=== PATIENT | female | born 1960 | race Caucasian/White ===

== ENCOUNTER → 2019-07-05 11:14 | Outpatient (CLI) | payer MEDICARE, SELFPAY ==
[2019-07-05 10:49] VITALS: BMI 47.8
[2019-07-05 12:37] LABS: Absolute Lymphocyte Count 1.11 X10^3/uL (0.83-4.51); Absolute Neutrophil Count 5.1 X10^3/uL (2.0-7.7); Basophil# 0.06 X10^3/uL; Basophil% 0.8 % (0-1); Eosinophil# 0.09 X10^3/uL; Eosinophils% 1.3 % (0-5); Hematocrit 28.2 % (37-47); Hemoglobin 6.5 g/dL (12.0-15.0); Lymphocyte # 1.11 X10^3/ul (4.0); Lymphocyte % 15.6 % (19-41); Mean Corpuscular Hgb 14.5 pg (27.0-32.0); Mean Corpuscular Volume 63.1 fL (81-99); Monocyte# 0.72 X10^3/uL; Monocyte% 10.1 % (0-10); NRBC Flagged by Analyzer 0.6 % (0-5); Neutrophil # 5.12 X10^3/uL (2.7-7.7); Neutrophil % 71.8 % (47-70); POSITIVE MORPHOLOGY YES; Platelet Count 402 K/mm3 (150-450); RBC Distribution Width CV 22.7 % (11.6-14.6); RBC Distribution Width SD 49.1 fl (35.1-43.9); Red Blood Count 4.47 M/mm3 (4.2-5.4); White Blood Count 7.1 K/mm3 (4.4-11.0)
[2019-07-05 12:40] LABS: Differential Indicated SCAN CRITERIA MET
[2019-07-05 12:50] LABS: International Normalized Ratio 1.2; Prothrombin Time (Protime)PT. 15.1 SECONDS (11.7-14.9)
[2019-07-05 13:06] LABS: Anisocytosis 2+; Hypochromasia 2+; Ovalocyte 1+
[2019-07-05 13:23] LABS: ALB/GLOB Ratio 0.9 RATIO (0.9-2.4); AST(SGOT) 13 U/L (15-37); Alanine Aminotransfer ALT/SGPT 16 U/L (13-56); Albumin, Serum 3.9 g/dL (3.2-5.0); Alkaline Phosphatase 58 U/L (45-117); Anion Gap 9 (5-15); BUN 13 mg/dL (7-18); BUN/Creat Ratio 12.9 RATIO (10-20); Calcium,Total 9.3 mg/dL (8.5-10.1); Chloride 107 mmol/L (98-107); Cholesterol 112 mg/dL (200); Creatinine, Serum 1.01 mg/dL (0.55-1.02); EST Glomerular Filtration Rate 59 mL/min (>60); Est Glom Filt Rate - Afr Amer 72 mL/min (>60); Globulin 4.2 g/dL (2.2-4.2); Glucose 109 mg/dL (74-106); High Density Lipoprotein 46 mg/dL; Potassium 3.8 mmol/L (3.5-5.1); Protein, Total 8.1 g/dL (6.4-8.2); Sodium Level 139 mmol/L (136-145); T4 Free Direct 1.29 ng/dL (0.76-1.46); Thyroid Stim Hormone (TSH) 1.93 uIU/mL (0.358-3.74); Triglycerides 83 mg/dL; Very Low Density Lipoprotein 17 mg/dL (5-40)
[2019-07-05 13:25] LABS: Hemoglobin A1c < 3.5 % (4.2-6.3)
== END ==
PROVIDERS: PCP Internal Medicine; Referring Provider Internal Medicine; Visit Provider Internal Medicine
DX: I10 Essential (primary) hypertension (principal); I26.99 Other pulmonary embolism without acute cor pulmonale; F32.9 Major depressive disorder, single episode, unspecified; R73.03 Prediabetes
CPT/HCPCS: 36415; 80053; 80061; 83036; 84439; 84443; 85025; 85610

== ENCOUNTER → 2019-08-13 | Outpatient (CLI) | payer MEDICARE, SELFPAY ==
[2019-07-05 10:49] VITALS: BMI 47.8
--- NOTE | 2019-08-13 11:02 | RAD_ITS ---
STUDY: X-RAY - LEFT KNEE REASON FOR EXAM: Knee pain. TECHNIQUE: 2 view(s) of the knee. COMPARISON: None. FINDINGS: Normal visualized distal femur. Normal visualized proximal tibia and fibula. Normal proximal tibiofibular articulation. There are marginal osteophytes and [id number] joint space narrowing of the medial femorotibial compartment. Normal lateral femorotibial compartment. There marginal osteophytes and moderate joint space narrowing of the patellofemoral articulation. There are intra-articular bodies. RAD/Knee 1 or 2 Views IMPRESSION: Arthrosis of the medial femorotibial and patellofemoral compartments. Intra-articular bodies. Electronically Signed: Adrian Barnes MD at 11:40 EDT Tel , Service support ,
--- NOTE | 2019-08-13 11:09 | RAD_ITS ---
STUDY: X-RAY - RIGHT KNEE REASON FOR EXAM: Knee pain. TECHNIQUE: 2 view(s) of the knee. COMPARISON: None. FINDINGS: Normal visualized distal femur. Normal visualized proximal tibia and fibula. Normal proximal tibiofibular articulation. There are marginal osteophytes with moderately severe joint space narrowing of the medial femorotibial compartment. Normal lateral femorotibial compartment. There are marginal osteophytes with moderate joint space narrowing of the patellofemoral articulation. There are intra-articular bodies. RAD/Knee 1 or 2 Views IMPRESSION: Arthrosis of the medial femorotibial and patellofemoral compartments. Intra-articular bodies. Electronically Signed: Adrian Barnes MD at 11:41 EDT Tel , Service support ,
--- NOTE | 2019-08-13 11:16 | RAD_ITS ---
STUDY: X-RAY - LUMBAR SPINE REASON FOR EXAM: Female, 58 years old. BACK PAIN TECHNIQUE: 2 view(s) of the lumbar spine were obtained. COMPARISON: None FINDINGS: There is minor degree of scoliosis with preserved lateral alignment. There are moderate diffuse degenerative changes. Mineralization is decreased. BMI severely elevated. There is no intestinal obstruction. There is cholecystectomy. RAD/Lumbar Spine 2 or 3 Views IMPRESSION: 1. Moderate accelerated degenerative change. 2. Severely elevated BMI. 3. Osteopenia. Electronically Signed: Cuate Sharma, at 16:33 EDT Tel , Service support ,
== END | disposition home or self-care (01) ==
LOC: RAD 10:56
PROVIDERS: PCP Internal Medicine; Referring Provider Anesthesiology Pain Medicine; Visit Provider Anesthesiology Pain Medicine
DX: M25.561 Pain in right knee (principal); M25.562 Pain in left knee; M54.5 Low back pain
CPT/HCPCS: 72100; 73560

== ENCOUNTER 2019-11-29 08:47 | Outpatient (RCR) | payer MEDICARE, SELFPAY ==
[2019-07-05 10:49] VITALS: BMI 47.8
--- NOTE | 2019-11-29 11:52 | HP.PTEVAL_ITS ---
Patient's Visit Information NICOLE DUMONT is a 59 year old F referred to Physical Therapy by Dr. Virgilio Martinez MD with a diagnosis of back and knee pain. Date of Evaluation: 11/29/19 Physical Therapist: PREM Saenz - Visit Plan Plan: Pt might need help in the water. Pt may need a walke in the pool for stability and rest breaks. Pt to be seen in the AT setting 2 X/ week for 8 weeks for AT for general mobility, B knee AROM, Stretching, strengthening (knee and hip), core stability, trunk AROM, postural exercises, gait training, standing endurance, stairs, with HEP (already issued heel slides, QS, Bridges, clam shells, LAQ and standing up straight at the counter to reverse so much sitting). - Subjective Pt reports that the Dr sent her here to see if PT will help her cause she is bone on bone B knees but the R one is the worse one and Back pain that she has had for years. She reports that is is too painful to walk almost at all. When she does walk she uses a rollator that she leans on. She maybe takes about 300 steps a day. She has seen a surgeon but she has to have weight loss surgery first before a TKR can happen. She walks 3 steps to get into the house with help of her daughter. SHe lives with her daughter and does not leave the house very much. No issues with rolling over in bed. She has trouble getting out of a chair because of her knees and that they are really bad. Never tried any other PT. She reports that she has a growth behine her R knee and it hurts all the time. She has been sitting in her chair for about 10 years. 3 months ago she had an injection in her R knee but it did not help. - Pain R knee pain Pain Intensity (Out of 10): 10 Pain Intensity Range: 10 Comment: with standing L knee pain Pain Intensity (Out of 10): 6 Pain Intensity Range: 6 Back pain Pain Intensity (Out of 10): 3 - Objective AROM: -35 degrees and 82 degree R knee flexion. AROM: -20 degrees and 85 degrees L knee flexion. MMT: Hip flex R 3-/5 and L 3-/5, hip abd 4-/5 B, bridge less than 1/4 normal ROM, knee ext R 3-/5 and L 3-/5, knee flexion R 3+/5 and L knee flex 3+/5. Gait: Pt walks with short stride, flexed trunk, - Anticipated Interventions Thank you for the opportunity to evaluate your patient. For Medicare and Medicare HMO plans, please review the plan of care and approve it. It will need to be FAXED BACK to us at [phone] for Medicare purposes. For Medicare only, by signing this I certify the plan of care. Please let me know if there are questions or concerns regarding this plan of care. Physician Signature: __Date:
--- NOTE | 2019-11-29 14:11 | HP.PTEVAL_ITS ---
Patient's Visit Information NICOLE DUMONT is a 59 year old F referred to Physical Therapy by Dr. Virgilio Martinez MD with a diagnosis of back and knee pain. Date of Evaluation: 11/29/19 Physical Therapist: PREM Saenz - Visit Plan Frequency: 2x /Week Duration: 2 Months Plan: Pt might need help in the water. Pt may need a walke in the pool for stability and rest breaks. Pt to be seen in the AT setting 2 X/ week for 8 weeks for AT for general mobility, B knee AROM, Stretching, strengthening (knee and hip), core stability, trunk AROM, postural exercises, gait training, standing endurance, stairs, with HEP (already issued heel slides, QS, Bridges, clam shells, LAQ and standing up straight at the counter to reverse so much sitting). - Subjective Pt reports that the Dr sent her here to see if PT will help her cause she is bone on bone B knees but the R one is the worse one and Back pain that she has had for years. She reports that is is too painful to walk almost at all. When she does walk she uses a rollator that she leans on. She maybe takes about 300 steps a day. She has seen a surgeon but she has to have weight loss surgery first before a TKR can happen. She walks 3 steps to get into the house with help of her daughter. SHe lives with her daughter and does not leave the house very much. No issues with rolling over in bed. She has trouble getting out of a chair because of her knees and that they are really bad. Never tried any other PT. She reports that she has a growth behine her R knee and it hurts all the time. She has been sitting in her chair for about 10 years. 3 months ago she had an injection in her R knee but it did not help. - Pain R knee pain Pain Intensity (Out of 10): 10 Pain Intensity Range: 10 Comment: with standing L knee pain Pain Intensity (Out of 10): 6 Pain Intensity Range: 6 Back pain Pain Intensity (Out of 10): 3 - Objective AROM: -35 degrees and 82 degree R knee flexion. AROM: -20 degrees and 85 degrees L knee flexion. MMT: Hip flex R 3-/5 and L 3-/5, hip abd 4-/5 B, bridge less than 1/4 normal ROM, knee ext R 3-/5 and L 3-/5, knee flexion R 3+/5 and L knee flex 3+/5. Gait: Pt walks with short stride, flexed trunk, and bent over a straight cane and does not put her L heel down with standing due to increase pain. SHe only walked about 20 feet and liked to hold onto the wall and her cane. Discussed bringing her rollator as she would be more safe with it. Seated posture: rounded shoulders, PPT, flexed trunk. Standing posture: rounded shoulders, flexed trunk, R knee bent and heel not touching the ground - Goals Goal 1:: I HEP Goal Time Frame: 6-8 Weeks Goal 2:: Be able to walk from the waiting room back to the treatment room or pool with her rollator with SBA Goal Time Frame: 6-8 Weeks Goal 3:: Decrease R knee pain to 6/10 and L knee pain 3/10 with walking with least restricitive device Goal Time Frame: 6-8 Weeks Goal 4:: Increase R knee AROM -20 degrees extension to 90 degrees flexion and L knee AROM -10 degrees extension to 90 degrees flexion Goal Time Frame: 6-8 Weeks Goal 5:: Increase LE strength by 1/2 muscle grade ( at time of the eval: MMT: Hip flex R 3-/5 and L 3-/5, hip abd 4-/5 B, bridge less than 1/4 normal ROM, knee ext R 3-/5 and L 3-/5, knee flexion R 3+/5 and L knee flex 3+/50. Goal Time Frame: 6-8 Weeks - Rehabilitation Potential Rehabilitation Potential: Good - Anticipated Interventions Patient/Client Instruction: Educate patient on: Condition, Plan of Care Therapeutic Exercise to Include: Strength training, Postural training, Gait and locomotor training, In an aquatic setting, Active ROM, Dynamic Lumbar Stabilization, Scapular Strength/Stabilization For the Purpose of:: To decrease pain, To increase ROM, To improve nutrient delivery to tissue, To improve muscle performance and motor function, To improve ability to perform ADL's, To increase tolerance to activity/condition/position, To improve performance and independence with ADL's, To improve ability of physical actions for home/community/work/leisure, To improve gait and locomotor functions, To decrease soft tissue restriction, To increase flexibility/ROM, To improve endurance, To improve balance, To improve safety with gait Functional Training to Include: Gait training For the Purpose of:: To improve safety with gait Thank you for the opportunity to evaluate your patient. For Medicare and Medicare HMO plans, please review the plan of care and approve it. It will need to be FAXED BACK to us at [phone] for Medicare purposes. For Medicare only, by signing this I certify the plan of care. Please let me know if there are questions or concerns regarding this plan of care. Physician Signature: Date:
--- NOTE | 2020-02-21 14:57 | HP.PT.NRP ---
NICOLE DUMONT was seen in my office for initial evaluation on 11/29/19. The following Plan of Care was established for this patient: Initial Frequency: 2x /Week Initial Duration: 2 Months Patient/Client Instruction: Educate patient on: Condition, Plan of Care Therapeutic Exercise to Include: Strength training, Postural training, Gait and locomotor training, In an aquatic setting, Active ROM, Dynamic Lumbar Stabilization, Scapular Strength/Stabilization For the Purpose of:: To decrease pain, To increase ROM, To improve nutrient delivery to tissue, To improve muscle performance and motor function, To improve ability to perform ADL's, To increase tolerance to activity/condition/position, To improve performance and independence with ADL's, To improve ability of physical actions for home/community/work/leisure, To improve gait and locomotor functions, To decrease soft tissue restriction, To increase flexibility/ROM, To improve endurance, To improve balance, To improve safety with gait Functional Training to Include: Gait training For the Purpose of:: To improve safety with gait This patient was last seen in our office 11/29/19. Pertinent comments regarding their Physical therapy will appear below: Pt cancelled all of her pool appointments and did not reschedule her appointments. DC PT At this point I will be discontinuing this patient from physical therapy. I would be happy to see this patient again in the future if found appropriate by the physician. Thank you! Bessy Gordon, MPT
== END 2019-11-29 19:00 | disposition home or self-care (01) ==
LOC: PT 08:47
PROVIDERS: PCP Internal Medicine; Referring Provider Anesthesiology Pain Medicine; Visit Provider Anesthesiology Pain Medicine
DX: M54.9 Dorsalgia, unspecified (principal); M25.569 Pain in unspecified knee
CPT/HCPCS: 97162

== ENCOUNTER 2020-07-18 08:52 | Inpatient (IN) | payer MEDICARE, SELFPAY ==
[2019-07-05 10:49] VITALS: BMI 47.8
[2020-07-18] VITALS (24 sets, daily range): BP systolic 93–134; BP diastolic 55–105; PULSE 81–146; RESP 13–32; TEMP 36.4–37.2; O2SAT 90–99; BMI 64.6; BMI 60.1; BMI 60.2
--- NOTE | 2020-07-18 09:19 | RAD_ITS ---
STUDY: X-RAY CHEST REASON FOR EXAM: Female, 59 years old. Cough TECHNIQUE: Frontal view of the chest COMPARISON: None. FINDINGS: There are mild congestive changes noted. The lungs are otherwise clear. There are no pleural effusions. There is no pneumothorax. The heart is enlarged. The visualized osseous structures are within normal limits. RAD/Chest 1 View (Portable) IMPRESSION: Cardiomegaly with mild pulmonary vascular congestion. Electronically Signed: Ralph Musa MD at 10:17 EST Tel , Service support ,
--- NOTE | 2020-07-18 09:19 | CT_ITS ---
STUDY: CT ABDOMEN AND PELVIS WITHOUT CONTRAST REASON FOR EXAM: Female, 59 years old. Abdominal pain RADIATION DOSAGE (If Supplied By Facility): CTDIvol = ( 37.88 ) mGy, DLP = ( 1798.06 ) mGycm TECHNIQUE: Transaxial images were obtained from the dome of the diaphragm to the symphysis pubis without oral contrast, and without intravenous contrast. Sagittal and coronal images were reconstructed. Individualized dose optimization techniques were used for this CT. COMPARISON: None. FINDINGS: Evaluation of the abdominal viscera is limited in the absence of intravenous contrast. There is atelectasis at the lung bases. There is a trace right pleural effusion. The visualized portions of the heart and pericardium are within normal limits. The patient is status post cholecystectomy. The liver is low in density, consistent with fatty infiltration. The spleen is normal in size. The pancreas demonstrates an unremarkable unenhanced appearance. The adrenal glands are within normal limits. There are no renal or ureteral stones. There is no hydronephrosis. There is a moderate hiatal hernia. There is no bowel obstruction or inflammation. The appendix is visualized and appears normal. There is a small fat-containing umbilical hernia. There is anasarca in the lower anterior abdominal wall. The aorta is normal in caliber. There is a small amount of free fluid. There is no free air, fluid collection or lymphadenopathy. There are no destructive osseous lesions. There are degenerative changes noted in the spine. CT/Abdomen/Pelvis without Cont IMPRESSION: No bowel obstruction or inflammation. Normal appendix. No urinary calculi. No hydronephrosis. Moderate hiatal hernia. Small fat-containing umbilical hernia. Small amount of ascites. Anasarca. Trace right pleural effusion with overlying atelectasis. Electronically Signed: Ralph Musa MD at 10:33 EST Tel , Service support ,
[2020-07-18] MEDS: 0.9% Normal Saline 1,000 ML 150 ML IV (09:43)
[2020-07-18 10:14] LABS: Absolute Lymphocyte Count 1.13 X10^3/uL (0.83-4.51); Absolute Neutrophil Count 18.9 X10^3/uL (2.0-7.7); Basophil# 0.06 X10^3/uL; Basophil% 0.3 % (0-1); Eosinophils% 0.5 % (0-5); Hematocrit 32.5 % (37-47); Hemoglobin 8.7 g/dL (12.0-15.0); Lymphocyte # 1.13 X10^3/ul (4.0); Lymphocyte % 5.1 % (19-41); Mean Corp Hgb Conc 26.8 g/dL (32-36); Mean Corpuscular Hgb 17.8 pg (27.0-32.0); Mean Corpuscular Volume 66.6 fL (81-99); Monocyte# 1.58 X10^3/uL; Monocyte% 7.2 % (0-10); NRBC Flagged by Analyzer 0.2 % (0-5); Neutrophil # 18.93 X10^3/uL (2.7-7.7); Neutrophil % 85.6 % (47-70); POSITIVE DIFFERENTIAL YES; POSITIVE MORPHOLOGY YES; Platelet Count 302 K/mm3 (150-450); RBC Distribution Width CV 23.7 % (11.6-14.6); RBC Distribution Width SD 53.9 fl (35.1-43.9); Red Blood Count 4.88 M/mm3 (4.2-5.4); White Blood Count 22.1 K/mm3 (4.4-11.0)
[2020-07-18 10:30] LABS: ALB/GLOB Ratio 0.8 RATIO (0.9-2.4); AST(SGOT) 19 U/L (15-37); Alanine Aminotransfer ALT/SGPT 22 U/L (13-56); Albumin, Serum 3.3 g/dL (3.2-5.0); Alkaline Phosphatase 53 U/L (45-117); Anion Gap 9 (5-15); BUN 23 mg/dL (7-18); BUN/Creat Ratio 18.1 RATIO (10-20); Calcium,Total 8.4 mg/dL (8.5-10.1); Chloride 102 mmol/L (98-107); Creatinine, Serum 1.27 mg/dL (0.55-1.02); EST Glomerular Filtration Rate 45 mL/min (>60); Est Glom Filt Rate - Afr Amer 55 mL/min (>60); Estimated Creatinine Clearance 33.41 ml/min; Globulin 3.9 g/dL (2.2-4.2); Glucose 134 mg/dL (74-106); Lipase 45 U/L (73-393); Potassium 3.6 mmol/L (3.5-5.1); Protein, Total 7.2 g/dL (6.4-8.2); Sodium Level 137 mmol/L (136-145)
[2020-07-18 10:34] LABS: Differential Indicated SCAN CRITERIA MET
--- NOTE | 2020-07-18 11:02 | ED.VISSUMM ---
- ER Visit Summary Date of Service: 07/18/20 Chief Complaint: [Abdominal pain] History of Present Illness: The patient is a 59 F [presents to the emergency department with complaint of abdominal pain intermittently for the last week. Patient states that she has had no nausea or vomiting. Patient has had some loose stool for the last couple of days approximately 2/day. Patient denies any blood in her stool or black tarry stool. Patient also states that she is had a fever for the last couple of days. She denies any dysuria, urgency, or frequency. Patient denies any chest pain or shortness of breath. Patient has history of hypertension and she is had prior cholecystectomy. She denies any COVID-19 exposures.] Physical Examination: [HEENT-PERRLA, EOMI. Cranial nerves II through XII grossly intact. TMs clear. Mucous membranes moist. No adenopathy. Cardiovascular-irregularly irregular with no murmurs auscultated. Patient is tachycardic with a heart rate in the 140s. Lungs-clear to auscultation, chest wall stable without crepitus or subcu emphysema Abdomen-normoactive bowel sounds, soft, nontender, no rebound or rigidity, no peritoneal signs. Extremities-intact ?4, normal range of motion, normal pulses, atraumatic] Test Results: [EKG obtained arrival showed atrial fibrillation with a ventricular rate of 138 bpm with an incomplete right bundle branch block and nonspecific ST changes. CBC with differential showed a white count 22,000, hemoglobin 8.7, hematocrit 32, placed 302. Chemistries unremarkable. BUN was 23 and creatinine 1.27. Troponin was 0.016. Covid test was negative. Urinalysis ordered and pending. Chest x-ray 1 view obtained read by myself as no acute disease process and the radiologist thought she had some mild cardiomegaly and mild pulmonary vascular congestion. CT scan of the abdomen pelvis without contrast showed trace pleural effusion on the right otherwise nothing acute.] Emergency Department Course and Treatment: [The line established on arrival. Patient had blood cultures ordered. Patient was started empirically on Zosyn 4.5 g IV.] Patient received Cardizem 20 mg IV bolus. Treatment Plan: [Admit] Disposition: [Admit] Impression: [A. fib RVR-new onset Fever with leukocytosis-etiology uncertain] This note was generated with Dragon dictation software. It may contain incorrect words, spelling, and punctuation that were not noted in review of the chart prior to signing ED Disposition - Plan for ED Patient: Referrals: Emily Husain MD [Primary Care Provider] -
[2020-07-18 11:06] LABS: Differential Comment SCANNED
[2020-07-18 11:07] LABS: Anisocytosis 2+; Hypochromasia 1+; Macrocytosis 1+; Microcytosis 1+
[2020-07-18] MEDS: dilTIAZem 25 MG/5 ML Vial 20 MG IV BOLUS (11:11)
--- NOTE | 2020-07-18 11:19 | ECHOCS_ITS ---
Reason For Study: Afib/Flutter Procedure This was a 2D Doppler, Color Flow transthoracic echocardiogram. The study was technically difficult. Contrast injection was performed. Exam performed portable in ED. Left Ventricle Normal LV size. Technically limited study due to a fib with RVR. Unable to comment on LVEF. Please repeat echo when hearrt rate is bettter controlled. unable to comment on wall motion. Right Ventricle Mildly dilated right ventricle. Normal systolic function. Atria Normal left atrium. Normal right atrium. No doppler evidence for ASD. Mitral Valve There is mild to moderate mitral annular calcification. There is no mitral valve stenosis. Mild (1+) mitral valve insufficiency. Tricuspid Valve There is no tricuspid stenosis. Mild tricuspid valve insufficiency. Pulmonary artery systolic pressure is 55 mmHg. Aortic Valve Trisinus/trileaflet aortic valve. There is no aortic stenosis. No aortic valve insufficiency. Pulmonic Valve There is no pulmonic valvular stenosis. Trivial pulmonic valve insufficiency. Great Vessels Normal aortic root. Pericardium/Pleural No pericardial effusion. Medication Diluted definity 3ml given slow IV push to enhance endocardial definition. MMode/2D Measurements & Calculations LVIDd: 4.6 cm IVSd: 1.1 cm Ao root diam: 2.9 cm LVIDs: 3.8 cm LVPWd: 1.2 cm LA dimension: 4.1 cm FS: 17.6 % LAV(MOD-bp): 68.6 ml LA A4 area: 22.0 cm2 RA A4 area: 21.7 cm2 LAV(MOD-bp) Indexed: 29.7 ml/m2 LAV(MOD-sp2): 64.6 ml LAV(MOD-sp4): 68.8 ml Doppler Measurements & Calculations MV E max richmond: 118.6 cm/sec Ao V2 max: 120.0 cm/sec LV V1 max: 98.1 cm/sec Ao max P.8 mmHg LV V1 max P.9 mmHg MR max richmond: 411.5 cm/sec PA V2 max: 74.2 cm/sec TR max [place]: 332.9 cm/sec MR max P.7 mmHg TR max P.3 mmHg Interpretation Summary Technically limited study due to a fib with RVR. Unable to comment on LVEF. Please repeat echo when heart rate is bettter controlled. Mild (1+) mitral valve insufficiency. Mildly dilated right ventricle. Pulmonary artery systolic pressure is 55 mmHg. The study was technically limited. Contrast injection was performed. Ordering Physician: Balbir Lyon Referring Physician: Emily Husain Performed By: Valeriano Godoy RCS
--- NOTE | 2020-07-18 11:33 | HP.PCM_ITS ---
Problem List (1) Febrile illness, acute Status: Acute (2) Atrial fibrillation with RVR Status: Acute (3) Pulmonary embolism Status: Resolved Comment: 2008 (4) GERD (gastroesophageal reflux disease) Status: Chronic (5) Hives Status: Resolved (6) High blood pressure Status: Chronic (7) Gallstones Status: Resolved (8) Carpal tunnel syndrome Status: Chronic (9) Encounter for blood transfusion Status: Resolved (10) Blood clot in vein Status: Resolved Comment: Rt leg 2014 (11) Back problem Status: Chronic (12) Arthritis Status: Chronic (13) Allergies Status: Chronic History of Present Illness Date of Admission: 07/18/20 Chief Complaint: Generalized weakness and fever The patient is a 59 year old F has medical history is gone for previous PE on Coumadin who presented to the emergency department with generalized weakness. Patient symptoms started a week prior to her admission with abdominal pain. Danielle callahan has also noticed some loose stools for the past 2 days prior to admission. She also did experience aches as well as subjective fevers. Patient presented to the emergency department as a result of worsening symptoms. Patient denied any exposure in a patient with COVID-19. She lives with her daughter. Urgency department patient was found to be tachycardic EKG obtained demonstrated A. fib with RVR. His rapid antigen test came back negative however given her presentation an order was given for undergo PCR testing. Past Medical History Past Medical History (Chronic Problems): Chronic Problems (This Medical Record has been edited. Action required.) GERD (gastroesophageal reflux disease) (Chronic) High blood pressure (Chronic) Carpal tunnel syndrome (Chronic) Back problem (Chronic) Arthritis (Chronic) Allergies (Chronic) Medical History: Medical History (This Medical Record has been edited. Action required.) Pulmonary embolism (Resolved) I26.99 2007 GERD (gastroesophageal reflux disease) (Chronic) K21.9 Hives (Resolved) L50.9 High blood pressure (Chronic) I10 Gallstones (Resolved) K80.20 Carpal tunnel syndrome (Chronic) G56.00 Encounter for blood transfusion (Resolved) Z51.89 Blood clot in vein (Resolved) I82.90 Rt leg 2014 Back problem (Chronic) M53.9 Arthritis (Chronic) M19.90 Allergies (Chronic) T78.40XA Allergies enoxaparin [From Lovenox] Allergy (Severe, Verified 07/18/20 08:53) Rash & Itching green tea Allergy (Intermediate, Verified 07/18/20 08:53) Itching peaches Allergy (Severe, Uncoded 07/18/20 08:53) Unknown Home Medications: Ambulatory Orders Medication Instructions Recorded Circulation Vein Support PO 07/05/19 Fish Oil PO 07/05/19 Iron Pill PO 07/05/19 acetaminophen 325 mg tablet 325 mg PO BID PRN tab 07/05/19 calcium carb-magnesium carb PO 07/05/19 cholecalciferol (vitamin D3) 125 125 mcg PO DAILY 07/05/19 mcg (5,000 unit) capsule mecobalamin (vitamin B12) PO 07/05/19 sertraline 50 mg tablet 50 mg PO DAILY #60 tab 07/05/19 warfarin 5 mg tablet 5 mg PO DAILY #90 tab 07/06/19 lisinopril 20 mg tablet 20 mg PO DAILY #90 tab 07/09/19 pantoprazole 40 mg tablet,delayed 40 mg PO DAILY #90 tab 04/08/20 release Surgical History: Surgical History (This Medical Record has been edited. Action required.) History of cholecystectomy Z90.49 History of oral surgery Z98.890 Smoking Status: Former smoker - *Family History Maternal Family History: Family History (This Medical Record has been edited. Action required.) Mother Diabetes High cholesterol Father Diabetes Heart disease Hypertension Sister Diabetes High cholesterol Brother Diabetes Paternal Family History: Family History (This Medical Record has been edited. Action required.) Mother Diabetes High cholesterol Father Diabetes Heart disease Hypertension Sister Diabetes High cholesterol Brother Diabetes Review of Systems Constitutional: Reports: Anorexia, Chills, Fever, Malaise, Weakness HEENT: Denies: Head Aches, Sinus Congestion, Sinus Drainage Cardiovascular: Denies: Chest Pain, Orthopnea, Palpitations, Paroxysmal Noc. Dyspnea Gastrointestinal: Reports: Abdominal Pain, Nausea, Vomiting Genitourinary: Denies: Dysuria, Frequency, Hematuria, Urgency Musculoskeletal: Reports: Joint Pain Skin: Denies: Rash Neurological: Denies: Focal weakness, Numbness, Tingling Psychiatric: Denies: Homicidal Ideations, Suicidal Ideations VTE Information - Inpt Only VTE Present on Admission: No VTE Mechan Device Prophylaxis: None VTE Pharm Prophylaxis ordered?: Yes Patient Problems: Active and Suspected Problems (This Medical Record has been edited. Action required.) Febrile illness, acute (Acute) Atrial fibrillation with RVR (Acute) Objective: GENERAL: Appears ill-looking HEENT: Atraumatic; EYES; Anicteric, Normal Conjunctiva NECK; supple, normal thyroid, RESPIRATORY: Diminished to auscultation CARDIOVASCULAR: Regular S1 S2, GI: soft, normoactive bowel sounds, : No Renal angle tenderness; EXTREMITIES: No edema, no clubbing, MUSCULOSKELETAL: no muscle waisting NEURO: Awake; no lateralizing signs. SKIN: No Rash PSYCH; Flat affect - Physical Exam Vitals/I&O's: Vital Signs Temp Pulse Resp BP Pulse Ox 98.1 F 135 H 29 H 134/99 H 94 07/18/20 08:54 07/18/20 11:09 07/18/20 11:09 07/18/20 11:09 07/18/20 11:09 Oxygen Delivery Method Room Air Weight: 150.1 kg Body Mass Index (BMI) 64.6 Microbiology Past 72 Hours 07/18/20 09:30 Mucosa - Nose SARS-CoV-2 Antigen (Rapid) - Final Laboratory Results 07/18/20 09:30: WBC 22.1 H, RBC 4.88, Hgb 8.7 L, Hct 32.5 L, MCV 66.6 L, MCH 17.8 L, MCHC 26.8 L, RDW Std Deviation 53.9 H, RDW Coeff of Claudia 23.7 H, Plt Count 302, Immature Gran % (Auto) 1.300 H, Neut % (Auto) 85.6 H, Lymph % (Auto) 5.1 L, [place] % (Auto) 7.2, Eos % (Auto) 0.5, Baso % (Auto) 0.3, Absolute Neuts (auto) 18.9 H, Absolute Lymphs (auto) 1.13, Nucleated RBC % 0.2, Differential Comment SCANNED, Diff Path Review May foll, Hypochromasia 1+, Anisocytosis 2+, Microcytosis 1+, Macrocytosis 1+ 07/18/20 09:30: Sodium 137, Potassium 3.6, Chloride 102, Carbon Dioxide 26.0, Anion Gap 9, BUN 23 H, Creatinine 1.27 H, Estim Creat Clear Calc 33.41, Est GFR (MDRD) Af Amer 55 L, Est GFR (MDRD) Non-Af 45 L, BUN/Creatinine Ratio 18.1, Glucose 134 H, Calcium 8.4 L, Total Bilirubin 2.80 H, AST 19, ALT 22, Alkaline Phosphatase 53, Troponin I 0.016, Total Protein 7.2, Albumin 3.3, Globulin 3.9, Albumin/Globulin Ratio 0.8 L, Lipase 45 L 07/18/20 09:45: PT Pending, INR Pending 07/18/20 11:30: Lactic Acid Pending Current Medications Acetaminophen (Acetaminophen 325 Mg Tablet) 650 mg PO Q6H PRN PRN PRN Reason: Pain Score 1-10/Temp > 100.7 F Al Hydroxide/Mg Hydroxide (Mag Hydrox/Al Hydrox/Simeth 30 Ml Udc) 30 ml PO Q6H PRN PRN PRN Reason: Gastric Burning Albuterol Sulfate (Albuterol 2.5 Mg/3 Ml Vial.Neb.) 2.5 mg INHALATION Q2H PRN PRN PRN Reason: SOB/Wheezing Sodium Chloride () 1,000 mls @ 150 mls/hr IV .Q6H40M [facility] Last Admin: 07/18/20 09:43 Dose: 150 mls/hr Documented by: Diltiazem HCl 125 mg/ Dextrose 125 mls @ 5 mls/hr IV .Q25H [facility]; Protocol Sodium Chloride () 1,000 mls @ 125 mls/hr IV .Q8H [facility] Stop: 07/19/20 03:19 Lisinopril (Lisinopril 20 Mg Tablet) 20 mg PO DAILY [facility] Magnesium Hydroxide (Magnesium Hydroxide 30 Ml Udc) 30 ml PO DAILY PRN PRN PRN Reason: Constipation Melatonin (Melatonin 3 Mg Tablet) 3 mg PO QHS PRN PRN PRN Reason: INSOMNIA Nitroglycerin (Nitroglycerin (Inpatient Use) 0.4 Mg Tab.Subl) 0.4 mg SUBLINGUAL Q5M PRN PRN Reason: CARDIAC/CHEST PAIN Ondansetron HCl (Ondansetron 4 Mg/2 Ml Vial) 4 mg IV Q8H PRN PRN PRN Reason: NAUSEA/VOMITING Oxycodone HCl (Oxycodone 5 Mg Tablet) 5 mg PO Q4H PRN PRN PRN Reason: Pain Score 4-5 Oxycodone HCl (Oxycodone 5 Mg Tablet) 10 mg PO Q4H PRN PRN PRN Reason: Pain Score 6-10 Pantoprazole Sodium (Pantoprazole Sodium 40 Mg Tablet) 40 mg PO DAILY [facility] Promethazine HCl (Promethazine 25 Mg/Ml Syringe) 25 mg IM Q6H PRN PRN PRN Reason: Breakthrough Nausea/Vomiting Sertraline HCl (Sertraline 50 Mg Tablet) 50 mg PO DAILY [facility] Warfarin Sodium (Warfarin 5 Mg Tablet) 5 mg PO DAILY [facility] Assessment/Plan All Active Problems (This Medical Record has been edited. Action required.) Febrile illness, acute (Acute) Atrial fibrillation with RVR (Acute) Pulmonary embolism (Resolved) Hives (Resolved) Gallstones (Resolved) Encounter for blood transfusion (Resolved) Blood clot in vein (Resolved) Patient is a 59-year-old lady presented with abdominal pain, generalized weakness as well as subjective fever found to be in A. fib with RVR with leukocytosis and elevated lactic acid level with no obvious source of infection 1. Acute febrile illness ?Has no obvious source of infection, patient initially work-up including rapid COVID-19 antigen test came back negative however suspicion remains high hence requesting for PCR (Came back negative) 2. Paroxysmal A. fib with RVR ?Patient started on Cardizem titrated to keep heart rate less than 100. Patient already on Coumadin with a therapeutic INR 3. History of pulmonary embolism ?Is on Coumadin with a therapeutic INR 4. Lactic acidosis ?No obvious etiology. Checks x-ray obtained demonstrated normal nares vascular congestion and atelectasis. Ordered urinalysis in addition to PCR for COVID-19 5. Generalized osteoarthritis -pain meds as needed 6. Morbid obesity with BMI of 64.4 ?Weight loss advised 7. DVT prophylaxis ?Patient already on Coumadin Inpatient E&M: 34977 Init Hosp L3
[2020-07-18 11:38] LABS: International Normalized Ratio 2.5; Prothrombin Time (Protime)PT. 26.2 SECONDS (11.7-14.9)
[2020-07-18 12:21] LABS: Lactic Acid 2.1 mmol/L (0.4-1.9)
[2020-07-18] MEDS: oxyCODONE 5 MG Tablet 10 MG PO (13:41)
[2020-07-18 14:11] LABS: Fibrinogen 511 mg/dl (203-444)
[2020-07-18 14:19] LABS: CPK Total, Creatine Kinase 95 U/L (26-192); LDH 214 U/L (84-246)
[2020-07-18 14:23] LABS: D-Dimer Quantitative (DVT/PE) 1.32 FEU/ug/m (0.27-0.49)
[2020-07-18 14:35] LABS: Procalcitonin 1.21 ng/mL (0.00-0.09)
[2020-07-18 15:31] LABS: Reflex Lactate? Y
[2020-07-18] MEDS: 0.9% Normal Saline 1,000 ML 125 ML IV ×2 (15:39→23:03)
[2020-07-18 17:02] LABS: Lactic Acid 1.8 mmol/L (0.4-1.9)
--- NOTE | 2020-07-18 20:20 | PCS.PANDOC ---
PANDEMIC DOCUMENTATION INITIATED: Date: 07/18/2020 Time: 1900
[2020-07-18 23:11] LABS: Mucous, Urine 0 SEEN /hpf (<or=2+)
[2020-07-18 23:16] LABS: Color, Urine Amber (Yellow); Glucose, Dipstick Normal (Normal); Ketone-Dipstick 5 mg/dl (Negative); Leukocyte Esterase-Dipstick 500 /ul (Negative); Nitrite-Dipstick Positive (Negative); Occult Blood-Urine 250 /ul (Negative); Protein-Dipstick 100 mg/dl (Negative); Specific Gravity, Urine 1.025 (1.002-1.030); Urine Clarity Turbid (Clear); Urine Urobilinogen 8 mg/dl (Normal)
[2020-07-18 23:21] LABS: Urine Bilirubin Dipstick 3 mg/dL (Negative)
[2020-07-18 23:39] LABS: Amorphous Sediment 1+; Bacteria 4+ /hpf (None Seen); Red Blood Cells-Urine 10-25 SEEN /hpf (0-5); Squamous Epithelial Cells - UA 5-10 SEEN /hpf (5-10); Transitional Epithelial - Ur 0-5 SEEN /hpf (0-5); White Blood Cells >100 SEEN /hpf (0-5)
[2020-07-19] VITALS (29 sets, daily range): BP systolic 85–121; BP diastolic 53–85; PULSE 81–106; RESP 16–30; TEMP 36.4–37.1; O2SAT 90–99
[2020-07-19] MEDS: Ceftriaxone 1 GM/50 ML BAG IV ×2 (01:13→21:30)
[2020-07-19] MEDS: Acetaminophen 325 MG Tablet 650 MG PO ×2 (01:16→19:46)
[2020-07-19 06:13] LABS: Absolute Lymphocyte Count 1.64 X10^3/uL (0.83-4.51); Absolute Neutrophil Count 11.8 X10^3/uL (2.0-7.7); Basophil# 0.04 X10^3/uL; Basophil% 0.3 % (0-1); Eosinophil# 0.07 X10^3/uL; Eosinophils% 0.5 % (0-5); Hematocrit 31.7 % (37-47); Hemoglobin 8.1 g/dL (12.0-15.0); Lymphocyte # 1.64 X10^3/ul (4.0); Mean Corp Hgb Conc 25.6 g/dL (32-36); Mean Corpuscular Hgb 17.5 pg (27.0-32.0); Mean Corpuscular Volume 68.6 fL (81-99); Mean Platelet Vol. 10.6 fl (6.2-12.0); Monocyte# 1.38 X10^3/uL; Monocyte% 9.2 % (0-10); NRBC Flagged by Analyzer 0.3 % (0-5); Neutrophil # 11.77 X10^3/uL (2.7-7.7); Neutrophil % 78.6 % (47-70); POSITIVE MORPHOLOGY YES; Platelet Count 266 K/mm3 (150-450); RBC Distribution Width CV 23.9 % (11.6-14.6); RBC Distribution Width SD 56.7 fl (35.1-43.9); Red Blood Count 4.62 M/mm3 (4.2-5.4)
[2020-07-19 06:17] LABS: Differential Indicated SCAN CRITERIA MET
[2020-07-19 06:19] LABS: International Normalized Ratio 2.5; Prothrombin Time (Protime)PT. 26.9 SECONDS (11.7-14.9)
[2020-07-19 06:42] LABS: ALB/GLOB Ratio 0.8 RATIO (0.9-2.4); AST(SGOT) 16 U/L (15-37); Alanine Aminotransfer ALT/SGPT 22 U/L (13-56); Albumin, Serum 3.1 g/dL (3.2-5.0); Alkaline Phosphatase 58 U/L (45-117); Anion Gap 6 (5-15); BUN 28 mg/dL (7-18); BUN/Creat Ratio 24.6 RATIO (10-20); Calcium,Total 8.3 mg/dL (8.5-10.1); Chloride 103 mmol/L (98-107); Creatinine, Serum 1.14 mg/dL (0.55-1.02); EST Glomerular Filtration Rate 51 mL/min (>60); Est Glom Filt Rate - Afr Amer 62 mL/min (>60); Estimated Creatinine Clearance 40.99 ml/min; Glucose 107 mg/dL (74-106); Protein, Total 7.1 g/dL (6.4-8.2); Sodium Level 135 mmol/L (136-145)
[2020-07-19 06:47] LABS: Differential Comment SCANNED
[2020-07-19 06:48] LABS: Hypochromasia 2+
[2020-07-19 06:49] LABS: Anisocytosis 2+; Macrocytosis RARE; Microcytosis 2+; Ovalocyte RARE; Target Cells RARE
[2020-07-19 06:50] LABS: Schistocytes RARE
--- NOTE | 2020-07-19 07:30 | PCM.PN.HOSP ---
Patient Problems: Active and Suspected Problems (This Medical Record has been edited. Action required.) Febrile illness, acute (Acute) Atrial fibrillation with RVR (Acute) Reason for Visit: Sepsis New onset A. fib with RVR Subjective: Patient is a 59-year-old lady presented with abdominal pain, generalized weakness as well as subjective fever found to be in A. fib with RVR with leukocytosis and elevated lactic acid level with no obvious source of infection. Admitted to a monitored bed subsequent evaluation did reveal presence of acute cystitis antibiotics subsequently initiated Patient had runs of sustained VT. Objective: GENERAL: Appears ill-looking HEENT: Atraumatic; EYES; Anicteric, Normal Conjunctiva NECK; supple, normal thyroid, RESPIRATORY: Diminished to auscultation CARDIOVASCULAR: S1-S2 tachycardic GI: soft, normoactive bowel sounds, : No Renal angle tenderness; EXTREMITIES: No edema, no clubbing, MUSCULOSKELETAL: no muscle waisting NEURO: Awake; no lateralizing signs. SKIN: No Rash PSYCH; Flat affect Vitals/I&O's: Vital Signs Temp Pulse Resp BP Pulse Ox 97.5 F L 88 24 H 105/77 94 07/19/20 06:00 07/19/20 07:00 07/19/20 07:00 07/19/20 07:00 07/19/20 07:00 Oxygen Flow Rate (L/min) 2 Oxygen Delivery Method Room Air Weight: 149.2 kg Body Mass Index (BMI) 60.1 Intake and Output for Last 24 Hours 07/17/20 07/18/20 07/19/20 23:59 23:59 23:59 Intake Total 2715.33 / 2730.33 420 / 420 Balance 2715.33 / 2730.33 420 / 420 Microbiology Past 72 Hours 07/18/20 09:30 Mucosa - Nose SARS-CoV-2 Antigen (Rapid) - Final Laboratory Results 07/18/20 09:20: Fibrinogen 511 H, D-Dimer Quant (PE/DVT) 1.32 H* 07/18/20 09:30: WBC 22.1 H, RBC 4.88, Hgb 8.7 L, Hct 32.5 L, MCV 66.6 L, MCH 17.8 L, MCHC 26.8 L, RDW Std Deviation 53.9 H, RDW Coeff of Claudia 23.7 H, Plt Count 302, Immature Gran % (Auto) 1.300 H, Neut % (Auto) 85.6 H, Lymph % (Auto) 5.1 L, [place] % (Auto) 7.2, Eos % (Auto) 0.5, Baso % (Auto) 0.3, Absolute Neuts (auto) 18.9 H, Absolute Lymphs (auto) 1.13, Nucleated RBC % 0.2, Differential Comment SCANNED, Diff Path Review May foll, Hypochromasia 1+, Anisocytosis 2+, Microcytosis 1+, Macrocytosis 1+ 07/18/20 09:30: Sodium 137, Potassium 3.6, Chloride 102, Carbon Dioxide 26.0, Anion Gap 9, BUN 23 H, Creatinine 1.27 H, Estim Creat Clear Calc 33.41, Est GFR (MDRD) Af Amer 55 L, Est GFR (MDRD) Non-Af 45 L, BUN/Creatinine Ratio 18.1, Glucose 134 H, Calcium 8.4 L, Total Bilirubin 2.80 H, AST 19, ALT 22, Alkaline Phosphatase 53, Troponin I 0.016, Total Protein 7.2, Albumin 3.3, Globulin 3.9, Albumin/Globulin Ratio 0.8 L, Lipase 45 L 07/18/20 09:30: TSH 2.80 07/18/20 09:45: PT 26.2 H, INR 2.5 07/18/20 09:45: Procalcitonin 1.21 H 07/18/20 11:30: Lactic Acid 2.1 H* 07/18/20 11:46: COVID-19 (OLINDA) Negative 07/18/20 13:36: Lactate Dehydrogenase 214, Total Creatine Kinase 95, Troponin I 0.019, C-React Prot Ext Range 168.00 H 07/18/20 16:23: Troponin I < 0.015 07/18/20 16:23: Lactic Acid 1.8 07/18/20 22:56: Urine Color Gwen, Urine Clarity Turbid, Urine pH 5.0, Ur Specific [place] 1.025, Urine Protein 100 H, Urine Glucose (UA) Normal, Urine Ketones 5 H, Urine Occult Blood 250 H, Urine Nitrite Positive H, Urine Bilirubin 3 H, Urine Urobilinogen 8 H, Ur Leukocyte Esterase 500 H, Urine RBC 10-25 SEEN, Urine WBC >100 SEEN, Ur Squamous Epith Cells 5-10 SEEN, Ur Transition Epith Cell 0-5 SEEN, Amorphous Sediment 1+, Urine Bacteria 4+, Urine Mucus 0 SEEN 07/19/20 05:40: WBC 15.0 H, RBC 4.62, Hgb 8.1 L, Hct 31.7 L, MCV 68.6 L, MCH 17.5 L, MCHC 25.6 L, RDW Std Deviation 56.7 H, RDW Coeff of Claudia 23.9 H, Plt Count 266, MPV 10.6, Immature Gran % (Auto) 0.400, Neut % (Auto) 78.6 H, Lymph % (Auto) 11.0 L, [place] % (Auto) 9.2, Eos % (Auto) 0.5, Baso % (Auto) 0.3, Absolute Neuts (auto) 11.8 H, Absolute Lymphs (auto) 1.64, Nucleated RBC % 0.3, Differential Comment SCANNED, Hypochromasia 2+, Anisocytosis 2+, Microcytosis 2+, Macrocytosis RARE, Target Cells RARE, Ovalocytes RARE, Schistocytes RARE 07/19/20 05:40: PT 26.9 H, INR 2.5 07/19/20 05:40: Sodium 135 L, Potassium 4.0, Chloride 103, Carbon Dioxide 26.0, Anion Gap 6, BUN 28 H, Creatinine 1.14 H, Estim Creat Clear Calc 40.99, Est GFR (MDRD) Af Amer 62, Est GFR (MDRD) Non-Af 51 L, BUN/Creatinine Ratio 24.6 H, Glucose 107 H, Calcium 8.3 L, Total Bilirubin 1.90 H, AST 16, ALT 22, Alkaline Phosphatase 58, Total Protein 7.1, Albumin 3.1 L, Globulin 4.0, Albumin/Globulin Ratio 0.8 L Current Medications Acetaminophen (Acetaminophen 325 Mg Tablet) 650 mg PO Q6H PRN PRN PRN Reason: Pain Score 1-10/Temp > 100.7 F Last Admin: 07/19/20 01:16 Dose: 650 mg Documented by: Al Hydroxide/Mg Hydroxide (Mag Hydrox/Al Hydrox/Simeth 30 Ml Udc) 30 ml PO Q6H PRN PRN PRN Reason: Gastric Burning Albuterol Sulfate (Albuterol 2.5 Mg/3 Ml Vial.Neb.) 2.5 mg INHALATION Q2H PRN PRN PRN Reason: SOB/Wheezing Diltiazem HCl 125 mg/ Dextrose 125 mls @ 5 mls/hr IV .Q25H [facility]; Protocol Last Admin: 07/19/20 07:01 Dose: 15 mg/hr, 15 mls/hr Documented by: Sodium Chloride () 250 mls @ 15 mls/hr IV .[id number] PRN PRN Reason: Saline Flush Sodium Chloride () 250 mls @ 15 mls/hr IV .[id number] PRN PRN Reason: Additional IVPB Infusion Ceftriaxone Sodium (Rocephin) 1 gm in 50 mls @ 100 mls/hr IV QHS [facility] Last Infusion: 07/19/20 01:43 Dose: Infused Documented by: Influenza Virus Vaccine Quadrival (Influenza Vaccine (6mos+)/Pf 0.5 Ml Syringe) 0.5 ml IM .ONCE ONE Stop: 07/19/20 10:01 Lisinopril (Lisinopril 20 Mg Tablet) 20 mg PO DAILY [facility] Magnesium Hydroxide (Magnesium Hydroxide 30 Ml Udc) 30 ml PO DAILY PRN PRN PRN Reason: Constipation Melatonin (Melatonin 3 Mg Tablet) 3 mg PO QHS PRN PRN PRN Reason: INSOMNIA Nitroglycerin (Nitroglycerin (Inpatient Use) 0.4 Mg Tab.Subl) 0.4 mg SUBLINGUAL Q5M PRN PRN Reason: CARDIAC/CHEST PAIN Ondansetron HCl (Ondansetron 4 Mg/2 Ml Vial) 4 mg IV Q8H PRN PRN PRN Reason: NAUSEA/VOMITING Oxycodone HCl (Oxycodone 5 Mg Tablet) 5 mg PO Q4H PRN PRN PRN Reason: Pain Score 4-5 Oxycodone HCl (Oxycodone 5 Mg Tablet) 10 mg PO Q4H PRN PRN PRN Reason: Pain Score 6-10 Pantoprazole Sodium (Pantoprazole Sodium 40 Mg Tablet) 40 mg PO DAILY [facility] Promethazine HCl (Promethazine 25 Mg/Ml Syringe) 25 mg IM Q6H PRN PRN PRN Reason: Breakthrough Nausea/Vomiting Sertraline HCl (Sertraline 50 Mg Tablet) 50 mg PO DAILY [facility] Sodium Chloride (0.9% Saline Lock 10 Ml Syringe) 10 - 40 ml IV UD PRN PRN Reason: SALINE FLUSH Warfarin Sodium (Warfarin 5 Mg Tablet) 5 mg PO DAILY@1700 [facility] Last Admin: 07/18/20 17:43 Dose: 5 mg Documented by: STROKE Vital Signs/Narrative: Vital Signs Temp Pulse Resp BP Pulse Ox 07/19/20 07:00 88 24 H 105/77 94 07/19/20 06:57 87 07/19/20 06:00 97.5 F L 86 23 H 100/68 96 07/19/20 05:00 92 22 H 102/63 95 07/19/20 04:00 98.8 F 81 23 H 108/80 93 Medical Necessity - Tobacco Use Smoking Status: Former smoker Assessment/Plan All Active Problems (This Medical Record has been edited. Action required.) Febrile illness, acute (Acute) Atrial fibrillation with RVR (Acute) Pulmonary embolism (Resolved) Hives (Resolved) Gallstones (Resolved) Encounter for blood transfusion (Resolved) Blood clot in vein (Resolved) Patient is a 59-year-old lady presented with abdominal pain, generalized weakness as well as subjective fever found to be in A. fib with RVR with leukocytosis and elevated lactic acid level with no obvious source of infection. Admitted to a monitored bed subsequent evaluation did reveal presence of acute cystitis antibiotics subsequently initiated 1. Sepsis (present on admission) ?Secondary to acute cystitis. Urinalysis obtained later during patient hospitalization came back positive for UTI subsequently started on Rocephin. Culture signs plan is to adjust antibiotic therapy based on culture results 2. Paroxysmal A. fib with RVR ?Patient started on Cardizem titrated to keep heart rate less than 100. Patient already on Coumadin with a therapeutic INR -The echo ordered was technically difficult due to patient being in A. fib with RVR. 3. History of pulmonary embolism ?Is on Coumadin with a therapeutic INR 4. Generalized osteoarthritis -pain meds as needed 5. Morbid obesity with BMI of 64.4 ?Weight loss advised 6. DVT prophylaxis ?Patient already on Coumadin 7. Runs of sustained VT ?Patient be monitored continuously on telemetry. Cardiac enzymes so far negative to date. Echo obtained on admission was reported to be technically difficult. Patient was however found to have pulmonary arterial systolic pressure of 55 mmHg 8. Suspected obstructive sleep apnea ?Patient did admit to having been diagnosed once with sleep apnea however has no CPAP. Instructed patient to follow-up with PCP to set up a repeat sleep study and for subsequent treatment to be initiated Inpatient E&M: [id number] Subs Hosp L3
[2020-07-19 08:20] LABS: Magnesium 1.9 mg/dL (1.6-2.6)
[2020-07-19] MEDS: Lisinopril 20 MG Tablet PO (08:48)
[2020-07-19] MEDS: Pantoprazole Sodium 40 MG Tablet PO (08:48)
[2020-07-19] MEDS: dilTIAZem CD 120 MG Capsule PO ×2 (08:48→21:30)
--- NOTE | 2020-07-19 17:44 | CON.PCM_ITS ---
Reason for Consult Date of Consultation: 07/19/20 Reason for Consultation: Ventricular tachycardia History of Present Illness: The patient is a 59 year old F has medical history is gone for previous PE on Coumadin who presented to the emergency department with generalized weakness. Patient symptoms started a week prior to her admission with abdominal pain. Patient has also noticed some loose stools for the past 2 days prior to admission. She also did experience aches as well as subjective fevers. Patient presented to the emergency department as a result of worsening symptoms. Patient was found to be in A. fib with RVR and Cardizem was started. Her heart rate improved and she has been transitioned to p.o. Cardizem. Initial echocardiogram was not ideal for evaluation of EF due to rapid ventricular response. There was some suspicion of depressed EF. Patient had long run of nonsustained ventricular tachycardia. She denies any symptoms from that. She denies any chest pain. Her potassium and magnesium were unremarkable. Covid was ruled out as well. Review of systems: All systems reviewed. All else is negative except that in HPI. [] Past Medical History Allergies/Adverse Reactions: Allergies enoxaparin [From Lovenox] Allergy (Severe, Verified 07/18/20 08:53) Rash & Itching green tea Allergy (Intermediate, Verified 07/18/20 08:53) Itching peaches Allergy (Severe, Uncoded 07/18/20 08:53) Unknown Home Medications: Ambulatory Orders Medication Instructions Recorded Circulation Vein Support PO 07/05/19 Fish Oil PO 07/05/19 Iron Pill PO 07/05/19 acetaminophen 325 mg tablet 650 mg PO BID PRN tab 07/05/19 calcium carb-magnesium carb PO 07/05/19 cholecalciferol (vitamin D3) 125 2,000 mcg PO DAILY 07/05/19 mcg (5,000 unit) capsule mecobalamin (vitamin B12) 1,000 mcg PO DAILY 07/05/19 warfarin 5 mg tablet 5 mg PO DAILY #90 tab 07/06/19 lisinopril 20 mg tablet 20 mg PO DAILY #90 tab 07/09/19 pantoprazole 40 mg tablet,delayed 40 mg PO DAILY #90 tab 04/08/20 release Past Medical History (Chronic Problems): Chronic Problems (This Medical Record has been edited. Action required.) GERD (gastroesophageal reflux disease) (Chronic) High blood pressure (Chronic) Carpal tunnel syndrome (Chronic) Back problem (Chronic) Arthritis (Chronic) Allergies (Chronic) - *Family History Maternal Family History: Family History (This Medical Record has been edited. Action required.) Mother Diabetes High cholesterol Father Diabetes Heart disease Hypertension Sister Diabetes High cholesterol Brother Diabetes Paternal Family History: Family History (This Medical Record has been edited. Action required.) Mother Diabetes High cholesterol Father Diabetes Heart disease Hypertension Sister Diabetes High cholesterol Brother Diabetes Smoking Status: Former smoker Objective: Vital Signs Temp Pulse Resp BP Pulse Ox 97.8 F 91 22 H 107/68 96 07/19/20 15:39 07/19/20 15:39 07/19/20 15:39 07/19/20 15:39 07/19/20 15:39 Oxygen Flow Rate (L/min) 2 Oxygen Delivery Method Room Air Weight: 328 lb 14.875 oz Body Mass Index (BMI) 60.1 Intake and Output for Last 24 Hours 07/17/20 07/18/20 07/19/20 23:59 23:59 23:59 Intake Total 2715.33 / 2730.33 1557.18 / 1557.18 Balance 2715.33 / 2730.33 1557.18 / 1557.18 General: Awake, Alert, Oriented x 3 HEENT: Atraumatic Oral: Moist Mucosa Lungs: Clear to auscultation Cardiovascular: Irregular Rhythm Abdomen: Obese Extremities: Bilateral Edema +2 Psych/Mental Status: Appropriate 07/18/20 22:56: Urine Color Gwen, Urine Clarity Turbid, Urine pH 5.0, Ur Specific [place] 1.025, Urine Protein 100 H, Urine Glucose (UA) Normal, Urine Ketones 5 H, Urine Occult Blood 250 H, Urine Nitrite Positive H, Urine Bilirubin 3 H, Urine Urobilinogen 8 H, Ur Leukocyte Esterase 500 H, Urine RBC 10-25 SEEN, Urine WBC >100 SEEN 07/19/20 05:40: WBC 15.0 H, RBC 4.62, Hgb 8.1 L, Hct 31.7 L, MCV 68.6 L, MCH 17.5 L, MCHC 25.6 L, Plt Count 266, MPV 10.6, Immature Gran % (Auto) 0.400, Neut % (Auto) 78.6 H, Lymph % (Auto) 11.0 L, [place] % (Auto) 9.2, Eos % (Auto) 0.5, Ba so % (Auto) 0.3, Absolute Neuts (auto) 11.8 H, Nucleated RBC % 0.3 07/19/20 05:40: PT 26.9 H, INR 2.5 07/19/20 05:40: Sodium 135 L, Potassium 4.0, Chloride 103, Carbon Dioxide 26.0, Anion Gap 6, BUN 28 H, Creatinine 1.14 H, Est GFR (MDRD) Af Amer 62, Est GFR (MD RD) Non-Af 51 L, BUN/Creatinine Ratio 24.6 H, Glucose 107 H, Calcium 8.3 L, Total Bilirubin 1.90 H 07/19/20 05:40: Magnesium 1.9 Rhythm: EKG: ECHO: Stress Test: Cardiac Cath: PCI: CT Surgery: Holter monitor: EPS: PPM: CXR: Chest CT Scan: Assessment/Plan 1. Ventricular tachycardia: Her electrolytes were unremarkable. We will repeat a 2D echo now that her heart rate is better controlled to see if she has depressed EF. We will add metoprolol and if patient's heart rate is depressed then we will wean off Cardizem and increase the metoprolol for heart rate control with the A. fib. Patient will probably need coronary angiography to rule out ischemic heart disease as a cause for her ventricular tachycardia especially if her EF is decreased as well. We will hold her Coumadin and check her INR tomorrow. When the INR is less than 2 please start the patient on heparin drip. Patient also has anemia that may need work-up as well. 2. Atrial fibrillation: As mentioned above we will repeat a 2D echo, add metoprolol and if the EF is low attempt to control the heart rate with metoprolol instead of diltiazem. Patient is already on Coumadin.
[2020-07-19] MEDS: Metoprolol Tartrate 25 MG Tablet PO (21:30)
[2020-07-20] VITALS (20 sets, daily range): BP systolic 103–132; BP diastolic 62–82; PULSE 83–106; RESP 16–18; TEMP 36.4–36.9; O2SAT 92–97
[2020-07-20 06:09] LABS: Absolute Neutrophil Count 5.5 X10^3/uL (2.0-7.7); Basophil# 0.04 X10^3/uL; Basophil% 0.5 % (0-1); Eosinophil# 0.18 X10^3/uL; Eosinophils% 2.2 % (0-5); Hematocrit 34.1 % (37-47); Hemoglobin 8.2 g/dL (12.0-15.0); Lymphocyte % 19.3 % (19-41); Mean Corpuscular Hgb 17.6 pg (27.0-32.0); Mean Platelet Vol. 10.7 fl (6.2-12.0); Monocyte# 0.99 X10^3/uL; Monocyte% 11.9 % (0-10); NRBC Flagged by Analyzer 0.7 % (0-5); Neutrophil # 5.45 X10^3/uL (2.7-7.7); Neutrophil % 65.7 % (47-70); POSITIVE MORPHOLOGY YES; Platelet Count 290 K/mm3 (150-450); RBC Distribution Width SD 61.4 fl (35.1-43.9); Red Blood Count 4.67 M/mm3 (4.2-5.4); White Blood Count 8.3 K/mm3 (4.4-11.0)
[2020-07-20 06:22] LABS: International Normalized Ratio 1.8; Prothrombin Time (Protime)PT. 20.6 SECONDS (11.7-14.9)
[2020-07-20 06:24] LABS: Differential Indicated SCAN CRITERIA MET
[2020-07-20 06:41] LABS: ALB/GLOB Ratio 0.6 RATIO (0.9-2.4); AST(SGOT) 28 U/L (15-37); Alanine Aminotransfer ALT/SGPT 28 U/L (13-56); Albumin, Serum 2.7 g/dL (3.2-5.0); Alkaline Phosphatase 51 U/L (45-117); Anion Gap 6 (5-15); BUN 32 mg/dL (7-18); BUN/Creat Ratio 31.7 RATIO (10-20); Calcium,Total 8.5 mg/dL (8.5-10.1); Chloride 104 mmol/L (98-107); Creatinine, Serum 1.01 mg/dL (0.55-1.02); EST Glomerular Filtration Rate 59 mL/min (>60); Est Glom Filt Rate - Afr Amer 72 mL/min (>60); Estimated Creatinine Clearance 46.26 ml/min; Globulin 4.2 g/dL (2.2-4.2); Glucose 111 mg/dL (74-106); Potassium 3.8 mmol/L (3.5-5.1); Protein, Total 6.9 g/dL (6.4-8.2); Sodium Level 134 mmol/L (136-145)
[2020-07-20 06:47] LABS: Magnesium 2.1 mg/dL (1.6-2.6)
--- NOTE | 2020-07-20 08:03 | PN_ITS ---
Patient Problems: Active and Suspected Problems (This Medical Record has been edited. Action required.) Febrile illness, acute (Acute) Atrial fibrillation with RVR (Acute) Subjective: Chief complaint: Follow-up after admission for acute cystitis, sepsis, A. fib with RVR and ventricular tachycardia. Patient seen and examined. No acute events overnight. Today, he is feeling little bit better, still having shortness of breath upon ambulation but improved. She has no more fever. Denied chest pain. Denied dizziness or lightheadedness. She has been in sinus rhythm, heart rate has been in the 80s to 100, afebrile, pulse ox is 96% on 2 L. - Physical Exam Vitals/I&O's: Vital Signs Temp Pulse Resp BP Pulse Ox 98.5 F 83 16 116/62 96 07/20/20 03:00 07/20/20 03:10 07/20/20 03:00 07/20/20 03:00 07/20/20 03:00 Oxygen Flow Rate (L/min) 2 Oxygen Delivery Method Nasal Cannula Weight: 328 lb 14.875 oz Body Mass Index (BMI) 60.1 Intake and Output for Last 24 Hours 07/18/20 07/19/20 07/20/20 23:59 23:59 23:59 Intake Total 2715.33 / 2730.33 / Balance 2715.33 / 2730.33 General: Alert, Oriented x3, Cooperative, No apparent distress HEENT: Atraumatic, PERRLA, EOMI, Normocephalic Oral: Moist Mucosa, No Gingival or Mucosal Lesions/ Ulcerations Neck: Supple, No JVD, Negative Carotid Bruits, Trachea Midline, Thyroid Normal Size and Texture Lungs: Clear to auscultation, No rhonchi, No wheeze, No rales, - - Diminished breath sounds bilateral, otherwise clear. Cardiovascular: Regular rate, Regular Rhythm, Normal S1, Normal S2, PMI Normal Abdomen: Bowel Sounds Present, Soft, Non Tender, Non-Distended, No Hepato-splenomegaly, Obese Extremities: No clubbing, No cyanosis, Edema - Trace edema. Skin: No rashes, No breakdown Lymphatic: No Cervical, Supraclavicular, or Inguinal Adenopathy Neurological: Cranial nerves II-XII grossly intact, Neuro grossly intact Psych/Mental Status: Normal Affect, Appropriate, Alert and oriented to time, place, person, mood and affect Microbiology Past 72 Hours 07/18/20 09:30 Mucosa - Nose SARS-CoV-2 Antigen (Rapid) - Final Laboratory Results 07/19/20 05:40: Magnesium 1.9 07/20/20 05:46: WBC 8.3, RBC 4.67, Hgb 8.2 L, Hct 34.1 L, MCV 73.0 L D, MCH 17.6 L, MCHC 24.0 L D, RDW Std Deviation 61.4 H, RDW Coeff of Claudia 24.0 H, Plt Count 290, MPV 10.7, Immature Gran % (Auto) 0.400, Neut % (Auto) 65.7, Lymph % (Auto) 19.3, [place] % (Auto) 11.9 H, Eos % (Auto) 2.2, Baso % (Auto) 0.5, Absolute Neuts (auto) 5.5, Absolute Lymphs (auto) 1.60, Nucleated RBC % 0.7 07/20/20 05:46: PT 20.6 H, INR 1.8 07/20/20 05:46: Sodium 134 L, Potassium 3.8, Chloride 104, Carbon Dioxide 24.0, Anion Gap 6, BUN 32 H, Creatinine 1.01, Estim Creat Clear Calc 46.26, Est GFR (MDRD) Af Amer 72, Est GFR (MDRD) Non-Af 59 L, BUN/Creatinine Ratio 31.7 H, Glucose 111 H, Calcium 8.5, Total Bilirubin 1.20 H, AST 28, ALT 28, Alkaline Phosphatase 51, Total Protein 6.9, Albumin 2.7 L, Globulin 4.2, Albumin/Globulin Ratio 0.6 L 07/20/20 05:46: Magnesium 2.1 Clinical Impression(s) from Imaging Studies Abdomen/Pelvis CT 07/18/20 09:19 IMPRESSION: No bowel obstruction or inflammation. Normal appendix. No urinary calculi. No hydronephrosis. Moderate hiatal hernia. Small fat-containing umbilical hernia. Small amount of ascites. Anasarca. Trace right pleural effusion with overlying atelectasis. Electronically Signed: Ralph Musa MD at 10:33 EST Tel , Service support , Chest X-Ray 07/18/20 09:19 IMPRESSION: Cardiomegaly with mild pulmonary vascular congestion. Electronically Signed: Ralph Musa MD at 10:17 EST Tel , Service support , Current Medications Acetaminophen (Acetaminophen 325 Mg Tablet) 650 mg PO Q6H PRN PRN PRN Reason: Pain Score 1-10/Temp > 100.7 F Last Admin: 07/19/20 19:46 Dose: 650 mg Documented by: Al Hydroxide/Mg Hydroxide (Mag Hydrox/Al Hydrox/Simeth 30 Ml Udc) 30 ml PO Q6H PRN PRN PRN Reason: Gastric Burning Albuterol Sulfate (Albuterol 2.5 Mg/3 Ml Vial.Neb.) 2.5 mg INHALATION Q2H PRN PRN PRN Reason: SOB/Wheezing Diltiazem HCl (Diltiazem Cd 120 Mg Capsule) 120 mg PO Q12 [facility] Last Admin: 07/19/20 21:30 Dose: 120 mg Documented by: Sodium Chloride () 250 mls @ 15 mls/hr IV .[id number] PRN PRN Reason: Saline Flush Sodium Chloride () 250 mls @ 15 mls/hr IV .[id number] PRN PRN Reason: Additional IVPB Infusion Ceftriaxone Sodium (Rocephin) 1 gm in 50 mls @ 100 mls/hr IV QHS [facility] Last Infusion: 07/19/20 22:00 Dose: Infused Documented by: Lisinopril (Lisinopril 20 Mg Tablet) 20 mg PO DAILY [facility] Last Admin: 07/19/20 08:48 Dose: 20 mg Documented by: Magnesium Hydroxide (Magnesium Hydroxide 30 Ml Udc) 30 ml PO DAILY PRN PRN PRN Reason: Constipation Melatonin (Melatonin 3 Mg Tablet) 3 mg PO QHS PRN PRN PRN Reason: INSOMNIA Metoprolol Tartrate (Metoprolol Tartrate 25 Mg Tablet) 25 mg PO BID [facility] Last Admin: 07/19/20 21:30 Dose: 25 mg Documented by: Nitroglycerin (Nitroglycerin (Inpatient Use) 0.4 Mg Tab.Subl) 0.4 mg SUBLINGUAL Q5M PRN PRN Reason: CARDIAC/CHEST PAIN Ondansetron HCl (Ondansetron 4 Mg/2 Ml Vial) 4 mg IV Q8H PRN PRN PRN Reason: NAUSEA/VOMITING Oxycodone HCl (Oxycodone 5 Mg Tablet) 5 mg PO Q4H PRN PRN PRN Reason: Pain Score 4-5 Oxycodone HCl (Oxycodone 5 Mg Tablet) 10 mg PO Q4H PRN PRN PRN Reason: Pain Score 6-10 Pantoprazole Sodium (Pantoprazole Sodium 40 Mg Tablet) 40 mg PO DAILY [facility] Last Admin: 07/19/20 08:48 Dose: 40 mg Documented by: Promethazine HCl (Promethazine 25 Mg/Ml Syringe) 25 mg IM Q6H PRN PRN PRN Reason: Breakthrough Nausea/Vomiting Sodium Chloride (0.9% Saline Lock 10 Ml Syringe) 10 - 40 ml IV UD PRN PRN Reason: SALINE FLUSH Warfarin Sodium (Warfarin 5 Mg Tablet) 5 mg PO DAILY@1700 [facility] Last Admin: 07/19/20 17:52 Dose: Not Given Documented by: Medical Necessity - Tobacco Use Smoking Status: Former smoker Assessment/Plan All Active Problems (This Medical Record has been edited. Action required.) Febrile illness, acute (Acute) Atrial fibrillation with RVR (Acute) This is a 59 years old female patient presented to the emergency room because of abdominal pain, weakness and fever, found to have sepsis secondary to acute cystitis, A. fib with RVR and she developed ventricular tachycardia. #1 acute cystitis:/Sepsis: She is on IV Rocephin. Blood cultures pending. Urine culture was not done. COVID-19 antigen came back negative. Vital signs are stable, afebrile. Plan to continue same treatment. #2 new onset paroxysmal A. fib with RVR: Currently, she is in sinus rhythm, rate is controlled. She is on p.o. Cardizem and metoprolol for rate control. She is on Coumadin for anticoagulation, INR is 1.8. 2D echocardiogram revealed dilated right ventricle, unable to assess ejection fraction. Cardiology consulted, plan for cardiac catheterization today. #3 nonsustained wide-complex tachycardia/VT: EKG reviewed. Serum electrolytes are unremarkable. She has been on metoprolol and Cardizem. Cardiology consulted and plan for cardiac catheterization today. #4 anemia: Likely to be chronic. Patient denied any active bleeding. It is microcytic anemia, iron deficiency anemia. Iron studies reviewed. Stool for occult blood ordered. Probably patient will need follow-up with GI as outpatient. #5 history of PE: On Coumadin, INR is 1.8. Currently, Coumadin on hold. #6 GERD: Continue PPI. #7 DVT prophylaxis: INR is 1.8. This note was generated with [employer] dictation software. It may contain incorrect words, spelling, and punctuation that were not noted in checking the note before signing. Inpatient E&M: 67793 Subs Hosp L2
[2020-07-20 08:33] LABS: Ferritin 26 ng/mL (8-252); Iron 40 ug/dL (50-170); Iron Binding Capacity,Total 511 ug/dL (250-450); PERCENT IRON SATURATION 7.8 % (15.0-55.0)
--- NOTE | 2020-07-20 08:33 | CASEMGMT ---
[facility], the following are in-network tertiary facilities: [facility], [facility], [facility], [facility], [facility], [facility], [facility], and . Scott SELF CM
--- NOTE | 2020-07-20 08:43 | PCM.PN.CARD ---
Subjectve: The patient is awake and alert. She denies ongoing chest discomfort at this time. She denies any sensation of palpitations or tachycardia dysrhythmias. She states her main concern that brought her to the hospital was her nausea, emesis, and diarrhea. Objective: Vital Signs Temp Pulse Resp BP Pulse Ox 98.5 F 85 16 116/62 96 07/20/20 03:00 07/20/20 06:59 07/20/20 03:00 07/20/20 03:00 07/20/20 03:00 Oxygen Flow Rate (L/min) 2 Oxygen Delivery Method Nasal Cannula Weight: 328 lb 14.875 oz Body Mass Index (BMI) 60.1 Intake and Output for Last 24 Hours 07/18/20 07/19/20 07/20/20 23:59 23:59 23:59 Intake Total 2715.33 / 2730.33 Balance 2715.33 / 2730.33 General: Awake, Alert, Oriented x 3, Cooperative, No Acute Distress, Obese HEENT: Atraumatic, Normocephalic, PERRL, EOMI, Sclera Non Icteric Neck: Supple, Good ROM, No JVD Lungs: Clear to auscultation Cardiovascular: Irregular Rhythm, Normal S1, Normal S2 Abdomen: Bowel Sounds Present, Soft Extremities: No edema Neurological: No Focal Motor or Sensory Deficit Psych/Mental Status: Appropriate 07/20/20 05:46: WBC 8.3, RBC 4.67, Hgb 8.2 L, Hct 34.1 L, MCV 73.0 L D, MCH 17.6 L, MCHC 24.0 L D, Plt Count 290, MPV 10.7, Immature Gran % (Auto) 0.400, Neut % (Auto) 65.7, Lymph % (Auto) 19.3, [place] % (Auto) 11.9 H, Eos % (Auto) 2.2, Baso % (Auto) 0.5, Absolute Neuts (auto) 5.5, Nucleated RBC % 0.7 07/20/20 05:46: PT 20.6 H, INR 1.8 07/20/20 05:46: Sodium 134 L, Potassium 3.8, Chloride 104, Carbon Dioxide 24.0, Anion Gap 6, BUN 32 H, Creatinine 1.01, Est GFR (MDRD) Af Amer 72, Est GFR (MDRD) Non-Af 59 L, BUN/Creatinine Ratio 31.7 H, Glucose 111 H, Calcium 8.5, Total Bilirubin 1.20 H 07/20/20 05:46: Magnesium 2.1 07/20/20 05:46: Iron 40 L, TIBC 511 H, Iron Saturation 7.8 L, Ferritin 26 Rhythm: Atrial fibrillation; nonsustained wide-complex tachycardia concerning for nonsustained VT (approximately 7 beats) EKG: Atrial fibrillation ECHO: Interpretation Summary Technically limited study due to a fib with RVR. Unable to comment on LVEF. Please repeat echo when heart rate is bettter controlled. Mild (1+) mitral valve insufficiency. Mildly dilated right ventricle. Pulmonary artery systolic pressure is 55 mmHg. The study was technically limited. Contrast injection was performed. Medical Necessity - Tobacco Use Smoking Status: Former smoker Assessment/Plan 1. Atrial fibrillation The patient presented with atrial fibrillation. The etiology may be multifactorial secondary to a combination of her age, hypertension, pulmonary disease, ongoing infectious related etiologies, etc. She is continuing to be monitored. She is continuing medical therapy for rate control. She has been evaluated by Dr. Martinez of cardiology and cardiovascular consultation. He is recommended continued medical therapy and further evaluation of her left ventricular wall motion systolic function with a follow-up transthoracic echocardiogram (please see previous report) and further evaluation based upon her cardiac dysrhythmia including her wide-complex tachycardia with diagnostic cardiac catheterization. 2. Nonsustained wide-complex tachycardia/nonsustained VT The patient has any history of cardiac dysrhythmia in the past that she is aware of. She has had endings of her underlying atrial dysrhythmia and nonsustained wide-complex tachycardia thought compatible with nonsustained VT. She has been undergoing noninvasive evaluation. She has been on medical therapy with beta-blockers. She has been recommended, as noted above, for further evaluation with diagnostic cardiac catheterization. 3. Pulmonary hypertension The patient has a history of pulmonary hypertension. This may be secondary to concerns of her underlying pulmonary condition with her history of pulmonary emboli, etc. At the present time she will need continued medical therapy and support. 4. Thromboembolic disease/PE The patient has a history of pulmonary embolism. She has been on anticoagulant therapy. This was placed on hold in anticipation of the need for diagnostic cardiac catheterization. Her INR has declined. Following further cardiac evaluation she will need to return to her anticoagulant therapy as deemed appropriate. 5. GERD The patient states she has GERD as well as potentially a peptic ulcer. She has been on medical therapy. 6. Anemia The patient states she has a history of chronic anemia. She states it has been attributed to her underlying gastrointestinal disease process. Her H&H was reported. It did not have any significant change/decline. This will need to be followed during her evaluation and care. 7. Nausea/emesis/diarrhea The patient presented with a variety of symptoms with respect of abdominal discomfort, nausea, emesis, diarrhea. She underwent evaluation for viral illnesses included COVID-19 x2 which was reported as negative. She will need continued valuation care per internal medicine. 8. Abnormal UA The patient does have an abnormal UA. It appears she has been placed on antibiotic therapy. Comment: The above was discussed reviewed with the patient including the diagnostic cardiac catheterization procedure. The risk and benefits were discussed. The patient was agreeable to this approach. The patient's case has been previously discussed with Dr. Martinez. This note was generated using a voice recognition system and there may be incorrect words, spelling or punctuation that were not noted when reviewing the office note prior to saving. Procedure Criteria Procedure Type: Elective COVID Risk Discussion: The surgeon/proceduralist and patient have discussed in detail the risk of exposure to and/or potential harm posed by the COVID-19 virus with having a surgery/procedure at this time versus the risk of delaying the surgery/procedure. It is not possible to know either the risk of delaying the surgery or procedure or chance of getting an infection with perfect accuracy, but a joint decision was made between the patient and the surgeon/proceduralist to proceed at this time with the scheduled surgery/procedure as indicated on the consent form.
[2020-07-20] MEDS: TICAGRELOR 90 MG TABLET 180 MG PO (09:09)
[2020-07-20] MEDS: Aspirin 325 MG Tablet PO (09:09)
[2020-07-20] MEDS: dilTIAZem CD 120 MG Capsule PO ×2 (09:10→21:36)
[2020-07-20] MEDS: 0.9% Normal Saline 1,000 ML 15 ML IV (09:10)
[2020-07-20] MEDS: Metoprolol Tartrate 25 MG Tablet PO (09:10)
[2020-07-20] MEDS: 0.9% Saline Lock 10 ML Syringe IV ×2 (09:12→21:37)
[2020-07-20] MEDS: Lisinopril 20 MG Tablet PO (09:14)
--- NOTE | 2020-07-20 10:39 | CASEMGMT ---
RN CM Assessment Note Introduced role of CM to patient in room. Demographics, PCP verified. Patient states she is generally independent with ADL's and most care needs @ home. Her daughter assists with laundry and does most cooking. Patient does not have any concerns re: returning home. Presentation: fever, generalized weakness, loose stools. Diagnosis: acute cystitis, sepsis and is on IV Rocephin. New onset paroxysmal A.Fib with RVR. PCP: Dr. Husain Specialists: Dr. Szymanski. Denies specialists prior. Insurance: Diana FRIAS Preferred Pharmacy: [facility] Prescription Benefit: yes LNOK: DaughterAlesia Living Arrangements: Lives in one story home with her daughter. Daughter assists with laundry, cooking. Pt states she is independent with ADL's. Transportation: drives DME: walker, cane, shower chair HHC: none SNF: [facility] a few years ago Patient DC Goals: home DC Plan: anticipate home CM available for discharge planning coordination. Contact CM for any concerns/needs that may arise. Keira TIM RN ACM
--- NOTE | 2020-07-20 11:06 | NURSING ---
Report called to Tiarra SELF matlab developer
--- NOTE | 2020-07-20 12:54 | CL.D_ITS ---
Patient Name: NICOLE DUMONT Study Date: 07/20/2020 Performing: Joe Szymanski MD Ht: 62 inches 157.48 cm : 1960 Wt: 328.4 lbs 148.78 kg Age: 59 Gender: female BSA: 2.36 PROCEDURE(S) PERFORMED [id number]-PFW/COR/LV CLINICAL PROFILE AND INDICATIONS Indications: Cardiac Arrythmia Heart Failure: None Stress/Imaging Stress/Image Study Performed: No Angina Classification Anginal Classification w/in 2 Weeks: Anginal Equivalent Dyspnea CAD Presentations: Other: atrial fibrillation / ventricular tachycardia CONCLUSIONS Elevated Left Ventricular End Diastolic Pressure Normal LV size, wall motion,and systolic function LVEF: by LV gram 55 % Normal coronary arteries RECOMMENDATIONS Risk factor modification Medical therapy DESCRIPTION OF PROCEDURE The patient arrived to the procedure lab. The risks and benefits of the procedure as well as a full d escription of our services here and current unavailability of surgical backup were fully explained to the patient and/or their significant other prior to the catheterization. The Timeout was completed, verifying the correct patient and procedure. The patient's procedural site was prepped and draped in the usual fashion. Local anesthetic was given subcutaneously to right radial region with Lidocaine 2% . Using a modified Seldinger technique, arterial access was obtained via the right radial artery, a 6 Fr sheath was inserted. Left Coronary Artery selective angiography was performed in multiple views u sing a 5 Fr. 4.0 [place] catheter. Right Coronary Artery selective angiography was then performed in mu ltiple views using a 5 Fr. 4.0 [place] catheter. Left Coronary Artery selective angiography was perform ed in multiple views using a 5 Fr. JR 4 catheter. Left Ventriculography was performed in ALFREDO projection using a 5 Fr. [place] catheter. LV to AO pullback pressures were then recorded.The art erial sheath was pulled and a TR Band was applied for hemostasis-16 cc air CORONARY ANGIOGRAPHY DOMINANCE: Right Dominant LEFT HEART ASSESSMENT Left Ventricular Ejection Fraction: by LV Gram 55 % Normal LV wall motion Elevated Left Ventricular End Diastolic Pressure LVEDP: 24 mmHg LEFT MAIN: Angiographically normal LEFT ANTERIOR DESCENDING ARTERY: Angiographically normal CIRCUMFLEX ARTERY: Angiographically normal RAMUS: Angiographically normal RIGHT CORONARY ARTERY: Angiographically normal AORTIC ROOT: Angiographically normal COMPLICATIONS No Complications PROCEDURE MEDICATIONS Versed 1 mg IV Fentanyl 50 mcg IV Versed 1 mg IV Fentanyl 50 mcg IV Oxygen: 2 L/min via nasal cannula Heparin diluted in 23cc Heparinized saline. Patient given 10cc IA of this solution. 07/20/2020 12:13: 22 Verapamil 2.5mg, Ntg 100mcgs, 2000 units of Heparin diluted in 23cc Heparinized saline. Patient give n 10cc IA of this solution. 07/20/2020 12:13:22 SUMMARY OF HEMODYNAMIC DATA Time AIR REST ECG 11:54:32 AO 113/80 (97) SA 12:23:46 LV 119/2, 27 12:34:41 LV 121/0, 24 12:34:48 LV 100/14, 24 12:35:33 LVp 106/15, 24 12:35:40 AOp 108/75 (90) 12:35:46 Signed By Joe Szymanski MD On 07/20/2020 12:53:29 Joe Szymanski MD
[2020-07-20] MEDS: 0.9% Normal Saline 1,000 ML 75 ML IV (13:18)
[2020-07-20] MEDS: Pantoprazole Sodium 40 MG Tablet PO (13:19)
[2020-07-20 14:04] LABS: Pathologist Review Reviewed
[2020-07-20] MEDS: oxyCODONE 5 MG Tablet PO (16:53)
[2020-07-20] MEDS: Ceftriaxone 1 GM/50 ML BAG IV (21:36)
[2020-07-20] MEDS: Metoprolol Tartrate 50 MG Tablet PO (21:36)
[2020-07-21] VITALS (8 sets, daily range): BP systolic 106–124; BP diastolic 68–80; PULSE 65–100; RESP 18–20; TEMP 36.4–36.7; O2SAT 93–98
[2020-07-21] MEDS: Albuterol 2.5 MG/3 ML VIAL.NEB. INHALATION (00:19)
[2020-07-21 07:21] LABS: Hematocrit 33.4 % (37-47); Hemoglobin 8.5 g/dL (12.0-15.0)
[2020-07-21 07:30] LABS: International Normalized Ratio 2.1; Prothrombin Time (Protime)PT. 23.4 SECONDS (11.7-14.9)
[2020-07-21 07:33] LABS: Anion Gap 7 (5-15); BUN 25 mg/dL (7-18); Calcium,Total 8.7 mg/dL (8.5-10.1); Chloride 104 mmol/L (98-107); Creatinine, Serum 0.74 mg/dL (0.55-1.02); EST Glomerular Filtration Rate 85 mL/min (>60); Est Glom Filt Rate - Afr Amer 103 mL/min (>60); Estimated Creatinine Clearance 63.14 ml/min; Glucose 103 mg/dL (74-106); Potassium 3.9 mmol/L (3.5-5.1); Sodium Level 135 mmol/L (136-145)
[2020-07-21] MEDS: dilTIAZem CD 120 MG Capsule PO (07:57)
[2020-07-21] MEDS: Pantoprazole Sodium 40 MG Tablet PO (07:57)
[2020-07-21] MEDS: Lisinopril 20 MG Tablet PO (07:57)
[2020-07-21] MEDS: Metoprolol Tartrate 50 MG Tablet PO (07:57)
--- NOTE | 2020-07-21 09:32 | DCINST_ITS ---
- Discharge Diagnoses Current Active Problems: Current Active and Chronic Problems (This Medical Record has been edited. Action required.) Febrile illness, acute (Acute) Atrial fibrillation with RVR (Acute) Pulmonary embolism (Chronic) 2007 GERD (gastroesophageal reflux disease) (Chronic) High blood pressure (Chronic) Carpal tunnel syndrome (Chronic) Arthritis (Chronic) Allergies (Chronic) You will use the following diet at home:: Cardiac Your food should be the consistency of: Regular Discharge Activity: Return to Normal Activity Weight Bearing Status: Weight bearing as tolerated Call your doctor if you observe: Fever of 101 or Higher, Shortness of breath, Dizziness, Fainting spells, Chest pain, Increased palpitations (irregular heartbeat), Uncontrolled pain Allergies/Adverse Reactions: Allergies enoxaparin [From Lovenox] Allergy (Severe, Verified 07/18/20 08:53) Rash & Itching green tea Allergy (Intermediate, Verified 07/18/20 08:53) Itching peaches Allergy (Severe, Uncoded 07/18/20 08:53) Unknown Medications to take at Discharge Circulation Vein Support PO 07/05/19 Fish Oil PO 07/05/19 Iron Pill PO 07/05/19 acetaminophen 325 mg tablet 650 mg PO BID PRN tab 07/05/19 calcium carb-magnesium carb PO 07/05/19 cholecalciferol (vitamin D3) 125 mcg (5,000 unit) capsule 2,000 mcg PO DAILY 07/05/19 mecobalamin (vitamin B12) 1,000 mcg PO DAILY 07/05/19 warfarin 5 mg tablet 5 mg PO DAILY #90 tab 07/06/19 lisinopril 20 mg tablet 20 mg PO DAILY #90 tab 07/09/19 pantoprazole 40 mg tablet,delayed release 40 mg PO DAILY #90 tab 04/08/20 Cephalexin [Keflex] 500 mg PO Q8 #6 cap 07/21/20 Diltiazem CD [Cardizem CD] 120 mg PO DAILY #30 cap 07/21/20 Metoprolol Tartrate [Lopressor (beta sowmya)] 50 mg PO BID #90 tab 07/21/20 The following prescriptions were given: Diltiazem CD [Cardizem CD] 120 mg PO DAILY #30 cap Transmission Status: [id number] Cephalexin [Keflex] 500 mg PO Q8 #6 cap Transmission Status: Pending to [id number] Metoprolol Tartrate [Lopressor (beta sowmya)] 50 mg PO BID #90 tab Transmission Status: Pending to [id number] Primary Care Physician: Emily Husain MD [Primary Care Provider] - Please follow up with your Primary Care Physician in: 1 week. Test Results: Test results from this visit will be discussed in further detail at your follow- up appointment, if applicable. Please Follow Up With: Joe Szymanski MD When: 2-3 weeks.
--- NOTE | 2020-07-21 10:07 | PCM.DC.SUM ---
Discharge Date and Diagnosis - Problem List Patient Problems: Active and Suspected Problems (This Medical Record has been edited. Action required.) Febrile illness, acute (Acute) Atrial fibrillation with RVR (Acute) Date of Admission: 07/18/20 Date of Discharge: 07/21/20 - Primary Discharge Diagnosis Acute Problems: Active Problems (This Medical Record has been edited. Action required.) #1 acute cystitis/sepsis. #2 new onset paroxysmal atrial fibrillation. #3 nonsustained wide-complex tachycardia/VT. #4 chronic anemia. - Secondary Discharge Diagnosis Chronic Problems: Chronic Problems (This Medical Record has been edited. Action required.) Pulmonary embolism (Chronic) 2007 GERD (gastroesophageal reflux disease) (Chronic) High blood pressure (Chronic) Carpal tunnel syndrome (Chronic) Arthritis (Chronic) Allergies (Chronic) Hospital Course and Treatment Imaging Results: Clinical Impression(s) from Imaging Studies Abdomen/Pelvis CT 07/18/20 09:19 IMPRESSION: No bowel obstruction or inflammation. Normal appendix. No urinary calculi. No hydronephrosis. Moderate hiatal hernia. Small fat-containing umbilical hernia. Small amount of ascites. Anasarca. Trace right pleural effusion with overlying atelectasis. Electronically Signed: Ralph Musa MD at 10:33 EST Tel , Service support , Chest X-Ray 07/18/20 09:19 IMPRESSION: Cardiomegaly with mild pulmonary vascular congestion. Electronically Signed: Ralph Musa MD at 10:17 EST Tel , Service support , Dr. Szymanski, cardiology. Operations: None Procedures: 2-D Echocardiogram, Cardiac catheterization, EKG Summary of Care Provided: Patient seen and examined on the day of discharge and appeared to be stable to be discharged home. She is feeling better, has no more complaints. Overnight, telemetry revealed normal sinus rhythm, heart rate is controlled. Other vital signs are stable. #1 acute cystitis:/Sepsis: Treated with IV Rocephin. There was no urine culture done upon admission. Blood culture showed no growth in 48 hours. She has been afebrile, no leukocytosis. COVID-19 antigen came back negative. Patient was discharged on Keflex 3 times daily for 2 days to complete total of 5 days of treatment. #2 new onset paroxysmal A. fib with RVR: Initially, she received IV Cardizem and was started on metoprolol. IV Cardizem drip was titrated down and she was started on p.o. Cardizem as well as metoprolol. She was continued on Coumadin for anticoagulation. 2D echocardiogram revealed dilated right ventricle, ejection fraction was 55%. Patient discharged home on p.o. Cardizem and metoprolol for rate control, Coumadin for anticoagulation. #3 nonsustained wide-complex tachycardia/VT: Serum electrolytes were unremarkable. She was started on metoprolol and Cardizem. Cardiology consulted and patient underwent cardiac catheterization she has been on metoprolol and Cardizem. Cardiology consulted and plan for cardiac catheterization that revealed angiographically normal coronary arteries without evidence of significant lesions. Overnight, patient remained in sinus rhythm and heart rate has been controlled. #4 chronic anemia: Patient had a history of peptic ulcer disease, has been on iron supplement and PPI. She reported dark stool but she has been on iron supplement. Denied hematemesis or hematochezia. Hemoglobin and hematocrit remained stable at her baseline. Recommended follow-up with PCP and patient will probably need to refer to GI as outpatient. #5 history of PE: Continued on Coumadin, discharge INR was 2.1. #6 GERD/peptic ulcer disease: Continued on PPI. Patient discharged home in a stable medical condition, discharged on Keflex to complete 5 days of treatment for acute cystitis, started on p.o. Cardizem and metoprolol for rate control, continued on Coumadin for anticoagulation, recommended follow-up with PCP in 1 week and patient will need follow-up with GI as outpatient, recommended follow-up with cardiology in 2 to 3 weeks. This note was generated with Ale[employer] dictation software. It may contain incorrect words, spelling, and punctuation that were not noted in checking the note before signing. Patient Problems: Active and Suspected Problems (This Medical Record has been edited. Action required.) Febrile illness, acute (Acute) Atrial fibrillation with RVR (Acute) - Physical Exam Vitals/I&O's: Vital Signs Temp Pulse Resp BP Pulse Ox 98.0 F 95 18 106/68 93 02/16/21 03:31 07/21/20 07:57 07/21/20 03:31 07/21/20 07:57 07/21/20 03:31 Oxygen Flow Rate (L/min) 2 Oxygen Delivery Method Room Air Weight: 328 lb 14.875 oz Body Mass Index (BMI) 60.1 Intake and Output for Last 24 Hours 07/19/20 07/20/20 07/21/20 23:59 23:59 23:59 Intake Total 1044.75 / 1044.75 120 / 120 Output Total 900 / 900 Balance 144.75 / 144.75 120 / 120 General: Alert, Oriented x3, Cooperative, No apparent distress HEENT: Atraumatic, PERRLA, EOMI, Normocephalic Oral: Moist Mucosa, No Gingival or Mucosal Lesions/ Ulcerations Neck: Supple, No JVD, Negative Carotid Bruits, Trachea Midline, Thyroid Normal Size and Texture Lungs: Clear to auscultation, No rhonchi, No wheeze, No rales, Diminished Cardiovascular: Regular rate, Regular Rhythm, Normal S1, Normal S2, PMI Normal Abdomen: Bowel Sounds Present, Soft, Non Tender, Non-Distended, No Hepato-splenomegaly, Obese Extremities: No clubbing, No cyanosis, Edema Skin: No rashes, No breakdown Lymphatic: No Cervical, Supraclavicular, or Inguinal Adenopathy Neurological: Cranial nerves II-XII grossly intact, Neuro grossly intact Psych/Mental Status: Normal Affect, Appropriate Microbiology Past 72 Hours 07/18/20 09:30 Blood Culture (Wb) - Right Wrist Blood Culture - Preliminary No growth in 48 hours. 07/18/20 09:30 Mucosa - Nose SARS-CoV-2 Antigen (Rapid) - Final Laboratory Results 07/18/20 09:30: Diff Path Review Reviewed 07/21/20 06:10: Hgb 8.5 L, Hct 33.4 L 07/21/20 06:10: Sodium 135 L, Potassium 3.9, Chloride 104, Carbon Dioxide 24.0, Anion Gap 7, BUN 25 H, Creatinine 0.74, Estim Creat Clear Calc 63.14, Est GFR (MDRD) Af Amer 103, Est GFR (MDRD) Non-Af 85, BUN/Creatinine Ratio 34.0 H, Glucose 103, Calcium 8.7 07/21/20 06:10: PT 23.4 H, INR 2.1 Current Medications Acetaminophen (Acetaminophen 325 Mg Tablet) 650 mg PO Q6H PRN PRN PRN Reason: Pain Score 1-10/Temp > 100.7 F Last Admin: 07/19/20 19:46 Dose: 650 mg Documented by: Al Hydroxide/Mg Hydroxide (Mag Hydrox/Al Hydrox/Simeth 30 Ml Udc) 30 ml PO Q6H PRN PRN PRN Reason: Gastric Burning Albuterol Sulfate (Albuterol 2.5 Mg/3 Ml Vial.Neb.) 2.5 mg INHALATION Q2H PRN PRN PRN Reason: SOB/Wheezing Last Admin: 07/21/20 00:19 Dose: 2.5 mg Documented by: Diltiazem HCl (Diltiazem Cd 120 Mg Capsule) 120 mg PO Q12 [facility] Last Admin: 07/21/20 07:57 Dose: 120 mg Documented by: Sodium Chloride () 250 mls @ 15 mls/hr IV .[id number] PRN PRN Reason: Saline Flush Sodium Chloride () 250 mls @ 15 mls/hr IV .[id number] PRN PRN Reason: Additional IVPB Infusion Ceftriaxone Sodium (Rocephin) 1 gm in 50 mls @ 100 mls/hr IV QHS [facility] Last Infusion: 07/20/20 21:56 Dose: Infused Documented by: Sodium Chloride () 1,000 mls @ 15 mls/hr IV .Q48H [facility] Last Infusion: 07/20/20 17:30 Dose: Infused Documented by: Lisinopril (Lisinopril 20 Mg Tablet) 20 mg PO DAILY [facility] Last Admin: 07/21/20 07:57 Dose: 20 mg Documented by: Magnesium Hydroxide (Magnesium Hydroxide 30 Ml Udc) 30 ml PO DAILY PRN PRN PRN Reason: Constipation Melatonin (Melatonin 3 Mg Tablet) 3 mg PO QHS PRN PRN PRN Reason: INSOMNIA Metoprolol Tartrate (Metoprolol Tartrate 50 Mg Tablet) 50 mg PO BID [facility] Last Admin: 07/21/20 07:57 Dose: 50 mg Documented by: Nitroglycerin (Nitroglycerin (Inpatient Use) 0.4 Mg Tab.Subl) 0.4 mg SUBLINGUAL Q5M PRN PRN Reason: CARDIAC/CHEST PAIN Ondansetron HCl (Ondansetron 4 Mg/2 Ml Vial) 4 mg IV Q8H PRN PRN PRN Reason: NAUSEA/VOMITING Oxycodone HCl (Oxycodone 5 Mg Tablet) 5 mg PO Q4H PRN PRN PRN Reason: Pain Score 4-5 Last Admin: 07/20/20 16:53 Dose: 5 mg Documented by: Oxycodone HCl (Oxycodone 5 Mg Tablet) 10 mg PO Q4H PRN PRN PRN Reason: Pain Score 6-10 Pantoprazole Sodium (Pantoprazole Sodium 40 Mg Tablet) 40 mg PO DAILY [facility] Last Admin: 07/21/20 07:57 Dose: 40 mg Documented by: Promethazine HCl (Promethazine 25 Mg/Ml Syringe) 25 mg IM Q6H PRN PRN PRN Reason: Breakthrough Nausea/Vomiting Sodium Chloride (0.9% Saline Lock 10 Ml Syringe) 10 - 40 ml IV UD PRN PRN Reason: SALINE FLUSH Last Admin: 07/20/20 21:37 Dose: 20 ml Documented by: Warfarin Sodium (Warfarin 5 Mg Tablet) 5 mg PO DAILY@1700 [facility] Last Admin: 07/20/20 16:54 Dose: 5 mg Documented by: Discharge Activity: Return to Normal Activity Weight Bearing Status: Weight bearing as tolerated Call your doctor if you observe: Fever of 101 or Higher, Shortness of breath, Dizziness, Fainting spells, Chest pain, Increased palpitations (irregular heartbeat), Uncontrolled pain Home Medications: Medications to take at Discharge Circulation Vein Support PO 07/05/19 Fish Oil PO 07/05/19 Iron Pill PO 07/05/19 acetaminophen 325 mg tablet 650 mg PO BID PRN tab 07/05/19 calcium carb-magnesium carb PO 07/05/19 cholecalciferol (vitamin D3) 125 mcg (5,000 unit) capsule 2,000 mcg PO DAILY 07/05/19 mecobalamin (vitamin B12) 1,000 mcg PO DAILY 07/05/19 warfarin 5 mg tablet 5 mg PO DAILY #90 tab 07/06/19 lisinopril 20 mg tablet 20 mg PO DAILY #90 tab 07/09/19 pantoprazole 40 mg tablet,delayed release 40 mg PO DAILY #90 tab 04/08/20 Cephalexin [Keflex] 500 mg PO Q8 #6 cap 07/21/20 Diltiazem CD [Cardizem CD] 120 mg PO DAILY #30 cap 07/21/20 Metoprolol Tartrate [Lopressor (beta sowmya)] 50 mg PO BID #90 tab 07/21/20 Following Prescriptions Were Given to Patient: Diltiazem CD [Cardizem CD] 120 mg PO DAILY #30 cap [facility] Cephalexin [Keflex] 500 mg PO Q8 #6 cap [facility] Metoprolol Tartrate [Lopressor (beta sowmya)] 50 mg PO BID #90 tab Transmission Status: [id number] Primary Care Physician: Emily Husain MD [Primary Care Provider] - Please follow up with your Primary Care Physician in: 1 week. Please Follow Up With: Joe Szymanski MD When: 2-3 weeks. Disposition: Home Minutes spent on discharge:: 33 Patient Condition:: Stable Medical Necessity - Tobacco Use Smoking Status: Former smoker Meaningful Use Info Meaningful Use Diagnoses (Choose all that apply): None applicable Inpatient E&M: 25965 Disch Hosp
[2020-07-21] MEDS: oxyCODONE 5 MG Tablet PO (11:04)
--- NOTE | 2020-07-21 11:12 | PHA.DC.MC ---
Pharmacy Service has performed discharge medication reconciliation and counseling for this patient. 1. CEPHALEXIN 500MG PO Q8H X 2 DAYS 2. DILTIAZEM CD 120MG PO DAILY 3. METOPROLOL TARTRATE 50MG PO BID The patient's discharge medication list was reviewed for discrepancies and discrepancies were resolved. Home Medications Circulation Vein Support PO 07/05/19 Fish Oil PO 07/05/19 Iron Pill PO 07/05/19 acetaminophen 325 mg tablet 650 mg PO BID PRN tab 07/05/19 calcium carb-magnesium carb PO 07/05/19 cholecalciferol (vitamin D3) 125 mcg (5,000 unit) capsule 2,000 mcg PO DAILY 07/05/19 mecobalamin (vitamin B12) 1,000 mcg PO DAILY 07/05/19 warfarin 5 mg tablet 5 mg PO DAILY #90 tab 07/06/19 lisinopril 20 mg tablet 20 mg PO DAILY #90 tab 07/09/19 pantoprazole 40 mg tablet,delayed release 40 mg PO DAILY #90 tab 04/08/20 Cephalexin [Keflex] 500 mg PO Q8 #6 cap 07/21/20 Diltiazem CD [Cardizem CD] 120 mg PO DAILY #30 cap 07/21/20 Metoprolol Tartrate [Lopressor (beta sowmya)] 50 mg PO BID #90 tab 07/21/20 The patient was counseled on the following discharge medications and changes in medications for homegoing were reviewed. The Reason for Use, instructions for use, and potential side effects were reviewed for all new medications. The patient's questions regarding all of their medications were answered. The patient was able to verbally demonstrate an understanding of their discharge medications. Patient counseled by student dean, Alyssa.
--- NOTE | 2020-07-21 13:38 | PN.CARD_ITS ---
Subjectve: The patient states that overall she appears to be doing well this day with no acute concerns. Objective: Vital Signs Temp Pulse Resp BP Pulse Ox 98.0 F 65 18 106/68 98 07/21/20 09:31 07/21/20 09:31 07/21/20 09:31 07/21/20 09:31 07/21/20 09:31 Oxygen Flow Rate (L/min) 2 Oxygen Delivery Method Room Air Weight: 328 lb 14.875 oz Body Mass Index (BMI) 60.1 Intake and Output for Last 24 Hours 07/19/20 07/20/20 07/21/20 23:59 23:59 23:59 Intake Total 1044.75 / 1044.75 600 / 600 Output Total 900 / 900 Balance 144.75 / 144.75 600 / 600 General: Awake, Alert, Oriented x 3, Cooperative, No Acute Distress, Obese HEENT: Atraumatic, Normocephalic, PERRL, EOMI, Sclera Non Icteric Neck: Supple, Good ROM Lungs: Diminished José Bases Cardiovascular: Irregular Rhythm, Normal S1, Normal S2 Vascular: Normal Radial Pulses Abdomen: Bowel Sounds Present, Soft Extremities: No edema Neurological: No Focal Motor or Sensory Deficit Psych/Mental Status: Appropriate 07/21/20 06:10: Hgb 8.5 L, Hct 33.4 L 07/21/20 06:10: Sodium 135 L, Potassium 3.9, Chloride 104, Carbon Dioxide 24.0, Anion Gap 7, BUN 25 H, Creatinine 0.74, Est GFR (MDRD) Af Amer 103, Est GFR (MDRD) Non-Af 85, BUN/Creatinine Ratio 34.0 H, Glucose 103, Calcium 8.7 07/21/20 06:10: PT 23.4 H, INR 2.1 Rhythm: Atrial fibrillation Medical Necessity - Tobacco Use Smoking Status: Former smoker Assessment/Plan 1. Atrial fibrillation The patient presented with atrial fibrillation. The etiology may be multifactorial secondary to a combination of her age, hypertension, pulmonary disease, ongoing infectious related etiologies, etc. She is continuing to be monitored. She is continuing medical therapy for rate control. 2. Nonsustained wide-complex tachycardia/nonsustained VT The patient has any history of cardiac dysrhythmia in the past that she is aware of. She has had endings of her underlying atrial dysrhythmia and nonsustained wide- complex tachycardia thought compatible with nonsustained VT. She has been undergoing noninvasive evaluation. Has included a follow-up transthoracic echocardiogram. Based upon the transthoracic echocardiogram today she does demonstrate evidence of mild global left ventricular systolic dysfunction with an estimated LVEF 45% as well as right ventricular dilatation/global dysfunction, moderate TR, and an estimated RV systolic pres sure of 79 mmHg compatible with pulmonary hypertension. She has also been evaluated with diagnostic cardiac catheterization as previously noted. She had no angiographically significant appearing CAD. She has been on medical therapy with beta-blockers. 3. Cardiomyopathy The patient does have evidence of mild global left ventricular systolic dysfunction based upon her repeat transthoracic echocardiogram as well as right ventricular dilatation dysfunction which is thought secondary to her pulmonary hypertension which could lead to pulmonary and right heart failure. Based upon her invasive valuation she does not have angiographically significant appearing CAD to explain her left ventricular dysfunction. This may be related to her atrial dysrhythmia/tachycardia. At the present time she will need to continue medical therapy which will include beta-sowmya therapy/rate control therapy as tolerated as well as afterload reducing agents. Over time her LV systolic function can be followed noninvasively. 4. Pulmonary hypertension The patient has a history of pulmonary hypertension. This may be secondary to concerns of her underlying pulmonary condition with her history of pulmonary emboli, etc. At the present time she will need continued medical therapy and support. 5. Thromboembolic disease/PE The patient has a history of pulmonary embolism. She has been on anticoagulant therapy. Her INR appears to be therapeutic today. 6. GERD The patient states she has GERD as well as potentially a peptic ulcer. She has been on medical therapy. 7. Anemia The patient states she has a history of chronic anemia. She states it has been attributed to her underlying gastrointestinal disease process. Her H&H was reported. It did not have any significant change/decline. This will need to be followed during her evaluation and care. 8. Nausea/emesis/diarrhea The patient presented with a variety of symptoms with respect of abdominal discomfort, nausea, emesis, diarrhea. She underwent evaluation for viral illnesses included COVID-19 x2 which was reported as negative. She will need continued valuation care per internal medicine. 9. Abnormal UA The patient does have an abnormal UA. It appears she has been placed on antibiotic therapy. Overall, from a cardiac standpoint, the patient will need to continue cardiac medical therapy. She should have continued outpatient cardiovascular follow-up. Over time her left ventricular systolic function can be followed by echocardiogram. Also she should have follow-up with pulmonology for further evaluation care of her underlying pulmonary disease process and subsequent findings suggestive of pulmonary hypertension. This note was generated using a voice recognition system and there may be incorrect words, spelling or punctuation that were not noted when reviewing the office note prior to saving.
== END 2020-07-21 17:00 | disposition home or self-care (01) | DRG 872 ==
LOC: ED 11:25 → PCU 16:23
PROVIDERS: Internal Medicine Cardiovascular Disease; Student in an Organized Health Care Education/Training Program; Admitting Provider Internal Medicine; Emergency Provider Emergency Medicine; PCP Internal Medicine; Visit Provider Hospitalist
DX: A41.9 Sepsis, unspecified organism (principal); N30.00 Acute cystitis without hematuria; E87.2 Acidosis; Z68.44 Body mass index [BMI] 60.0-69.9, adult; I47.2 Ventricular tachycardia; I42.9 Cardiomyopathy, unspecified; I27.20 Pulmonary hypertension, unspecified; I48.0 Paroxysmal atrial fibrillation; D50.9 Iron deficiency anemia, unspecified; Z79.01 Long term (current) use of anticoagulants; Z86.711 Personal history of pulmonary embolism; Z79.899 Other long term (current) drug therapy; Z87.891 Personal history of nicotine dependence; M15.9 Polyosteoarthritis, unspecified; E66.01 Morbid (severe) obesity due to excess calories; G47.33 Obstructive sleep apnea (adult) (pediatric); K21.9 Gastro-esophageal reflux disease without esophagitis; Z87.11 Personal history of peptic ulcer disease; Z23 Encounter for immunization
CPT/HCPCS: 36415; 71045; 74176; 80048; 80053; 81001; 82550; 82728; 83540; 83550; 83605; 83615; 83690; 83735; 84145; 84443; 84484; 85014; 85018; 85025; 85379; 85384; 85610; 86140; 87040; 87426; 87635; 93005; 93306; 93308; 93458; 94640; 97161; 97166; 97802; 99152; 99153; 99285; G0008; J7030; Q9957; Q9967; 90686; A4216; C1769; C1894; C8924; C8929; U0002

== ENCOUNTER 2020-08-17 02:09 | Observation (INO) | payer MEDICARE, SELFPAY ==
[2020-07-18 15:23] VITALS: BMI 60.1
[2020-08-17] VITALS (17 sets, daily range): BP systolic 87–128; BP diastolic 44–76; PULSE 85–124; RESP 15–22; TEMP 36.3–36.9; O2SAT 92–98; BMI 69.7; BMI 69.6
--- NOTE | 2020-08-17 02:14 | EKG12_ITS ---
Test Reason : FALL Blood Pressure : / mmHG Vent. Rate : 126 BPM Atrial Rate : 133 BPM P-R Int : 000 ms QRS Dur : 096 ms QT Int : 282 ms P-R-T Axes : 000 103 -39 degrees QTc Int : 408 ms Atrial fibrillation with rapid ventricular response Incomplete right bundle branch block Possible Right ventricular hypertrophy Nonspecific T wave abnormality Abnormal ECG Confirmed by BEST STEWART, SAI ([id number]), editorial clerk BENJI TONG ([id number]) on 08/19/2020 10:03:30 AM Referred By: FARHEEN Confirmed By:SAI JEWELL MD
--- NOTE | 2020-08-17 02:14 | CT_ITS ---
STUDY: CT BRAIN WITHOUT CONTRAST REASON FOR EXAM: Female, 59 years old. Head injury RADIATION DOSAGE (If Supplied By Facility): CTDIvol = ( 44.99 ) mGy, DLP = ( 796.11 ) mGycm TECHNIQUE: Transaxial CT imaging of the brain was performed without administration of intravenous contrast material. Individualized dose optimization techniques were used for this CT. COMPARISON: No relevant priors. FINDINGS: Normal soft tissue structures. Normal calvarium. There is mild cerebral atrophy with widening of the extra-axial spaces and ventricular dilatation. There are areas of decreased attenuation within the white matter tracts of the supratentorial brain, consistent with microvascular disease changes. There are small punctate calcifications of the basal ganglia which are seen in the aging brain as a normal variant. Normal brainstem. There is mild cerebellar atrophy. There is no intracranial hemorrhage. There are no findings of an acute ischemic infarction. Postoperative changes in the sinuses. Chronic appearing maxillary mucosal thickening. CT/Brain/Head without Contrast IMPRESSION: Atrophy no evidence of acute hemorrhage or infarct or edema. Electronically Signed: Annette Linares MD at 2:57 EDT Tel , Service support ,
--- NOTE | 2020-08-17 02:14 | CT_ITS ---
STUDY: CT CERVICAL SPINE WITHOUT CONTRAST REASON FOR EXAM: Female, 59 years old. Fall, tripped while getting out of bed, hit head RADIATION DOSAGE (If Supplied By Facility): CTDIvol = ( ) mGy, DLP = ( ) mGycm TECHNIQUE: High resolution transaxial imaging was performed without contrast material. Sagittal and coronal images were reconstructed. Individualized dose optimization techniques were used for this CT. COMPARISON: None FINDINGS: Normal craniovertebral junction. There are degenerative changes of the anterior atlantoaxial articulation. Normal odontoid process. Normal cervical lordosis. There is multilevel spondylosis C2-3: Normal endplates. Normal disc height and morphology. Normal central canal and intervertebral neuroforamina. C3-4: Normal endplates. Normal disc height and morphology. Normal central canal and intervertebral neuroforamina. C4-5: There is disc space narrowing and broad disc osteophyte. There is an osteophyte extending into the right side of the canal and neural foramen. There is moderate to severe neural foramina narrowing and moderate central stenosis. C5-6: There is disc space narrowing central disc osteophyte protrusion moderate neural foramina narrowing moderate to severe central stenosis. C6-7: There is disc space narrowing and broad disc osteophyte moderate to severe neural foramina narrowing moderate to severe central stenosis. C7-T1: There is a central disc osteophyte protrusion with minimal neural foramina narrowing or significant central stenosis. There is a small focus of apical nonspecific scarring or potentially groundglass opacity. CT/Spine Cervical without Contras IMPRESSION: Advanced Degenerative change of the cervical spine. Multilevel neural foramina narrowing moderate to severe neural foraminal narrowing and central stenosis C5-C6 C6-C7. When possible recommend consideration for follow-up MRI of the cervical spine. No Visualized acute fracture. Electronically Signed: Annette Linares MD at 3:44 EDT Tel , Service support ,
[2020-08-17] MEDS: dilTIAZem CD 120 MG Capsule PO (02:25)
[2020-08-17] MEDS: Metoprolol Tartrate 25 MG Tablet 50 MG PO (02:25)
--- NOTE | 2020-08-17 02:30 | ED.RN ---
DAUGHTER OF PATIENT PULLED THIS RN ASIDE OUTSIDE OF PATIENTS ROOM. DAUGHTER STATES PATIENT HAS MADE COMMENTS OF NOT WANTING TO LIVE ANYMORE. DAUGHTER ALSO STATES PATIENT HAS NOT BEEN TAKING CARE OF HERSELF LATELY INCLUDING NOT BATHING. DAUGHTER CONCERNED. DR. ZHONG NOTIFIED.
--- NOTE | 2020-08-17 02:34 | ED.VIS.FALL ---
History of Present Illness Chief Complaint: Fall Narrative: Patient presenting for evaluation secondary to a fall. Patient has an underlying history of blood clots A. fib, recent hospital admission for A. fib with RVR obesity hypertension. Patient apparently has been dealing with a urinary tract infection recently and has been suffering from urinary urgency. She reports that tonight she had a sudden urge that she needed to urinate so she got out of bed. She reports that she lost her balance, did fall and hit her head. She denies that she lost consciousness but reports that she is on anticoagulation with Coumadin, and has not been getting her numbers checked recently so she is unsure of her INR. Patient denies any visual changes numbness or weakness, although when EMS arrived she was too weak to stand. Patient reports that she has been dealing with some chronic wounds on her legs that she has been attempting to keep clean, she denies recent fevers. She does report that she completed her course of antibiotics for her urinary tract infection. Patient's daughter also informed nursing that they were concerned about her mental health as she has been making comments about potentially wanting to kill herself. She has had a precipitously declining health status recently as she has not been showering or taking care of herself. Past Medical History - Allergies and Home Meds Allergies/Adverse Reactions: Allergies enoxaparin [From Lovenox] Allergy (Severe, Verified 08/17/20 02:14) Rash & Itching green tea Allergy (Intermediate, Verified 08/17/20 02:14) Itching peaches Allergy (Severe, Uncoded 08/17/20 02:14) Unknown Primary Care Physician: Emily Husain MD [Primary Care Provider] - Prior records reviewed: Yes Past Medical History: - - Atrial fibrillation, pulmonary embolism, hypertension Surgical History: cholecystectomy Smoking Status: Former smoker Alcohol: None Drugs: None Review of Systems All systems negative except as indicated General: Denies: Chills, Fever, Sweats Eyes: Denies: Visual changes - bilaterally, Diplopia ENT: Denies: Rhinorrhea, Sore throat Cardiovascular: Denies: Chest pain, Palpitations Respiratory: Denies: Dyspnea, Cough, Dyspnea on exertion Gastrointestinal: Denies: Abdominal pain, Nausea, Vomiting, Diarrhea, Melena, Hematochezia Genitourinary: Reports: Frequency Musculoskeletal: Denies: Back pain, Extremity Pain Skin: Reports: Wounds Neurological: Denies: Headache, Weakness, Numbness Physical Exam Vital Signs/Narrative: Vital Signs Temp Pulse Resp BP Pulse Ox 08/17/20 02:10 98.1 F 124 H 15 124/68 H 93 Inital Vital Signs reviewed: Yes General: Well nourished, Well developed, Obese - Morbidly obese Head: Normocephalic, Atraumatic Eyes: Perrl, EOMI ENT: No trauma Neck: Nontender, Full ROM. Negative for: Spinal Tenderness, Paraspinal Tenderness Cardiovascular: No murmurs, Irregular, Tachycardia, - - 2+ radial, 2+ DP pulses bilaterally symmetric Respiratory: No distress, CTA bilaterally, Chest nontender Abdomen: Soft, Nontender, Nondistended, Normal bowel sounds Extremeties: Extremity exam shows an abrasion over the lateral portion of the patient's left thigh, no evidence of laceration. Patient has a chronic appearing wound over the proximal left hernandez with some chronic skin changes of the anterior tibial region but no evidence of surrounding cellulitis or lymphangitic streaking. Patient complains of her knees bilaterally being painful, but no obvious deformity although exam is difficult secondary to body habitus. Patient has +1 pitting edema of the lower extremities bilaterally. Skin: Normal color, No rash Neurological: Alert, Oriented x3, Cranial nerves II-XII grossly intact, Normal Strength, Normal Sensation Psychological: - - On initial exam the patient has an apparent normal affect, does not seem depressed Diagnostic/Tx/Re-eval Clinical Impression(s) from Imaging Studies Brain CT 08/17/20 02:14 IMPRESSION: Atrophy no evidence of acute hemorrhage or infarct or edema. Electronically Signed: Annette Linares MD at 2:57 EDT Tel , Service support , Cervical Spine CT 08/17/20 02:14 IMPRESSION: Advanced Degenerative change of the cervical spine. Multilevel neural foramina narrowing moderate to severe neural foraminal narrowing and central stenosis C5-C6 C6-C7. When possible recommend consideration for follow-up MRI of the cervical spine. No Visualized acute fracture. Electronically Signed: Annette Linares MD at 3:44 EDT Tel , Service support , Laboratory Data 08/17/20 08/17/20 08/17/20 02:30 02:30 02:30 WBC 5.8 RBC 5.26 Hgb 9.5 L Hct 37.1 MCV 70.5 L MCH 18.1 L MCHC 25.6 L RDW Std Deviation 63.9 H RDW Coeff of Claudia 26.3 H Plt Count 294 Immature Gran % (Auto) 0.200 Neut % (Auto) 65.5 Lymph % (Auto) 18.2 L [place] % (Auto) 10.7 H Eos % (Auto) 4.5 Baso % (Auto) 0.9 Absolute Neuts (auto) 3.8 Absolute Lymphs (auto) 1.06 Nucleated RBC % 0.7 PT 29.6 H INR 2.9 APTT 35.5 Sodium 138 Potassium 4.6 Chloride 104 Carbon Dioxide 28.0 Anion Gap 6 BUN 16 Creatinine 0.94 Estim Creat Clear Calc 45.14 Est GFR (MDRD) Af Amer 78 Est GFR (MDRD) Non-Af 64 BUN/Creatinine Ratio 17.0 Glucose 135 H Calcium 9.1 Troponin I < 0.015 Urine Color Urine Clarity Urine pH Ur Specific [place] Urine Protein Urine Glucose (UA) Urine Ketones Urine Occult Blood Urine Nitrite Urine Bilirubin Urine Urobilinogen Ur Leukocyte Esterase Urine RBC Urine WBC Ur Squamous Epith Cells Urine Bacteria Urine Mucus Urine Opiates Screen Urine Methadone Screen Ur Barbiturates Screen Ur Phencyclidine Scrn Ur Amphetamines Screen U Methamphetamin-MDMA U Benzodiazepines Scrn Urine Cocaine Screen U Cannabinoids Screen Ur Drug Screen Comment Ethyl Alcohol 08/17/20 08/17/20 08/17/20 02:30 03:15 03:15 WBC RBC Hgb Hct MCV MCH MCHC RDW Std Deviation RDW Coeff of Claudia Plt Count Immature Gran % (Auto) Neut % (Auto) Lymph % (Auto) [place] % (Auto) Eos % (Auto) Baso % (Auto) Absolute Neuts (auto) Absolute Lymphs (auto) Nucleated RBC % PT INR APTT Sodium Potassium Chloride Carbon Dioxide Anion Gap BUN Creatinine Estim Creat Clear Calc Est GFR (MDRD) Af Amer Est GFR (MDRD) Non-Af BUN/Creatinine Ratio Glucose Calcium Troponin I Urine Color Yellow Urine Clarity Cloudy Urine pH 5.0 Ur Specific [place] 1.025 Urine Protein 100 H Urine Glucose (UA) Normal Urine Ketones 5 H Urine Occult Blood 10 H Urine Nitrite Negative Urine Bilirubin 1 H Urine Urobilinogen 8 H Ur Leukocyte Esterase 25 H Urine RBC 0-5 SEEN Urine WBC 5-10 SEEN Ur Squamous Epith Cells 5-10 SEEN Urine Bacteria 0 SEEN Urine Mucus 0 SEEN Urine Opiates Screen NEGATIVE Urine Methadone Screen NEGATIVE Ur Barbiturates Screen NEGATIVE Ur Phencyclidine Scrn NEGATIVE Ur Amphetamines Screen NEGATIVE U Methamphetamin-MDMA NEGATIVE U Benzodiazepines Scrn NEGATIVE Urine Cocaine Screen NEGATIVE U Cannabinoids Screen NEGATIVE Ur Drug Screen Comment Ethyl Alcohol < 3.0 - EKG Initial EKG Interpretation: - - Atrial fibrillation with rapid ventricular rate of 126. Incomplete right bundle branch block morphology is noted with nonspecific diffuse T wave flattening. This is consistent with a prior EKG of July 18 of this year. No evidence of acute ischemic changes. - Medical Decision Making Patient presented secondary to a fall. She was noted to be in A. fib RVR on initial presentation but typically takes her medications in the morning she was given her dose of metoprolol and Cardizem orally. She did have a return to a normal rate while she was in the emergency department with a rate in the 90s. CT imaging of the brain and cervical spine were obtained and were found to be negative for acute process per radiology. CBC demonstrates chronic anemia hemoglobin of 9, chemistry shows no acute kidney injury or electrolyte derangements. Troponin was negative. Urinalysis demonstrates moderate infection. Patient will be placed on Keflex for her urinary tract infection, her INR was therapeutic at 2.9. Patient's daughter expressed some concern about the patient's mental status. I went back and reevaluated the patient at 0400 and had a discussion with her about this. Patient states that she does feel somewhat depressed because she has lost multiple family members, now she is living with her daughter in a house that is very loud and she states that she likes to typically keep to herself. She has expressed to her daughter that it is difficult to live the way that she is living as she is having multiple health problems and difficulty ambulating and feels that she has lost multiple family members but she explicitly states that she does not feel that she is a risk of being suicidal. Patient seems to have good insight and good judgment I do not feel that she requires psychiatric clearance at this time. Patient will be provided with the number for the counseling center. Patient also states she was unsure of who she is supposed to follow-up with for cardiology, she will be provided a cardiology follow-up. Patient was discharged in stable condition. ED Disposition - Plan for ED Patient: Disposition: Home or Assisted Living Diagnosis: Atrial fibrillation with RVR, Venous stasis ulcer, Urinary tract infection Instructions: ED Wound Care, ED Fall Prevention, ED Bladder Infection, Female (Adult) Prescriptions: Cephalexin [Keflex] 500 mg PO Q6 #40 cap Transmission Status: Pending to [id number] Referrals: Counseling,Center [GROUP OF PHYSICIANS] - 1-2 Weeks Yossi Noriega MD [STAFF PHYSICIAN] - 1-2 Weeks Emily Husain MD [Primary Care Provider] - As Needed
[2020-08-17 02:42] LABS: Absolute Lymphocyte Count 1.06 X10^3/uL (0.83-4.51); Absolute Neutrophil Count 3.8 X10^3/uL (2.0-7.7); Basophil# 0.05 X10^3/uL; Basophil% 0.9 % (0-1); Differential Indicated SCAN CRITERIA MET; Eosinophil# 0.26 X10^3/uL; Eosinophils% 4.5 % (0-5); Hematocrit 37.1 % (37-47); Hemoglobin 9.5 g/dL (12.0-15.0); Lymphocyte # 1.06 X10^3/ul (4.0); Lymphocyte % 18.2 % (19-41); Mean Corp Hgb Conc 25.6 g/dL (32-36); Mean Corpuscular Hgb 18.1 pg (27.0-32.0); Mean Corpuscular Volume 70.5 fL (81-99); Monocyte# 0.62 X10^3/uL; Monocyte% 10.7 % (0-10); NRBC Flagged by Analyzer 0.7 % (0-5); Neutrophil # 3.82 X10^3/uL (2.7-7.7); Neutrophil % 65.5 % (47-70); POSITIVE MORPHOLOGY YES; Platelet Count 294 K/mm3 (150-450); RBC Distribution Width CV 26.3 % (11.6-14.6); RBC Distribution Width SD 63.9 fl (35.1-43.9); Red Blood Count 5.26 M/mm3 (4.2-5.4); White Blood Count 5.8 K/mm3 (4.4-11.0)
[2020-08-17 02:49] LABS: International Normalized Ratio 2.9; Prothrombin Time (Protime)PT. 29.6 SECONDS (11.7-14.9)
[2020-08-17 02:50] LABS: Partial Thromboplast Time 35.5 Seconds (24.1-36.2)
[2020-08-17 02:58] LABS: Anion Gap 6 (5-15); BUN 16 mg/dL (7-18); Calcium,Total 9.1 mg/dL (8.5-10.1); Chloride 104 mmol/L (98-107); Creatinine, Serum 0.94 mg/dL (0.55-1.02); EST Glomerular Filtration Rate 64 mL/min (>60); Est Glom Filt Rate - Afr Amer 78 mL/min (>60); Estimated Creatinine Clearance 45.14 ml/min; Glucose 135 mg/dL (74-106); Potassium 4.6 mmol/L (3.5-5.1); Sodium Level 138 mmol/L (136-145)
[2020-08-17 03:10] LABS: Alcohol, Blood (Medical)-Serum < 3.0 mg/dL
[2020-08-17 03:20] LABS: Bacteria 0 SEEN /hpf (None Seen); Mucous, Urine 0 SEEN /hpf (<or=2+)
[2020-08-17 03:22] LABS: Color, Urine Yellow (Yellow); Glucose, Dipstick Normal (Normal); Ketone-Dipstick 5 mg/dl (Negative); Leukocyte Esterase-Dipstick 25 /ul (Negative); Nitrite-Dipstick Negative (Negative); Occult Blood-Urine 10 /ul (Negative); Protein-Dipstick 100 mg/dl (Negative); Specific Gravity, Urine 1.025 (1.002-1.030); Urine Clarity Cloudy (Clear); Urine Urobilinogen 8 mg/dl (Normal)
[2020-08-17 03:23] LABS: Urine Bilirubin Dipstick 1 mg/dL (Negative)
[2020-08-17 03:37] LABS: Red Blood Cells-Urine 0-5 SEEN /hpf (0-5); Squamous Epithelial Cells - UA 5-10 SEEN /hpf (5-10); White Blood Cells 5-10 SEEN /hpf (0-5)
[2020-08-17 03:38] LABS: Amphetamine Urine VISTA NEGATIVE (<1000 ng/mL); Barbiturate Urine VISTA NEGATIVE (< 200 ng/mL); Benzodiazepine Urine VISTA NEGATIVE (< 200 ng/mL); Cocaine Urine VISTA NEGATIVE (< 300 ng/mL); Ecstacy Urine VISTA NEGATIVE (< 500 ng/mL); Methadone Urine VISTA NEGATIVE (< 300 ng/mL); PCP Urine VISTA NEGATIVE (< 25 ng/mL); THC Urine VISTA NEGATIVE (< 50 ng/mL); Vista UDS pH Range 5
[2020-08-17] MEDS: Cephalexin 250 MG Capsule 500 MG PO (04:17)
--- NOTE | 2020-08-17 05:52 | ED.RN ---
PATIENT'S DAUGHTER RETURNED TO EMERGENCY DEPARTMENT. PATIENTS DAUGHTER IS CONCERNED THAT PATIENT IS UNABLE TO GET AROUND AT HOME. STATES PATIENT HAS NOT BEEN ABLE TO WALK, JUST STAND AND PIVOT FROM CHAIR TO TOILET AND UNABLE TO TAKE CARE OF SELF. PATIENT'S DAUGHTER IS TEARFUL. PATIENT THEN STATES I WOULD BENEFIT FROM THERAPY. DR. ZHONG NOTIFIED.
--- NOTE | 2020-08-17 06:20 | PCM.HP.STD ---
Problem List (1) Venous stasis ulcer Status: Inactive (2) Urinary tract infection Status: Resolved (3) Atrial fibrillation with RVR Status: Acute (4) Pulmonary embolism Status: Chronic Comment: 2007 (5) GERD (gastroesophageal reflux disease) Status: Chronic (6) High blood pressure Status: Chronic Qualifiers: Hypertension type: essential hypertension Qualified Code(s): I10 - Essential (primary) hypertension (7) Carpal tunnel syndrome Status: Chronic (8) Arthritis Status: Chronic (9) Allergies Status: Chronic (10) Morbid obesity with BMI of 60.0-69.9, adult Status: Chronic History of Present Illness Date of Admission: 08/17/20 Chief Complaint: Fall. A. fib with RVR The patient is a 59 year old F with multiple comorbidities as listed above came to ED after fall. Patient woke up to go to bathroom for urination and then she lost control and equilibrium, tripped over chair and fell down and hit her head. Denies loss of consciousness. Patient recently had a UTI. She also has chronic incontinence secondary to large abdominal panniculus and urge incontinence. She denies burning micturition now. Patient in A. fib with RVR, heart rate 124/m in ED. Blood pressure, respiratory rate and pulse ox normal. Patient had 1 dose of oral metoprolol 50 mg and Cardizem CD 120 mg and heart rate improved to 97/min and was thought to discharge home but she could not walk 2 steps therefore admitted. Patient denies chest pain. Chronic dyspnea on exertion for last 4 to 5 years. Had extensive cardiopulmonary exam another hospital prior to consideration for obesity surgery in recent past. Labs reviewed. INR 2.9. Troponin negative. UA WBC 5-10 cells, RBC 0-5 cells, nitrite negative. Twelve-lead EKG A. fib with RVR at 120 bpm incomplete RBBB, QRS 96 ms, QTC [address] CT head no evidence of acute intracranial change. CT C-spine no acute finding. Past Medical History Past Medical History (Chronic Problems): Chronic Problems (This Medical Record has been edited. Action required.) Morbid obesity with BMI of 60.0-69.9, adult (Chronic) Pulmonary embolism (Chronic) 2007 GERD (gastroesophageal reflux disease) (Chronic) High blood pressure (Chronic) Carpal tunnel syndrome (Chronic) Arthritis (Chronic) Allergies (Chronic) Medical History: Medical History (This Medical Record has been edited. Action required.) Pulmonary embolism (Chronic) I26.99 2007 GERD (gastroesophageal reflux disease) (Chronic) K21.9 Carpal tunnel syndrome (Chronic) G56.00 Arthritis (Chronic) M19.90 History of left heart catheterization (LHC) Onset Date: ~07/20/20 Z98.890 Normal Coronary Arteries per cath 07/20/20 Blood clot in vein (Inactive) I82.90 Rt leg 2014 Allergies enoxaparin [From Lovenox] Allergy (Severe, Verified 08/17/20 02:14) Rash & Itching green tea Allergy (Intermediate, Verified 08/17/20 02:14) Itching peaches Allergy (Severe, Uncoded 08/17/20 02:14) Unknown Home Medications: Ambulatory Orders Medication Instructions Recorded Circulation Vein Support PO 07/05/19 Fish Oil PO 07/05/19 Iron Pill PO 07/05/19 acetaminophen 325 mg tablet 650 mg PO BID PRN tab 07/05/19 calcium carb-magnesium carb PO 07/05/19 cholecalciferol (vitamin D3) 125 2,000 mcg PO DAILY 07/05/19 mcg (5,000 unit) capsule mecobalamin (vitamin B12) 1,000 mcg PO DAILY 07/05/19 warfarin 5 mg tablet 5 mg PO DAILY #90 tab 07/06/19 lisinopril 20 mg tablet 20 mg PO DAILY #90 tab 07/09/19 pantoprazole 40 mg tablet,delayed 40 mg PO DAILY #90 tab 04/08/20 release Diltiazem CD [Cardizem CD] 120 mg PO DAILY #30 cap 07/21/20 Metoprolol Tartrate [Lopressor 50 mg PO BID #90 tab 07/21/20 (beta sowmya)] Cephalexin [Keflex] 500 mg PO Q6 #40 cap 08/17/20 Surgical History: Surgical History (This Medical Record has been edited. Action required.) History of cholecystectomy Z90.49 History of oral surgery Z98.890 Surgical History: cholecystectomy Smoking Status: Former smoker Alcohol: None Drugs: None Review of Systems Constitutional: Reports: Malaise, Weakness, Fatigue. Denies: Chills, Fever, Weight Change HEENT: Denies: Head Aches, Sinus Congestion, Sinus Drainage Cardiovascular: Denies: Chest Pain, Palpitations Respiratory: Reports: Shortness of breath upon exertion. Denies: Cough, Shortness of breath at rest, Sputum production Gastrointestinal: Denies: Abdominal Pain, Nausea, Vomiting Genitourinary: Denies: Dysuria Musculoskeletal: Denies: Joint Pain, Joint Tenderness Skin: Denies: Rash, Wounds Neurological: Denies: Numbness, Tingling, Focal weakness Psychiatric: Denies: Anxiety, Depression, Homicidal Ideations, Suicidal Ideations Hematologic/ Lymphatic: Denies: Easy Bruising, Easy Bleeding VTE Information - Inpt Only VTE Present on Admission: No VTE Mechan Device Prophylaxis: None VTE Pharm Prophylaxis ordered?: No Reason prophylaxis not ordered:: Procedure Not Indicated - INR 2.9. Patient Problems: Active and Suspected Problems (This Medical Record has been edited. Action required.) Atrial fibrillation with RVR (Acute) Objective: General: Alert, Oriented x3, Cooperative, super morbid obesity BMI 69.8 kg/m? HEENT: Atraumatic, PERRLA, EOMI, Normocephalic Oral: Pharyngeal structures crowded, not completely visualized. No Gingival or Mucosal Lesions/ Ulcerations Neck: Supple, No JVD, Negative Carotid Bruits Lungs: Air entry diminished in bilateral lung bases. No crepitation/rhonchi Cardiovascular: Irregular rate and rhythm, A. fib normal S1, Normal S2, No murmurs Abdomen: Bowel Sounds Present, Soft, Non Tender, Non-Distended : No renal angle tenderness. No suprapubic tenderness. Extremities: No edema, Capillary Refill Less than 3 Seconds Skin: Large abdominal, pelvic panniculus and thigh fat. Musculoskeletal: Bilateral knee and hip joints arthritis. Mild tenderness to deep palpation of knee joints. ROM restricted Neurological: Cranial nerves II-XII grossly intact, Deep Tendon Reflexes 2+/4 and Symmetrical, Neuro grossly intact Psych/Mental Status: Normal Affect, Appropriate. - Physical Exam Vitals/I&O's: Vital Signs Temp Pulse Resp BP Pulse Ox 98.1 F 96 22 H 111/76 94 08/17/20 06:00 08/17/20 06:00 08/17/20 06:00 08/17/20 06:00 08/17/20 06:00 Oxygen Delivery Method Room Air Weight: 357 lb 2.382 oz Body Mass Index (BMI) 69.7 Laboratory Results 08/17/20 02:30: WBC 5.8, RBC 5.26, Hgb 9.5 L, Hct 37.1, MCV 70.5 L, MCH 18.1 L, MCHC 25.6 L, RDW Std Deviation 63.9 H, RDW Coeff of Claudia 26.3 H, Plt Count 294, Immature Gran % (Auto) 0.200, Neut % (Auto) 65.5, Lymph % (Auto) 18.2 L, [place] % (Auto) 10.7 H, Eos % (Auto) 4.5, Baso % (Auto) 0.9, Absolute Neuts (auto) 3.8, Absolute Lymphs (auto) 1.06, Nucleated RBC % 0.7 08/17/20 02:30: Sodium 138, Potassium 4.6, Chloride 104, Carbon Dioxide 28.0, Anion Gap 6, BUN 16, Creatinine 0.94, Estim Creat Clear Calc 45.14, Est GFR (MDRD) Af Amer 78, Est GFR (MDRD) Non-Af 64, BUN/Creatinine Ratio 17.0, Glucose 135 H, Calcium 9.1, Troponin I < 0.015 08/17/20 02:30: PT 29.6 H, INR 2.9, APTT 35.5 08/17/20 02:30: Ethyl Alcohol < 3.0 08/17/20 03:15: Urine Color Yellow, Urine Clarity Cloudy, Urine pH 5.0, Ur Specific Jeff 1.025, Urine Protein 100 H, Urine Glucose (UA) Normal, Urine Ketones 5 H, Urine Occult Blood 10 H, Urine Nitrite Negative, Urine Bilirubin 1 H, Urine Urobilinogen 8 H, Ur Leukocyte Esterase 25 H, Urine RBC 0-5 SEEN, Urine WBC 5-10 SEEN, Ur Squamous Epith Cells 5-10 SEEN, Urine Bacteria 0 SEEN, Urine Mucus 0 SEEN 08/17/20 03:15: Urine Opiates Screen NEGATIVE, Urine Methadone Screen NEGATIVE, Ur Barbiturates Screen NEGATIVE, Ur Phencyclidine Scrn NEGATIVE, Ur Amphetamines Screen NEGATIVE, U Methamphetamin-MDMA NEGATIVE, U Benzodiazepines Scrn NEGATIVE, Urine Cocaine Screen NEGATIVE, U Cannabinoids Screen NEGATIVE, Ur Drug Screen Comment Assessment/Plan All Active Problems (This Medical Record has been edited. Action required.) Atrial fibrillation with RVR (Acute) Urinary tract infection (Resolved) This 59-year-old comorbid obesity patient came to ER with fall and found to be A. fib with RVR. 1. A. fib with RVR: Patient heart rate has improved but not optimally controlled. Patient is being admitted in PCU. As per the patient's daughter, shortness of breath has got worse after rate control A. fib medication failure metoprolol. Continue metoprolol 50 mg p.o. twice daily. Cardizem CD increased to 120 mg p.o. twice daily. BNP ordered. Troponin negative. Last echo in July 26 reported suboptimal yesterday, unable to comment on EF. Mild MR. Repeat echo ordered. Patient has history of NSVT and V. tach during previous hospitalization in July 2020. 2. Obstructive sleep apnea and COPD, chronic right ventricular failure: As per patient she was told her severe COPD. 2D echo also shows mild RV dilatation and moderate pulmonary hypertension, RVSP 55 mmHg. CPAP ordered. Patient is not on home inhaler. Need to follow-up pulmonary clinic after discharge. DuoNeb as needed ordered. 3. Fall with decreasing physical capacities: PT OT and possible SNF placement. 4. History of DVT and PE: Patient on Coumadin. INR 2.9. Coumadin 4 mg today and then 5 mg daily from tomorrow a.m. Monitor INR daily 5. Abnormal UA: UA shows WBC 5-10 cells, LE 25, nitrite negative. Patient denies burning micturition/dysuria. Chronic urinary incontinence. Had 1 dose of Keflex 500 mg in the ER. Urine culture ordered. Patient r recently had treatment for UTI. At present, no indication for antibiotic treatment but follow-up urine culture 6. Iron deficiency anemia chronic in nature: During previous hospitalization in July 26, iron work-up suggestive of iron deficiency anemia. Ferrous sulfate 325 mg added. Patient on cobalamin 1000 mcg daily. Vitamin B12 ordered. other multiple chronic comorbidities include GERD, bilateral hip and knee joints DJD, and super morbid obesity Living will/advanced directive/end of life care: Patient does not have living will or advanced directive or power of commercial real estate attorney for health. Her daughter is only child and power of commercial real estate attorney for health. After discussion of benefits/risks procedures involved with full code, DNR CC arrest and DNR CC, the patient understands the procedure but unclear about CODE STATUS and want more time for decision. Therefore keep full code. Total time spent in [id number] encounter in discussion of advanced directive 16 minutes. OBSV E&M: 67961 Initial observation care L3 Procedures: 88789 Advncd Care Plan 30 Min
[2020-08-17 06:44] LABS: Magnesium 2.1 mg/dL (1.6-2.6)
[2020-08-17] MEDS: 0.9% Saline Lock 10 ML Syringe IV ×3 (09:03→17:34)
[2020-08-17 09:05] LABS: BNP,B-Type NATRIURETIC PEPTIDE 134.1 pg/mL (0-100)
[2020-08-17 09:14] LABS: Vitamin B12 > 2000 pg/mL (211-911)
[2020-08-17] MEDS: Metoprolol Tartrate 50 MG Tablet PO ×2 (09:39→21:19)
[2020-08-17] MEDS: Pantoprazole Sodium 40 MG Tablet PO (09:39)
[2020-08-17] MEDS: Acetaminophen 325 MG Tablet 650 MG PO ×2 (09:39→21:19)
[2020-08-17] MEDS: Furosemide 40 MG/4 ML Vial IV ×2 (12:10→17:34)
[2020-08-17] MEDS: Lisinopril 10 MG Tablet PO (12:10)
[2020-08-17] MEDS: Ferrous Sulfate 325 MG Tablet PO (12:10)
--- NOTE | 2020-08-17 14:45 | CASEMGMT ---
Addendum entered by Karina James 08/17/20 15:42: SW received a message from Hilaria in the Transitional Unit at [facility]. They do take pt's insurance, would need to review the referral to see if they can take pt. SW let pt know the [facility] Unit at [facility] does take her insurance. Pt still plans to speak w/daughter and will let SW know tomorrow where she would like referral sent. MARTIN Rogers Original Note: SW informed by PT/OT that pt needs placement for rehab. SW met w/pt in room in regard to prior level of care and discharge plan. Pt's PCP is Dr. Patel, pt has [employer] Medicare insurance. Pt lives home w/daughter, is normally independent with ADL's though doesn't drive, daughter is the pharmacy delivery driver. Pt uses a rollator or a cane for ambulation. Pt has been to the [facility] transitional unit in the past. SW spoke w/pt about where she may want to go for rehab, she is in agreement with this plan. SW provided a shelter list to pt that includes quality and resource use data and is consistent with the patient's preferred geographic region, medical needs, and insurance network. Pt states would like to speak w/her daughter about where to go, and for SW to follow up in the morning. SW explained the [facility] is not on the list of in network providers, SW explained will call to find out if they take her insurance and let her know this today. Pt states understanding. SW called the [facility], message left for Hilaria inquiring about whether or not they take pt's insurance. SW will continue to follow. MARTIN Rogers
--- NOTE | 2020-08-17 17:11 | PCM.PN.HOSP ---
Patient Problems: Active and Suspected Problems (This Medical Record has been edited. Action required.) Atrial fibrillation with RVR (Acute) Subjective: Breathing well. Increased LE edema. Vitals/I&O's: Vital Signs Temp Pulse Resp BP Pulse Ox 36.5 C L 100 18 91/44 L 98 08/17/20 12:00 08/17/20 15:00 08/17/20 12:00 08/17/20 12:00 08/17/20 12:00 Oxygen Flow Rate (L/min) 2 Oxygen Delivery Method Nasal Cannula Weight: 161.7 kg Body Mass Index (BMI) 69.6 Intake and Output for Last 24 Hours 08/15/20 08/16/20 08/17/20 22:59 23:59 23:59 Intake Total 120 / 120 Balance 120 / 120 General: Alert, No apparent distress HEENT: Atraumatic, Normocephalic Oral: Moist Mucosa, No Gingival or Mucosal Lesions/ Ulcerations Neck: No Nodes, Thyroid Normal Size and Texture Lungs: Clear to auscultation, Normal air movement, No rhonchi, No wheeze Cardiovascular: Regular rate, Regular Rhythm, Normal S1, Normal S2 Abdomen: Bowel Sounds Present, Soft, Non Tender, Non-Distended Extremities: No Calf Tenderness, Edema Psych/Mental Status: Normal Affect, Appropriate Laboratory Results 08/17/20 02:13: Vitamin B12 > 2000 H 08/17/20 02:30: WBC 5.8, RBC 5.26, Hgb 9.5 L, Hct 37.1, MCV 70.5 L, MCH 18.1 L, MCHC 25.6 L, RDW Std Deviation 63.9 H, RDW Coeff of Claudia 26.3 H, Plt Count 294, Immature Gran % (Auto) 0.200, Neut % (Auto) 65.5, Lymph % (Auto) 18.2 L, Ford % (Auto) 10.7 H, Eos % (Auto) 4.5, Baso % (Auto) 0.9, Absolute Neuts (auto) 3.8, Absolute Lymphs (auto) 1.06, Nucleated RBC % 0.7 08/17/20 02:30: Sodium 138, Potassium 4.6, Chloride 104, Carbon Dioxide 28.0, Anion Gap 6, BUN 16, Creatinine 0.94, Estim Creat Clear Calc 45.14, Est GFR (MDRD) Af Amer 78, Est GFR (MDRD) Non-Af 64, BUN/Creatinine Ratio 17.0, Glucose 135 H, Calcium 9.1, Troponin I < 0.015 08/17/20 02:30: PT 29.6 H, INR 2.9, APTT 35.5 08/17/20 02:30: Ethyl Alcohol < 3.0 08/17/20 02:30: B-Natriuretic Peptide 134.1 H 08/17/20 02:30: Magnesium 2.1 08/17/20 03:15: Urine Color Yellow, Urine Clarity Cloudy, Urine pH 5.0, Ur Specific [place] 1.025, Urine Protein 100 H, Urine Glucose (UA) Normal, Urine Ketones 5 H, Urine Occult Blood 10 H, Urine Nitrite Negative, Urine Bilirubin 1 H, Urine Urobilinogen 8 H, Ur Leukocyte Esterase 25 H, Urine RBC 0-5 SEEN, Urine WBC 5-10 SEEN, Ur Squamous Epith Cells 5-10 SEEN, Urine Bacteria 0 SEEN, Urine Mucus 0 SEEN 08/17/20 03:15: Urine Opiates Screen NEGATIVE, Urine Methadone Screen NEGATIVE, Ur Barbiturates Screen NEGATIVE, Ur Phencyclidine Scrn NEGATIVE, Ur Amphetamines Screen NEGATIVE, U Methamphetamin-MDMA NEGATIVE, U Benzodiazepines Scrn NEGATIVE, Urine Cocaine Screen NEGATIVE, U Cannabinoids Screen NEGATIVE, Ur Drug Screen Comment Current Medications Acetaminophen (Acetaminophen 325 Mg Tablet) 650 mg PO Q6H PRN PRN PRN Reason: Pain Score 1-10/Temp > 100.7 F Last Admin: 08/17/20 09:39 Dose: 650 mg Documented by: Albuterol/Ipratropium (Ipratropium/Albuterol Sulfate 3 Ml Ampul.Neb) 3 ml INHALATION Q6H.RT PRN PRN Reason: SOB/WHEEZING Cholecalciferol (Cholecalciferol (Vit D3) 1,000 Unit (25mcg)) 2,000 unit PO DAILY [facility] Last Admin: 08/17/20 09:39 Dose: 2,000 unit Documented by: Diltiazem HCl (Diltiazem Cd 120 Mg Capsule) 120 mg PO BID [facility] Last Admin: 08/17/20 09:41 Dose: Not Given Documented by: Ferrous Sulfate (Ferrous Sulfate 325 Mg Tablet) 325 mg PO DAILY@1200 [facility] Last Admin: 08/17/20 12:10 Dose: 325 mg Documented by: Furosemide (Furosemide 40 Mg/4 Ml Vial) 40 mg IV BID@1000,1800 [facility] Lisinopril (Lisinopril 10 Mg Tablet) 10 mg PO DAILY [facility] Last Admin: 08/17/20 12:10 Dose: 10 mg Documented by: Metoprolol Tartrate (Metoprolol Tartrate 50 Mg Tablet) 50 mg PO BID [facility] Last Admin: 08/17/20 09:39 Dose: 50 mg Documented by: Morphine Sulfate (Morphine 2 Mg/Ml Syringe) 2 mg IV Q3H PRN PRN PRN Reason: Pain Score 6-10 Nitroglycerin (Nitroglycerin (Inpatient Use) 0.4 Mg Tab.Subl) 0.4 mg SL Q5M PRN PRN Reason: CARDIAC/CHEST PAIN Oxycodone HCl (Oxycodone 5 Mg Tablet) 5 mg PO Q4H PRN PRN PRN Reason: Pain Score 4-5 Pantoprazole Sodium (Pantoprazole Sodium 40 Mg Tablet) 40 mg PO DAILY [facility] Last Admin: 08/17/20 09:39 Dose: 40 mg Documented by: Prochlorperazine Edisylate (Prochlorperazine 10 Mg/2 Ml Vial) 5 mg IV Q4H PRN PRN PRN Reason: Breakthrough Nausea/Vomiting Sodium Chloride (0.9% Saline Lock 10 Ml Syringe) 10 - 40 ml IV UD PRN PRN Reason: SALINE FLUSH Last Admin: 08/17/20 12:11 Dose: 10 ml Documented by: Warfarin Sodium (Warfarin 5 Mg Tablet) 5 mg PO DAILY@1700 [facility] STROKE Vital Signs/Narrative: Vital Signs Pulse 08/17/20 15:00 100 Medical Necessity - Tobacco Use Smoking Status: Former smoker Assessment/Plan All Active Problems (This Medical Record has been edited. Action required.) Atrial fibrillation with RVR (Acute) Urinary tract infection (Resolved) 1. A. fib with RVR: improved continue with dilt and metoprolol 2. acute HFrEF EF 45% on furosemide IV 3. Obstructive sleep apnea and COPD, chronic right ventricular failure: As per patient she was told her severe COPD. 2D echo also shows mild RV dilatation and moderate pulmonary hypertension, RVSP 55 mmHg. CPAP ordered. Patient is not on home inhaler. Need to follow-up pulmonary clinic after discharge. DuoNeb as needed ordered. 3. Fall with decreasing physical capacities: PT OT and possible SNF placement. 4. History of DVT and PE: Patient on Coumadin. INR 2.9. Coumadin 4 mg today and then 5 mg daily from tomorrow a.m. Monitor INR daily 5. Abnormal UA: No UTI UA shows WBC 5-10 cells, LE 25, nitrite negative. 6. Iron deficiency anemia chronic in nature: During previous hospitalization in July 26, iron work-up suggestive of iron deficiency anemia. Ferrous sulfate 325 mg added. Patient on cobalamin 1000 mcg daily. Vitamin B12 ordered. other multiple chronic comorbidities include GERD, bilateral hip and knee joints DJD, and super morbid obesity Procedures: Other Procedure - See Report - non-billable rounding as pt was seen after midnight.
[2020-08-18] VITALS (16 sets, daily range): BP systolic 87–122; BP diastolic 48–65; PULSE 78–118; RESP 16–20; TEMP 36.5–37.2; O2SAT 89–99
[2020-08-18 06:21] LABS: Absolute Lymphocyte Count 1.38 X10^3/uL (0.83-4.51); Basophil# 0.06 X10^3/uL; Basophil% 1.4 % (0-1); Eosinophil# 0.28 X10^3/uL; Eosinophils% 6.4 % (0-5); Hematocrit 32.3 % (37-47); Hemoglobin 8.3 g/dL (12.0-15.0); Lymphocyte # 1.38 X10^3/ul (4.0); Lymphocyte % 31.5 % (19-41); Mean Corp Hgb Conc 25.7 g/dL (32-36); Mean Corpuscular Hgb 18.1 pg (27.0-32.0); Mean Corpuscular Volume 70.4 fL (81-99); Mean Platelet Vol. 10.4 fl (6.2-12.0); Monocyte# 0.62 X10^3/uL; Monocyte% 14.2 % (0-10); NRBC Flagged by Analyzer 0 % (0-5); Neutrophil # 2.03 X10^3/uL (2.7-7.7); Neutrophil % 46.3 % (47-70); POSITIVE MORPHOLOGY YES; Platelet Count 260 K/mm3 (150-450); RBC Distribution Width CV 25.9 % (11.6-14.6); RBC Distribution Width SD 63.1 fl (35.1-43.9); Red Blood Count 4.59 M/mm3 (4.2-5.4); White Blood Count 4.4 K/mm3 (4.4-11.0)
[2020-08-18 06:31] LABS: International Normalized Ratio 3.7; Prothrombin Time (Protime)PT. 36.6 SECONDS (11.7-14.9)
[2020-08-18 06:35] LABS: Differential Indicated SCAN CRITERIA MET
[2020-08-18 06:47] LABS: Anisocytosis 1+; Differential Comment SCANNED
[2020-08-18 06:48] LABS: Hypochromasia 1+; Microcytosis 1+; Ovalocyte RARE; Schistocytes RARE; Target Cells RARE
[2020-08-18 06:49] LABS: Macrocytosis RARE
[2020-08-18 07:01] LABS: Anion Gap 4 (5-15); BUN 18 mg/dL (7-18); BUN/Creat Ratio 18.4 RATIO (10-20); Calcium,Total 8.8 mg/dL (8.5-10.1); Chloride 105 mmol/L (98-107); Cholesterol 73 mg/dL (200); Creatinine, Serum 0.98 mg/dL (0.55-1.02); EST Glomerular Filtration Rate 61 mL/min (>60); Est Glom Filt Rate - Afr Amer 74 mL/min (>60); Glucose 96 mg/dL (74-106); High Density Lipoprotein 31 mg/dL; Potassium 3.9 mmol/L (3.5-5.1); Sodium Level 139 mmol/L (136-145); Thyroid Stim Hormone (TSH) 2.15 uIU/mL (0.358-3.74); Triglycerides 56 mg/dL; Very Low Density Lipoprotein 11 mg/dL (5-40)
[2020-08-18] MEDS: Acetaminophen 325 MG Tablet 650 MG PO (08:12)
[2020-08-18 08:16] LABS: Hemoglobin A1c 6.1 % (3.8-5.6)
--- NOTE | 2020-08-18 09:32 | CASEMGMT ---
SW spoke w/pt twice already this morning, she states she is waiting to hear back from her daughter in regard to where she would like a referral sent. SW will stop back again shortly. MARTIN Rogers
[2020-08-18] MEDS: Pantoprazole Sodium 40 MG Tablet PO (10:05)
[2020-08-18] MEDS: 0.9% Saline Lock 10 ML Syringe IV ×3 (10:08→22:06)
[2020-08-18] MEDS: Furosemide 40 MG/4 ML Vial IV ×2 (10:08→17:34)
--- NOTE | 2020-08-18 10:19 | CASEMGMT ---
This RN CM to room with GUPTA form at this time, explanation done-pt voices understanding, and signs GUPTA form at this time. Original to chart and copy to pt at this time. Pt provided MCR IP vs OBS booklet at this time as she states that she did not receive one in the ED. Pt states that her daughter would like her to go to [facility] at this time and pt is agreeable as well. Noel VILLARREAL updated, voices understanding. Pt voices no further questions/concerns/needs. SStaten RN CM
--- NOTE | 2020-08-18 10:30 | CASEMGMT ---
RN KEIRY spoke with patient and she wanted [facility]. SW called [facility] with referral and also faxed information. Sagrario ESPINOZA MSW
[2020-08-18] MEDS: Metoprolol Tartrate 50 MG Tablet PO ×2 (11:11→22:06)
[2020-08-18] MEDS: Ferrous Sulfate 325 MG Tablet PO (11:27)
--- NOTE | 2020-08-18 12:49 | CASEMGMT ---
PHIL received a call from Luba with [facility]. She said they can take patient and she will start the pre-cert. PHIL let patient know [facility] can take her and we will wait on insurance to approve her. Plan: [facility] pending insurance approval. Sagrario HA
--- NOTE | 2020-08-18 15:06 | PN_ITS ---
Patient Problems: Active and Suspected Problems (This Medical Record has been edited. Action required.) Atrial fibrillation with RVR (Acute) Subjective: Breathing well. Still with LE edema. Vitals/I&O's: Vital Signs Temp Pulse Resp BP Pulse Ox 37.1 C 94 16 101/48 L 96 08/18/20 11:10 08/18/20 11:11 08/18/20 11:10 08/18/20 11:10 08/18/20 11:10 Oxygen Flow Rate (L/min) 1 Oxygen Delivery Method Nasal Cannula Weight: 158.6 kg Body Mass Index (BMI) 69.6 Intake and Output for Last 24 Hours 08/16/20 08/17/20 08/18/20 23:59 23:59 23:59 Intake Total 360 / 480 540 / 540 Output Total 500 / 1500 1550 / 1550 Balance -140 / -1020 -1010 / -1010 General: Alert, No apparent distress, - - up in chair playing video game on her phone. HEENT: Atraumatic, Normocephalic Oral: Moist Mucosa, No Gingival or Mucosal Lesions/ Ulcerations Neck: No Nodes, Thyroid Normal Size and Texture Lungs: Clear to auscultation, Normal air movement, No rhonchi, No wheeze, No rales Cardiovascular: Regular rate, Regular Rhythm, Normal S1, Normal S2, No murmurs Abdomen: Bowel Sounds Present, Soft, Non Tender, Non-Distended Extremities: No Calf Tenderness, Edema - taut in LE Psych/Mental Status: Normal Affect, Appropriate Laboratory Results 08/18/20 06:06: WBC 4.4, RBC 4.59, Hgb 8.3 L, Hct 32.3 L, MCV 70.4 L, MCH 18.1 L , MCHC 25.7 L, RDW Std Deviation 63.1 H, RDW Coeff of Claudia 25.9 H, Plt Count 260, MPV 10.4, Immature Gran % (Auto) 0.200, Neut % (Auto) 46.3 L, Lymph % (Auto) 31.5, [place] % (Auto) 14.2 H, Eos % (Auto) 6.4 H, Baso % (Auto) 1.4 H, Absolute Neuts (auto) 2.0, Absolute Lymphs (auto) 1.38, Nucleated RBC % 0, Differential Comment SCANNED, Hypochromasia 1+, Anisocytosis 1+, Microcytosis 1+, Macrocytosis RARE, Target Cells RARE, Ovalocytes RARE, Schistocytes RARE 08/18/20 06:06: PT 36.6 H, INR 3.7 08/18/20 06:06: Sodium 139, Potassium 3.9, Chloride 105, Carbon Dioxide 30.0, Anion Gap 4 L, BUN 18, Creatinine 0.98, Estim Creat Clear Calc 43.30, Est GFR (MDRD) Af Amer 74, Est GFR (MDRD) Non-Af 61, BUN/Creatinine Ratio 18.4, Glucose 96, Calcium 8.8, Triglycerides 56, Cholesterol 73, LDL Cholesterol 31, VLDL Cholesterol 11, HDL Cholesterol 31 L, TSH 2.15 08/18/20 06:06: Hemoglobin A1c 6.1 H Current Medications Acetaminophen (Acetaminophen 325 Mg Tablet) 650 mg PO Q6H PRN PRN PRN Reason: Pain Score 1-10/Temp > 100.7 F Last Admin: 08/18/20 08:12 Dose: 650 mg Documented by: Albuterol/Ipratropium (Ipratropium/Albuterol Sulfate 3 Ml Ampul.Neb) 3 ml INHALATION Q6H.RT PRN PRN Reason: SOB/WHEEZING Cholecalciferol (Cholecalciferol (Vit D3) 1,000 Unit (25mcg)) 2,000 unit PO DAILY [facility] Last Admin: 08/18/20 10:05 Dose: 2,000 unit Documented by: Diltiazem HCl (Diltiazem Cd 120 Mg Capsule) 120 mg PO BID [facility] Last Admin: 08/18/20 10:03 Dose: Not Given Documented by: Ferrous Sulfate (Ferrous Sulfate 325 Mg Tablet) 325 mg PO DAILY@1200 [facility] Last Admin: 08/18/20 11:27 Dose: 325 mg Documented by: Furosemide (Furosemide 40 Mg/4 Ml Vial) 40 mg IV BID@1000,1800 [facility] Last Admin: 08/18/20 10:08 Dose: 40 mg Documented by: Lisinopril (Lisinopril 10 Mg Tablet) 10 mg PO DAILY [facility] Last Admin: 08/18/20 10:04 Dose: Not Given Documented by: Metoprolol Tartrate (Metoprolol Tartrate 50 Mg Tablet) 50 mg PO BID [facility] Last Admin: 08/18/20 11:11 Dose: 50 mg Documented by: Morphine Sulfate (Morphine 2 Mg/Ml Syringe) 2 mg IV Q3H PRN PRN PRN Reason: Pain Score 6-10 Nitroglycerin (Nitroglycerin (Inpatient Use) 0.4 Mg Tab.Subl) 0.4 mg SL Q5M PRN PRN Reason: CARDIAC/CHEST PAIN Oxycodone HCl (Oxycodone 5 Mg Tablet) 5 mg PO Q4H PRN PRN PRN Reason: Pain Score 4-5 Pantoprazole Sodium (Pantoprazole Sodium 40 Mg Tablet) 40 mg PO DAILY [facility] Last Admin: 08/18/20 10:05 Dose: 40 mg Documented by: Prochlorperazine Edisylate (Prochlorperazine 10 Mg/2 Ml Vial) 5 mg IV Q4H PRN PRN PRN Reason: Breakthrough Nausea/Vomiting Sodium Chloride (0.9% Saline Lock 10 Ml Syringe) 10 - 40 ml IV UD PRN PRN Reason: SALINE FLUSH Last Admin: 08/18/20 10:08 Dose: 10 ml Documented by: Warfarin Sodium (Warfarin 5 Mg Tablet) 5 mg PO DAILY@1700 [facility] Last Admin: 08/18/20 06:41 Dose: Not Given Documented by: STROKE Vital Signs/Narrative: Vital Signs Temp Pulse Resp BP Pulse Ox 08/18/20 11:11 94 08/18/20 11:10 37.1 C 94 16 101/48 L 96 Medical Necessity - Tobacco Use Smoking Status: Former smoker Assessment/Plan All Active Problems (This Medical Record has been edited. Action required.) Atrial fibrillation with RVR (Acute) Urinary tract infection (Resolved) 1. A. fib with RVR: improved continue with dilt and metoprolol 2. acute HFrEF EF 45% on furosemide IV improving. Weight down from 162 to 158.6kg. Weight back in Jul was 149.2. 3. Obstructive sleep apnea and COPD, chronic right ventricular failure: As per patient she was told her severe COPD. 2D echo also shows mild RV dilatation and moderate pulmonary hypertension, RVSP 55 mmHg. CPAP ordered. Patient is not on home inhaler. Need to follow-up pulmonary clinic after discharge. DuoNeb as needed ordered. 3. Fall with decreasing physical capacities: PT OT and possible SNF placement. 4. History of DVT and PE: Patient on Coumadin. INR 2.9. Coumadin 4 mg today and then 5 mg daily from tomorrow a.m. Monitor INR daily 5. Abnormal UA: No UTI UA shows WBC 5-10 cells, LE 25, nitrite negative. 6. Iron deficiency anemia chronic in nature: During previous hospitalization in July 26, iron work-up suggestive of iron deficiency anemia. Ferrous sulfate 325 mg added. Patient on cobalamin 1000 mcg daily. Vitamin B12 ordered. other multiple chronic comorbidities include GERD, bilateral hip and knee joints DJD, and super morbid obesity 7. VTE prophylaxis: not indicated. anticoagulated. Inpatient E&M: 71935 Subs Hosp L2
[2020-08-18] MEDS: dilTIAZem CD 120 MG Capsule PO (22:06)
[2020-08-19] VITALS (16 sets, daily range): BP systolic 88–99; BP diastolic 34–58; PULSE 85–106; RESP 16–23; TEMP 36.6–37.1; O2SAT 92–100
[2020-08-19] MEDS: oxyCODONE 5 MG Tablet PO ×2 (00:08→17:12)
--- NOTE | 2020-08-19 04:18 | CPS ---
pt not comfortable on our cpap system
[2020-08-19 06:36] LABS: Absolute Lymphocyte Count 1.18 X10^3/uL (0.83-4.51); Absolute Neutrophil Count 2.6 X10^3/uL (2.0-7.7); Basophil# 0.04 X10^3/uL; Basophil% 0.8 % (0-1); Eosinophil# 0.28 X10^3/uL; Eosinophils% 5.8 % (0-5); Hematocrit 33.5 % (37-47); Hemoglobin 8.7 g/dL (12.0-15.0); Lymphocyte # 1.18 X10^3/ul (4.0); Lymphocyte % 24.3 % (19-41); Mean Corpuscular Volume 69.5 fL (81-99); Mean Platelet Vol. 10.2 fl (6.2-12.0); Monocyte# 0.77 X10^3/uL; Monocyte% 15.9 % (0-10); NRBC Flagged by Analyzer 0.4 % (0-5); Neutrophil # 2.56 X10^3/uL (2.7-7.7); Neutrophil % 52.8 % (47-70); POSITIVE MORPHOLOGY YES; Platelet Count 265 K/mm3 (150-450); RBC Distribution Width CV 25.1 % (11.6-14.6); RBC Distribution Width SD 61.1 fl (35.1-43.9); Red Blood Count 4.82 M/mm3 (4.2-5.4); White Blood Count 4.9 K/mm3 (4.4-11.0)
[2020-08-19 06:43] LABS: Differential Indicated SCAN CRITERIA MET
[2020-08-19 06:53] LABS: International Normalized Ratio 2.6; Prothrombin Time (Protime)PT. 27.7 SECONDS (11.7-14.9)
[2020-08-19 06:56] LABS: Anion Gap 4 (5-15); BUN 22 mg/dL (7-18); BUN/Creat Ratio 18.2 RATIO (10-20); Calcium,Total 8.8 mg/dL (8.5-10.1); Chloride 105 mmol/L (98-107); Creatinine, Serum 1.21 mg/dL (0.55-1.02); EST Glomerular Filtration Rate 48 mL/min (>60); Est Glom Filt Rate - Afr Amer 58 mL/min (>60); Estimated Creatinine Clearance 35.07 ml/min; Glucose 95 mg/dL (74-106); Potassium 3.9 mmol/L (3.5-5.1); Sodium Level 140 mmol/L (136-145)
[2020-08-19 07:11] LABS: Anisocytosis 2+; Differential Comment SCANNED; Macrocytosis RARE; Microcytosis 2+
[2020-08-19 07:12] LABS: Hypochromasia 1+; Ovalocyte RARE; Schistocytes RARE
[2020-08-19] MEDS: Pantoprazole Sodium 40 MG Tablet PO (08:56)
[2020-08-19] MEDS: Metoprolol Tartrate 50 MG Tablet PO (10:00)
[2020-08-19] MEDS: Furosemide 40 MG Tablet PO ×2 (10:00→17:13)
[2020-08-19] MEDS: Ferrous Sulfate 325 MG Tablet PO (12:08)
--- NOTE | 2020-08-19 14:30 | RAD_ITS ---
STUDY: X-RAY - LEFT KNEE REASON FOR EXAM: Female, 59 years old. left leg pain TECHNIQUE: 2 view(s) of the knee. COMPARISON: 08/13/2019. FINDINGS: Normal visualized distal femur. Normal visualized proximal tibia and fibula. Normal proximal tibiofibular articulation. There is no demonstrated fracture. There is severe degenerative arthrosis of the medial femorotibial compartment with severe joint space narrowing. There is moderate degenerative arthrosis of the lateral femorotibial compartment with moderate joint space narrowing. There is severe degenerative arthrosis of the patellofemoral articulation. There is no demonstrated joint effusion. The soft tissue structures are grossly unremarkable. RAD/Knee 1 or 2 Views IMPRESSION: No gross fracture or dislocation. Severe degenerative changes probably worse than prior exam. Electronically Signed: Archie Shine MD at 17:56 EDT , Service support ,
--- NOTE | 2020-08-19 14:30 | RAD_ITS ---
STUDY: X-RAY - PELVIS AND LEFT HIP REASON FOR EXAM: Female, 59 years old. left leg pain TECHNIQUE: 3 views of the pelvis and hip. COMPARISON: None. FINDINGS: There is a non-specific bowel gas pattern. Normal visualized soft tissue structures. Normal bilateral iliac wings, sacroiliac joints and visualized sacrum. Normal bilateral superior and inferior pubic rami. Normal pubic symphysis. Normal bilateral ischial tuberosities. Normal visualized femoral head. Normal acetabulum. Normal hip joint. RAD/HIP, UNI W/ Pelvis 2-3 Views IMPRESSION: Normal x-ray examination of the pelvis and hip. Electronically Signed: Archie Shine MD at 17:52 EDT , Service support ,
--- NOTE | 2020-08-19 15:13 | PCM.PN.HOSP ---
Patient Problems: Active and Suspected Problems (This Medical Record has been edited. Action required.) Atrial fibrillation with RVR (Acute) Subjective: complains of pain in left leg after her fall. difficult to move her leg. Vitals/I&O's: Vital Signs Temp Pulse Resp BP Pulse Ox 36.7 C 88 18 99/56 L 92 08/19/20 11:45 08/19/20 11:45 08/19/20 11:45 08/19/20 11:45 08/19/20 11:45 Oxygen Flow Rate (L/min) 1 Oxygen Delivery Method Room Air Weight: 157.3 kg Body Mass Index (BMI) 69.6 Intake and Output for Last 24 Hours 08/17/20 08/18/20 08/19/20 23:59 23:59 23:59 Intake Total 360 / 480 900 / 1000 340 / 340 Output Total 500 / 1500 1550 / 1850 300 / 300 Balance -140 / -1020 -650 / -850 40 / 40 General: Alert, No apparent distress HEENT: Atraumatic, Normocephalic Oral: Moist Mucosa, No Gingival or Mucosal Lesions/ Ulcerations Neck: No Nodes, Thyroid Normal Size and Texture Lungs: Clear to auscultation, Normal air movement, No rhonchi, No wheeze, No rales Cardiovascular: Regular rate, Regular Rhythm, Normal S1, Normal S2, No murmurs Abdomen: Bowel Sounds Present, Soft, Non Tender, Non-Distended, Obese Extremities: No Calf Tenderness, Edema Musculoskeletal: - - FROM passive movement in left knee and hip. difficult to assess for knee effusion given body habitus. Microbiology Past 72 Hours 08/19/20 09:40 Mucosa - Nose SARS-CoV-2 Antigen (Rapid) - Final Laboratory Results 08/19/20 06:12: PT 27.7 H, INR 2.6 08/19/20 06:12: WBC 4.9, RBC 4.82, Hgb 8.7 L, Hct 33.5 L, MCV 69.5 L, MCH 18.0 L, MCHC 26.0 L, RDW Std Deviation 61.1 H, RDW Coeff of Claudia 25.1 H, Plt Count 265, MPV 10.2, Immature Gran % (Auto) 0.400, Neut % (Auto) 52.8, Lymph % (Auto) 24.3, [place] % (Auto) 15.9 H, Eos % (Auto) 5.8 H, Baso % (Auto) 0.8, Absolute Neuts (auto) 2.6, Absolute Lymphs (auto) 1.18, Nucleated RBC % 0.4, Differential Comment SCANNED, Hypochromasia 1+, Anisocytosis 2+, Microcytosis 2+, Macrocytosis RARE, Ovalocytes RARE, Schistocytes RARE 08/19/20 06:12: Sodium 140, Potassium 3.9, Chloride 105, Carbon Dioxide 31.0, Anion Gap 4 L, BUN 22 H, Creatinine 1.21 H, Estim Creat Clear Calc 35.07, Est GFR (MDRD) Af Amer 58 L, Est GFR (MDRD) Non-Af 48 L, BUN/Creatinine Ratio 18.2, Glucose 95, Calcium 8.8 Current Medications Acetaminophen (Acetaminophen 325 Mg Tablet) 650 mg PO Q6H PRN PRN PRN Reason: Pain Score 1-10/Temp > 100.7 F Last Admin: 08/18/20 08:12 Dose: 650 mg Documented by: Albuterol/Ipratropium (Ipratropium/Albuterol Sulfate 3 Ml Ampul.Neb) 3 ml INHALATION Q6H.RT PRN PRN Reason: SOB/WHEEZING Cholecalciferol (Cholecalciferol (Vit D3) 1,000 Unit (25mcg)) 2,000 unit PO DAILY [facility] Last Admin: 08/19/20 08:56 Dose: 2,000 unit Documented by: Diltiazem HCl (Diltiazem Cd 120 Mg Capsule) 120 mg PO BID [facility] Last Admin: 08/19/20 09:49 Dose: Not Given Documented by: Ferrous Sulfate (Ferrous Sulfate 325 Mg Tablet) 325 mg PO DAILY@1200 [facility] Last Admin: 08/19/20 12:08 Dose: 325 mg Documented by: Furosemide (Furosemide 40 Mg Tablet) 40 mg PO BID@1000,1800 [facility] Last Admin: 08/19/20 10:00 Dose: 40 mg Documented by: Lisinopril (Lisinopril 10 Mg Tablet) 10 mg PO DAILY [facility] Last Admin: 08/19/20 09:49 Dose: Not Given Documented by: Metoprolol Tartrate (Metoprolol Tartrate 50 Mg Tablet) 50 mg PO BID [facility] Last Admin: 08/19/20 10:00 Dose: 50 mg Documented by: Nitroglycerin (Nitroglycerin (Inpatient Use) 0.4 Mg Tab.Subl) 0.4 mg SL Q5M PRN PRN Reason: CARDIAC/CHEST PAIN Oxycodone HCl (Oxycodone 5 Mg Tablet) 5 mg PO Q4H PRN PRN PRN Reason: Pain Score 4-5 Last Admin: 08/19/20 00:08 Dose: 5 mg Documented by: Pantoprazole Sodium (Pantoprazole Sodium 40 Mg Tablet) 40 mg PO DAILY [facility] Last Admin: 08/19/20 08:56 Dose: 40 mg Documented by: Prochlorperazine Edisylate (Prochlorperazine 10 Mg/2 Ml Vial) 5 mg IV Q4H PRN PRN PRN Reason: Breakthrough Nausea/Vomiting Sodium Chloride (0.9% Saline Lock 10 Ml Syringe) 10 - 40 ml IV UD PRN PRN Reason: SALINE FLUSH Last Admin: 08/18/20 22:06 Dose: 10 ml Documented by: Warfarin Sodium (Warfarin 5 Mg Tablet) 5 mg PO DAILY@1700 [facility] Last Admin: 08/18/20 06:41 Dose: Not Given Documented by: STROKE Vital Signs/Narrative: Vital Signs Temp Pulse Resp BP Pulse Ox 08/19/20 11:45 36.7 C 88 18 99/56 L 92 Medical Necessity - Tobacco Use Smoking Status: Former smoker Assessment/Plan All Active Problems (This Medical Record has been edited. Action required.) Atrial fibrillation with RVR (Acute) Urinary tract infection (Resolved) 1. A. fib with RVR: improved continue with dilt and metoprolol 2. acute HFrEF EF 45% change to PO furosemide improving. Weight down from 162 to 157.3kg. Weight back in Jul was 149.2. 3. Obstructive sleep apnea and COPD, chronic right ventricular failure: As per patient she was told her severe COPD. 2D echo also shows mild RV dilatation and moderate pulmonary hypertension, RVSP 55 mmHg. CPAP ordered. Patient is not on home inhaler. Need to follow-up pulmonary clinic after discharge. DuoNeb as needed ordered. 3. Fall with decreasing physical capacities: PT OT and possible SNF placement. reviewed xray of knee and hip on left--no obvious fracture (rad read pending) 4. History of DVT and PE: Patient on Coumadin. INR 2.6. Coumadin 5 mg daily from tomorrow a.m. Monitor INR daily 5. Abnormal UA: No UTI UA shows WBC 5-10 cells, LE 25, nitrite negative. 6. Iron deficiency anemia chronic in nature: During previous hospitalization in July 26, iron work-up suggestive of iron deficiency anemia. Ferrous sulfate 325 mg added. Patient on cobalamin 1000 mcg daily. Vitamin B12 ordered. other multiple chronic comorbidities include GERD, bilateral hip and knee joints DJD, and super morbid obesity 7. VTE prophylaxis: not indicated. anticoagulated. 8. Debility: plan for SNF. Awaiting on precert. Inpatient E&M: 47987 Subs Hosp L2
--- NOTE | 2020-08-19 16:18 | CASEMGMT ---
PHIL called Luba at [facility] and told her to call the Progressive Care [facility] if she would get pre-cert for patient. PHIL placed a green sheet on patient's chart should pre-cert come through. Sagrario HA
[2020-08-19] MEDS: Acetaminophen 325 MG Tablet 650 MG PO (17:12)
[2020-08-19] MEDS: Nystatin Powder 15gm Bottle 1 APPLIC TOPICAL (22:51)
--- NOTE | 2020-08-19 23:25 | CPS ---
Patient refused to take dentures out while on CPAP. She said that she never takes her dentures out at home. DYE PENETRANT TESTING TECHNICIAN explained to patient the risk associated with wearing dentures while on any form of PAP (aspiration risk). Patient understands this information and still refuses to take dentures out. Patient is on lower level of CPAP of 7. DYE PENETRANT TESTING TECHNICIAN will monitor patient for denture loosing to prevent chance of aspiration while on CPAP.
[2020-08-20] VITALS (7 sets, daily range): BP systolic 94–109; BP diastolic 49–71; PULSE 91–105; RESP 18–20; TEMP 36.3–36.8; O2SAT 95–98
[2020-08-20 06:30] LABS: International Normalized Ratio 2.9
[2020-08-20] MEDS: Metoprolol Tartrate 50 MG Tablet PO (09:28)
[2020-08-20] MEDS: dilTIAZem CD 120 MG Capsule PO (09:28)
[2020-08-20] MEDS: Pantoprazole Sodium 40 MG Tablet PO (09:28)
[2020-08-20] MEDS: Nystatin Powder 15gm Bottle 1 APPLIC TOPICAL (09:29)
[2020-08-20] MEDS: Furosemide 40 MG Tablet PO (09:29)
--- NOTE | 2020-08-20 10:54 | CASEMGMT ---
PHIL received a call from Luba at [facility] and she got approval for patient. PHIL notified patient, RN, and discharge planner. PHIL will notify physician. Sagrario HA
[2020-08-20] MEDS: Acetaminophen 325 MG Tablet 650 MG PO (12:02)
[2020-08-20] MEDS: oxyCODONE 5 MG Tablet PO (12:02)
[2020-08-20] MEDS: Ferrous Sulfate 325 MG Tablet PO (12:03)
--- NOTE | 2020-08-20 13:18 | PCM.TXEXTCAR ---
- Diet 08/17/20 06:28 Diet: Cardiac: Calorie-Controlled Food consistency:: Regular Liquid Consistency:: Regular/Thin How many daily calories?: 1800 calorie 1500cc fluid per day, maximum - Routine Orders/Code Status Routine Lab Work: CBC - Weekly, BMP - Weekly, INR - Mondays and Code Status: Full Code - Wound(s) left hip/upper leg Wound Type: blister left knee/lower leg Wound Type: blister - Therapies Physical Therapy: Eval and Treat Occupational Therapy: Eval and Treat - Allergies/Procedures Done in Hospital Allergies/Adverse Reactions: Allergies enoxaparin [From Lovenox] Allergy (Severe, Verified 08/17/20 02:14) Rash & Itching green tea Allergy (Intermediate, Verified 08/17/20 02:14) Itching peaches Allergy (Severe, Uncoded 08/17/20 02:14) Unknown - Type of Care/Length of Stay Estimated LOS: Convalescent Care Less Than 30 days Type of Care Needed: Skilled Rehab Potential: Fair Prognosis: Fair - Additional Orders/Day of Discharge Day of Discharge: 08/20/20 - Dietary and Speech Recommendations Dietitian Recommendations/Changes: Continue 1800 calorie/cardiac diet. Diet ed as pt requests and willing. PCP referral to [facility] Why Weight program when ready for lifestyle change. - Follow Up Care Primary Care Physician: Counseling,Center [GROUP OF PHYSICIANS] - 1-2 Weeks Yossi Noriega MD [STAFF PHYSICIAN] - 1-2 Weeks Emily Husain MD [Primary Care Provider] - As Needed
--- NOTE | 2020-08-20 13:58 | CASEMGMT ---
Addendum entered by Sagrario Philip 08/20/20 14:28: Patient is now getting picked up at 3p. SW notified Luba at [facility]. pocket secretary assembler notified RN. Sagrario HA Original Note: PHIL faxed discharge instructions to [facility]. Completed convalescent on [facility]. PHIL arranged for patient to get picked up by [facility] via [facility]ric [facility]c at 4p. SW notified RN, pocket secretary assembler, patient, and Luba with [facility]. Patient said she already notified her daughter. Plan: d/c to [facility] under skilled level of care on a convalescent stay. [facility] transported her via bariatric wheelchair. Sagrario ESPINOZA MSW
--- NOTE | 2020-08-20 14:45 | PHA.DC.MR ---
Pharmacy Service has performed discharge medication reconciliation for this patient upon transfer to [facility]. Home Medications Circulation Vein Support PO 07/05/19 acetaminophen 325 mg tablet 650 mg PO BID PRN tab 07/05/19 calcium carb-magnesium carb PO 07/05/19 cholecalciferol (vitamin D3) 125 mcg (5,000 unit) capsule 2,000 mcg PO DAILY 07/05/19 warfarin 5 mg tablet 5 mg PO DAILY #90 tab 07/06/19 lisinopril 20 mg tablet 20 mg PO DAILY #90 tab 07/09/19 pantoprazole 40 mg tablet,delayed release 40 mg PO DAILY #90 tab 04/08/20 Diltiazem CD [Cardizem CD] 120 mg PO DAILY #30 cap 07/21/20 Metoprolol Tartrate [Lopressor (beta sowmya)] 50 mg PO BID #90 tab 07/21/20 Ferrous Sulfate 325 mg PO QODAY tablet 08/20/20 Furosemide [Lasix] 40 mg PO BID@1000,1800 tablet 08/20/20 Nystatin Powder [Mycostatin Powder] 1 applic TOPICAL BID bottle 08/20/20 Potassium Chloride Oral Tablet [K-Dur] 20 meq PO DAILY #30 tablet 08/20/20 The patient's discharge medication list was reviewed for discrepancies and discrepancies were resolved.
--- NOTE | 2020-08-20 15:12 | NURSING ---
report called to [facility]
--- NOTE | 2020-08-20 15:29 | NURSING ---
report called to [facility]
--- NOTE | 2020-08-20 15:38 | DS.PCM_ITS ---
Discharge Date and Diagnosis - Problem List Patient Problems: Active and Suspected Problems (This Medical Record has been edited. Action required.) Atrial fibrillation with RVR (Acute) Date of Admission: 08/17/20 Date of Discharge: 08/20/20 - Primary Discharge Diagnosis Acute Problems: Active Problems (This Medical Record has been edited. Action required.) Atrial fibrillation with RVR (Acute) acute HFrEF debility - Secondary Discharge Diagnosis Chronic Problems: Chronic Problems (This Medical Record has been edited. Action required.) Morbid obesity with BMI of 60.0-69.9, adult (Chronic) Pulmonary embolism (Chronic) 2008 GERD (gastroesophageal reflux disease) (Chronic) High blood pressure (Chronic) Carpal tunnel syndrome (Chronic) Arthritis (Chronic) Allergies (Chronic) Hospital Course and Treatment Imaging Results: Clinical Impression(s) from Imaging Studies Brain CT 08/17/20 02:14 IMPRESSION: Atrophy no evidence of acute hemorrhage or infarct or edema. Electronically Signed: Annette Linares MD at 2:57 EDT Tel , Service support , Cervical Spine CT 08/17/20 02:14 IMPRESSION: Advanced Degenerative change of the cervical spine. Multilevel neural foramina narrowing moderate to severe neural foraminal narrowing and central stenosis C5-C6 C6-C7. When possible recommend consideration for follow-up MRI of the cervical spine. No Visualized acute fracture. Electronically Signed: Annette Linares MD at 3:44 EDT Tel , Service support , Hip/Pelvis X-Ray 08/19/20 14:30 IMPRESSION: Normal x-ray examination of the pelvis and hip. Electronically Signed: Archie Shine MD at 17:52 EDT , Service support , Knee X-Ray 08/19/20 14:30 IMPRESSION: No gross fracture or dislocation. Severe degenerative changes probably worse than prior exam. Electronically Signed: Archie Shine MD at 17:56 EDT , Service support , Operations: None Procedures: None Summary of Care Provided: The patient is a 59 year old F presents after a fall. Patient was try to get up from urinating lost control and fell and hit her head. No loss consciousness. Patient was evaluated emergency room and found to be in A. fib with RVR with a heart rate of 124. Patient received oral metoprolol as well as diltiazem. Heart rate did improve and those medications were continued. For the fall patient had head and cervical spine CT that were unremarkable. Additionally patient was later complaining of left leg pain and x-ray of her hip and knee were negative for any fracture though she did have significant arthritis of her knee. Patient was treated for heart failure. Patient previous diagnosis of heart failure reduced ejection fraction with EF of 45%. Patient was on IV furosemide and is eventually transitioned over to oral. Patient still has lower extremity edema. Discussed with the patient that its made of continue diuresis but also fluid restriction to prevent increased fluid retention. Patient may benefit from further evaluation with polysomnogram for evaluation for sleep apnea. Because of the patient's fall, patient was seen by therapy recommend additional therapy. Will be discharged to [facility] in stable condition.[] Patient Problems: Active and Suspected Problems (This Medical Record has been edited. Action required.) Atrial fibrillation with RVR (Acute) - Physical Exam Vitals/I&O's: Vital Signs Temp Pulse Resp BP Pulse Ox 36.6 C 100 18 109/71 95 08/20/20 14:36 08/20/20 14:36 08/20/20 14:36 08/20/20 14:36 08/20/20 14:36 Oxygen Flow Rate (L/min) 2 Oxygen Delivery Method Room Air Weight: 158.2 kg Body Mass Index (BMI) 69.6 Intake and Output for Last 24 Hours 08/18/20 08/19/20 08/20/20 23:59 23:59 23:59 Intake Total 900 / 1000 580 / 630 410 / 410 Output Total 1550 / 1850 300 / 300 Balance -650 / -850 280 / 330 410 / 410 General: Alert, No apparent distress HEENT: Atraumatic, Normocephalic Oral: Moist Mucosa, No Gingival or Mucosal Lesions/ Ulcerations Neck: No Nodes, Thyroid Normal Size and Texture Lungs: Clear to auscultation, Normal air movement, No rhonchi, No wheeze, No rales Cardiovascular: Regular rate, Regular Rhythm, Normal S1, Normal S2, No murmurs Abdomen: Bowel Sounds Present, Soft, Non Tender, Non-Distended Extremities: No Calf Tenderness, Edema Microbiology Past 72 Hours 08/17/20 03:15 Urine, Clean Catch Urine Culture - Final Culture exhibits no growth. 08/19/20 09:40 Mucosa - Nose SARS-CoV-2 Antigen (Rapid) - Final Laboratory Results 08/20/20 06:08: PT 30.0 H, INR 2.9 Discharge Diet: Low fat/ Low Cholesterol, - - 1500cc fluid per day Discharge Activity: Return to Normal Activity, No Restrictions Home Medications: Medications to take at Discharge Circulation Vein Support PO 07/05/19 acetaminophen 325 mg tablet 650 mg PO BID PRN tab 07/05/19 calcium carb-magnesium carb PO 07/05/19 cholecalciferol (vitamin D3) 125 mcg (5,000 unit) capsule 2,000 mcg PO DAILY 07/05/19 warfarin 5 mg tablet 5 mg PO DAILY #90 tab 07/06/19 lisinopril 20 mg tablet 20 mg PO DAILY #90 tab 07/09/19 pantoprazole 40 mg tablet,delayed release 40 mg PO DAILY #90 tab 04/08/20 Diltiazem CD [Cardizem CD] 120 mg PO DAILY #30 cap 07/21/20 Metoprolol Tartrate [Lopressor (beta sowmya)] 50 mg PO BID #90 tab 07/21/20 Ferrous Sulfate 325 mg PO QODAY tablet 08/20/20 Furosemide [Lasix] 40 mg PO BID@1000,1800 tablet 08/20/20 Nystatin Powder [Mycostatin Powder] 1 applic TOPICAL BID bottle 08/20/20 Potassium Chloride Oral Tablet [K-Dur] 20 meq PO DAILY #30 tablet 08/20/20 Following Prescriptions Were Given to Patient: Potassium Chloride Oral Tablet [K-Dur] 20 meq PO DAILY #30 tablet Primary Care Physician: [facility]GROUP OF PHYSICIANS] - 1-2 Weeks Yossi Noriega MD [STAFF PHYSICIAN] - 1-2 Weeks Emily Husain MD [Primary Care Provider] - As Needed Patient Instructions: ED Bladder Infection, Female (Adult), ED Fall Prevention, ED Wound Care Disposition: Home Minutes spent on discharge:: 32 Medical Necessity - Tobacco Use Smoking Status: Former smoker Meaningful Use Info Meaningful Use Diagnoses (Choose all that apply): CHF - CHF TORIBIO/ARB ordered at discharge?: Yes Documented LVEF (%): 45 Inpatient E&M: 36619 Disch Hosp
== END 2020-08-20 13:19 | disposition skilled nursing facility (03) ==
LOC: ED 05:55 → PCU 06:22
PROVIDERS: Admitting Provider Internal Medicine; Emergency Provider Emergency Medicine; PCP Internal Medicine
DX: I48.91 Unspecified atrial fibrillation (principal); I50.21 Acute systolic (congestive) heart failure; I50.82 Biventricular heart failure; E66.01 Morbid (severe) obesity due to excess calories; I11.0 Hypertensive heart disease with heart failure; N39.0 Urinary tract infection, site not specified; N39.41 Urge incontinence; M19.90 Unspecified osteoarthritis, unspecified site; I45.10 Unspecified right bundle-branch block; J44.9 Chronic obstructive pulmonary disease, unspecified; K21.9 Gastro-esophageal reflux disease without esophagitis; I27.29 Other secondary pulmonary hypertension; G47.33 Obstructive sleep apnea (adult) (pediatric); D50.9 Iron deficiency anemia, unspecified; Z79.899 Other long term (current) drug therapy; Z79.01 Long term (current) use of anticoagulants; Z86.718 Personal history of other venous thrombosis and embolism; Z86.711 Personal history of pulmonary embolism; Z87.891 Personal history of nicotine dependence; Z68.44 Body mass index [BMI] 60.0-69.9, adult
CPT/HCPCS: 36415; 70450; 72125; 73502; 73560; 80048; 80061; 80307; 81001; 82077; 82607; 83036; 83735; 83880; 84443; 84484; 85025; 85610; 85730; 87086; 87426; 93005; 94660; 96374; 96376; 97110; 97116; 97162; 97166; 97535; 97802; 99218; 99285; A4216; G0378; J1940

== ENCOUNTER 2020-11-13 17:15 | Observation (INO) | payer MEDICARE, SELFPAY ==
[2020-08-17 06:29] VITALS: BMI 69.6
[2020-11-13] VITALS (8 sets, daily range): BP systolic 89–126; BP diastolic 56–69; PULSE 89–114; RESP 18–22; TEMP 36.2–36.8; O2SAT 94–100; BMI 74.2; BMI 72.0
--- NOTE | 2020-11-13 17:45 | EKG12_ITS ---
Test Reason : GENERAL ILLNESS Blood Pressure : / mmHG Vent. Rate : 110 BPM Atrial Rate : 100 BPM P-R Int : 000 ms QRS Dur : 100 ms QT Int : 296 ms P-R-T Axes : 000 087 011 degrees QTc Int : 400 ms Atrial fibrillation Low voltage QRS Nonspecific T wave abnormality Abnormal ECG Confirmed by BEST STEWART, SAI ([id number]), publications editor BENJI TONG ([id number]) on 11/16/2020 1:38:00 PM Referred By: Confirmed By:SAI JEWELL MD
--- NOTE | 2020-11-13 17:46 | EDS_ITS ---
HPI History of Present Illness Chief Complaint: General Illness Informant: patient Onset/Context/Timing Onset: Days Current Severity: Moderate Maximum Severity: Moderate Narrative Narrative: Patient presents secondary to generalized weakness. Per daughter patient's had a gradual decline for quite some time in the last 4 days has not gotten out of bed. Patient complains of pain through her abdomen and left leg. She states this has been present since she was last admitted to the hospital in August. She denies fever. Daughter states that she called patient's primary care physician today. She wants the patient to be admitted and placed in a rehab facility to get her strength back. [facility] Medical History Arthritis Blood clot in vein Carpal tunnel syndrome GERD (gastroesophageal reflux disease) History of left heart catheterization (LHC) (~07/20/20) Pulmonary embolism Home Medications Circulation Vein Support PO 07/05/19 [History Last Taken Unknown] acetaminophen 325 mg tablet 650 mg PO BID PRN tab 07/05/19 [History Last Taken Unknown] calcium carb-magnesium carb PO 07/05/19 [History Last Taken Unknown] cholecalciferol (vitamin D3) 125 mcg (5,000 unit) capsule 2,000 mcg PO DAILY 07/05/19 [History Last Taken 07/17/20] lisinopril 20 mg tablet 20 mg PO DAILY #90 tab 07/09/19 [Rx Last Taken 07/16/20] pantoprazole 40 mg tablet,delayed release 40 mg PO DAILY #90 tab 04/08/20 [Rx Last Taken 07/16/20] nystatin 1 applic TOPICAL BID bottle 08/20/20 [Rx Last Taken Unknown] potassium chloride 20 meq PO DAILY #30 tablet 08/20/20 [Rx Last Taken Unknown] diltiazem HCl 120 mg capsule,extended release 24 hr 120 mg PO DAILY #30 cap 10/16/20 [Rx Last Taken Unknown] metoprolol tartrate 50 mg tablet 50 mg PO BID #60 tab 10/16/20 [Rx Last Taken Unknown] warfarin 5 mg tablet 5 mg PO DAILY #30 tab 10/16/20 [Rx Last Taken Unknown] ferrous sulfate 325 mg PO DAILY 11/13/20 [History Last Taken Unknown] omega-3 fatty acids [Fish Oil] 1,000 mg PO DAILY 11/13/20 [History Last Taken Unknown] vitamin B complex [B Complex-Vitamin B12] 1 tab PO DAILY 11/13/20 [History Last Taken Unknown] Allergy/AdvReac Type Severity Reaction Status Date / Time enoxaparin [From Lovenox] Allergy Severe Rash & Verified 11/13/20 17:16 Itching green tea Allergy Intermediate Itching Verified 11/13/20 17:16 peaches Allergy Severe Unknown Uncoded 11/13/20 17:16 Family History Mother Diabetes High cholesterol Father Diabetes Heart disease Hypertension Sister Diabetes High cholesterol Brother Diabetes Surgical History History of cholecystectomy History of oral surgery Social History Smoking Status: Former smoker alcohol intake: never substance use type: does not use what type of physical activity do you participate in: none ROS ROS ED Constitutional Constitutional ED: Reports chills; Denies fever(s) Eyes Eyes: Denies change in vision ENT ENT ED: Denies sore throat Cardiovascular Cardiovascular: Denies chest pain Respiratory/Chest Respiratory/Chest: Denies cough or dyspnea Gastrointestinal Gastrointestinal: Reports abdominal pain; Denies diarrhea, nausea or vomiting Genitourinary Genitourinary ED: Denies dysuria Musculoskeletal Musculoskeletal: Reports arthralgias; Denies back pain Integumentary Denies rash Neurologic Neurologic: Denies headache(s) or weakness Psychiatric Psychiatric: Denies anxiety or depression Endocrine Endocrinology: Denies polydipsia or polyuria Allergic/Immunologic Allergic/Immunologic ED: Denies urticaria EXAM Physical Exam Const Vital Signs: 11/13/20 17:16 11/13/20 17:43 11/13/20 18:51 Temperature 97.4 F L 97.1 F L Temperature Source Temporal Temporal Pulse Rate 114 H 114 H Respiratory Rate 18 20 H Respiratory Effort Normal Non-Labored Respiratory Pattern Normal Blood Pressure 99/63 103/65 Blood Pressure Mean 75 77 Pulse Ox 95 100 Oxygen Delivery Method Nasal Cannula Nasal Cannula Oxygen Flow Rate (L/min) 3 3 11/13/20 19:30 Temperature 97.6 F L Temperature Source Temporal Pulse Rate 104 H Respiratory Rate 20 H Respiratory Effort Respiratory Pattern Blood Pressure 100/56 L Blood Pressure Mean 70 Pulse Ox 96 Oxygen Delivery Method Nasal Cannula Oxygen Flow Rate (L/min) 3 Positive well nourished and well developed General Appearance ED: well developed HEENT Reports normocephalic and head/scalp atraumatic Eyes PERRL and EOMs intact bilaterally Neck supple Chest Wall inspection of chest normal and palpation of chest normal Resp normal respiratory effort and clear to auscultation bilaterally Cardio regular rhythm Rate: tachycardic GI normal to inspection, nondistended, normoactive bowel sounds and non-tender Palpation: soft Extremity General Extremety ED: Yes edema General Extremity: edema Neuro oriented x3 Neuro Narrative: Generalized weakness throughout. No focal deficits noted. Sensorium / Orientation: alert Psych mental status grossly normal MDM MDM MDM Narrative Medical decision making narrative: Patient was placed on quality assurance monitor final. Labs, urine, EKG obtained. She is given a 500 cc IV fluid bolus. Lab Data Labs: Laboratory Results - last 24 hr 11/13/20 11/13/20 11/13/20 18:00 18:00 18:00 WBC 4.0 L RBC 4.62 Hgb 9.3 L Hct 34.6 L MCV 74.9 L MCH 20.1 L MCHC 26.9 L RDW Std Deviation 59.0 H RDW Coeff of Claudia 22.3 H Plt Count 233 MPV 9.8 Immature Gran % (Auto) 0.300 Neut % (Auto) 73.6 H Lymph % (Auto) 12.5 L [place] % (Auto) 10.5 H Eos % (Auto) 2.3 Baso % (Auto) 0.8 Absolute Neuts (auto) 2.9 Absolute Lymphs (auto) 0.50 L Nucleated RBC % 0.5 Differential Comment Diff Path Review May foll Hypochromasia 2+ Anisocytosis 1+ Target Cells 1+ Ovalocytes 1+ PT 76.3 H INR 9.5 H* Sodium 141 Potassium 3.8 Chloride 106 Carbon Dioxide 30.0 Anion Gap 5 BUN 21 H Creatinine 0.81 Estim Creat Clear Calc 51.73 Est GFR (MDRD) Af Amer 92 Est GFR (MDRD) Non-Af 76 BUN/Creatinine Ratio 25.8 H Glucose 121 H Calcium 9.4 Urine Color Urine Clarity Urine pH Ur Specific [place] Urine Protein Urine Glucose (UA) Urine Ketones Urine Occult Blood Urine Nitrite Urine Bilirubin Urine Urobilinogen Ur Leukocyte Esterase Urine RBC Urine WBC Ur Squamous Epith Cells Uric Acid Crystals Urine Bacteria Hyaline Casts Urine Mucus 11/13/20 18:45 WBC RBC Hgb Hct MCV MCH MCHC RDW Std Deviation RDW Coeff of Claudia Plt Count MPV Immature Gran % (Auto) Neut % (Auto) Lymph % (Auto) [place] % (Auto) Eos % (Auto) Baso % (Auto) Absolute Neuts (auto) Absolute Lymphs (auto) Nucleated RBC % Differential Comment Diff Path Review Hypochromasia Anisocytosis Target Cells Ovalocytes PT INR Sodium Potassium Chloride Carbon Dioxide Anion Gap BUN Creatinine Estim Creat Clear Calc Est GFR (MDRD) Af Amer Est GFR (MDRD) Non-Af BUN/Creatinine Ratio Glucose Calcium Urine Color Gwen Urine Clarity Clear Urine pH 5.0 Ur Specific [place] 1.030 Urine Protein 100 H Urine Glucose (UA) Normal Urine Ketones 15 H Urine Occult Blood 10 H Urine Nitrite Positive H Urine Bilirubin 3 H Urine Urobilinogen 12 H Ur Leukocyte Esterase 25 H Urine RBC 0 SEEN Urine WBC 0-5 SEEN Ur Squamous Epith Cells 0-5 SEEN Uric Acid Crystals RARE Urine Bacteria 0 SEEN Hyaline Casts 0-5 SEEN Urine Mucus 3+ EKG Initial EKG: Attestation: I personally reviewed and interpreted this EKG as follows: Interpretation: Atrial Fibrillation (A. fib at 110. No acute ST change.) Treatment and Re-Evaluation Comments:: Following 500 cc bolus blood pressure improved to 100-105 systolic. Lab work is reviewed. INR significantly elevated at 9.5. She has no obvious source of bleeding and hemoglobin is actually improved when compared to prior. Urinalysis does show positive nitrites, however 0 bacteria and 0-5 white cells. This will be sent for a culture. When I went back to talk with the patient blood pressure again has dropped now that the fluid bolus has ended. She will be given an additional 500 cc fluid bolus and admitted for further treatment and placement. Discharge Plan Triage Chief Complaint: General Illness ED Provider: Angela Garcia Dx/Rx/DC Orders Clinical Impression: Supratherapeutic INR, Generalized weakness Prescriptions: No Action Circulation Vein Support PO RF: 0 cholecalciferol (vitamin D3) 125 mcg (5,000 unit) capsule 2,000 mcg PO DAILY RF: 0 calcium carb-magnesium carb PO RF: 0 acetaminophen [Tylenol] 325 mg tablet 650 mg PO BID PRN (Reason: Pain 1-10 Or Fever) RF: 0 nystatin 1 APPLIC bottle 1 applic TOPICAL BID RF: 0 potassium chloride 20 MEQ tablet 20 meq PO DAILY Qty: 30 RF: 0 Fish Oil Capsule 1,000 mg PO DAILY RF: 0 ferrous sulfate 325 MG tablet 325 mg PO DAILY RF: 0 vitamin B complex [B Complex-Vitamin B12] Tablet 1 tab PO DAILY RF: 0 lisinopril 20 mg tablet 20 mg PO DAILY Qty: 90 RF: 3 pantoprazole 40 mg tablet,delayed release (DR/EC) 40 mg PO DAILY Qty: 90 RF: 3 metoprolol tartrate 50 mg tablet 50 mg PO BID Qty: 60 RF: 0 warfarin 5 mg tablet 5 mg PO DAILY Qty: 30 RF: 0 diltiazem HCl 120 mg capsule,extended release 24hr 120 mg PO DAILY Qty: 30 RF: 0 Primary Care Provider: Emily Husain Referrals: Emily Husain MD [Primary Care Provider] - Disposition Disposition: Acute Care Hospital [facility]
[2020-11-13 18:13] LABS: Absolute Neutrophil Count 2.9 X10^3/uL (2.0-7.7); Basophil# 0.03 X10^3/uL; Basophil% 0.8 % (0-1); Eosinophil# 0.09 X10^3/uL; Eosinophils% 2.3 % (0-5); Hematocrit 34.6 % (37-47); Hemoglobin 9.3 g/dL (12.0-15.0); Lymphocyte % 12.5 % (19-41); Mean Corp Hgb Conc 26.9 g/dL (32-36); Mean Corpuscular Hgb 20.1 pg (27.0-32.0); Mean Corpuscular Volume 74.9 fL (81-99); Mean Platelet Vol. 9.8 fl (6.2-12.0); Monocyte# 0.42 X10^3/uL; Monocyte% 10.5 % (0-10); NRBC Flagged by Analyzer 0.5 % (0-5); Neutrophil # 2.94 X10^3/uL (2.7-7.7); Neutrophil % 73.6 % (47-70); POSITIVE DIFFERENTIAL YES; POSITIVE MORPHOLOGY YES; Platelet Count 233 K/mm3 (150-450); RBC Distribution Width CV 22.3 % (11.6-14.6); Red Blood Count 4.62 M/mm3 (4.2-5.4)
[2020-11-13 18:14] LABS: Differential Indicated SCAN CRITERIA MET
[2020-11-13 18:24] LABS: Anion Gap 5 (5-15); BUN 21 mg/dL (7-18); BUN/Creat Ratio 25.8 RATIO (10-20); Calcium,Total 9.4 mg/dL (8.5-10.1); Chloride 106 mmol/L (98-107); Creatinine, Serum 0.81 mg/dL (0.55-1.02); EST Glomerular Filtration Rate 76 mL/min (>60); Est Glom Filt Rate - Afr Amer 92 mL/min (>60); Estimated Creatinine Clearance 51.73 ml/min; Glucose 121 mg/dL (74-106); Potassium 3.8 mmol/L (3.5-5.1); Sodium Level 141 mmol/L (136-145)
[2020-11-13 18:25] LABS: Prothrombin Time (Protime)PT. 76.3 SECONDS (11.7-14.9)
[2020-11-13 18:34] LABS: International Normalized Ratio 9.5
[2020-11-13 18:42] LABS: Hypochromasia 2+; Target Cells 1+
[2020-11-13 18:43] LABS: Anisocytosis 1+; Ovalocyte 1+
[2020-11-13 18:49] LABS: Bacteria 0 SEEN /hpf (None Seen); Red Blood Cells-Urine 0 SEEN /hpf (0-5)
[2020-11-13 19:05] LABS: Color, Urine Amber (Yellow); Glucose, Dipstick Normal (Normal); Ketone-Dipstick 15 mg/dl (Negative); Leukocyte Esterase-Dipstick 25 /ul (Negative); Nitrite-Dipstick Positive (Negative); Occult Blood-Urine 10 /ul (Negative); Protein-Dipstick 100 mg/dl (Negative); Urine Clarity Clear (Clear); Urine Urobilinogen 12 mg/dl (Normal)
[2020-11-13 19:06] LABS: Urine Bilirubin Dipstick 3 mg/dL (Negative)
[2020-11-13 19:14] LABS: Squamous Epithelial Cells - UA 0-5 SEEN /hpf (5-10); White Blood Cells 0-5 SEEN /hpf (0-5)
[2020-11-13 19:15] LABS: Mucous, Urine 3+ /hpf (<or=2+)
[2020-11-13 19:16] LABS: Hyaline Cast 0-5 SEEN /lpf (0-5); Uric Acid Crystals Ur RARE /hpf (<or=1+)
--- NOTE | 2020-11-13 20:34 | HP.PCM.HOS_ITS ---
HPI - General General Date of Admission: 11/13/20 Date of Service: 11/13/20 Chief Complaint: Debility HPI Narrative NICOLE DUMONT, is a 60 F with a significant history of DVT; PE;morbid obesity; Atrial fibrillation and heart failure with reduced ejection fraction who presents with debility. For the past 4 days patient's has been unable to get up from the bed. She is unable to walk and she is afraid she will fall. She has been incontinent while in bed. She has been incontinent of both stool and bladder. She reports swelling in her right upper extremity and in the right lower extremity. She reported that she was on Lasix while at the group home but upon discharge home she was not prescribed Lasix. She fell in August and was hospitalized at our hospital ([facility]). Thereafter she went to the group home. Ever since discharge from the group home she has been going downhill. On this current visit (11/13/2020) at the emergency department her blood pressure was low and she received IV bolus at the emergency department. She was in A. fib while at the emergency department. Her ventricular rate was around 110. With IV fluids her blood pressure improved and her heart rate improved to the higher 90s. [facility] Medical History Arthritis Blood clot in vein Carpal tunnel syndrome GERD (gastroesophageal reflux disease) History of left heart catheterization (LHC) (~07/20/20) Pulmonary embolism Home Medications Circulation Vein Support PO 07/05/19 [History Last Taken Unknown] acetaminophen 325 mg tablet 650 mg PO BID PRN tab 07/05/19 [History Last Taken Unknown] calcium carb-magnesium carb PO 07/05/19 [History Last Taken Unknown] cholecalciferol (vitamin D3) 125 mcg (5,000 unit) capsule 2,000 mcg PO DAILY 07/05/19 [History Last Taken 07/17/20] lisinopril 20 mg tablet 20 mg PO DAILY #90 tab 07/09/19 [Rx Last Taken 07/16/20] pantoprazole 40 mg tablet,delayed release 40 mg PO DAILY #90 tab 04/08/20 [Rx Last Taken 07/16/20] nystatin 1 applic TOPICAL BID bottle 08/20/20 [Rx Last Taken Unknown] potassium chloride 20 meq PO DAILY #30 tablet 08/20/20 [Rx Last Taken Unknown] diltiazem HCl 120 mg capsule,extended release 24 hr 120 mg PO DAILY #30 cap 10/16/20 [Rx Last Taken Unknown] metoprolol tartrate 50 mg tablet 50 mg PO BID #60 tab 10/16/20 [Rx Last Taken Unknown] warfarin 5 mg tablet 5 mg PO DAILY #30 tab 10/16/20 [Rx Last Taken Unknown] ferrous sulfate 325 mg PO DAILY 11/13/20 [History Last Taken Unknown] omega-3 fatty acids [Fish Oil] 1,000 mg PO DAILY 11/13/20 [History Last Taken Unknown] vitamin B complex [B Complex-Vitamin B12] 1 tab PO DAILY 11/13/20 [History Last Taken Unknown] Allergy/AdvReac Type Severity Reaction Status Date / Time enoxaparin [From Lovenox] Allergy Severe Rash & Verified 11/13/20 17:16 Itching green tea Allergy Intermediate Itching Verified 11/13/20 17:16 peaches Allergy Severe Unknown Uncoded 11/13/20 17:16 Family History Mother Diabetes High cholesterol Father Diabetes Heart disease Hypertension Sister Diabetes High cholesterol Brother Diabetes Surgical History History of cholecystectomy History of oral surgery Social History Smoking Status: Former smoker alcohol intake: never substance use type: does not use what type of physical activity do you participate in: none ROS ROS Narrative 12 point review of system is negative except as stated in HPI. Vital Signs Vital Signs Vital Signs: 11/13/20 17:16 11/13/20 17:43 11/13/20 18:51 Temperature 97.4 F L 97.1 F L Temperature Source Temporal Temporal Pulse Rate 114 H 114 H Respiratory Rate 18 20 H Respiratory Effort Normal Non-Labored Respiratory Pattern Normal Blood Pressure 99/63 103/65 Blood Pressure Mean 75 77 Pulse Ox 95 100 Oxygen Delivery Method Nasal Cannula Nasal Cannula Oxygen Flow Rate (L/min) 3 3 11/13/20 19:30 11/13/20 20:00 Temperature 97.6 F L Temperature Source Temporal Pulse Rate 104 H Respiratory Rate 20 H Respiratory Effort Respiratory Pattern Blood Pressure 100/56 L 89/68 L Blood Pressure Mean 70 75 Pulse Ox 96 Oxygen Delivery Method Nasal Cannula Oxygen Flow Rate (L/min) 3 Weight Weight: 172.5 kg Body Mass Index (BMI) 74.2 Physical Exam Narrative Alert and oriented x3 Nontraumatic; normocephalic Lung clear to auscultate Heart sounds S1-S2. Irregularly irregular rate and rhythm. No murmur, gallop or rubs. Abdomen bowel sounds present soft, nontender nondistended Extremity: Right upper extremity edematous. Left upper extremity no edema. Bilateral lower legs with edema. Results Lab / Micro Data Result Diagrams: 11/13/20 18:00 11/13/20 18:00 Labs: Laboratory Results - last 24 hr 11/13/20 11/13/20 11/13/20 18:00 18:00 18:00 WBC 4.0 L RBC 4.62 Hgb 9.3 L Hct 34.6 L MCV 74.9 L MCH 20.1 L MCHC 26.9 L RDW Std Deviation 59.0 H RDW Coeff of Claudia 22.3 H Plt Count 233 MPV 9.8 Immature Gran % (Auto) 0.300 Neut % (Auto) 73.6 H Lymph % (Auto) 12.5 L [place] % (Auto) 10.5 H Eos % (Auto) 2.3 Baso % (Auto) 0.8 Absolute Neuts (auto) 2.9 Absolute Lymphs (auto) 0.50 L Nucleated RBC % 0.5 Differential Comment Diff Path Review May foll Hypochromasia 2+ Anisocytosis 1+ Target Cells 1+ Ovalocytes 1+ PT 76.3 H INR 9.5 H* Sodium 141 Potassium 3.8 Chloride 106 Carbon Dioxide 30.0 Anion Gap 5 BUN 21 H Creatinine 0.81 Estim Creat Clear Calc 51.73 Est GFR (MDRD) Af Amer 92 Est GFR (MDRD) Non-Af 76 BUN/Creatinine Ratio 25.8 H Glucose 121 H Calcium 9.4 Urine Color Urine Clarity Urine pH Ur Specific [place] Urine Protein Urine Glucose (UA) Urine Ketones Urine Occult Blood Urine Nitrite Urine Bilirubin Urine Urobilinogen Ur Leukocyte Esterase Urine RBC Urine WBC Ur Squamous Epith Cells Uric Acid Crystals Urine Bacteria Hyaline Casts Urine Mucus 11/13/20 18:45 WBC RBC Hgb Hct MCV MCH MCHC RDW Std Deviation RDW Coeff of Claudia Plt Count MPV Immature Gran % (Auto) Neut % (Auto) Lymph % (Auto) [place] % (Auto) Eos % (Auto) Baso % (Auto) Absolute Neuts (auto) Absolute Lymphs (auto) Nucleated RBC % Differential Comment Diff Path Review Hypochromasia Anisocytosis Target Cells Ovalocytes PT INR Sodium Potassium Chloride Carbon Dioxide Anion Gap BUN Creatinine Estim Creat Clear Calc Est GFR (MDRD) Af Amer Est GFR (MDRD) Non-Af BUN/Creatinine Ratio Glucose Calcium Urine Color Gwen Urine Clarity Clear Urine pH 5.0 Ur Specific [place] 1.030 Urine Protein 100 H Urine Glucose (UA) Normal Urine Ketones 15 H Urine Occult Blood 10 H Urine Nitrite Positive H Urine Bilirubin 3 H Urine Urobilinogen 12 H Ur Leukocyte Esterase 25 H Urine RBC 0 SEEN Urine WBC 0-5 SEEN Ur Squamous Epith Cells 0-5 SEEN Uric Acid Crystals RARE Urine Bacteria 0 SEEN Hyaline Casts 0-5 SEEN Urine Mucus 3+ Assessment & Plan Assessment/Plan (1) Debility: (2) Hypotension: QUALIFIERS: Hypotension type: unspecified hypotension type Qualified Code(s): I95.9 - Hypotension, unspecified (3) Atrial fibrillation with RVR: (4) Supratherapeutic INR: (5) Morbid obesity due to excess calories: PLAN: Debility PT and OT to work with patient for strengthening and balance training. Case management consult for possible disposition Hypotension Received normal saline bolus at emergency department. Hold further IV fluids because of history of heart failure with reduced ejection fraction. Hold home Cardizem; lisinopril and metoprolol. Trend blood pressures Atrial fibrillation with rapid ventricular response With IV fluids heart rate improved to higher 90s. We will hold home metoprolol and Cardizem. Of note patient is at risk of flipping further into rapid ventricular response. Placed on PCU on telemetry. Supratherapeutic INR INR of 9.5. Reported last time she took her Coumadin was on 11/12/2020. Discussed emergent department of nonsteroidal albumin and liver function test. Hold Coumadin for now. No evidence of bleeding. Super morbid obesity BMI: Of 74.3. Complicates care. Lifestyle modification recommended. Right upper extremity swelling: Check ultrasound duplex of right upper extremity. Abnormal urinalysis: Patient with a positive nitrite; and urine occult blood from straight cath. Leukocyte Estrace is mildly elevated. Urine WBCs 0-5. Denies any urinary symptoms. Urine culture ordered from the emergency department; follow. History of heart failure: Echocardiogram on 07/18/2020 showed ejection fraction of 45%. Pulmonary artery systolic pressure was 55 mmHg. Moderate tricuspid va lve insufficiency. Mild mitral valve insufficiency. Trivial pulmonary valve insufficiency. Hold lisinopril and metoprolol in the setting of hypotension. Received IV fluids at the emergency department. Stop further IV fluids. Patient does not appear to be in acute heart failure as she does not have shortness of breath. Patient has some mild-moderate bilateral lower extremity edema. Elevate bilateral lower extremity edema. DVT prophylaxis: Low risk in the setting of supratherapeutic INR. Charges/Coding Visit Charges OBSV E&M: 92829 Initial observation care L3
[2020-11-13 20:37] LABS: Albumin, Serum 3.5 g/dL (3.2-5.0)
[2020-11-13 20:41] LABS: AST(SGOT) 27 U/L (15-37); Alanine Aminotransfer ALT/SGPT 15 U/L (13-56); Albumin, Serum 3.5 g/dL (3.2-5.0); Alkaline Phosphatase 52 U/L (45-117); Bilirubin, Direct 0.74 mg/dL (0.00-0.30); Globulin 4.8 g/dL (2.2-4.2); Protein, Total 8.3 g/dL (6.4-8.2)
--- NOTE | 2020-11-13 20:44 | ED.RN ---
CALLED DAUGHTER BENJI TO INFORM HER OF PT'S ADMISSION.
--- NOTE | 2020-11-13 20:52 | VDUE_ITS ---
Reason For Study: RUE SWELLING Right Proximal Left Proximal Right jugular vein is spontaneous, widely Left subclavian vein is spontaneous, widely patent, phasic, with no intraluminal patent, phasic, with no intraluminal echogenicity noted. echogenicity noted. Right Lower Arm Right radial vein is compressible. Right ulnar vein is compressible. Right Arm Right axillary vein is spontaneous, patent, phasic, competent, compressible and demonstrates augmentation. Right brachial vein is compressible. Right cephalic vein is compressible. Right basilic vein is compressible. VL/Venous Duplex US, Unilateral Interpretation Summary No evidence for acute deep venous thrombosis[right] upper extremity with patent and compressible cephalic and basilic veins. Normal flow patterns left subclavian vein Ordering Physician: Stephan Sarabia Referring Physician: Emily Husain Performed By: Korina Mccollum RVT, RDCS and Student ?
[2020-11-14] VITALS (13 sets, daily range): BP systolic 104–119; BP diastolic 64–72; PULSE 90–115; RESP 18; TEMP 36.4–37.1; O2SAT 93–98
[2020-11-14] MEDS: Acetaminophen 325 MG Tablet 650 MG PO ×3 (00:57→19:43)
[2020-11-14 06:44] LABS: Absolute Lymphocyte Count 0.77 X10^3/uL (0.83-4.51); Absolute Neutrophil Count 2.2 X10^3/uL (2.0-7.7); Basophil# 0.04 X10^3/uL; Basophil% 1.1 % (0-1); Eosinophil# 0.15 X10^3/uL; Hematocrit 31.4 % (37-47); Hemoglobin 8.5 g/dL (12.0-15.0); Lymphocyte # 0.77 X10^3/ul (0.83-4.51); Lymphocyte % 20.5 % (19-41); Mean Corp Hgb Conc 27.1 g/dL (32-36); Mean Corpuscular Volume 74.1 fL (81-99); NRBC Flagged by Analyzer 0 % (0-5); Neutrophil # 2.17 X10^3/uL (2.7-7.7); Neutrophil % 57.9 % (47-70); POSITIVE MORPHOLOGY YES; Platelet Count 226 K/mm3 (150-450); RBC Distribution Width CV 22.5 % (11.6-14.6); RBC Distribution Width SD 58.6 fl (35.1-43.9); Red Blood Count 4.24 M/mm3 (4.2-5.4); White Blood Count 3.8 K/mm3 (4.4-11.0)
[2020-11-14 06:49] LABS: Differential Indicated SCAN CRITERIA MET
[2020-11-14 06:58] LABS: International Normalized Ratio 9.2
[2020-11-14 07:02] LABS: Prothrombin Time (Protime)PT. 74.6 SECONDS (11.7-14.9)
[2020-11-14 07:06] LABS: Anion Gap 3 (5-15); BUN 20 mg/dL (7-18); BUN/Creat Ratio 27.8 RATIO (10-20); Calcium,Total 9.2 mg/dL (8.5-10.1); Chloride 105 mmol/L (98-107); Creatinine, Serum 0.72 mg/dL (0.55-1.02); EST Glomerular Filtration Rate 87 mL/min (>60); Est Glom Filt Rate - Afr Amer 106 mL/min (>60); Estimated Creatinine Clearance 58.19 ml/min; Glucose 101 mg/dL (74-106); Potassium 3.7 mmol/L (3.5-5.1); Sodium Level 140 mmol/L (136-145)
[2020-11-14 07:10] LABS: Anisocytosis 1+; Differential Comment SCANNED; Hypochromasia 1+; Macrocytosis RARE; Microcytosis RARE; Ovalocyte RARE; Target Cells RARE
[2020-11-14] MEDS: Vitamin B Comp W-C Capsule 1 CAP PO (08:26)
[2020-11-14] MEDS: Potassium Chloride Oral Tablet 20 MEQ PO (08:26)
[2020-11-14] MEDS: Omega-3 Acid Ethyl Esters 1 GM Capsule PO (08:26)
[2020-11-14] MEDS: Metoprolol Tartrate 50 MG Tablet PO ×2 (09:53→21:31)
[2020-11-14] MEDS: Pantoprazole Sodium 40 MG Tablet PO (09:54)
[2020-11-14] MEDS: Lisinopril 20 MG Tablet PO (09:54)
[2020-11-14] MEDS: Nystatin Powder 15gm Bottle 1 APPLIC TOPICAL ×2 (09:55→21:31)
[2020-11-14] MEDS: Ferrous Sulfate 325 MG Tablet PO (09:55)
[2020-11-14] MEDS: Cholecalciferol (VIT D3) 25 MCG TABLET (1,000 UNITS) 50 MCG PO (09:55)
--- NOTE | 2020-11-14 14:28 | CASEMGMT ---
ARAMIS CM in to complete GUPTA Form with patient. RN KEIRY explained GUPTA form to patient, patient voiced understanding. Patient signed GUPTA form and filed in chart. Patient provided with copy of signed GUPTA Form. Patient had no further questions or concerns at this time.
--- NOTE | 2020-11-14 14:37 | PN.HOSP_ITS ---
Documented by User: Tony AVILEZ 11/14/20 15:06 Subjective Subjective Patient is a 60-year-old female resting in bed, alert and oriented x3. Patient reports upper extremity pain, shortness of breath, urinary incontinence and constipation.. Denies chest pain, palpitations, hemoptysis, sputum production, fever and chills. Objective Data Objective Data Vital Signs: Vital Signs Temp Pulse Resp BP Pulse Ox 97.5 F L 93 18 119/72 94 11/14/20 09:30 11/14/20 11:12 11/14/20 09:30 11/14/20 09:53 11/14/20 09:30 Oxygen Flow Rate (L/min) 3 Oxygen Delivery Method Nasal Cannula Weight: 368 lb 13.334 oz Body Mass Index (BMI) 72.0 Intake & Output: Intake and Output for Last 24 Hours 11/12/20 11/13/20 11/14/20 23:59 23:59 23:59 Intake Total 1000 / 1000 Balance 1000 / 1000 Lab / Micro Data Result Diagrams: 11/14/20 05:25 11/14/20 05:25 Labs: Laboratory Results - last 24 hr 11/13/20 11/13/20 11/13/20 18:00 18:00 18:00 WBC 4.0 L RBC 4.62 Hgb 9.3 L Hct 34.6 L MCV 74.9 L MCH 20.1 L MCHC 26.9 L RDW Std Deviation 59.0 H RDW Coeff of Claudia 22.3 H Plt Count 233 MPV 9.8 Immature Gran % (Auto) 0.300 Neut % (Auto) 73.6 H Lymph % (Auto) 12.5 L [place] % (Auto) 10.5 H Eos % (Auto) 2.3 Baso % (Auto) 0.8 Absolute Neuts (auto) 2.9 Absolute Lymphs (auto) 0.50 L Nucleated RBC % 0.5 Differential Comment Diff Path Review May foll Hypochromasia 2+ Anisocytosis 1+ Microcytosis Macrocytosis Target Cells 1+ Ovalocytes 1+ PT 76.3 H INR 9.5 H* Sodium 141 Potassium 3.8 Chloride 106 Carbon Dioxide 30.0 Anion Gap 5 BUN 21 H Creatinine 0.81 Estim Creat Clear Calc 51.73 Est GFR (MDRD) Af Amer 92 Est GFR (MDRD) Non-Af 76 BUN/Creatinine Ratio 25.8 H Glucose 121 H Calcium 9.4 Total Bilirubin Direct Bilirubin AST ALT Alkaline Phosphatase Total Protein Albumin Globulin Urine Color Urine Clarity Urine pH Ur Specific [place] Urine Protein Urine Glucose (UA) Urine Ketones Urine Occult Blood Urine Nitrite Urine Bilirubin Urine Urobilinogen Ur Leukocyte Esterase Urine RBC Urine WBC Ur Squamous Epith Cells Uric Acid Crystals Urine Bacteria Hyaline Casts Urine Mucus 11/13/20 11/13/20 11/13/20 18:00 18:00 18:45 WBC RBC Hgb Hct MCV MCH MCHC RDW Std Deviation RDW Coeff of Claudia Plt Count MPV Immature Gran % (Auto) Neut % (Auto) Lymph % (Auto) [place] % (Auto) Eos % (Auto) Baso % (Auto) Absolute Neuts (auto) Absolute Lymphs (auto) Nucleated RBC % Differential Comment Diff Path Review Hypochromasia Anisocytosis Microcytosis Macrocytosis Target Cells Ovalocytes PT INR Sodium Potassium Chloride Carbon Dioxide Anion Gap BUN Creatinine Estim Creat Clear Calc Est GFR (MDRD) Af Amer Est GFR (MDRD) Non-Af BUN/Creatinine Ratio Glucose Calcium Total Bilirubin 1.50 H Direct Bilirubin 0.74 H AST 27 ALT 15 Alkaline Phosphatase 52 Total Protein 8.3 H Albumin 3.5 3.5 Globulin 4.8 H Urine Color Gwen Urine Clarity Clear Urine pH 5.0 Ur Specific [place] 1.030 Urine Protein 100 H Urine Glucose (UA) Normal Urine Ketones 15 H Urine Occult Blood 10 H Urine Nitrite Positive H Urine Bilirubin 3 H Urine Urobilinogen 12 H Ur Leukocyte Esterase 25 H Urine RBC 0 SEEN Urine WBC 0-5 SEEN Ur Squamous Epith Cells 0-5 SEEN Uric Acid Crystals RARE Urine Bacteria 0 SEEN Hyaline Casts 0-5 SEEN Urine Mucus 3+ 11/14/20 11/14/20 11/14/20 05:25 05:25 05:25 WBC 3.8 L RBC 4.24 Hgb 8.5 L Hct 31.4 L MCV 74.1 L MCH 20.0 L MCHC 27.1 L RDW Std Deviation 58.6 H RDW Coeff of Claudia 22.5 H Plt Count 226 MPV Immature Gran % (Auto) 0.500 Neut % (Auto) 57.9 Lymph % (Auto) 20.5 [place] % (Auto) 16.0 H Eos % (Auto) 4.0 Baso % (Auto) 1.1 H Absolute Neuts (auto) 2.2 Absolute Lymphs (auto) 0.77 L Nucleated RBC % 0 Differential Comment SCANNED Diff Path Review Hypochromasia 1+ Anisocytosis 1+ Microcytosis RARE Macrocytosis RARE Target Cells RARE Ovalocytes RARE PT 74.6 H INR 9.2 H* Sodium 140 Potassium 3.7 Chloride 105 Carbon Dioxide 32.0 Anion Gap 3 L BUN 20 H Creatinine 0.72 Estim Creat Clear Calc 58.19 Est GFR (MDRD) Af Amer 106 Est GFR (MDRD) Non-Af 87 BUN/Creatinine Ratio 27.8 H Glucose 101 Calcium 9.2 Total Bilirubin Direct Bilirubin AST ALT Alkaline Phosphatase Total Protein Albumin Globulin Urine Color Urine Clarity Urine pH Ur Specific [place] Urine Protein Urine Glucose (UA) Urine Ketones Urine Occult Blood Urine Nitrite Urine Bilirubin Urine Urobilinogen Ur Leukocyte Esterase Urine RBC Urine WBC Ur Squamous Epith Cells Uric Acid Crystals Urine Bacteria Hyaline Casts Urine Mucus Physical Exam Narrative See subjective. Const alert, oriented x3 and no apparent distress HEENT head/scalp atraumatic and moist oral mucous membranes Head and Scalp: normocephalic Eyes PERRL, EOMs intact bilaterally and conjunctivae normal Neck no lymphadenopathy, supple and no JVD Resp normal respiratory effort, no retractions and no use of accessory muscles Cardio regular rate, regular rhythm, no murmurs and no JVD GI normal to inspection, nondistended, normoactive bowel sounds, soft to palpation and non-tender Extremity normal to inspection, full ROM and no clubbing, cyanosis or edema Skin no rashes or lesions noted, no wounds, skin turgor normal and no jaundice Neuro CN's II-XII intact bilaterally Psych affect normal Assessment & Plan Assessment/Plan (1) Hypotension: QUALIFIERS: Hypotension type: unspecified hypotension type Quali fied Code(s): I95.9 - Hypotension, unspecified (2) Debility: (3) Atrial fibrillation with RVR: (4) Supratherapeutic INR: (5) Morbid obesity due to excess calories: PLAN: 1) debility Inability to rise from bed as well as urinary incontinence. Patient interested in SNF placement to help regain function. PT/OT/case management following. Plan; continue to monitor. 2) A. fib with RVR Stable. Rate controlled on diltiazem and metoprolol at home, patient is anticoagulated on warfarin. Diltiazem on hold due to #7. Plan; continue cardiac telemetry monitoring on PCU, continue metoprolol, hold warfarin due to #3. 3) supratherapeutic INR No evidence of an acute bleed. INR currently 9.2. Plan; continue to hold Coumadin, monitor coags, phytonadione 5 mg p.o. x1. 4) right upper extremity swelling Patient reports of continued upper extremity leg pain. Plan; venous duplex of the lower extremities ordered. 5) abnormal UA Patient with a positive nitrite; and urine occult blood from straight cath. Vital signs stable and patient is afebrile. No leukocytosis evident on CBC. Plan; urine culture ordered, continue to monitor. 6) CHF, unclear whether systolic or diastolic. Echocardiogram from 08/22/2020 demonstrated mild mitral valve insufficiency, mild dilated right ventricle, pulmonary artery systolic pressure 55 mmHg, unable to assess left ventricular ejection fraction. Plan; continue Lopressor, lisinopril, hold Lasix due to #7. 7) hypotension Stable, continue Lopressor and lisinopril. DVT prophylaxis - Not indicated given supratherapeutic INR. Patient seen by Tony Kraft PA-C, under the supervision of Dr. Samayoa. Documented by User: Dr. Lamont Samayoa MD 11/14/20 15:22 Objective Data Lab / Micro Data Result Diagrams: 11/14/20 05:25 11/14/20 05:25 Charges/Coding Addendum Addendum: Dr. Samayoa: I personally reviewed the chart and examined the patient, and agree with the above findings. 60-year-old female who presents from home with weakness as well as A. fib with heart rates in the low 100s. She fell in August and since then has had pain in her left thigh, there is no deformity and it was imaged at that time and there is no fracture. She was in a halfway and then had to go ho me because her insurance money ran out and since then has steadily gotten weaker and for the last 4 days has not been able to get out of bed and has had been incontinent in bed. Will have PT/OT evaluate her for possible placement. The likelihood is is that her significant debility is secondary to her super morbid obesity with a BMI of 72. We will continue to monitor her INR and hold her Coumadin, heart rate is back to normal. Urine culture is pending for a slightly abnormal UA, no antibiotics at this time. Visit Charges OBSV E&M: 71500 Subsequent observation care L2
[2020-11-14] MEDS: Phytonadione (Vit K1) 5 MG TABLET PO (15:39)
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
[2020-11-15] VITALS (11 sets, daily range): BP systolic 99–126; BP diastolic 52–69; PULSE 87–94; RESP 18–20; TEMP 36.4–36.8; O2SAT 94–96
[2020-11-15] MEDS: Acetaminophen 325 MG Tablet 650 MG PO (03:29)
[2020-11-15 06:54] LABS: Absolute Lymphocyte Count 0.87 X10^3/uL (0.83-4.51); Basophil# 0.04 X10^3/uL; Basophil% 1.1 % (0-1); Eosinophil# 0.14 X10^3/uL; Eosinophils% 3.8 % (0-5); Hematocrit 32.1 % (37-47); Hemoglobin 8.4 g/dL (12.0-15.0); Lymphocyte # 0.87 X10^3/ul (0.83-4.51); Lymphocyte % 23.7 % (19-41); Mean Corp Hgb Conc 26.2 g/dL (32-36); Mean Corpuscular Hgb 19.7 pg (27.0-32.0); Mean Corpuscular Volume 75.2 fL (81-99); Mean Platelet Vol. 10.5 fl (6.2-12.0); Monocyte% 16.3 % (0-10); NRBC Flagged by Analyzer 0.5 % (0-5); Neutrophil # 2.01 X10^3/uL (2.7-7.7); Neutrophil % 54.8 % (47-70); POSITIVE MORPHOLOGY YES; Platelet Count 236 K/mm3 (150-450); RBC Distribution Width SD 58.8 fl (35.1-43.9); Red Blood Count 4.27 M/mm3 (4.2-5.4); White Blood Count 3.7 K/mm3 (4.4-11.0)
[2020-11-15 07:01] LABS: Differential Indicated SCAN CRITERIA MET
[2020-11-15 07:22] LABS: Anion Gap 3 (5-15); BUN 21 mg/dL (7-18); BUN/Creat Ratio 26.1 RATIO (10-20); Calcium,Total 8.8 mg/dL (8.5-10.1); Chloride 106 mmol/L (98-107); EST Glomerular Filtration Rate 77 mL/min (>60); Est Glom Filt Rate - Afr Amer 93 mL/min (>60); Estimated Creatinine Clearance 52.37 ml/min; Glucose 97 mg/dL (74-106); Potassium 4.2 mmol/L (3.5-5.1); Sodium Level 141 mmol/L (136-145)
[2020-11-15 07:26] LABS: Hypochromasia 2+
[2020-11-15 07:54] LABS: International Normalized Ratio 5.8; Prothrombin Time (Protime)PT. 51.5 SECONDS (11.7-14.9)
[2020-11-15] MEDS: Omega-3 Acid Ethyl Esters 1 GM Capsule PO (09:11)
[2020-11-15] MEDS: Pantoprazole Sodium 40 MG Tablet PO (09:11)
[2020-11-15] MEDS: Lisinopril 20 MG Tablet PO (09:11)
[2020-11-15] MEDS: Potassium Chloride Oral Tablet 20 MEQ PO (09:11)
[2020-11-15] MEDS: Cholecalciferol (VIT D3) 25 MCG TABLET (1,000 UNITS) 50 MCG PO (09:11)
[2020-11-15] MEDS: Metoprolol Tartrate 50 MG Tablet PO ×2 (09:12→22:06)
[2020-11-15] MEDS: Vitamin B Comp W-C Capsule 1 CAP PO (09:12)
[2020-11-15] MEDS: Nystatin Powder 15gm Bottle 1 APPLIC TOPICAL ×2 (09:12→22:06)
[2020-11-15] MEDS: Ferrous Sulfate 325 MG Tablet PO (12:33)
[2020-11-15] MEDS: Acetaminophen 500 MG Tablet 1000 MG PO ×2 (14:37→22:06)
--- NOTE | 2020-11-15 14:44 | PN.HOSP_ITS ---
Documented by User: Tony AVILEZ 11/15/20 15:01 Subjective Subjective Patient is a 60-year-old female comfortably resting in bed, alert and oriented x3. Patient still reports of left upper extremity pain, however reports that her pain is currently controlled on pain regimen. Denies chest pain, shortness of breath, palpitations, fever, chills, N/V/D. Objective Data Objective Data Vital Signs: Vital Signs Temp Pulse Resp BP Pulse Ox 97.9 F 87 20 H 121/62 H 94 11/15/20 09:08 11/15/20 09:12 11/15/20 09:08 11/15/20 09:08 11/15/20 09:08 Oxygen Flow Rate (L/min) 3 Oxygen Delivery Method Nasal Cannula Weight: 368 lb 13.334 oz Body Mass Index (BMI) 72.0 Intake & Output: Intake and Output for Last 24 Hours 11/13/20 11/14/20 11/15/20 23:59 23:59 23:59 Intake Total 1000 / 1000 60 / 60 0 / 0 Output Total 50 / 50 Balance 1000 / 1000 10 / 10 0 / 0 Lab / Micro Data Result Diagrams: 11/15/20 05:50 11/15/20 05:50 Labs: Laboratory Results - last 24 hr 11/15/20 11/15/20 11/15/20 05:50 05:50 05:50 WBC 3.7 L RBC 4.27 Hgb 8.4 L Hct 32.1 L MCV 75.2 L MCH 19.7 L MCHC 26.2 L RDW Std Deviation 58.8 H RDW Coeff of Claudia 22.0 H Plt Count 236 MPV 10.5 Immature Gran % (Auto) 0.300 Neut % (Auto) 54.8 Lymph % (Auto) 23.7 [place] % (Auto) 16.3 H Eos % (Auto) 3.8 Baso % (Auto) 1.1 H Absolute Neuts (auto) 2.0 Absolute Lymphs (auto) 0.87 Nucleated RBC % 0.5 Hypochromasia 2+ PT 51.5 H INR 5.8 H* Sodium 141 Potassium 4.2 Chloride 106 Carbon Dioxide 32.0 Anion Gap 3 L BUN 21 H Creatinine 0.80 Estim Creat Clear Calc 52.37 Est GFR (MDRD) Af Amer 93 Est GFR (MDRD) Non-Af 77 BUN/Creatinine Ratio 26.1 H Glucose 97 Calcium 8.8 Physical Exam Const alert, oriented x3 and no apparent distress HEENT head/scalp atraumatic and moist oral mucous membranes Head and Scalp: normocephalic Eyes PERRL, EOMs intact bilaterally and conjunctivae normal Neck no lymphadenopathy, supple and no JVD Resp normal respiratory effort Resp Narrative: Patient chronically short of breath. Currently satting at 94% on 3 L via nasal cannula. Cardio regular rate, regular rhythm, no murmurs and no JVD GI normal to inspection, nondistended, normoactive bowel sounds Extremity normal to inspection and full ROM Skin no rashes or lesions noted, no wounds and skin turgor normal Neuro CN's II-XII intact bilaterally Psych affect normal Assessment & Plan Assessment/Plan (1) Debility: (2) Atrial fibrillation with RVR: (3) Morbid obesity due to excess calories: (4) Hypotension: QUALIFIERS: Hypotension type: unspecified hypotension type Qualified Code(s): I95.9 - Hypotension, unspecified PLAN: See subjective for patient presentation. Patient desires to be placed in either [facility] and [facility], case management following. Patient does not wish to be placed in [facility] as she had a bad prior experience. 1) debility Inability to rise from bed as well as urinary incontinence. Patient interested in SNF placement to help regain function. PT/OT/case management following. Pl an; continue to monitor. 2) A. fib with RVR Stable. Rate controlled on diltiazem and metoprolol at home, patient is anticoagulated on warfarin. Diltiazem on hold due to #7. Plan; continue cardiac telemetry monitoring on PCU, continue metoprolol, hold warfarin due to #3. 3) supratherapeutic INR No evidence of an acute bleed. INR currently 5.8 after 1 dose of phytonadione. Plan; continue to hold Coumadin, monitor coags. 4) right upper extremity swelling Patient reports of continued upper extremity leg pain. Plan; venous duplex of the lower extremities ordered. 5) abnormal UA Patient with a positive nitrite; and urine occult blood from straight cath. Vital signs stable and patient is afebrile. No leukocytosis evident on CBC. Urine culture pending. Plan;, continue to monitor. 6) CHF, unclear whether systolic or diastolic. Echocardiogram from 08/22/2020 demonstrated mild mitral valve insufficiency, mild dilated right ventricle, pulmonary artery systolic pressure 55 mmHg, unable to assess left ventricular ejection fraction. Plan; continue Lopressor, lisinopril, hold Lasix due to #7. 7) hypotension Stable, continue Lopressor and lisinopril. DVT prophylaxis - Not indicated given supratherapeutic INR. Patient seen by oTny Kraft PA-C, under the supervision of Dr. Samayoa. Documented by User: Dr. Lamont Samayoa MD 11/15/20 15:47 Objective Data Lab / Micro Data Result Diagrams: 11/15/20 05:50 11/15/20 05:50 Charges/Coding Addendum Addendum: Dr. Samayoa: I personally reviewed the chart and examined the patient, and agree with the above findings. 60-year-old female who presents from home with weakness as well as A. fib with heart rates in the low 100s. She fell in August and since then has had pain in her left thigh, there is no deformity and it was imaged at that time and there is no fracture. She was in a longterm and then had to go home because her insurance money ran out and since then has steadily gotten weaker and for the last 4 days has not been able to get out of bed and has had been incontinent in bed. Will have PT/OT evaluate her for possible placement. The likelihood is is that her significant debility is secondary to her super morbid obesity with a BMI of 72. We will continue to monitor her INR and hold her Coumadin, heart rate is back to normal. Urine culture is pending for a slightly abnormal UA, no antibiotics at this time. 11/15/2020: Doing well today states that the pain is little bit improved in her left leg, but does have some left wrist pain which does not appear to have been discussed back in August. If no resolution in her pain she may need x-ray in the morning. INR is improving, and will continue with PT/OT for possible placement. Heart rate and blood pressure are stable. Visit Charges OBSV E&M: 18779 Subsequent observation care L2
[2020-11-16] VITALS (14 sets, daily range): BP systolic 78–115; BP diastolic 45–63; PULSE 86–102; RESP 15–20; TEMP 36.4–37.1; O2SAT 92–98
[2020-11-16] MEDS: Acetaminophen 500 MG Tablet 1000 MG PO ×3 (05:28→21:07)
[2020-11-16 06:59] LABS: Absolute Lymphocyte Count 0.83 X10^3/uL (0.83-4.51); Absolute Neutrophil Count 2.1 X10^3/uL (2.0-7.7); Basophil# 0.04 X10^3/uL; Basophil% 1.1 % (0-1); Eosinophil# 0.14 X10^3/uL; Eosinophils% 3.8 % (0-5); Hematocrit 33.7 % (37-47); Hemoglobin 8.7 g/dL (12.0-15.0); Lymphocyte # 0.83 X10^3/ul (0.83-4.51); Lymphocyte % 22.6 % (19-41); Mean Corp Hgb Conc 25.8 g/dL (32-36); Mean Corpuscular Hgb 19.6 pg (27.0-32.0); Mean Corpuscular Volume 76.1 fL (81-99); Mean Platelet Vol. 10.8 fl (6.2-12.0); Monocyte# 0.57 X10^3/uL; Monocyte% 15.5 % (0-10); NRBC Flagged by Analyzer 0 % (0-5); Neutrophil # 2.07 X10^3/uL (2.7-7.7); Neutrophil % 56.5 % (47-70); POSITIVE MORPHOLOGY YES; Platelet Count 246 K/mm3 (150-450); RBC Distribution Width CV 22.2 % (11.6-14.6); RBC Distribution Width SD 59.6 fl (35.1-43.9); Red Blood Count 4.43 M/mm3 (4.2-5.4); White Blood Count 3.7 K/mm3 (4.4-11.0)
[2020-11-16 07:07] LABS: Differential Indicated SCAN CRITERIA MET; International Normalized Ratio 3.3; Prothrombin Time (Protime)PT. 32.7 SECONDS (11.7-14.9)
[2020-11-16 08:26] LABS: Vitamin D,25 Hydroxy 69.2 ng/mL
[2020-11-16] MEDS: Omega-3 Acid Ethyl Esters 1 GM Capsule PO (08:37)
[2020-11-16] MEDS: Potassium Chloride Oral Tablet 20 MEQ PO (08:37)
[2020-11-16] MEDS: Vitamin B Comp W-C Capsule 1 CAP PO (08:37)
[2020-11-16] MEDS: Cholecalciferol (VIT D3) 25 MCG TABLET (1,000 UNITS) 50 MCG PO (08:38)
--- NOTE | 2020-11-16 09:19 | CASEMGMT ---
PHIL faxed referral to [facility] and also called [facility]mar[facility]. Await response and will also need pre-cert. Sagrario Philip SHAMPOO TECHNICIAN [employer] CONSULTANT
[2020-11-16] MEDS: Metoprolol Tartrate 50 MG Tablet PO ×2 (09:57→21:07)
[2020-11-16] MEDS: Pantoprazole Sodium 40 MG Tablet PO (09:57)
[2020-11-16] MEDS: Lisinopril 20 MG Tablet PO (09:57)
[2020-11-16] MEDS: Nystatin Powder 15gm Bottle 1 APPLIC TOPICAL ×2 (09:58→19:48)
--- NOTE | 2020-11-16 10:58 | CASEMGMT ---
PHIL received a call from Annmarie with [facility] and they can take patient. Ann[facility]ie started the pre-cert. PHIL will notify patient and will also need to let her know about visitation. Plan: d/c to [facility] pending pre-cert. Sagrario Philip FOOD TRUCK CATERER OLGA
--- NOTE | 2020-11-16 11:31 | CASEMGMT ---
PHIL notified patient that [facility] can take her and we just have to wait on her insurance to approve her. She said she has not had the COVID vaccine. PHIL told her she will have to quarantine for 14 days and then can have scheduled visits. Plan: [facility] pending insurance approval. Sagrario Philip TREE FALLER OLGA
[2020-11-16] MEDS: Ferrous Sulfate 325 MG Tablet PO (12:40)
--- NOTE | 2020-11-16 13:14 | PN.HOSP_ITS ---
Documented by User: Tony AVILEZ 11/16/20 13:20 Subjective Subjective Patient is a 60-year-old female comfortably resting in bed, alert and orient x3. Patient continues to report of ongoing upper extremity pain and urinary incontinence. Denies chest pain, shortness of breath, palpitations, hemoptysis, sputum production, fever, chills, N/V/D. Objective Data Objective Data Vital Signs: Vital Signs Temp Pulse Resp BP Pulse Ox 97.8 F 89 15 111/63 94 11/16/20 09:52 11/16/20 11:12 11/16/20 09:52 11/16/20 09:57 11/16/20 09:52 Oxygen Flow Rate (L/min) 3 Oxygen Delivery Method Nasal Cannula Weight: 368 lb 13.334 oz Body Mass Index (BMI) 72.0 Intake & Output: Intake and Output for Last 24 Hours 11/14/20 11/15/20 11/16/20 23:59 23:59 23:59 Intake Total 60 / 60 0 / 240 240 / 240 Output Total 50 / 50 Balance 10 / 10 0 / 240 240 / 240 Lab / Micro Data Result Diagrams: 11/16/20 05:50 11/15/20 05:50 Labs: Laboratory Results - last 24 hr 11/14/20 11/16/20 11/16/20 05:25 05:50 05:50 WBC 3.7 L RBC 4.43 Hgb 8.7 L Hct 33.7 L MCV 76.1 L MCH 19.6 L MCHC 25.8 L RDW Std Deviation 59.6 H RDW Coeff of Claudia 22.2 H Plt Count 246 MPV 10.8 Immature Gran % (Auto) 0.500 Neut % (Auto) 56.5 Lymph % (Auto) 22.6 [place] % (Auto) 15.5 H Eos % (Auto) 3.8 Baso % (Auto) 1.1 H Absolute Neuts (auto) 2.1 Absolute Lymphs (auto) 0.83 Nucleated RBC % 0 PT 32.7 H INR 3.3 Vitamin D 25-Hydroxy 69.2 Micro: Microbiology 11/13/20 18:45 Urine, Catheterized Urine Culture - Final Streptococcus viridans group Physical Exam Const alert, oriented x3 and no apparent distress HEENT head/scalp atraumatic and moist oral mucous membranes Head and Scalp: normocephalic Eyes PERRL, EOMs intact bilaterally and conjunctivae normal Neck no lymphadenopathy, supple and no JVD Resp normal respiratory effort, no retractions and no use of accessory muscles Cardio regular rate, regular rhythm, no murmurs and no JVD GI normal to inspection, nondistended, normoactive bowel sounds and soft to palpation Extremity normal to inspection and full ROM Skin no rashes or lesions noted, no wounds and skin turgor normal Neuro CN's II-XII intact bilaterally Psych affect normal Assessment & Plan Assessment/Plan (1) Debility: (2) Atrial fibrillation with RVR: (3) Morbid obesity due to excess calories: (4) High blood pressure: QUALIFIERS: Hypertension type: essential hypertension Qualified Code(s): I10 - Essential (primary) hypertension PLAN: See subjective for patient presentation. Discharge planning; [facility] has accepted patient, discharge pending insurance approval. 1) debility Inability to rise from bed as well as urinary incontinence. Patient interested in SNF placement to help regain function. PT/OT/case management following. Plan; continue to monitor. 2) A. fib with RVR Stable. Rate controlled on diltiazem and metoprolol at home, patient is anticoagulated on warfarin. Diltiazem on hold due to #7. Plan; continue cardiac telemetry monitoring on PCU, continue metoprolol, hold warfarin due to #3. 3) supratherapeutic INR Resolved, currently 3.3. 4) right upper extremity swelling Patient reports of continued upper extremity leg pain. Plan; venous duplex of the lower extremities ordered. 5) abnormal UA Patient with a positive nitrite; and urine occult blood from straight cath. Vital signs stable and patient is afebrile. No leukocytosis evident on CBC. Urine culture pending. Plan;, continue to monitor. 6) CHF, unclear whether systolic or diastolic. Echocardiogram from 08/22/2020 demonstrated mild mitral valve insufficiency, mild dilated right ventricle, pulmonary artery systolic pressure 55 mmHg, unable to assess left ventricular ejection fraction. Plan; continue Lopressor, lisinopril, hold Lasix due to #7. 7) hypotension Stable, continue Lopressor and lisinopril. DVT prophylaxis - Coumadin on hold due to #3. Patient seen by Tony Kraft PA-C, under the supervision of Dr. Lyon. Documented by User: Dr. Balbir Lyon MD 11/16/20 13:33 Objective Data Lab / Micro Data Result Diagrams: 11/16/20 05:50 11/15/20 05:50 Assessment & Plan Addt'l Comments This patient was seen in conjunction with Tony Kraft PA-C. I have independently interviewed and examined the patient and reviewed pertinent historical, laboratory, and other data. Please refer to Tony Kraft PA-C's note for details of this patient's presentation, findings, and recommendations. I have reviewed Tony Kraft PA-C's note and concur with documented findings. In brief, patient is a 60-year-old lady morbidly obese with BMI of 72 admitted with progressive generalized weakness Physical Examination: GENERAL: cooperative HEENT: Atraumatic; EYES; Anicteric, Normal Conjunctiva NECK; supple, normal thyroid, RESPIRATORY: Diminished to auscultation CARDIOVASCULAR: Regular S1 S2, GI: soft, normoactive bowel sounds, : No Renal angle tenderness; EXTREMITIES: No edema, no clubbing, MUSCULOSKELETAL: no muscle waisting NEURO: Awake; no lateralizing signs. SKIN: No Rash PSYCH; Flat affect Assessment: 1. Physical debility 2. Paroxysmal A. fib 3. History of pulmonary embolism 4. Generalized osteoarthritis 5. Morbid obesity with BMI of 72 3. Supratherapeutic INR on admission 7. Chronic congestive heart failure with preserved ejection fraction 8. Essential hypertension Recommendations: 1. I have discussed the results of my overview and impressions with the patient 2. Options for management were reviewed Charges/Coding Visit Charges Inpatient E&M: 73655 Subs Hosp L2
[2020-11-16 13:53] LABS: Pathologist Review Reviewed
--- NOTE | 2020-11-16 14:00 | CASEMGMT ---
SOCIAL WORK Call to [facility] with Adult [facility] Services due to concerns voiced by nursing. Montrell informed plan is for [facility] pending insurance authorization. [place]rell requesting [facility] be updated about APS report and follow up with APS upon discharge from SNF. PHIL Zabala notified. Rah Andrade, IDEA WORKER, CUFFING MACHINE OPERATOR
[2020-11-17] VITALS (8 sets, daily range): BP systolic 94–111; BP diastolic 46–58; PULSE 82–95; RESP 16–20; TEMP 36.6–37.1; O2SAT 96–98
[2020-11-17] MEDS: Acetaminophen 500 MG Tablet 1000 MG PO ×2 (05:30→13:33)
[2020-11-17 05:47] LABS: Absolute Lymphocyte Count 0.69 X10^3/uL (0.83-4.51); Absolute Neutrophil Count 2.3 X10^3/uL (2.0-7.7); Basophil# 0.03 X10^3/uL; Basophil% 0.8 % (0-1); Eosinophil# 0.21 X10^3/uL; Eosinophils% 5.4 % (0-5); Hematocrit 32.3 % (37-47); Hemoglobin 8.3 g/dL (12.0-15.0); Lymphocyte # 0.69 X10^3/ul (0.83-4.51); Lymphocyte % 17.6 % (19-41); Mean Corp Hgb Conc 25.7 g/dL (32-36); Mean Corpuscular Hgb 20.1 pg (27.0-32.0); Mean Corpuscular Volume 78.2 fL (81-99); Mean Platelet Vol. 10.7 fl (6.2-12.0); Monocyte# 0.68 X10^3/uL; Monocyte% 17.4 % (0-10); NRBC Flagged by Analyzer 0.5 % (0-5); Neutrophil # 2.29 X10^3/uL (2.7-7.7); Neutrophil % 58.5 % (47-70); POSITIVE MORPHOLOGY YES; Platelet Count 219 K/mm3 (150-450); RBC Distribution Width CV 22.5 % (11.6-14.6); RBC Distribution Width SD 62.2 fl (35.1-43.9); Red Blood Count 4.13 M/mm3 (4.2-5.4); White Blood Count 3.9 K/mm3 (4.4-11.0)
[2020-11-17 05:50] LABS: Differential Indicated SCAN CRITERIA MET
[2020-11-17 06:08] LABS: Anion Gap 4 (5-15); BUN 27 mg/dL (7-18); Calcium,Total 8.7 mg/dL (8.5-10.1); Chloride 106 mmol/L (98-107); Creatinine, Serum 1.08 mg/dL (0.55-1.02); EST Glomerular Filtration Rate 55 mL/min (>60); Est Glom Filt Rate - Afr Amer 66 mL/min (>60); Estimated Creatinine Clearance 38.79 ml/min; Glucose 102 mg/dL (74-106); Potassium 4.4 mmol/L (3.5-5.1); Sodium Level 138 mmol/L (136-145)
[2020-11-17] MEDS: Pantoprazole Sodium 40 MG Tablet PO (08:57)
[2020-11-17] MEDS: Cholecalciferol (VIT D3) 25 MCG TABLET (1,000 UNITS) 50 MCG PO (08:57)
[2020-11-17] MEDS: Vitamin B Comp W-C Capsule 1 CAP PO (08:57)
[2020-11-17] MEDS: Omega-3 Acid Ethyl Esters 1 GM Capsule PO (08:57)
[2020-11-17] MEDS: Lisinopril 20 MG Tablet PO (08:57)
[2020-11-17] MEDS: Potassium Chloride Oral Tablet 20 MEQ PO (08:57)
[2020-11-17] MEDS: Metoprolol Tartrate 50 MG Tablet PO (08:58)
[2020-11-17] MEDS: Nystatin Powder 15gm Bottle 1 APPLIC TOPICAL (08:58)
--- NOTE | 2020-11-17 10:11 | PCM.DC ---
Discharge Instructions Follow Up Care Test Results: Test results from this visit will be discussed in further detail at your follow-up appointment, if applicable. Discharge Plan Admission Admit Date/Time: 11/13/20 20:32 Attending Provider: Balbir Lyon Primary Care Provider: Emily Husain Discharge Orders/Prescriptions Prescriptions: No Action Circulation Vein Support PO RF: 0 cholecalciferol (vitamin D3) 125 mcg (5,000 unit) capsule 2,000 mcg PO DAILY RF: 0 calcium carb-magnesium carb PO RF: 0 acetaminophen [Tylenol] 325 mg tablet 650 mg PO BID PRN (Reason: Pain 1-10 Or Fever) RF: 0 nystatin 1 APPLIC bottle 1 applic TOPICAL BID RF: 0 potassium chloride 20 MEQ tablet 20 meq PO DAILY Qty: 30 RF: 0 Fish Oil Capsule 1,000 mg PO DAILY RF: 0 ferrous sulfate 325 MG tablet 325 mg PO DAILY RF: 0 vitamin B complex [B Complex-Vitamin B12] Tablet 1 tab PO DAILY RF: 0 lisinopril 20 mg tablet 20 mg PO DAILY Qty: 90 RF: 3 pantoprazole 40 mg tablet,delayed release (DR/EC) 40 mg PO DAILY Qty: 90 RF: 3 metoprolol tartrate 50 mg tablet 50 mg PO BID Qty: 60 RF: 0 warfarin 5 mg tablet 5 mg PO DAILY Qty: 30 RF: 0 diltiazem HCl 120 mg capsule,extended release 24hr 120 mg PO DAILY Qty: 30 RF: 0 Referrals / Follow Up: Emily Husain MD [Primary Care Provider] -
--- NOTE | 2020-11-17 11:23 | PCM.TXEXTCAR ---
Diet 11/13/20 20:52 Diet: Cardiac - Heart Healthy Food consistency:: Regular Liquid Consistency:: Regular/Thin Therapies Physical Therapy: Eval and Treat Occupational Therapy: Eval and Treat Problem/Diagnosis (1) Debility: Status: Acute (2) Atrial fibrillation with RVR: Status: Acute (3) Morbid obesity due to excess calories: Status: Acute (4) High blood pressure: Status: Chronic Allergies/Procedures Done in Hospital Allergies enoxaparin [From Lovenox] Allergy (Severe, Verified 11/13/20 17:16) Rash & Itching peach Allergy (Severe, Verified 11/14/20 15:01) Other green tea Allergy (Intermediate, Verified 11/13/20 17:16) Itching Type of Care/Length of Stay Estimated LOS: Convalescent Care Less Than 30 days Type of Care Needed: Skilled Rehab Potential: Fair Prognosis: Fair Additional Orders/Day of Discharge Day of Discharge: 11/17/20 Follow Up Care Please follow up with your Primary Care Physician in: Primary care provider Please Follow Up With: Within the next two weeks. Discharge Plan Admission Admit Date/Time: 11/13/20 20:32 Primary Reason for Your Visit: Debility Attending Provider: Balbir Lyon Primary Care Provider: Emily Husain Discharge Orders/Prescriptions Prescriptions: Continued Circulation Vein Support PO RF: 0 cholecalciferol (vitamin D3) 125 mcg (5,000 unit) capsule 2,000 mcg PO DAILY RF: 0 calcium carb-magnesium carb PO RF: 0 acetaminophen [Tylenol] 325 mg tablet 650 mg PO BID PRN (Reason: Pain 1-10 Or Fever) RF: 0 nystatin 1 APPLIC bottle 1 applic TOPICAL BID RF: 0 potassium chloride 20 MEQ tablet 20 meq PO DAILY Qty: 30 RF: 0 omega-3 fatty acids Capsule 1,000 mg PO DAILY RF: 0 ferrous sulfate 325 MG tablet 325 mg PO DAILY RF: 0 vitamin B complex [B Complex-Vitamin B12] Tablet 1 tab PO DAILY RF: 0 lisinopril 20 mg tablet 20 mg PO DAILY Qty: 90 RF: 3 pantoprazole 40 mg tablet,delayed release (DR/EC) 40 mg PO DAILY Qty: 90 RF: 3 metoprolol tartrate 50 mg tablet 50 mg PO BID Qty: 60 RF: 0 warfarin 5 mg tablet 5 mg PO DAILY Qty: 30 RF: 0 diltiazem HCl 120 mg capsule,extended release 24hr 120 mg PO DAILY Qty: 30 RF: 0 Referrals / Follow Up: Emily Husain MD [Primary Care Provider] - Within 2 Weeks Disposition Disposition (needs filled in before D/C Order can be placed): Long-Term Facility
--- NOTE | 2020-11-17 11:28 | DS.PCM_ITS ---
Documented by User: Tony AVILEZ 11/17/20 11:36 Providers Date of Admission: 11/13/20 Primary Care Physician: Dr. Emily Husain MD Reason For Visit: DEBILITY, AFIB, HYPOTENSION Diagnosis Discharge Diagnosis (1) Debility: Status: Acute Code(s): R53.81 - Other malaise (2) Atrial fibrillation with RVR: Status: Acute Code(s): I48.91 - Unspecified atrial fibrillation (3) Morbid obesity due to excess calories: Status: Acute Code(s): E66.01 - Morbid (severe) obesity due to excess calories (4) High blood pressure: Status: Chronic Code(s): I10 - Essential (primary) hypertension Qualifiers: Hypertension type: essential hypertension Qualified Code(s): I10 - Essential (primary) hypertension Medications at Discharge Home Medications Circulation Vein Support PO 07/05/19 acetaminophen 325 mg tablet 650 mg PO BID PRN tab 07/05/19 calcium carb-magnesium carb PO 07/05/19 cholecalciferol (vitamin D3) 125 mcg (5,000 unit) capsule 2,000 mcg PO DAILY 07/05/19 lisinopril 20 mg tablet 20 mg PO DAILY #90 tab 07/09/19 pantoprazole 40 mg tablet,delayed release 40 mg PO DAILY #90 tab 04/08/20 nystatin 1 applic TOPICAL BID bottle 08/20/20 potassium chloride 20 meq PO DAILY #30 tablet 08/20/20 diltiazem HCl 120 mg capsule,extended release 24 hr 120 mg PO DAILY #30 cap 10/16/20 metoprolol tartrate 50 mg tablet 50 mg PO BID #60 tab 10/16/20 warfarin 5 mg tablet 5 mg PO DAILY #30 tab 10/16/20 ferrous sulfate 325 mg PO DAILY 11/13/20 omega-3 fatty acids 1,000 mg PO DAILY 11/13/20 vitamin B complex [B Complex-Vitamin B12] 1 tab PO DAILY 11/13/20 Hospital Course Summary of Care Provided Minutes Spent on Discharge: 35 Hospital Course: See subjective for patient presentation. Discharge planning; pre-CERT approved for [facility], patient will be discharged today. 1) debility Inability to rise from bed as well as urinary incontinence. Patient interested in SNF placement to help regain function. PT/OT/case management following. Plan; as above. 2) A. fib with RVR Stable. Rate controlled on diltiazem and metoprolol at home, patient is anticoagulated on warfarin. Plan; continue diltiazem, metoprolol and warfarin on discharge. 3) supratherapeutic INR Resolved, currently 3.3. Coumadin resumed. 4) right upper extremity swelling Patient reports of continued upper extremity leg pain. Venous duplex of the lower extremities demonstrates no evidence of acute DVT and demonstrate patency throughout the cephalic, basilar leg and left subclavian veins. Plan; venous duplex of the lower extremities ordered. 5) abnormal UA Patient with a positive nitrite; and urine occult blood from straight cath. Vital signs stable and patient is afebrile. No leukocytosis evident on CBC. Urine culture grew strep Streptococcus viridans. Plan; no antibiotics on discharge due to unremarkable presentation throughout admission. 6) CHF, unclear whether systolic or diastolic. Echocardiogram from 08/22/2020 demonstrated mild mitral valve insufficiency, mild dilated right ventricle, pulmonary artery systolic pressure 55 mmHg, unable to assess left ventricular ejection fraction. Plan; continue Lopressor, lisinopril and Lasix. 7) hypotension Stable, continue Lopressor and lisinopril. Patient seen by Tony Kraft PA-C, under the supervision of Dr. Lyon. Physical Exam Narrative Patient is a 60-year-old female comfortably resting in bed, alert and oriented x3. Patient denies any change or progression in her shortness of breath, which is a chronic issue for her. Denies chest pain, palpitations, hemoptysis, sputum production, fever, chills, N/V/D . Const alert, oriented x3 and no apparent distress Nutritional Appearance: morbidly obese HEENT normocephalic, head/scalp atraumatic and hearing grossly normal bilaterally Eyes PERRL, EOMs intact bilaterally and conjunctivae normal Neck no lymphadenopathy, supple and no JVD Resp normal respiratory effort, no retractions, no use of accessory muscles and clear to auscultation bilaterally Cardio regular rate, regular rhythm, no murmurs and no JVD GI normal to inspection, nondistended, normoactive bowel sounds and soft to palpation Extremity normal to inspection Skin no rashes or lesions noted and no wounds Neuro CN's II-XII intact bilaterally Psych affect normal Weight / BMI Weight Weight: 368 lb 13.334 oz Body Mass Index (BMI) 72.0 ABG / Lab / Microbiology Data Result Diagrams: 11/17/20 05:14 11/17/20 05:14 Laboratory: Laboratory Results - last 24 hr 11/13/20 11/17/20 11/17/20 18:00 05:14 05:14 WBC 3.9 L RBC 4.13 L Hgb 8.3 L Hct 32.3 L MCV 78.2 L MCH 20.1 L MCHC 25.7 L RDW Std Deviation 62.2 H RDW Coeff of Claudia 22.5 H Plt Count 219 MPV 10.7 Immature Gran % (Auto) 0.300 Neut % (Auto) 58.5 Lymph % (Auto) 17.6 L [place] % (Auto) 17.4 H Eos % (Auto) 5.4 H Baso % (Auto) 0.8 Absolute Neuts (auto) 2.3 Absolute Lymphs (auto) 0.69 L Nucleated RBC % 0.5 [address] Review Reviewed Sodium 138 Potassium 4.4 Chloride 106 Carbon Dioxide 28.0 Anion Gap 4 L BUN 27 H Creatinine 1.08 H Estim Creat Clear Calc 38.79 Est GFR (MDRD) Af Amer 66 Est GFR (MDRD) Non-Af 55 L BUN/Creatinine Ratio 25.0 H Glucose 102 Calcium 8.7 Microbiology: Microbiology 11/13/20 18:45 Urine Culture - Final Urine, Catheterized Streptococcus viridans group Microbiology 11/13/20 18:45 Urine, Catheterized Urine Culture - Final Streptococcus viridans group Radiography Diagnostic Testing: Radiology Impression Venous Doppler Study 11/13/20 20:52 Interpretation Summary No evidence for acute deep venous thrombosis[right] upper extremity with patent and compressible cephalic and basilic veins. Normal flow patterns left subclavian vein Ordering Physician: Stephan Sarabia Referring Physician: Emily Husain Performed By: Chun PERKINS RD, Korina and Student ? D/C Instructions Please Follow Up With: Within the next two weeks. Meaningful Use Info Meaningful Use Diagnoses (Choose all that apply): None applicable Discharge Plan Admission Admit Date/Time: 11/13/20 20:32 Primary Reason for Your Visit: Debility Attending Provider: Balbir Lyon Primary Care Provider: Emily Husain Discharge Orders/Prescriptions Prescriptions: Continued Circulation Vein Support PO RF: 0 cholecalciferol (vitamin D3) 125 mcg (5,000 unit) capsule 2,000 mcg PO DAILY RF: 0 calcium carb-magnesium carb PO RF: 0 acetaminophen [Tylenol] 325 mg tablet 650 mg PO BID PRN (Reason: Pain 1-10 Or Fever) RF: 0 nystatin 1 APPLIC bottle 1 applic TOPICAL BID RF: 0 potassium chloride 20 MEQ tablet 20 meq PO DAILY Qty: 30 RF: 0 omega-3 fatty acids Capsule 1,000 mg PO DAILY RF: 0 ferrous sulfate 325 MG tablet 325 mg PO DAILY RF: 0 vitamin B complex [B Complex-Vitamin B12] Tablet 1 tab PO DAILY RF: 0 lisinopril 20 mg tablet 20 mg PO DAILY Qty: 90 RF: 3 pantoprazole 40 mg tablet,delayed release (DR/EC) 40 mg PO DAILY Qty: 90 RF: 3 metoprolol tartrate 50 mg tablet 50 mg PO BID Qty: 60 RF: 0 warfarin 5 mg tablet 5 mg PO DAILY Qty: 30 RF: 0 diltiazem HCl 120 mg capsule,extended release 24hr 120 mg PO DAILY Qty: 30 RF: 0 Referrals / Follow Up: Emily Husain MD [Primary Care Provider] - Within 2 Weeks Disposition Disposition (needs filled in before D/C Order can be placed): Detention Facility Documented by User: Dr. Balbir Lyon MD 11/17/20 11:47 Providers Date of Admission: 11/13/20 Reason For Visit: DEBILITY, AFIB, HYPOTENSION Medications at Discharge Home Medications Circulation Vein Support PO 07/05/19 acetaminophen 325 mg tablet 650 mg PO BID PRN tab 07/05/19 calcium carb-magnesium carb PO 07/05/19 cholecalciferol (vitamin D3) 125 mcg (5,000 unit) capsule 2,000 mcg PO DAILY 07/05/19 lisinopril 20 mg tablet 20 mg PO DAILY #90 tab 07/09/19 pantoprazole 40 mg tablet,delayed release 40 mg PO DAILY #90 tab 04/08/20 nystatin 1 applic TOPICAL BID bottle 08/20/20 potassium chloride 20 meq PO DAILY #30 tablet 08/20/20 diltiazem HCl 120 mg capsule,extended release 24 hr 120 mg PO DAILY #30 cap 10/16/20 metoprolol tartrate 50 mg tablet 50 mg PO BID #60 tab 10/16/20 warfarin 5 mg tablet 5 mg PO DAILY #30 tab 10/16/20 ferrous sulfate 325 mg PO DAILY 11/13/20 omega-3 fatty acids 1,000 mg PO DAILY 11/13/20 vitamin B complex [B Complex-Vitamin B12] 1 tab PO DAILY 11/13/20 Hospital Course Operations None Summary of Care Provided Hospital Course: This patient was seen in conjunction with Tony Kraft PA-C. I have independently interviewed and examined the patient and reviewed pertinent historical, laboratory, and other data. Please refer to Tony Kraft PA-C's note for details of this patient's presentation, findings, and recommendations. I have reviewed Tony Kraft PA-C's note and concur with documented patricia zavala. In brief, patient is a 60-year-old lady morbidly obese with BMI of 72 admitted with progressive generalized weakness Assessment: 1. Physical debility 2. Paroxysmal A. fib 3. History of pulmonary embolism 4. Generalized osteoarthritis 5. Morbid obesity with BMI of 72 3. Supratherapeutic INR on admission 7. Chronic congestive heart failure with preserved ejection fraction 8. Essential hypertension Hospital course: As documented above ABG / Lab / Microbiology Data Result Diagrams: 11/17/20 05:14 11/17/20 05:14 Discharge Plan Admission Admit Date/Time: 11/13/20 20:32 Primary Reason for Your Visit: Debility Attending Provider: Balbir Lyon Primary Care Provider: Emily Husain Discharge Orders/Prescriptions Prescriptions: Continued Circulation Vein Support PO RF: 0 cholecalciferol (vitamin D3) 125 mcg (5,000 unit) capsule 2,000 mcg PO DAILY RF: 0 calcium carb-magnesium carb PO RF: 0 acetaminophen [Tylenol] 325 mg tablet 650 mg PO BID PRN (Reason: Pain 1-10 Or Fever) RF: 0 nystatin 1 APPLIC bottle 1 applic TOPICAL BID RF: 0 potassium chloride 20 MEQ tablet 20 meq PO DAILY Qty: 30 RF: 0 omega-3 fatty acids Capsule 1,000 mg PO DAILY RF: 0 ferrous sulfate 325 MG tablet 325 mg PO DAILY RF: 0 vitamin B complex [B Complex-Vitamin B12] Tablet 1 tab PO DAILY RF: 0 lisinopril 20 mg tablet 20 mg PO DAILY Qty: 90 RF: 3 pantoprazole 40 mg tablet,delayed release (DR/EC) 40 mg PO DAILY Qty: 90 RF: 3 metoprolol tartrate 50 mg tablet 50 mg PO BID Qty: 60 RF: 0 warfarin 5 mg tablet 5 mg PO DAILY Qty: 30 RF: 0 diltiazem HCl 120 mg capsule,extended release 24hr 120 mg PO DAILY Qty: 30 RF: 0 Referrals / Follow Up: Emily Husain MD [Primary Care Provider] - Within 2 Weeks Disposition Disposition (needs filled in before D/C Order can be placed): Detention Facility Charges/Coding Visit Charges OBSV E&M: 99606 Observation care discharge Hospital Course Operations None
--- NOTE | 2020-11-17 11:55 | CASEMGMT ---
Patient was approved to go to [facility]. 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
[2020-11-17] MEDS: Ferrous Sulfate 325 MG Tablet PO (13:33)
--- NOTE | 2020-11-17 15:31 | CASEMGMT ---
PHIL faxed orders to [facility] and [facility]. Completed a PASRR as patient is observation status. PHIL arranged for patient to get picked up at 1630 via bariatric cot. PHIL notified RN and departmental secretary. Plan: d/c to [facility] under skilled level of care on a PASRR as she is observation status. [facility] transported via bariatric cot. 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
== END 2020-11-17 11:28 ==
LOC: ED 20:01 → PCU 20:42
PROVIDERS: Physician Assistant; Admitting Provider Hospitalist; Emergency Provider Emergency Medicine; PCP Internal Medicine; Visit Provider Internal Medicine
DX: R53.81 Other malaise (principal); I48.0 Paroxysmal atrial fibrillation; I95.9 Hypotension, unspecified; E66.01 Morbid (severe) obesity due to excess calories; K21.9 Gastro-esophageal reflux disease without esophagitis; I50.42 Chronic combined systolic (congestive) and diastolic (congestive) heart failure; R15.9 Full incontinence of feces; I11.0 Hypertensive heart disease with heart failure; M15.9 Polyosteoarthritis, unspecified; R32 Unspecified urinary incontinence; R79.1 Abnormal coagulation profile; M79.89 Other specified soft tissue disorders; Z68.45 Body mass index [BMI] 70 or greater, adult; Z86.711 Personal history of pulmonary embolism; Z87.891 Personal history of nicotine dependence; Z79.899 Other long term (current) drug therapy; Z79.01 Long term (current) use of anticoagulants; Z86.718 Personal history of other venous thrombosis and embolism
CPT/HCPCS: 36415; 80048; 80076; 81001; 82040; 82306; 85025; 85610; 87086; 87088; 87186; 87426; 93005; 93971; 96360; 96361; 97110; 97162; 97166; 97530; 97535; 99218; 99285; J7040; P9612; A4216; G0378

== ENCOUNTER 2020-12-17 20:00 | Inpatient (IN) | payer MEDICARE, SELFPAY ==
[2020-11-13 21:03] VITALS: BMI 72.0
[2020-12-17] VITALS (7 sets, daily range): BP systolic 92–99; BP diastolic 50–79; PULSE 81–90; RESP 18–24; TEMP 33.7–36.6; O2SAT 94–96; BMI 76.6
--- NOTE | 2020-12-17 20:40 | EKG12_ITS ---
Test Reason : CP Blood Pressure : / mmHG Vent. Rate : 088 BPM Atrial Rate : 138 BPM P-R Int : 000 ms QRS Dur : 100 ms QT Int : 340 ms P-R-T Axes : 000 093 -45 degrees QTc Int : 411 ms Atrial fibrillation Rightward axis Low voltage QRS Incomplete right bundle branch block Nonspecific T wave abnormality Abnormal ECG Confirmed by OMAR STEWART, NICOLE ([id number]), industrial editor BENJI TONG ([id number]) on 12/21/2020 9:45:16 AM Referred By: INDRA Confirmed By:ENRIQUE NELSON MD
--- NOTE | 2020-12-17 20:55 | RAD_ITS ---
STUDY: X-RAY CHEST REASON FOR EXAM: Female, 60 years old. chest pain TECHNIQUE: Single AP portable view of the chest. COMPARISON: 07/18/2020. FINDINGS: Exam limited by patient''s size and especially overlying adipose pannus. Normal lung volumes. No definite infiltrates. No gross congestion or edema. Cannot exclude small effusions. There is mild cardiac enlargement. Normal mediastinum and anay. Normal visualized pulmonary arteries. Normal visualized aortic arch and descending thoracic aorta. Normal visualized thoracic spine. Normal visualized ribs, clavicles, and shoulders. There is no demonstrated abnormality of the visualized soft tissue structures of the upper abdomen. RAD/Chest 1 View (Portable) IMPRESSION: Significantly limited by patient size. No gross acute chest disease. Electronically Signed: Archie Shine MD at 21:19 EDT , Service support ,
[2020-12-17 21:11] LABS: Absolute Lymphocyte Count 0.54 X10^3/uL (0.83-4.51); Basophil# 0.04 X10^3/uL; Basophil% 0.9 % (0-1); Eosinophil# 0.26 X10^3/uL; Eosinophils% 5.8 % (0-5); Hematocrit 34.1 % (37-47); Hemoglobin 9.3 g/dL (12.0-15.0); Lymphocyte # 0.54 X10^3/ul (0.83-4.51); Mean Corp Hgb Conc 27.3 g/dL (32-36); Mean Corpuscular Hgb 21.8 pg (27.0-32.0); Monocyte# 0.62 X10^3/uL; Monocyte% 13.7 % (0-10); NRBC Flagged by Analyzer 0 % (0-5); Neutrophil # 3.04 X10^3/uL (2.7-7.7); Neutrophil % 67.4 % (47-70); POSITIVE DIFFERENTIAL YES; POSITIVE MORPHOLOGY YES; Platelet Count 184 K/mm3 (150-450); RBC Distribution Width CV 26.3 % (11.6-14.6); RBC Distribution Width SD 74.1 fl (35.1-43.9); Red Blood Count 4.26 M/mm3 (4.2-5.4); White Blood Count 4.5 K/mm3 (4.4-11.0)
--- NOTE | 2020-12-17 21:17 | EDS_ITS ---
HPI History of Present Illness Chief Complaint: Chest Pain Detail of Chief Complaint: Chest pain and shortness of breath that started this morning. Informant: patient Narrative Narrative: Patient presents to the emergency department complaint of chest pain or shortness of breath that started this morning. Patient states that it lasted a few minutes and then resolved but she is had a throughout the day. Patient states that she feels like she is filling up with fluid and has had some dyspnea. Patient described a pressure across her chest. She felt somewhat nauseated. Patient has history of A. fib as well as history of PE and history of chronic pain. Patient is not ambulatory. Patient is on 3 L home O2 at all times. Prior Similar Symptoms: No PFSH PFS Medical History (Updated 12/17/20 @ 22:[address] Sergio Frias, ) Arthritis Atrial fibrillation Blood clot in vein Carpal tunnel syndrome Chronic pain Depression Former smoker GERD (gastroesophageal reflux disease) History of left heart catheterization (LHC) (~07/20/20) Pulmonary embolism Home Medications acetaminophen 325 mg tablet 650 mg PO BID PRN tab 07/05/19 [History Last Taken Unknown] calcium carb-magnesium carb 250 - 300 mg PO DAILY 07/05/19 [History Last Taken Unknown] cholecalciferol (vitamin D3) 125 mcg (5,000 unit) capsule 2,000 mcg PO DAILY 07/05/19 [History Last Taken 07/17/20] nystatin 1 applic TOPICAL BID bottle 08/20/20 [Rx Last Taken Unknown] diltiazem HCl 120 mg capsule,extended release 24 hr 120 mg PO DAILY #30 cap 10/16/20 [Rx Last Taken Unknown] ferrous sulfate 325 mg PO DAILY 11/13/20 [History Last Taken Unknown] omega-3 fatty acids 1,000 mg PO DAILY 11/13/20 [History Last Taken Unknown] vitamin B complex [B Complex-Vitamin B12] 1 tab PO DAILY 11/13/20 [History Last Taken Unknown] furosemide [Lasix] 40 mg PO DAILY 12/17/20 [History Last Taken Unknown] lisinopril 10 mg PO DAILY 12/17/20 [History Last Taken Unknown] metoprolol tartrate 25 mg PO BID 12/17/20 [History Last Taken Unknown] omeprazole 20 mg PO DAILY 12/17/20 [History Last Taken Unknown] warfarin 3 mg PO DAILY 12/17/20 [History Last Taken Unknown] Allergy/AdvReac Type Severity Reaction Status Date / Time enoxaparin [From Lovenox] Allergy Severe Rash & Verified 12/17/20 20:02 Itching peach Allergy Severe Other Verified 12/17/20 20:02 green tea Allergy Intermediate Itching Verified 12/17/20 20:02 Family History Mother Diabetes High cholesterol Father Diabetes Heart disease Hypertension Sister Diabetes High cholesterol Brother Diabetes Surgical History History of cholecystectomy History of oral surgery Social History Smoking Status: Former smoker alcohol intake: never substance use type: does not use what type of physical activity do you participate in: none ROS ROS ED Review of Systems ROS Unobtainable: other Constitutional Constitutional ED: Reports lethargy; Denies chills, fever(s), sweats or weight loss Eyes Eyes: Denies blurry vision, change in vision or diplopia ENT ENT ED: Denies rhinorrhea or sore throat Cardiovascular Cardiovascular: Reports chest pain and racing heartbeat; Denies orthopnea Respiratory/Chest Respiratory/Chest: Reports dyspnea and dyspnea on exertion; Denies orthopnea or sputum Gastrointestinal Gastrointestinal: Denies abdominal pain, diarrhea, nausea or vomiting Genitourinary Genitourinary ED: Denies dysuria, hematuria or urinary frequency Musculoskeletal Musculoskeletal: Denies arthralgias, back pain, myalgias or neck pain Integumentary Denies abscess, Abrasions or rash Neurologic Neurologic: Denies headache(s) or weakness Psychiatric Psychiatric: Denies anxiety, depression or suicidal thoughts Endocrine Endocrinology: Denies polydipsia, polyphagia or polyuria Hematologic/Lymphatic Hematologic/Lymphatic: Reports other Details: Leg edema ; Denies easy bleeding, easy bruising or lymphadenopathy Allergic/Immunologic Allergic/Immunologic ED: Denies mouth swelling, tongue swelling or urticaria EXAM Physical Exam Const Vital Signs: 12/17/20 20:02 12/17/20 20:11 12/17/20 20:13 Temperature 92.6 F L Temperature Source Temporal Pulse Rate 88 Respiratory Rate 24 H Respiratory Effort Short of Breath Respiratory Depth Respiratory Pattern Tachypnea Blood Pressure 92/60 Blood Pressure Mean 70 Pulse Ox 94 Oxygen Delivery Method Nasal Cannula Nasal Cannula Oxygen Flow Rate (L/min) 3 3 12/17/20 20:42 12/17/20 21:01 12/17/20 22:26 Temperature Temperature Source Pulse Rate 81 90 Respiratory Rate 22 H 24 H Respiratory Effort Short of Breath Respiratory Depth Shallow Respiratory Pattern Tachypnea Blood Pressure 99/79 Blood Pressure Mean 85 Pulse Ox 95 94 96 Oxygen Delivery Method Nasal Cannula Nasal Cannula Nasal Cannula Oxygen Flow Rate (L/min) 3 3 3 12/17/20 22:45 Temperature Temperature Source Pulse Rate 86 Respiratory Rate 24 H Respiratory Effort Respiratory Depth Respiratory Pattern Blood Pressure 99/65 Blood Pressure Mean 76 Pulse Ox 95 Oxygen Delivery Method Room Air Oxygen Flow Rate (L/min) Positive well nourished and well developed General Appearance ED: well developed and NAD HEENT Reports TM's clear and moist mucous membranes normocephalic and atraumatic; Negative for trauma or tenderness Tympanic Membrane ED: Yes TM's clear Eyes PERRL and EOMs intact bilaterally General Eye ED: Negative for pale conjunctiva or scleral icterus Neck no lymphadenopathy, supple and no JVD General: Negative for tenderness Chest Wall inspection of chest normal and palpation of chest normal Chest: Negative for tenderness Resp normal respiratory effort and clear to auscultation bilaterally Effort and Inspection: Negative for respiratory distress or pain with movement Auscultation: rales, rhonchi and wheezes; Negative for diminished lung sounds Cardio regular rate, regular rhythm, S1 normal heart sound, S2 normal heart sound and no murmurs Peripheral Pulses: pulses 2+ throughout GI normal to inspection, nondistended, normoactive bowel sounds, soft to palpation, non-tender, non-distended and no masses Back/Spine no CVA tenderness and no thoracic nor lumbar tenderness Extremity normal to inspection Extremity Narrative: Patient with significant edema to both lower extremities of +3 that extends to the thighs and onto the abdomen. General Extremety ED: Yes edema General Extremity: edema Neuro oriented x3, CN's II-XII intact bilaterally, no sensory deficits noted and gait normal Sensorium / Orientation: awake, alert, oriented to person, oriented to place and oriented to time Motor Exam: strength 5/5 throughout and strength abnormal Psych mental status grossly normal Skin no rashes or lesions noted and no wounds Heart Score History: Moderately Suspicious ECG: Nonspecific Repolarization Age: >45 - <65 years Risk Factors: 1 or 2 Risk Factors Troponin: </= Normal Limit Score: 4 MDM MDM MDM Narrative Medical decision making narrative: Etiology of patient's chest discomfort unclear. She did respond to albuterol aerosol here and was given Solu-Medrol 125 mg IV. Patient's blood pressure was in the 90s and one-point dropped onto the 80s was given a 500 cc fluid bolus. I do not feel she is in overt heart failure. Patient will be admitted for observation. Lab Data Attestation: I reviewed the patient's lab results. Labs: Laboratory Results - last 24 hr 12/17/20 12/17/20 12/17/20 20:22 20:22 21:43 WBC 4.5 RBC 4.26 Hgb 9.3 L Hct 34.1 L MCV 80.0 L MCH 21.8 L MCHC 27.3 L RDW Std Deviation 74.1 H RDW Coeff of Claudia 26.3 H Plt Count 184 MPV TNP Immature Gran % (Auto) 0.200 Neut % (Auto) 67.4 Lymph % (Auto) 12.0 L [place] % (Auto) 13.7 H Eos % (Auto) 5.8 H Baso % (Auto) 0.9 Absolute Neuts (auto) 3.0 Absolute Lymphs (auto) 0.54 L Nucleated RBC % 0 Differential Comment SEE COMMENT Platelet Estimate ADEQUATE RBC Morphology N CHROM Hypochromasia 1+ Anisocytosis 1+ Microcytosis RARE Target Cells RARE Ovalocytes RARE PT INR Sodium Cancelled 137 Potassium Cancelled 5.8 H Chloride Cancelled 97 L Carbon Dioxide Cancelled 37.0 H Anion Gap Cancelled 3 L BUN Cancelled 55 H Creatinine Cancelled 2.62 H Estim Creat Clear Calc Cancelled 15.99 Est GFR (MDRD) Af Amer Cancelled 24 L Est GFR (MDRD) Non-Af Cancelled 20 L BUN/Creatinine Ratio Cancelled 21.0 H Glucose Cancelled 123 H Calcium Cancelled 9.3 Troponin I High Sens Cancelled 15.4 B-Natriuretic Peptide 12/17/20 12/17/20 21:43 21:43 WBC RBC Hgb Hct MCV MCH MCHC RDW Std Deviation RDW Coeff of Claudia Plt Count MPV Immature Gran % (Auto) Neut % (Auto) Lymph % (Auto) [place] % (Auto) Eos % (Auto) Baso % (Auto) Absolute Neuts (auto) Absolute Lymphs (auto) Nucleated RBC % Differential Comment Platelet Estimate RBC Morphology Hypochromasia Anisocytosis Microcytosis Target Cells Ovalocytes PT 34.3 H INR 3.5 Sodium Potassium Chloride Carbon Dioxide Anion Gap BUN Creatinine Estim Creat Clear Calc Est GFR (MDRD) Af Amer Est GFR (MDRD) Non-Af BUN/Creatinine Ratio Glucose Calcium Troponin I High Sens B-Natriuretic Peptide 294.9 H Radiography Chest X-Ray - ED: 1 View Diagnostic Testing: Radiology Impression Chest X-Ray 12/17/20 20:55 IMPRESSION: Significantly limited by patient size. No gross acute chest disease. Electronically Signed: Archie Shine MD at 21:19 EDT , Service support , 1 view chest x-ray obtained interpreted by myself as no acute disease process. Radiology in agreement. EKG Initial EKG: Attestation: I personally reviewed and interpreted this EKG as follows: Comments: EKG obtained on arrival shows atrial fibrillation with a ventricular rate of 88 bpm with incomplete right bundle branch block and nonspecific ST changes. Prior: Unchanged Discharge Plan Triage Chief Complaint: Chest Pain ED Provider: Sergio Frias Dx/Rx/DC Orders Clinical Impression: Chest pain, Asthmatic bronchitis, Hypotension Prescriptions: No Action cholecalciferol (vitamin D3) 125 mcg (5,000 unit) capsule 2,000 mcg PO DAILY RF: 0 calcium carb-magnesium carb 250 - 300 mg PO DAILY RF: 0 acetaminophen [Tylenol] 325 mg tablet 650 mg PO BID PRN (Reason: Pain 1-10 Or Fever) RF: 0 nystatin 1 APPLIC bottle 1 applic TOPICAL BID RF: 0 omega-3 fatty acids Capsule 1,000 mg PO DAILY RF: 0 ferrous sulfate 325 MG tablet 325 mg PO DAILY RF: 0 vitamin B complex [B Complex-Vitamin B12] Tablet 1 tab PO DAILY RF: 0 furosemide [Lasix] 40 mg Tablet 40 mg PO DAILY RF: 0 omeprazole 20 mg Capsule,Delayed Release(Dr/Ec) 20 mg PO DAILY RF: 0 lisinopril 20 mg tablet 10 mg PO DAILY RF: 0 warfarin 5 mg tablet 3 mg PO DAILY RF: 0 metoprolol tartrate 50 mg tablet 25 mg PO BID RF: 0 diltiazem HCl 120 mg capsule,extended release 24hr 120 mg PO DAILY Qty: 30 RF: 0 Primary Care Provider: Emily Husain Referrals: Emily Husain MD [Primary Care Provider] - Disposition Disposition: Acute Care Hospital [facility]
[2020-12-17 21:28] LABS: Differential Indicated SCAN CRITERIA MET
[2020-12-17 21:38] LABS: Anisocytosis 1+; Hypochromasia 1+; Microcytosis RARE; Platelet Estimate ADEQUATE (ADEQ); Red Cell Morphology N CHROM NORMAL (NORM C&C)
[2020-12-17 21:39] LABS: Ovalocyte RARE; Target Cells RARE
[2020-12-17 22:12] LABS: International Normalized Ratio 3.5; Prothrombin Time (Protime)PT. 34.3 SECONDS (11.7-14.9)
[2020-12-17 22:18] LABS: BNP,B-Type NATRIURETIC PEPTIDE 294.9 pg/mL (0-100)
[2020-12-17 22:19] LABS: Anion Gap 3 (5-15); BUN 55 mg/dL (7-18); Calcium,Total 9.3 mg/dL (8.5-10.1); Chloride 97 mmol/L (98-107); Creatinine, Serum 2.62 mg/dL (0.55-1.02); EST Glomerular Filtration Rate 20 mL/min (>60); Est Glom Filt Rate - Afr Amer 24 mL/min (>60); Estimated Creatinine Clearance 15.99 ml/min; Glucose 123 mg/dL (74-106); Potassium 5.8 mmol/L (3.5-5.1); Sodium Level 137 mmol/L (136-145); Troponin-I HS 15.4 pg/mL (3.0-53.7)
[2020-12-17] MEDS: Ipratropium/Albuterol Sulfate 3 ML AMPUL.NEB INHALATION (22:26)
[2020-12-17] MEDS: HYDROcodone Bitartrate/Apap 5/325 Tablet PO (23:04)
[2020-12-17] MEDS: MethylPREDNISolone 125 MG/2 ML Vial IV (23:04)
--- NOTE | 2020-12-17 23:11 | PCM.HP.STD ---
Documented by User: GEORGIA DavisC 12/17/20 23:32 HPI - General General Date of Admission: 12/17/20 Date of Service: 12/17/20 Chief Complaint: Chest pain, shortness of breath HPI Narrative NICOLE RAUSCH, is a 60 F who presents with complaints of chest pain and shortness of breath over the past 2 to 3 days. Patient states that chest pain is intermittent and it worse 6 out of 10 and at best 0 out of 10. Patient states she has also been short of breath intermittently and believes she may be wheezing. Patient reports in the past couple months patient has been evaluated for chest pain and racing heart however she denies any cardiac issues. Patient denies fever, chills, cough, nausea, vomiting, constipation, diarrhea. [facility] Medical History Arthritis Atrial fibrillation Blood clot in vein Carpal tunnel syndrome Chronic pain Depression Former smoker GERD (gastroesophageal reflux disease) History of left heart catheterization (LHC) (~07/20/20) Pulmonary embolism Home Medications acetaminophen 325 mg tablet 650 mg PO BID PRN tab 07/05/19 [History Last Taken Unknown] calcium carb-magnesium carb 250 - 300 mg PO DAILY 07/05/19 [History Last Taken Unknown] cholecalciferol (vitamin D3) 125 mcg (5,000 unit) capsule 2,000 mcg PO DAILY 07/05/19 [History Last Taken 07/17/20] nystatin 1 applic TOPICAL BID bottle 08/20/20 [Rx Last Taken Unknown] diltiazem HCl 120 mg capsule,extended release 24 hr 120 mg PO DAILY #30 cap 10/16/20 [Rx Last Taken Unknown] ferrous sulfate 325 mg PO DAILY 11/13/20 [History Last Taken Unknown] omega-3 fatty acids 1,000 mg PO DAILY 11/13/20 [History Last Taken Unknown] vitamin B complex [B Complex-Vitamin B12] 1 tab PO DAILY 11/13/20 [History Last Taken Unknown] furosemide [Lasix] 40 mg PO DAILY 12/17/20 [History Last Taken Unknown] lisinopril 10 mg PO DAILY 12/17/20 [History Last Taken Unknown] metoprolol tartrate 25 mg PO BID 12/17/20 [History Last Taken Unknown] omeprazole 20 mg PO DAILY 12/17/20 [History Last Taken Unknown] warfarin 3 mg PO DAILY 12/17/20 [History Last Taken Unknown] Allergy/AdvReac Type Severity Reaction Status Date / Time enoxaparin [From Lovenox] Allergy Severe Rash & Verified 12/17/20 20:02 Itching peach Allergy Severe Other Verified 12/17/20 20:02 green tea Allergy Intermediate Itching Verified 12/17/20 20:02 Family History Mother Diabetes High cholesterol Father Diabetes Heart disease Hypertension Sister Diabetes High cholesterol Brother Diabetes Surgical History History of cholecystectomy History of oral surgery Social History Smoking Status: Former smoker alcohol intake: never substance use type: does not use what type of physical activity do you participate in: none ROS Constitutional Constitutional: Denies anorexia, chills, fatigue, fever(s) or weakness Cardiovascular Cardiovascular: Reports chest pain; Denies edema or palpitations Respiratory/Chest Respiratory/Chest: Reports shortness of breath at rest, shortness of breath with exertion and wheezing; Denies cough Gastrointestinal Gastrointestinal: Denies abdominal pain, constipation, diarrhea, nausea or vomiting Genitourinary Genitourinary: Denies dysuria Musculoskeletal Musculoskeletal: Denies back pain, extremity pain, joint pain or joint stiffness Integumentary Integumentary: Denies dry skin Neurologic Neurologic: Denies abnormal speech, confusion, dizziness, focal weakness or headache(s) Psychiatric Psychiatric: Denies anxiety or depression Endocrine Endocrinology: Denies change in body appearance Hematologic/Lymphatic Hematologic/Lymphatic: Reports easy bruising; Denies easy bleeding Vital Signs Vital Signs Vital Signs: 12/17/20 20:02 12/17/20 20:11 12/17/20 20:13 Temperature 92.6 F L Temperature Source Temporal Pulse Rate 88 Respiratory Rate 24 H Respiratory Effort Short of Breath Respiratory Depth Respiratory Pattern Tachypnea Blood Pressure 92/60 Blood Pressure Mean 70 Pulse Ox 94 Oxygen Delivery Method Nasal Cannula Nasal Cannula Oxygen Flow Rate (L/min) 3 3 12/17/20 20:42 12/17/20 21:01 12/17/20 22:26 Temperature Temperature Source Pulse Rate 81 90 Respiratory Rate 22 H 24 H Respiratory Effort Short of Breath Respiratory Depth Shallow Respiratory Pattern Tachypnea Blood Pressure 99/79 Blood Pressure Mean 85 Pulse Ox 95 94 96 Oxygen Delivery Method Nasal Cannula Nasal Cannula Nasal Cannula Oxygen Flow Rate (L/min) 3 3 3 12/17/20 22:45 Temperature Temperature Source Pulse Rate 86 Respiratory Rate 24 H Respiratory Effort Respiratory Depth Respiratory Pattern Blood Pressure 99/65 Blood Pressure Mean 76 Pulse Ox 95 Oxygen Delivery Method Room Air Oxygen Flow Rate (L/min) Weight Weight: 392 lb 6.765 oz Body Mass Index (BMI) 76.6 Physical Exam Const alert and oriented x3 General Appearance: cooperative HEENT normocephalic and head/scalp atraumatic Eyes conjunctivae normal and no scleral icterus Neck no lymphadenopathy, supple and no JVD General: trachea midline Resp normal respiratory effort and normal air movement Auscultation: diminished lung sounds bilateral throughout Cardio S1 normal heart sound, S2 normal heart sound and peripheral pulses 2+ throughout Rhythm: abnormal rhythm other (A. fib, chronic) GI normal to inspection, nondistended, normoactive bowel sounds, soft to palpation and non-tender Extremity normal capillary refill and no clubbing, cyanosis or edema General Extremity: no tenderness to palpation of joints or extremities Skin General Skin Exam: no breakdown and turgor normal Lesions: no lesions Rashes: no rashes Neuro no focal motor deficits and no sensory deficits noted Speech: speech normal Motor Exam: general weakness Psych thought process normal, cooperative and affect normal Appearance: appropriate Results Lab / Micro Data Result Diagrams: 12/17/20 20:22 12/17/20 21:43 Labs: Laboratory Results - last 24 hr 12/17/20 20:22: WBC 4.5, RBC 4.26, Hgb 9.3 L, Hct 34.1 L, MCV 80.0 L, MCH 21.8 L, MCHC 27.3 L, RDW Std Deviation 74.1 H, RDW Coeff of Claudia 26.3 H, Plt Count 184, MPV TNP, Immature Gran % (Auto) 0.200, Neut % (Auto) 67.4, Lymph % (Auto) 12.0 L, [place] % (Auto) 13.7 H, Eos % (Auto) 5.8 H, Baso % (Auto) 0.9, Absolute Neuts (auto) 3.0, Absolute Lymphs (auto) 0.54 L, Nucleated RBC % 0, Differential Comment SEE COMMENT, Platelet Estimate ADEQUATE, RBC Morphology N CHROM, Hypochromasia 1+, Anisocytosis 1+, Microcytosis RARE, Target Cells RARE, Ovalocytes RARE 12/17/20 20:22: Sodium Cancelled, Potassium Cancelled, Chloride Cancelled, Carbon Dioxide Cancelled, Anion Gap Cancelled, BUN Cancelled, Creatinine Cancelled, Estim Creat Clear Calc Cancelled, Est GFR (MDRD) Af Amer Cancelled, Est GFR (MDRD) Non-Af Cancelled, BUN/Creatinine Ratio Cancelled, Glucose Cancelled, Calcium Cancelled, Troponin I High Sens Cancelled 12/17/20 21:43: Sodium 137, Potassium 5.8 H, Chloride 97 L, Carbon Dioxide 37.0 H, Anion Gap 3 L, BUN 55 H, Creatinine 2.62 H, Estim Creat Clear Calc 15.99, Est GFR (MDRD) Af Amer 24 L, Est GFR (MDRD) Non-Af 20 L, BUN/Creatinine Ratio 21.0 H, Glucose 123 H, Calcium 9.3, Troponin I High Sens 15.4 12/17/20 21:43: PT 34.3 H, INR 3.5 12/17/20 21:43: B-Natriuretic Peptide 294.9 H Radiology Impression Chest X-Ray 12/17/20 20:55 IMPRESSION: Significantly limited by patient size. No gross acute chest disease. Electronically Signed: Archie Shine MD at 21:19 EDT , Service support , Assessment & Plan Assessment/Plan (1) Chest pain: QUALIFIERS: Chest pain type: unspecified Qualified Code(s): R07.9 - Chest pain, unspecified (2) Asthmatic bronchitis: QUALIFIERS: Asthma complication type: uncomplicated Asthma persistence: intermittent Asthma severity: mild Qualified Code(s): J45.20 - Mild intermittent asthma, uncomplicated (3) Supratherapeutic INR: (4) Acute kidney injury: PLAN: 1. Chest pain -Admit to PCU for cardiac monitoring and observation -Unlikely cardiac in nature considering patient had normal cardiac catheterization with EF 55% 07/20/2020 -Will trend cardiac enzymes -Daily weights -CBC, CMP, PT with INR daily -EKG upon arrival to floor and as needed for patient complaint or arrhythmia, currently A. fib with rate 88 -BNP mildly elevated to 294.9, no peripheral edema noted, chest x-ray unremarkable for acute findings 2. Asthmatic bronchitis -Due to improved response in ER after receiving DuoNeb and Solu-Medrol will continue. -DuoNeb nebulizer treatments every 4 while awake along with every 2 as needed albuterol -IV Solu-Medrol 40 mg every 8 hour -Encourage incentive spirometry 3. Acute kidney injury -Creatinine elevated when compared to prior value, will hydrate patient with normal saline 100 ml/hr -Trend daily with CMP -Strict intake and output 4. Suprapubic INR -Will hold warfarin, PT/INR ordered daily 5. Hypotension -Likely secondary to the initiation of new antihypertensive -Due to acute kidney injury will hold Lasix and lisinopril at this time -Cardizem also held due to hypotension -Vital signs per protocol, trend BP and heart rate -Metoprolol continue for rate control, hold if systolic BP less than 100 or heart rate less than 55. DVT prophylaxis-no pharmacological prophylaxis indicated This patient was seen by ROCKY Davis under the supervision of Dr. Lane Documented by User: Dr. Gianna Lane MD 12/17/20 23:55 HPI - General General Date of Admission: 12/17/20 [facility] Medical History Arthritis Atrial fibrillation Blood clot in vein Carpal tunnel syndrome Chronic pain Depression Former smoker GERD (gastroesophageal reflux disease) History of left heart catheterization (LHC) (~07/20/20) Pulmonary embolism Home Medications acetaminophen 325 mg tablet 650 mg PO BID PRN tab 07/05/19 [History Last Taken Unknown] calcium carb-magnesium carb 250 - 300 mg PO DAILY 07/05/19 [History Last Taken Unknown] cholecalciferol (vitamin D3) 125 mcg (5,000 unit) capsule 2,000 mcg PO DAILY 07/05/19 [History Last Taken 07/17/20] nystatin 1 applic TOPICAL BID bottle 08/20/20 [Rx Last Taken Unknown] diltiazem HCl 120 mg capsule,extended release 24 hr 120 mg PO DAILY #30 cap 10/16/20 [Rx Last Taken Unknown] ferrous sulfate 325 mg PO DAILY 11/13/20 [History Last Taken Unknown] omega-3 fatty acids 1,000 mg PO DAILY 11/13/20 [History Last Taken Unknown] vitamin B complex [B Complex-Vitamin B12] 1 tab PO DAILY 11/13/20 [History Last Taken Unknown] furosemide [Lasix] 40 mg PO DAILY 12/17/20 [History Last Taken Unknown] lisinopril 10 mg PO DAILY 12/17/20 [History Last Taken Unknown] metoprolol tartrate 25 mg PO BID 12/17/20 [History Last Taken Unknown] omeprazole 20 mg PO DAILY 12/17/20 [History Last Taken Unknown] warfarin 3 mg PO DAILY 12/17/20 [History Last Taken Unknown] Allergy/AdvReac Type Severity Reaction Status Date / Time enoxaparin [From Lovenox] Allergy Severe Rash & Verified 12/17/20 20:02 Itching peach Allergy Severe Other Verified 12/17/20 20:02 green tea Allergy Intermediate Itching Verified 12/17/20 20:02 Family History Mother Diabetes High cholesterol Father Diabetes Heart disease Hypertension Sister Diabetes High cholesterol Brother Diabetes Surgical History History of cholecystectomy History of oral surgery Social History Smoking Status: Former smoker alcohol intake: never substance use type: does not use what type of physical activity do you participate in: none Results Lab / Micro Data Result Diagrams: 12/17/20 20:22 12/17/20 21:43 Charges/Coding Addendum Addendum: Patient seen by Magdalene HIDALGO under my supervision Patient is a 60 y/o female admitted from her [facility] with a complaint of chest pressure and shortness of breath which had been going on since the morning of admission. Chest pain was pressure like and retrosternal, with no aggravating or relieving factors. She also had shortness of breath, with associated orthopnea, PND and lower extremity as well as abdominal wall swelling. SHe denied any fever, chills, cough, palpitations, dizziness, nausea or vomiting. REview of systems was otherwise negative. O/E: Const alert, oriented x3 and no apparent distress, super morbid obesity HEENT head/scalp atraumatic and moist oral mucous membranes Head and Scalp: normocephalic Eyes PERRL, EOMs intact bilaterally and conjunctivae normal Neck no lymphadenopathy, supple and no JVD Resp normal respiratory effort, diminished breath sounds bibasally, no wheezes or crackles. Cardio afib, rate controlled. GI normal to inspection, nondistended, normoactive bowel sounds and soft to palpation, abdominal wall edema Extremity normal to inspection and full ROM, bilateral nonpitting edema Skin no rashes or lesions noted, no wounds and skin turgor normal Neuro CN's II-XII intact bilaterally Psych affect normal Vitals on admission were BP of 94/50, GA of 90, RR of 18 and temp of 98%; she was saturating at 94% on 2L of oxygen. Labs showed potassium of 5.8, with sodium of 137 and creatinine of 2.62 with baseline of 0.8; Hb was 9.3; initial high sensitivity troponin was 15.4 and BNP was 294.9. CXR showed no acute cardiopulmonary process. She is being admitted to be managed for chest pain to rule out ACS and acute on chronic heart failure as well as KANE and hyperkalemia. WIll diurese with IV lasix, cycle troponin. SL nitroglycerin prn; po aspirin 81mg daily. Give PO kayexalate 30mg daily, and trend potassium. She had a 2D echo in 07/26 which showed EF of 45%, unable to asses diastolic dysfunction, moderately dilated RV and moderate RV systolic dysfunction, and RVSP of 79mmhg. Titrate oxygen to maintain sats >90%. Hold lisinopril o/a of hyperkalemia. On cardizem and coumadin for afib. Patient's BP is running a bit low, and patient says her BP has been running low but she says it has been like this since her BP meds were adjusted. Will hold lisinopril and metoprolol. INR is 3.5. Will hold coumadin. For stress test tomorrow if troponins are negative. Code status: full code Patient counseled about differences between full code, DNRCC and DNRCCA. Patient elects to be full code. Total face to face time -16 mins Rest as per Magdalene Jones ENVIRONMENT[employer] PROTECTION SPECIALIST-C's note, which I have reviewed and endorsed. Visit Charges OBSV E&M: 91670 Initial observation care L2 Procedures Hospitalists Procedures: 22242 Advncd Care Plan 30 Min
[2020-12-18] VITALS (38 sets, daily range): BP systolic 73–136; BP diastolic 39–125; PULSE 78–121; RESP 8–26; TEMP 36.1–36.6; O2SAT 90–100; BMI 76.6
--- NOTE | 2020-12-18 00:23 | EKG12_ITS ---
Test Reason : CP ADMIT Blood Pressure : / mmHG Vent. Rate : 083 BPM Atrial Rate : 064 BPM P-R Int : 000 ms QRS Dur : 096 ms QT Int : 348 ms P-R-T Axes : 000 090 -23 degrees QTc Int : 408 ms Atrial fibrillation Low voltage QRS Nonspecific T wave abnormality Abnormal ECG When compared with ECG of 13-NOV-2020 18:05, No significant change was found Confirmed by OMAR STEWART, NICOLE ([id number]), society editor BENJI TONG ([id number]) on 12/21/2020 9:58:46 AM Referred By: ABDIAZIZ Confirmed By:ENRIQUE NELSON MD
[2020-12-18] MEDS: 0.9% Normal Saline 1,000 ML 100 ML IV ×2 (01:00→13:05)
[2020-12-18] MEDS: Ipratropium/Albuterol Sulfate 3 ML AMPUL.NEB INHALATION ×4 (01:01→10:37)
[2020-12-18 01:40] LABS: Troponin-I HS 16.3 pg/mL (3.0-53.7)
[2020-12-18 04:39] LABS: Troponin-I HS 14.7 pg/mL (3.0-53.7)
[2020-12-18] MEDS: 0.9% Saline Lock 10 ML Syringe IV ×5 (05:11→22:05)
[2020-12-18 07:10] LABS: Absolute Lymphocyte Count 0.18 X10^3/uL (0.83-4.51); Absolute Neutrophil Count 3.3 X10^3/uL (2.0-7.7); Basophil# 0.01 X10^3/uL; Basophil% 0.3 % (0-1); Eosinophil# 0.01 X10^3/uL; Eosinophils% 0.3 % (0-5); Hematocrit 32.8 % (37-47); Hemoglobin 9.2 g/dL (12.0-15.0); Lymphocyte # 0.18 X10^3/ul (0.83-4.51); Lymphocyte % 5.1 % (19-41); Mean Corpuscular Hgb 22.3 pg (27.0-32.0); Mean Corpuscular Volume 79.4 fL (81-99); Monocyte# 0.06 X10^3/uL; Monocyte% 1.7 % (0-10); NRBC Flagged by Analyzer 0 % (0-5); Neutrophil # 3.28 X10^3/uL (2.7-7.7); Neutrophil % 92.3 % (47-70); POSITIVE DIFFERENTIAL YES; POSITIVE MORPHOLOGY YES; Platelet Count 167 K/mm3 (150-450); RBC Distribution Width CV 25.5 % (11.6-14.6); RBC Distribution Width SD 71.8 fl (35.1-43.9); Red Blood Count 4.13 M/mm3 (4.2-5.4); White Blood Count 3.6 K/mm3 (4.4-11.0)
[2020-12-18 07:13] LABS: Differential Indicated SCAN CRITERIA MET
[2020-12-18 07:17] LABS: International Normalized Ratio 3.2; Prothrombin Time (Protime)PT. 32.3 SECONDS (11.7-14.9)
--- NOTE | 2020-12-18 07:33 | PN.HOSP_ITS ---
Subjective Subjective Patient since admission with increased oxygen requirement, increased work of breathing with some concern from a pulmonary status. ABG obtained in some retention noted therefore patient placed on BiPAP and pulmonary medicine evaluation requested. Patient is normally on 3 L nasal cannula chronically and has sleep apnea but has not been using her device. Patient denies any specific chest pain and discussed that her cardiac enzymes have remained completely normal and given her recent cardiac catheterization with unremarkable coronary arteries any stress testing had been deferred. Discussed with patient concern for asthma exacerbation with ongoing steroids. Despite current presentation patient denies severe dyspnea. Patient denies fevers, chills, nausea, emesis, abdominal pain. Objective Data Objective Data Vital Signs: Vital Signs Temp Pulse Resp BP Pulse Ox 97.8 F 101 H 22 H 106/61 95 12/18/20 05:05 12/18/20 06:39 12/18/20 05:36 12/18/20 05:05 12/18/20 05:05 Oxygen Flow Rate (L/min) 6 Oxygen Delivery Method Nasal Cannula Weight: 384 lb 7.779 oz Body Mass Index (BMI) 76.6 Intake & Output: Intake and Output for Last 24 Hours 12/16/20 12/17/20 12/18/20 23:59 23:59 23:59 Intake Total 550 / 550 Balance 550 / 550 Lab / Micro Data Result Diagrams: 12/18/20 06:50 12/18/20 06:50 Labs: Laboratory Results - last 24 hr 12/17/20 20:22: WBC 4.5, RBC 4.26, Hgb 9.3 L, Hct 34.1 L, MCV 80.0 L, MCH 21.8 L , MCHC 27.3 L, RDW Std Deviation 74.1 H, RDW Coeff of Claudia 26.3 H, Plt Count 184, MPV TNP, Immature Gran % (Auto) 0.200, Neut % (Auto) 67.4, Lymph % (Auto) 12.0 L , [place] % (Auto) 13.7 H, Eos % (Auto) 5.8 H, Baso % (Auto) 0.9, Absolute Neuts (auto) 3.0, Absolute Lymphs (auto) 0.54 L, Nucleated RBC % 0, Differential Comment SEE COMMENT, Platelet Estimate ADEQUATE, RBC Morphology N CHROM, Hypochromasia 1+, Anisocytosis 1+, Microcytosis RARE, Target Cells RARE, Ovalocytes RARE 12/17/20 20:22: Sodium Cancelled, Potassium Cancelled, Chloride Cancelled, Carbon Dioxide Cancelled, Anion Gap Cancelled, BUN Cancelled, Creatinine Cancelled, Estim Creat Clear Calc Cancelled, Est GFR (MDRD) Af Amer Cancelled, Est GFR (MDRD) Non-Af Cancelled, BUN/Creatinine Ratio Cancelled, Glucose Cancelled, Calcium Cancelled, Troponin I High Sens Cancelled 12/17/20 21:43: Sodium 137, Potassium 5.8 H, Chloride 97 L, Carbon Dioxide 37.0 H, Anion Gap 3 L, BUN 55 H, Creatinine 2.62 H, Estim Creat Clear Calc 15.99, Est GFR (MDRD) Af Amer 24 L, Est GFR (MDRD) Non-Af 20 L, BUN/Creatinine Ratio 21.0 H , Glucose 123 H, Calcium 9.3, Troponin I High Sens 15.4 12/17/20 21:43: PT 34.3 H, INR 3.5 12/17/20 21:43: B-Natriuretic Peptide 294.9 H 12/18/20 01:12: Troponin I High Sens 16.3 12/18/20 03:40: Sodium Cancelled, Potassium Cancelled, Chloride Cancelled, Carbon Dioxide Cancelled, Anion Gap Cancelled, BUN Cancelled, Creatinine Cancelled, Est GFR (MDRD) Af Amer Cancelled, Est GFR (MDRD) Non-Af Cancelled, BUN/Creatinine Ratio Cancelled, Glucose Cancelled, Calcium Cancelled, Total Bilirubin Cancelled, AST Cancelled, ALT Cancelled, Alkaline Phosphatase Cancelled, Troponin I High Sens 14.7, Total Protein Cancelled, Albumin Cancelled, Globulin Cancelled, Albumin/Globulin Ratio Cancelled 12/18/20 06:50: WBC 3.6 L, RBC 4.13 L, Hgb 9.2 L, Hct 32.8 L, MCV 79.4 L, MCH 22.3 L, MCHC 28.0 L, RDW Std Deviation 71.8 H, RDW Coeff of Claudia 25.5 H, Plt Count 167, Immature Gran % (Auto) 0.300, Neut % (Auto) 92.3 H, Lymph % (Auto) 5.1 L, [place] % (Auto) 1.7, Eos % (Auto) 0.3, Baso % (Auto) 0.3, Absolute Neuts (auto) 3.3, Absolute Lymphs (auto) 0.18 L, Nucleated RBC % 0 12/18/20 06:50: PT 32.3 H, INR 3.2 Radiography Diagnostic Testing: Radiology Impression Chest X-Ray 12/17/20 20:55 IMPRESSION: Significantly limited by patient size. No gross acute chest disease. Electronically Signed: Archie Shine MD at 21:19 EDT , Service support , Physical Exam Narrative Physical Examination: General: Awake, alert, oriented x 3, seated upright in the PCU bed, fatigued appearing, increased respiratory rate. Skin: Normal color, normal turgor, no icterus, no cyanosis except bilateral lower extremity venous stasis skin changes. HEENT: AT/NC, EOMI, PERRLA, mildly dry MM. Lungs: Severely diminished breath sounds throughout, greater bases, increased respiratory rate, evidence of mild distress, no obvious rales, rhonchi or wheezing. Heart: Mildly tachycardic with regular rhythm; no gallop, rub audible. Abdomen: Soft, significantly morbidly obese, NTTP, difficult to assess distention given habitus, distant normal BS. Extremities: No cyanosis, no clubbing, bilateral ankle to proximal hernandez edema, see skin. Neurological: Patient awake, alert, oriented as noted, cognitive function intact; pupils equally reactive to light and accommodation, cranial nerves II- XII grossly normal, moving all 4 extremities, no focal deficits, strength severely global decrease secondary to acute presentation. Psychiatric: Affect appears fatigued appearing, evidence of distress, no acute evidence of depressive or anxiety feelings. Assessment & Plan Assessment/Plan (1) Acute on chronic respiratory failure with hypoxemia: PLAN: The patient is a 60 y/o F w/ PMHx: Morbid Obesity, STACEY not using CPAP, PAF on coumadin, Hx PE, GERD, OA, Chronic Asthma/Hypoventilation syndrome w/ Chronic Hypoxic Respiratory Failure (3L NC) who presents to the [facility] ED on 12/17/20 with history of increased dyspnea over the last 2 to 3 days with intermittent chest discomfort with wheezing prompting ED evaluation. 1. Acute on Chronic Hypoxic and Hypercarbic Respiratory Failure, Multifactorial, Acute on Chronic Asthma Exacerbation, Hypoventilation Syndrome, Suspected Volume Overload Component: Patient admitted to the PCU, maintained on monitor, initial concerns for potential cardiac etiology for presentation with chest discomfort however patient with unremarkable serial cardiac enzymes and per history recent cardiac catheterization therefore any stress testing was deferred and concern for asthma exacerbation with initiation of IV Solu-Medrol as well as aerosols. Patient with worsened respiratory status 12/18/20 AM, ABG obtained with evidence of hypoxia and hypercarbia with evidence of distress, ranjan ashley on BiPAP with pulmonary consultation with recommendation for discontinuation of any fluids, continued steroids as well as bronchodilators and BiPAP. BNP repeat further increased from to 94.9-->359.5. Serial cardiac enzymes unremarkable. ECHO w/ mild global LV dysfunction, EF 45%, moderately low elated RV, moderate global RV systolic dysfunction, moderately enlarged LA and RA, moderate TVI, RVSP 79 mmHg. Given patient current hypotension have deferred any IV Lasix usage but ideally if improves administer IV Lasix. Given ongoing worsening status discussed again with pulmonary medicine and will transition to the ICU to be cautious. Pending further status may require initiation of pressors to be able to use IV Lasix. SNUG franny wraps being placed. TSH, Mag pending. Pulmonary recommended repeat pulmonary function studies and polysomnogram outpatient once appropriate. 2. Acute kidney injury on CKD stage III, Unclear subtype: Secondary to acute presentation as noted and medications. Admission BUN/Cr 55/2.62, prior baseline creatinine noted to be 0.8-1.2. Initially hydrated, given concern for worsening respiratory status with concern for volume overload as etiology holding any further IV fluids, will hold nephrotoxic regimen however aside from IV Lasix if able to use as noted above #1, obtain FeNa assessment as well as renal US per Pulmonary recommendation, although with habitus may not be well visualized. 12/18/2020 BUN/creatinine 54/2.65. 3. Chronic anemia, microcytic, iron deficiency: Admission hemoglobin 9.3, baseline prior 8, repeat hemoglobin 12/18/2020 9.2, MCV 79.4, continued on iron supplementation, continue to trend. 4. STACEY: Patient has not been compliant with any CPAP outpatient, will need repeat testing, continue BiPAP with naps and nightly as well as currently as noted above. 5. PAF: We will continue diltiazem as able given transiently low blood pressure in addition to metoprolol, continued INR trending with hold initially upon admission with INR 3.5, repeat 12/18/2020 INR 3.2, will repeat 12/20/2019 1 AM and if appropriate resume. 6. Hypertension: Patient with low BP, KANE, continued on metoprolol and diltiazem with hold parameters, holding lisinopril and Lasix given KANE as noted; however, some concern for possible overload as etiology for worsening respiratory status, fluids have been discontinued as noted. 7. Hyperlipidemia: Not on regimen, FLP in AM. 8. Morbid Obesity: Weight loss and lifestyle changes encouraged, nutrition consulted. 9. GERD: We will maintain on PPI. 10. DVT prophylaxis: SCDs, continue INR trending and resume Coumadin once appropriate level. 11. CODE STATUS: Full code. Charges/Coding Visit Charges Inpatient E&M: 32817 Subs Hosp L3
[2020-12-18] MEDS: Acetaminophen 325 MG Tablet 650 MG PO ×2 (07:55→14:39)
[2020-12-18] MEDS: Ondansetron 4 MG/2 ML Vial IV (07:55)
[2020-12-18 08:01] LABS: ALB/GLOB Ratio 0.7 RATIO (0.9-2.4); AST(SGOT) 22 U/L (15-37); Alanine Aminotransfer ALT/SGPT 18 U/L (13-56); Albumin, Serum 3.3 g/dL (3.2-5.0); Alkaline Phosphatase 73 U/L (45-117); Anion Gap 5 (5-15); BUN 54 mg/dL (7-18); BUN/Creat Ratio 20.4 RATIO (10-20); Calcium,Total 9.1 mg/dL (8.5-10.1); Chloride 100 mmol/L (98-107); Creatinine, Serum 2.65 mg/dL (0.55-1.02); EST Glomerular Filtration Rate 19 mL/min (>60); Est Glom Filt Rate - Afr Amer 24 mL/min (>60); Estimated Creatinine Clearance 15.81 ml/min; Globulin 4.8 g/dL (2.2-4.2); Glucose 124 mg/dL (74-106); Potassium 5.9 mmol/L (3.5-5.1); Protein, Total 8.1 g/dL (6.4-8.2); Sodium Level 136 mmol/L (136-145); Troponin-I HS 16.8 pg/mL (3.0-53.7)
[2020-12-18 08:44] LABS: Procalcitonin 0.16 ng/mL (0.00-0.09)
[2020-12-18 10:17] LABS: Pathologist Review Reviewed
[2020-12-18 10:22] LABS: BNP,B-Type NATRIURETIC PEPTIDE 359.5 pg/mL (0-100)
[2020-12-18 11:10] LABS: Base Excess 4 mmol/L (-2 to +2); Bicarbonate 30.2 mmol/L (22-26); Blood Gas Specimen Type ART; O2 Delivery Device Cannula; PO2 63 mmHG (75-100); SITE L Brach; SO2 89 % (95-99); Total Carbon Dioxide 32 mmol/L; pCO2 58.7 mmHg (35-45); pH 7.32 (7.35-7.45)
--- NOTE | 2020-12-18 12:54 | CASEMGMT ---
Patient is from [facility]. PHIL faxed information to Annmarie with [place]. PHIL also spoke with patient and she confirmed her plans are to return to [place]. She declined list of nursing homes as she wants to return to [place]. PHIL also told her that she needs to participate in therapy otherwise her insurance will not approve her to go back to [place] if she does not participate in therapy. She verbalized understanding. Plan: d/c back to [place] pending insurance approval. Sagrario ESPINOZA
--- NOTE | 2020-12-18 12:57 | CON.PCM.CC_ITS ---
Assessment & Plan Assessment/Plan (1) Acute on chronic respiratory failure with hypoxemia: PLAN: RECOMMENDATIONS: 1. Discontinue supplemental IV fluids. 2. Discontinue IV morphine. 3. Continue scheduled bronchodilator therapy and steroids. 4. Wean supplemental oxygen as tolerated. 5. Recommend empiric utilization of BiPAP with naps and nightly. IMPRESSIONS: 1. Acute on chronic combined respiratory failure Likely multifactorial in etiology with possible untreated obstructive lung disease, untreated STACEY, alveolar hypoventilation secondary to obesity and decompensated heart failure with preserved ejection fraction likely contrib uting. Prior echocardiogram in July did reveal an ejection fraction of 45%. However, the patient did have moderate global RV systolic dysfunction with a right ventricular systolic pressure estimated to be 79 mmHg. I would strongly recommend that the continuous fluids be discontinued. Agree with continuing scheduled bronchodilators and steroids for now. Wean supplemental oxygen as tolerated. The patient should ideally be maintained on BiPAP therapy, at a minimum, with naps and nightly. She would benefit from further outpatient pulmonary optimization after discharge. Again, pulmonary function studies and polysomnogram would be beneficial. 2. History of obstructive sleep apnea Recommend outpatient pulmonary follow-up so that repeat sleep study can be co mpleted and the patient restarted on nocturnal Pap therapy, as clinically indicated. In the interim, I would recommend empiric utilization of BiPAP therapy with naps and nightly. 3. RV dysfunction/pulmonary hypertension The patient likely has secondary pulmonary hypertension to a number of different etiologies. Ideally, the patient will require further outpatient testing for optimization. I would recommend that fluids be discontinued. Lasix could be considered once the patient's renal function improves. 4. Acute kidney injury Unclear etiology. Could be secondary to prolonged hemodynamic instability. Regardless, I would recommend that continuous fluids be discontinued, given the patient's history of pulmonary hypertension and RV dysfunction. Consider obtaining a renal ultrasound. 5. Super morbid obesity/atrial fibrillation with RVR/history of tobacco dependency Complicates care, management, recovery and prognosis. Continue home medications as indicated. This note was generated with BrandShieldation software. It may contain incorrect words, spelling, and punctuation that were not noted in checking the note before signing. HPI Consult Data Date of Consult: 12/19/20 HPI Narrative Reason for Consultation: Acute on chronic hypoxemic respiratory failure HPI Narrative: The patient is a 60-year-old female, with a history as outlined below, who presented to the emergency department on December 17 with complaints of gradually worsening shortness of breath. The patient has a history of chronic hypoxemic respiratory failure with a baseline requirement of 3 L/min. She currently resides at a half-way facility. The patient does have a prior smoking history of upwards of 1.5 packs of cigarettes per day x35 years, having quit completely in 2007. 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 Additionally, the patient did report having been diagnosed with obstructive sleep apnea multiple years ago, but has been noncompliant with the use of nocturnal Pap therapy for at least 2 years. On presentation to the emergency department, the patient was noted to be afebrile with tenuous hemodynamics. She was notably tachypneic as well. Initial laboratory evaluation revealed a normal white blood cell count. She did have some evidence of mild peripheral eosinophilia. Coagulation profile revealed an INR of 3.5. Chemistry profile was notable for a bicarbonate of 37 and creatinine of 2.62. BNP was elevated to 300. Troponin was negative. Chest x-ray was quite limited due to the patient's size but did not demonstrate any acute cardiopulmonary process. The patient was placed on scheduled aerosol treatments and IV steroids. She was subsequently admitted to the progressive care unit for further management. [facility] Medical History (Updated 12/19/20 @ 01:09 by Dayanara Hamilton) Arthritis Atrial fibrillation Blood clot in vein Carpal tunnel syndrome Chronic pain Congestive heart failure (CHF) Depression Former smoker GERD (gastroesophageal reflux disease) History of left heart catheterization (LHC) (~07/20/20) Obesity Pulmonary embolism Home Medications acetaminophen 325 mg tablet 650 mg PO BID PRN tab 07/05/19 [History Last Taken Unknown] calcium carb-magnesium carb 250 - 300 mg PO DAILY 07/05/19 [History Last Taken Unknown] cholecalciferol (vitamin D3) 125 mcg (5,000 unit) capsule 2,000 mcg PO DAILY 07/05/19 [History Last Taken 07/17/20] nystatin 1 applic TOPICAL BID bottle 08/20/20 [Rx Last Taken Unknown] diltiazem HCl 120 mg capsule,extended release 24 hr 120 mg PO DAILY #30 cap 10/16/20 [Rx Last Taken Unknown] ferrous sulfate 325 mg PO DAILY 11/13/20 [History Last Taken Unknown] omega-3 fatty acids 1,000 mg PO DAILY 11/13/20 [History Last Taken Unknown] vitamin B complex [B Complex-Vitamin B12] 1 tab PO DAILY 11/13/20 [History Last Taken Unknown] furosemide [Lasix] 40 mg PO DAILY 12/17/20 [History Last Taken Unknown] lisinopril 10 mg PO DAILY 12/17/20 [History Last Taken Unknown] metoprolol tartrate 25 mg PO BID 12/17/20 [History Last Taken Unknown] omeprazole 20 mg PO DAILY 12/17/20 [History Last Taken Unknown] warfarin 3 mg PO DAILY 12/17/20 [History Last Taken Unknown] Allergy/AdvReac Type Severity Reaction Status Date / Time enoxaparin [From Lovenox] Allergy Severe Rash & Verified 12/17/20 20:02 Itching peach Allergy Severe Other Verified 12/17/20 20:02 green tea Allergy Intermediate Itching Verified 12/17/20 20:02 Family History Mother Diabetes High cholesterol Father Diabetes Heart disease Hypertension Sister Diabetes High cholesterol Brother Diabetes Surgical History History of cholecystectomy History of oral surgery Social History Smoking Status: Former smoker alcohol intake: never substance use type: does not use what type of physical activity do you participate in: none ROS Constitutional Constitutional: Reports fatigue; Denies chills or fever(s) Eyes Eyes: Denies blurry vision or change in vision ENT HEENT: Denies dizziness, headache(s) or nasal congestion Cardiovascular Cardiovascular: Reports dyspnea and edema; Denies chest pain Respiratory/Chest Respiratory/Chest: Reports dyspnea and wheezing; Denies hemoptysis Gastrointestinal Gastrointestinal: Denies abdominal pain, diarrhea, nausea or vomiting Genitourinary Genitourinary: Denies difficulty urinating Musculoskeletal Musculoskeletal: Reports back pain; Denies arthralgias Integumentary Integumentary: Denies lesions Neurologic Neurologic: Denies abnormal gait or abnormal speech Endocrine Endocrinology: Reports fatigue Hematologic/Lymphatic Hematologic/Lymphatic: Denies easy bleeding or easy bruising Physical Exam Const alert and no apparent distress General Appearance: cooperative Nutritional Appearance: morbidly obese HEENT normocephalic and head/scalp atraumatic Eyes PERRL, EOMs intact bilaterally and conjunctivae normal Neck supple General: trachea midline Resp Effort and Inspection: tachypneic Auscultation: diminished lung sounds; Negative for rales, rhonchi or wheezes Cardio S1 normal heart sound and S2 normal heart sound Rhythm: abnormal rhythm GI normal to inspection, nondistended, normoactive bowel sounds Extremity no clubbing, cyanosis or edema Skin no rashes or lesions noted Neuro CN's II-XII intact bilaterally and no focal motor deficits Psych cooperative and affect normal Lab / Micro Data Result Diagrams: 12/19/20 04:20 12/19/20 04:20 Labs: Laboratory Results - last 24 hr 12/17/20 20:22: WBC 4.5, RBC 4.26, Hgb 9.3 L, Hct 34.1 L, MCV 80.0 L, MCH 21.8 L , MCHC 27.3 L, RDW Std Deviation 74.1 H, RDW Coeff of Claudia 26.3 H, Plt Count 184, MPV TNP, Immature Gran % (Auto) 0.200, Neut % (Auto) 67.4, Lymph % (Auto) 12.0 L , [place] % (Auto) 13.7 H, Eos % (Auto) 5.8 H, Baso % (Auto) 0.9, Absolute Neuts (auto) 3.0, Absolute Lymphs (auto) 0.54 L, Nucleated RBC % 0, Differential Comment SEE COMMENT, Platelet Estimate ADEQUATE, RBC Morphology N CHROM, Hypochromasia 1+, Anisocytosis 1+, Microcytosis RARE, Target Cells RARE, Ovalocytes RARE 12/17/20 20:22: Sodium Cancelled, Potassium Cancelled, Chloride Cancelled, Carbon Dioxide Cancelled, Anion Gap Cancelled, BUN Cancelled, Creatinine Cancelled, Estim Creat Clear Calc Cancelled, Est GFR (MDRD) Af Amer Cancelled, Est GFR (MDRD) Non-Af Cancelled, BUN/Creatinine Ratio Cancelled, Glucose Cancelled, Calcium Cancelled, Troponin I High Sens Cancelled 12/17/20 21:43: Sodium 137, Potassium 5.8 H, Chloride 97 L, Carbon Dioxide 37.0 H, Anion Gap 3 L, BUN 55 H, Creatinine 2.62 H, Estim Creat Clear Calc 15.99, Est GFR (MDRD) Af Amer 24 L, Est GFR (MDRD) Non-Af 20 L, BUN/Creatinine Ratio 21.0 H , Glucose 123 H, Calcium 9.3, Troponin I High Sens 15.4 12/17/20 21:43: PT 34.3 H, INR 3.5 12/17/20 21:43: B-Natriuretic Peptide 294.9 H 12/18/20 01:12: Troponin I High Sens 16.3 12/18/20 03:40: Sodium Cancelled, Potassium Cancelled, Chloride Cancelled, Carbon Dioxide Cancelled, Anion Gap Cancelled, BUN Cancelled, Creatinine Cancelled, Est GFR (MDRD) Af Amer Cancelled, Est GFR (MDRD) Non-Af Cancelled, BUN/Creatinine Ratio Cancelled, Glucose Cancelled, Calcium Cancelled, Total Bilirubin Cancelled, AST Cancelled, ALT Cancelled, Alkaline Phosphatase Cancelled, Troponin I High Sens 14.7, Total Protein Cancelled, Albumin Cancelled, Globulin Cancelled, Albumin/Globulin Ratio Cancelled 12/18/20 06:50: WBC 3.6 L, RBC 4.13 L, Hgb 9.2 L, Hct 32.8 L, MCV 79.4 L, MCH 22.3 L, MCHC 28.0 L, RDW Std Deviation 71.8 H, RDW Coeff of Claudia 25.5 H, Plt Count 167, Immature Gran % (Auto) 0.300, Neut % (Auto) 92.3 H, Lymph % (Auto) 5.1 L, [place] % (Auto) 1.7, Eos % (Auto) 0.3, Baso % (Auto) 0.3, Absolute Neuts (auto) 3.3, Absolute Lymphs (auto) 0.18 L, Nucleated RBC % 0, Diff Path Review Reviewed 12/18/20 06:50: PT 32.3 H, INR 3.2 12/18/20 06:50: Sodium 136, Potassium 5.9 H, Chloride 100, Carbon Dioxide 31.0, Anion Gap 5, BUN 54 H, Creatinine 2.65 H, Estim Creat Clear Calc 15.81, Est GFR (MDRD) Af Amer 24 L, Est GFR (MDRD) Non-Af 19 L, BUN/Creatinine Ratio 20.4 H, Glucose 124 H, Calcium 9.1, Total Bilirubin 1.30 H, AST 22, ALT 18, Alkaline Phosphatase 73, Troponin I High Sens 16.8, Total Protein 8.1, Albumin 3.3, Globulin 4.8 H, Albumin/Globulin Ratio 0.7 L 12/18/20 06:50: B-Natriuretic Peptide 359.5 H 12/18/20 08:02: Procalcitonin 0.16 H Micro: Microbiology 12/18/20 10:50 Mucosa - Nasopharyngeal SARS-CoV-2 Antigen (Rapid) - Final 12/18/20 08:30 Interface Orders Respiratory Panel (PCR) - Final ABG Data ABG results: ABG 12/18/20 11:05 Specimen Type ART Sample Site L Brach pH 7.32 L Bicarbonate Actual 30.2 H Total CO2 32 Base Excess 4 H O2 Saturation 89 L ABG pCO2 58.7 H ABG pO2 63 L O2 Delivery Device Cannula Liter Flow 9.0 Radiology Impression Chest X-Ray 12/17/20 20:55 IMPRESSION: Significantly limited by patient size. No gross acute chest disease. Electronically Signed: Archie Shine MD at 21:19 EDT , Service support , Charges/Coding Visit Charges Inpatient E&M: 74307 Init Hosp L3
[2020-12-18] MEDS: Ferrous Sulfate 325 MG Tablet PO (13:06)
--- NOTE | 2020-12-18 14:16 | US_ITS ---
STUDY: RENAL ULTRASOUND - COMPLETE REASON FOR EXAM: Female, 60 years old. KANE TECHNIQUE: Ultrasound evaluation of the kidneys was performed with real-time and static palmer-scale imaging. COMPARISON: CT scan of 07/18/2020. FINDINGS: Markedly limited by patient''s size. RIGHT KIDNEY: Normal location of the right kidney, which is normal in size. The right kidney measures 10.2 x 4.3 x 4.0 cm. There is a normal cortex of the right kidney. The renal cortex measures 1.3 cm. There is no right renal mass or cyst. There are no right renal calculi. There is no right hydronephrosis. DISTAL RIGHT URETER: There is non-visualization of the distal right ureter. There is no demonstrated right ureterovesical junction calculus. There is no demonstrated right ureteral jet. LEFT KIDNEY: Normal location of the left kidney, which is normal in size. The left kidney measures 9.9 x 5.3 x 4.8 cm. There is a normal cortex of the left kidney. The renal cortex measures 1.6 cm. There is no left renal mass or cyst. There are no left renal calculi. There is no left hydronephrosis. DISTAL LEFT URETER: There is non-visualization of the distal left ureter. There is no demonstrated left ureterovesical junction calculus. There is a visualized left ureteral jet. BLADDER: There is a Ya catheter emptying the bladder. US/Kidney and Bladder IMPRESSION: Markedly limited examination shows no gross acute abnormality of the kidneys. Electronically Signed: Archie Shine MD at 17:39 EDT , Service support ,
[2020-12-18] MEDS: LORazepam 2 MG/ML Syringe 0.5 MG IV (14:52)
[2020-12-18 15:17] LABS: Osmolality, Serum 308 mOsm/KG (280-301)
[2020-12-18] MEDS: Pantoprazole Sodium 20 MG Tablet PO (15:29)
[2020-12-18 15:35] LABS: Urine Sodium 13 mmol/L (Not Establ.)
[2020-12-18 15:49] LABS: Osmolality, Urine 425 mOsm/KG
--- NOTE | 2020-12-18 17:39 | NURSING ---
This RN called and gave report to Dayanara [employer] [employer].
[2020-12-18 18:05] LABS: Magnesium 2.2 mg/dL (1.6-2.6); Thyroid Stim Hormone (TSH) 2.34 uIU/mL (0.358-3.74)
[2020-12-18] MEDS: Furosemide 40 MG/4 ML Vial IV (18:58)
[2020-12-18] MEDS: Ipratropium 0.5 MG/2.5 ML SOLUTION INHALATION (19:00)
--- NOTE | 2020-12-18 19:00 | CPS ---
Decreased BIPAP pressures to 17/13 cm H2O for pt comfort, and decreased FIO2 to 40%.
[2020-12-19] VITALS (32 sets, daily range): BP systolic 82–121; BP diastolic 49–92; PULSE 93–120; RESP 8–25; TEMP 36.4–36.9; O2SAT 92–100
[2020-12-19 04:29] LABS: Absolute Neutrophil Count 4.8 X10^3/uL (2.0-7.7); Hematocrit 31.1 % (37-47); Hemoglobin 8.9 g/dL (12.0-15.0); Lymphocyte % 3.9 % (19-41); Mean Corp Hgb Conc 28.6 g/dL (32-36); Mean Corpuscular Hgb 22.3 pg (27.0-32.0); Mean Corpuscular Volume 77.9 fL (81-99); Monocyte# 0.12 X10^3/uL; Monocyte% 2.3 % (0-10); NRBC Flagged by Analyzer 0 % (0-5); Neutrophil # 4.84 X10^3/uL (2.7-7.7); Neutrophil % 93.4 % (47-70); POSITIVE DIFFERENTIAL YES; POSITIVE MORPHOLOGY YES; Platelet Count 170 K/mm3 (150-450); RBC Distribution Width CV 25.3 % (11.6-14.6); RBC Distribution Width SD 70.1 fl (35.1-43.9); Red Blood Count 3.99 M/mm3 (4.2-5.4); White Blood Count 5.2 K/mm3 (4.4-11.0)
[2020-12-19 04:37] LABS: International Normalized Ratio 4.2; Prothrombin Time (Protime)PT. 39.5 SECONDS (11.7-14.9)
[2020-12-19 04:49] LABS: Differential Indicated SCAN CRITERIA MET
[2020-12-19 04:58] LABS: Anisocytosis 2+; Target Cells 1+
--- NOTE | 2020-12-19 05:30 | PN.CC_ITS ---
Assessment & Plan Assessment/Plan (1) Acute on chronic respiratory failure with hypoxemia: PLAN: RECOMMENDATIONS: 1. Continue to wean supplemental oxygen as tolerated. 2. Continue BiPAP support, at a minimum, with naps and nightly. 3. Medical management of hyperkalemia. 4. Consider nephrology consultation. 5. Continue to hold Coumadin. 6. Continue bronchodilators and steroids. 7. Encourage incentive spirometer use. IMPRESSIONS: 1. Acute on chronic combined respiratory failure Likely multifactorial in etiology with possible untreated obstructive lung disease, untreated STACEY, alveolar hypoventilation secondary to obesity and d ecompensated heart failure with preserved ejection fraction likely contributing. Prior echocardiogram in July did reveal an ejection fraction of 45%. However, the patient did have moderate global RV systolic dysfunction with a right ventricular systolic pressure estimated to be 79 mmHg. Agree with continuing scheduled bronchodilators and steroids for now. Wean supplemental oxygen as tolerated. The patient should ideally be maintained on BiPAP therapy, at a minimum, with naps and nightly. She would benefit from further outpatient pulmonary optimization after discharge. Again, pulmonary function studies and polysomnogram would be beneficial. 2. History of obstructive sleep apnea Recommend outpatient pulmonary follow-up so that repeat sleep study can be c ompleted and the patient restarted on nocturnal Pap therapy, as clinically indicated. In the interim, I would recommend empiric utilization of BiPAP therapy with naps and nightly. 3. RV dysfunction/pulmonary hypertension The patient likely has secondary pulmonary hypertension to a number of different etiologies. Ideally, the patient will require further outpatient testing for optimization. Lasix could be considered once the patient's renal function improves. 4. Acute kidney injury Unclear etiology. Could be secondary to prolonged hemodynamic instability. Renal ultrasound was unremarkable. Recommend nephrology consultation at this t aden. 5. Super morbid obesity/atrial fibrillation with RVR/history of tobacco depende ncy Complicates care, management, recovery and prognosis. Continue home medications as indicated. This note was generated with [employer] dictation software. It may contain incorrect words, spelling, and punctuation that were not noted in checking the note before signing. Subjective Subjective The patient was seen and examined at the bedside this morning. Events from the last 24 hours have been reviewed. The patient is currently afebrile, hemodynamically stable and maintaining appropriate oxygen saturations on 6 L/min via nasal cannula. The patient did tolerate BiPAP overnight. She is currently documented to be overall net +2 L for the hospital admission. INR this morning was noted to be 4.2. Potassium is elevated at 6.0 with a creatinine of 2.86. Objective Data Objective Data The patient's most recent lab work, culture data and imaging studies have all been personally reviewed. Surface echocardiogram from July 2020 revealed mild global LV systolic dysfunction with an ejection fraction of 45%. The RV was moderately dilated with moderate global RV systolic dysfunction and a right ventricular systolic pressure estimated to be 79 mmHg. Rapid coronavirus antigen testing was negative. Respiratory viral panel was negative. Vital Signs: Vital Signs Temp Pulse Resp BP Pulse Ox 97.8 F 95 19 H 94/54 L 93 12/19/20 05:00 12/19/20 05:00 12/19/20 05:00 12/19/20 05:00 12/19/20 05:00 Oxygen Flow Rate (L/min) 6 Oxygen Delivery Method Nasal Cannula Weight: 174.4 kg Body Mass Index (BMI) 76.6 Intake & Output: Intake and Output for Last 24 Hours 12/17/20 12/18/20 12/19/20 23:59 23:59 23:59 Intake Total 2278.33 / 2278.33 Output Total 100 / 250 150 / 150 Balance 2178.33 / 2028.33 -150 / -150 Lab / Micro Data Attestation: I reviewed the patient's lab results. Result Diagrams: 12/19/20 04:20 12/19/20 04:20 Labs: Laboratory Results - last 24 hr 12/18/20 03:40: Sodium Cancelled, Potassium Cancelled, Chloride Cancelled, Carbon Dioxide Cancelled, Anion Gap Cancelled, BUN Cancelled, Creatinine Cancelled, Est GFR (MDRD) Af Amer Cancelled, Est GFR (MDRD) Non-Af Cancelled, BUN/Creatinine Ratio Cancelled, Glucose Cancelled, Calcium Cancelled, Total Bilirubin Cancelled, AST Cancelled, ALT Cancelled, Alkaline Phosphatase Cancelled, Total Protein Cancelled, Albumin Cancelled, Globulin Cancelled, Albumin/Globulin Ratio Cancelled 12/18/20 06:50: WBC 3.6 L, RBC 4.13 L, Hgb 9.2 L, Hct 32.8 L, MCV 79.4 L, MCH 22.3 L, MCHC 28.0 L, RDW Std Deviation 71.8 H, RDW Coeff of Claudia 25.5 H, Plt Count 167, Immature Gran % (Auto) 0.300, Neut % (Auto) 92.3 H, Lymph % (Auto) 5.1 L, [place] % (Auto) 1.7, Eos % (Auto) 0.3, Baso % (Auto) 0.3, Absolute Neuts (auto) 3.3, Absolute Lymphs (auto) 0.18 L, Nucleated RBC % 0, Diff Path Review R rad 12/18/20 06:50: PT 32.3 H, INR 3.2 12/18/20 06:50: Sodium 136, Potassium 5.9 H, Chloride 100, Carbon Dioxide 31.0, Anion Gap 5, BUN 54 H, Creatinine 2.65 H, Estim Creat Clear Calc 15.81, Est GFR (MDRD) Af Amer 24 L, Est GFR (MDRD) Non-Af 19 L, BUN/Creatinine Ratio 20.4 H, Glucose 124 H, Calcium 9.1, Total Bilirubin 1.30 H, AST 22, ALT 18, Alkaline Phosphatase 73, Troponin I High Sens 16.8, Total Protein 8.1, Albumin 3.3, Gl obulin 4.8 H, Albumin/Globulin Ratio 0.7 L 12/18/20 06:50: B-Natriuretic Peptide 359.5 H 12/18/20 06:50: Magnesium 2.2, TSH 2.34 12/18/20 08:02: Procalcitonin 0.16 H 12/18/20 08:02: Serum Osmolality 308 H 12/18/20 15:17: Urine Osmolality 425 12/18/20 15:17: Urine Creatinine 139.00 12/18/20 15:17: Ur Random Sodium 13 12/19/20 04:20: WBC 5.2, RBC 3.99 L, Hgb 8.9 L, Hct 31.1 L, MCV 77.9 L, MCH 22.3 L, MCHC 28.6 L, RDW Std Deviation 70.1 H, RDW Coeff of Claudia 25.3 H, Plt Count 170, Immature Gran % (Auto) 0.400, Neut % (Auto) 93.4 H, Lymph % (Auto) 3.9 L, [place] % (Auto) 2.3, Eos % (Auto) 0.0, Baso % (Auto) 0.0, Absolute Neuts (auto) 4.8, Absolute Lymphs (auto) 0.20 L, Nucleated RBC % 0, Anisocytosis 2+, Target Cells 1+ 12/19/20 04:20: PT 39.5 H, INR 4.2 H* Micro: Microbiology 12/18/20 10:50 Mucosa - Nasopharyngeal SARS-CoV-2 Antigen (Rapid) - Final 12/18/20 08:30 Interface Orders Respiratory Panel (PCR) - Final ABG Data ABG results: ABG 12/18/20 11:05 Specimen Type ART Sample Site L Brach pH 7.32 L Bicarbonate Actual 30.2 H Total CO2 32 Base Excess 4 H O2 Saturation 89 L ABG pCO2 58.7 H ABG pO2 63 L O2 Delivery Device Cannula Liter Flow 9.0 Radiography Diagnostic Testing: Radiology Impression Renal Ultrasound 12/18/20 14:16 IMPRESSION: Markedly limited examination shows no gross acute abnormality of the kidneys. Electronically Signed: Archie Shine MD at 17:39 EDT , Service support , Physical Exam Const alert and no apparent distress General Appearance: cooperative Nutritional Appearance: morbidly obese HEENT normocephalic, head/scalp atraumatic and moist oral mucous membranes Eyes PERRL, EOMs intact bilaterally and conjunctivae normal Neck supple General: trachea midline Resp Auscultation: diminished lung sounds; Negative for rales, rhonchi or wheezes Cardio regular rate, regular rhythm, S1 normal heart sound and S2 normal heart sound GI normal to inspection, nondistended, normoactive bowel sounds Extremity General Extremity: edema bilateral lower extremity; Negative for clubbing Skin General Skin Exam: venous stasis and dermatitis Neuro CN's II-XII intact bilaterally and no focal motor deficits Psych Mood & Affect: flat affect Charges/Coding Visit Charges Inpatient E&M: 80245 Subs Hosp L3
[2020-12-19 05:50] LABS: ALB/GLOB Ratio 0.7 RATIO (0.9-2.4); AST(SGOT) 20 U/L (15-37); Alanine Aminotransfer ALT/SGPT 17 U/L (13-56); Albumin, Serum 3.2 g/dL (3.2-5.0); Alkaline Phosphatase 66 U/L (45-117); Anion Gap 5 (5-15); BUN 62 mg/dL (7-18); BUN/Creat Ratio 21.7 RATIO (10-20); Calcium,Total 9.1 mg/dL (8.5-10.1); Chloride 99 mmol/L (98-107); Cholesterol 99 mg/dL (200); Creatinine, Serum 2.86 mg/dL (0.55-1.02); EST Glomerular Filtration Rate 18 mL/min (>60); Est Glom Filt Rate - Afr Amer 22 mL/min (>60); Estimated Creatinine Clearance 14.65 ml/min; Globulin 4.5 g/dL (2.2-4.2); Glucose 148 mg/dL (74-106); High Density Lipoprotein 32 mg/dL; Protein, Total 7.7 g/dL (6.4-8.2); Sodium Level 136 mmol/L (136-145); Triglycerides 61 mg/dL; Very Low Density Lipoprotein 12 mg/dL (5-40)
[2020-12-19] MEDS: 0.9% Saline Lock 10 ML Syringe IV (06:18)
--- NOTE | 2020-12-19 06:20 | PCM.PN.HOSP ---
Subjective Subjective Patient overnight with decent diuresis following initial Lasix and since then not marked output however respiratory status has improved. Patient is also less lethargic this morning. Did discuss case with nephrology who is evaluating with plan continue treatment of hyperkalemia, repeat labs at noon and initiation of very low-dose Lasix drip if blood pressure permits. Patient notes feeling better with less dyspnea, no marked coughing. Patient does report a significant family history of renal disease and kidney failure. Patient denies fevers, chills, nausea, emesis, abdominal pain, chest pain. Objective Data Objective Data Vital Signs: Vital Signs Temp Pulse Resp BP Pulse Ox 97.8 F 95 19 H 94/54 L 93 12/19/20 05:00 12/19/20 05:00 12/19/20 05:00 12/19/20 05:00 12/19/20 05:00 Oxygen Flow Rate (L/min) 6 Oxygen Delivery Method Nasal Cannula Weight: 384 lb 7.779 oz Body Mass Index (BMI) 76.6 Intake & Output: Intake and Output for Last 24 Hours 12/17/20 12/18/20 12/19/20 23:59 23:59 23:59 Intake Total 2278.33 / 2278.33 Output Total 100 / 250 150 / 150 Balance 2178.33 / 2028.33 -150 / -150 Lab / Micro Data Result Diagrams: 12/19/20 04:20 12/19/20 04:20 Labs: Laboratory Results - last 24 hr 12/18/20 03:40: Sodium Cancelled, Potassium Cancelled, Chloride Cancelled, Carbon Dioxide Cancelled, Anion Gap Cancelled, BUN Cancelled, Creatinine Cancelled, Est GFR (MDRD) Af Amer Cancelled, Est GFR (MDRD) Non-Af Cancelled, BUN/Creatinine Ratio Cancelled, Glucose Cancelled, Calcium Cancelled, Total Bilirubin Cancelled, AST Cancelled, ALT Cancelled, Alkaline Phosphatase Cancelled, Total Protein Cancelled, Albumin Cancelled, Globulin Cancelled, Albumin/Globulin Ratio Cancelled 12/18/20 06:50: WBC 3.6 L, RBC 4.13 L, Hgb 9.2 L, Hct 32.8 L, MCV 79.4 L, MCH 22.3 L, MCHC 28.0 L, RDW Std Deviation 71.8 H, RDW Coeff of Claudia 25.5 H, Plt Count 167, Immature Gran % (Auto) 0.300, Neut % (Auto) 92.3 H, Lymph % (Auto) 5.1 L, [place] % (Auto) 1.7, Eos % (Auto) 0.3, Baso % (Auto) 0.3, Absolute Neuts (auto) 3.3, Absolute Lymphs (auto) 0.18 L, Nucleated RBC % 0, Diff Path Review Reviewed 12/18/20 06:50: PT 32.3 H, INR 3.2 12/18/20 06:50: Sodium 136, Potassium 5.9 H, Chloride 100, Carbon Dioxide 31.0, Anion Gap 5, BUN 54 H, Creatinine 2.65 H, Estim Creat Clear Calc 15.81, Est GFR (MDRD) Af Amer 24 L, Est GFR (MDRD) Non-Af 19 L, BUN/Creatinine Ratio 20.4 H, Glucose 124 H, Calcium 9.1, Total Bilirubin 1.30 H, AST 22, ALT 18, Alkaline Phosphatase 73, Troponin I High Sens 16.8, Total Protein 8.1, Albumin 3.3, Globulin 4.8 H, Albumin/Globulin Ratio 0.7 L 12/18/20 06:50: B-Natriuretic Peptide 359.5 H 12/18/20 06:50: Magnesium 2.2, TSH 2.34 12/18/20 08:02: Procalcitonin 0.16 H 12/18/20 08:02: Serum Osmolality 308 H 12/18/20 15:17: Urine Osmolality 425 12/18/20 15:17: Urine Creatinine 139.00 12/18/20 15:17: Ur Random Sodium 13 12/19/20 04:20: WBC 5.2, RBC 3.99 L, Hgb 8.9 L, Hct 31.1 L, MCV 77.9 L, MCH 22.3 L, MCHC 28.6 L, RDW Std Deviation 70.1 H, RDW Coeff of Claudia 25.3 H, Plt Count 170, Immature Gran % (Auto) 0.400, Neut % (Auto) 93.4 H, Lymph % (Auto) 3.9 L, [place] % (Auto) 2.3, Eos % (Auto) 0.0, Baso % (Auto) 0.0, Absolute Neuts (auto) 4.8, Absolute Lymphs (auto) 0.20 L, Nucleated RBC % 0, Anisocytosis 2+, Target Cells 1+ 12/19/20 04:20: Sodium 136, Potassium 6.0 H*, Chloride 99, Carbon Dioxide 32.0, Anion Gap 5, BUN 62 H, Creatinine 2.86 H, Estim Creat Clear Calc 14.65, Est GFR (MDRD) Af Amer 22 L, Est GFR (MDRD) Non-Af 18 L, BUN/Creatinine Ratio 21.7 H, Glucose 148 H, Calcium 9.1, Total Bilirubin 1.00, AST 20, ALT 17, Alkaline Phosphatase 66, Total Protein 7.7, Albumin 3.2, Globulin 4.5 H, Albumin/Globulin Ratio 0.7 L, Triglycerides 61, Cholesterol 99, LDL Cholesterol 55, VLDL Cholesterol 12, HDL Cholesterol 32 L 12/19/20 04:20: PT 39.5 H, INR 4.2 H* Micro: Microbiology 12/18/20 10:50 Mucosa - Nasopharyngeal SARS-CoV-2 Antigen (Rapid) - Final 12/18/20 08:30 Interface Orders Respiratory Panel (PCR) - Final ABG Data ABG results: ABG 12/18/20 11:05 Specimen Type ART Sample Site L Brach pH 7.32 L Bicarbonate Actual 30.2 H Total CO2 32 Base Excess 4 H O2 Saturation 89 L ABG pCO2 58.7 H ABG pO2 63 L O2 Delivery Device Cannula Liter Flow 9.0 Radiography Diagnostic Testing: Radiology Impression Renal Ultrasound 12/18/20 14:16 IMPRESSION: Markedly limited examination shows no gross acute abnormality of the kidneys. Electronically Signed: Archie Shine MD at 17:39 EDT , Service support , Physical Exam Narrative Physical Examination: General: Awake, alert, oriented x 3, improved appearance, more conversive, no respiratory distress, seated upright in the ICU bed. Skin: Normal color, normal turgor, no icterus, no cyanosis except bilateral lower extremity venous stasis skin changes. HEENT: AT/NC, EOMI, PERRLA, still mildly dry MM. Lungs: Continued severely diminished BS, although improved from day prior, normalized effort, improved respiratory status, still mild rales, no wheezing. Heart: Regular ate and regular rhythm; no gallop, rub audible. Abdomen: Soft, significantly morbidly obese, NTTP, difficult to assess distention given habitus, distant normal BS. Extremities: No cyanosis, no clubbing, bilateral ankle to proximal hernandez edema improved from day prior, TORIBIO wraps, see skin. Neurological: Patient awake, alert, oriented as noted, cognitive function intact; pupils equally reactive to light and accommodation, cranial nerves II-XII grossly normal, moving all 4 extremities, no focal deficits, strength improved, moderately to severely global decrease secondary to acute presentation. Psychiatric: Affect appears improved, less fatigued, no distress evidence, no acute evidence of depressive or anxiety feelings. Assessment & Plan Assessment/Plan (1) Acute on chronic respiratory failure with hypoxemia: PLAN: The patient is a 60 y/o F w/ PMHx: Morbid Obesity, STACEY not using CPAP, PAF on coumadin, Hx PE, GERD, OA, Chronic Asthma/Hypoventilation syndrome w/ Chronic Hypoxic Respiratory Failure (3L NC) who presents to the [facility] ED on 12/17/20 with history of increased dyspnea over the last 2 to 3 days with intermittent chest discomfort with wheezing prompting ED evaluation. 1. Acute on Chronic Hypoxic and Hypercarbic Respiratory Failure, Multifactorial, Acute on Chronic Asthma Exacerbation, Hypoventilation Syndrome, Suspected Volume Overload Component and #2: Patient admitted to the PCU, maintained on monitor, initial concerns for potential cardiac etiology for presentation with chest discomfort however patient with unremarkable serial cardiac enzymes and per history recent cardiac catheterization therefore any stress testing was deferred and concern for asthma exacerbation with initiation of IV Solu-Medrol as well as aerosols. Patient with worsened respiratory status 12/18/20 AM, ABG obtained with evidence of hypoxia and hypercarbia with evidence of distress, placed on BiPAP with pulmonary consultation with recommendation for discontinuation of any fluids, continued steroids as well as bronchodilators and BiPAP. BNP repeat further increased from to 94.9-->359.5. Serial cardiac enzymes unremarkable. ECHO w/ mild global LV dysfunction, EF 45%, moderately low elated RV, moderate global RV systolic dysfunction, moderately enlarged LA and RA, moderate TVI, RVSP 79 mmHg. 12/18/20 transitioned to the ICU given respiratory decline. Pulse dose IV lasix administered given hypotension. SNUG toribio wraps being placed. TSH 2.34, Mag 2.2. 12/19/20 Respiratory status improved; however, given overload, per discussion with Nephrology will start 12/19/20 low dose lasix drip given not marked UOP although respiratory status improved and closely monitor BP. As noted considering HD, repeat renal panel at noon, if K not correcting will need to move forward if patient amenable. 2. Acute kidney injury on CKD stage III, Unclear subtype with Hyperkalemia: Secondary to acute presentation as noted and medications. Admission BUN/Cr 55/2.62, prior baseline creatinine noted to be 0.8-1.2. Initially hydrated, given concern for worsening respiratory status with concern for volume overload as etiology d/c further IV fluids, holding nephrotoxic regimen however aside from initially pulse dose IV Lasix; however, per discussion with Nephrology will start 12/19/20 low dose lasix drip given not marked UOP although respiratory status improved and closely monitor BP. FeNa <1%, serum Osm 308. Renal US difficult given habitus but not marked appearing. 12/19/20 K 6, administering kayexelate, insulin, glucose, Ca-gluconate with planned repeat level 12/19/20 at noon. Nephrology is discussing dialysis given hyperkalemia and KANE, worsening, patient is considering and plans discussions with her family. 12/19/20 BUN/Cr 62/2.86. 3. Chronic anemia, microcytic, iron deficiency: Admission hemoglobin 9.3, baseline prior 8, repeat hemoglobin 12/18/2020 9.2, MCV 79.4-->12/19/20 Hgb 8.9, continued on iron supplementation, continue to trend. Fe studies pending per Nephrology. 4. STACEY: Patient has not been compliant with any CPAP outpatient, will need repeat testing, continue BiPAP with naps and nightly as well as currently as noted above. 5. PAF: We will continue diltiazem as able given transiently low blood pressure in addition to metoprolol, continued INR trending with hold initially upon admission with INR 3.5, repeat 12/18/2020 INR 3.2-->12/19/20 INR 4.2, likely secondary to KANE as noted in setting of #1. 6. Hypertension: Patient with low BPs ongoing, KANE, prioritizing lasix as noted, hold BB/Diltizem as needed with reduction per Nephrology recommendation, holding lisinopril given KANE as noted; however,as noted ongoing attempts for lasix usage despite hypotension. 7. Hyperlipidemia: Not on regimen, FLP in AM. 8. Morbid Obesity: Weight loss and lifestyle changes encouraged, nutrition consulted. 9. GERD: We will maintain on PPI. 10. DVT prophylaxis: SCDs, continue INR trending and resume Coumadin once appropriate level. 12/19/20 INR 4.2, increased further likely secondary to KANE as noted in setting #1. 11. CODE STATUS: Full code. Currently contemplating HD as noted above. Charges/Coding Visit Charges Inpatient E&M: 89574 Subs Hosp L3
[2020-12-19] MEDS: Ipratropium 0.5 MG/2.5 ML SOLUTION INHALATION ×2 (06:56→19:56)
[2020-12-19] MEDS: Dextrose 50%-Water 25 GM/50 ML DISP.SYRIN IV (07:37)
[2020-12-19] MEDS: Sodium Polystyrene Sulfonate 15 GM/60 ML UDC 30 GM PO (07:37)
[2020-12-19] MEDS: Insulin Lispro 100 UNIT/ML INSULN.PEN SC (07:38)
[2020-12-19 08:29] LABS: Mucous, Urine 0 SEEN /hpf (<or=2+); Squamous Epithelial Cells - UA 0 SEEN /hpf (5-10)
[2020-12-19 08:38] LABS: Color, Urine Yellow (Yellow); Glucose, Dipstick Normal (Normal); Ketone-Dipstick Negative (Negative); Leukocyte Esterase-Dipstick 100 /ul (Negative); Nitrite-Dipstick Negative (Negative); Occult Blood-Urine 250 /ul (Negative); Protein-Dipstick 100 mg/dl (Negative); Urine Bilirubin Dipstick Negative (Negative); Urine Clarity Clear (Clear); Urine Urobilinogen 1 mg/dl (Normal)
[2020-12-19 08:45] LABS: White Blood Cells 5-10 SEEN /hpf (0-5)
[2020-12-19 08:46] LABS: Bacteria 1+ /hpf (None Seen); Red Blood Cells-Urine 10-25 SEEN /hpf (0-5)
--- NOTE | 2020-12-19 09:16 | CON.PCM.RE_ITS ---
Assessment & Plan Assessment/Plan (1) Acute kidney injury: PLAN: creatinine 0.8 in November 2020 increased to 2.6 on admit to 2.8 today unresponsive to iv fluids. Suspect early ATN from hypoperfusion. Marginal urine output with anasarca. Trial iv lasix drip. FeNa <1%, BNP 359. Discussed dialysis if azotemia, hyperkalemia does not improve. She is a full code but wants to discuss dialysis with her sister first before making decision about dialysis. Need to reverse elevated INR before line placement if she agrees to dialysis if needed. FH for kidney failure in mother and aunt. Overall health poor with multiple comorbidities. DW primary service (2) Hyperkalemia: PLAN: medical management. Repeat K today after kayexalate. Agree to hold lisinopril (3) Hypotension: QUALIFIERS: Hypotension type: unspecified hypotension type Qualified Code(s): I95.9 - Hypotension, unspecified PLAN: keep SBP >100 for renal perfusion (4) Generalized weakness: PLAN: hx falls, debilitated, sedentary. ECF for rehab. (5) Supratherapeutic INR: (6) Pulmonary embolism: PLAN: hx on home oxygen, sleep apnea, tobacco use hx (7) DVT (deep venous thrombosis): PLAN: BLE edema, (8) Debility: (9) Morbid obesity due to excess calories: (10) Anemia: PLAN: supratherapeutic inr. Check iron studies. hgb 8.9g (11) Acute on chronic respiratory failure with hypoxemia: PLAN: pulmonary mgmt HPI Consult Data Date of Consult: 12/19/20 HPI Narrative Reason for Consultation: KANE, hyperkalemia HPI Narrative: NICOLE RAUSCH, is a 60 morbidly obese F who presents from ECF for KANE, hyperkalemia, shortness of breath. She was hospitalized in November for debility, frequent falls. She has been sedentary, unable to walk since her fall. Creatinine in November was wnl at 0.9 now at 2.6 on admit to 2.8 today despite receiving iv fluids for hypotension. She received kayexalate for K 6.0. Lisinopril discontinued. She is at ECF for rehab. Outpt meds include lasix and lisinopril. BP has been low in the 70-90's systolic on CCB and BB for chronic afib. INR supratherapeutic on warfarin. She has a history of PE, DVT since 2006 on disability since then. She is on home oxygen since Jul with STACEY, COPD, hx t obacco use. She has anasarca with decreased urine output as outpt and during hospitalization. She received iv lasix x1. BNP 359 with FeNa <1%, urine sodium 13, Ucr 139. [facility] Medical History (Updated 12/19/20 @ 09:[address] Jenny Baptiste, ) Arthritis Atrial fibrillation Blood clot in vein Carpal tunnel syndrome Chronic pain Congestive heart failure (CHF) Depression Former smoker GERD (gastroesophageal reflux disease) History of left heart catheterization (LHC) (~07/20/20) Obesity Pulmonary embolism Home Medications acetaminophen 325 mg tablet 650 mg PO BID PRN tab 07/05/19 [History Last Taken Unknown] calcium carb-magnesium carb 250 - 300 mg PO DAILY 07/05/19 [History Last Taken Unknown] cholecalciferol (vitamin D3) 125 mcg (5,000 unit) capsule 2,000 mcg PO DAILY 07/05/19 [History Last Taken 07/17/20] nystatin 1 applic TOPICAL BID bottle 08/20/20 [Rx Last Taken Unknown] diltiazem HCl 120 mg capsule,extended release 24 hr 120 mg PO DAILY #30 cap 10/16/20 [Rx Last Taken Unknown] ferrous sulfate 325 mg PO DAILY 11/13/20 [History Last Taken Unknown] omega-3 fatty acids 1,000 mg PO DAILY 11/13/20 [History Last Taken Unknown] vitamin B complex [B Complex-Vitamin B12] 1 tab PO DAILY 11/13/20 [History Last Taken Unknown] furosemide [Lasix] 40 mg PO DAILY 12/17/20 [History Last Taken Unknown] lisinopril 10 mg PO DAILY 12/17/20 [History Last Taken Unknown] metoprolol tartrate 25 mg PO BID 12/17/20 [History Last Taken Unknown] omeprazole 20 mg PO DAILY 12/17/20 [History Last Taken Unknown] warfarin 3 mg PO DAILY 12/17/20 [History Last Taken Unknown] Allergy/AdvReac Type Severity Reaction Status Date / Time enoxaparin [From Lovenox] Allergy Severe Rash & Verified 12/17/20 20:02 Itching peach Allergy Severe Other Verified 12/17/20 20:02 green tea Allergy Intermediate Itching Verified 12/17/20 20:02 Family History Mother Diabetes High cholesterol Father Diabetes Heart disease Hypertension Sister Diabetes High cholesterol Brother Diabetes Surgical History History of cholecystectomy History of oral surgery Social History Smoking Status: Former smoker alcohol intake: never substance use type: does not use what type of physical activity do you participate in: none ROS Constitutional Constitutional: Reports chills and weakness; Denies fever(s) Cardiovascular Cardiovascular: Reports chest pain, dyspnea on exertion and edema Respiratory/Chest Respiratory/Chest: Reports dyspnea on exertion, portable oxygen @ home, shortness of breath at rest and other Details: oxygen at home since Jul, sleep apnea, hx PE, DVT RLE 2006, 2007 ; Denies hemoptysis Gastrointestinal Gastrointestinal: Denies abdominal pain, diarrhea, nausea or vomiting Genitourinary Genitourinary: Reports difficulty urinating and other Details: decreased urine output ; Denies dysuria or hematuria Musculoskeletal Musculoskeletal: Reports other Details: disabled, nonambulatory since fall in November, in [facility] for rehab Integumentary Integumentary: Denies erythema or jaundice Neurologic Neurologic: Reports tremor(s) and weakness; Denies confusion or seizures Psychiatric Psychiatric: Reports anxiety and depression Endocrine Endocrinology: Denies cold intolerance or heat intolerance Hematologic/Lymphatic Hematologic/Lymphatic: Reports anemia, easy bleeding, easy bruising and other Details: on warfarin Physical Exam Const alert and oriented x3 Constitutional Narrative: responding appropriately on NC HEENT normocephalic Eyes PERRL Neck supple Resp Auscultation: rhonchi Cardio Cardio Narrative: afib chronic GI non-tender GI Narrative: distended, anasarca Palpation: soft Bladder / Kidney Exam: catheter in place Back/Spine Back/Spine Narrative: back pain Extremity Extremity Narrative: anasarca 4+ pitting edema General Extremity: edema bilateral Skin no wounds Neuro Sensorium / Orientation: awake and alert Psych cooperative Lab / Micro Data Result Diagrams: 12/19/20 04:20 12/19/20 04:20 Labs: Laboratory Results - last 24 hr 12/18/20 06:50: Diff Path Review Reviewed 12/18/20 06:50: B-Natriuretic Peptide 359.5 H 12/18/20 06:50: Magnesium 2.2, TSH 2.34 12/18/20 08:02: Serum Osmolality 308 H 12/18/20 15:17: Urine Osmolality 425 12/18/20 15:17: Urine Creatinine 139.00 12/18/20 15:17: Ur Random Sodium 13 12/19/20 04:20: WBC 5.2, RBC 3.99 L, Hgb 8.9 L, Hct 31.1 L, MCV 77.9 L, MCH 22.3 L, MCHC 28.6 L, RDW Std Deviation 70.1 H, RDW Coeff of Claudia 25.3 H, Plt Count 170, Immature Gran % (Auto) 0.400, Neut % (Auto) 93.4 H, Lymph % (Auto) 3.9 L, [place] % (Auto) 2.3, Eos % (Auto) 0.0, Baso % (Auto) 0.0, Absolute Neuts (auto) 4.8, Absolute Lymphs (auto) 0.20 L, Nucleated RBC % 0, Anisocytosis 2+, Target Cells 1+ 12/19/20 04:20: Sodium 136, Potassium 6.0 H*, Chloride 99, Carbon Dioxide 32.0, Anion Gap 5, BUN 62 H, Creatinine 2.86 H, Estim Creat Clear Calc 14.65, Est GFR (MDRD) Af Amer 22 L, Est GFR (MDRD) Non-Af 18 L, BUN/Creatinine Ratio 21.7 H, Glucose 148 H, Calcium 9.1, Total Bilirubin 1.00, AST 20, ALT 17, Alkaline Phosphatase 66, Total Protein 7.7, Albumin 3.2, Globulin 4.5 H, Albumin/Globulin Ratio 0.7 L, Triglycerides 61, Cholesterol 99, LDL Cholesterol 55, VLDL Cholesterol 12, HDL Cholesterol 32 L 12/19/20 04:20: PT 39.5 H, INR 4.2 H* 12/19/20 07:06: Urine Color Yellow, Urine Clarity Clear, Urine pH 5.0, Ur Specific [place] 1.020, Urine Protein 100 H, Urine Glucose (UA) Normal, Urine Ketones Negative, Urine Occult Blood 250 H, Urine Nitrite Negative, Urine Bilirubin Negative, Urine Urobilinogen 1 H, Ur Leukocyte Esterase 100 H, Urine RBC 10-25 SEEN, Urine WBC 5-10 SEEN, Ur Squamous Epith Cells 0 SEEN, Urine Bacteria 1+, Urine Mucus 0 SEEN Micro: Microbiology 12/18/20 10:50 Mucosa - Nasopharyngeal SARS-CoV-2 Antigen (Rapid) - Final 12/18/20 08:30 Interface Orders Respiratory Panel (PCR) - Final ABG Data ABG results: ABG 12/18/20 11:05 Specimen Type ART Sample Site L Brach pH 7.32 L Bicarbonate Actual 30.2 H Total CO2 32 Base Excess 4 H O2 Saturation 89 L ABG pCO2 58.7 H ABG pO2 63 L O2 Delivery Device Cannula Liter Flow 9.0 Radiology Impression Renal Ultrasound 12/18/20 14:16 IMPRESSION: Markedly limited examination shows no gross acute abnormality of the kidneys. Electronically Signed: Archie Shine MD at 17:39 EDT , Service support ,
[2020-12-19] MEDS: Furosemide 500 MG in Empty Viaflex 50 mL 1 EACH CONT INF (10:14)
[2020-12-19] MEDS: Ferrous Sulfate 325 MG Tablet PO (12:49)
[2020-12-19 13:41] LABS: Albumin, Serum 3.3 g/dL (3.2-5.0); BUN 62 mg/dL (7-18); BUN/Creat Ratio 21.5 RATIO (10-20); Calcium,Total 8.9 mg/dL (8.5-10.1); Chloride 100 mmol/L (98-107); Creatinine, Serum 2.89 mg/dL (0.55-1.02); EST Glomerular Filtration Rate 18 mL/min (>60); Est Glom Filt Rate - Afr Amer 21 mL/min (>60); Glucose 147 mg/dL (74-106); Phosphorus 4.8 mg/dL (2.5-4.9); Potassium 5.7 mmol/L (3.5-5.1); Sodium Level 136 mmol/L (136-145)
[2020-12-19] MEDS: Metoprolol Tartrate 25 MG Tablet PO ×2 (14:18→22:23)
[2020-12-19] MEDS: Menthol/Lanolin/Calamine/Znox 113 GM Tube 1 APPLIC TOPICAL ×2 (17:04→22:25)
[2020-12-19] MEDS: Pantoprazole Sodium 20 MG Tablet PO (18:11)
[2020-12-19 18:38] LABS: Anion Gap 4 (5-15); BUN 64 mg/dL (7-18); BUN/Creat Ratio 21.5 RATIO (10-20); Calcium,Total 9.2 mg/dL (8.5-10.1); Chloride 99 mmol/L (98-107); Creatinine, Serum 2.98 mg/dL (0.55-1.02); EST Glomerular Filtration Rate 17 mL/min (>60); Est Glom Filt Rate - Afr Amer 21 mL/min (>60); Estimated Creatinine Clearance 14.06 ml/min; Glucose 133 mg/dL (74-106); Potassium 5.6 mmol/L (3.5-5.1); Sodium Level 137 mmol/L (136-145)
[2020-12-19] MEDS: Sodium Polystyrene Sulfonate 15 GM/60 ML UDC PO (19:43)
[2020-12-19] MEDS: dilTIAZem 60 MG CAP.SR.12H PO (22:23)
[2020-12-19 23:13] LABS: Anion Gap 4 (5-15); BUN 67 mg/dL (7-18); BUN/Creat Ratio 22.2 RATIO (10-20); Calcium,Total 9.1 mg/dL (8.5-10.1); Chloride 100 mmol/L (98-107); Creatinine, Serum 3.02 mg/dL (0.55-1.02); EST Glomerular Filtration Rate 17 mL/min (>60); Est Glom Filt Rate - Afr Amer 20 mL/min (>60); Estimated Creatinine Clearance 13.87 ml/min; Glucose 138 mg/dL (74-106); Potassium 5.3 mmol/L (3.5-5.1); Sodium Level 138 mmol/L (136-145)
[2020-12-20] VITALS (24 sets, daily range): BP systolic 88–116; BP diastolic 36–91; PULSE 92–105; RESP 12–24; TEMP 36.6–36.9; O2SAT 93–100
--- NOTE | 2020-12-20 01:17 | CPS ---
Increased IPAP to 14 for low observed tidal volumes. New BiPAP settings are 14/7 RR12 35%. Improved tidal volumes with change. RN aware.
[2020-12-20 04:24] LABS: Absolute Lymphocyte Count 0.13 X10^3/uL (0.83-4.51); Absolute Neutrophil Count 5.1 X10^3/uL (2.0-7.7); Hematocrit 30.5 % (37-47); Hemoglobin 8.6 g/dL (12.0-15.0); Lymphocyte # 0.13 X10^3/ul (0.83-4.51); Lymphocyte % 2.4 % (19-41); Mean Corp Hgb Conc 28.2 g/dL (32-36); Mean Corpuscular Hgb 21.9 pg (27.0-32.0); Mean Corpuscular Volume 77.8 fL (81-99); Monocyte% 5.4 % (0-10); NRBC Flagged by Analyzer 0 % (0-5); Neutrophil # 5.07 X10^3/uL (2.7-7.7); Neutrophil % 91.7 % (47-70); POSITIVE DIFFERENTIAL YES; POSITIVE MORPHOLOGY YES; Platelet Count 168 K/mm3 (150-450); RBC Distribution Width CV 25.2 % (11.6-14.6); RBC Distribution Width SD 69.8 fl (35.1-43.9); Red Blood Count 3.92 M/mm3 (4.2-5.4); White Blood Count 5.5 K/mm3 (4.4-11.0)
[2020-12-20 04:29] LABS: Differential Indicated SCAN CRITERIA MET
[2020-12-20 04:39] LABS: International Normalized Ratio 4.2
[2020-12-20 04:41] LABS: ALB/GLOB Ratio 0.7 RATIO (0.9-2.4); AST(SGOT) 20 U/L (15-37); Alanine Aminotransfer ALT/SGPT 20 U/L (13-56); Albumin, Serum 3.2 g/dL (3.2-5.0); Alkaline Phosphatase 63 U/L (45-117); Anion Gap 4 (5-15); BUN 74 mg/dL (7-18); BUN/Creat Ratio 25.5 RATIO (10-20); Calcium,Total 8.8 mg/dL (8.5-10.1); Chloride 100 mmol/L (98-107); EST Glomerular Filtration Rate 18 mL/min (>60); Est Glom Filt Rate - Afr Amer 21 mL/min (>60); Estimated Creatinine Clearance 14.45 ml/min; Globulin 4.5 g/dL (2.2-4.2); Glucose 123 mg/dL (74-106); Potassium 5.2 mmol/L (3.5-5.1); Protein, Total 7.7 g/dL (6.4-8.2); Sodium Level 138 mmol/L (136-145)
[2020-12-20] MEDS: Menthol/Lanolin/Calamine/Znox 113 GM Tube 1 APPLIC TOPICAL ×3 (06:13→21:26)
--- NOTE | 2020-12-20 06:13 | PCM.PN.HOSP ---
Subjective Subjective Patient overnight with continued diuresis but still very marginal, did increase Lasix drip as blood pressure allowed, now just slightly above 10 mg/h. Discussed again patient's CODE STATUS and decision for possible dialysis at length, she is awaiting still discussions with her sister and remains a full code. Patient does feel less dyspneic, able to lay more flat with mildly improved anasarca but still ongoing. Patient denies fevers, chills, nausea, emesis, abdominal pain, chest pain. Objective Data Objective Data Vital Signs: Vital Signs Temp Pulse Resp BP Pulse Ox 98.4 F 101 H 21 H 99/59 L 95 12/20/20 00:00 12/20/20 04:40 12/20/20 04:40 12/20/20 00:00 12/20/20 04:40 Oxygen Flow Rate (L/min) 5 Oxygen Delivery Method Bi-pap Weight: 393 lb 8 oz Body Mass Index (BMI) 76.6 Intake & Output: Intake and Output for Last 24 Hours 12/18/20 12/19/20 12/20/20 23:59 23:59 23:59 Intake Total 2278.33 / 2278.33 406.94 / 426.94 Output Total 100 / 250 1000 / 1110 590 / 590 Balance 2178.33 / 2028.33 -593.06 / -683.06 -570 / -570 Lab / Micro Data Result Diagrams: 12/20/20 04:00 12/20/20 04:00 Labs: Laboratory Results - last 24 hr 12/19/20 07:06: Urine Color Yellow, Urine Clarity Clear, Urine pH 5.0, Ur Specific [place] 1.020, Urine Protein 100 H, Urine Glucose (UA) Normal, Urine Ketones Negative, Urine Occult Blood 250 H, Urine Nitrite Negative, Urine Bilirubin Negative, Urine Urobilinogen 1 H, Ur Leukocyte Esterase 100 H, Urine RBC 10-25 SEEN, Urine WBC 5-10 SEEN, Ur Squamous Epith Cells 0 SEEN, Urine Bacteria 1+, Urine Mucus 0 SEEN 12/19/20 12:45: Sodium Cancelled, Potassium Cancelled, Chloride Cancelled, Carbon Dioxide Cancelled, BUN Cancelled, Creatinine Cancelled, Estim Creat Clear Calc Cancelled, Est GFR (MDRD) Af Amer Cancelled, Est GFR (MDRD) Non-Af Cancelled, BUN/Creatinine Ratio Cancelled, Glucose Cancelled, Calcium Cancelled, Phosphorus Cancelled, Albumin Cancelled 12/19/20 13:19: Sodium 136, Potassium 5.7 H, Chloride 100, Carbon Dioxide 31.0, BUN 62 H, Creatinine 2.89 H, Estim Creat Clear Calc 14.50, Est GFR (MDRD) Af Amer 21 L, Est GFR (MDRD) Non-Af 18 L, BUN/Creatinine Ratio 21.5 H, Glucose 147 H, Calcium 8.9, Phosphorus 4.8, Albumin 3.3 12/19/20 17:55: Sodium 137, Potassium 5.6 H, Chloride 99, Carbon Dioxide 34.0 H, Anion Gap 4 L, BUN 64 H, Creatinine 2.98 H, Estim Creat Clear Calc 14.06, Est GFR (MDRD) Af Amer 21 L, Est GFR (MDRD) Non-Af 17 L, BUN/Creatinine Ratio 21.5 H, Glucose 133 H, Calcium 9.2 12/19/20 22:30: Sodium 138, Potassium 5.3 H, Chloride 100, Carbon Dioxide 34.0 H, Anion Gap 4 L, BUN 67 H, Creatinine 3.02 H, Estim Creat Clear Calc 13.87, Est GFR (MDRD) Af Amer 20 L, Est GFR (MDRD) Non-Af 17 L, BUN/Creatinine Ratio 22.2 H, Glucose 138 H, Calcium 9.1 12/20/20 04:00: WBC 5.5, RBC 3.92 L, Hgb 8.6 L, Hct 30.5 L, MCV 77.8 L, MCH 21.9 L, MCHC 28.2 L, RDW Std Deviation 69.8 H, RDW Coeff of Claudia 25.2 H, Plt Count 168, Immature Gran % (Auto) 0.500, Neut % (Auto) 91.7 H, Lymph % (Auto) 2.4 L, [place] % (Auto) 5.4, Eos % (Auto) 0.0, Baso % (Auto) 0.0, Absolute Neuts (auto) 5.1, Absolute Lymphs (auto) 0.13 L, Nucleated RBC % 0 12/20/20 04:00: Sodium 138, Potassium 5.2 H, Chloride 100, Carbon Dioxide 34.0 H, Anion Gap 4 L, BUN 74 H, Creatinine 2.90 H, Estim Creat Clear Calc 14.45, Est GFR (MDRD) Af Amer 21 L, Est GFR (MDRD) Non-Af 18 L, BUN/Creatinine Ratio 25.5 H, Glucose 123 H, Calcium 8.8, Total Bilirubin 0.90, AST 20, ALT 20, Alkaline Phosphatase 63, Total Protein 7.7, Albumin 3.2, Globulin 4.5 H, Albumin/Globulin Ratio 0.7 L 12/20/20 04:00: PT 40.0 H, INR 4.2 H* Micro: Microbiology 12/18/20 10:50 Mucosa - Nasopharyngeal SARS-CoV-2 Antigen (Rapid) - Final 12/18/20 08:30 Interface Orders Respiratory Panel (PCR) - Final Physical Exam Narrative Physical Examination: General: Awake, alert, oriented x 3, improved from day prior, still transition to nasal cannula. Skin: Normal color, normal turgor, no icterus, no cyanosis except bilateral lower extremity venous stasis skin changes as well as intertrigo in skin folds. HEENT: AT/NC, EOMI, PERRLA, MMM. Lungs: Remains diminished throughout, greater bases, effort has improved and currently able to lay flat, still mild rales/coarse but distant, no wheezing. Heart: Regular rate and regular rhythm; no gallop, rub audible. Abdomen: Soft, significantly morbidly obese, NTTP, difficult to assess distention given habitus, distant normal BS, still some anasarca. Extremities: No cyanosis, no clubbing, bilateral ankle to proximal hernandez which was more prominent, now improving, still some swelling up to the mid abdomen as noted, see skin. Neurological: Patient awake, alert, oriented as noted, cognitive function intact; pupils equally reactive to light and accommodation, cranial nerves II-XII grossly normal, moving all 4 extremities, no focal deficits, strength improved, moderately to severely global decrease secondary to acute presentation. Psychiatric: Affect appears improved, no evidence of any distress, calm no acute evidence of depressive or anxiety feelings. Assessment & Plan Assessment/Plan (1) Acute on chronic respiratory failure with hypoxemia: PLAN: The patient is a 60 y/o F w/ PMHx: Morbid Obesity, STACEY not using CPAP, PAF on coumadin, Hx PE, GERD, OA, Chronic Asthma/Hypoventilation syndrome w/ Chronic Hypoxic Respiratory Failure (3L NC) who presents to the [facility] ED on 12/17/20 with history of increased dyspnea over the last 2 to 3 days with intermittent chest discomfort with wheezing prompting ED evaluation. 1. Acute on Chronic Hypoxic and Hypercarbic Respiratory Failure, Multifactorial, Acute on Chronic Asthma Exacerbation, Hypoventilation Syndrome, Suspected Volume Overload Component and #2: Patient admitted to the PCU, maintained on monitor, initial concerns for potential cardiac etiology for presentation with chest discomfort however patient with unremarkable serial cardiac enzymes and per history recent cardiac catheterization therefore any stress testing was deferred and concern for asthma exacerbation with initiation of IV Solu-Medrol as well as aerosols. Patient with worsened respiratory status 12/18/20 AM, ABG obtained with evidence of hypoxia and hypercarbia with evidence of distress, placed on BiPAP with pulmonary consultation with recommendation for discontinuation of any fluids, continued steroids as well as bronchodilators and BiPAP. BNP repeat further increased from to 94.9-->359.5. Serial cardiac enzymes unremarkable. ECHO w/ mild global LV dysfunction, EF 45%, moderately low elated RV, moderate global RV systolic dysfunction, moderately enlarged LA and RA, moderate TVI, RVSP 79 mmHg. 12/18/20 transitioned to the ICU given respiratory decline. Pulse dose IV lasix administered given hypotension. SNUG franny wraps being placed. TSH 2.34, Mag 2.2. 12/19/20 Respiratory status improved; however, given overload, per discussion with Nephrology will start 12/19/20 low dose lasix drip given not marked UOP. Patient oxygenation requirements trending down, attempting to increase Lasix drip as BP allows. Given clinical improvement patient 12/20/2020 transition to PCU status. Potassium level continues to trend down, 12/20/2020 5.2 as had been concerned about more immediate needs for dialysis. Patient still deciding on potential need for future dialysis. 2. Acute kidney injury on CKD stage III, Unclear subtype with Hyperkalemia: Secondary to acute presentation as noted and medications. Admission BUN/Cr 55/2.62, prior baseline creatinine noted to be 0.8-1.2. Initially hydrated, given concern for worsening respiratory status with concern for volume overload as etiology d/c further IV fluids, holding nephrotoxic regimen however aside from initially pulse dose IV Lasix; however, per discussion with Nephrology will start 12/19/20 low dose lasix drip given not marked UOP although respiratory status improved and closely monitor BP. FeNa <1%, serum Osm 308. Renal US difficult given habitus but not marked appearing. 12/19/20 K 6, administering kayexelate, insulin, glucose, Ca-gluconate with repeat level continue to trend down with 1 additional dose of Kayexalate administered. 12/20/2020 potassium 5.2, continue to closely trend. Renal function not markedly improving, 12/20/2173/2.90. Awaiting repeat nephrology input/evaluation, patient still planning to discuss possible dialysis initiation if eventually necessary with her sister. 3. Chronic anemia, microcytic, iron deficiency: Admission hemoglobin 9.3, baseline prior 8, repeat hemoglobin 12/18/2020 9.2, MCV 79.4-->12/20/20 Hgb 8.6, continued on iron supplementation, continue to trend. Fe studies pending per Nephrology. 4. STACEY: Patient has not been compliant with any CPAP outpatient noting that her daughter disposed of her device. Patient will need repeat testing, continue BiPAP with naps and nightly as well as currently as noted above. 5. PAF: We will continue diltiazem as able given transiently low blood pressure in addition to metoprolol, continued INR trending with hold as admission with INR 3.5-->12/20/20 INR 4.2, likely secondary to KANE as noted in setting of #1. Given patient history PAF, administering at least metoprolol when able. 6. Hypertension: Patient with low BPs ongoing, KANE, prioritizing lasix as noted, hold BB/Diltizem as needed with reduction per Nephrology recommendation, holding lisinopril given KANE as noted; however,as noted ongoing attempts for lasix usage despite hypotension. Given patient history PAF, administering at least metoprolol when able. 7. Hyperlipidemia: Not on regimen. 8. Morbid Obesity: Weight loss and lifestyle changes encouraged, nutrition consulted. 9. GERD: We will maintain on PPI. 10. DVT prophylaxis: SCDs, continue INR trending and resume Coumadin once appropriate level. 12/20/20 INR 4.2, increased further likely secondary to KANE as noted in setting #1. 11. CODE STATUS: Full code. Currently contemplating HD as noted above. Charges/Coding Visit Charges Inpatient E&M: 61397 Subs Hosp L2
[2020-12-20] MEDS: Ipratropium 0.5 MG/2.5 ML SOLUTION INHALATION ×3 (07:04→18:54)
--- NOTE | 2020-12-20 07:09 | PN.CC_ITS ---
Assessment & Plan Assessment/Plan (1) Acute on chronic respiratory failure with hypoxemia: PLAN: RECOMMENDATIONS: 1. Continue to wean supplemental oxygen as tolerated. 2. Continue BiPAP support, at a minimum, with naps and nightly. Encourage breaks during the day 3. Medical management of hyperkalemia. Continue telemetry 4. Appreciate nephrology consultation. 5. Continue to hold Coumadin. Active reversal may be needed for procedure 6. Continue bronchodilators and wean steroids. 7. Encourage incentive spirometer use. IMPRESSIONS: 1. Acute on chronic combined respiratory failure Likely multifactorial in etiology with possible untreated obstructive lung disease, untreated STACEY, alveolar hypoventilation secondary to obesity and decompensated heart failure with preserved ejection fraction likely contributing. Prior echocardiogram in July did reveal an ejection fraction of 45%. However, the patient did have moderate global RV systolic dysfunction with a right ventricular systolic pressure estimated to be 79 mmHg. Agree with continuing scheduled bronchodilators, but will wean steroids. Wean supplemental oxygen as tolerated. The patient should ideally be maintained on BiPAP therapy, at a minimum, with naps and nightly. Ability to tolerate BiPAP breaks should improve with diuresis. She would benefit from further outpatient pulmonary optimization after discharge. Again, pulmonary function studies and polysomnogram would be beneficial. 2. History of obstructive sleep apnea Recommend outpatient pulmonary follow-up so that repeat sleep study can be completed and the patient restarted on nocturnal Pap therapy, as clinically indicated. In the interim, I would recommend empiric utilization of BiPAP therapy with naps and nightly. 3. RV dysfunction/pulmonary hypertension The patient likely has secondary pulmonary hypertension to a number of different etiologies. Ideally, the patient will require further outpatient testing for optimization. Await response to Lasix drip. 4. Acute kidney injury Unclear etiology. Could be secondary to prolonged hemodynamic instability. Renal ultrasound was unremarkable. Lasix drip initiated per nephrology. Appreciate nephrology input. Appears to be tolerating this at this time. 5. Super morbid obesity/atrial fibrillation with RVR/history of tobacco dependency Complicates care, management, recovery and prognosis. Continue home medications as indicated. This note was generated with [employer] software. It may contain incorrect words, spelling, and punctuation that were not noted in checking the note before signing. Subjective Subjective Patient did okay overnight. Patient has been requesting BiPAP pretty much [id number] per nursing report. Patient has had decent output on Lasix drip, but subjectively does not feel significantly changed. Patient has remained in A. fib no significant ectopy per nursing. Objective Data Objective Data Vital Signs: Vital Signs Temp Pulse Resp BP Pulse Ox 36.6 C 101 H 15 116/69 97 12/20/20 06:00 12/20/20 07:04 12/20/20 07:04 12/20/20 06:00 12/20/20 07:06 Oxygen Flow Rate (L/min) 4 Oxygen Delivery Method Nasal Cannula Weight: 178.489 kg Body Mass Index (BMI) 76.6 Intake & Output: Intake and Output for Last 24 Hours 12/18/20 12/19/20 12/20/20 23:59 23:59 23:59 Intake Total 2278.33 / 2278.33 406.94 / 426.94 Output Total 100 / 250 1000 / 1110 590 / 590 Balance 2178.33 / 2028.33 -593.06 / -683.06 -570 / -570 Lab / Micro Data Result Diagrams: 12/20/20 04:00 12/20/20 04:00 Labs: Laboratory Results - last 24 hr 12/19/20 07:06: Urine Color Yellow, Urine Clarity Clear, Urine pH 5.0, Ur Specific [place] 1.020, Urine Protein 100 H, Urine Glucose (UA) Normal, Urine Ketones Negative, Urine Occult Blood 250 H, Urine Nitrite Negative, Urine Bilirubin Negative, Urine Urobilinogen 1 H, Ur Leukocyte Esterase 100 H, Urine RBC 10-25 SEEN, Urine WBC 5-10 SEEN, Ur Squamous Epith Cells 0 SEEN, Urine Bacteria 1+, Urine Mucus 0 SEEN 12/19/20 12:45: Sodium Cancelled, Potassium Cancelled, Chloride Cancelled, Carbon Dioxide Cancelled, BUN Cancelled, Creatinine Cancelled, Estim Creat Clear Calc Cancelled, Est GFR (MDRD) Af Amer Cancelled, Est GFR (MDRD) Non-Af Cancelled, BUN/Creatinine Ratio Cancelled, Glucose Cancelled, Calcium Cancelled, Phosphorus Cancelled, Albumin Cancelled 12/19/20 13:19: Sodium 136, Potassium 5.7 H, Chloride 100, Carbon Dioxide 31.0, BUN 62 H, Creatinine 2.89 H, Estim Creat Clear Calc 14.50, Est GFR (MDRD) Af Amer 21 L, Est GFR (MDRD) Non-Af 18 L, BUN/Creatinine Ratio 21.5 H, Glucose 147 H, Calcium 8.9, Phosphorus 4.8, Albumin 3.3 12/19/20 17:55: Sodium 137, Potassium 5.6 H, Chloride 99, Carbon Dioxide 34.0 H, Anion Gap 4 L, BUN 64 H, Creatinine 2.98 H, Estim Creat Clear Calc 14.06, Est GFR (MDRD) Af Amer 21 L, Est GFR (MDRD) Non-Af 17 L, BUN/Creatinine Ratio 21.5 H , Glucose 133 H, Calcium 9.2 12/19/20 22:30: Sodium 138, Potassium 5.3 H, Chloride 100, Carbon Dioxide 34.0 H , Anion Gap 4 L, BUN 67 H, Creatinine 3.02 H, Estim Creat Clear Calc 13.87, Est GFR (MDRD) Af Amer 20 L, Est GFR (MDRD) Non-Af 17 L, BUN/Creatinine Ratio 22.2 H , Glucose 138 H, Calcium 9.1 12/20/20 04:00: WBC 5.5, RBC 3.92 L, Hgb 8.6 L, Hct 30.5 L, MCV 77.8 L, MCH 21.9 L, MCHC 28.2 L, RDW Std Deviation 69.8 H, RDW Coeff of Claudia 25.2 H, Plt Count 168, Immature Gran % (Auto) 0.500, Neut % (Auto) 91.7 H, Lymph % (Auto) 2.4 L, [place] % (Auto) 5.4, Eos % (Auto) 0.0, Baso % (Auto) 0.0, Absolute Neuts (auto) 5.1, Absolute Lymphs (auto) 0.13 L, Nucleated RBC % 0 12/20/20 04:00: Sodium 138, Potassium 5.2 H, Chloride 100, Carbon Dioxide 34.0 H , Anion Gap 4 L, BUN 74 H, Creatinine 2.90 H, Estim Creat Clear Calc 14.45, Est GFR (MDRD) Af Amer 21 L, Est GFR (MDRD) Non-Af 18 L, BUN/Creatinine Ratio 25.5 H , Glucose 123 H, Calcium 8.8, Total Bilirubin 0.90, AST 20, ALT 20, Alkaline Phosphatase 63, Total Protein 7.7, Albumin 3.2, Globulin 4.5 H, Albumin/Globulin Ratio 0.7 L 12/20/20 04:00: PT 40.0 H, INR 4.2 H* Micro: Microbiology 12/18/20 10:50 Mucosa - Nasopharyngeal SARS-CoV-2 Antigen (Rapid) - Final 12/18/20 08:30 Interface Orders Respiratory Panel (PCR) - Final Physical Exam Const alert and no apparent distress General Appearance: on BiPAP Nutritional Appearance: morbidly obese HEENT moist oral mucous membranes Neck No nuchal rigidity General: trachea midline Chest inspection of chest normal Resp normal respiratory effort Auscultation: diminished lung sounds; Negative for rales, rhonchi or wheezes Cardio regular rate, no murmurs, no rub and no gallops Rhythm: abnormal rhythm irregularly irregular GI normal to inspection, nondistended, normoactive bowel sounds Extremity General Extremity: edema bilateral lower extremity; Negative for clubbing Skin General Skin Exam: venous stasis and dermatitis Neuro oriented x3, CN's II-XII intact bilaterally and moves all extremities Psych Mood & Affect: flat affect Charges/Coding Visit Charges Inpatient E&M: 79828 Subs Hosp L3
[2020-12-20] MEDS: dilTIAZem 60 MG CAP.SR.12H PO ×2 (08:13→21:27)
[2020-12-20] MEDS: 0.9% Saline Lock 10 ML Syringe IV ×2 (08:14→21:30)
[2020-12-20] MEDS: TITRATION PARAMETER CHANGE 1 EACH IV (12:30)
[2020-12-20] MEDS: Phytonadione (Vit K1) 5 MG TABLET PO (12:30)
[2020-12-20] MEDS: Ferrous Sulfate 325 MG Tablet PO (12:31)
[2020-12-20] MEDS: Pantoprazole Sodium 20 MG Tablet PO (17:56)
[2020-12-20] MEDS: Metoprolol Tartrate 25 MG Tablet PO (21:27)
[2020-12-21] VITALS (23 sets, daily range): BP systolic 90–138; BP diastolic 48–80; PULSE 78–103; RESP 12–21; TEMP 36.4–36.7; O2SAT 91–96
[2020-12-21] MEDS: LORazepam 2 MG/ML Syringe 0.5 MG IV ×2 (03:19→21:57)
[2020-12-21] MEDS: Furosemide 500 MG in Empty Viaflex 50 mL 1 EACH CONT INF ×2 (03:36→21:51)
[2020-12-21] MEDS: Ipratropium 0.5 MG/2.5 ML SOLUTION INHALATION ×3 (06:40→18:59)
[2020-12-21 06:44] LABS: Absolute Lymphocyte Count 0.18 X10^3/uL (0.83-4.51); Absolute Neutrophil Count 4.2 X10^3/uL (2.0-7.7); Hematocrit 28.1 % (37-47); Hemoglobin 8.1 g/dL (12.0-15.0); Lymphocyte # 0.18 X10^3/ul (0.83-4.51); Mean Corp Hgb Conc 28.8 g/dL (32-36); Mean Corpuscular Volume 76.2 fL (81-99); Monocyte# 0.11 X10^3/uL; Monocyte% 2.4 % (0-10); NRBC Flagged by Analyzer 0 % (0-5); Neutrophil % 92.9 % (47-70); POSITIVE DIFFERENTIAL YES; POSITIVE MORPHOLOGY YES; Platelet Count 147 K/mm3 (150-450); RBC Distribution Width CV 24.9 % (11.6-14.6); RBC Distribution Width SD 67.7 fl (35.1-43.9); Red Blood Count 3.69 M/mm3 (4.2-5.4); White Blood Count 4.5 K/mm3 (4.4-11.0)
[2020-12-21 06:45] LABS: Differential Indicated SCAN CRITERIA MET
[2020-12-21 06:54] LABS: International Normalized Ratio 2.2; Prothrombin Time (Protime)PT. 23.4 SECONDS (11.7-14.9)
[2020-12-21 07:15] LABS: ALB/GLOB Ratio 0.7 RATIO (0.9-2.4); AST(SGOT) 19 U/L (15-37); Alanine Aminotransfer ALT/SGPT 19 U/L (13-56); Albumin, Serum 2.9 g/dL (3.2-5.0); Alkaline Phosphatase 51 U/L (45-117); Anion Gap 4 (5-15); BUN 78 mg/dL (7-18); BUN/Creat Ratio 27.3 RATIO (10-20); Calcium,Total 8.6 mg/dL (8.5-10.1); Chloride 100 mmol/L (98-107); Creatinine, Serum 2.86 mg/dL (0.55-1.02); EST Glomerular Filtration Rate 18 mL/min (>60); Est Glom Filt Rate - Afr Amer 22 mL/min (>60); Estimated Creatinine Clearance 14.65 ml/min; Ferritin 15 ng/mL (8-252); Glucose 132 mg/dL (74-106); Iron 24 ug/dL (50-170); Iron Binding Capacity,Total 384 ug/dL (250-450); PERCENT IRON SATURATION 6.2 % (15.0-55.0); Potassium 4.9 mmol/L (3.5-5.1); Protein, Total 6.9 g/dL (6.4-8.2); Sodium Level 137 mmol/L (136-145)
--- NOTE | 2020-12-21 07:25 | PCM.PN.INT ---
Assessment & Plan Assessment/Plan (1) Acute on chronic respiratory failure with hypoxemia: PLAN: RECOMMENDATIONS: 1. Continue to wean supplemental oxygen as tolerated. 2. Continue BiPAP support, at a minimum, with naps and nightly. Encourage breaks during the day 3. Continue diuretic therapy for hyperkalemia. Continue telemetry 4. Appreciate nephrology consultation. 5. Consider dosing Coumadin. Patient tolerating Lasix drip 6. Continue bronchodilators and steroids. Likely transition to prednisone tomorrow 7. Encourage incentive spirometer use. IMPRESSIONS: 1. Acute on chronic combined respiratory failure Likely multifactorial in etiology with possible untreated obstructive lung disease, untreated STACEY, alveolar hypoventilation secondary to obesity and decompensated heart failure with preserved ejection fraction likely contributing. Prior echocardiogram in July did reveal an ejection fraction of 45%. However, the patient did have moderate global RV systolic dysfunction with a right ventricular systolic pressure estimated to be 79 mmHg. Agree with continuing scheduled bronchodilators. Likely wean the prednisone tomorrow. Wean supplemental oxygen as tolerated. The patient should ideally be maintained on BiPAP therapy, at a minimum, with naps and nightly. Ability to tolerate BiPAP breaks should improve with diuresis. She would benefit from further outpatient pulmonary optimization after discharge. Again, pulmonary function studies and polysomnogram would be beneficial. 2. History of obstructive sleep apnea Recommend outpatient pulmonary follow-up so that repeat sleep study can be completed and the patient restarted on nocturnal Pap therapy, as clinically indicated. In the interim, I would recommend empiric utilization of BiPAP therapy with naps and nightly. 3. RV dysfunction/pulmonary hypertension The patient likely has secondary pulmonary hypertension to a number of different etiologies. Ideally, the patient will require further outpatient testing for optimization. Await response to Lasix drip. 4. Acute kidney injury Unclear etiology. Could be secondary to prolonged hemodynamic instability. Renal ultrasound was unremarkable. Lasix drip initiated per nephrology and patient appears to be tolerating. Appreciate nephrology input. Appears to be tolerating this at this time. Likely okay from my perspective to dose with Coumadin as needed for dialysis line is less likely. 5. Super morbid obesity/atrial fibrillation with RVR/history of tobacco dependency Complicates care, management, recovery and prognosis. Continue home medications as indicated. This note was generated with [employer] software. It may contain incorrect words, spelling, and punctuation that were not noted in checking the note before signing. Subjective Subjective Patient did well overnight. No acute issues were reported. Patient is not reporting any bleeding. Patient has tolerated diuretics well. Patient feels subjectively slightly improved compared to yesterday. Patient is able to tolerate 3 L nasal cannula while awake. Objective Data Objective Data Vital Signs: Vital Signs Temp Pulse Resp BP Pulse Ox 36.6 C 89 18 104/58 L 92 12/21/20 04:00 12/21/20 06:41 12/21/20 06:41 12/21/20 04:00 12/21/20 06:41 Oxygen Flow Rate (L/min) 3 Oxygen Delivery Method Nasal Cannula Weight: 178.5 kg Body Mass Index (BMI) 76.6 Intake & Output: Intake and Output for Last 24 Hours 12/19/20 12/20/20 12/21/20 23:59 23:59 23:59 Intake Total 406.94 / 426.94 732.44 / 732.44 214.5 / 214.5 Output Total 1000 / 1110 2340 / 2340 750 / 750 Balance -593.06 / -683.06 -1607.56 / -1607.56 -535.5 / -535.5 Lab / Micro Data Result Diagrams: 12/21/20 05:40 12/21/20 05:40 Labs: Laboratory Results - last 24 hr 12/21/20 05:40: WBC 4.5, RBC 3.69 L, Hgb 8.1 L, Hct 28.1 L, MCV 76.2 L, MCH 22.0 L, MCHC 28.8 L, RDW Std Deviation 67.7 H, RDW Coeff of Claudia 24.9 H, Plt Count 147 L, Immature Gran % (Auto) 0.700, Neut % (Auto) 92.9 H, Lymph % (Auto) 4.0 L, [place] % (Auto) 2.4, Eos % (Auto) 0.0, Baso % (Auto) 0.0, Absolute Neuts (auto) 4.2, Absolute Lymphs (auto) 0.18 L, Nucleated RBC % 0 12/21/20 05:40: Sodium 137, Potassium 4.9, Chloride 100, Carbon Dioxide 33.0 H, Anion Gap 4 L, BUN 78 H, Creatinine 2.86 H, Estim Creat Clear Calc 14.65, Est GFR (MDRD) Af Amer 22 L, Est GFR (MDRD) Non-Af 18 L, BUN/Creatinine Ratio 27.3 H, Glucose 132 H, Calcium 8.6, Iron 24 L, TIBC 384, Iron Saturation 6.2 L, Ferritin 15, Total Bilirubin 1.00, AST 19, ALT 19, Alkaline Phosphatase 51, Total Protein 6.9, Albumin 2.9 L, Globulin 4.0, Albumin/Globulin Ratio 0.7 L 12/21/20 05:40: PT 23.4 H, INR 2.2 Micro: Microbiology 12/19/20 22:30 Urine Catheter - Ya Urine Culture - Preliminary 12/18/20 10:50 Mucosa - Nasopharyngeal SARS-CoV-2 Antigen (Rapid) - Final 12/18/20 08:30 Interface Orders Respiratory Panel (PCR) - Final Physical Exam Const alert, oriented x3 and no apparent distress General Appearance: Negative for on BiPAP Nutritional Appearance: morbidly obese HEENT moist oral mucous membranes Neck No nuchal rigidity General: trachea midline Chest inspection of chest normal Resp normal respiratory effort Auscultation: diminished lung sounds; Negative for rales, rhonchi or wheezes Cardio regular rate, no murmurs, no rub and no gallops Rhythm: abnormal rhythm irregularly irregular GI normal to inspection, nondistended, normoactive bowel sounds Extremity General Extremity: edema bilateral lower extremity; Negative for clubbing Skin General Skin Exam: venous stasis and dermatitis Neuro oriented x3, CN's II-XII intact bilaterally and moves all extremities Psych Mood & Affect: flat affect Charges/Coding Visit Charges Inpatient E&M: 22635 Subs Hosp L2
[2020-12-21] MEDS: Metoprolol Tartrate 25 MG Tablet PO ×2 (08:00→21:46)
[2020-12-21] MEDS: dilTIAZem 60 MG CAP.SR.12H PO ×2 (08:01→21:46)
--- NOTE | 2020-12-21 09:37 | CASEMGMT ---
PHIL faxed updates to Annmarie with [facility] and asked that she start the pre-cert. Sagrario Philip [employer]
--- NOTE | 2020-12-21 12:00 | CASEMGMT ---
Palliative screening tool completed for [facility]. Patient meets criteria for palliative consult. Hospitalist updated and order received for consult. ARAMIS RICCI faxed consult to palliative care.
--- NOTE | 2020-12-21 14:18 | PCM.PN.REN ---
Subjective Subjective transferred to PCU, creatinine slightly improved. Denies nausea, vomiting. SOB improved. Urine output better with lasix drip Objective Data Objective Data Vital Signs: Vital Signs Temp Pulse Resp BP Pulse Ox 97.9 F 89 18 113/65 94 12/21/20 12:00 12/21/20 12:35 12/21/20 12:35 12/21/20 12:00 12/21/20 12:05 Oxygen Flow Rate (L/min) 3 Oxygen Delivery Method Nasal Cannula Weight: 179.8 kg Body Mass Index (BMI) 76.6 Intake & Output: Intake and Output for Last 24 Hours 12/19/20 12/20/20 12/21/20 23:59 23:59 23:59 Intake Total 406.94 / 426.94 732.44 / 732.44 514.5 / 514.5 Output Total 1000 / 1110 2340 / 2340 1400 / 1400 Balance -593.06 / -683.06 -1607.56 / -1607.56 -885.5 / -885.5 Lab / Micro Data Result Diagrams: 12/21/20 05:40 12/21/20 05:40 Labs: Laboratory Results - last 24 hr 12/21/20 05:40: WBC 4.5, RBC 3.69 L, Hgb 8.1 L, Hct 28.1 L, MCV 76.2 L, MCH 22.0 L, MCHC 28.8 L, RDW Std Deviation 67.7 H, RDW Coeff of Claudia 24.9 H, Plt Count 147 L, Immature Gran % (Auto) 0.700, Neut % (Auto) 92.9 H, Lymph % (Auto) 4.0 L, [place] % (Auto) 2.4, Eos % (Auto) 0.0, Baso % (Auto) 0.0, Absolute Neuts (auto) 4.2, Absolute Lymphs (auto) 0.18 L, Nucleated RBC % 0 12/21/20 05:40: Sodium 137, Potassium 4.9, Chloride 100, Carbon Dioxide 33.0 H, Anion Gap 4 L, BUN 78 H, Creatinine 2.86 H, Estim Creat Clear Calc 14.65, Est GFR (MDRD) Af Amer 22 L, Est GFR (MDRD) Non-Af 18 L, BUN/Creatinine Ratio 27.3 H, Glucose 132 H, Calcium 8.6, Iron 24 L, TIBC 384, Iron Saturation 6.2 L, Ferritin 15, Total Bilirubin 1.00, AST 19, ALT 19, Alkaline Phosphatase 51, Total Protein 6.9, Albumin 2.9 L, Globulin 4.0, Albumin/Globulin Ratio 0.7 L 12/21/20 05:40: PT 23.4 H, INR 2.2 Micro: Microbiology 12/21/20 09:10 Sputum, Expectorated/Coughed Gram Stain - Final 12/19/20 22:30 Urine Catheter - Ya Urine Culture - Preliminary GPC Poss Enterococcus sp 12/18/20 10:50 Mucosa - Nasopharyngeal SARS-CoV-2 Antigen (Rapid) - Final 12/18/20 08:30 Interface Orders Respiratory Panel (PCR) - Final Physical Exam Const alert and oriented x3 Resp Auscultation: rhonchi Cardio regular rate GI non-tender and non-distended GI Narrative: obese Palpation: soft Extremity General Extremity: edema bilateral Neuro Sensorium / Orientation: awake and alert Assessment & Plan Assessment/Plan (1) Acute kidney injury: PLAN: creatinine slightly improved urine output. (2) Hyperkalemia: PLAN: medical management. K stable, resolved (3) Hypotension: QUALIFIERS: Hypotension type: unspecified hypotension type Qualified Code(s): I95.9 - Hypotension, unspecified PLAN: keep SBP >100 for renal perfusion (4) Generalized weakness: PLAN: hx falls, debilitated, sedentary. ECF for rehab. (5) Supratherapeutic INR: PLAN: INR improved to 2.2 s/p vit K (6) Debility: (7) Morbid obesity due to excess calories: (8) Anemia: PLAN: iron deficient, add
--- NOTE | 2020-12-21 14:55 | CHAPLAIN ---
Type of Pastoral Visit _x__ Initial Visit ___ Follow-up Visit ___ On-call Visit ___ General Patient Visit ___ Spiritual Assessment ___ Family Conference ___ Bereavement ___ Rapid Response ___ Code Blue ___ Other (describe below) Pastoral Care Referral From _x__ Patient ___ Family ___ Nurse ___ Physician ___ Fire Supervisor ___ Director Education ___ Other (describe below) Sacrament/Intervention _x__ Active listening ___ Anointing ___ Moravian ___ Bereavement ___ Communion ___ [place] exploration ___ _x__ Life review _x__ Prayer ___ Reconciliation ___ Sacrament of Sick ___ Supportive presence ___ Wedding ___ Other (describe below) Pastoral Comments patient has reconciliation goals with her daughter and is burdened by this situation;
[2020-12-21] MEDS: Menthol/Lanolin/Calamine/Znox 113 GM Tube 1 APPLIC TOPICAL ×2 (15:26→21:46)
[2020-12-21] MEDS: Pantoprazole Sodium 20 MG Tablet PO (15:28)
[2020-12-21] MEDS: 0.9% Saline Lock 10 ML Syringe IV ×2 (15:28→21:51)
--- NOTE | 2020-12-21 17:05 | PN.HOSP_ITS ---
Subjective Subjective Patient was seen and examined. She denied any chest pain or dizziness. She is on 3 L of oxygen which is her usual. Objective Data Objective Data Vital Signs: Vital Signs Temp Pulse Resp BP Pulse Ox 98.0 F 91 18 138/80 H 94 12/21/20 16:00 12/21/20 16:00 12/21/20 16:00 12/21/20 16:00 12/21/20 16:00 Oxygen Flow Rate (L/min) 3 Oxygen Delivery Method Nasal Cannula Weight: 179.8 kg Body Mass Index (BMI) 76.6 Intake & Output: Intake and Output for Last 24 Hours 12/19/20 12/20/20 12/21/20 23:59 23:59 23:59 Intake Total 406.94 / 426.94 732.44 / 732.44 514.5 / 514.5 Output Total 1000 / 1110 2340 / 2340 1400 / 1400 Balance -593.06 / -683.06 -1607.56 / -1607.56 -885.5 / -885.5 Lab / Micro Data Result Diagrams: 12/21/20 05:40 12/21/20 05:40 Labs: Laboratory Results - last 24 hr 12/21/20 05:40: WBC 4.5, RBC 3.69 L, Hgb 8.1 L, Hct 28.1 L, MCV 76.2 L, MCH 22.0 L, MCHC 28.8 L, RDW Std Deviation 67.7 H, RDW Coeff of Claudia 24.9 H, Plt Count 147 L, Immature Gran % (Auto) 0.700, Neut % (Auto) 92.9 H, Lymph % (Auto) 4.0 L, [place] % (Auto) 2.4, Eos % (Auto) 0.0, Baso % (Auto) 0.0, Absolute Neuts (auto) 4.2, Absolute Lymphs (auto) 0.18 L, Nucleated RBC % 0 12/21/20 05:40: Sodium 137, Potassium 4.9, Chloride 100, Carbon Dioxide 33.0 H, Anion Gap 4 L, BUN 78 H, Creatinine 2.86 H, Estim Creat Clear Calc 14.65, Est GFR (MDRD) Af Amer 22 L, Est GFR (MDRD) Non-Af 18 L, BUN/Creatinine Ratio 27.3 H , Glucose 132 H, Calcium 8.6, Iron 24 L, TIBC 384, Iron Saturation 6.2 L, Fe rritin 15, Total Bilirubin 1.00, AST 19, ALT 19, Alkaline Phosphatase 51, Total Protein 6.9, Albumin 2.9 L, Globulin 4.0, Albumin/Globulin Ratio 0.7 L 12/21/20 05:40: PT 23.4 H, INR 2.2 Micro: Microbiology 12/21/20 09:10 Sputum, Expectorated/Coughed Gram Stain - Final 12/19/20 22:30 Urine Catheter - Ya Urine Culture - Preliminary GPC Poss Enterococcus sp 12/18/20 10:50 Mucosa - Nasopharyngeal SARS-CoV-2 Antigen (Rapid) - Final 12/18/20 08:30 Interface Orders Respiratory Panel (PCR) - Final Physical Exam Narrative General: Alert, Oriented x3, Cooperative, No apparent distress, on 3L oxygen HEENT: Atraumatic, PERRLA, EOMI, Normocephalic Oral: Moist Mucosa Neck: Supple Lungs: Normal air movement, Diminished Cardiovascular: Regular rate, Regular Rhythm, Normal S1, Normal S2, No murmurs Abdomen: Bowel Sounds Present, Soft, Non Tender, Non-Distended, No Hepato- splenomegaly Extremities: bilteral leg edema +2 Assessment & Plan Assessment/Plan (1) Acute on chronic respiratory failure with hypoxemia: (2) Supratherapeutic INR: (3) Acute kidney injury: (4) Hyperkalemia: PLAN: 1. Acute on chronic respiratory failure, multifactorial, secondary to acute asthma exacerbation/hypoventilation syndrome/fluid overload, improved, back to baseline Continue to encourage use of incentive spirometer 2. Acute on chronic systolic CHF, EF 45%, RVSP 79, improving, continue Lasix drip Continue CHF protocol 3. Acute kidney injury on CKD stage III, Unclear subtype/Hyperkalemia, improved on Lasix drip Will continue to monitor renal function 4. Chronic iron deficiency anemia, hemoglobin remains stable Continue on po iron 5. Hypotension, blood pressure medications changes made, will continue to monitor 6. Supratherapeutic INR, resolved, INR is currently 2.2 We will continue to trend 7. Rest of chronic medical conditions are stable. Charges/Coding Visit Charges Inpatient E&M: 44886 Subs Hosp L2
--- NOTE | 2020-12-21 20:12 | NURSING ---
Handoff report given to Dayanara SELF who is assuming care of pt. at this time.
--- NOTE | 2020-12-21 20:41 | CPS ---
pt states she does not want to wear bipap tonight
[2020-12-22] VITALS (17 sets, daily range): BP systolic 101–114; BP diastolic 59–75; PULSE 83–99; RESP 12–23; TEMP 36.2–36.9; O2SAT 94–99
[2020-12-22 05:58] LABS: Absolute Lymphocyte Count 0.16 X10^3/uL (0.83-4.51); Absolute Neutrophil Count 3.8 X10^3/uL (2.0-7.7); Hematocrit 29.2 % (37-47); Hemoglobin 8.4 g/dL (12.0-15.0); Lymphocyte # 0.16 X10^3/ul (0.83-4.51); Lymphocyte % 3.9 % (19-41); Mean Corp Hgb Conc 28.8 g/dL (32-36); Mean Corpuscular Hgb 22.2 pg (27.0-32.0); Mean Corpuscular Volume 77.2 fL (81-99); Monocyte# 0.16 X10^3/uL; Monocyte% 3.9 % (0-10); NRBC Flagged by Analyzer 0 % (0-5); Neutrophil # 3.75 X10^3/uL (2.7-7.7); Neutrophil % 91.7 % (47-70); POSITIVE DIFFERENTIAL YES; POSITIVE MORPHOLOGY YES; Platelet Count 141 K/mm3 (150-450); RBC Distribution Width CV 24.8 % (11.6-14.6); RBC Distribution Width SD 68.9 fl (35.1-43.9); Red Blood Count 3.78 M/mm3 (4.2-5.4); White Blood Count 4.1 K/mm3 (4.4-11.0)
[2020-12-22 06:01] LABS: Differential Indicated SCAN CRITERIA MET
[2020-12-22] MEDS: Menthol/Lanolin/Calamine/Znox 113 GM Tube 1 APPLIC TOPICAL ×3 (06:06→23:05)
[2020-12-22 06:15] LABS: International Normalized Ratio 1.6; Prothrombin Time (Protime)PT. 18.3 SECONDS (11.7-14.9)
[2020-12-22 06:34] LABS: ALB/GLOB Ratio 0.8 RATIO (0.9-2.4); AST(SGOT) 18 U/L (15-37); Alanine Aminotransfer ALT/SGPT 22 U/L (13-56); Albumin, Serum 3.1 g/dL (3.2-5.0); Alkaline Phosphatase 53 U/L (45-117); Anion Gap 6 (5-15); BUN 90 mg/dL (7-18); BUN/Creat Ratio 32.4 RATIO (10-20); Calcium,Total 8.5 mg/dL (8.5-10.1); Chloride 99 mmol/L (98-107); Creatinine, Serum 2.78 mg/dL (0.55-1.02); EST Glomerular Filtration Rate 18 mL/min (>60); Est Glom Filt Rate - Afr Amer 22 mL/min (>60); Estimated Creatinine Clearance 15.07 ml/min; Globulin 3.9 g/dL (2.2-4.2); Glucose 147 mg/dL (74-106); Potassium 4.8 mmol/L (3.5-5.1); Sodium Level 139 mmol/L (136-145)
[2020-12-22] MEDS: Ipratropium 0.5 MG/2.5 ML SOLUTION INHALATION ×3 (07:35→18:50)
--- NOTE | 2020-12-22 08:13 | PCM.PN.INT ---
Assessment & Plan Assessment/Plan (1) Acute on chronic respiratory failure with hypoxemia: PLAN: RECOMMENDATIONS: 1. Continue to wean supplemental oxygen as tolerated. 2. Continue BiPAP support, at a minimum, with naps and nightly. Encourage breaks during the day 3. Continue diuretic therapy for hyperkalemia. Continue telemetry 4. Would not recommend antibiotics for positive urine culture. 5. Consider dosing Coumadin. Patient tolerating Lasix drip 6. Continue bronchodilators and steroids. Likely transition to prednisone tomorrow 7. Encourage incentive spirometer use. IMPRESSIONS: 1. Acute on chronic combined respiratory failure Likely multifactorial in etiology with possible untreated obstructive lung disease, untreated STACEY, alveolar hypoventilation secondary to obesity and decompensated heart failure with preserved ejection fraction likely contributing. Prior echocardiogram in July did reveal an ejection fraction of 45%. However, the patient did have moderate global RV systolic dysfunction with a right ventricular systolic pressure estimated to be 79 mmHg. Agree with continuing scheduled bronchodilators. Patient will be transitioned to prednisone therapy with a 5-day stop date. 2. History of obstructive sleep apnea Recommend outpatient pulmonary follow-up so that repeat sleep study can be completed and the patient restarted on nocturnal Pap therapy, as clinically indicated. In the interim, I would recommend empiric utilization of BiPAP therapy with naps and nightly. 3. RV dysfunction/pulmonary hypertension The patient likely has secondary pulmonary hypertension to a number of different etiologies. Ideally, the patient will require further outpatient testing for optimization. Await continued response to Lasix drip. 4. Acute kidney injury Unclear etiology. Could be secondary to prolonged hemodynamic instability. Renal ultrasound was unremarkable. Lasix drip initiated per nephrology and patient appears to be tolerating. Appreciate nephrology input. Appears to be tolerating this at this time. Likely okay from my perspective to dose with Coumadin as needed for dialysis line is less likely. 5. Super morbid obesity/atrial fibrillation with RVR/history of tobacco dependency Complicates care, management, recovery and prognosis. Continue home medications as indicated. This note was generated with trip[employer]me dictation software. It may contain incorrect words, spelling, and punctuation that were not noted in checking the note before signing. Subjective Subjective Patient did well overnight. No acute issues were reported. Stated that she used BiPAP for 6 hours overnight, but this was not documented. Patient subjectively feels slightly improved compared to previous. Objective Data Objective Data Vital Signs: Vital Signs Temp Pulse Resp BP Pulse Ox 36.9 C 92 23 H 106/72 98 12/22/20 03:35 12/22/20 07:35 12/22/20 07:35 12/22/20 03:35 12/22/20 07:35 Oxygen Flow Rate (L/min) 3 Oxygen Delivery Method Nasal Cannula Weight: 176.3 kg Body Mass Index (BMI) 76.6 Intake & Output: Intake and Output for Last 24 Hours 12/20/20 12/21/20 12/22/20 23:59 23:59 23:59 Intake Total 732.44 / 732.44 1481.96 / 1481.96 305 / 305 Output Total 2340 / 2340 3150 / 3150 1350 / 1350 Balance -1607.56 / -1607.56 -1668.04 / -1668.04 -1045 / -1045 Lab / Micro Data Result Diagrams: 12/22/20 05:35 12/22/20 05:44 Labs: Laboratory Results - last 24 hr 12/22/20 05:35: WBC 4.1 L, RBC 3.78 L, Hgb 8.4 L, Hct 29.2 L, MCV 77.2 L, MCH 22.2 L, MCHC 28.8 L, RDW Std Deviation 68.9 H, RDW Coeff of Claudia 24.8 H, Plt Count 141 L, MPV TNP, Immature Gran % (Auto) 0.500, Neut % (Auto) 91.7 H, Lymph % (Auto) 3.9 L, [place] % (Auto) 3.9, Eos % (Auto) 0.0, Baso % (Auto) 0.0, Absolute Neuts (auto) 3.8, Absolute Lymphs (auto) 0.16 L, Nucleated RBC % 0, Diff Path Review October12/22/20 05:44: PT 18.3 H, INR 1.6 12/22/20 05:44: Sodium 139, Potassium 4.8, Chloride 99, Carbon Dioxide 34.0 H, Anion Gap 6, BUN 90 H, Creatinine 2.78 H, Estim Creat Clear Calc 15.07, Est GFR (MDRD) Af Amer 22 L, Est GFR (MDRD) Non-Af 18 L, BUN/Creatinine Ratio 32.4 H, Glucose 147 H, Calcium 8.5, Total Bilirubin 1.00, AST 18, ALT 22, Alkaline Phosphatase 53, Total Protein 7.0, Albumin 3.1 L, Globulin 3.9, Albumin/Globulin Ratio 0.8 L Micro: Microbiology 12/19/20 22:30 Urine Catheter - Ya Urine Culture - Final Enterococcus faecalis 12/21/20 09:10 Sputum, Expectorated/Coughed Gram Stain - Final 12/18/20 10:50 Mucosa - Nasopharyngeal SARS-CoV-2 Antigen (Rapid) - Final 12/18/20 08:30 Interface Orders Respiratory Panel (PCR) - Final Physical Exam Const alert, oriented x3 and no apparent distress General Appearance: Negative for on BiPAP Nutritional Appearance: morbidly obese HEENT moist oral mucous membranes Neck No nuchal rigidity General: trachea midline Chest inspection of chest normal Resp normal respiratory effort Auscultation: diminished lung sounds; Negative for rales, rhonchi or wheezes Cardio regular rate, no murmurs, no rub and no gallops Rhythm: abnormal rhythm irregularly irregular GI normal to inspection, nondistended, normoactive bowel sounds Extremity General Extremity: edema bilateral lower extremity; Negative for clubbing Skin General Skin Exam: venous stasis and dermatitis Neuro oriented x3, CN's II-XII intact bilaterally and moves all extremities Psych Mood & Affect: flat affect Charges/Coding Visit Charges Inpatient E&M: 54140 Subs Hosp L2
[2020-12-22] MEDS: dilTIAZem 60 MG CAP.SR.12H PO ×2 (08:40→23:04)
[2020-12-22] MEDS: predniSONE 20 MG Tablet 40 MG PO (08:40)
[2020-12-22] MEDS: Metoprolol Tartrate 25 MG Tablet PO ×2 (08:40→23:04)
--- NOTE | 2020-12-22 09:36 | PCM.PN.REN ---
Subjective Subjective no new issues, urination good on lasix drip. Creatinine slightly improved today. Holding dialysis Objective Data Objective Data Vital Signs: Vital Signs Temp Pulse Resp BP Pulse Ox 97.1 F L 98 18 113/67 94 12/22/20 08:38 12/22/20 08:40 12/22/20 08:38 12/22/20 08:40 12/22/20 08:38 Oxygen Flow Rate (L/min) 3 Oxygen Delivery Method Nasal Cannula Weight: 176.3 kg Body Mass Index (BMI) 76.6 Intake & Output: Intake and Output for Last 24 Hours 12/20/20 12/21/20 12/22/20 23:59 23:59 23:59 Intake Total 732.44 / 732.44 1481.96 / 1481.96 305 / 305 Output Total 2340 / 2340 3150 / 3150 1350 / 1350 Balance -1607.56 / -1607.56 -1668.04 / -1668.04 -1045 / -1045 Lab / Micro Data Result Diagrams: 12/22/20 05:35 12/22/20 05:44 Labs: Laboratory Results - last 24 hr 12/22/20 05:35: WBC 4.1 L, RBC 3.78 L, Hgb 8.4 L, Hct 29.2 L, MCV 77.2 L, MCH 22.2 L, MCHC 28.8 L, RDW Std Deviation 68.9 H, RDW Coeff of Claudia 24.8 H, Plt Count 141 L, MPV TNP, Immature Gran % (Auto) 0.500, Neut % (Auto) 91.7 H, Lymph % (Auto) 3.9 L, [place] % (Auto) 3.9, Eos % (Auto) 0.0, Baso % (Auto) 0.0, Absolute Neuts (auto) 3.8, Absolute Lymphs (auto) 0.16 L, Nucleated RBC % 0, Diff Path Review October12/22/20 05:44: PT 18.3 H, INR 1.6 12/22/20 05:44: Sodium 139, Potassium 4.8, Chloride 99, Carbon Dioxide 34.0 H, Anion Gap 6, BUN 90 H, Creatinine 2.78 H, Estim Creat Clear Calc 15.07, Est GFR (MDRD) Af Amer 22 L, Est GFR (MDRD) Non-Af 18 L, BUN/Creatinine Ratio 32.4 H, Glucose 147 H, Calcium 8.5, Total Bilirubin 1.00, AST 18, ALT 22, Alkaline Phosphatase 53, Total Protein 7.0, Albumin 3.1 L, Globulin 3.9, Albumin/Globulin Ratio 0.8 L Micro: Microbiology 12/19/20 22:30 Urine Catheter - Ya Urine Culture - Final Enterococcus faecalis 12/21/20 09:10 Sputum, Expectorated/Coughed Gram Stain - Final 12/18/20 10:50 Mucosa - Nasopharyngeal SARS-CoV-2 Antigen (Rapid) - Final 12/18/20 08:30 Interface Orders Respiratory Panel (PCR) - Final Physical Exam Const alert and oriented x3 Cardio Cardio Narrative: afib GI non-tender GI Narrative: obese Palpation: soft Extremity General Extremity: edema bilateral (anasarca) Neuro Sensorium / Orientation: awake and alert Psych cooperative Assessment & Plan Assessment/Plan (1) Acute kidney injury: PLAN: creatinine slightly improved to 2.78 urine output good. (2) Hyperkalemia: PLAN: medical management. K stable, resolved (3) Hypotension: QUALIFIERS: Hypotension type: unspecified hypotension type Qualified Code(s): I95.9 - Hypotension, unspecified PLAN: keep SBP >100 for renal perfusion (4) Generalized weakness: PLAN: hx falls, debilitated, sedentary. ECF for rehab. (5) Supratherapeutic INR: PLAN: INR improved to 2.2 s/p vit K (6) Debility: (7) Morbid obesity due to excess calories: (8) Anemia: PLAN: iron deficient, add (9) Anasarca: PLAN: continue lasix drip (10) Atrial fibrillation with RVR: PLAN: rate controlled
[2020-12-22] MEDS: Ferrous Sulfate 325 MG Tablet PO (11:17)
[2020-12-22 12:44] LABS: Pathologist Review Reviewed
--- NOTE | 2020-12-22 15:09 | PCM.CONS.P ---
Assessment & Plan Assessment/Plan (1) Generalized weakness: (2) Debility: (3) Chest pain: QUALIFIERS: Chest pain type: unspecified Qualified Code(s): R07.9 - Chest pain, unspecified (4) Acute on chronic respiratory failure with hypoxemia: (5) Arthritis: (6) Morbid obesity due to excess calories: (7) Atrial fibrillation with RVR: (8) Hyperkalemia: (9) DVT (deep venous thrombosis): (10) Anemia: QUALIFIERS: Anemia type: iron deficiency Iron deficiency anemia type: unspecified iron deficiency Qualified Code(s): D50.9 - Iron deficiency anemia, unspecified (11) Anasarca: PLAN: 60-year-old female with anasarca, atrial fibrillation with RVR, and frequent hospitalizations, seen today for palliative care consultation. 1. Generalized weakness and debility: Multifactorial, has many comorbidities that contribute, as well as morbid obesity. She is fatigued, especially with elevated heart rate. Would focus on controlling her chronic conditions as best possible. Education provided. 2. Shortness of breath: Again, multifactorial. She would benefit from baseline pulmonary function tests and repeat sleep study. Currently on baseline oxygen requirements of 3 L per nasal cannula. Still has a cough with intermittent sputum production. Encouraged incentive spirometer use. 3. A. fib with RVR/morbid obesity/arthritis/chronic hypoxemic respiratory failure/chronic anemia/anasarca: Complicates overall care, management, recovery and prognosis. She has a difficult time following up. She will return to the shelter for further therapy. Unclear what plans are when she is discharged from there, as she previously lived with her daughter and does not have any intention of going back. Thank you for the opportunity to participate in this patient's care, please do not hesitate to contact [facility] with any further questions or concerns. Palliative direct line is [phone]. We will follow up after discharge and will discuss palliative services further at that time. In the meantime, our liaison will contact patient's sister at her request, her name is Tanya Balderrama, . Greater than 50% of F2F visit dedicated to education and counseling of palliative care services, medications, comorbid conditions and potential assistance with management, and plan of care moving forward. Start time: 1303 End time: 1344 HPI Consult Data Date of Consult: 12/22/20 HPI Narrative HPI Narrative: NICOLE RAUSCH, is a 60 F, PMH as below, who presents to [facility] 12/17/2020 with complaints of increased shortness of breath and chest pain. Patient was admitted to the hospital 11/13 through 11/17/2020 for debility, A. fib with RVR, and hypertension. She was also admitted 08/17 through 08/20/2020 for A. fib RVR, acute CHF exacerbation, and debility. She has been in the shelter recently. Tube Laser Operator was consulted for acute on chronic hypoxemic respiratory failure. Notes that patient has untreated STACEY and possibly untreated obstructive lung disease. Suggested she has alveolar hypoventilation secondary to obesity and decompensated heart failure with preserved EF. Recommendations from them include weaning supplemental oxygen, continuing BiPAP with sleep, diuretic therapy for hyperkalemia and bronchodilators and steroids. Nephrology consulted as well for KANE, patient's renal function has improved. She is on a Lasix drip. Chest pain has resolved. It appears she has a chronic anemia with a hemoglobin in the 8-9 range. Her INR was supratherapeutic and Coumadin was held, today she was 1.6. Last echocardiogram was in July 2020, it was a technically limited study due to A. fib with RVR. It was recommended she have a repeat echo when heart rate was controlled. Findings showed mild mitral valve insufficiency, mildly dilated right ventricle, estimated RVSP at 55 mmHg. She did have a renal ultrasound, however impression was markedly limited examination that showed no gross acute abnormality of the kidneys. Patient somewhat lethargic on examination. She reports her chest is a little tight in the upper airway, otherwise no chest pain. No nausea or vomiting, no abdominal pain. Does have some sputum production intermittently, not sure what color that is. No urinary symptoms. Denies any chronic pain issues. She does have some lower extremity neuropathy. Short of breath with exertion. [facility] Medical History Arthritis Atrial fibrillation Blood clot in vein Carpal tunnel syndrome Chronic pain Congestive heart failure (CHF) Depression Former smoker GERD (gastroesophageal reflux disease) History of left heart catheterization (LHC) (~07/20/20) Obesity Pulmonary embolism Home Medications acetaminophen 325 mg tablet 650 mg PO BID PRN tab 07/05/19 [History Last Taken Unknown] calcium carb-magnesium carb 250 - 300 mg PO DAILY 07/05/19 [History Last Taken Unknown] cholecalciferol (vitamin D3) 125 mcg (5,000 unit) capsule 2,000 mcg PO DAILY 07/05/19 [History Last Taken 07/17/20] nystatin 1 applic TOPICAL BID bottle 08/20/20 [Rx Last Taken Unknown] diltiazem HCl 120 mg capsule,extended release 24 hr 120 mg PO DAILY #30 cap 10/16/20 [Rx Last Taken Unknown] ferrous sulfate 325 mg PO DAILY 11/13/20 [History Last Taken Unknown] omega-3 fatty acids 1,000 mg PO DAILY 11/13/20 [History Last Taken Unknown] vitamin B complex [B Complex-Vitamin B12] 1 tab PO DAILY 11/13/20 [History Last Taken Unknown] furosemide [Lasix] 40 mg PO DAILY 12/17/20 [History Last Taken Unknown] lisinopril 10 mg PO DAILY 12/17/20 [History Last Taken Unknown] metoprolol tartrate 25 mg PO BID 12/17/20 [History Last Taken Unknown] omeprazole 20 mg PO DAILY 12/17/20 [History Last Taken Unknown] warfarin 3 mg PO DAILY 12/17/20 [History Last Taken Unknown] Allergy/AdvReac Type Severity Reaction Status Date / Time enoxaparin [From Lovenox] Allergy Severe Rash & Verified 12/17/20 20:02 Itching peach Allergy Severe Other Verified 12/17/20 20:02 green tea Allergy Intermediate Itching Verified 12/17/20 20:02 Family History Mother Diabetes High cholesterol Father Diabetes Heart disease Hypertension Sister Diabetes High cholesterol Brother Diabetes Surgical History History of cholecystectomy History of oral surgery Social History Smoking Status: Former smoker alcohol intake: never substance use type: does not use what type of physical activity do you participate in: none ROS ROS Narrative Review of systems otherwise negative from a constitutional, HEENT, respiratory, cardiovascular, GI, genitourinary, musculoskeletal, skin, neurologic, psychiatric and hematologic system unless stated above. Physical Exam Narrative Patient sleeping, awakens easily. Appears very sleepy. Const General Appearance: cooperative and appears older than stated age Nutritional Appearance: morbidly obese HEENT normocephalic and head/scalp atraumatic Eyes conjunctivae normal Neck supple Neck Narrative: Large neck circumference General: trachea midline Resp normal respiratory effort Effort and Inspection: able to speak in complete sentences and symmetric chest movement Auscultation: rhonchi and wheezes; Negative for crackles or rales Cardio regular rate, S1 normal heart sound and S2 normal heart sound Rhythm: abnormal rhythm irregularly irregular GI soft to palpation Inspection: abdominal distention Auscultation: normoactive bowel sounds Extremity General Extremity: edema Skin no rashes or lesions noted Skin Narrative: Skin thickened, ready to lower extremities, some vascular changes Neuro CN's II-XII intact bilaterally and no focal motor deficits Neuro Narrative: Somewhat lethargic Psych cooperative and denies hallucinations
[2020-12-22] MEDS: Pantoprazole Sodium 20 MG Tablet PO (16:33)
--- NOTE | 2020-12-22 16:54 | PN.HOSP_ITS ---
Subjective Subjective Patient was seen and examined. No new complaints. Objective Data Objective Data Vital Signs: Vital Signs Temp Pulse Resp BP Pulse Ox 97.7 F L 87 16 101/59 L 97 12/22/20 16:30 12/22/20 16:30 12/22/20 16:30 12/22/20 16:30 12/22/20 16:30 Oxygen Flow Rate (L/min) 3 Oxygen Delivery Method Nasal Cannula Weight: 176.3 kg Body Mass Index (BMI) 76.6 Intake & Output: Intake and Output for Last 24 Hours 12/20/20 12/21/20 12/22/20 23:59 23:59 23:59 Intake Total 732.44 / 732.44 1481.96 / 1481.96 605 / 605 Output Total 2340 / 2340 3150 / 3150 2350 / 2350 Balance -1607.56 / -1607.56 -1668.04 / -1668.04 -1745 / -1745 Lab / Micro Data Result Diagrams: 12/22/20 05:35 12/22/20 05:44 Labs: Laboratory Results - last 24 hr 12/22/20 05:35: WBC 4.1 L, RBC 3.78 L, Hgb 8.4 L, Hct 29.2 L, MCV 77.2 L, MCH 22.2 L, MCHC 28.8 L, RDW Std Deviation 68.9 H, RDW Coeff of Claudia 24.8 H, Plt Count 141 L, MPV TNP, Immature Gran % (Auto) 0.500, Neut % (Auto) 91.7 H, Lymph % (Auto) 3.9 L, [place] % (Auto) 3.9, Eos % (Auto) 0.0, Baso % (Auto) 0.0, Absolute Neuts (auto) 3.8, Absolute Lymphs (auto) 0.16 L, Nucleated RBC % 0, Diff Path Review Reviewed 12/22/20 05:44: PT 18.3 H, INR 1.6 12/22/20 05:44: Sodium 139, Potassium 4.8, Chloride 99, Carbon Dioxide 34.0 H, Anion Gap 6, BUN 90 H, Creatinine 2.78 H, Estim Creat Clear Calc 15.07, Est GFR (MDRD) Af Amer 22 L, Est GFR (MDRD) Non-Af 18 L, BUN/Creatinine Ratio 32.4 H, Glucose 147 H, Calcium 8.5, Total Bilirubin 1.00, AST 18, ALT 22, Alkaline Phosphatase 53, Total Protein 7.0, Albumin 3.1 L, Globulin 3.9, Albumin/Globulin Ratio 0.8 L Micro: Microbiology 12/21/20 09:10 Sputum, Expectorated/Coughed Gram Stain - Final 12/21/20 09:10 Sputum, Expectorated/Coughed Respiratory Culture - Preliminary Staphylococcus aureus 12/19/20 22:30 Urine Catheter - Ya Urine Culture - Final Enterococcus faecalis 12/18/20 10:50 Mucosa - Nasopharyngeal SARS-CoV-2 Antigen (Rapid) - Final 12/18/20 08:30 Interface Orders Respiratory Panel (PCR) - Final Physical Exam Narrative General: Alert, Oriented x3, Cooperative, No apparent distress, on 3L oxygen HEENT: Atraumatic, PERRLA, EOMI, Normocephalic Oral: Moist Mucosa Neck: Supple Lungs: Normal air movement, Diminished Cardiovascular: Regular rate, Regular Rhythm, Normal S1, Normal S2, No murmurs Abdomen: Bowel Sounds Present, Soft, Non Tender, Non-Distended, No Hepato- splenomegaly Extremities: bilteral leg edema +2 Assessment & Plan Assessment/Plan (1) Acute on chronic respiratory failure with hypoxemia: (2) Supratherapeutic INR: (3) Acute kidney injury: (4) Hyperkalemia: PLAN: 1. Acute on chronic respiratory failure, multifactorial, secondary to acute asthma exacerbation/hypoventilation syndrome/fluid overload, improved, back to baseline Continue to encourage use of incentive spirometer 2. Acute on chronic systolic CHF, EF 45%, RVSP 79, improving, continue Lasix drip Continue CHF protocol 3. Acute kidney injury on CKD stage III, Unclear subtype/Hyperkalemia, improved on Lasix drip Cr is 2.78; Cr is 3.02. Will continue to monitor renal function 4. Chronic iron deficiency anemia, hemoglobin remains stable Continue on po iron 5. Hypotension, blood pressure medications changes made, will continue to monitor 6. Supratherapeutic INR, resolved, INR is currently 1.6 Will resume on Coumadin 2mg QHS, recheck INR in am 7. Rest of chronic medical conditions are stable. Charges/Coding Visit Charges Inpatient E&M: 30065 Subs Hosp L2
[2020-12-22] MEDS: Furosemide 500 MG in Empty Viaflex 50 mL 1 EACH CONT INF (21:30)
[2020-12-22] MEDS: MELATONIN 3 MG TABLET PO (23:05)
[2020-12-22] MEDS: LORazepam 2 MG/ML Syringe 0.5 MG IV (23:05)
[2020-12-22] MEDS: 0.9% Saline Lock 10 ML Syringe IV (23:06)
[2020-12-23] VITALS (19 sets, daily range): BP systolic 90–137; BP diastolic 53–109; PULSE 83–123; RESP 12–24; TEMP 36.4–37.1; O2SAT 76–98
[2020-12-23] MEDS: guaiFENesin 10 ML UDC (200MG/10ML) PO (03:01)
[2020-12-23 06:36] LABS: International Normalized Ratio 1.6; Prothrombin Time (Protime)PT. 18.1 SECONDS (11.7-14.9)
[2020-12-23] MEDS: Menthol/Lanolin/Calamine/Znox 113 GM Tube 1 APPLIC TOPICAL ×3 (06:38→21:19)
[2020-12-23 06:41] LABS: Albumin, Serum 3.2 g/dL (3.2-5.0); BUN 91 mg/dL (7-18); Calcium,Total 8.7 mg/dL (8.5-10.1); Chloride 98 mmol/L (98-107); Creatinine, Serum 2.76 mg/dL (0.55-1.02); EST Glomerular Filtration Rate 19 mL/min (>60); Est Glom Filt Rate - Afr Amer 22 mL/min (>60); Estimated Creatinine Clearance 15.18 ml/min; Glucose 148 mg/dL (74-106); Phosphorus 4.4 mg/dL (2.5-4.9); Potassium 4.3 mmol/L (3.5-5.1); Sodium Level 137 mmol/L (136-145)
[2020-12-23] MEDS: Ipratropium 0.5 MG/2.5 ML SOLUTION INHALATION ×3 (07:13→18:52)
--- NOTE | 2020-12-23 08:22 | PN.CC_ITS ---
Assessment & Plan Assessment/Plan (1) Acute on chronic respiratory failure with hypoxemia: PLAN: RECOMMENDATIONS: 1. Continue to wean supplemental oxygen as tolerated. 2. Continue BiPAP support, at a minimum, with naps and nightly. Encourage breaks during the day 3. Continue diuretic therapy for hyperkalemia. Continue telemetry 4. Could consider an infectious disease consult, but believe MSSA is colonization 5. Consider dosing Coumadin. Patient tolerating Lasix drip 6. Continue bronchodilators and steroids. Likely transition to prednisone tomorrow 7. Encourage incentive spirometer use. 8. Discharge planning to probable ECF once done with Lasix drip per nephrology IMPRESSIONS: 1. Acute on chronic combined respiratory failure Likely multifactorial in etiology with possible untreated obstructive lung disease, untreated STACEY, alveolar hypoventilation secondary to obesity and decompensated heart failure with preserved ejection fraction likely contributing. Prior echocardiogram in July did reveal an ejection fraction of 45%. However, the patient did have moderate global RV systolic dysfunction with a right ventricular systolic pressure estimated to be 79 mmHg. Agree with continuing scheduled bronchodilators. Patient will be transitioned to prednisone therapy with a 5-day stop date. Patient is growing MSSA in her sputum. This is 3+, but patient is not having fevers or leukocytosis. This may represent colonization. Could consider an infectious disease opinion. Patient does report itching and rash with previous penicillins. 2. History of obstructive sleep apnea Recommend outpatient pulmonary follow-up so that repeat sleep study can be completed and the patient restarted on nocturnal Pap therapy, as clinically indicated. In the interim, I would recommend empiric utilization of BiPAP therapy with naps and nightly. 3. RV dysfunction/pulmonary hypertension The patient likely has secondary pulmonary hypertension to a number of different etiologies. Ideally, the patient will require further outpatient testing for optimization. Await continued response to Lasix drip. 4. Acute kidney injury Relatively stable at this point. Unclear initial etiology. Could be secondary to prolonged hemodynamic instability. Renal ultrasound was unremarkable. Lasix drip initiated per nephrology and patient appears to be tolerating. Appreciate nephrology input. Appears to be tolerating this at this time. Likely okay from my perspective to dose with Coumadin as needed for dialysis line is less likely. 5. Super morbid obesity/atrial fibrillation with RVR/history of tobacco dep endency Complicates care, management, recovery and prognosis. Continue home medications as indicated. This note was generated with [employer] dictation software. It may contain incorrect words, spelling, and punctuation that were not noted in checking the note before signing. Subjective Subjective Patient did okay from a respiratory standpoint. Patient has had increased wheezing over the last 24 hours. No bleeding has been reported. Patient is not having any fever. Objective Data Objective Data Vital Signs: Vital Signs Temp Pulse Resp BP Pulse Ox 36.9 C 103 H 18 109/59 L 90 12/23/20 04:28 12/23/20 07:13 12/23/20 07:13 12/23/20 04:28 12/23/20 07:13 Oxygen Flow Rate (L/min) 3 Oxygen Delivery Method Nasal Cannula Weight: 174.6 kg Body Mass Index (BMI) 76.6 Intake & Output: Intake and Output for Last 24 Hours 12/21/20 12/22/20 12/23/20 23:59 23:59 23:59 Intake Total 1481.96 / 1481.96 799.52 / 799.52 120 / 120 Output Total 3150 / 3150 4150 / 4150 725 / 725 Balance -1668.04 / -1668.04 -3350.48 / -3350.48 -605 / -605 Lab / Micro Data Result Diagrams: 12/22/20 05:35 12/23/20 05:34 Labs: Laboratory Results - last 24 hr 12/22/20 05:35: Diff Path Review Reviewed 12/23/20 05:34: Sodium 137, Potassium 4.3, Chloride 98, Carbon Dioxide 36.0 H, BUN 91 H, Creatinine 2.76 H, Estim Creat Clear Calc 15.18, Est GFR (MDRD) Af Amer 22 L, Est GFR (MDRD) Non-Af 19 L, BUN/Creatinine Ratio 33.0 H, Glucose 148 H, Calcium 8.7, Phosphorus 4.4, Albumin 3.2 12/23/20 05:34: PT 18.1 H, INR 1.6 Micro: Microbiology 12/21/20 09:10 Sputum, Expectorated/Coughed Gram Stain - Final 12/21/20 09:10 Sputum, Expectorated/Coughed Respiratory Culture - Final Staphylococcus aureus 12/19/20 22:30 Urine Catheter - Ya Urine Culture - Final Enterococcus faecalis 12/18/20 10:50 Mucosa - Nasopharyngeal SARS-CoV-2 Antigen (Rapid) - Final 12/18/20 08:30 Interface Orders Respiratory Panel (PCR) - Final Physical Exam Const alert, oriented x3 and no apparent distress General Appearance: Negative for on BiPAP Nutritional Appearance: morbidly obese HEENT moist oral mucous membranes Neck No nuchal rigidity General: trachea midline Chest inspection of chest normal Resp normal respiratory effort Auscultation: wheezes and diminished lung sounds; Negative for rales or rhonchi Cardio regular rate, no murmurs, no rub and no gallops Rhythm: abnormal rhythm irregularly irregular GI normal to inspection, nondistended, normoactive bowel sounds Extremity General Extremity: edema bilateral lower extremity; Negative for clubbing Skin General Skin Exam: venous stasis and dermatitis Neuro oriented x3, CN's II-XII intact bilaterally and moves all extremities Psych Mood & Affect: flat affect Charges/Coding Visit Charges Inpatient E&M: 39358 Subs Hosp L2
--- NOTE | 2020-12-23 08:41 | NURSING ---
During turning pt in bed to reposition and change, pt became SOB and desat to 83% on 3LNC. Placed back onto back with HOB elevated and placed onto bipap. Within 5 mins pt satting 92-95% and reports SOB resolving and that she thinks she had an anxiety attack.
--- NOTE | 2020-12-23 09:41 | CASEMGMT ---
Addendum entered by Sagrario Philip 12/23/20 10:35: Physician is willing to do a peer to peer. SW called the phone number below to set up peer to peer and SW was told the physician needs to call the number and option 5 anytime before 1p. PHIL passed along this information to the physician. Sagrario ESPINOZA Original Note: PHIL called Annmarie with [facility]. She said patient's insurance would like a peer to peer done today by 1p. The phone number is [phone] option 5. She said patient was there private pay prior to coming to [facility]. PHIL told her SW will check with physician to see if she is willing to do this. Sagrario ESPINOZA
[2020-12-23] MEDS: LORazepam 2 MG/ML Syringe 0.5 MG IV ×2 (10:26→21:32)
[2020-12-23] MEDS: 0.9% Saline Lock 10 ML Syringe IV (10:27)
--- NOTE | 2020-12-23 10:41 | NURSING ---
1025-Report given to Ama SELF who is taking over care of pt
[2020-12-23] MEDS: dilTIAZem 60 MG CAP.SR.12H PO ×2 (12:00→21:06)
[2020-12-23] MEDS: predniSONE 20 MG Tablet 40 MG PO (12:00)
[2020-12-23] MEDS: Ferrous Sulfate 325 MG Tablet PO (12:00)
[2020-12-23] MEDS: Metoprolol Tartrate 25 MG Tablet PO ×2 (12:01→21:06)
[2020-12-23] MEDS: Furosemide 100 MG/10 ML Vial 80 MG IV ×2 (12:01→17:39)
--- NOTE | 2020-12-23 12:32 | CASEMGMT ---
Physician did the peer to peer and insurance is still denying patient for skilled care at the SNF. PHIL called Annmarie with [facility] and let her know. Physician will likely discharge patient tomorrow. Plan: d/c back to [facility] under intermediate level of care when medically ready. Sagrario Philip CD TECHNICIAN OLGA
--- NOTE | 2020-12-23 16:19 | PN.HOSP_ITS ---
Subjective Subjective Patient was seen and examined. She was denied precertification [facility]. She denied any chest pain or dizziness. We discussed about bariatric surgery. Objective Data Objective Data Vital Signs: Vital Signs Temp Pulse Resp BP Pulse Ox 98.7 F 100 18 132/109 H 92 12/23/20 14:27 12/23/20 14:27 12/23/20 14:27 12/23/20 14:27 12/23/20 14:27 Oxygen Flow Rate (L/min) 5 Oxygen Delivery Method Nasal Cannula Weight: 174.6 kg Body Mass Index (BMI) 76.6 Intake & Output: Intake and Output for Last 24 Hours 12/21/20 12/22/20 12/23/20 23:59 23:59 23:59 Intake Total 1481.96 / 1481.96 799.52 / 799.52 409.38 / 409.38 Output Total 3150 / 3150 4150 / 4150 1725 / 1725 Balance -1668.04 / -1668.04 -3350.48 / -3350.48 -1315.62 / -1315.62 Medical Nutrition Assessment Dietitian: Nutrition Therapy Diagnosis Start: 12/23/20 11:14 Freq: Status: Active Protocol: Document 12/23/20 11:14 RMA (Rec: 12/23/20 11:14 RMA [id number]) Nutrition Malnutrition Evidence of Malnutrition Exists No Clinical Problem Altered Nutrient-Related Laboratory Values Etiology related to renal dysfunction Signs/Symptoms as evidenced by BUN 91, Creat 2.76 Status Active Problem Unintended Weight Gain Status Inactive Problem Recommendation Dietitian Recommendations/Changes Continue 1999 calorie- controlled; cardiac; renal w/ low protein, low sodium, low potassium and 1500ml FR. ONS only if PO fails at meals- -will defer for now especially due to need to restrict protein/renal diet. Lab / Micro Data Result Diagrams: 12/22/20 05:35 12/23/20 05:34 Labs: Laboratory Results - last 24 hr 12/23/20 05:34: Sodium 137, Potassium 4.3, Chloride 98, Carbon Dioxide 36.0 H, BUN 91 H, Creatinine 2.76 H, Estim Creat Clear Calc 15.18, Est GFR (MDRD) Af Amer 22 L, Est GFR (MDRD) Non-Af 19 L, BUN/Creatinine Ratio 33.0 H, Glucose 148 H, Calcium 8.7, Phosphorus 4.4, Albumin 3.2 12/23/20 05:34: PT 18.1 H, INR 1.6 Micro: Microbiology 12/21/20 09:10 Sputum, Expectorated/Coughed Gram Stain - Final 12/21/20 09:10 Sputum, Expectorated/Coughed Respiratory Culture - Final Staphylococcus aureus 12/19/20 22:30 Urine Catheter - Ya Urine Culture - Final Enterococcus faecalis 12/18/20 10:50 Mucosa - Nasopharyngeal SARS-CoV-2 Antigen (Rapid) - Final 12/18/20 08:30 Interface Orders Respiratory Panel (PCR) - Final Physical Exam Narrative General: Alert, Oriented x3, Cooperative, No apparent distress, on 3L oxygen HEENT: Atraumatic, PERRLA, EOMI, Normocephalic Oral: Moist Mucosa Neck: Supple Lungs: Normal air movement, Diminished Cardiovascular: Regular rate, Regular Rhythm, Normal S1, Normal S2, No murmurs Abdomen: Bowel Sounds Present, Soft, Non Tender, Non-Distended, No Hepato- splenomegaly Extremities: bilteral leg edema +2 Assessment & Plan Assessment/Plan (1) Acute on chronic respiratory failure with hypoxemia: (2) Supratherapeutic INR: (3) Acute kidney injury: (4) Hyperkalemia: PLAN: 1. Acute on chronic respiratory failure, multifactorial, secondary to acute asthma exacerbation/hypoventilation syndrome/fluid overload, improved, back to baseline Sputum cultures growing MSSA but patient is clinically stable. Likely colonization. Continue to monitor for now Continue to encourage use of incentive spirometer 2. Acute on chronic systolic CHF, EF 45%, RVSP 79, improving, continue Lasix drip Continue CHF protocol 3. Acute kidney injury on CKD stage III, Unclear subtype/Hyperkalemia, improved on Lasix drip Cr is 2.78; Cr is 2.76. Will continue to monitor renal function 4. Chronic iron deficiency anemia, hemoglobin remains stable Continue on po iron 5. Hypotension, blood pressure medications changes made, will continue to monitor 6. Supratherapeutic INR, resolved, INR is currently 1.6 Continue on Coumadin 2mg QHS, recheck INR in am 7. Rest of chronic medical conditions are stable. Charges/Coding Visit Charges Inpatient E&M: 89825 Subs Hosp L2
[2020-12-23] MEDS: Pantoprazole Sodium 20 MG Tablet PO (17:39)
[2020-12-23] MEDS: Jantoven 2 MG Tablet PO (17:39)
[2020-12-23] MEDS: Acetaminophen 325 MG Tablet 650 MG PO (21:32)
[2020-12-23] MEDS: MELATONIN 3 MG TABLET PO (21:32)
[2020-12-24] VITALS (16 sets, daily range): BP systolic 96–103; BP diastolic 50–80; PULSE 74–96; RESP 12–20; TEMP 36–36.6; O2SAT 86–96
--- NOTE | 2020-12-24 00:53 | CPS ---
Patient's pulse ox still 87% on 14/7 RR12 45% BiPAP. Will change BiPAP pressures to 15/8 RR12 50% to promote better oxygenation. Will recheck patient to assess improvement or make more changes. RN aware of changes.
[2020-12-24] MEDS: Menthol/Lanolin/Calamine/Znox 113 GM Tube 1 APPLIC TOPICAL ×2 (05:40→14:05)
[2020-12-24] MEDS: Ipratropium 0.5 MG/2.5 ML SOLUTION INHALATION ×2 (06:38→13:02)
[2020-12-24 06:40] LABS: Albumin, Serum 2.8 g/dL (3.2-5.0); BUN 93 mg/dL (7-18); BUN/Creat Ratio 35.8 RATIO (10-20); Calcium,Total 8.6 mg/dL (8.5-10.1); Chloride 98 mmol/L (98-107); EST Glomerular Filtration Rate 20 mL/min (>60); Est Glom Filt Rate - Afr Amer 24 mL/min (>60); Estimated Creatinine Clearance 16.11 ml/min; Glucose 151 mg/dL (74-106); Phosphorus 4.5 mg/dL (2.5-4.9); Potassium 4.3 mmol/L (3.5-5.1); Sodium Level 139 mmol/L (136-145)
[2020-12-24 06:51] LABS: International Normalized Ratio 1.7; Prothrombin Time (Protime)PT. 19.7 SECONDS (11.7-14.9)
--- NOTE | 2020-12-24 08:25 | PCM.PN.INT ---
Assessment & Plan Assessment/Plan (1) Acute on chronic respiratory failure with hypoxemia: PLAN: RECOMMENDATIONS: 1. Continue to wean supplemental oxygen as tolerated. 2. Continue BiPAP support, at a minimum, with naps and nightly. Encourage breaks during the day 3. Diuretic therapy likely sufficient for hyperkalemia. Continue telemetry 4. Could consider an infectious disease consult, but believe MSSA is colonization 5. Continue Coumadin dosing 6. Continue bronchodilators and steroids. Likely transition to prednisone tomorrow 7. Encourage incentive spirometer use. 8. Hemodynamically stable on current baseline oxygen. Will sign off from a pulmonary/critical care perspective IMPRESSIONS: 1. Acute on chronic combined respiratory failure Likely multifactorial in etiology with possible untreated obstructive lung disease, untreated STACEY, alveolar hypoventilation secondary to obesity and decompensated heart failure with preserved ejection fraction likely contributing. Prior echocardiogram in July did reveal an ejection fraction of 45%. However, the patient did have moderate global RV systolic dysfunction with a right ventricular systolic pressure estimated to be 79 mmHg. Agree with continuing scheduled bronchodilators. Patient will be transitioned to prednisone therapy with a 5-day stop date. Patient is growing MSSA in her sputum. This is 3+, but patient is not having fevers or leukocytosis. This may represent colonization. Could consider an infectious disease opinion. Patient has been relatively stable over the last 48 hours from a respiratory standpoint. Will sign off from a critical care/pulmonary perspective. Patient can follow-up as an outpatient if requested. Patient will likely need to continue with diuretics per nephrology recommendations. 2. History of obstructive sleep apnea Recommend outpatient pulmonary follow-up so that repeat sleep study can be completed and the patient restarted on nocturnal Pap therapy, as clinically indicated. In the interim, I would recommend empiric utilization of BiPAP therapy with naps and nightly. 3. RV dysfunction/pulmonary hypertension The patient likely has secondary pulmonary hypertension to a number of different etiologies. Ideally, the patient will require further outpatient testing for optimization. Patient transition to intermittent Lasix 4. Acute kidney injury Relatively stable at this point. Unclear initial etiology. Could be secondary to prolonged hemodynamic instability. Renal ultrasound was unremarkable. Lasix drip initiated per nephrology and patient appears to be tolerating. Appreciate nephrology input. Appears to be tolerating this at this time. Likely okay from my perspective to dose with Coumadin as needed for dialysis line is less likely. 5. Super morbid obesity/atrial fibrillation with RVR/history of tobacco dependency Complicates care, management, recovery and prognosis. Continue home medications as indicated. This note was generated with [employer] dictation software. It may contain incorrect words, spelling, and punctuation that were not noted in checking the note before signing. Subjective Subjective Patient did okay overnight. Patient has been taken off of Lasix drip. No bleeding complications have been reported. Patient's oxygenation status has stabilized. Patient had several questions about congestive heart failure and its long-term prognosis. Objective Data Objective Data Vital Signs: Vital Signs Temp Pulse Resp BP Pulse Ox 36.4 C L 83 18 103/56 L 96 12/24/20 08:15 12/24/20 08:15 12/24/20 08:15 12/24/20 08:15 12/24/20 08:15 Oxygen Flow Rate (L/min) 5 Oxygen Delivery Method Nasal Cannula Weight: 172.3 kg Body Mass Index (BMI) 76.6 Intake & Output: Intake and Output for Last 24 Hours 12/22/20 12/23/20 12/24/20 23:59 23:59 23:59 Intake Total 799.52 / 799.52 509.38 / 509.38 Output Total 4150 / 4150 2875 / 2875 350 / 350 Balance -3350.48 / -3350.48 -2365.62 / -2365.62 -350 / -350 Medical Nutrition Assessment Dietitian: Nutrition Therapy Diagnosis Start: 12/23/20 11:14 Freq: Status: Active Protocol: Document 12/23/20 11:14 RMA (Rec: 12/23/20 11:14 RMA [id number]) Nutrition Malnutrition Evidence of Malnutrition Exists No Clinical Problem Altered Nutrient-Related Laboratory Values Etiology related to renal dysfunction Signs/Symptoms as evidenced by BUN 91, Creat 2.76 Status Active Problem Unintended Weight Gain Status Inactive Problem Recommendation Dietitian Recommendations/Changes Continue 1999 calorie- controlled; cardiac; renal w/ low protein, low sodium, low potassium and 1500ml FR. ONS only if PO fails at meals- -will defer for now especially due to need to restrict protein/renal diet. Lab / Micro Data Result Diagrams: 12/22/20 05:35 12/24/20 05:51 Labs: Laboratory Results - last 24 hr 12/24/20 05:51: PT 19.7 H, INR 1.7 12/24/20 05:51: Sodium 139, Potassium 4.3, Chloride 98, Carbon Dioxide 36.0 H, BUN 93 H, Creatinine 2.60 H, Estim Creat Clear Calc 16.11, Est GFR (MDRD) Af Amer 24 L, Est GFR (MDRD) Non-Af 20 L, BUN/Creatinine Ratio 35.8 H, Glucose 151 H, Calcium 8.6, Phosphorus 4.5, Albumin 2.8 L Micro: Microbiology 12/21/20 09:10 Sputum, Expectorated/Coughed Gram Stain - Final 12/21/20 09:10 Sputum, Expectorated/Coughed Respiratory Culture - Final Staphylococcus aureus 12/19/20 22:30 Urine Catheter - Ya Urine Culture - Final Enterococcus faecalis 12/18/20 10:50 Mucosa - Nasopharyngeal SARS-CoV-2 Antigen (Rapid) - Final 12/18/20 08:30 Interface Orders Respiratory Panel (PCR) - Final Physical Exam Const alert, oriented x3 and no apparent distress General Appearance: Negative for on BiPAP Nutritional Appearance: morbidly obese HEENT moist oral mucous membranes Neck No nuchal rigidity General: trachea midline Chest inspection of chest normal Resp normal respiratory effort Auscultation: wheezes and diminished lung sounds; Negative for rales or rhonchi Cardio regular rate, no murmurs, no rub and no gallops Rhythm: abnormal rhythm irregularly irregular GI normal to inspection, nondistended, normoactive bowel sounds Extremity General Extremity: edema bilateral lower extremity; Negative for clubbing Skin General Skin Exam: venous stasis and dermatitis Neuro oriented x3, CN's II-XII intact bilaterally and moves all extremities Psych Mood & Affect: flat affect Charges/Coding Visit Charges Inpatient E&M: 07026 Subs Hosp L2
[2020-12-24] MEDS: dilTIAZem 60 MG CAP.SR.12H PO (08:26)
[2020-12-24] MEDS: predniSONE 20 MG Tablet 40 MG PO (08:26)
[2020-12-24] MEDS: Metoprolol Tartrate 25 MG Tablet PO (08:26)
--- NOTE | 2020-12-24 08:27 | PCM.PN.REN ---
Subjective Subjective late entry for 12/23/20 Pt on bipap, complains of sinus congestion. Otherwise diuresing well on lasix drip Objective Data Objective Data Vital Signs: Vital Signs Temp Pulse Resp BP Pulse Ox 97.5 F L 83 18 103/56 L 96 12/24/20 08:15 12/24/20 08:26 12/24/20 08:15 12/24/20 08:15 12/24/20 08:15 Oxygen Flow Rate (L/min) 5 Oxygen Delivery Method Nasal Cannula Weight: 172.3 kg Body Mass Index (BMI) 76.6 Intake & Output: Intake and Output for Last 24 Hours 12/22/20 12/23/20 12/24/20 23:59 23:59 23:59 Intake Total 799.52 / 799.52 509.38 / 509.38 Output Total 4150 / 4150 2875 / 2875 350 / 350 Balance -3350.48 / -3350.48 -2365.62 / -2365.62 -350 / -350 Medical Nutrition Assessment Dietitian: Nutrition Therapy Diagnosis Start: 12/23/20 11:14 Freq: Status: Active Protocol: Document 12/23/20 11:14 RMA (Rec: 12/23/20 11:14 RMA [id number]) Nutrition Malnutrition Evidence of Malnutrition Exists No Clinical Problem Altered Nutrient-Related Laboratory Values Etiology related to renal dysfunction Signs/Symptoms as evidenced by BUN 91, Creat 2.76 Status Active Problem Unintended Weight Gain Status Inactive Problem Recommendation Dietitian Recommendations/Changes Continue 1999 calorie- controlled; cardiac; renal w/ low protein, low sodium, low potassium and 1500ml FR. ONS only if PO fails at meals- -will defer for now especially due to need to restrict protein/renal diet. Lab / Micro Data Result Diagrams: 12/22/20 05:35 12/24/20 05:51 Labs: Laboratory Results - last 24 hr 12/24/20 05:51: PT 19.7 H, INR 1.7 12/24/20 05:51: Sodium 139, Potassium 4.3, Chloride 98, Carbon Dioxide 36.0 H, BUN 93 H, Creatinine 2.60 H, Estim Creat Clear Calc 16.11, Est GFR (MDRD) Af Amer 24 L, Est GFR (MDRD) Non-Af 20 L, BUN/Creatinine Ratio 35.8 H, Glucose 151 H, Calcium 8.6, Phosphorus 4.5, Albumin 2.8 L Micro: Microbiology 12/21/20 09:10 Sputum, Expectorated/Coughed Gram Stain - Final 12/21/20 09:10 Sputum, Expectorated/Coughed Respiratory Culture - Final Staphylococcus aureus 12/19/20 22:30 Urine Catheter - Ya Urine Culture - Final Enterococcus faecalis 12/18/20 10:50 Mucosa - Nasopharyngeal SARS-CoV-2 Antigen (Rapid) - Final 12/18/20 08:30 Interface Orders Respiratory Panel (PCR) - Final Physical Exam Const alert and oriented x3 General Appearance: on BiPAP Resp Auscultation: diminished lung sounds Cardio Cardio Narrative: afib GI non-tender GI Narrative: obese Auscultation: hyperactive bowel sounds Palpation: soft Neuro Sensorium / Orientation: awake and alert Psych cooperative Assessment & Plan Assessment/Plan (1) Acute kidney injury: PLAN: creatinine slightly improved urine output good. (2) Anasarca: PLAN: change lasix drip to iv lasix 80mg bid (3) Hypotension: QUALIFIERS: Hypotension type: unspecified hypotension type Qualified Code(s): I95.9 - Hypotension, unspecified PLAN: keep SBP >100 for renal perfusion (4) Generalized weakness: PLAN: hx falls, debilitated, sedentary. ECF for rehab. (5) Supratherapeutic INR: PLAN: INR improved (6) Debility: (7) Morbid obesity due to excess calories: (8) Anemia: QUALIFIERS: Anemia type: iron deficiency Iron deficiency anemia type: unspecified iron deficiency Qualified Code(s): D50.9 - Iron deficiency anemia, unspecified PLAN: iron deficient, add (9) Atrial fibrillation with RVR: PLAN: rate controlled
--- NOTE | 2020-12-24 08:35 | PCM.PN.REN ---
Subjective Subjective diuresing well on iv lasix bid. NEgative balance. Still with edema but improving. Creatinine improved to 2.6. Objective Data Objective Data Vital Signs: Vital Signs Temp Pulse Resp BP Pulse Ox 97.5 F L 83 18 103/56 L 96 12/24/20 08:15 12/24/20 08:26 12/24/20 08:15 12/24/20 08:15 12/24/20 08:15 Oxygen Flow Rate (L/min) 5 Oxygen Delivery Method Nasal Cannula Weight: 172.3 kg Body Mass Index (BMI) 76.6 Intake & Output: Intake and Output for Last 24 Hours 12/22/20 12/23/20 12/24/20 23:59 23:59 23:59 Intake Total 799.52 / 799.52 509.38 / 509.38 150 / 150 Output Total 4150 / 4150 2875 / 2875 350 / 350 Balance -3350.48 / -3350.48 -2365.62 / -2365.62 -200 / -200 Medical Nutrition Assessment Dietitian: Nutrition Therapy Diagnosis Start: 12/23/20 11:14 Freq: Status: Active Protocol: Document 12/23/20 11:14 RMA (Rec: 12/23/20 11:14 RMA [id number]) Nutrition Malnutrition Evidence of Malnutrition Exists No Clinical Problem Altered Nutrient-Related Laboratory Values Etiology related to renal dysfunction Signs/Symptoms as evidenced by BUN 91, Creat 2.76 Status Active Problem Unintended Weight Gain Status Inactive Problem Recommendation Dietitian Recommendations/Changes Continue 1999 calorie- controlled; cardiac; renal w/ low protein, low sodium, low potassium and 1500ml FR. ONS only if PO fails at meals- -will defer for now especially due to need to restrict protein/renal diet. Lab / Micro Data Result Diagrams: 12/22/20 05:35 12/24/20 05:51 Labs: Laboratory Results - last 24 hr 12/24/20 05:51: PT 19.7 H, INR 1.7 12/24/20 05:51: Sodium 139, Potassium 4.3, Chloride 98, Carbon Dioxide 36.0 H, BUN 93 H, Creatinine 2.60 H, Estim Creat Clear Calc 16.11, Est GFR (MDRD) Af Amer 24 L, Est GFR (MDRD) Non-Af 20 L, BUN/Creatinine Ratio 35.8 H, Glucose 151 H, Calcium 8.6, Phosphorus 4.5, Albumin 2.8 L Micro: Microbiology 12/21/20 09:10 Sputum, Expectorated/Coughed Gram Stain - Final 12/21/20 09:10 Sputum, Expectorated/Coughed Respiratory Culture - Final Staphylococcus aureus 12/19/20 22:30 Urine Catheter - Ya Urine Culture - Final Enterococcus faecalis 12/18/20 10:50 Mucosa - Nasopharyngeal SARS-CoV-2 Antigen (Rapid) - Final 12/18/20 08:30 Interface Orders Respiratory Panel (PCR) - Final Physical Exam Const alert and oriented x3 Constitutional Narrative: responding appropriately on NC. Mild conversational dyspnea that is chronic HEENT normocephalic Eyes PERRL Neck supple Resp Auscultation: rhonchi and diminished lung sounds Cardio Cardio Narrative: afib GI non-tender GI Narrative: obese Palpation: soft Bladder / Kidney Exam: catheter in place Extremity Extremity Narrative: anasarca 4+ pitting edema General Extremity: edema bilateral (anasarca) Neuro Sensorium / Orientation: awake and alert Psych cooperative Assessment & Plan Assessment/Plan (1) Acute kidney injury: PLAN: creatinine improved to 2.6 (2) Anasarca: PLAN: iv lasix 80mg bid. Discussed fluid restriction to 1L a day (3) Hypotension: QUALIFIERS: Hypotension type: unspecified hypotension type Qualified Code(s): I95.9 - Hypotension, unspecified PLAN: keep SBP >100 for renal perfusion (4) Generalized weakness: PLAN: hx falls, debilitated, sedentary. ECF for rehab. (5) Supratherapeutic INR: PLAN: INR improved (6) Debility: PLAN: ECF (7) Morbid obesity due to excess calories: PLAN: sedentary lifestyle (8) Anemia: QUALIFIERS: Anemia type: iron deficiency Iron deficiency anemia type: unspecified iron deficiency Qualified Code(s): D50.9 - Iron deficiency anemia, unspecified PLAN: iron deficient, iv iron 250mg x2.hgb 8.4g (9) Atrial fibrillation with RVR: PLAN: rate controlled
[2020-12-24] MEDS: Furosemide 100 MG/10 ML Vial 80 MG IV ×2 (09:14→17:23)
[2020-12-24] MEDS: LORazepam 2 MG/ML Syringe 0.5 MG IV (10:32)
[2020-12-24] MEDS: 0.9% Saline Lock 10 ML Syringe IV (10:32)
--- NOTE | 2020-12-24 12:42 | CASEMGMT ---
PHIL called Annmarie with [facility] and let her know that patient will be returning today. Sagrario Philip ROTARY OPERATOR OLGA
--- NOTE | 2020-12-24 13:18 | PCM.TXEXTCAR ---
Diet 12/20/20 11:12 Diet: Renal - ConsCHO - Vahid Cont Food consistency:: Regular Liquid Consistency:: Regular/Thin Dietary Modifications:: Sodium Restricted Potassium Restricted Protein Restricted Cardiac / Heart Healthy Is pt able to select menu?: Yes Fluid restriction:: 1500 mL How many daily calories?: 2000 calorie Routine Orders/Code Status O2 Liters per Minute: 3 O2 Frequency: Continuous Keep PO Greater than or Equal to (%): 94 Routine Lab Work: CBC (within 3 days), BMP (within 3 days) and INR (daily) Code Status: Full Code Wound(s) LEFT HIP: Wound Type: Pressure Injury left upper posterior thigh: Wound Type: open wound midline coccyx: Wound Type: Skin Tear left upper inner thigh: Wound Type: Skin Tear Therapies Weight Bearing: Weight bearing as tolerated Physical Therapy: Eval and Treat Occupational Therapy: Eval and Treat Problem/Diagnosis (1) Acute kidney injury: Status: Acute (2) Anasarca: Status: Acute (3) Hypotension: Status: Acute (4) Generalized weakness: Status: Acute (5) Supratherapeutic INR: Status: Acute (6) Debility: Status: Acute (7) Morbid obesity due to excess calories: Status: Acute (8) Anemia: Status: Acute (9) Atrial fibrillation with RVR: Status: Acute Allergies/Procedures Done in Hospital Allergies enoxaparin [From Lovenox] Allergy (Severe, Verified 12/17/20 20:02) Rash & Itching peach Allergy (Severe, Verified 12/17/20 20:02) Other green tea Allergy (Intermediate, Verified 12/17/20 20:02) Itching Procedures: None Type of Care/Length of Stay Estimated LOS: Convalescent Care Less Than 30 days Type of Care Needed: Skilled Rehab Potential: Fair Prognosis: Fair Additional Orders/Day of Discharge Additional Orders: BiPAP at night and for naps Day of Discharge: 12/24/20 Dietary and Speech Recommendations Dietitian Recommendations/Changes: Continue 2000 calorie-controlled; cardiac; renal w/ low protein, low sodium, low potassium and 1500ml FR. ONS only if PO fails at meals--will defer for now especially due to need to restrict protein/renal diet. Discharge Plan Admission Admit Date/Time: 12/18/20 09:49 Primary Reason for Your Visit: Acute CHF Attending Provider: Tabitha Jarrett Primary Care Provider: Emily Husain Consulting Providers: Randolph Solano ; Jenny Baptiste Instructions Patient Instructions: ED Chest Pain, Noncardiac Discharge Orders/Prescriptions Prescriptions: New prednisone 20 mg Tablet 40 mg PO BREAKFAST 5 Days Qty: 0 RF: 0 diltiazem HCl 60 mg Capsule,Extended Release 12 Hr 60 mg PO Q12 Qty: 60 RF: 0 Continued cholecalciferol (vitamin D3) 125 mcg (5,000 unit) capsule 2,000 mcg PO DAILY RF: 0 calcium carb-magnesium carb 250 - 300 mg PO DAILY RF: 0 acetaminophen [Tylenol] 325 mg tablet 650 mg PO BID PRN (Reason: Pain 1-10 Or Fever) RF: 0 ferrous sulfate 325 MG tablet 325 mg PO DAILY RF: 0 vitamin B complex [B Complex-Vitamin B12] Tablet 1 tab PO DAILY RF: 0 omeprazole 20 mg Capsule,Delayed Release(Dr/Ec) 20 mg PO DAILY RF: 0 warfarin 5 mg tablet 3 mg PO DAILY RF: 0 metoprolol tartrate 50 mg tablet 25 mg PO BID RF: 0 Discontinued nystatin 1 APPLIC bottle 1 applic TOPICAL BID RF: 0 furosemide [Lasix] 40 mg Tablet 40 mg PO DAILY RF: 0 lisinopril 20 mg tablet 10 mg PO DAILY RF: 0 diltiazem HCl 120 mg capsule,extended release 24hr 120 mg PO DAILY Qty: 30 RF: 0 No Action omega-3 fatty acids Capsule 1,000 mg PO DAILY RF: 0 Referrals / Follow Up: Emily Husain MD [Primary Care Provider] - Within 2 Weeks Disposition Disposition (needs filled in before D/C Order can be placed): Residential Facility
--- NOTE | 2020-12-24 13:27 | DS.PCM_ITS ---
Providers Date of Admission: 12/18/20 Date of Discharge: 12/24/20 Primary Care Physician: Dr. Emily Husain MD Consultations 12/18/20 09:53 Consult: Physician Practice Coordinator / Pulmonary Medicine Routine Consulting Provider: Randolph Solano Reason for Consult: Resp failure, ? Asthma Exacerbation, admitted w/ CP initially. EMERGENT Consult: No Notified: Yes Date Notified: 12/18/20 Time Notified: 09:53 Method of Notification: cortext 12/19/20 06:16 Consult: Nephrology Routine Consulting Provider: Jenny Baptiste Reason for Consult: KANE, Hyperkalemia EMERGENT Consult: No MD Notified: Yes Date Notified: 12/19/20 Time Notified: 06:16 Method of Notification: cortext Reason For Visit: CHEST PAIN Diagnosis Discharge Diagnosis (1) Acute kidney injury: Status: Acute Code(s): N17.9 - Acute kidney failure, unspecified (2) Anasarca: Status: Acute Code(s): R60.1 - Generalized edema (3) Hypotension: Status: Resolved Code(s): I95.9 - Hypotension, unspecified Qualifiers: Hypotension type: unspecified hypotension type Qualified Code(s): I95.9 - Hypotension, unspecified (4) Generalized weakness: Status: Acute Code(s): R53.1 - Weakness (5) Supratherapeutic INR: Status: Resolved Code(s): R79.1 - Abnormal coagulation profile (6) Debility: Status: Acute Code(s): R53.81 - Other malaise (7) Morbid obesity due to excess calories: Status: Chronic Code(s): E66.01 - Morbid (severe) obesity due to excess calories (8) Anemia: Status: Chronic Code(s): D64.9 - Anemia, unspecified Qualifiers: Anemia type: iron deficiency Iron deficiency anemia type: unspecified iron deficiency Qualified Code(s): D50.9 - Iron deficiency anemia, unspecified (9) Atrial fibrillation with RVR: Status: Resolved Code(s): I48.91 - Unspecified atrial fibrillation (10) Acute on chronic systolic CHF (congestive heart failure): Status: Chronic Code(s): I50.23 - Acute on chronic systolic (congestive) heart failure Medications at Discharge Home Medications acetaminophen 325 mg tablet 650 mg PO BID PRN tab 07/05/19 calcium carb-magnesium carb 250 - 300 mg PO DAILY 07/05/19 cholecalciferol (vitamin D3) 125 mcg (5,000 unit) capsule 2,000 mcg PO DAILY 07/05/19 ferrous sulfate 325 mg PO DAILY 11/13/20 omega-3 fatty acids 1,000 mg PO DAILY 11/13/20 vitamin B complex [B Complex-Vitamin B12] 1 tab PO DAILY 11/13/20 metoprolol tartrate 25 mg PO BID 12/17/20 omeprazole 20 mg PO DAILY 12/17/20 warfarin 3 mg PO DAILY 12/17/20 diltiazem HCl 60 mg PO Q12 #60 cap 12/24/20 furosemide [Lasix] 80 mg PO BID #60 tab 12/24/20 prednisone 40 mg PO BREAKFAST 5 Days #0 tab 12/24/20 Hospital Course Operations None Procedures None Summary of Care Provided Minutes Spent on Discharge: 55 Hospital Course: 60-year-old female with multiple comorbidities, resident in a fpc who comes in with complaints of progressive shortness of breath and chest discomfort. Patient was admitted as acute on chronic combined respiratory failure/acute on chronic asthma exacerbation/acute on chronic systol ic CHF. Patient's admitting EKG as well as serial cardiac enzymes were unremarkable. She was started on IV Solu-Medrol for asthma exacerbation. With respiratory status worsening, IV fluids discontinued, pulmonology was consulted. She was transferred to ICU briefly on 12/18/20 for BiPAP. Patient had hypotension with use of IV Lasix. Nephrology was consulted, she was transitioned to Lasix drip. Patient continued to improve and was transferred to PCU on 12/20/20. Patient was kept on Lasix drip with good diuresis and improvement in her acute kidney injury. Her baseline creatinine which is 0.8-1.2. She was admitted with creatinine of 2.62. She had mild hyperkalemia for which she received Kayexalate insulin glucose and calcium gluconate on 12/19/20. Patient continued to diurese in skilled for discharge to intermediate facility. Peer-peer review was done for discharge but patient was denied skilled care on account of patient not being motivated to move because of body habitus. Discussed with patient at length, recommended bariatric surgery. She was discharged to long-term care. Physical Exam Narrative General: Alert, Oriented x3, Cooperative, No apparent distress, on 3L oxygen HEENT: Atraumatic, PERRLA, EOMI, Normocephalic Oral: Moist Mucosa Neck: Supple Lungs: Normal air movement, Diminished Cardiovascular: Regular rate, Regular Rhythm, Normal S1, Normal S2, No murmurs Abdomen: Bowel Sounds Present, Soft, Non Tender, Non-Distended, No Hepato- splenomegaly Extremities: bilteral leg edema +2 Medical Records Data Medical Nutrition Assessment Dietitian: Nutrition Therapy Diagnosis Start: 12/23/20 11:14 Freq: Status: Active Protocol: Document 12/23/20 11:14 RMA (Rec: 12/23/20 11:14 RMA [id number]) Nutrition Malnutrition Evidence of Malnutrition Exists No Clinical Problem Altered Nutrient-Related Laboratory Values Etiology related to renal dysfunction Signs/Symptoms as evidenced by BUN 91, Creat 2.76 Status Active Problem Unintended Weight Gain Status Inactive Problem Recommendation Dietitian Recommendations/Changes Continue 1999 calorie- controlled; cardiac; renal w/ low protein, low sodium, low potassium and 1500ml FR. ONS only if PO fails at meals- -will defer for now especially due to need to restrict protein/renal diet. Weight / BMI Weight Weight: 172.3 kg Body Mass Index (BMI) 76.6 ABG / Lab / Microbiology Data Result Diagrams: 12/22/20 05:35 12/24/20 05:51 Laboratory: Laboratory Results - last 24 hr 12/24/20 05:51: PT 19.7 H, INR 1.7 12/24/20 05:51: Sodium 139, Potassium 4.3, Chloride 98, Carbon Dioxide 36.0 H, BUN 93 H, Creatinine 2.60 H, Estim Creat Clear Calc 16.11, Est GFR (MDRD) Af Amer 24 L, Est GFR (MDRD) Non-Af 20 L, BUN/Creatinine Ratio 35.8 H, Glucose 151 H, Calcium 8.6, Phosphorus 4.5, Albumin 2.8 L Microbiology: Microbiology 12/21/20 09:10 Sputum, Expectorated/Coughed Gram Stain - Final 12/21/20 09:10 Sputum, Expectorated/Coughed Respiratory Culture - Final Staphylococcus aureus 12/19/20 22:30 Urine Catheter - Ya Urine Culture - Final Enterococcus faecalis 12/18/20 10:50 Mucosa - Nasopharyngeal SARS-CoV-2 Antigen (Rapid) - Final 12/18/20 08:30 Interface Orders Respiratory Panel (PCR) - Final Meaningful Use Info Meaningful Use Diagnoses (Choose all that apply): CHF CHF TORIBIO/ARB ordered at discharge?: No Reason TORIBIO/ARB not ordered?: Worsening renal dysfunctn Documented LVEF (%): 45 Discharge Plan Admission Admit Date/Time: 12/18/20 09:49 Primary Reason for Your Visit: Acute CHF Attending Provider: Tabitha Jarrett Primary Care Provider: Emily Husain Consulting Providers: Randolph Solano ; Jenny Baptiste Instructions Patient Instructions: ED Chest Pain, Noncardiac Additional Instructions / Restrictions: Patient Problems: Altered Health Status related to Hospitalization Patient Goals: *Optimal Level of Health *Keep Appointments *Medication Compliance *Remain Safe Discharge Orders/Prescriptions Prescriptions: New prednisone 20 mg Tablet 40 mg PO BREAKFAST 5 Days Qty: 0 RF: 0 diltiazem HCl 60 mg Capsule,Extended Release 12 Hr 60 mg PO Q12 Qty: 60 RF: 0 furosemide [Lasix] 80 mg tablet 80 mg PO BID Qty: 60 RF: 0 Continued cholecalciferol (vitamin D3) 125 mcg (5,000 unit) capsule 2,000 mcg PO DAILY RF: 0 calcium carb-magnesium carb 250 - 300 mg PO DAILY RF: 0 acetaminophen [Tylenol] 325 mg tablet 650 mg PO BID PRN (Reason: Pain 1-10 Or Fever) RF: 0 ferrous sulfate 325 MG tablet 325 mg PO DAILY RF: 0 vitamin B complex [B Complex-Vitamin B12] Tablet 1 tab PO DAILY RF: 0 omeprazole 20 mg Capsule,Delayed Release(Dr/Ec) 20 mg PO DAILY RF: 0 warfarin 5 mg tablet 3 mg PO DAILY RF: 0 metoprolol tartrate 50 mg tablet 25 mg PO BID RF: 0 Discontinued nystatin 1 APPLIC bottle 1 applic TOPICAL BID RF: 0 furosemide [Lasix] 40 mg Tablet 40 mg PO DAILY RF: 0 lisinopril 20 mg tablet 10 mg PO DAILY RF: 0 diltiazem HCl 120 mg capsule,extended release 24hr 120 mg PO DAILY Qty: 30 RF: 0 No Action omega-3 fatty acids Capsule 1,000 mg PO DAILY RF: 0 Referrals / Follow Up: Emily Husain MD [Primary Care Provider] - Within 2 Weeks Disposition Disposition (needs filled in before D/C Order can be placed): [facility] Charges/Coding Visit Charges Inpatient E&M: 75331 Disch Hosp
[2020-12-24] MEDS: Ferrous Sulfate 325 MG Tablet PO (14:03)
--- NOTE | 2020-12-24 14:32 | NURSING ---
Report given to Brynn Lowe. Relayed that we are trying to arrange for pick-up to facility at 1600.
--- NOTE | 2020-12-24 14:41 | CASEMGMT ---
Patient is ready for discharge. PHIL faxed orders to Annmarie with [facility]. PHIL arranged for patient to get picked up at 530 via bariatric cot. PHIL will notify patient and Annmarie with [facility]. PHIL notified RN. Plan: d/c back to [facility] under intermediate level of care. [facility] transported via bariatric cot. Sagrario Philip BUDDHIST MONK [facility]
--- NOTE | 2020-12-24 14:51 | RAD.NOTE ---
Called Brynn back at [facility]-- let her know that pt will be picked up from [facility] at 1730.
[2020-12-24] MEDS: Pantoprazole Sodium 20 MG Tablet PO (16:41)
[2020-12-24] MEDS: Jantoven 2 MG Tablet PO (16:41)
== END 2020-12-24 18:19 | disposition skilled nursing facility (03) | DRG 291 ==
LOC: ED 22:57 → PCU 23:14 → ICU 12-19 07:06 → PCU 12-20 12:26
PROVIDERS: Family Medicine; Internal Medicine Critical Care Medicine; Internal Medicine Nephrology; Nurse Practitioner Family; Admitting Provider Student in an Organized Health Care Education/Training Program; Emergency Provider Emergency Medicine; PCP Internal Medicine; Visit Provider Internal Medicine
DX: I13.0 Hypertensive heart and chronic kidney disease with heart failure and stage 1 through stage 4 chronic kidney disease, or unspecified chronic kidney disease (principal); J96.21 Acute and chronic respiratory failure with hypoxia; I50.23 Acute on chronic systolic (congestive) heart failure; J96.22 Acute and chronic respiratory failure with hypercapnia; Z68.45 Body mass index [BMI] 70 or greater, adult; N17.9 Acute kidney failure, unspecified; J45.901 Unspecified asthma with (acute) exacerbation; Z87.891 Personal history of nicotine dependence; R79.1 Abnormal coagulation profile; I95.9 Hypotension, unspecified; E66.01 Morbid (severe) obesity due to excess calories; E87.5 Hyperkalemia; Z99.81 Dependence on supplemental oxygen; G47.33 Obstructive sleep apnea (adult) (pediatric); I48.0 Paroxysmal atrial fibrillation; Z79.01 Long term (current) use of anticoagulants; N18.30 Chronic kidney disease, stage 3 unspecified; D50.9 Iron deficiency anemia, unspecified; D63.1 Anemia in chronic kidney disease; Z91.19 Patient's noncompliance with other medical treatment and regimen; E78.5 Hyperlipidemia, unspecified; K21.9 Gastro-esophageal reflux disease without esophagitis; I27.29 Other secondary pulmonary hypertension; Z86.711 Personal history of pulmonary embolism; Z86.718 Personal history of other venous thrombosis and embolism; R53.81 Other malaise
CPT/HCPCS: 36415; 36600; 71045; 76770; 80048; 80053; 80061; 80069; 81001; 82570; 82728; 82803; 83540; 83550; 83735; 83880; 83930; 83935; 84145; 84300; 84443; 84484; 85025; 85610; 87070; 87077; 87086; 87088; 87186; 87205; 87426; 87633; 93005; 94002; 94003; 94640; 94660; 97110; 97162; 97166; 97530; 97535; 97802; 97803; 99251; 99285; 99406; J7030; J7040; J7050; A4216; G0463; J0610; J1940; J2405; J2916

== ENCOUNTER 2021-01-05 12:48 | Emergency (ER) | payer MEDICARE, SELFPAY ==
[2020-12-18 00:03] VITALS: BMI 76.6
[2021-01-05] VITALS (12 sets, daily range): BP systolic 92–137; BP diastolic 56–95; PULSE 82–101; RESP 12–25; TEMP 36.4–36.6; O2SAT 91–100; BMI 72.4
--- NOTE | 2021-01-05 13:14 | RAD_ITS ---
STUDY: X-RAY CHEST REASON FOR EXAM: Female, 60 years old. chest pain TECHNIQUE: Single AP portable view of the chest. COMPARISON: 12/17/2020 FINDINGS: Poor inspiration with some bibasilar atelectasis There is no demonstrated pleural abnormality. There is moderate cardiac enlargement. Normal mediastinum and anay. Normal visualized pulmonary arteries. Normal visualized aortic arch and descending thoracic aorta. Normal visualized thoracic spine. Normal visualized ribs, clavicles, and shoulders. There is no demonstrated abnormality of the visualized soft tissue structures of the upper abdomen. RAD/Chest 1 View (Portable) IMPRESSION: Poor inspiration with some bibasilar atelectasis. Electronically Signed: Boris Lorenzo MD at 14:45 EDT Tel , Service support ,
--- NOTE | 2021-01-05 13:15 | EDS_ITS ---
HPI History of Present Illness Chief Complaint: Shortness of Breath Informant: patient, EMS and SNF Onset/Context/Timing Onset: Today Context: gradual Timing: Continuous Current Severity: Mild Maximum Severity: Mild Narrative Narrative: 60-year-old extended care facility patient with a history of A. fib, CHF and prior PE and DVT on Coumadin. Patient's had recent hospitalization for A. fib in November and CHF in December. longterm states she has not been very compliant with her BiPAP or her fluid restriction status. They have also recently decreased her Lasix from 80 a day to 40 a day. States she is complaining of shortness of breath. Patient denies chest pain. She denies hemoptysis. She denies fever. PE Risk Factors: Positive for Prior DVT or PE and Recent immobilization Prior similar symptoms: Yes Recent Illness/Hospitalization: Yes [facility]SH [facility] Medical History Arthritis Atrial fibrillation Blood clot in vein Carpal tunnel syndrome Chronic pain Congestive heart failure (CHF) Depression DVT (deep venous thrombosis) Former smoker GERD (gastroesophageal reflux disease) History of left heart catheterization (LHC) (~07/20/20) Hyperkalemia Obesity Pulmonary embolism Home Medications acetaminophen 325 mg tablet 650 mg PO BID PRN tab 07/05/19 [History Last Taken Unknown] calcium carb-magnesium carb 250 - 300 mg PO DAILY 07/05/19 [History Last Taken Unknown] cholecalciferol (vitamin D3) 125 mcg (5,000 unit) capsule 5,000 mcg PO DAILY 07/05/19 [History Last Taken 07/17/20] ferrous sulfate 325 mg PO DAILY 11/13/20 [History Last Taken Unknown] vitamin B complex [B Complex-Vitamin B12] 1 tab PO DAILY 11/13/20 [History Last Taken Unknown] metoprolol tartrate 25 mg PO BID 12/17/20 [History Last Taken Unknown] omeprazole 20 mg PO DAILY 12/17/20 [History Last Taken Unknown] warfarin 3 mg PO SUMOWETHFRSA 12/17/20 [History Last Taken Unknown] diltiazem HCl 60 mg PO Q12 #60 cap 12/24/20 [Rx Last Taken Unknown] albuterol sulfate 2.5 mg INHALATION Q6H PRN 01/05/21 [History Last Taken Unknown] furosemide [Lasix] 40 mg PO DAILY 01/05/21 [History Last Taken Unknown] lorazepam 0.5 mg PO DAILY PRN 01/05/21 [History Last Taken Unknown] magnesium hydroxide [Milk of Magnesia] 400 mg PO DAILY PRN 01/05/21 [History Last Taken Unknown] warfarin 4 mg TU 01/05/21 [History Last Taken Unknown] Allergy/AdvReac Type Severity Reaction Status Date / Time enoxaparin [From Lovenox] Allergy Severe Rash & Verified 12/17/20 20:02 Itching peach Allergy Severe Other Verified 12/17/20 20:02 green tea Allergy Intermediate Itching Verified 12/17/20 20:02 Family History Mother Diabetes High cholesterol Father Diabetes Heart disease Hypertension Sister Diabetes High cholesterol Brother Diabetes Surgical History History of cholecystectomy History of oral surgery Social History Smoking Status: Former smoker alcohol intake: never substance use type: does not use what type of physical activity do you participate in: none ROS ROS ED ROS Narrative Patient denies symptoms of shortness of breath. She denies fever or chills. Review of Systems ROS Unobtainable: Denies due to encephalopathy Constitutional Constitutional ED: Denies chills or fever(s) Eyes Eyes: Denies change in vision ENT ENT ED: Denies ear pain or sore throat Cardiovascular Cardiovascular: Denies chest pain Respiratory/Chest Respiratory/Chest: Reports dyspnea; Denies cough Gastrointestinal Gastrointestinal: Denies abdominal pain, diarrhea, nausea or vomiting Genitourinary Genitourinary ED: Denies dysuria Musculoskeletal Musculoskeletal: Denies myalgias Integumentary Denies rash Neurologic Neurologic: Denies headache(s) Psychiatric Psychiatric: Denies depression Endocrine Endocrinology: Denies polyuria Hematologic/Lymphatic Hematologic/Lymphatic: Denies easy bruising Allergic/Immunologic Allergic/Immunologic ED: Denies urticaria EXAM Physical Exam Narrative Exam Narrative: Older female no acute distress. Vital signs are stable. Pulse ox 93% on 2 L. No hypoxia on oxygen. H EENT exam unremarkable. Moist mucous membranes. Neck nontender no JVD. Lungs diminished breath sounds in the bases. Heart irregularly irregular rate about 90. Abdomen is obese but soft nontender normal bowel sounds no peritoneal signs. Patient moving all 4 extremities. Chronic edema both lower extremities. Neurologically she is awake and alert. Answering questions and following commands. Const Vital Signs: 01/05/21 12:49 01/05/21 12:55 01/05/21 13:09 Temperature 97.8 F 97.8 F Temperature Source Temporal Temporal Pulse Rate 91 91 Respiratory Rate 20 H 20 H Respiratory Pattern Tachypnea Blood Pressure 137/95 H 137/95 H Blood Pressure Mean 109 109 Pulse Ox 93 93 Oxygen Delivery Method Nasal Cannula Nasal Cannula Nasal Cannula Oxygen Flow Rate (L/min) 2 2 3 Fraction of Inspired Oxygen (FIO2) 01/05/21 13:15 01/05/21 13:55 01/05/21 14:09 Temperature 97.5 F L Temperature Source Temporal Pulse Rate 100 101 H Respiratory Rate 22 H 25 H Respiratory Pattern Tachypnea Blood Pressure 96/69 Blood Pressure Mean 78 Pulse Ox 95 91 97 Oxygen Delivery Method Nasal Cannula Nasal Cannula Oxygen Flow Rate (L/min) 3 4 Fraction of Inspired Oxygen (FIO2) 40 HEENT Reports moist mucous membranes atraumatic; Negative for trauma Eyes PERRL and EOMs intact bilaterally Neck no lymphadenopathy, supple, no meningeal signs and No no JVD General: Negative for tenderness Resp normal respiratory effort and clear to auscultation bilaterally Cardio Cardio Narrative: A. fib rate about 62. GI non-tender, non-distended and no masses Auscultation: normoactive bowel sounds Palpation: soft; Negative for tender, guarding or rebound tenderness present Extremity Extremity Narrative: Bilateral lower extremity edema. General Extremety ED: Yes edema General Extremity: edema Neuro oriented x3 Sensorium / Orientation: alert, oriented to person, oriented to place and oriented to time; Negative for confused, lethargic or stuporous Motor Exam: strength 5/5 throughout Psych mental status grossly normal Skin Lesions: no lesions Rashes: no rashes MDM MDM MDM Narrative Medical decision making narrative: 60[facility] with increasing shortness of breath and a history of CHF. Most likely CHF exacerbation. She is a known DVT and prior PE on Coumadin. She undergo cardiac work-up will also evaluate her INR along with a COVID-19 test. Repeat exam patient is doing well on BiPAP. I think they keep her [facility] the [facility] and continue her Lasix at 40 twice a day or possibly even increasing that she is okay to be discharged back to the [facility]. Some this seems to be an issue with noncompliance. I spoke with the KIT Stacie at [facility]. She knows the patient well. The patient was i nitially discharged the Lasix was accidentally stopped. Is been restarted and are going to increase it. She denies discussed the patient's care they are agreeable that she come [facility] the [facility]. They will continue Lasix. Hold her Coumadin for the next 2 days recheck her INR in 2 days. And restart the Coumadin when appropriate. But also make sure she is on her oxygen at the [facility] and using her BiPAP as intended. Lab Data Attestation: I reviewed the patient's lab results. Lab results narrative: CBC showed a white count 9. Hemoglobin 9.8 which is the patient's baseline. Patient is on Coumadin INR elevated at 4.3. Anion gap is - 2. Creatinine 1. Glucose 141. High-sensitivity troponin 26. BNP elevated at 498. Labs: Laboratory Results - last 24 hr 01/05/21 01/05/21 01/05/21 13:55 13:55 13:55 WBC 9.6 RBC 4.24 Hgb 9.8 L Hct 36.5 L MCV 86.1 MCH 23.1 L MCHC 26.8 L RDW Std Deviation 94.6 H RDW Coeff of Claudia 29.9 H Plt Count 145 L Immature Gran % (Auto) 0.400 Neut % (Auto) 89.3 H Lymph % (Auto) 3.5 L [place] % (Auto) 5.7 Eos % (Auto) 1.0 Baso % (Auto) 0.1 Absolute Neuts (auto) 8.6 H Absolute Lymphs (auto) 0.34 L Nucleated RBC % 0.4 Differential Comment COMMENT Anisocytosis 1+ PT 40.3 H INR 4.3 H* Sodium 139 Potassium 3.8 Chloride 99 Carbon Dioxide 42.0 H Anion Gap -2 L BUN 38 H Creatinine 1.07 H Estim Creat Clear Calc 39.16 Est GFR (MDRD) Af Amer 67 Est GFR (MDRD) Non-Af 55 L BUN/Creatinine Ratio 35.5 H Glucose 141 H Calcium 9.1 Troponin I High Sens 26.3 B-Natriuretic Peptide 01/05/21 13:55 WBC RBC Hgb Hct MCV MCH MCHC RDW Std Deviation RDW Coeff of Claudia Plt Count Immature Gran % (Auto) Neut % (Auto) Lymph % (Auto) [place] % (Auto) Eos % (Auto) Baso % (Auto) Absolute Neuts (auto) Absolute Lymphs (auto) Nucleated RBC % Differential Comment Anisocytosis PT INR Sodium Potassium Chloride Carbon Dioxide Anion Gap BUN Creatinine Estim Creat Clear Calc Est GFR (MDRD) Af Amer Est GFR (MDRD) Non-Af BUN/Creatinine Ratio Glucose Calcium Troponin I High Sens B-Natriuretic Peptide 498.0 H Radiography Chest X-Ray - ED: 1 View, Read by ED Physician, Read by Radiologist, Heart, Lungs, Mediastinum, Bony Structures and No Acute Disease Diagnostic Testing: Radiology Impression Chest X-Ray 01/05/21 13:14 IMPRESSION: Poor inspiration with some bibasilar atelectasis. Electronically Signed: Boris Lorenzo MD at 14:45 EDT Tel , Service support , Rhythm Strip Rhythm Strip: A-fib Rate: 97 Ectopy: None EKG Initial EKG: Attestation: I personally reviewed and interpreted this EKG as follows: Interpretation: No Acute Injury Pattern and Atrial Fibrillation Comments: A. fib rate of 97 no acute signs of OH nor ischemia. Discharge Plan Triage Chief Complaint: Shortness of Breath ED Provider: Oneal Kwan Dx/Rx/DC Orders Clinical Impression: CHF (congestive heart failure) Instructions: Heart Failure Prescriptions: No Action cholecalciferol (vitamin D3) 125 mcg (5,000 unit) capsule 5,000 mcg PO DAILY RF: 0 calcium carb-magnesium carb 250 - 300 mg PO DAILY RF: 0 acetaminophen [Tylenol] 325 mg tablet 650 mg PO BID PRN (Reason: Pain 1-10 Or Fever) RF: 0 ferrous sulfate 325 MG tablet 325 mg PO DAILY RF: 0 vitamin B complex [B Complex-Vitamin B12] Tablet 1 tab PO DAILY RF: 0 omeprazole 20 mg Capsule,Delayed Release(Dr/Ec) 20 mg PO DAILY RF: 0 warfarin 5 mg tablet 3 mg PO SUMOWE RF: 0 metoprolol tartrate 50 mg tablet 25 mg PO BID RF: 0 diltiazem HCl 60 mg Capsule,Extended Release 12 Hr 60 mg PO Q12 Qty: 60 RF: 0 warfarin 4 mg Tablet 4 mg TU RF: 0 lorazepam 0.5 mg Tablet 0.5 mg PO DAILY PRN (Reason: Anxiety) RF: 0 magnesium hydroxide [Milk of Magnesia] 400 mg/5 mL Suspension 400 mg PO DAILY PRN (Reason: Constipation) RF: 0 albuterol sulfate 2.5 mg/0.5 mL Solution For Nebulization 2.5 mg INHALATION Q6H PRN (Reason: Shortness Of Breath) RF: 0 furosemide [Lasix] 80 mg tablet 40 mg PO DAILY RF: 0 Primary Care Provider: Emily Husain Referrals: Emily Husain MD [Primary Care Provider] - 3-5 Days Activity Restrictions/Additional Instructions: Make sure she is back on her Lasix of at least 40 mg twice a day and that may need to be increased as needed. Her INR today was 4.3 that is too high. Hold her Coumadin the next 2 days and recheck her INR before you restart it. Make sure she is using her oxygen and BiPAP as [facility]. Follow-up with her doctor or the [facility] medical record retrieval specialist in the next 3 days. Return to emergency department if worse. Disposition Disposition: Home, Self Care
--- NOTE | 2021-01-05 13:15 | EKG12_ITS ---
Test Reason : SOB Blood Pressure : / mmHG Vent. Rate : 097 BPM Atrial Rate : 098 BPM P-R Int : 000 ms QRS Dur : 104 ms QT Int : 302 ms P-R-T Axes : 000 086 -68 degrees QTc Int : 383 ms Atrial fibrillation Nonspecific T wave abnormality Abnormal ECG Confirmed by SIDNEY STEWART, JUAN ([id number]), assignment editor BENJI TONG ([id number]) on 01/11/2021 9:26:23 AM Referred By: PARTHA Confirmed By:JUAN LITTLE MD
[2021-01-05 14:03] LABS: Absolute Lymphocyte Count 0.34 X10^3/uL (0.83-4.51); Absolute Neutrophil Count 8.6 X10^3/uL (2.0-7.7); Basophil# 0.01 X10^3/uL; Basophil% 0.1 % (0-1); Hematocrit 36.5 % (37-47); Hemoglobin 9.8 g/dL (12.0-15.0); Lymphocyte # 0.34 X10^3/ul (0.83-4.51); Lymphocyte % 3.5 % (19-41); Mean Corp Hgb Conc 26.8 g/dL (32-36); Mean Corpuscular Hgb 23.1 pg (27.0-32.0); Mean Corpuscular Volume 86.1 fL (81-99); Monocyte# 0.55 X10^3/uL; Monocyte% 5.7 % (0-10); NRBC Flagged by Analyzer 0.4 % (0-5); Neutrophil % 89.3 % (47-70); POSITIVE DIFFERENTIAL YES; POSITIVE MORPHOLOGY YES; Platelet Count 145 K/mm3 (150-450); RBC Distribution Width CV 29.9 % (11.6-14.6); RBC Distribution Width SD 94.6 fl (35.1-43.9); Red Blood Count 4.24 M/mm3 (4.2-5.4); White Blood Count 9.6 K/mm3 (4.4-11.0)
[2021-01-05 14:04] LABS: Differential Indicated SCAN CRITERIA MET
--- NOTE | 2021-01-05 14:09 | ED.RN ---
increase in work of breathing noted for patient, decreasing pulse ox. Dr Kwan notified. increased NC to 4L. Verbal order from Dr Kwan to call respirtory for Bipap.
[2021-01-05 14:10] LABS: International Normalized Ratio 4.3; Prothrombin Time (Protime)PT. 40.3 SECONDS (11.7-14.9)
[2021-01-05 14:20] LABS: Anion Gap -2 (5-15); BUN 38 mg/dL (7-18); BUN/Creat Ratio 35.5 RATIO (10-20); Calcium,Total 9.1 mg/dL (8.5-10.1); Chloride 99 mmol/L (98-107); Creatinine, Serum 1.07 mg/dL (0.55-1.02); EST Glomerular Filtration Rate 55 mL/min (>60); Est Glom Filt Rate - Afr Amer 67 mL/min (>60); Estimated Creatinine Clearance 39.16 ml/min; Glucose 141 mg/dL (74-106); Potassium 3.8 mmol/L (3.5-5.1); Sodium Level 139 mmol/L (136-145); Troponin-I HS 26.3 pg/mL (3.0-53.7)
[2021-01-05 14:26] LABS: Anisocytosis 1+
--- NOTE | 2021-01-05 15:31 | NURSING ---
CALLED [facility], ETA IS 60 MIN
--- NOTE | 2021-01-05 15:43 | ED.RN ---
Report called to [facility], spoke with nurse Escobedo. Nurse notified of new orders including increasing lasix, holding coumadin due to INR being 4.3, and encouraging the use of her bipap. Told that these would be on discharge paperwork and be sent back with patient.
[2021-01-05] MEDS: Furosemide 100 MG/10 ML Vial 40 MG IV (15:52)
== END 2021-01-05 16:50 | disposition home or self-care (01) ==
PROVIDERS: Emergency Provider Emergency Medicine; PCP Internal Medicine
DX: I50.9 Heart failure, unspecified (principal); I48.91 Unspecified atrial fibrillation; M19.90 Unspecified osteoarthritis, unspecified site; F32.9 Major depressive disorder, single episode, unspecified; K21.9 Gastro-esophageal reflux disease without esophagitis; E66.9 Obesity, unspecified; Z86.718 Personal history of other venous thrombosis and embolism; Z86.711 Personal history of pulmonary embolism; Z79.01 Long term (current) use of anticoagulants; Z79.899 Other long term (current) drug therapy; Z87.891 Personal history of nicotine dependence; Z91.19 Patient's noncompliance with other medical treatment and regimen
CPT/HCPCS: 71045; 80048; 83880; 84484; 85025; 85610; 87426; 93005; 94002; 96374; 99285; A4216; J1940

== ENCOUNTER 2021-01-05 18:58 | Emergency (ER) | payer MEDICARE, SELFPAY ==
[2021-01-05] VITALS (9 sets, daily range): BP systolic 94–111; BP diastolic 63–75; PULSE 86–117; RESP 12–27; TEMP 36.8; O2SAT 91–100; BMI 72.4; BMI 72.2
--- NOTE | 2021-01-05 19:06 | EX.ED.DYSGE1 ---
HPI History of Present Illness Chief Complaint: General Illness Narrative Narrative: Patient presenting via EMS from [facility] for chief complaint of dyspnea. Patient states this is a chronic issue. She has a history of CHF, anemia, acute on chronic respiratory failure, hypertension. Patient was seen earlier today and had a work-up and was sent home on BiPAP. Apparently her Lasix had been accidentally discontinued. Patient states she wears 3 L of oxygen at baseline and wears BiPAP at night. Patient was discharged home on BiPAP to the half-way. They stated that her lips look a little bit lower than usual and were having difficulty getting a pulse ox read on her and sent her back to the emergency room. She denies any new complaints from earlier. She is awake and mentating. She denies any pain, nausea, vomiting. She denies fever. She has a slight cough. [facility] Medical History Arthritis Atrial fibrillation Blood clot in vein Carpal tunnel syndrome Chronic pain Congestive heart failure (CHF) Depression DVT (deep venous thrombosis) Former smoker GERD (gastroesophageal reflux disease) History of left heart catheterization (LHC) (~07/20/20) Hyperkalemia Obesity Pulmonary embolism Home Medications acetaminophen 325 mg tablet 650 mg PO BID PRN tab 07/05/19 [History Last Taken Unknown] calcium carb-magnesium carb 250 - 300 mg PO DAILY 07/05/19 [History Last Taken Unknown] cholecalciferol (vitamin D3) 125 mcg (5,000 unit) capsule 5,000 mcg PO DAILY 07/05/19 [History Last Taken 07/17/20] ferrous sulfate 325 mg PO DAILY 11/13/20 [History Last Taken Unknown] vitamin B complex [B Complex-Vitamin B12] 1 tab PO DAILY 11/13/20 [History Last Taken Unknown] metoprolol tartrate 25 mg PO BID 12/17/20 [History Last Taken Unknown] omeprazole 20 mg PO DAILY 12/17/20 [History Last Taken Unknown] warfarin 3 mg PO SUMOWETHFRSA 12/17/20 [History Last Taken Unknown] diltiazem HCl 60 mg PO Q12 #60 cap 12/24/20 [Rx Last Taken Unknown] albuterol sulfate 2.5 mg INHALATION Q6H PRN 01/05/21 [History Last Taken Unknown] furosemide [Lasix] 40 mg PO DAILY 01/05/21 [History Last Taken Unknown] lorazepam 0.5 mg PO DAILY PRN 01/05/21 [History Last Taken Unknown] magnesium hydroxide [Milk of Magnesia] 400 mg PO DAILY PRN 01/05/21 [History Last Taken Unknown] warfarin 4 mg TU 01/05/21 [History Last Taken Unknown] Allergy/AdvReac Type Severity Reaction Status Date / Time enoxaparin [From Lovenox] Allergy Severe Rash & Verified 12/17/20 20:02 Itching peach Allergy Severe Other Verified 12/17/20 20:02 green tea Allergy Intermediate Itching Verified 12/17/20 20:02 Family History Mother Diabetes High cholesterol Father Diabetes Heart disease Hypertension Sister Diabetes High cholesterol Brother Diabetes Surgical History History of cholecystectomy History of oral surgery Social History Smoking Status: Former smoker alcohol intake: never substance use type: does not use what type of physical activity do you participate in: none ROS ROS ED Review of Systems ROS Unobtainable: due to encephalopathy Constitutional Constitutional ED: Denies chills or fever(s) Eyes Eyes: Denies blurry vision or diplopia ENT ENT ED: Denies rhinorrhea or sore throat Cardiovascular Cardiovascular: Reports orthopnea; Denies chest pain or palpitations Respiratory/Chest Respiratory/Chest: Reports cough, dyspnea and orthopnea Gastrointestinal Gastrointestinal: Denies abdominal pain, nausea or vomiting Genitourinary Genitourinary ED: Denies dysuria or hematuria Musculoskeletal Musculoskeletal: Denies arthralgias or myalgias Integumentary Denies abscess or rash Neurologic Neurologic: Denies headache(s) or paresthesias EXAM Physical Exam Const Vital Signs: 01/05/21 19:00 01/05/21 19:04 01/05/21 19:26 Temperature 98.3 F 98.3 F Temperature Source Temporal Temporal Pulse Rate 117 H 106 H Respiratory Rate 22 H 25 H Respiratory Effort Short of Breath Respiratory Depth Shallow Respiratory Pattern Tachypnea Blood Pressure 104/64 104/64 Blood Pressure Mean 77 77 Pulse Ox 100 100 Oxygen Delivery Method Non-Rebreather Non-Rebreather Non-Rebreather Oxygen Flow Rate (L/min) 15 15 15 Fraction of Inspired Oxygen (FIO2) 01/05/21 19:35 01/05/21 20:00 01/05/21 20:20 Temperature Temperature Source Pulse Rate 108 H 101 H Respiratory Rate 27 H 20 H Respiratory Effort Respiratory Depth Respiratory Pattern Blood Pressure 94/75 Blood Pressure Mean 81 Pulse Ox 95 95 Oxygen Delivery Method Bi-pap Oxygen Flow Rate (L/min) Fraction of Inspired Oxygen (FIO2) 35 35 45 Positive obese General Appearance ED: NAD Nutritional Appearance: obese HEENT Reports moist mucous membranes Negative for trauma Eyes PERRL and EOMs intact bilaterally Resp normal respiratory effort and clear to auscultation bilaterally Cardio Rate: tachycardic Rhythm: abnormal rhythm irregularly irregular Extremity General Extremety ED: Yes edema; Negative for tenderness General Extremity: edema Neuro oriented x3 and CN's II-XII intact bilaterally Sensorium / Orientation: alert Psych mental status grossly normal Skin no rashes or lesions noted MDM MDM MDM Narrative Medical decision making narrative: Patient presenting from [facility] for evaluation as she was just seen here earlier and discharged home on BiPAP however the nursing staff felt that her lips were a little bit blue where they were having trouble getting a pulse ox read on her. Her BiPAP was discontinued and she was placed on 15 L nonrebreather in transport. On my initial evaluation I was able to get a pulse ox of 100% on this however it is difficult to get a steady read on her pulse oximetry. Patient already had a chest x-ray today which was interpreted as bibasilar atelectasis. Her BNP was elevated at nearly 500. Troponin was 26.3, creatinine was 1.07 and actually improved. INR supratherapeutic at 4.3 and the plan was to hold Coumadin for 2 days. Hemoglobin is at baseline 9.8 and is actually improved. The ED physician that saw her earlier did speak with the nurse billing control clerk who knew her and was going to restart her Lasix as well as monitor her. 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 Repeat EKG on arrival shows atrial fibrillation at a rate of 119 bpm with PVCs on my interpretation. Obtain a troponin to see if there is interval change. Patient is denying any chest pain or new symptoms currently. Patient is supratherapeutic on her INR so I feel PE is less likely to be causing the acute worsening although she does have a history of DVT/PE. Patient's troponin is 25.1 which is actually lower than her previous. She does have a blood gas which shows she is hypercapnic with a PCO2 of 70, bicarb 30.7, pH 7.350. Patient's EKG showed atrial fibrillation at a rate of 119 bpm but after monitoring on BiPAP she is about 100 bpm. Patient's previous lab work was reviewed as dictated above. Discussed with Dr. Jones who is on-call for Dr. Torres at the half-way. Since the patient was going to be started back on Lasix and is going to be on BiPAP anyway he did not believe the patient need to be admitted to the hospital. She will be sent back to [place] and will be monitoring. I did also discuss with him that her INR was supratherapeutic and this will need to be monitored as well. Patient is amenable to this plan. Patient stable for discharge at this time. Impression: 1. CHF exacerbation Lab Data Labs: Laboratory Results - last 24 hr 01/05/21 19:30 Troponin I High Sens 25.1 ABG Data ABG results: ABG 01/05/21 20:15 Specimen Type ART Sample Site L Radial pH 7.35 Bicarbonate Actual 38.7 H Total CO2 41 Base Excess 13 H O2 Saturation 90 L O2 % 35 ABG pCO2 70.1 H* ABG pO2 65 L Gerber Test Positive O2 Delivery Device BiPAP Crit Call To/Read Back Yes Blood Gas Notified Whom alhaji Clinical Comments bipap 16 Discharge Plan Triage Chief Complaint: General Illness ED Provider: David Austin Dx/Rx/DC Orders Prescriptions: No Action cholecalciferol (vitamin D3) 125 mcg (5,000 unit) capsule 5,000 mcg PO DAILY RF: 0 calcium carb-magnesium carb 250 - 300 mg PO DAILY RF: 0 acetaminophen [Tylenol] 325 mg tablet 650 mg PO BID PRN (Reason: Pain 1-10 Or Fever) RF: 0 ferrous sulfate 325 MG tablet 325 mg PO DAILY RF: 0 vitamin B complex [B Complex-Vitamin B12] Tablet 1 tab PO DAILY RF: 0 omeprazole 20 mg Capsule,Delayed Release(Dr/Ec) 20 mg PO DAILY RF: 0 warfarin 5 mg tablet 3 mg PO SUMOWETHFRSA RF: 0 metoprolol tartrate 50 mg tablet 25 mg PO BID RF: 0 diltiazem HCl 60 mg Capsule,Extended Release 12 Hr 60 mg PO Q12 Qty: 60 RF: 0 warfarin 4 mg Tablet 4 mg TU RF: 0 lorazepam 0.5 mg Tablet 0.5 mg PO DAILY PRN (Reason: Anxiety) RF: 0 magnesium hydroxide [Milk of Magnesia] 400 mg/5 mL Suspension 400 mg PO DAILY PRN (Reason: Constipation) RF: 0 albuterol sulfate 2.5 mg/0.5 mL Solution For Nebulization 2.5 mg INHALATION Q6H PRN (Reason: Shortness Of Breath) RF: 0 furosemide [Lasix] 80 mg tablet 40 mg PO DAILY RF: 0 Primary Care Provider: Emily Husain Referrals: Emily Husain MD [Primary Care Provider] - Disposition Disposition: [facility] Discharge Location: [facility]
--- NOTE | 2021-01-05 19:16 | EKG12_ITS ---
Test Reason : GEN ILL Blood Pressure : / mmHG Vent. Rate : 119 BPM Atrial Rate : 105 BPM P-R Int : 000 ms QRS Dur : 106 ms QT Int : 278 ms P-R-T Axes : 000 091 -54 degrees QTc Int : 391 ms Atrial fibrillation with premature ventricular or aberrantly conducted complexes Possible Right ventricular hypertrophy with repolarization abnormality Nonspecific T wave abnormality Abnormal ECG Confirmed by SIDNEY STEWART, JUAN ([id number]), editor managing newspaper BENJI TONG ([id number]) on 01/11/2021 9:28:33 AM Referred By: MILVIA Confirmed By:JUAN LITTLE MD
--- NOTE | 2021-01-05 20:26 | CPS ---
increased fio2 to 45% after abg's handed to er
[2021-01-05 20:36] LABS: Troponin-I HS 25.1 pg/mL (3.0-53.7)
[2021-01-05 20:51] LABS: Allen Test Positive; Base Excess 13 mmol/L (-2 to +2); Bicarbonate 38.7 mmol/L (22-26); Blood Gas Specimen Type ART; FI02 35; O2 Delivery Device BiPAP; PO2 65 mmHG (75-100); SITE L Radial; SO2 90 % (95-99); Total Carbon Dioxide 41 mmol/L; pCO2 70.1 mmHg (35-45); pH 7.35 (7.35-7.45)
--- NOTE | 2021-01-05 21:09 | ED.RN ---
Called report to the intermediate, updated that patient was being discharged back to them. nurse Merida agrees to plan.
--- NOTE | 2021-01-05 21:26 | ED.RN ---
After talking with patient, she tells me the nurses at the assisted were not able to get her bipap working properly when she went back to them after being discharged from here. Pt states they eventually placed her on nasal canula oxygen but told her she was turning blue and needed to return to ER. Pt states i feel fine, i dont know why im back here. This RN calls nurse Magnolia again at [facility] and inquires if they are having trouble with the patients bipap- this RN tells her what patient says. Magnolia states she does not know how to use the bipap stating they come to us preset and we dont mess with them Magnolia is unable to see what settings the bipap is on and unable to change the settings. This nurse explains that it is not safe for the patient to go back to [facility] if they cannot operate her bipap and ensure she is on the correct level of oxygen but it is not appropriate for the patient to be admitted soley due to the fact the assisted staff is unable to work their equipment. This RN asks for the [facility] to be contacted to try to figure something out. waitng to here back from [facility] staff.
--- NOTE | 2021-01-05 22:34 | CM.ED ---
PHIL was advised by Hospitalist Luiza that patient was in the ED earlier today and was discharged back to the [facility], [facility], and then sent back because she destated. She said that the [facility] staff did not appear to know how to use the bipap. PHIL called [facility] and spoke to Magnolia. She said that the bipap is set for 35 and she has no ability to increase it to 45. Magnolia said that there was an USB in back and she is unsure how to use it. Magnolia said that the DON was supposed to call Maxim at [facility] and speak to her regarding the settings. Magnolia said that they use [employer] for their bipaps. PHIL explained that other DME providers work on emergency basis . PHIL asked if the social insurance administrator could be called so we can problem solve the situation and Magnolia said we don't usually call her. PHIL asked Magnolia to call [employer] and update this global technical writer. PHIL received call from Leia Madison ([phone]) and she said that patient has been refusing the bipap and from speaking to the RN the bipap is not functioning. Leia said that she could have a new bipap for patient tomorrow morning. Leia said that Magnolia is calling [employer] now. PHIL advised that KALI has not called Maxim as of this time. Leia said they told me to call the RN and then to call you so they said to call you first as you called last. PHIL updated the hospitalist Luiza. PHIL indicated that [facility] staff is contacting [employer] and the latest the new bipap should be here is tomorrow morning. PHIL indicated that patient is sleeping and managing well in the ED. PHIL called Leia Madison and advised her that this global technical writer is leaving.Leia said that Magnolia from [facility] got in contact with [employer] and they have an emergency cone treatersalesperson books that she is getting in touch with now. PHIL said that this global technical writer is leaving and that Magnolia from [facility] can follow up with Maxim from the ED. Leia requested that this global technical writer call and update Magnolia at [facility] and this global technical writer agreed. PHIL called [facility] and spoke to Magnolia. PHIL advised this global technical writer is going home and that Magnolia needs to follow up with Maxim in the ED and provided her with the ED charge nurse number. PHIL updated MD Cameron and Maxim and supervisor dry cleaning. PHIL updated hospitalist Luiza. Plan: [facility] is locating an appropriate bipap for patient to support her respiratory needs.. When the bipap is located patient will safely return to [facility].
--- NOTE | 2021-01-05 23:09 | ED.RN ---
Magnolia nurse from [place] calls at this stating the michael from [employer] will be here in a hour and a half then states she will call us when he's there and everything is set up for us to call for transport.
[2021-01-06] VITALS: BP 97/60; PULSE 102; RESP 17; O2SAT 98
[2021-01-06 00:34] VITALS: PULSE 92; RESP 12; RESP 18; O2SAT 95
--- NOTE | 2021-01-06 01:27 | ED.RN ---
spoke with kathy from [place] service rep is on scene at this time. called to arrange transport eta 45- 60 mins
[2021-01-06 01:34] VITALS: BP 136/89; PULSE 115; RESP 19; O2SAT 95
[2021-01-06 03:06] VITALS: BP 117/86; PULSE 96; RESP 17
[2021-01-06 03:30] VITALS: PULSE 109; RESP 12; RESP 17; O2SAT 100
[2021-01-06 03:39] VITALS: BP 117/89; PULSE 107; RESP 20; O2SAT 98
== END 2021-01-06 03:59 | disposition skilled nursing facility (03) ==
PROVIDERS: Emergency Provider Student in an Organized Health Care Education/Training Program; PCP Internal Medicine
DX: I11.0 Hypertensive heart disease with heart failure (principal); I50.9 Heart failure, unspecified; J96.20 Acute and chronic respiratory failure, unspecified whether with hypoxia or hypercapnia; I48.91 Unspecified atrial fibrillation; M19.90 Unspecified osteoarthritis, unspecified site; F32.9 Major depressive disorder, single episode, unspecified; K21.9 Gastro-esophageal reflux disease without esophagitis; E66.9 Obesity, unspecified; Z91.19 Patient's noncompliance with other medical treatment and regimen; Z99.81 Dependence on supplemental oxygen; Z86.718 Personal history of other venous thrombosis and embolism; Z86.711 Personal history of pulmonary embolism; Z79.01 Long term (current) use of anticoagulants; Z79.899 Other long term (current) drug therapy; Z87.891 Personal history of nicotine dependence
CPT/HCPCS: 36600; 71045; 80048; 82803; 83880; 84484; 85025; 85610; 87426; 93005; 94002; 94003; 99285; A4216; J1940

== ENCOUNTER 2021-01-24 10:33 | Inpatient (IN) | payer MEDICARE, MEDICAID, SELFPAY ==
[2021-01-24] VITALS (15 sets, daily range): BP systolic 92–109; BP diastolic 60–80; PULSE 91–105; RESP 12–28; TEMP 36.6–36.9; O2SAT 88–100; BMI 69.5; BMI 66.8
--- NOTE | 2021-01-24 10:51 | RAD_ITS ---
STUDY: X-RAY CHEST REASON FOR EXAM: Female, 60 years old. Dyspnea. TECHNIQUE: Single AP portable view of the chest. COMPARISON: 01/05/2021. FINDINGS: Limited inspiratory effort. There there are now bilateral pleural effusions not previously appreciated. This is most marked on the right. There is no demonstrated pleural abnormality. Stable cardiomegaly. Normal mediastinum and anay. Normal visualized pulmonary arteries. There is atherosclerotic calcification of the aortic arch with tortuosity. There are diffuse degenerative changes of the visualized thoracic spine. There is degenerative osteoarthritis of the bilateral shoulders. There is no demonstrated abnormality of the visualized soft tissue structures of the upper abdomen. RAD/Chest 1 View (Portable) IMPRESSION: 1. Stable cardiomegaly. 2. Bilateral pleural effusions not previously seen. Electronically Signed: Abel Morris DO at 11:33 EDT Tel [phone], Service support ,
--- NOTE | 2021-01-24 10:52 | EKG12_ITS ---
Test Reason : SOB Blood Pressure : / mmHG Vent. Rate : 096 BPM Atrial Rate : 098 BPM P-R Int : 000 ms QRS Dur : 106 ms QT Int : 350 ms P-R-T Axes : 000 090 -81 degrees QTc Int : 442 ms Atrial fibrillation Right ventricular hypertrophy with repolarization abnormality Nonspecific T wave abnormality Abnormal ECG Confirmed by BEST STEWART, SAI ([id number]), editor managing newspaper BENJI TONG ([id number]) on 01/28/2021 10:28:33 AM Referred By: LILA RU Confirmed By:SAI JEWELL MD
--- NOTE | 2021-01-24 10:53 | ED.VIS.DYS ---
HPI History of Present Illness Chief Complaint: Shortness of Breath Detail of Chief Complaint: Presents to the emergency department complaint of low pulse ox and low bloo Informant: patient Onset/Context/Timing Onset: Today Associated Symptoms cough and chills Narrative Narrative: Patient presents to the emergency department from [facility] for complaint of low pulse ox and low blood pressure. Patient apparently was running pulse ox of 66 to 86% on BiPAP. Patient denied feeling dyspneic and denies any chest pain. She was also told her blood pressure was running low in the low 80s. She denies fever. She was Covid tested 2 days ago and was negative. She has not had a Covid vaccine. She is currently on Coumadin for history of PE as well as history of A. fib. Patient has history of CHF and COPD. Patient complains of increased swelling in her legs. Prior similar symptoms: Yes PFSH PFS Medical History Arthritis Atrial fibrillation Blood clot in vein Carpal tunnel syndrome Chronic pain Congestive heart failure (CHF) Depression DVT (deep venous thrombosis) Former smoker GERD (gastroesophageal reflux disease) History of left heart catheterization (LHC) (~07/20/20) Hyperkalemia Obesity Pulmonary embolism Home Medications acetaminophen 325 mg tablet 650 mg PO BID PRN tab 07/05/19 [History Last Taken Unknown] calcium carb-magnesium carb 250 - 300 mg PO DAILY 07/05/19 [History Last Taken Unknown] cholecalciferol (vitamin D3) 125 mcg (5,000 unit) capsule 5,000 mcg PO DAILY 07/05/19 [History Last Taken 07/17/20] ferrous sulfate 325 mg PO DAILY 11/13/20 [History Last Taken Unknown] vitamin B complex [B Complex-Vitamin B12] 1 tab PO DAILY 11/13/20 [History Last Taken Unknown] metoprolol tartrate 25 mg PO BID 12/17/20 [History Last Taken Unknown] omeprazole 20 mg PO DAILY 12/17/20 [History Last Taken Unknown] warfarin 3 mg PO SUMOWETHFRSA 12/17/20 [History Last Taken Unknown] diltiazem HCl 60 mg PO Q12 #60 cap 12/24/20 [Rx Last Taken Unknown] albuterol sulfate 2.5 mg INHALATION Q6H PRN 01/05/21 [History Last Taken Unknown] furosemide [Lasix] 40 mg PO DAILY 01/05/21 [History Last Taken Unknown] lorazepam 0.5 mg PO DAILY PRN 01/05/21 [History Last Taken Unknown] magnesium hydroxide [Milk of Magnesia] 400 mg PO DAILY PRN 01/05/21 [History Last Taken Unknown] warfarin 4 mg TU 01/05/21 [History Last Taken Unknown] Allergy/AdvReac Type Severity Reaction Status Date / Time enoxaparin [From Lovenox] Allergy Severe Rash & Verified 01/24/21 10:46 Itching peach Allergy Severe Other Verified 01/24/21 10:46 green tea Allergy Intermediate Itching Verified 01/24/21 10:46 Family History Mother Diabetes High cholesterol Father Diabetes Heart disease Hypertension Sister Diabetes High cholesterol Brother Diabetes Surgical History History of cholecystectomy History of oral surgery Social History Smoking Status: Former smoker alcohol intake: never substance use type: does not use what type of physical activity do you participate in: none ROS ROS ED Constitutional Constitutional ED: Reports systems reviewed and no addt'l complaints, except as documented and chills; Denies body ache(s) or change in weight Eyes Eyes: Denies acute decrease in peripheral vision, change in vision, double vision or loss of vision ENT ENT ED: Reports none; Denies ear pain, lip swelling, loss taste/smell, neck pain, otalgia or sore throat Cardiovascular Cardiovascular: Reports none; Denies abdominal pain, chest pain with activity, leg edema, lightheadedness, palpitations, rapid heart rate or syncope Respiratory/Chest Respiratory/Chest: Reports none, cough, dyspnea, sputum and other Details: Brown sputum at times. ; Denies change in mental status, dry cough, hemoptysis, shortness of breath at rest or shortness of breath with exertion Gastrointestinal Gastrointestinal: Reports none; Denies abdominal pain, change in stool character, diarrhea, hematemesis, hematochezia, melena, rectal bleeding or vomiting Genitourinary Genitourinary ED: Reports none; Denies abdominal discomfort, anuria, dysuria, genital pain or polyuria Musculoskeletal Musculoskeletal: Reports none; Denies arthralgias, back pain, difficulty walking, extremity pain, muscle weakness or myalgias Integumentary Reports none; Denies abscess or rash Neurologic Neurologic: Reports none; Denies abnormal gait, confusion, focal weakness, frequent falls, headache(s), loss of vision, numbness, paresthesias, radicular pain, vertigo or weakness Psychiatric Psychiatric: Reports systems reviewed and no addt'l complaints, except as documented and none; Denies behavioral changes, confusion, difficulty concentrating, hallucinations, suicidal ideation, tactile hallucinations or visual hallucinations Endocrine Endocrinology: Denies none, cold intolerance, excessive sweating, fatigue or heat intolerance Hematologic/Lymphatic Hematologic/Lymphatic: Reports none; Denies anemia, easy bleeding or easy bruising Allergic/Immunologic Allergic/Immunologic ED: Denies as per HPI, none, lip swelling, mouth swelling, throat swelling, tongue swelling or hives EXAM Physical Exam Const Vital Signs: 01/24/21 10:38 01/24/21 10:46 01/24/21 11:14 Temperature 98.2 F 98.2 F Temperature Source Oral Oral Pulse Rate 99 105 H 105 H Respiratory Rate 28 H 25 H 24 H Respiratory Effort Short of Breath Respiratory Depth Normal Respiratory Pattern Tachypnea Blood Pressure 109/78 97/80 Blood Pressure Mean 88 85 Pulse Ox 95 95 Oxygen Delivery Method Nasal Cannula Nasal Cannula Oxygen Flow Rate (L/min) 5 5 Positive well nourished and well developed General Appearance ED: well developed and NAD HEENT Reports TM's clear and moist mucous membranes normocephalic and atraumatic; Negative for trauma or tenderness Tympanic Membrane ED: Yes TM's clear Eyes PERRL and EOMs intact bilaterally General Eye ED: Negative for pale conjunctiva or scleral icterus Neck no lymphadenopathy, supple and no JVD General: Negative for tenderness Chest Wall inspection of chest normal and palpation of chest normal Chest: Negative for tenderness Resp Resp Narrative: Patient mildly tachypneic. Mild conversational dyspnea. No accessory muscle use or retractions. Effort and Inspection: Negative for respiratory distress or pain with movement Auscultation: rales, rhonchi and wheezes; Negative for diminished lung sounds Cardio regular rate, regular rhythm, S1 normal heart sound, S2 normal heart sound and no murmurs Peripheral Pulses: pulses 2+ throughout GI normal to inspection, nondistended, normoactive bowel sounds, soft to palpation, non-tender, non-distended and no masses Back/Spine no CVA tenderness and no thoracic nor lumbar tenderness Extremity normal to inspection General Extremety ED: Negative for edema General Extremity: Negative for edema Neuro oriented x3, CN's II-XII intact bilaterally, no sensory deficits noted and gait normal Sensorium / Orientation: awake, alert, oriented to person, oriented to place and oriented to time Motor Exam: strength 5/5 throughout and strength abnormal Psych mental status grossly normal Skin no rashes or lesions noted and no wounds MDM MDM MDM Narrative Medical decision making narrative: Case discussed with hospitalist will evaluate patient for admission. Her blood pressure ranging from low 100 systolic to upper 80s systolic. Patient was ordered an ABG which will be pending and started on CPAP. Initially Lasix was withheld secondary to marginal blood pressures. Lab Data Attestation: I reviewed the patient's lab results. Labs: Laboratory Results - last 24 hr 01/24/21 01/24/21 01/24/21 10:50 10:50 10:50 WBC 6.5 RBC 4.00 L Hgb 10.6 L Hct 36.4 L MCV 91.0 MCH 26.5 L MCHC 29.1 L RDW Std Deviation 90.7 H RDW Coeff of Claudia 29.0 H Plt Count 357 MPV 10.1 Immature Gran % (Auto) 1.700 H Neut % (Auto) 62.0 Lymph % (Auto) 21.3 [place] % (Auto) 11.0 H Eos % (Auto) 3.1 Baso % (Auto) 0.9 Absolute Neuts (auto) 4.1 Absolute Lymphs (auto) 1.39 Nucleated RBC % 0 Differential Comment SCANNED Anisocytosis 2+ Microcytosis 1+ Macrocytosis 1+ PT 36.9 H INR 3.8 Sodium 136 Potassium 4.2 Chloride 93 L Carbon Dioxide 41.0 H Anion Gap 2 L BUN 33 H Creatinine 1.39 H Estim Creat Clear Calc 30.14 Est GFR (MDRD) Af Amer 49 L Est GFR (MDRD) Non-Af 41 L BUN/Creatinine Ratio 23.7 H Glucose 121 H Calcium 9.7 Troponin I High Sens 19 B-Natriuretic Peptide 01/24/21 10:50 WBC RBC Hgb Hct MCV MCH MCHC RDW Std Deviation RDW Coeff of Claudia Plt Count MPV Immature Gran % (Auto) Neut % (Auto) Lymph % (Auto) [place] % (Auto) Eos % (Auto) Baso % (Auto) Absolute Neuts (auto) Absolute Lymphs (auto) Nucleated RBC % Differential Comment Anisocytosis Microcytosis Macrocytosis PT INR Sodium Potassium Chloride Carbon Dioxide Anion Gap BUN Creatinine Estim Creat Clear Calc Est GFR (MDRD) Af Amer Est GFR (MDRD) Non-Af BUN/Creatinine Ratio Glucose Calcium Troponin I High Sens B-Natriuretic Peptide 408.6 H Radiography Chest X-Ray - ED: 1 View Diagnostic Testing: Radiology Impression Chest X-Ray 01/24/21 10:51 IMPRESSION: 1. Stable cardiomegaly. 2. Bilateral pleural effusions not previously seen. Electronically Signed: Abel Morris DO at 11:33 EDT Tel [phone], Service support , 1 view chest x-ray obtained interpreted by myself as bilateral pleural effusions and CHF. Radiology in agreement about bilateral effusions and stable cardiomegaly. EKG Initial EKG: Attestation: I personally reviewed and interpreted this EKG as follows: Comments: Atrial fibrillation with a ventricular rate of [address] changes. Prior EKG tracings: available for review Prior: Unchanged Discharge Plan Triage Chief Complaint: Shortness of Breath ED Provider: Sergio Frias Dx/Rx/DC Orders Clinical Impression: CHF (congestive heart failure), Pleural effusion, Acute respiratory failure with hypoxemia Prescriptions: No Action cholecalciferol (vitamin D3) 125 mcg (5,000 unit) capsule 5,000 mcg PO DAILY RF: 0 calcium carb-magnesium carb 250 - 300 mg PO DAILY RF: 0 acetaminophen [Tylenol] 325 mg tablet 650 mg PO BID PRN (Reason: Pain 1-10 Or Fever) RF: 0 ferrous sulfate 325 MG tablet 325 mg PO DAILY RF: 0 vitamin B complex [B Complex-Vitamin B12] Tablet 1 tab PO DAILY RF: 0 omeprazole 20 mg Capsule,Delayed Release(Dr/Ec) 20 mg PO DAILY RF: 0 warfarin 5 mg tablet 3 mg PO SUMOWETHFR RF: 0 metoprolol tartrate 50 mg tablet 25 mg PO BID RF: 0 diltiazem HCl 60 mg Capsule,Extended Release 12 Hr 60 mg PO Q12 Qty: 60 RF: 0 warfarin 4 mg Tablet 4 mg TU RF: 0 lorazepam 0.5 mg Tablet 0.5 mg PO DAILY PRN (Reason: Anxiety) RF: 0 magnesium hydroxide [Milk of Magnesia] 400 mg/5 mL Suspension 400 mg PO DAILY PRN (Reason: Constipation) RF: 0 albuterol sulfate 2.5 mg/0.5 mL Solution For Nebulization 2.5 mg INHALATION Q6H PRN (Reason: Shortness Of Breath) RF: 0 furosemide [Lasix] 80 mg tablet 40 mg PO DAILY RF: 0 Primary Care Provider: Joe Torres Referrals: Joe Torres MD [Primary Care Provider] - Disposition Disposition: Acute Care Hospital [facility]
[2021-01-24 11:07] LABS: Absolute Lymphocyte Count 1.39 X10^3/uL (0.83-4.51); Absolute Neutrophil Count 4.1 X10^3/uL (2.0-7.7); Basophil# 0.06 X10^3/uL; Basophil% 0.9 % (0-1); Eosinophils% 3.1 % (0-5); Hematocrit 36.4 % (37-47); Hemoglobin 10.6 g/dL (12.0-15.0); Lymphocyte # 1.39 X10^3/ul (0.83-4.51); Lymphocyte % 21.3 % (19-41); Mean Corp Hgb Conc 29.1 g/dL (32-36); Mean Corpuscular Hgb 26.5 pg (27.0-32.0); Mean Platelet Vol. 10.1 fl (6.2-12.0); Monocyte# 0.72 X10^3/uL; NRBC Flagged by Analyzer 0 % (0-5); Neutrophil # 4.05 X10^3/uL (2.7-7.7); POSITIVE MORPHOLOGY YES; Platelet Count 357 K/mm3 (150-450); RBC Distribution Width SD 90.7 fl (35.1-43.9); White Blood Count 6.5 K/mm3 (4.4-11.0)
[2021-01-24 11:12] LABS: International Normalized Ratio 3.8; Prothrombin Time (Protime)PT. 36.9 SECONDS (11.7-14.9)
[2021-01-24] MEDS: Ipratropium/Albuterol Sulfate 3 ML AMPUL.NEB INHALATION ×2 (11:13→19:21)
[2021-01-24 11:17] LABS: Differential Indicated SCAN CRITERIA MET
[2021-01-24 11:20] LABS: Anion Gap 2 (5-15); BUN 33 mg/dL (7-18); BUN/Creat Ratio 23.7 RATIO (10-20); Calcium,Total 9.7 mg/dL (8.5-10.1); Chloride 93 mmol/L (98-107); Creatinine, Serum 1.39 mg/dL (0.55-1.02); EST Glomerular Filtration Rate 41 mL/min (>60); Est Glom Filt Rate - Afr Amer 49 mL/min (>60); Estimated Creatinine Clearance 30.14 ml/min; Glucose 121 mg/dL (74-106); Potassium 4.2 mmol/L (3.5-5.1); Sodium Level 136 mmol/L (136-145); Troponin-I HS 19 pg/mL (3.0-54.0)
[2021-01-24 11:25] LABS: Anisocytosis 2+; Differential Comment SCANNED; Macrocytosis 1+; Microcytosis 1+
[2021-01-24 11:31] LABS: BNP,B-Type NATRIURETIC PEPTIDE 408.6 pg/mL (0-100)
[2021-01-24] MEDS: MethylPREDNISolone 125 MG/2 ML Vial IV (12:16)
--- NOTE | 2021-01-24 12:21 | HP.PCM.HOS_ITS ---
HPI - General General Date of Admission: 01/24/21 Date of Service: 01/24/21 Chief Complaint: Low blood pressure, shortness of breath HPI Narrative NICOLE RAUSCH, is a 60 F who presents with progressive shortness of breath and hypertension. Patient is resident in [facility]. She has history of chronic respiratory failure/obesity hypoventilatory syndrome/STACEY/pulmonary hypertension, CKD. She was recently discharged from the hospital after being treated for KANE/acute COPD exacerbation/CHF exacerbation. She was on Lasix drip during that visit. Patient was reportedly hypotensive and lethargic in the intermediate. Nursing h ad reported that they were unable to get a pulse of above 70%. Per the EMS, patient blood pressure was 90/58. She was on BiPAP, appeared lethargic but eyes open and responded when spoken to. Patient was placed on the nonrebreather mask and she was saturating at low 90s. Her oxygen trend per EMS was between 86 to 90s. Patient has stated to the EMS that the intermediate likes to overreact. In the ED, BP 109/78, RR 28, Spo2 95% on 5 L oxygen. Her admitting CBCD was unremarkable. CMP showed BUN of 33, creatinine 1.39, no electrolyte abnormalities, bicarb was 41, troponin was 19. Her BNP 409.6. ABG showed pH of 7.35, PCO2 17.2, PO2 was 40% on BiPAP Chest X-ray showed stable cardiomegaly, bilateral pleural effusions, not previously seen [facility] Medical History Arthritis Atrial fibrillation Blood clot in vein Carpal tunnel syndrome Chronic pain Congestive heart failure (CHF) Depression DVT (deep venous thrombosis) Former smoker GERD (gastroesophageal reflux disease) History of left heart catheterization (LHC) (~07/20/20) Hyperkalemia Obesity Pulmonary embolism Home Medications acetaminophen 325 mg tablet 650 mg PO BID PRN tab 07/05/19 [History Last Taken Unknown] calcium carb-magnesium carb 250 - 300 mg PO DAILY 07/05/19 [History Last Taken Unknown] cholecalciferol (vitamin D3) 125 mcg (5,000 unit) capsule 5,000 mcg PO DAILY 07/05/19 [History Last Taken 07/17/20] ferrous sulfate 325 mg PO DAILY 11/13/20 [History Last Taken Unknown] vitamin B complex [B Complex-Vitamin B12] 1 tab PO DAILY 11/13/20 [History Last Taken Unknown] metoprolol tartrate 25 mg PO BID 12/17/20 [History Last Taken Unknown] omeprazole 20 mg PO DAILY 12/17/20 [History Last Taken Unknown] warfarin 3 mg PO SUMOWETHFRSA 12/17/20 [History Last Taken Unknown] diltiazem HCl 60 mg PO Q12 #60 cap 12/24/20 [Rx Last Taken Unknown] albuterol sulfate 2.5 mg INHALATION Q6H PRN 01/05/21 [History Last Taken Unknown] furosemide [Lasix] 40 mg PO DAILY 01/05/21 [History Last Taken Unknown] lorazepam 0.5 mg PO DAILY PRN 01/05/21 [History Last Taken Unknown] magnesium hydroxide [Milk of Magnesia] 400 mg PO DAILY PRN 01/05/21 [History Last Taken Unknown] warfarin 4 mg TU 01/05/21 [History Last Taken Unknown] Allergy/AdvReac Type Severity Reaction Status Date / Time enoxaparin [From Lovenox] Allergy Severe Rash & Verified 01/24/21 10:46 Itching peach Allergy Severe Other Verified 01/24/21 10:46 green tea Allergy Intermediate Itching Verified 01/24/21 10:46 Family History Mother Diabetes High cholesterol Father Diabetes Heart disease Hypertension Sister Diabetes High cholesterol Brother Diabetes Surgical History History of cholecystectomy History of oral surgery Social History Smoking Status: Former smoker alcohol intake: never substance use type: does not use what type of physical activity do you participate in: none ROS Review of Systems ROS Unobtainable: due to encephalopathy and other Details: on Bipap Vital Signs Vital Signs Vital Signs: 01/24/21 10:38 01/24/21 10:46 01/24/21 11:14 Temperature 98.2 F 98.2 F Temperature Source Oral Oral Pulse Rate 99 105 H 105 H Respiratory Rate 28 H 25 H 24 H Respiratory Effort Short of Breath Respiratory Depth Normal Respiratory Pattern Tachypnea Blood Pressure 109/78 97/80 Blood Pressure Mean 88 85 Pulse Ox 95 95 Oxygen Delivery Method Nasal Cannula Nasal Cannula Oxygen Flow Rate (L/min) 5 5 Weight Weight: 161.4 kg Body Mass Index (BMI) 69.5 Physical Exam Narrative Physical exam: General: Alert, Oriented x3, Cooperative, looks frail, pale, lethargic, responds to questions HEENT: Atraumatic Oral: Dry Mucosa Neck: Supple Lungs: Diminished, wheezes++ Cardiovascular: HS I+II, irregular Abdomen: Bowel Sounds Present, Soft, Non Tender, obese anterior abdominal wall Extremities: Bilateral leg edema +3 Results Lab / Micro Data Result Diagrams: 01/24/21 10:50 01/24/21 10:50 Labs: Laboratory Results - last 24 hr 01/24/21 10:50: WBC 6.5, RBC 4.00 L, Hgb 10.6 L, Hct 36.4 L, MCV 91.0, MCH 26.5 L, MCHC 29.1 L, RDW Std Deviation 90.7 H, RDW Coeff of Claudia 29.0 H, Plt Count 357, MPV 10.1, Immature Gran % (Auto) 1.700 H, Neut % (Auto) 62.0, Lymph % (Auto) 21.3, Hardy % (Auto) 11.0 H, Eos % (Auto) 3.1, Baso % (Auto) 0.9, Absolute Neuts (auto) 4.1, Absolute Lymphs (auto) 1.39, Nucleated RBC % 0, Differential Comment SCANNED, Anisocytosis 2+, Microcytosis 1+, Macrocytosis 1+ 01/24/21 10:50: PT 36.9 H, INR 3.8 01/24/21 10:50: Sodium 136, Potassium 4.2, Chloride 93 L, Carbon Dioxide 41.0 H, Anion Gap 2 L, BUN 33 H, Creatinine 1.39 H, Estim Creat Clear Calc 30.14, Est GFR (MDRD) Af Amer 49 L, Est GFR (MDRD) Non-Af 41 L, BUN/Creatinine Ratio 23.7 H , Glucose 121 H, Calcium 9.7, Troponin I High Sens 19 01/24/21 10:50: B-Natriuretic Peptide 408.6 H Micro: Microbiology 01/24/21 10:56 Mucosa - Nose SARS-CoV-2 Antigen (Rapid) - Final Radiology Impression Chest X-Ray 01/24/21 10:51 IMPRESSION: 1. Stable cardiomegaly. 2. Bilateral pleural effusions not previously seen. Electronically Signed: Abel Morris DO at 11:33 EDT Tel [phone], Service support , Assessment & Plan Assessment/Plan (1) CHF (congestive heart failure): QUALIFIERS: Heart failure type: systolic Heart failure chronicity: acute on chronic Qualified Code(s): I50.23 - Acute on chronic systolic (congestive) heart failure (2) Acute respiratory failure with hypoxemia: (3) Pleural effusion: PLAN: 1. Acute on chronic combined respiratory failure secondary to acute on chronic heart failure/possible COPD exacerbation/worsening severe pulmonary hypertension Patient currently on BiPAP, will continue to monitor on continuous pulse ox She was 5 L of oxygen in the intermediate with BiPAP ABG shows PCO2 of 70 We will consult pulmonology, breathing treatments, IV Lasix, empiric treatment with Solu-Medrol 2. Acute on chronic heart failure with reduced EF, EF of 45%, RVSP of 79 Patient's admitting BNP appears more than 400 Recently admitted a month ago for similar presentation; was on Lasix drip at that time We will start on 20 mg IV q. 8h on account of relative hypotension; will have a low threshold to switch to Lasix drip May need repeat 2d-ECHO 3. Chronic atrial fibrillation, rate controlled, INR 3.8, Would hold Coumadin tonight, will also hold Cardizem for now on account of relative hypotension Repeat INR in am 4. Hypotension, relative, multifactorial, will hold meds for now 5. Left upper thigh ulcer, 1cm x 2cm, POA, no signs of cellulitis, wound RN consulted 6. Morbid obesity, BMI 66.8, complicates her care Patient is clinically gradually getting worse. She was seen by palliative care in her last admission. Code status - DNR-CCA from intermediate Charges/Coding Visit Charges Inpatient E&M: 91030 Init Hosp L3
--- NOTE | 2021-01-24 12:49 | CPS ---
Critical ABG results CO2 70.2 Dr. Frias aware.
[2021-01-24 12:56] LABS: Allen Test Positive; Base Excess 13 mmol/L (-2 to +2); Bicarbonate 38.5 mmol/L (22-26); Blood Gas Specimen Type ART; FI02 30; O2 Delivery Device BiPAP; PO2 25 mmHG (75-100); RR 12; SITE R Radial; SO2 40 % (95-99); Total Carbon Dioxide 41 mmol/L; pCO2 70.2 mmHg (35-45); pH 7.35 (7.35-7.45)
[2021-01-24] MEDS: Furosemide 20 MG/2 ML VIAL IV ×2 (14:03→21:49)
[2021-01-24] MEDS: 0.9% Saline Lock 10 ML Syringe IV ×2 (14:03→21:49)
--- NOTE | 2021-01-24 20:41 | PCS.PANDOC ---
PANDEMIC DOCUMENTATION INITIATED: Date: 01/18/2021 Time: 190
[2021-01-25] VITALS (45 sets, daily range): BP systolic 80–130; BP diastolic 44–94; PULSE 83–108; RESP 12–31; TEMP 35.7–36.7; O2SAT 9–100
[2021-01-25] MEDS: Ipratropium/Albuterol Sulfate 3 ML AMPUL.NEB INHALATION ×4 (02:31→19:25)
[2021-01-25] MEDS: 0.9% Saline Lock 10 ML Syringe IV ×3 (05:24→20:33)
[2021-01-25 06:20] LABS: Absolute Lymphocyte Count 0.64 X10^3/uL (0.83-4.51); Absolute Neutrophil Count 4.8 X10^3/uL (2.0-7.7); Hematocrit 31.4 % (37-47); Hemoglobin 9.2 g/dL (12.0-15.0); Lymphocyte # 0.64 X10^3/ul (0.83-4.51); Lymphocyte % 11.5 % (19-41); Mean Corp Hgb Conc 29.3 g/dL (32-36); Mean Corpuscular Hgb 25.7 pg (27.0-32.0); Mean Corpuscular Volume 87.7 fL (81-99); Mean Platelet Vol. 10.1 fl (6.2-12.0); Monocyte# 0.07 X10^3/uL; Monocyte% 1.3 % (0-10); NRBC Flagged by Analyzer 0 % (0-5); Neutrophil % 86.3 % (47-70); POSITIVE MORPHOLOGY YES; Platelet Count 270 K/mm3 (150-450); RBC Distribution Width CV 27.8 % (11.6-14.6); RBC Distribution Width SD 86.5 fl (35.1-43.9); Red Blood Count 3.58 M/mm3 (4.2-5.4); White Blood Count 5.6 K/mm3 (4.4-11.0)
[2021-01-25 06:29] LABS: Prothrombin Time (Protime)PT. 43.2 SECONDS (11.7-14.9)
[2021-01-25 06:37] LABS: Differential Indicated SCAN CRITERIA MET
[2021-01-25 06:38] LABS: International Normalized Ratio 4.7
[2021-01-25 06:40] LABS: Anisocytosis 2+; Macrocytosis 1+; Microcytosis 1+
[2021-01-25 06:50] LABS: ALB/GLOB Ratio 0.5 RATIO (0.9-2.4); AST(SGOT) 14 U/L (15-37); Alanine Aminotransfer ALT/SGPT 16 U/L (13-56); Albumin, Serum 2.2 g/dL (3.2-5.0); Alkaline Phosphatase 83 U/L (45-117); Anion Gap 4 (5-15); BUN 34 mg/dL (7-18); BUN/Creat Ratio 27.2 RATIO (10-20); Chloride 94 mmol/L (98-107); Creatinine, Serum 1.25 mg/dL (0.55-1.02); EST Glomerular Filtration Rate 46 mL/min (>60); Est Glom Filt Rate - Afr Amer 56 mL/min (>60); Estimated Creatinine Clearance 33.52 ml/min; Globulin 4.5 g/dL (2.2-4.2); Glucose 175 mg/dL (74-106); Potassium 4.1 mmol/L (3.5-5.1); Protein, Total 6.7 g/dL (6.4-8.2); Sodium Level 135 mmol/L (136-145)
--- NOTE | 2021-01-25 09:26 | CASEMGMT ---
Patient is from [place]. faxed information to [place]. Sagrario Philip RECORD FILING CLERK OLGA
--- NOTE | 2021-01-25 09:59 | NURSING ---
wound photo: left lateral thigh
--- NOTE | 2021-01-25 10:33 | CON.PCM.RE_ITS ---
Assessment & Plan Assessment/Plan (1) CKD (chronic kidney disease), stage III: PLAN: Baseline creatinine 1.0 currently at 1.25. Urine output on low-dose Lasix. Urine output inaccurate. No need for dialysis. Poor dialysis candidate. Consider hospice/paliative care due to multiple comorbidities, poor quality of life, chronic debilitation. DW primaryservice. (2) Pleural effusion: PLAN: May need thoracentesis since her blood pressure is low which limits the use of diuretic therapy. (3) Acute respiratory failure with hypoxemia: PLAN: On BiPAP. History of pulmonary embolus and DVT. (4) Anemia: QUALIFIERS: Anemia type: iron deficiency Iron deficiency anemia type: unspecified iron deficiency Qualified Code(s): D50.9 - Iron deficiency anemia, unspecified PLAN: Hemoglobin 9.2 g (5) Hypotension: PLAN: Off all antihypertensive medications. Consider midodrine (6) Debility: PLAN: ECF patient from [facility]. Chronically bedridden. HPI Consult Data Date of Consult: 01/25/21 HPI Narrative HPI Narrative: NICOLE RAUSCH, is a 60 F who presents on 01/24 with progressive shortness of breath and hypotension. Patient is resident in [facility]. She was reported to be lethargic at [facility]. She is a poor historian. Ronna page on BiPAP. She nods her head to yes/no questions. She has history of chronic respiratory failure/obesity hypoventilatory syndrome/STACEY/pulmonary hypertension, morbid obesity, debilitation with inability to walk. She was seen on consult during last hospitalization in December for KANE on CKD stage 3 with baseline creatinine 1.076 on 01/05/21. Creatinine was 3.0 on 12/19/20 during last hospitalizalization. She was on Lasix drip during that visit for fluid overload. She is on intermittent lasix iv this admit. Blood pressure remains low. Labs on admission showed BUN of 33, creatinine 1.39 on admission ot 1.25 today. troponin was 19, BNP 409.6. ABG showed pH of 7.35, PCO2 17.2, PO2 was 40% on BiPAP. Chest X-ray showed stable cardiomegaly, bilateral pleural effusions. [facility] Medical History Arthritis Atrial fibrillation Blood clot in vein Carpal tunnel syndrome Chronic pain Congestive heart failure (CHF) Depression DVT (deep venous thrombosis) Former smoker GERD (gastroesophageal reflux disease) History of left heart catheterization (LHC) (~07/20/20) Hyperkalemia Obesity Pulmonary embolism Home Medications acetaminophen 325 mg tablet 650 mg PO BID PRN tab 07/05/19 [History Last Taken Unknown] calcium carb-magnesium carb 250 - 300 mg PO DAILY 07/05/19 [History Last Taken Unknown] cholecalciferol (vitamin D3) 125 mcg (5,000 unit) capsule 5,000 mcg PO DAILY 07/05/19 [History Last Taken 07/17/20] ferrous sulfate 325 mg PO DAILY 11/13/20 [History Last Taken Unknown] vitamin B complex [B Complex-Vitamin B12] 1 tab PO DAILY 11/13/20 [History Last Taken Unknown] metoprolol tartrate 25 mg PO BID 12/17/20 [History Last Taken Unknown] omeprazole 20 mg PO DAILY 12/17/20 [History Last Taken Unknown] warfarin 3 mg PO DAILY 12/17/20 [History Last Taken Unknown] albuterol sulfate 2.5 mg INHALATION Q6H PRN 01/05/21 [History Last Taken Un known] furosemide [Lasix] 40 mg PO DAILY 01/05/21 [History Last Taken Unknown] magnesium hydroxide [Milk of Magnesia] 30 ml PO DAILY PRN 01/05/21 [History Last Taken Unknown] clonazepam 0.5 mg PO BID 01/24/21 [History Last Taken Unknown] diltiazem HCl 60 mg PO Q12 01/24/21 [History Last Taken Unknown] Allergy/AdvReac Type Severity Reaction Status Date / Time enoxaparin [From Lovenox] Allergy Severe Rash & Verified 01/24/21 10:46 Itching peach Allergy Severe Other Verified 01/24/21 10:46 green tea Allergy Intermediate Itching Verified 01/24/21 10:46 Family History Mother Diabetes High cholesterol Father Diabetes Heart disease Hypertension Sister Diabetes High cholesterol Brother Diabetes Surgical History History of cholecystectomy History of oral surgery Social History Smoking Status: Former smoker alcohol intake: never substance use type: does not use what type of physical activity do you participate in: none ROS ROS Narrative Limited historian on BiPAP Constitutional Constitutional: Reports lethargy and other Details: Chronic debilitation, bedridden Cardiovascular Cardiovascular: Denies chest pain Respiratory/Chest Respiratory/Chest: Reports shortness of breath at rest Gastrointestinal Gastrointestinal: Denies nausea or vomiting Physical Exam Const Constitutional Narrative: Responds to yes/no questions, on BiPAP, mental status slow Resp Resp Narrative: On BiPAP Auscultation: rhonchi Cardio Cardio Narrative: Chronic atrial fibrillation on monitor GI non-tender and non-distended GI Narrative: Obese Auscultation: normoactive bowel sounds Palpation: soft Extremity General Extremity: edema bilateral (Mild) Peripheral Pulses: Yes pulses 2+ throughout Neuro Neuro Narrative: Responds to yes/no questions Sensorium / Orientation: awake Psych cooperative Lab / Micro Data Result Diagrams: 01/25/21 06:06 01/25/21 06:06 Labs: Laboratory Results - last 24 hr 01/24/21 10:50: WBC 6.5, RBC 4.00 L, Hgb 10.6 L, Hct 36.4 L, MCV 91.0, MCH 26.5 L, MCHC 29.1 L, RDW Std Deviation 90.7 H, RDW Coeff of Claudia 29.0 H, Plt Count 357, MPV 10.1, Immature Gran % (Auto) 1.700 H, Neut % (Auto) 62.0, Lymph % (Auto) 21.3, [place] % (Auto) 11.0 H, Eos % (Auto) 3.1, Baso % (Auto) 0.9, Absolute Neuts (auto) 4.1, Absolute Lymphs (auto) 1.39, Nucleated RBC % 0, Differential Comment SCANNED, Anisocytosis 2+, Microcytosis 1+, Macrocytosis 1+ 01/24/21 10:50: PT 36.9 H, INR 3.8 01/24/21 10:50: Sodium 136, Potassium 4.2, Chloride 93 L, Carbon Dioxide 41.0 H, Anion Gap 2 L, BUN 33 H, Creatinine 1.39 H, Estim Creat Clear Calc 30.14, Est GFR (MDRD) Af Amer 49 L, Est GFR (MDRD) Non-Af 41 L, BUN/Creatinine Ratio 23.7 H , Glucose 121 H, Calcium 9.7, Troponin I High Sens 19 01/24/21 10:50: B-Natriuretic Peptide 408.6 H 01/25/21 06:06: WBC 5.6, RBC 3.58 L, Hgb 9.2 L, Hct 31.4 L, MCV 87.7, MCH 25.7 L , MCHC 29.3 L, RDW Std Deviation 86.5 H, RDW Coeff of Claudia 27.8 H, Plt Count 270, MPV 10.1, Immature Gran % (Auto) 0.900, Neut % (Auto) 86.3 H, Lymph % (Auto) 11.5 L, [place] % (Auto) 1.3, Eos % (Auto) 0.0, Baso % (Auto) 0.0, Absolute Neuts (auto) 4.8, Absolute Lymphs (auto) 0.64 L, Nucleated RBC % 0, Anisocytosis 2+, Microcytosis 1+, Macrocytosis 1+ 01/25/21 06:06: Sodium 135 L, Potassium 4.1, Chloride 94 L, Carbon Dioxide 37.0 H, Anion Gap 4 L, BUN 34 H, Creatinine 1.25 H, Estim Creat Clear Calc 33.52, Est GFR (MDRD) Af Amer 56 L, Est GFR (MDRD) Non-Af 46 L, BUN/Creatinine Ratio 27.2 H , Glucose 175 H, Calcium 9.0, Total Bilirubin 0.90, AST 14 L, ALT 16, Alkaline Phosphatase 83, Total Protein 6.7, Albumin 2.2 L, Globulin 4.5 H, Albumin/Globulin Ratio 0.5 L 01/25/21 06:06: PT 43.2 H, INR 4.7 H* Micro: Microbiology 01/24/21 10:56 Mucosa - Nose SARS-CoV-2 Antigen (Rapid) - Final ABG Data ABG results: ABG 01/24/21 12:47 Specimen Type ART Sample Site R Radial pH 7.35 Bicarbonate Actual 38.5 H Total CO2 41 Base Excess 13 H O2 Saturation 40 L O2 % 30 ABG pCO2 70.2 H* ABG pO2 25 L* Gerber Test Positive Respiration Rate 12 O2 Delivery Device BiPAP Crit Call To/Read Back Yes Radiology Impression Chest X-Ray 01/24/21 10:51 IMPRESSION: 1. Stable cardiomegaly. 2. Bilateral pleural effusions not previously seen. Electronically Signed: Abel Morris DO at 11:33 EDT Tel [phone], Service support ,
--- NOTE | 2021-01-25 10:33 | PN.HOSP_ITS ---
Documented by User: Tony AVILEZ 01/25/21 10:58 Subjective Subjective 60-year-old female lying in bed, alert and orient x3. Patient is still in acute respiratory distress and is on BiPAP at an FiO2 of 60. Denies any other complaints. Objective Data Objective Data Vital Signs: Vital Signs Temp Pulse Resp BP Pulse Ox 96.4 F L 107 H 16 86/49 L 97 01/25/21 10:00 01/25/21 10:00 01/25/21 10:00 01/25/21 10:00 01/25/21 10:00 Oxygen Flow Rate (L/min) 15 Oxygen Delivery Method Bi-pap Weight: 347 lb 0.121 oz Body Mass Index (BMI) 66.8 Intake & Output: Intake and Output for Last 24 Hours 01/23/21 01/24/21 01/25/21 23:59 23:59 23:59 Intake Total 60 / 60 Output Total 100 / 400 700 / 700 Balance -100 / -400 -640 / -640 Lab / Micro Data Result Diagrams: 01/25/21 06:06 01/25/21 06:06 Labs: Laboratory Results - last 24 hr 01/24/21 10:50: WBC 6.5, RBC 4.00 L, Hgb 10.6 L, Hct 36.4 L, MCV 91.0, MCH 26.5 L, MCHC 29.1 L, RDW Std Deviation 90.7 H, RDW Coeff of Claudia 29.0 H, Plt Count 357, MPV 10.1, Immature Gran % (Auto) 1.700 H, Neut % (Auto) 62.0, Lymph % (Auto) 21.3, [place] % (Auto) 11.0 H, Eos % (Auto) 3.1, Baso % (Auto) 0.9, Absolute Neuts (auto) 4.1, Absolute Lymphs (auto) 1.39, Nucleated RBC % 0, Differential Comment SCANNED, Anisocytosis 2+, Microcytosis 1+, Macrocytosis 1+ 01/24/21 10:50: PT 36.9 H, INR 3.8 01/24/21 10:50: Sodium 136, Potassium 4.2, Chloride 93 L, Carbon Dioxide 41.0 H, Anion Gap 2 L, BUN 33 H, Creatinine 1.39 H, Estim Creat Clear Calc 30.14, Est GFR (MDRD) Af Amer 49 L, Est GFR (MDRD) Non-Af 41 L, BUN/Creatinine Ratio 23.7 H , Glucose 121 H, Calcium 9.7, Troponin I High Sens 19 01/24/21 10:50: B-Natriuretic Peptide 408.6 H 01/25/21 06:06: WBC 5.6, RBC 3.58 L, Hgb 9.2 L, Hct 31.4 L, MCV 87.7, MCH 25.7 L , MCHC 29.3 L, RDW Std Deviation 86.5 H, RDW Coeff of Claudia 27.8 H, Plt Count 270, MPV 10.1, Immature Gran % (Auto) 0.900, Neut % (Auto) 86.3 H, Lymph % (Auto) 11.5 L, [place] % (Auto) 1.3, Eos % (Auto) 0.0, Baso % (Auto) 0.0, Absolute Neuts (auto) 4.8, Absolute Lymphs (auto) 0.64 L, Nucleated RBC % 0, Anisocytosis 2+, Microcytosis 1+, Macrocytosis 1+ 01/25/21 06:06: Sodium 135 L, Potassium 4.1, Chloride 94 L, Carbon Dioxide 37.0 H, Anion Gap 4 L, BUN 34 H, Creatinine 1.25 H, Estim Creat Clear Calc 33.52, Est GFR (MDRD) Af Amer 56 L, Est GFR (MDRD) Non-Af 46 L, BUN/Creatinine Ratio 27.2 H , Glucose 175 H, Calcium 9.0, Total Bilirubin 0.90, AST 14 L, ALT 16, Alkaline Phosphatase 83, Total Protein 6.7, Albumin 2.2 L, Globulin 4.5 H, Albumin/Globulin Ratio 0.5 L 01/25/21 06:06: PT 43.2 H, INR 4.7 H* Micro: Microbiology 01/24/21 10:56 Mucosa - Nose SARS-CoV-2 Antigen (Rapid) - Final ABG Data ABG results: ABG 01/24/21 12:47 Specimen Type ART Sample Site R Radial pH 7.35 Bicarbonate Actual 38.5 H Total CO2 41 Base Excess 13 H O2 Saturation 40 L O2 % 30 ABG pCO2 70.2 H* ABG pO2 25 L* Gerber Test Positive Respiration Rate 12 O2 Delivery Device BiPAP Crit Call To/Read Back Yes Radiography Diagnostic Testing: Radiology Impression Chest X-Ray 01/24/21 10:51 IMPRESSION: 1. Stable cardiomegaly. 2. Bilateral pleural effusions not previously seen. Electronically Signed: Abel Morris DO at 11:33 EDT Tel [phone], Service support , Physical Exam Const alert, oriented x3 and no apparent distress HEENT head/scalp atraumatic and moist oral mucous membranes Head and Scalp: normocephalic Eyes PERRL, EOMs intact bilaterally and conjunctivae normal Neck no lymphadenopathy, supple and no JVD Resp Effort and Inspection: tachypneic, respiratory distress and labored Auscultation: rhonchi and diminished lung sounds Cardio no murmurs and no JVD Cardio Narrative: Hypotensive, pressures consistently in the 80s/50s. Rate: tachycardic Rhythm: regular rhythm GI normal to inspection, nondistended, normoactive bowel sounds, soft to palpation and non-tender Extremity Extremity Narrative: Bilateral lower extremity edema. Skin Skin Narrative: Chronic wound to the left lateral thigh/hip: Dark red, edematous?pitting, weeping Neuro CN's II-XII intact bilaterally Psych affect normal Assessment & Plan Assessment/Plan (1) CHF (congestive heart failure): QUALIFIERS: Heart failure chronicity: acute on chronic Heart failure type: systolic Qualified Code(s): I50.23 - Acute on chronic systolic (congestive) heart failure (2) Pleural effusion: (3) Acute respiratory failure with hypoxemia: (4) Acute on chronic systolic CHF (congestive heart failure): PLAN: Day 2 Discharge planning: Patient is a resident at [facility] and would like to return there when medically ready. 1) acute on chronic respiratory failure, mixed etiology Still in respiratory distress, currently satting 95% on BiPAP with an FiO2 of 60. Diuresing this patient has proved difficult as she has also been hypotensive. Pulmonology and nephrology following. Mixed etiology of possible CHF exacerbation, COPD exacerbation and worsening severe pulmonary hypertension. BNP on admission was elevated above 400. Chest x-ray on admission demonstrated stable cardiomegaly with new bilateral pleural effusions. Most recent echocardiogram obtained on 07/26 was limited and only demonstrated a pulmonary artery systolic pressure of 55 mmHg with no comment on LVEF. Plan; remain admitted to PCU for cardiac telemetry monitoring, nephrology and pulmonology following, continue Lasix as tolerated by blood pressure, continue scheduled duo nebs, continue Solu-Medrol, continue BiPAP, O2 per protocol. 2) chronic atrial fibrillation On metoprolol and diltiazem for rate control. Anticoagulated on warfarin. Plan; hold metoprolol and diltiazem due to hypotension, warfarin on hold due to supratherapeutic INR. 3) supratherapeutic INR INR currently 4.7, hold warfarin as above. 4) hypotension Hold hypertensive regimen as above. 5) chronic wound to left lateral thigh Wound care following. 6) morbid obesity Weight is currently 247 pounds with a BMI of 67.8. Complicates care. Weight loss advised. DVT prophylaxis -INR is currently supratherapeutic, home warfarin on hold. Patient seen by Tony Kraft PA-C, under the supervision of Dr. Lyon. Documented by User: Dr. Balbir Lyon MD 01/25/21 12:39 Objective Data Lab / Micro Data Result Diagrams: 01/25/21 06:06 01/25/21 06:06 Assessment & Plan Addt'l Comments This patient was seen in conjunction with Tony Kraft PA-C. I have independently interviewed and examined the patient and reviewed pertinent historical, laboratory, and other data. Please refer to Tony Kraft PA-C's note for details of this patient's presentation, findings, and recommendations. I have reviewed Tony Kraft PA-C's note and concur with documented findings. In brief, patient is a 65 year-old lady morbidly obese with BMI of 67.8 resident [email or web address] brought to the emergency department with acute hypoxia Physical Examination: GENERAL: Patient on BiPAP HEENT: Atraumatic; EYES; Anicteric, Normal Conjunctiva NECK; supple, normal thyroid, RESPIRATORY: Diminished to auscultation CARDIOVASCULAR: Regular S1 S2, GI: soft, normoactive bowel sounds, : No Renal angle tenderness; NEURO: Awake; no lateralizing signs. SKIN: No Rash PSYCH; Flat affect Assessment: 1. Acute on chronic hypoxic and hypercapnic respiratory failure 2. Severe pulmonary hypertension 3. COPD with acute exacerbation 4. Chronic A. fib 4. Hypertension 5. Left lower thigh chronic wound 6. Chronic kidney disease stage III 7. Chronic congestive heart failure with preserved ejection fraction 8. Morbid obesity with BMI of 67.8 9. DVT prophylaxis on Coumadin Recommendations: 1. I have discussed the results of my overview and impressions with the patient 2. Options for management were reviewed Charges/Coding Visit Charges Inpatient E&M: 09566 Subs Hosp L3
--- NOTE | 2021-01-25 11:30 | CASEMGMT ---
ARAMIS RICCI completed palliative screening tool for Lace/Strata 3. Patient meets criteria for palliative consult. Hospitalist updated and order received for palliative consult. Referral faxed to [facility] [place] [facility].
--- NOTE | 2021-01-25 13:44 | NURSING ---
This RN called and gave report to ARAMIS Engle in the ICU.
--- NOTE | 2021-01-25 14:38 | CON.PCM.CC_ITS ---
Assessment & Plan Assessment/Plan (1) Acute on chronic respiratory failure with hypoxemia: PLAN: RECOMMENDATIONS: 1. Continue patient on AVAPS and wean FiO2 to maintain oxygen saturations 88- 92%. 2. Continue diuretic therapy as tolerated by hemodynamics and renal function. 3. Continue scheduled bronchodilator therapy and steroids for now. 4. Encourage incentive spirometer use and mobilize patient as tolerated. IMPRESSIONS: 1. Acute on chronic combined respiratory failure Likely multifactorial in etiology with possible untreated obstructive lung disease, untreated STACEY, alveolar hypoventilation secondary to obesity and decompensated heart failure with preserved ejection fraction likely contributing. Prior echocardiogram in July did reveal an ejection fraction of 45%. However, the patient did have moderate global RV systolic dysfunction with a right ventricular systolic pressure estimated to be 79 mmHg. Agree with continuing scheduled bronchodilators and steroids for now. Wean supplemental oxygen as tolerated. For now, the patient will be continued on AVAPS, with FiO2 weaned as tolerated. The patient should ideally be maintained on PAP therapy, at a minimum, with naps and nightly. She would benefit from further outpatient pulmonary optimization after discharge. In the interim, she will be continued on on IV Lasix as ordered. 2. History of obstructive sleep apnea Recommend outpatient pulmonary follow-up so that repeat sleep study can be completed and the patient restarted on nocturnal Pap therapy, as clinically indicated. In the interim, I would recommend empiric utilization of PAP therapy with naps and nightly. 3. RV dysfunction/pulmonary hypertension The patient likely has secondary pulmonary hypertension to a number of different etiologies. Ideally, the patient will require further outpatient testing for optimization. Continue diuretic therapy as tolerated by hemodynamics and renal function. 4. Super morbid obesity/atrial fibrillation with RVR/history of tobacco dependency Complicates care, management, recovery and prognosis. Continue home medications as indicated. TIME: 36 minutes of critical care time, independent of procedures, was spent addressing the patient's acute on chronic combined respiratory failure, review of all data and collaboration with the care team. ([id number]) HPI Consult Data Date of Consult: 01/26/21 HPI Narrative Reason for Consultation: Acute on chronic combined respiratory failure HPI Narrative: The patient is a 60-year-old female, with a history as outlined below, who presented to the emergency department on January 24 with shortness of breath and hypoxemia. In addition, the patient was reportedly hypotensive as well. The patient has a history of chronic hypoxemic respiratory failure with a baseline requirement of 3 L/min. She currently [facility] at a [facility] facility. The patient does have a prior smoking history of upwards of 1.5 packs of cigarettes per day x35 years, having quit completely in 2007. She was previously evaluated by a airconditioning drafting officer in [place] and diagnosed with COPD, but does not currently utilize any inhalers at her baseline. Additionally, the patient was diagnosed with obstructive sleep apnea multiple years ago, but has been noncompliant with the use of nocturnal Pap therapy for at least 2 years. The patient was last admitted to the hospital in December 2019 with acute on chronic combined respiratory failure which was felt to be the consequence of untreated obstructive lung disease, obstructive sleep apnea, alveolar hypoventilation and decompensated heart failure with preserved ejection fraction. On presentation to the emergency department, the patient was noted to be afebrile and hemodynamically stable. She was, nevertheless, tachypneic and hypoxemic. Initial laboratory evaluation revealed no evidence of a leukocy tosis. Coagulation profile revealed an INR of 3.8. Chemistry profile was notable for a chloride of 93, bicarbonate of 41 and creatinine of 1.39. BNP was elevated to 408. Arterial blood gas obtained on BiPAP revealed a pH of 7.35, PCO2 of 70 and PO2 of 25. Chest x-ray demonstrated evidence of cardiomegaly and bilateral pleural effusions. The patient was started on scheduled IV Lasix and maintained on BiPAP. She was initially admitted to the progressive care unit for further management. [facility] Medical History Arthritis Atrial fibrillation Blood clot in vein Carpal tunnel syndrome Chronic pain Congestive heart failure (CHF) Depression DVT (deep venous thrombosis) Former smoker GERD (gastroesophageal reflux disease) History of left heart catheterization (LHC) (~07/20/20) Hyperkalemia Obesity Pulmonary embolism Home Medications acetaminophen 325 mg tablet 650 mg PO BID PRN tab 07/05/19 [History Last Taken Unknown] calcium carb-magnesium carb 250 - 300 mg PO DAILY 07/05/19 [History Last Taken Unknown] cholecalciferol (vitamin D3) 125 mcg (5,000 unit) capsule 5,000 mcg PO DAILY 07/05/19 [History Last Taken 07/17/20] ferrous sulfate 325 mg PO DAILY 11/13/20 [History Last Taken Unknown] vitamin B complex [B Complex-Vitamin B12] 1 tab PO DAILY 11/13/20 [History Last Taken Unknown] metoprolol tartrate 25 mg PO BID 12/17/20 [History Last Taken Unknown] omeprazole 20 mg PO DAILY 12/17/20 [History Last Taken Unknown] warfarin 3 mg PO DAILY 12/17/20 [History Last Taken Unknown] albuterol sulfate 2.5 mg INHALATION Q6H PRN 01/05/21 [History Last Taken Unknown] furosemide [Lasix] 40 mg PO DAILY 01/05/21 [History Last Taken Unknown] magnesium hydroxide [Milk of Magnesia] 30 ml PO DAILY PRN 01/05/21 [History Last Taken Unknown] clonazepam 0.5 mg PO BID 01/24/21 [History Last Taken Unknown] diltiazem HCl 60 mg PO Q12 01/24/21 [History Last Taken Unknown] Allergy/AdvReac Type Severity Reaction Status Date / Time enoxaparin [From Lovenox] Allergy Severe Rash & Verified 01/24/21 10:46 Itching peach Allergy Severe Other Verified 01/24/21 10:46 green tea Allergy Intermediate Itching Verified 01/24/21 10:46 Family History Mother Diabetes High cholesterol Father Diabetes Heart disease Hypertension Sister Diabetes High cholesterol Brother Diabetes Surgical History History of cholecystectomy History of oral surgery Social History Smoking Status: Former smoker alcohol intake: never substance use type: does not use what type of physical activity do you participate in: none ROS Constitutional Constitutional: Denies chills, fatigue or fever(s) Eyes Eyes: Denies blurry vision or change in vision ENT HEENT: Denies dizziness, loss taste/smell or nasal congestion Cardiovascular Cardiovascular: Reports dyspnea and edema Respiratory/Chest Respiratory/Chest: Reports dyspnea and snoring Gastrointestinal Gastrointestinal: Denies abdominal pain, diarrhea, nausea or vomiting Genitourinary Genitourinary: Denies difficulty urinating Musculoskeletal Musculoskeletal: Reports back pain Integumentary Integumentary: Denies lesions or rash Neurologic Neurologic: Denies abnormal gait Psychiatric Psychiatric: Reports anxiety Endocrine Endocrinology: Denies fatigue Hematologic/Lymphatic Hematologic/Lymphatic: Denies easy bleeding or easy bruising Physical Exam Const alert and no apparent distress General Appearance: on BiPAP Nutritional Appearance: morbidly obese HEENT normocephalic and head/scalp atraumatic Eyes PERRL, EOMs intact bilaterally and conjunctivae normal Neck supple General: trachea midline Resp Auscultation: diminished lung sounds; Negative for rales, rhonchi or wheezes Cardio regular rate and regular rhythm GI normal to inspection, nondistended, normoactive bowel sounds Extremity General Extremity: edema bilateral lower extremity; Negative for clubbing Skin General Skin Exam: venous stasis and dermatitis Neuro no focal motor deficits Psych Mood & Affect: flat affect Lab / Micro Data Result Diagrams: 01/25/21 06:06 01/25/21 06:06 Labs: Laboratory Results - last 24 hr 01/25/21 06:06: WBC 5.6, RBC 3.58 L, Hgb 9.2 L, Hct 31.4 L, MCV 87.7, MCH 25.7 L , MCHC 29.3 L, RDW Std Deviation 86.5 H, RDW Coeff of Claudia 27.8 H, Plt Count 270, MPV 10.1, Immature Gran % (Auto) 0.900, Neut % (Auto) 86.3 H, Lymph % (Auto) 11.5 L, [place] % (Auto) 1.3, Eos % (Auto) 0.0, Baso % (Auto) 0.0, Absolute Neuts (auto) 4.8, Absolute Lymphs (auto) 0.64 L, Nucleated RBC % 0, Anisocytosis 2+, Microcytosis 1+, Macrocytosis 1+ 01/25/21 06:06: Sodium 135 L, Potassium 4.1, Chloride 94 L, Carbon Dioxide 37.0 H, Anion Gap 4 L, BUN 34 H, Creatinine 1.25 H, Estim Creat Clear Calc 33.52, Est GFR (MDRD) Af Amer 56 L, Est GFR (MDRD) Non-Af 46 L, BUN/Creatinine Ratio 27.2 H , Glucose 175 H, Calcium 9.0, Total Bilirubin 0.90, AST 14 L, ALT 16, Alkaline Phosphatase 83, Total Protein 6.7, Albumin 2.2 L, Globulin 4.5 H, Albumin /Globulin Ratio 0.5 L 01/25/21 06:06: PT 43.2 H, INR 4.7 H* Micro: Microbiology 01/24/21 10:56 Mucosa - Nose SARS-CoV-2 Antigen (Rapid) - Final Charges/Coding Procedures Hospitalists Procedures: 43923 Critial Care 1st Hr
[2021-01-25] MEDS: Furosemide 20 MG/2 ML VIAL IV (21:06)
--- NOTE | 2021-01-25 21:59 | NURSING ---
1900 pandemic documentation
[2021-01-26] VITALS (33 sets, daily range): BP systolic 82–151; BP diastolic 41–87; PULSE 85–146; RESP 12–26; TEMP 36.6–36.9; O2SAT 89–98
[2021-01-26 03:25] LABS: Prothrombin Time (Protime)PT. 46.1 SECONDS (11.7-14.9)
--- NOTE | 2021-01-26 03:39 | NURSING ---
pt incont of urine and stool. pt pulled up in bed and hover mat placed. legs seeping. bedlinen changed.pt purewick changed. Pt repostion to rt side
[2021-01-26 03:40] LABS: International Normalized Ratio 5.1
[2021-01-26] MEDS: Acetaminophen 325 MG Tablet 650 MG PO (04:17)
[2021-01-26] MEDS: 0.9% Saline Lock 10 ML Syringe IV ×3 (04:17→20:40)
--- NOTE | 2021-01-26 04:45 | CPS ---
Reddening noted underneath duoderm on bridge of nose after patient taken off BiPAP. Does not appear to be open at this time. Will observe to make sure doesn't worsen if patient requires BIPAP again.
[2021-01-26] MEDS: Ipratropium/Albuterol Sulfate 3 ML AMPUL.NEB INHALATION ×4 (06:58→18:53)
--- NOTE | 2021-01-26 07:22 | PN.HOSP_ITS ---
Objective Data Objective Data Vital Signs: Vital Signs Temp Pulse Resp BP Pulse Ox 97.9 F 99 21 H 85/49 L 94 01/26/21 03:00 01/26/21 07:03 01/26/21 07:03 01/26/21 07:00 01/26/21 07:03 Oxygen Flow Rate (L/min) 3 Oxygen Delivery Method Nasal Cannula Weight: 155.6 kg Body Mass Index (BMI) 66.8 Intake & Output: Intake and Output for Last 24 Hours 01/24/21 01/25/21 01/26/21 23:59 23:59 23:59 Intake Total 460 / 460 100 / 100 Output Total 100 / 400 1200 / 1200 200 / 200 Balance -100 / -400 -740 / -740 -100 / -100 Lab / Micro Data Result Diagrams: 01/25/21 06:06 01/25/21 06:06 Labs: Laboratory Results - last 24 hr 01/26/21 03:05: PT 46.1 H, INR 5.1 H* Micro: Microbiology 01/24/21 10:56 Mucosa - Nose SARS-CoV-2 Antigen (Rapid) - Final Assessment & Plan Assessment/Plan (1) CHF (congestive heart failure): QUALIFIERS: Heart failure type: systolic Heart failure chronicity: acute on chronic Qualified Code(s): I50.23 - Acute on chronic systolic (congestive) heart failure (2) Acute respiratory failure with hypoxemia: (3) Pleural effusion: PLAN: 1. Acute on chronic combined respiratory failure secondary to acute on chronic heart failure/possible COPD exacerbation/worsening severe pulmonary hypertension Patient currently on BiPAP, will continue to monitor on continuous pulse ox She was 5 L of oxygen in the long-term with BiPAP ABG shows PCO2 of 70 We will consult pulmonology, breathing treatments, IV Lasix, empiric treatment with Solu-Medrol 2. Acute on chronic heart failure with reduced EF, EF of 45%, RVSP of 79 Patient's admitting BNP appears more than 400 Recently admitted a month ago for similar presentation; was on Lasix drip at that time We will start on 20 mg IV q. 8h on account of relative hypotension; will have a low threshold to switch to Lasix drip May need repeat 2d-ECHO 3. Chronic atrial fibrillation, rate controlled, INR 3.8, Would hold Coumadin tonight, will also hold Cardizem for now on account of relative hypotension Repeat INR in am 4. Hypotension, relative, multifactorial, will hold meds for now 5. Left upper thigh ulcer, 1cm x 2cm, POA, no signs of cellulitis, wound RN consulted 6. Morbid obesity, BMI 66.8, complicates her care Patient is clinically gradually getting worse. She was seen by palliative care in her last admission. Code status - DNR-CCA from long-term
--- NOTE | 2021-01-26 07:48 | PN.CC_ITS ---
Assessment & Plan Assessment/Plan (1) Acute on chronic respiratory failure with hypoxemia: PLAN: RECOMMENDATIONS: 1. Wean supplemental oxygen to maintain saturations 88-92%. 2. Recommend empiric use of AVAPS, at a minimum, with naps and nightly. 3. Continue diuretic therapy as tolerated by hemodynamics and renal function. 4. Continue scheduled bronchodilator therapy and steroids for now. Recommend a 5-day burst of prednisone 40 mg daily at discharge. 5. Encourage incentive spirometer use and mobilize patient as tolerated. 6. The patient should follow-up in the pulmonary medicine clinic 2 weeks after discharge. 7. Will sign off. Please call with any additional questions. IMPRESSIONS: 1. Acute on chronic combined respiratory failure Likely multifactorial in etiology with possible untreated obstructive lung disease, untreated STACEY, alveolar hypoventilation secondary to obesity and decompensated heart failure with preserved ejection fraction likely contributing. Prior echocardiogram in July did reveal an ejection fraction of 45%. However, the patient did have moderate global RV systolic dysfunction with a right ventricular systolic pressure estimated to be 79 mmHg. Agree with continuing scheduled bronchodilators and steroids. Wean supplemental oxygen as tolerated. The patient should ideally be maintained on PAP therapy, at a minimum, with naps and nightly. She would benefit from further outpatient pulm onary optimization after discharge. In the interim, she will be continued on on IV Lasix as ordered. 2. History of obstructive sleep apnea Recommend outpatient pulmonary follow-up so that repeat sleep study can be completed and the patient restarted on nocturnal Pap therapy, as clinically indicated. In the interim, I would recommend empiric utilization of PAP therapy with naps and nightly. 3. RV dysfunction/pulmonary hypertension The patient likely has secondary pulmonary hypertension to a number of different etiologies. Ideally, the patient will require further outpatient testing for optimization. Continue diuretic therapy as tolerated by hemodynamics and renal function. 4. Super morbid obesity/atrial fibrillation with RVR/history of tobacco dependency Complicates care, management, recovery and prognosis. Continue home medications as indicated. This note was generated with datatracker dictation software. It may contain incorrect words, spelling, and punctuation that were not noted in checking the note before signing. Subjective Subjective The patient was seen and examined at the bedside this morning. Events from the last 24 hours have been reviewed. The patient is currently afebrile, hemodynamically stable and maintaining appropriate oxygen saturations on 3 L/min via nasal cannula. The patient is currently documented to be overall net -1 L for the hospital admission. Objective Data Objective Data The patient's most recent lab work, culture data and imaging studies have all been personally reviewed. Surface echocardiogram from July 2020 demonstrated an ejection fraction of 45%. Right ventricular systolic pressure was estimated to be 79 mmHg. Vital Signs: Vital Signs Temp Pulse Resp BP Pulse Ox 97.9 F 107 H 21 H 85/49 L 94 01/26/21 03:00 01/26/21 07:40 01/26/21 07:03 01/26/21 07:00 01/26/21 07:03 Oxygen Flow Rate (L/min) 3 Oxygen Delivery Method Nasal Cannula Weight: 155.6 kg Body Mass Index (BMI) 66.8 Intake & Output: Intake and Output for Last 24 Hours 01/24/21 01/25/21 01/26/21 23:59 23:59 23:59 Intake Total 460 / 460 100 / 100 Output Total 100 / 400 1200 / 1200 200 / 200 Balance -100 / -400 -740 / -740 -100 / -100 Lab / Micro Data Attestation: I reviewed the patient's lab results. Result Diagrams: 01/27/21 05:44 01/27/21 05:44 Labs: Laboratory Results - last 24 hr 01/26/21 03:05: PT 46.1 H, INR 5.1 H* Micro: Microbiology 01/24/21 10:56 Mucosa - Nose SARS-CoV-2 Antigen (Rapid) - Final Physical Exam Const alert and no apparent distress General Appearance: on BiPAP Nutritional Appearance: morbidly obese HEENT normocephalic and head/scalp atraumatic Eyes PERRL, EOMs intact bilaterally and conjunctivae normal Neck supple General: trachea midline Resp Auscultation: diminished lung sounds; Negative for rales, rhonchi or wheezes Cardio regular rate and regular rhythm GI normal to inspection, nondistended, normoactive bowel sounds Extremity General Extremity: edema bilateral lower extremity; Negative for clubbing Skin General Skin Exam: venous stasis and dermatitis Neuro no focal motor deficits Psych Mood & Affect: flat affect Charges/Coding Visit Charges Inpatient E&M: 63771 Subs Hosp L3
[2021-01-26 08:38] LABS: Absolute Lymphocyte Count 0.61 X10^3/uL (0.83-4.51); Absolute Neutrophil Count 10.5 X10^3/uL (2.0-7.7); Basophil# 0.01 X10^3/uL; Basophil% 0.1 % (0-1); Hematocrit 32.7 % (37-47); Hemoglobin 9.8 g/dL (12.0-15.0); Lymphocyte # 0.61 X10^3/ul (0.83-4.51); Lymphocyte % 5.2 % (19-41); Mean Corpuscular Hgb 26.5 pg (27.0-32.0); Mean Corpuscular Volume 88.4 fL (81-99); Monocyte# 0.53 X10^3/uL; Monocyte% 4.5 % (0-10); NRBC Flagged by Analyzer 0 % (0-5); Neutrophil # 10.51 X10^3/uL (2.7-7.7); Neutrophil % 89.5 % (47-70); POSITIVE MORPHOLOGY YES; Platelet Count 272 K/mm3 (150-450); RBC Distribution Width SD 87.9 fl (35.1-43.9); White Blood Count 11.7 K/mm3 (4.4-11.0)
[2021-01-26 08:39] LABS: Differential Indicated SCAN CRITERIA MET
[2021-01-26 08:57] LABS: International Normalized Ratio 5.2; Prothrombin Time (Protime)PT. 46.8 SECONDS (11.7-14.9)
[2021-01-26 08:57] LABS: Anion Gap 3 (5-15); BUN 37 mg/dL (7-18); BUN/Creat Ratio 28.7 RATIO (10-20); Calcium,Total 9.7 mg/dL (8.5-10.1); Chloride 94 mmol/L (98-107); Creatinine, Serum 1.29 mg/dL (0.55-1.02); EST Glomerular Filtration Rate 45 mL/min (>60); Est Glom Filt Rate - Afr Amer 54 mL/min (>60); Estimated Creatinine Clearance 32.48 ml/min; Glucose 136 mg/dL (74-106); Potassium 4.2 mmol/L (3.5-5.1); Sodium Level 139 mmol/L (136-145)
[2021-01-26 09:06] LABS: Anisocytosis 1+
--- NOTE | 2021-01-26 11:55 | CASEMGMT ---
Updates were sent to Annmarie Lowe. Sagrario Philip CHIEF SOLUTION ARCHITECT [employer] WORK SPECIALIST
--- NOTE | 2021-01-26 12:18 | PN.RENAL_ITS ---
Subjective Subjective transferred to ICU for hypercapnea. remains hypotensive, tachycardic. Mentation still slow, off BIPAP. Objective Data Objective Data Vital Signs: Vital Signs Temp Pulse Resp BP Pulse Ox 97.9 F 114 H 25 H 93/70 89 01/26/21 03:00 01/26/21 11:25 01/26/21 11:25 01/26/21 11:00 01/26/21 11:00 Oxygen Flow Rate (L/min) 3 Oxygen Delivery Method Nasal Cannula Weight: 155.6 kg Body Mass Index (BMI) 66.8 Intake & Output: Intake and Output for Last 24 Hours 01/24/21 01/25/21 01/26/21 23:59 23:59 23:59 Intake Total 460 / 460 100 / 100 Output Total 100 / 400 1200 / 1200 200 / 200 Balance -100 / -400 -740 / -740 -100 / -100 Lab / Micro Data Result Diagrams: 01/27/21 05:44 01/27/21 05:44 Labs: Laboratory Results - last 24 hr 01/26/21 03:05: PT 46.1 H, INR 5.1 H* 01/26/21 08:15: WBC 11.7 H, RBC 3.70 L, Hgb 9.8 L, Hct 32.7 L, MCV 88.4, MCH 26.5 L, MCHC 30.0 L, RDW Std Deviation 87.9 H, RDW Coeff of Claudia 29.0 H, Plt Count 272, MPV 10.0, Immature Gran % (Auto) 0.700, Neut % (Auto) 89.5 H, Lymph % (Auto) 5.2 L, [place] % (Auto) 4.5, Eos % (Auto) 0.0, Baso % (Auto) 0.1, Absolute Neuts (auto) 10.5 H, Absolute Lymphs (auto) 0.61 L, Nucleated RBC % 0, Anisoc ytosis 1+ 01/26/21 08:15: Sodium 139, Potassium 4.2, Chloride 94 L, Carbon Dioxide 42.0 H, Anion Gap 3 L, BUN 37 H, Creatinine 1.29 H, Estim Creat Clear Calc 32.48, Est GFR (MDRD) Af Amer 54 L, Est GFR (MDRD) Non-Af 45 L, BUN/Creatinine Ratio 28.7 H , Glucose 136 H, Calcium 9.7 01/26/21 08:33: PT 46.8 H, INR 5.2 H* Micro: Microbiology 01/24/21 10:56 Mucosa - Nose SARS-CoV-2 Antigen (Rapid) - Final Physical Exam Narrative poor historian, follows commands, lethargic Resp Auscultation: rhonchi Cardio Cardio Narrative: tachycardic, afib with rvr GI non-tender and non-distended GI Narrative: obese Palpation: soft Extremity General Extremity: edema bilateral Neuro Neuro Narrative: encephalopathic, somnolent but arrousable Assessment & Plan Assessment/Plan (1) CKD (chronic kidney disease), stage III: PLAN: renal fxn stable, urine output incomplete. (2) Pleural effusion: PLAN: May need thoracentesis since her blood pressure is low which limits the use of diuretic therapy. (3) Acute respiratory failure with hypoxemia: PLAN: transferred to ICU for hypercapnea, MS change (4) Anemia: QUALIFIERS: Anemia type: iron deficiency Iron deficiency anemia type: unspecified iron deficiency Qualified Code(s): D50.9 - Iron deficiency anemia, unspecified PLAN: Hemoglobin 9.2 g (5) Hypotension: PLAN: Consider midodrine (6) Debility: PLAN: ECF patient from [facility]. Chronically bedridden. (7) Acute respiratory failure with hypoxia and hypercarbia: PLAN: pulmonary mgmt (8) Atrial fibrillation with RVR:
--- NOTE | 2021-01-26 13:44 | PCM.PN.HOSP ---
Documented by User: Tony AVILEZ 01/26/21 13:58 Subjective Subjective Patient is a 60-year-old female with resting in bed, alert and orient x3. Patient still has shortness of breath and is having some left leg cramps. Denies chest pain, palpitations, hemoptysis, sputum production, fever, chills, N/V/D. Objective Data Objective Data Vital Signs: Vital Signs Temp Pulse Resp BP Pulse Ox 97.8 F 136 H 22 H 151/74 H 90 01/26/21 13:40 01/26/21 13:40 01/26/21 13:40 01/26/21 13:40 01/26/21 13:40 Oxygen Flow Rate (L/min) 3 Oxygen Delivery Method Nasal Cannula Weight: 343 lb 0.628 oz Body Mass Index (BMI) 66.8 Intake & Output: Intake and Output for Last 24 Hours 01/24/21 01/25/21 01/26/21 23:59 23:59 23:59 Intake Total 460 / 460 400 / 400 Output Total 100 / 400 1200 / 1200 300 / 300 Balance -100 / -400 -740 / -740 100 / 100 Lab / Micro Data Result Diagrams: 01/27/21 05:44 01/27/21 05:44 Labs: Laboratory Results - last 24 hr 01/26/21 03:05: PT 46.1 H, INR 5.1 H* 01/26/21 08:15: WBC 11.7 H, RBC 3.70 L, Hgb 9.8 L, Hct 32.7 L, MCV 88.4, MCH 26.5 L, MCHC 30.0 L, RDW Std Deviation 87.9 H, RDW Coeff of Claudia 29.0 H, Plt Count 272, MPV 10.0, Immature Gran % (Auto) 0.700, Neut % (Auto) 89.5 H, Lymph % (Auto) 5.2 L, [place] % (Auto) 4.5, Eos % (Auto) 0.0, Baso % (Auto) 0.1, Absolute Neuts (auto) 10.5 H, Absolute Lymphs (auto) 0.61 L, Nucleated RBC % 0, Anisocytosis 1+ 01/26/21 08:15: Sodium 139, Potassium 4.2, Chloride 94 L, Carbon Dioxide 42.0 H, Anion Gap 3 L, BUN 37 H, Creatinine 1.29 H, Estim Creat Clear Calc 32.48, Est GFR (MDRD) Af Amer 54 L, Est GFR (MDRD) Non-Af 45 L, BUN/Creatinine Ratio 28.7 H, Glucose 136 H, Calcium 9.7 01/26/21 08:33: PT 46.8 H, INR 5.2 H* Micro: Microbiology 01/24/21 10:50 Blood Culture (Wb) - Left Wrist Blood Culture - Preliminary No growth in 48 hours. 01/24/21 10:56 Mucosa - Nose SARS-CoV-2 Antigen (Rapid) - Final Physical Exam Const alert, oriented x3 and no apparent distress HEENT head/scalp atraumatic and moist oral mucous membranes Head and Scalp: normocephalic Eyes PERRL, EOMs intact bilaterally and conjunctivae normal Neck no lymphadenopathy, supple and no JVD Resp Effort and Inspection: tachypneic, respiratory distress and labored Auscultation: crackles, rales and diminished lung sounds Cardio no JVD Rate: tachycardic GI normal to inspection, nondistended, normoactive bowel sounds, soft to palpation and non-tender Extremity normal to inspection, full ROM and no clubbing, cyanosis or edema Skin no rashes or lesions noted, no wounds, skin turgor normal and no jaundice Neuro CN's II-XII intact bilaterally Psych affect normal Assessment & Plan Assessment/Plan (1) Acute respiratory failure with hypoxia and hypercarbia: (2) Atrial fibrillation with RVR: (3) Hypotension: PLAN: Day 3 Discharge planning: Patient is a resident at [facility] and would like to return there when medically ready. 1) acute on chronic respiratory failure, mixed etiology Nephrology and pulmonology following: Recommend continued diuretics, supplemental oxygen and steroids. Still in respiratory distress, currently satting 95% on BiPAP with an FiO2 of 60. Diuresing this patient has proved difficult as she has also been hypotensive. Pulmonology and nephrology following. Mixed etiology of possible CHF exacerbation, COPD exacerbation and worsening severe pulmonary hypertension. BNP on admission was elevated above 400. Chest x-ray on admission demonstrated stable cardiomegaly with new bilateral pleural effusions. Most recent echocardiogram obtained on 07/26 was limited and only demonstrated a pulmonary artery systolic pressure of 55 mmHg with no comment on LVEF. Plan; remain admitted to PCU for cardiac telemetry monitoring, nephrology and pulmonology following, continue Lasix as tolerated by blood pressure, continue scheduled duo nebs, continue Solu-Medrol, continue BiPAP, O2 per protocol. 2) chronic atrial fibrillation On metoprolol and diltiazem for rate control. Anticoagulated on warfarin. Plan; hold metoprolol and diltiazem due to hypotension, warfarin on hold due to supratherapeutic INR. 3) supratherapeutic INR INR currently 5.2, hold warfarin as above. 4) hypotension Hold hypertensive regimen as above. 5) chronic wound to left lateral thigh Wound care following. 6) morbid obesity Weight is currently 247 pounds with a BMI of 67.8. Complicates care. Weight loss advised. DVT prophylaxis -INR is currently supratherapeutic, home warfarin on hold. Patient seen by Tony Kraft PA-C, under the supervision of Dr. Lyon. Documented by User: Dr. Balbir Lyon MD 01/27/21 10:46 Objective Data Lab / Micro Data Result Diagrams: 01/27/21 05:44 01/27/21 05:44 Assessment & Plan Addt'l Comments This patient was seen in conjunction with Tony Kraft PA-C. I have independently interviewed and examined the patient and reviewed pertinent historical, laboratory, and other data. Please refer to Tony Kraft PA-C's note for details of this patient's presentation, findings, and recommendations. I have reviewed Tony Kraft PA-C's note and concur with documented findings. In brief, patient is a 65 year-old lady morbidly obese with BMI of 67.8 resident of [facility] brought to the emergency department with acute hypoxia 01/26/2021; patient was transferred to the intensive care unit a day prior in view of worsening respiratory status. Patient condition did improve necessitating patient being transferred back to the PCU. Patient diuresis has been been a challenge in view of her low blood pressure. Patient was on Coumadin prior to being admitted INR remains elevated however plan is to observe and trend. No indication for vitamin K at this point Physical Examination: GENERAL: Patient on BiPAP HEENT: Atraumatic; EYES; Anicteric, Normal Conjunctiva NECK; supple, normal thyroid, RESPIRATORY: Diminished to auscultation CARDIOVASCULAR: Regular S1 S2, GI: soft, normoactive bowel sounds, : No Renal angle tenderness; NEURO: Awake; no lateralizing signs. SKIN: No Rash PSYCH; Flat affect Assessment: 1. Acute on chronic hypoxic and hypercapnic respiratory failure 2. Severe pulmonary hypertension 3. COPD with acute exacerbation 4. Chronic A. fib 4. Hypertension 5. Left lower thigh chronic wound 6. Chronic kidney disease stage III 7. Chronic congestive heart failure with preserved ejection fraction 8. Morbid obesity with BMI of 67.8 9. DVT prophylaxis on Coumadin Recommendations: 1. I have discussed the results of my overview and impressions with the patient 2. Options for management were reviewed Charges/Coding Visit Charges Inpatient E&M: 90905 Subs Hosp L2
--- NOTE | 2021-01-26 13:47 | NURSING ---
pts sister gil called to let know of transfer to [facility].
[2021-01-26] MEDS: Pantoprazole Sodium 20 MG Tablet PO (13:48)
[2021-01-26] MEDS: clonazePAM 0.5 MG Tablet PO ×2 (13:48→20:39)
[2021-01-26] MEDS: Furosemide 20 MG/2 ML VIAL IV (13:48)
[2021-01-26] MEDS: Metoprolol Tartrate 25 MG Tablet PO ×2 (13:48→20:39)
[2021-01-26] MEDS: Ferrous Sulfate 325 MG Tablet PO (13:48)
[2021-01-27] VITALS (19 sets, daily range): BP systolic 105–158; BP diastolic 57–98; PULSE 85–131; RESP 12–28; TEMP 36.4–36.8; O2SAT 91–96
[2021-01-27] MEDS: 0.9% Saline Lock 10 ML Syringe IV ×3 (05:11→17:26)
[2021-01-27] MEDS: Furosemide 20 MG/2 ML VIAL IV (05:11)
[2021-01-27 06:05] LABS: Absolute Lymphocyte Count 0.45 X10^3/uL (0.83-4.51); Absolute Neutrophil Count 10.8 X10^3/uL (2.0-7.7); Basophil# 0.01 X10^3/uL; Basophil% 0.1 % (0-1); Hematocrit 32.1 % (37-47); Hemoglobin 9.5 g/dL (12.0-15.0); Lymphocyte # 0.45 X10^3/ul (0.83-4.51); Lymphocyte % 3.8 % (19-41); Mean Corp Hgb Conc 29.6 g/dL (32-36); Mean Corpuscular Hgb 25.9 pg (27.0-32.0); Mean Corpuscular Volume 87.5 fL (81-99); Mean Platelet Vol. 10.2 fl (6.2-12.0); NRBC Flagged by Analyzer 0 % (0-5); Neutrophil # 10.82 X10^3/uL (2.7-7.7); Neutrophil % 90.4 % (47-70); POSITIVE DIFFERENTIAL YES; POSITIVE MORPHOLOGY YES; Platelet Count 254 K/mm3 (150-450); RBC Distribution Width CV 27.9 % (11.6-14.6); Red Blood Count 3.67 M/mm3 (4.2-5.4)
[2021-01-27 06:13] LABS: Differential Indicated SCAN CRITERIA MET
[2021-01-27 06:29] LABS: Anisocytosis 2+; Microcytosis 1+
[2021-01-27 06:30] LABS: Macrocytosis 1+; Target Cells 1+
[2021-01-27 06:43] LABS: Prothrombin Time (Protime)PT. 43.1 SECONDS (11.7-14.9)
[2021-01-27] MEDS: Ipratropium/Albuterol Sulfate 3 ML AMPUL.NEB INHALATION ×4 (06:43→18:59)
[2021-01-27 06:44] LABS: Anion Gap 2 (5-15); BUN 46 mg/dL (7-18); BUN/Creat Ratio 34.3 RATIO (10-20); Calcium,Total 9.5 mg/dL (8.5-10.1); Chloride 95 mmol/L (98-107); Creatinine, Serum 1.34 mg/dL (0.55-1.02); EST Glomerular Filtration Rate 43 mL/min (>60); Est Glom Filt Rate - Afr Amer 52 mL/min (>60); Estimated Creatinine Clearance 31.27 ml/min; Glucose 163 mg/dL (74-106); Magnesium 2.1 mg/dL (1.6-2.6); Potassium 4.3 mmol/L (3.5-5.1); Sodium Level 136 mmol/L (136-145)
[2021-01-27 06:45] LABS: International Normalized Ratio 4.7
[2021-01-27] MEDS: Metoprolol Tartrate 25 MG Tablet PO ×2 (09:07→22:07)
[2021-01-27] MEDS: Menthol/Lanolin/Calamine/Znox 113 GM Tube 1 APPLIC TOPICAL ×2 (09:07→22:07)
[2021-01-27] MEDS: Cholecalciferol (VIT D3) 25 MCG TABLET (1,000 UNITS) 50 MCG PO (09:07)
[2021-01-27] MEDS: Ferrous Sulfate 325 MG Tablet PO (09:07)
[2021-01-27] MEDS: Pantoprazole Sodium 20 MG Tablet PO (09:07)
[2021-01-27] MEDS: clonazePAM 0.5 MG Tablet PO ×2 (09:07→22:14)
--- NOTE | 2021-01-27 10:31 | PN.RENAL_ITS ---
Subjective Subjective transferred to PCU. HR and BP improved. Currently on oxygen via [place] Objective Data Objective Data Vital Signs: Vital Signs Temp Pulse Resp BP Pulse Ox 97.6 F L 106 H 22 H 158/98 H 91 01/27/21 09:00 01/27/21 09:07 01/27/21 09:00 01/27/21 09:00 01/27/21 09:00 Oxygen Flow Rate (L/min) 3 Oxygen Delivery Method Nasal Cannula Weight: 155.7 kg Body Mass Index (BMI) 66.8 Intake & Output: Intake and Output for Last 24 Hours 01/25/21 01/26/21 01/27/21 23:59 23:59 23:59 Intake Total 460 / 460 640 / 640 640 / 640 Output Total 1200 / 1200 300 / 300 100 / 100 Balance -740 / -740 340 / 340 540 / 540 Lab / Micro Data Result Diagrams: 01/27/21 05:44 01/27/21 05:44 Labs: Laboratory Results - last 24 hr 01/27/21 05:44: PT 43.1 H, INR 4.7 H* 01/27/21 05:44: WBC 12.0 H, RBC 3.67 L, Hgb 9.5 L, Hct 32.1 L, MCV 87.5, MCH 25.9 L, MCHC 29.6 L, RDW Std Deviation 86.0 H, RDW Coeff of Claudia 27.9 H, Plt Count 254, MPV 10.2, Immature Gran % (Auto) 0.700, Neut % (Auto) 90.4 H, Lymph % (Auto) 3.8 L, [place] % (Auto) 5.0, Eos % (Auto) 0.0, Baso % (Auto) 0.1, Absolute Neuts (auto) 10.8 H, Absolute Lymphs (auto) 0.45 L, Nucleated RBC % 0, Anisocytosis 2+, Microcytosis 1+, Macrocytosis 1+, Target Cells 1+ 01/27/21 05:44: Sodium 136, Potassium 4.3, Chloride 95 L, Carbon Dioxide 39.0 H, Anion Gap 2 L, BUN 46 H, Creatinine 1.34 H, Estim Creat Clear Calc 31.27, Est GFR (MDRD) Af Amer 52 L, Est GFR (MDRD) Non-Af 43 L, BUN/Creatinine Ratio 34.3 H , Glucose 163 H, Calcium 9.5, Magnesium 2.1 Micro: Microbiology 01/24/21 10:50 Blood Culture (Wb) - Left Wrist Blood Culture - Preliminary No growth in 48 hours. 01/24/21 10:56 Mucosa - Nose SARS-CoV-2 Antigen (Rapid) - Final Physical Exam Const alert Cardio Cardio Narrative: rate controlled GI non-tender and non-distended GI Narrative: obese Palpation: soft Extremity General Extremity: edema bilateral (chronic) Neuro Sensorium / Orientation: awake Psych cooperative Assessment & Plan Assessment/Plan (1) CKD (chronic kidney disease), stage III: PLAN: creatinine 1.34 increase lasix to 40mg bid with improved BP on steroids (2) Pleural effusion: PLAN: May need thoracentesis since her blood pressure is low which limits the use of diuretic therapy. (3) Anemia: QUALIFIERS: Anemia type: iron deficiency Iron deficiency anemia type: unspecified iron deficiency Qualified Code(s): D50.9 - Iron deficiency anemia, unspecified PLAN: Hemoglobin 9.2 g (4) Hypotension: PLAN: improved (5) Debility: PLAN: ECF patient from [facility]. Chronically bedridden. (6) Acute respiratory failure with hypoxia and hypercarbia: PLAN: pulmonary mgmt (7) Atrial fibrillation with RVR:
--- NOTE | 2021-01-27 11:03 | PCM.PN.HOSP ---
Documented by User: Tony AVILEZ 01/27/21 11:22 Subjective Subjective Patient is a 60-year-old female comfortably resting in bed, alert and orient x3. Patient reports improvement of her shortness of breath from admission. Denies chest pain, palpitations, hemoptysis, sputum production, fever, chills, N/V/D. Objective Data Objective Data Vital Signs: Vital Signs Temp Pulse Resp BP Pulse Ox 97.6 F L 106 H 22 H 158/98 H 91 01/27/21 09:00 01/27/21 09:07 01/27/21 09:00 01/27/21 09:00 01/27/21 09:00 Oxygen Flow Rate (L/min) 3 Oxygen Delivery Method Nasal Cannula Weight: 343 lb 4.156 oz Body Mass Index (BMI) 66.8 Intake & Output: Intake and Output for Last 24 Hours 01/25/21 01/26/21 01/27/21 23:59 23:59 23:59 Intake Total 460 / 460 640 / 640 640 / 640 Output Total 1200 / 1200 300 / 300 100 / 100 Balance -740 / -740 340 / 340 540 / 540 Lab / Micro Data Result Diagrams: 01/27/21 05:44 01/27/21 05:44 Labs: Laboratory Results - last 24 hr 01/27/21 05:44: PT 43.1 H, INR 4.7 H* 01/27/21 05:44: WBC 12.0 H, RBC 3.67 L, Hgb 9.5 L, Hct 32.1 L, MCV 87.5, MCH 25.9 L, MCHC 29.6 L, RDW Std Deviation 86.0 H, RDW Coeff of Claudia 27.9 H, Plt Count 254, MPV 10.2, Immature Gran % (Auto) 0.700, Neut % (Auto) 90.4 H, Lymph % (Auto) 3.8 L, [place] % (Auto) 5.0, Eos % (Auto) 0.0, Baso % (Auto) 0.1, Absolute Neuts (auto) 10.8 H, Absolute Lymphs (auto) 0.45 L, Nucleated RBC % 0, Anisocytosis 2+, Microcytosis 1+, Macrocytosis 1+, Target Cells 1+ 01/27/21 05:44: Sodium 136, Potassium 4.3, Chloride 95 L, Carbon Dioxide 39.0 H, Anion Gap 2 L, BUN 46 H, Creatinine 1.34 H, Estim Creat Clear Calc 31.27, Est GFR (MDRD) Af Amer 52 L, Est GFR (MDRD) Non-Af 43 L, BUN/Creatinine Ratio 34.3 H, Glucose 163 H, Calcium 9.5, Magnesium 2.1 Micro: Microbiology 01/24/21 10:50 Blood Culture (Wb) - Left Wrist Blood Culture - Preliminary No growth in 48 hours. 01/24/21 10:56 Mucosa - Nose SARS-CoV-2 Antigen (Rapid) - Final Physical Exam Const alert, oriented x3 and no apparent distress HEENT head/scalp atraumatic and moist oral mucous membranes Head and Scalp: normocephalic Eyes PERRL, EOMs intact bilaterally and conjunctivae normal Neck no lymphadenopathy, supple and no JVD Resp Effort and Inspection: tachypneic and labored Auscultation: crackles and diminished lung sounds Cardio no murmurs and no JVD Rate: tachycardic GI normal to inspection, nondistended, normoactive bowel sounds, soft to palpation and non-tender Extremity normal to inspection, full ROM and no clubbing, cyanosis or edema Skin no rashes or lesions noted, no wounds and skin turgor normal Neuro CN's II-XII intact bilaterally Psych affect normal Assessment & Plan Assessment/Plan (1) Atrial fibrillation with RVR: (2) Acute respiratory failure with hypoxia and hypercarbia: (3) Hypotension: PLAN: Day 4 Discharge planning: Patient is a resident at [facility] and would like to return there when medically ready. 1) acute on chronic respiratory failure, mixed etiology Nephrology and pulmonology following: Recommend continued diuretics, supplemental oxygen and steroids. If diuresis does not completely pull all the fluid off this patient, possible thoracentesis ordered for Monday 01/29. On hold due to supratherapeutic INR. Most recent echocardiogram obtained on 07/26 was limited and only demonstrated a pulmonary artery systolic pressure of 55 mmHg with no comment on LVEF. Plan; remain admitted to PCU for cardiac telemetry monitoring, nephrology and pulmonology following, Lasix changed to 40 mg IV twice daily, continue scheduled duo nebs, continue Solu-Medrol, continue BiPAP, O2 per protocol. 2) chronic atrial fibrillation On metoprolol and diltiazem for rate control. Anticoagulated on warfarin. Plan; hold metoprolol and diltiazem due to hypotension, warfarin on hold due to supratherapeutic INR. 3) supratherapeutic INR INR currently 4.7, hold warfarin as above. 4) hypotension Hold hypertensive regimen as above. 5) chronic wound to left lateral thigh Wound care following. 6) morbid obesity Weight is currently 247 pounds with a BMI of 67.8. Complicates care. Weight loss advised. DVT prophylaxis - INR is currently supratherapeutic, home warfarin on hold. Patient seen by Tony Kraft PA-C, under the supervision of Dr. Lyon Documented by User: Dr. Balbir Lyon MD 01/27/21 11:43 Objective Data Lab / Micro Data Result Diagrams: 01/27/21 05:44 01/27/21 05:44 Assessment & Plan Addt'l Comments This patient was seen in conjunction with Tony Kraft PA-C. I have independently interviewed and examined the patient and reviewed pertinent historical, laboratory, and other data. Please refer to Tony Kraft PA-C's note for details of this patient's presentation, findings, and recommendations. I have reviewed Tony Kraft PA-C's note and concur with documented findings. In brief, patient is a 65 year-old lady morbidly obese with BMI of 67.8 resident of [facility] brought to the emergency department with acute hypoxia 01/26/2021; patient was transferred to the intensive care unit a day prior in view of worsening respiratory status. Patient condition did improve necessitating patient being transferred back to the PCU. Patient diuresis has been been a challenge in view of her low blood pressure. Patient was on Coumadin prior to being admitted INR remains elevated however plan is to observe and trend. No indication for vitamin K at this point 01/27/2021; patient blood pressure improving. This may allow for a little bit more aggressive diuresis compared to previous day. INR still remains elevated however there is no indication for vitamin K Physical Examination: GENERAL: Patient on BiPAP HEENT: Atraumatic; EYES; Anicteric, Normal Conjunctiva NECK; supple, normal thyroid, RESPIRATORY: Diminished to auscultation CARDIOVASCULAR: Regular S1 S2, GI: soft, normoactive bowel sounds, : No Renal angle tenderness; NEURO: Awake; no lateralizing signs. SKIN: No Rash PSYCH; Flat affect Assessment: 1. Acute on chronic hypoxic and hypercapnic respiratory failure 2. Severe pulmonary hypertension 3. COPD with acute exacerbation 4. Chronic A. fib 4. Hypertension 5. Left lower thigh chronic wound 6. Chronic kidney disease stage III 7. Chronic congestive heart failure with preserved ejection fraction 8. Morbid obesity with BMI of 67.8 9. DVT prophylaxis on Coumadin Recommendations: 1. I have discussed the results of my overview and impressions with the patient 2. Options for management were reviewed Charges/Coding Visit Charges Inpatient E&M: 03275 Subs Hosp L2
[2021-01-27] MEDS: Furosemide 40 MG/4 ML Vial IV (17:26)
[2021-01-28] VITALS (20 sets, daily range): BP systolic 98–153; BP diastolic 60–75; PULSE 65–127; RESP 12–28; TEMP 36.1–36.7; O2SAT 90–100
--- NOTE | 2021-01-28 01:20 | NURSING ---
Discussed vsa override vital sign frequency with Magdalene Jones CNP. States q4hrs for the vital signs at this time.
[2021-01-28] MEDS: 0.9% Saline Lock 10 ML Syringe IV ×2 (05:28→21:54)
[2021-01-28 06:25] LABS: Absolute Lymphocyte Count 0.44 X10^3/uL (0.83-4.51); Absolute Neutrophil Count 11.8 X10^3/uL (2.0-7.7); Basophil# 0.02 X10^3/uL; Basophil% 0.2 % (0-1); Hematocrit 31.4 % (37-47); Hemoglobin 9.1 g/dL (12.0-15.0); Lymphocyte # 0.44 X10^3/ul (0.83-4.51); Lymphocyte % 3.4 % (19-41); Mean Corpuscular Hgb 25.1 pg (27.0-32.0); Mean Corpuscular Volume 86.7 fL (81-99); Mean Platelet Vol. 9.9 fl (6.2-12.0); Monocyte# 0.48 X10^3/uL; Monocyte% 3.8 % (0-10); NRBC Flagged by Analyzer 0 % (0-5); Neutrophil # 11.76 X10^3/uL (2.7-7.7); Neutrophil % 91.8 % (47-70); POSITIVE DIFFERENTIAL YES; POSITIVE MORPHOLOGY YES; Platelet Count 201 K/mm3 (150-450); RBC Distribution Width CV 27.8 % (11.6-14.6); RBC Distribution Width SD 87.1 fl (35.1-43.9); Red Blood Count 3.62 M/mm3 (4.2-5.4); White Blood Count 12.8 K/mm3 (4.4-11.0)
[2021-01-28] MEDS: Ipratropium/Albuterol Sulfate 3 ML AMPUL.NEB INHALATION ×3 (06:50→15:16)
[2021-01-28 06:56] LABS: International Normalized Ratio 4.5
[2021-01-28 06:59] LABS: Anion Gap 2 (5-15); BUN 50 mg/dL (7-18); BUN/Creat Ratio 39.1 RATIO (10-20); Calcium,Total 9.3 mg/dL (8.5-10.1); Chloride 94 mmol/L (98-107); Creatinine, Serum 1.28 mg/dL (0.55-1.02); EST Glomerular Filtration Rate 45 mL/min (>60); Est Glom Filt Rate - Afr Amer 54 mL/min (>60); Estimated Creatinine Clearance 32.73 ml/min; Glucose 179 mg/dL (74-106); Sodium Level 137 mmol/L (136-145)
[2021-01-28 07:00] LABS: Differential Indicated SCAN CRITERIA MET
[2021-01-28 07:03] LABS: Anisocytosis 2+
[2021-01-28 07:04] LABS: Target Cells 2+
[2021-01-28] MEDS: Furosemide 40 MG/4 ML Vial IV ×2 (09:45→17:07)
[2021-01-28] MEDS: clonazePAM 0.5 MG Tablet PO ×2 (09:45→21:54)
[2021-01-28] MEDS: Pantoprazole Sodium 20 MG Tablet PO (09:45)
[2021-01-28] MEDS: Metoprolol Tartrate 25 MG Tablet PO ×2 (09:46→22:04)
[2021-01-28] MEDS: Cholecalciferol (VIT D3) 25 MCG TABLET (1,000 UNITS) 50 MCG PO (09:46)
[2021-01-28] MEDS: Menthol/Lanolin/Calamine/Znox 113 GM Tube 1 APPLIC TOPICAL ×2 (09:47→21:55)
[2021-01-28] MEDS: Ferrous Sulfate 325 MG Tablet PO (12:12)
--- NOTE | 2021-01-28 12:15 | PCM.PN.REN ---
Subjective Subjective more alert, awake, complains of thick secretions Objective Data Objective Data Vital Signs: Vital Signs Temp Pulse Resp BP Pulse Ox 97.9 F 116 H 18 153/67 H 97 01/28/21 09:35 01/28/21 09:46 01/28/21 09:35 01/28/21 09:46 01/28/21 09:35 Oxygen Flow Rate (L/min) 3 Oxygen Delivery Method Nasal Cannula Weight: 154 kg Body Mass Index (BMI) 66.8 Intake & Output: Intake and Output for Last 24 Hours 01/26/21 01/27/21 01/28/21 23:59 23:59 23:59 Intake Total 640 / 640 1610 / 1850 720 / 720 Output Total 300 / 300 600 / 900 725 / 725 Balance 340 / 340 1010 / 950 -5 / -5 Lab / Micro Data Result Diagrams: 01/28/21 06:15 01/28/21 06:15 Labs: Laboratory Results - last 24 hr 01/28/21 06:15: PT 42.0 H, INR 4.5 H* 01/28/21 06:15: WBC 12.8 H, RBC 3.62 L, Hgb 9.1 L, Hct 31.4 L, MCV 86.7, MCH 25.1 L, MCHC 29.0 L, RDW Std Deviation 87.1 H, RDW Coeff of Claudia 27.8 H, Plt Count 201, MPV 9.9, Immature Gran % (Auto) 0.800, Neut % (Auto) 91.8 H, Lymph % (Auto) 3.4 L, [place] % (Auto) 3.8, Eos % (Auto) 0.0, Baso % (Auto) 0.2, Absolute Neuts (auto) 11.8 H, Absolute Lymphs (auto) 0.44 L, Nucleated RBC % 0, Anisocytosis 2+, Target Cells 2+ 01/28/21 06:15: Sodium 137, Potassium 4.0, Chloride 94 L, Carbon Dioxide 41.0 H, Anion Gap 2 L, BUN 50 H, Creatinine 1.28 H, Estim Creat Clear Calc 32.73, Est GFR (MDRD) Af Amer 54 L, Est GFR (MDRD) Non-Af 45 L, BUN/Creatinine Ratio 39.1 H, Glucose 179 H, Calcium 9.3 Micro: Microbiology 01/24/21 16:12 Blood Culture (Wb) - Chest Blood Culture - Preliminary No growth in 48 hours. 01/24/21 10:50 Blood Culture (Wb) - Left Wrist Blood Culture - Preliminary No growth in 48 hours. 01/24/21 10:56 Mucosa - Nose SARS-CoV-2 Antigen (Rapid) - Final Physical Exam Narrative poor historian, follows commands, lethargic Const alert, oriented x3 and no apparent distress Resp Resp Narrative: crackles left lung anteriorly Auscultation: rhonchi Cardio Cardio Narrative: afib GI non-tender and non-distended GI Narrative: obese Auscultation: normoactive bowel sounds Palpation: soft Extremity General Extremity: edema bilateral Neuro Neuro Narrative: encephalopathic, somnolent but arrousable Sensorium / Orientation: awake and alert Psych cooperative Assessment & Plan Assessment/Plan (1) CKD (chronic kidney disease), stage III: PLAN: renal fxn stable, continue iv lasix (2) Pleural effusion: PLAN: May need thoracentesis since her blood pressure is low which limits the use of diuretic therapy. (3) Acute respiratory failure with hypoxemia: PLAN: transferred to PCU yesterday (4) Anemia: QUALIFIERS: Anemia type: iron deficiency Iron deficiency anemia type: unspecified iron deficiency Qualified Code(s): D50.9 - Iron deficiency anemia, unspecified PLAN: Hemoglobin 9.1 g (5) Hypotension: PLAN: stable (6) Debility: PLAN: ECF patient from [facility]. Chronically bedridden. (7) Acute respiratory failure with hypoxia and hypercarbia: PLAN: pulmonary mgmt (8) Atrial fibrillation with RVR: PLAN: rate controlled
--- NOTE | 2021-01-28 14:57 | PN.HOSP_ITS ---
Documented by User: Amanda Stovall NP, TACTICAL/MOBILE WATCH OFFICER-C 01/28/21 15:16 Subjective Subjective Patient seen and examined. Complains of harsh cough, nonproductive. Denies increased shortness of breath. Denies fever, chills. Denies other symptoms or complaints. Objective Data Objective Data Vital Signs: Vital Signs Temp Pulse Resp BP Pulse Ox 98.1 F 120 H 18 125/68 H 93 01/28/21 13:15 01/28/21 13:15 01/28/21 13:15 01/28/21 13:15 01/28/21 13:15 Oxygen Flow Rate (L/min) 3 Oxygen Delivery Method Nasal Cannula Weight: 339 lb 8.19 oz Body Mass Index (BMI) 66.8 Intake & Output: Intake and Output for Last 24 Hours 01/26/21 01/27/21 01/28/21 23:59 23:59 23:59 Intake Total 640 / 640 1610 / 1850 720 / 720 Output Total 300 / 300 600 / 900 725 / 725 Balance 340 / 340 1010 / 950 -5 / -5 Lab / Micro Data Result Diagrams: 01/28/21 06:15 01/28/21 06:15 Labs: Laboratory Results - last 24 hr 01/28/21 06:15: PT 42.0 H, INR 4.5 H* 01/28/21 06:15: WBC 12.8 H, RBC 3.62 L, Hgb 9.1 L, Hct 31.4 L, MCV 86.7, MCH 25.1 L, MCHC 29.0 L, RDW Std Deviation 87.1 H, RDW Coeff of Claudia 27.8 H, Plt Count 201, MPV 9.9, Immature Gran % (Auto) 0.800, Neut % (Auto) 91.8 H, Lymph % (Auto) 3.4 L, [place] % (Auto) 3.8, Eos % (Auto) 0.0, Baso % (Auto) 0.2, Absolute Neuts (auto) 11.8 H, Absolute Lymphs (auto) 0.44 L, Nucleated RBC % 0, Anisocytosis 2+, Target Cells 2+ 01/28/21 06:15: Sodium 137, Potassium 4.0, Chloride 94 L, Carbon Dioxide 41.0 H, Anion Gap 2 L, BUN 50 H, Creatinine 1.28 H, Estim Creat Clear Calc 32.73, Est GFR (MDRD) Af Amer 54 L, Est GFR (MDRD) Non-Af 45 L, BUN/Creatinine Ratio 39.1 H , Glucose 179 H, Calcium 9.3 Micro: Microbiology 01/24/21 16:12 Blood Culture (Wb) - Chest Blood Culture - Preliminary No growth in 48 hours. 01/24/21 10:50 Blood Culture (Wb) - Left Wrist Blood Culture - Preliminary No growth in 48 hours. 01/24/21 10:56 Mucosa - Nose SARS-CoV-2 Antigen (Rapid) - Final Physical Exam Const alert, oriented x3 and no apparent distress Orientation / Consciousness: awake, oriented to person, oriented to place and oriented to time HEENT normocephalic and moist oral mucous membranes Eyes PERRL, EOMs intact bilaterally and conjunctivae normal Neck no lymphadenopathy Resp Auscultation: diminished lung sounds and other Coarse breath sounds throughout Cardio regular rate, regular rhythm and no murmurs Peripheral Pulses: pulses 2+ throughout GI normal to inspection, nondistended, normoactive bowel sounds, non-tender and non-distended Extremity normal to inspection General Extremity: edema bilateral lower extremity Details: moderate Skin no rashes or lesions noted Lesions: no lesions Rashes: no rashes Trauma: no lacerations or abrasions Neuro CN's II-XII intact bilaterally, no focal motor deficits, no sensory deficits noted and deep tendon reflexes 2+ bilaterally Psych mental status grossly normal and affect normal Assessment & Plan Assessment/Plan (1) Acute respiratory failure with hypoxia and hypercarbia: PLAN: 1. Acute on chronic hypoxic and hypercarbic respiratory failure, multifactorial secondary to acute asthma exacerbation, hypoventilation secondary to obesity and acute on chronic heart failure with preserved ejection fraction- continue supplement oxygen to maintain O2 at above 90%. Continue BiPAP nightly. Pulmonary medicine following. 2. Acute asthma exacerbation-IV Solu-Medrol, albuterol DuoNeb aerosols. Covid negative. 3. Acute on chronic heart failure with preserved ejection fraction- echocardiogram July 2020 demonstrated an EF of 45%, moderate tricuspid valve insufficiency, mild global left ventricular systolic dysfunction. IV Lasix. Strict I&O. Chest x-ray 01/24/2021 with bilateral pleural effusions. Will repeat chest x-ray, consider paracentesis if significant effusion. 4. Acute kidney injury on chronic kidney disease stage IIIa- stable, trend BMP. 5. Chronic microcytic anemia/iron deficiency-stable, trend CBC 6. STACEY-continue PAP regimen nightly. 7. Paroxysmal atrial fibrillation-on Cardizem, metoprolol. Coumadin on hold due to supratherapeutic INR. 8. Hypertension-stable, continue current regimen. 9. Hyperlipidemia-not on regimen. 10. Morbid obesity-encouraged diet and lifestyle modifications. 11. GERD-continue PPI. 12. Chronic left thigh wound-noninfected. Wound RN consulted. DVT prophylaxis-SCDs, Coumadin on hold This patient was seen by ROCKY Montano under the supervision of Dr. Esparza. Documented by User: Dr. Christiano Esparza MD 01/28/21 18:03 Subjective Subjective Patient is not short of breath. Repeat chest x-ray shows underlying pulmonary congestion but no appreciable effusion. Objective Data Lab / Micro Data Result Diagrams: 01/28/21 06:15 01/28/21 06:15 Physical Exam Narrative General: Alert, Oriented x3, Cooperative HEENT: Atraumatic, PERRLA, EOMI, Normocephalic Oral: No Gingival or Mucosal Lesions/ Ulcerations Neck: Supple, No JVD, Negative Carotid Bruits Lungs: Air entry diminished in bilateral lung bases. No crepitation/rhonchi. Cardiovascular: Regular rate, Regular Rhythm, Normal S1, Normal S2, No murmurs Abdomen: Bowel Sounds Present, Soft, Non Tender, Non-Distended : No renal angle tenderness. No suprapubic tenderness. Extremities: No edema, Capillary Refill Less than 3 Seconds Skin: No rashes, No breakdown Musculoskeletal: No Tenderness to Palpation of Joints or Extremities Neurological: Cranial nerves II-XII grossly intact, DTR 2+/4 and Symmetrical, Neuro grossly intact Psych/Mental Status: Normal Affect, Appropriate. Assessment & Plan Assessment/Plan (1) Atrial fibrillation with RVR: PLAN: This patient was seen in conjunction with Amanda PEÑA. I have independently interviewed and examined the patient and reviewed pertinent history, examination findings, laboratory and plan of management. I have reviewed the note and agree with the documented findings with the few additional points. In brief, patient is admitted for acute on chronic combined respiratory failure, multifactorial including CHF exacerbation/asthma exacerbation: Repeat chest x- ray does not show appreciable effusion therefore previous effusion cleared with Lasix. 2D echo in July shows EF 45%. Acute kidney on CKD stage III, is being comanaged by social work assistant. Paroxysmal A. fib on Coumadin. INR supr atherapeutic. Other comorbidities as mentioned above I have discussed my assessment with TACTICAL/MOBILE WATCH OFFICERAmanda and orders have been reviewed. Charges/Coding Visit Charges Inpatient E&M: 02010 Subs Hosp L2
--- NOTE | 2021-01-28 15:15 | RAD_ITS ---
STUDY: X-RAY CHEST REASON FOR EXAM: Female, 60 years old. hypoxia TECHNIQUE: PA and lateral COMPARISON: 01/24/2021 FINDINGS: There is diffuse interstitial thickening seen bilaterally more pronounced in the lower lobes with mild diffuse groundglass opacity most severe in the lower lobes suspicious for atypical viral pneumonia . Blunted costophrenic sulci possibly representing tiny effusions. Heart is enlarged. Normal mediastinum and anay. Normal visualized pulmonary arteries. Normal visualized aortic arch and descending thoracic aorta. Normal visualized thoracic spine. Normal visualized ribs, clavicles, and shoulders. Large intrathoracic hiatal hernia is noted. There is no demonstrated abnormality of the visualized soft tissue structures of the upper abdomen. There is improved aeration in the right lower lobe when compared with previous exam. RAD/Chest PA and Lateral IMPRESSION: Findings suspicious for changes of Covid 19 pneumonia however cannot exclude coexisting or underlying pulmonary vascular congestion.. Clinical correlation recommended Electronically Signed: Andrés Hogan MD at 16:23 EDT , Service support ,
--- NOTE | 2021-01-28 19:13 | CT_ITS ---
STUDY: CTA CHEST REASON FOR EXAM: Female, 60 years old. hypoxia -- await covid results prior to imaging RADIATION DOSAGE (If Supplied By Facility): CTDIvol = ( 17.41 ) mGy, DLP = ( 430.91 ) mGycm TECHNIQUE: The examination was performed with the intravenous administration of IV 100mL Isovue-370. Post-processing of the angiographic images was performed, with multiplanar reformation and 3D reconstruction. Individualized dose optimization techniques were used for this CT. COMPARISON: AP portable chest 01/28/2021 FINDINGS: Normal enhancement of the main pulmonary artery and right and left pulmonary arteries. Interlobar segmental and proximal to mid subsegmental vessels are well visualized without evidence for clot. More distal subsegmental vessels are not as well visualized however there is no definitive evidence for thrombus.. Atherosclerotic changes of the aorta without evidence for aneurysm. There is no demonstrated aortic dissection. The heart is enlarged is mild coronary artery calcification.. Normal mediastinum. Normal hilar regions. Normal visualized trachea and bronchi. The lungs are well expanded. Mild diffuse generalized interstitial thickening with mild diffuse increased density likely representing pulmonary interstitial edema. There are bilateral pleural effusions and consolidation of the lower lobes.. Normal chest wall structures. Dorsal spine demonstrates degenerative changes. Large intrathoracic hiatal hernia is noted. Normal visualized upper abdomen. CT/CTA Chest W/WO Contrast IMPRESSION: Probable mild pulmonary interstitial edema with bilateral pleural effusions and consolidation of the lower lobes. Cannot definitively exclude coexisting pneumonia. No definitive evidence for pulmonary embolus However if strong clinical suspicion for pulmonary embolus DOPPLER scan of the deep venous system of lower extremities recommended Electronically Signed: Andrés Hogan MD at 22:00 EDT , Service support ,
[2021-01-28 21:59] LABS: Probe Check PASS; Specimen Processing Control PASS
[2021-01-28] MEDS: guaiFENesin 600 MG Tablet PO (21:59)
[2021-01-28] MEDS: Albuterol 2.5 MG/3 ML VIAL.NEB. INHALATION (23:44)
[2021-01-29] VITALS (17 sets, daily range): BP systolic 87–130; BP diastolic 45–74; PULSE 90–142; RESP 12–28; TEMP 36.5–37.1; O2SAT 91–96
--- NOTE | 2021-01-29 01:58 | CPS ---
Patient's EPAP decreased to 8 for low tidal volumes observed. Increased PS by decreasing the EPAP to / min and max pressures.
[2021-01-29] MEDS: 0.9% Saline Lock 10 ML Syringe IV ×4 (05:19→20:14)
[2021-01-29 06:51] LABS: Absolute Lymphocyte Count 0.53 X10^3/uL (0.83-4.51); Absolute Neutrophil Count 13.4 X10^3/uL (2.0-7.7); Basophil# 0.03 X10^3/uL; Basophil% 0.2 % (0-1); Hematocrit 32.5 % (37-47); Hemoglobin 9.6 g/dL (12.0-15.0); Lymphocyte # 0.53 X10^3/ul (0.83-4.51); Lymphocyte % 3.7 % (19-41); Mean Corp Hgb Conc 29.5 g/dL (32-36); Mean Corpuscular Volume 88.1 fL (81-99); Mean Platelet Vol. 10.5 fl (6.2-12.0); Monocyte# 0.46 X10^3/uL; Monocyte% 3.2 % (0-10); NRBC Flagged by Analyzer 0 % (0-5); Neutrophil # 13.35 X10^3/uL (2.7-7.7); Neutrophil % 91.9 % (47-70); POSITIVE DIFFERENTIAL YES; POSITIVE MORPHOLOGY YES; Platelet Count 181 K/mm3 (150-450); RBC Distribution Width CV 27.8 % (11.6-14.6); RBC Distribution Width SD 85.9 fl (35.1-43.9); Red Blood Count 3.69 M/mm3 (4.2-5.4); White Blood Count 14.5 K/mm3 (4.4-11.0)
[2021-01-29 06:58] LABS: Differential Indicated SCAN CRITERIA MET
[2021-01-29 07:01] LABS: International Normalized Ratio 3.8; Prothrombin Time (Protime)PT. 36.4 SECONDS (11.7-14.9)
[2021-01-29] MEDS: Ipratropium/Albuterol Sulfate 3 ML AMPUL.NEB INHALATION ×3 (07:03→14:26)
[2021-01-29 07:20] LABS: Anion Gap 4 (5-15); BUN 53 mg/dL (7-18); BUN/Creat Ratio 43.8 RATIO (10-20); Calcium,Total 9.1 mg/dL (8.5-10.1); Chloride 94 mmol/L (98-107); Creatinine, Serum 1.21 mg/dL (0.55-1.02); EST Glomerular Filtration Rate 48 mL/min (>60); Est Glom Filt Rate - Afr Amer 58 mL/min (>60); Estimated Creatinine Clearance 34.63 ml/min; Glucose 191 mg/dL (74-106); Potassium 3.9 mmol/L (3.5-5.1); Sodium Level 137 mmol/L (136-145)
[2021-01-29] MEDS: Pantoprazole Sodium 20 MG Tablet PO (08:05)
[2021-01-29] MEDS: Ferrous Sulfate 325 MG Tablet PO (08:05)
[2021-01-29] MEDS: guaiFENesin 600 MG Tablet PO ×2 (08:05→20:14)
[2021-01-29] MEDS: Cholecalciferol (VIT D3) 25 MCG TABLET (1,000 UNITS) 50 MCG PO (08:05)
[2021-01-29] MEDS: Metoprolol Tartrate 25 MG Tablet PO ×2 (08:06→20:14)
[2021-01-29] MEDS: clonazePAM 0.5 MG Tablet PO ×2 (08:08→20:17)
[2021-01-29] MEDS: Furosemide 40 MG/4 ML Vial IV ×2 (08:08→17:47)
[2021-01-29] MEDS: Menthol/Lanolin/Calamine/Znox 113 GM Tube 1 APPLIC TOPICAL ×2 (08:08→20:14)
[2021-01-29] MEDS: Azithromycin 250 MG Tablet 500 MG PO (12:10)
--- NOTE | 2021-01-29 12:56 | PCM.PN.HOSP ---
Documented by User: Amanda Stovall NP, CONDITIONING MACHINE OPERATOR-C 01/29/21 13:09 Subjective Subjective Patient seen and examined. Reports intermittent chills. Denies fever. Continued nonproductive cough. Denies worsening shortness of breath. Objective Data Objective Data Vital Signs: Vital Signs Temp Pulse Resp BP Pulse Ox 97.7 F L 90 20 H 90/68 96 01/29/21 05:12 01/29/21 08:06 01/29/21 07:04 01/29/21 08:06 01/29/21 05:12 Oxygen Flow Rate (L/min) 3 Oxygen Delivery Method Nasal Cannula Weight: 350 lb 8.56 oz Body Mass Index (BMI) 66.8 Intake & Output: Intake and Output for Last 24 Hours 01/27/21 01/28/21 01/29/21 23:59 23:59 23:59 Intake Total 1610 / 1850 1440 / 1640 390 / 390 Output Total 600 / 900 1075 / 1075 Balance 1010 / 950 365 / 565 390 / 390 Lab / Micro Data Result Diagrams: 01/29/21 05:35 01/29/21 05:35 Labs: Laboratory Results - last 24 hr 01/28/21 20:39: COVID-19 (OLINDA) Negative 01/29/21 05:35: PT 36.4 H, INR 3.8 01/29/21 05:35: WBC 14.5 H, RBC 3.69 L, Hgb 9.6 L, Hct 32.5 L, MCV 88.1, MCH 26.0 L, MCHC 29.5 L, RDW Std Deviation 85.9 H, RDW Coeff of Claudia 27.8 H, Plt Count 181, MPV 10.5, Immature Gran % (Auto) 1.000 H, Neut % (Auto) 91.9 H, Lymph % (Auto) 3.7 L, [place] % (Auto) 3.2, Eos % (Auto) 0.0, Baso % (Auto) 0.2, Absolute Neuts (auto) 13.4 H, Absolute Lymphs (auto) 0.53 L, Nucleated RBC % 0 01/29/21 05:35: Sodium 137, Potassium 3.9, Chloride 94 L, Carbon Dioxide 39.0 H, Anion Gap 4 L, BUN 53 H, Creatinine 1.21 H, Estim Creat Clear Calc 34.63, Est GFR (MDRD) Af Amer 58 L, Est GFR (MDRD) Non-Af 48 L, BUN/Creatinine Ratio 43.8 H, Glucose 191 H, Calcium 9.1 Micro: Microbiology 01/24/21 10:50 Blood Culture (Wb) - Left Wrist Blood Culture - Final No growth in 5 days. 01/24/21 16:12 Blood Culture (Wb) - Chest Blood Culture - Preliminary No growth in 48 hours. 01/24/21 10:56 Mucosa - Nose SARS-CoV-2 Antigen (Rapid) - Final Radiography Diagnostic Testing: Radiology Impression Chest X-Ray 01/28/21 15:15 IMPRESSION: Findings suspicious for changes of Covid 19 pneumonia however cannot exclude coexisting or underlying pulmonary vascular congestion.. Clinical correlation recommended Electronically Signed: Andrés Hogan MD at 16:23 EDT , Service support , Chest CTA 01/28/21 19:13 IMPRESSION: Probable mild pulmonary interstitial edema with bilateral pleural effusions and consolidation of the lower lobes. Cannot definitively exclude coexisting pneumonia. No definitive evidence for pulmonary embolus However if strong clinical suspicion for pulmonary embolus DOPPLER scan of the deep venous system of lower extremities recommended Electronically Signed: Andrés Hogan MD at 22:00 EDT , Service support , Physical Exam Const alert, oriented x3 and no apparent distress Orientation / Consciousness: awake, oriented to person, oriented to place and oriented to time HEENT normocephalic and moist oral mucous membranes Eyes PERRL, EOMs intact bilaterally and conjunctivae normal Neck no lymphadenopathy Resp clear to auscultation bilaterally Auscultation: diminished lung sounds Cardio regular rate, regular rhythm and no murmurs Peripheral Pulses: pulses 2+ throughout GI normal to inspection, nondistended, normoactive bowel sounds, non-tender and non-distended Extremity normal to inspection General Extremity: edema bilateral lower extremity (Chronic) Details: moderate Skin no rashes or lesions noted Lesions: no lesions Rashes: no rashes Trauma: no lacerations or abrasions Neuro CN's II-XII intact bilaterally, no focal motor deficits, no sensory deficits noted and deep tendon reflexes 2+ bilaterally Psych mental status grossly normal and affect normal Assessment & Plan Assessment/Plan (1) Acute respiratory failure with hypoxia and hypercarbia: PLAN: 1. Acute on chronic hypoxic and hypercarbic respiratory failure, multifactorial secondary to acute asthma exacerbation, suspected bilateral lower lobe pneumonia, hypoventilation secondary to obesity and acute on chronic heart failure with preserved ejection fraction-continue supplement oxygen to maintain O2 at above 90%. Continue BiPAP nightly. Pulmonary medicine following. 2. Acute asthma exacerbation-IV Solu-Medrol, albuterol DuoNeb aerosols. Covid negative. Respiratory panel pending. 3. Acute on chronic heart failure with preserved ejection fraction-echocardiogram July 2020 demonstrated an EF of 45%, moderate tricuspid valve insufficiency, mild global left ventricular systolic dysfunction. IV Lasix. Strict I&O. Chest x-ray 01/24/2021 with bilateral pleural effusions. Repeat CTA shows mild pulmonary interstitial edema with bilateral pleural effusions and consolidation of the lower lobes, possible coexisting pneumonia. No evidence of PE. No indication for thoracentesis at this time. 4. Suspected bilateral lower lobe pneumonia-CTA demonstrates evidence of bilateral lower lobe consolidation/pneumonia. Initiated on azithromycin and Rocephin, plan for 7-day course of antibiotics. 5. Acute kidney injury on chronic kidney disease stage IIIa- stable, trend BMP. Acute kidney injury resolved 6. Chronic microcytic anemia/iron deficiency-stable, trend CBC 7. STACEY-continue PAP regimen nightly. 8. Paroxysmal atrial fibrillation-on Cardizem, metoprolol. Coumadin held due to supratherapeutic INR. INR now 3.8. 9. Hypertension-stable, continue current regimen. 10. Hyperlipidemia-not on regimen. 11. Morbid obesity-encouraged diet and lifestyle modifications. 12. GERD-continue PPI. 13. Chronic left thigh wound-noninfected. Wound RN consulted. DVT prophylaxis-SCDs, Coumadin on hold Discharge plan: Return to SNF when medically stable. Anticipate DC over the weekend. This patient was seen by ROCKY Montano under the supervision of Dr. Esparza. Documented by User: Dr. Christiano Esparza MD 01/29/21 16:28 Objective Data Lab / Micro Data Result Diagrams: 01/29/21 05:35 01/29/21 05:35 Physical Exam Narrative General: Alert, Oriented x3, Cooperative HEENT: Atraumatic, PERRLA, EOMI, Normocephalic Oral: No Gingival or Mucosal Lesions/ Ulcerations Neck: Supple, No JVD, Negative Carotid Bruits Lungs: Air entry diminished in bilateral lung bases. No crepitation/rhonchi. Cardiovascular: Regular rate, Regular Rhythm, Normal S1, Normal S2, No murmurs Abdomen: Bowel Sounds Present, Soft, Non Tender, Non-Distended : No renal angle tenderness. No suprapubic tenderness. Extremities: Bilateral thigh edema/fat, Capillary Refill Less than 3 Seconds Skin: No rashes, No breakdown Musculoskeletal: No Tenderness to Palpation of Joints or Extremities Neurological: Cranial nerves II-XII grossly intact, DTR 2+/4 and Symmetrical, Neuro grossly intact Psych/Mental Status: Normal Affect, Appropriate. Assessment & Plan Assessment/Plan (1) Acute respiratory failure with hypoxia and hypercarbia: PLAN: This patient was seen in conjunction with CONDITIONING MACHINE OPERATORAmanda. I have independently interviewed and examined the patient and reviewed pertinent history, examination findings, laboratory and plan of management. I have reviewed the note and agree with the documented findings with the few additional points. In brief, patient is admitted for acute on chronic combined respiratory failure, multifactorial including acute on chronic combined systolic and diastolic heart failure/asthma exacerbation: Repeat chest x-ray does not show appreciable effusion therefore previous effusion cleared with Lasix. 2D echo in July shows EF 45%. Acute kidney on CKD stage III, is being comanaged by lead pressman [employer]. Paroxysmal A. fib on Coumadin. INR supratherapeutic. CTA chest shows evidence of bilateral lower lobe pneumonia therefore started on Rocephin and Zithromax as Levaquin will further increase INR. Other comorbidities as mentioned above I have discussed my assessment with CONDITIONING MACHINE OPERATORAmanda and orders have been reviewed. Charges/Coding Visit Charges Inpatient E&M: 26974 Subs Hosp L2
--- NOTE | 2021-01-29 13:38 | CASEMGMT ---
SW spoke with patient and did confirm her plan is to return to [facility]. She would like her daughter Aleisa to be notified when she leaves. PHIL notified Annmarie with [facility] that patient will likely be returning over the weekend. Green sheet placed on patient's chart. Plan: d/c back to [facility] when ready. Sagrario Philip MSW OLGA
--- NOTE | 2021-01-29 16:53 | NURSING ---
pt hr 130's after laying flat and rolling side to side for bed change. will monitor.
--- NOTE | 2021-01-29 20:18 | NURSING ---
Meds given early d/t high HR
[2021-01-30] VITALS (13 sets, daily range): BP systolic 101–127; BP diastolic 68–109; PULSE 92–120; RESP 12–26; TEMP 35.8–36.7; O2SAT 92–98
[2021-01-30] MEDS: 0.9% Saline Lock 10 ML Syringe IV (05:05)
[2021-01-30 06:35] LABS: Absolute Lymphocyte Count 0.56 X10^3/uL (0.83-4.51); Absolute Neutrophil Count 14.4 X10^3/uL (2.0-7.7); Basophil# 0.03 X10^3/uL; Basophil% 0.2 % (0-1); Hemoglobin 8.8 g/dL (12.0-15.0); Lymphocyte # 0.56 X10^3/ul (0.83-4.51); Lymphocyte % 3.6 % (19-41); Mean Corp Hgb Conc 28.4 g/dL (32-36); Mean Corpuscular Hgb 25.4 pg (27.0-32.0); Mean Corpuscular Volume 89.3 fL (81-99); Mean Platelet Vol. 10.5 fl (6.2-12.0); Monocyte# 0.41 X10^3/uL; Monocyte% 2.6 % (0-10); NRBC Flagged by Analyzer 0.1 % (0-5); Neutrophil # 14.37 X10^3/uL (2.7-7.7); Neutrophil % 92.7 % (47-70); POSITIVE DIFFERENTIAL YES; POSITIVE MORPHOLOGY YES; Platelet Count 171 K/mm3 (150-450); RBC Distribution Width CV 27.4 % (11.6-14.6); RBC Distribution Width SD 88.9 fl (35.1-43.9); Red Blood Count 3.47 M/mm3 (4.2-5.4); White Blood Count 15.5 K/mm3 (4.4-11.0)
[2021-01-30 06:38] LABS: Differential Indicated SCAN CRITERIA MET
[2021-01-30 07:01] LABS: Anion Gap 3 (5-15); BUN 63 mg/dL (7-18); BUN/Creat Ratio 57.8 RATIO (10-20); Calcium,Total 9.1 mg/dL (8.5-10.1); Chloride 94 mmol/L (98-107); Creatinine, Serum 1.09 mg/dL (0.55-1.02); EST Glomerular Filtration Rate 54 mL/min (>60); Est Glom Filt Rate - Afr Amer 65 mL/min (>60); Estimated Creatinine Clearance 38.44 ml/min; Glucose 217 mg/dL (74-106); Potassium 3.9 mmol/L (3.5-5.1); Sodium Level 137 mmol/L (136-145)
[2021-01-30 07:06] LABS: Differential Comment SCANNED; Target Cells 1+
[2021-01-30] MEDS: Ipratropium/Albuterol Sulfate 3 ML AMPUL.NEB INHALATION ×4 (07:06→19:19)
[2021-01-30 07:08] LABS: Anisocytosis 2+
[2021-01-30 07:09] LABS: Microcytosis 1+
[2021-01-30] MEDS: Cholecalciferol (VIT D3) 25 MCG TABLET (1,000 UNITS) 50 MCG PO (09:11)
[2021-01-30] MEDS: Azithromycin 250 MG Tablet 500 MG PO (09:12)
[2021-01-30] MEDS: Pantoprazole Sodium 20 MG Tablet PO (09:12)
[2021-01-30] MEDS: Menthol/Lanolin/Calamine/Znox 113 GM Tube 1 APPLIC TOPICAL (09:12)
[2021-01-30] MEDS: guaiFENesin 600 MG Tablet PO (09:12)
[2021-01-30] MEDS: Metoprolol Tartrate 25 MG Tablet PO (09:12)
[2021-01-30] MEDS: Furosemide 40 MG/4 ML Vial IV (09:13)
[2021-01-30] MEDS: clonazePAM 0.5 MG Tablet PO (09:16)
--- NOTE | 2021-01-30 13:37 | PCM.TXEXTCAR ---
Diet 01/24/21 12:46 Diet: Cardiac - Heart Healthy Food consistency:: Regular Liquid Consistency:: Regular/Thin Dietary Modifications:: Sodium Restricted Type of Dietary Supplement:: Kurt Fluid restriction:: 1500 mL Diet Comments: Kurt BID w/ lunch and dinner; allergic to green tea and peach Routine Orders/Code Status Enema Type: Fleetz Enema Frequency: Daily PRN Suppository Type: Dulcolax 10mg Suppository Frequency: Daily PRN O2 Liters per Minute: 3-6 O2 Frequency: Continuous Keep PO Greater than or Equal to (%): 90 Routine Lab Work: - (Weekly CBC, BMP, INR) Code Status: DNRCC-A (With intubation) Wound(s) rt hip: Wound Type: open area left lateral thigh/hip: Wound Type: nonhealing wound Dressing Change: AntiMicrobial (Aquacel AG, etc) Gerneralized: Wound Type: scattered open areas buttocks: Wound Type: skin breakdown Suggestions for Active Care Change Position every (hours): 2 Times a day to sit in chair: 3 Therapies Physical Therapy: Eval and Treat Occupational Therapy: Eval and Treat Problem/Diagnosis (1) Acute respiratory failure with hypoxia and hypercarbia: Status: Acute Allergies/Procedures Done in Hospital Allergies enoxaparin [From Lovenox] Allergy (Severe, Verified 01/24/21 10:46) Rash & Itching peach Allergy (Severe, Verified 01/24/21 10:46) Other green tea Allergy (Intermediate, Verified 01/24/21 10:46) Itching Procedures: None Type of Care/Length of Stay Estimated LOS: More Than 30 Days Type of Care Needed: Skilled Rehab Potential: Fair Prognosis: Fair Additional Orders/Day of Discharge Additional Orders: Continue nightly BiPAP regimen. H&P will serve as current which was dated: 01/24/21 Day of Discharge: 01/30/21 Dietary and Speech Recommendations Dietitian Recommendations/Changes: Cardiac; sodium-restricted; 1500ml fluid restricted diet Kurt BID for wound healing. Discharge Plan Admission Admit Date/Time: 01/24/21 12:20 Primary Reason for Your Visit: Acute on chronic hypoxic and hypercarbic respiratory failure Attending Provider: Christiano Esparza Primary Care Provider: Joe Torres Consulting Providers: Faustino Wahl ; Randolph Solano ; Deb Qureshi STABILIZING MACHINE OPERATOR ; Jenny Baptiste Instructions Additional Instructions / Restrictions: Due to supratherapeutic INR, Coumadin reduced to 1 mg daily. Will need close follow-up of INR and adjustment as necessary. Discharge Orders/Prescriptions Prescriptions: New amoxicillin-pot clavulanate [Augmentin] 875-125 mg tablet 1 tab PO BID 6 Days Qty: 12 RF: 0 prednisone 10 mg tablet See Taper mg PO DAILY Qty: 30 RF: 0 Continued cholecalciferol (vitamin D3) 125 mcg (5,000 unit) capsule 2,000 unit PO DAILY RF: 0 calcium carb-magnesium carb 250 - 300 mg PO DAILY RF: 0 acetaminophen [Tylenol] 325 mg tablet 650 mg PO BID PRN (Reason: Pain 1-10 Or Fever) RF: 0 ferrous sulfate 325 MG tablet 325 mg PO DAILY RF: 0 vitamin B complex [B Complex-Vitamin B12] Tablet 1 tab PO DAILY RF: 0 omeprazole 20 mg Capsule,Delayed Release(Dr/Ec) 20 mg PO DAILY RF: 0 metoprolol tartrate 50 mg tablet 25 mg PO BID RF: 0 magnesium hydroxide [Milk of Magnesia] 400 mg/5 mL Suspension 30 ml PO DAILY PRN (Reason: Constipation) RF: 0 albuterol sulfate 2.5 mg/0.5 mL Solution For Nebulization 2.5 mg INHALATION Q6H PRN (Reason: Shortness Of Breath) RF: 0 clonazepam 0.5 mg Tablet 0.5 mg PO BID RF: 0 diltiazem HCl 60 mg capsule,extended release 12 hr 60 mg PO Q12 RF: 0 Changed furosemide [Lasix] 80 mg tablet 40 mg PO BID Qty: 0 RF: 0 warfarin 5 mg tablet 1 mg PO DAILY Qty: 0 RF: 0 Referrals / Follow Up: Joe Torres MD [Primary Care Provider] - In 1 Week Deb Qureshi NP, STABILIZING MACHINE OPERATOR-C [Nurse Practitioner] - Within 2 Weeks Tony Costello NP, STABILIZING MACHINE OPERATOR-C [Nurse Practitioner] - Within 2 Weeks Disposition Disposition (needs filled in before D/C Order can be placed): Senior Living Facility
--- NOTE | 2021-01-30 13:57 | DS.PCM_ITS ---
Documented by User: Amanda Stovall NP, BAGGAGE CHECKER-C 01/30/21 14:05 Providers Date of Admission: 01/24/21 Date of Discharge: 01/30/21 Primary Care Physician: Dr. Joe Torres MD Consultations 01/24/21 16:31 Consult: Em Physician / Pulmonary Medicine Routine Consulting Provider: [facility] [place] Reason for Consult: Resp failure EMERGENT Consult: No Notified: Yes Date Notified: 01/24/21 Time Notified: 16:31 Method of Notification: Verbal 01/24/21 16:32 Consult: Nephrology Routine Consulting Provider: Jenny Baptiste Reason for Consult: CKD, CHF EMERGENT Consult: No Notified: Yes Date Notified: 01/24/21 Time Notified: 16:33 Method of Notification: Text Consult: Onc/Wound/brilliandeer lopper Routine Comment: Reason for Consult:: Right groin wound Reason For Visit: ACUTE CHF Diagnosis Discharge Diagnosis (1) Acute respiratory failure with hypoxia and hypercarbia: Status: Acute Code(s): J96.01 - Acute respiratory failure with hypoxia; J96.02 - Acute respiratory failure with hypercapnia Medications at Discharge Home Medications acetaminophen 325 mg tablet 650 mg PO BID PRN tab 07/05/19 calcium carb-magnesium carb 250 - 300 mg PO DAILY 07/05/19 cholecalciferol (vitamin D3) 125 mcg (5,000 unit) capsule 2,000 unit PO DAILY 07/05/19 ferrous sulfate 325 mg PO DAILY 11/13/20 vitamin B complex [B Complex-Vitamin B12] 1 tab PO DAILY 11/13/20 metoprolol tartrate 25 mg PO BID 12/17/20 omeprazole 20 mg PO DAILY 12/17/20 albuterol sulfate 2.5 mg INHALATION Q6H PRN 01/05/21 magnesium hydroxide [Milk of Magnesia] 30 ml PO DAILY PRN 01/05/21 clonazepam 0.5 mg PO BID 01/24/21 diltiazem HCl 60 mg PO Q12 01/24/21 amoxicillin-pot clavulanate [Augmentin] 1 tab PO BID 6 Days #12 tab 01/30/21 furosemide [Lasix] 40 mg PO BID #0 tab 01/30/21 prednisone See Taper PO DAILY #30 tab 01/30/21 warfarin 1 mg PO DAILY #0 tab 01/30/21 Hospital Course Operations None Procedures None Summary of Care Provided Minutes Spent on Discharge: 35 Hospital Course: Patient is a 60-year-old female admitted 01/24/21 due to low blood pressure and shortness of breath. 1. Acute on chronic hypoxic and hypercarbic respiratory failure, multifactorial secondary to acute asthma exacerbation, suspected bilateral lower lobe pneumonia, hypoventilation secondary to obesity and acute on chronic heart failure with preserved ejection fraction-continue supplement oxygen to maintain O2 at above 90%. Continue BiPAP nightly. Follow-up with pulmonary medicine in 2 weeks. Patient wears 6 L at senior living, currently on 3 L continuously. 2. Acute asthma exacerbation-IV Solu-Medrol during admission. Covid negative. Respiratory panel negative. Prednisone taper at discharge. Continue home aerosol regimen. 3. Acute on chronic heart failure with preserved ejection fraction- echocardiogram July 2020 demonstrated an EF of 45%, moderate tricuspid valve insufficiency, mild global left ventricular systolic dysfunction. IV Lasix during admission. Chest x-ray 01/24/2021 with bilateral pleural effusions. Repeat CTA shows mild pulmonary interstitial edema with bilateral pleural effusions and consolidation of the lower lobes, possible coexisting pneumonia. No evidence of PE. No indication for thoracentesis at this time. Lasix 40 mg twice daily at discharge. Follow-up with cardiology in 2 weeks 4. Suspected bilateral lower lobe pneumonia-CTA demonstrates evidence of bilateral lower lobe consolidation/pneumonia. Initiated on azithromycin and Rocephin during admission, plan for 7-day course of antibiotics. Augmentin at discharge to complete course. 5. Acute kidney injury on chronic kidney disease stage IIIa- stable, trend BMP. Acute kidney injury resolved 6. Chronic microcytic anemia/iron deficiency-stable, trend CBC 7. STACEY-continue PAP regimen nightly. 8. Paroxysmal atrial fibrillation-on Cardizem, metoprolol. Coumadin held due to supratherapeutic INR. Repeat INR 3.8. Resume Coumadin at 1 mg/day and trend INR. 9. Hypertension-stable, continue current regimen. 10. Hyperlipidemia-not on regimen. 11. Morbid obesity-encouraged diet and lifestyle modifications. 12. GERD-continue PPI. 13. Chronic left thigh wound-noninfected. Continue wound care as ordered. Physical Exam Const alert, oriented x3 and no apparent distress Orientation / Consciousness: awake, oriented to person, oriented to place and oriented to time HEENT normocephalic and moist oral mucous membranes Eyes PERRL, EOMs intact bilaterally and conjunctivae normal Neck no lymphadenopathy Resp clear to auscultation bilaterally Auscultation: diminished lung sounds Cardio regular rate, regular rhythm and no murmurs Peripheral Pulses: pulses 2+ throughout GI normal to inspection, nondistended, normoactive bowel sounds, non-tender and non-distended Extremity normal to inspection General Extremity: edema bilateral lower extremity (Chronic) Details: moderate Skin no rashes or lesions noted Lesions: no lesions Rashes: no rashes Trauma: no lacerations or abrasions Neuro CN's II-XII intact bilaterally, no focal motor deficits, no sensory deficits noted and deep tendon reflexes 2+ bilaterally Psych mental status grossly normal and affect normal Patient seen and examined prior to discharge. Physical assessment as noted above. Patient is stable for discharge with follow up recommendations as noted above. This patient was seen by ROCKY Montano under the supervision of Dr. Esparza. Weight / BMI Weight Weight: 350 lb 8.56 oz Body Mass Index (BMI) 66.8 ABG / Lab / Microbiology Data Result Diagrams: 01/30/21 06:04 01/30/21 06:04 Laboratory: Laboratory Results - last 24 hr 01/30/21 06:04: WBC 15.5 H, RBC 3.47 L, Hgb 8.8 L, Hct 31.0 L, MCV 89.3, MCH 25.4 L, MCHC 28.4 L, RDW Std Deviation 88.9 H, RDW Coeff of Claudia 27.4 H, Plt Count 171, MPV 10.5, Immature Gran % (Auto) 0.900, Neut % (Auto) 92.7 H, Lymph % (Auto) 3.6 L, [place] % (Auto) 2.6, Eos % (Auto) 0.0, Baso % (Auto) 0.2, Absolute Neuts (auto) 14.4 H, Absolute Lymphs (auto) 0.56 L, Nucleated RBC % 0.1, Differential Comment SCANNED, Anisocytosis 2+, Microcytosis 1+, Target Cells 1+ 01/30/21 06:04: Sodium 137, Potassium 3.9, Chloride 94 L, Carbon Dioxide 40.0 H, Anion Gap 3 L, BUN 63 H, Creatinine 1.09 H, Estim Creat Clear Calc 38.44, Est GFR (MDRD) Af Amer 65, Est GFR (MDRD) Non-Af 54 L, BUN/Creatinine Ratio 57.8 H, Glucose 217 H, Calcium 9.1 Microbiology: Microbiology 01/24/21 16:12 Blood Culture (Wb) - Chest Blood Culture - Final No growth in 5 days. 01/29/21 11:00 Mucosa - Nasopharyngeal Respiratory Panel (PCR) - Final 01/24/21 10:50 Blood Culture (Wb) - Left Wrist Blood Culture - Final No growth in 5 days. 01/24/21 10:56 Mucosa - Nose SARS-CoV-2 Antigen (Rapid) - Final Meaningful Use Info Meaningful Use Diagnoses (Choose all that apply): CHF CHF TORIBIO/ARB ordered at discharge?: No Reason TORIBIO/ARB not ordered?: Worsening renal function Documented LVEF (%): 45 Discharge Plan Admission Admit Date/Time: 01/24/21 12:20 Primary Reason for Your Visit: Acute on chronic hypoxic and hypercarbic respiratory failure Attending Provider: Christiano Esparza Primary Care Provider: Joe Torres Consulting Providers: Faustino Wahl ; Randolph Solano ; Deb Qureshi NP ; Jenny Baptiste Instructions Additional Instructions / Restrictions: Due to supratherapeutic INR, Coumadin reduced to 1 mg daily. Will need close follow-up of INR and adjustment as necessary. Discharge Orders/Prescriptions Prescriptions: New amoxicillin-pot clavulanate [Augmentin] 875-125 mg tablet 1 tab PO BID 6 Days Qty: 12 RF: 0 prednisone 10 mg tablet See Taper mg PO DAILY Qty: 30 RF: 0 Continued cholecalciferol (vitamin D3) 125 mcg (5,000 unit) capsule 2,000 unit PO DAILY RF: 0 calcium carb-magnesium carb 250 - 300 mg PO DAILY RF: 0 acetaminophen [Tylenol] 325 mg tablet 650 mg PO BID PRN (Reason: Pain 1-10 Or Fever) RF: 0 ferrous sulfate 325 MG tablet 325 mg PO DAILY RF: 0 vitamin B complex [B Complex-Vitamin B12] Tablet 1 tab PO DAILY RF: 0 omeprazole 20 mg Capsule,Delayed Release(Dr/Ec) 20 mg PO DAILY RF: 0 metoprolol tartrate 50 mg tablet 25 mg PO BID RF: 0 magnesium hydroxide [Milk of Magnesia] 400 mg/5 mL Suspension 30 ml PO DAILY PRN (Reason: Constipation) RF: 0 albuterol sulfate 2.5 mg/0.5 mL Solution For Nebulization 2.5 mg INHALATION Q6H PRN (Reason: Shortness Of Breath) RF: 0 clonazepam 0.5 mg Tablet 0.5 mg PO BID RF: 0 diltiazem HCl 60 mg capsule,extended release 12 hr 60 mg PO Q12 RF: 0 Changed furosemide [Lasix] 80 mg tablet 40 mg PO BID Qty: 0 RF: 0 warfarin 5 mg tablet 1 mg PO DAILY Qty: 0 RF: 0 Referrals / Follow Up: Joe Torres MD [Primary Care Provider] - In 1 Week Deb Qureshi NP, BAGGAGE CHECKER-C [Nurse Practitioner] - Within 2 Weeks Tony Costello BAGGAGE CHECKER, BAGGAGE CHECKER-C [Nurse Practitioner] - Within 2 Weeks Disposition Disposition (needs filled in before D/C Order can be placed): [facility] Facility Documented by User: Dr. Christiano Esparza MD 01/30/21 15:31 Providers Date of Admission: 01/24/21 Reason For Visit: ACUTE CHF Medications at Discharge Home Medications acetaminophen 325 mg tablet 650 mg PO BID PRN tab 07/05/19 calcium carb-magnesium carb 250 - 300 mg PO DAILY 07/05/19 cholecalciferol (vitamin D3) 125 mcg (5,000 unit) capsule 2,000 unit PO DAILY 07/05/19 ferrous sulfate 325 mg PO DAILY 11/13/20 vitamin B complex [B Complex-Vitamin B12] 1 tab PO DAILY 11/13/20 metoprolol tartrate 25 mg PO BID 12/17/20 omeprazole 20 mg PO DAILY 12/17/20 albuterol sulfate 2.5 mg INHALATION Q6H PRN 01/05/21 magnesium hydroxide [Milk of Magnesia] 30 ml PO DAILY PRN 01/05/21 clonazepam 0.5 mg PO BID 01/24/21 diltiazem HCl 60 mg PO Q12 01/24/21 amoxicillin-pot clavulanate [Augmentin] 1 tab PO BID 6 Days #12 tab 08/28/21 furosemide [Lasix] 40 mg PO BID #0 tab 01/30/21 prednisone See Taper PO DAILY #30 tab 01/30/21 warfarin 1 mg PO DAILY #0 tab 01/30/21 Hospital Course Summary of Care Provided Hospital Course: This patient was seen in conjunction with BAGGAGE CHECKERAmanda. I have independently interviewed and examined the patient and reviewed pertinent history, examination findings, laboratory and plan of management. I have reviewed the note and agree with the documented findings with the few additional points. In brief, patient is admitted for acute on chronic combined respiratory failure, multifactorial including acute on chronic combined systolic and diastolic heart failure/asthma exacerbation: Repeat chest x-ray does not show appreciable effusion therefore previous effusion cleared with Lasix. 2D echo in July shows EF 45%. 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 Paroxysmal A. fib on Coumadin. INR supratherapeutic. CTA chest shows evidence of bilateral lower lobe pneumonia therefore started on Rocephin and Zithromax as Levaquin will further increase INR. Patient is discharged on Augmentin. Other comorbidities as mentioned above Discharged to SNF. Discharge medication reconciliation done. Discharge follow-up instructions completed. Discharge process discussed with the patient and all questions were answered to patient's satisfaction. Total time spent, exact 35 minutes on discharge meds reconciliation, examination, coordination of care with nurses and ancillary staff, review of imaging and blood test and discussion with the patient on follow-up in structions I have discussed my assessment with BAGGAGE CHECKERAmanda and orders have been reviewed. Physical Exam Narrative Shortness of breath is improving. Mild sleepy. General: Alert, Oriented x3, Cooperative HEENT: Atraumatic, PERRLA, EOMI, Normocephalic Oral: No Gingival or Mucosal Lesions/ Ulcerations Neck: Supple, No JVD, Negative Carotid Bruits Lungs: Air entry diminished in bilateral lung bases. No crepitation/rhonchi. Cardiovascular: Regular rate, Regular Rhythm, Normal S1, Normal S2, No murmurs Abdomen: Bowel Sounds Present, Soft, Non Tender, Non-Distended : No renal angle tenderness. No suprapubic tenderness. Extremities: Bilateral leg edema above knee/fat, Capillary Refill Less than 3 Seconds Skin: No rashes, No breakdown Musculoskeletal: No Tenderness to Palpation of Joints or Extremities Neurological: Cranial nerves II-XII grossly intact, DTR 2+/4 and Symmetrical, Neuro grossly intact Psych/Mental Status: Normal Affect, Appropriate. ABG / Lab / Microbiology Data Result Diagrams: 01/30/21 06:04 01/30/21 06:04 Discharge Plan Admission Admit Date/Time: 01/24/21 12:20 Primary Reason for Your Visit: Acute on chronic hypoxic and hypercarbic respiratory failure Attending Provider: Christiano Esparza Primary Care Provider: Joe Torres Consulting Providers: Faustino Wahl ; Randolph Solano ; Deb Qureshi BAGGAGE CHECKER ; Jenny Baptiste Instructions Additional Instructions / Restrictions: Due to supratherapeutic INR, Coumadin reduced to 1 mg daily. Will need close follow-up of INR and adjustment as necessary. Discharge Orders/Prescriptions Prescriptions: New amoxicillin-pot clavulanate [Augmentin] 875-125 mg tablet 1 tab PO BID 6 Days Qty: 12 RF: 0 prednisone 10 mg tablet See Taper mg PO DAILY Qty: 30 RF: 0 Continued cholecalciferol (vitamin D3) 125 mcg (5,000 unit) capsule 2,000 unit PO DAILY RF: 0 calcium carb-magnesium carb 250 - 300 mg PO DAILY RF: 0 acetaminophen [Tylenol] 325 mg tablet 650 mg PO BID PRN (Reason: Pain 1-10 Or Fever) RF: 0 ferrous sulfate 325 MG tablet 325 mg PO DAILY RF: 0 vitamin B complex [B Complex-Vitamin B12] Tablet 1 tab PO DAILY RF: 0 omeprazole 20 mg Capsule,Delayed Release(Dr/Ec) 20 mg PO DAILY RF: 0 metoprolol tartrate 50 mg tablet 25 mg PO BID RF: 0 magnesium hydroxide [Milk of Magnesia] 400 mg/5 mL Suspension 30 ml PO DAILY PRN (Reason: Constipation) RF: 0 albuterol sulfate 2.5 mg/0.5 mL Solution For Nebulization 2.5 mg INHALATION Q6H PRN (Reason: Shortness Of Breath) RF: 0 clonazepam 0.5 mg Tablet 0.5 mg PO BID RF: 0 diltiazem HCl 60 mg capsule,extended release 12 hr 60 mg PO Q12 RF: 0 Changed furosemide [Lasix] 80 mg tablet 40 mg PO BID Qty: 0 RF: 0 warfarin 5 mg tablet 1 mg PO DAILY Qty: 0 RF: 0 Referrals / Follow Up: Joe Torres MD [Primary Care Provider] - In 1 Week Deb Qureshi BAGGAGE CHECKER, BAGGAGE CHECKER-C [Nurse Practitioner] - Within 2 Weeks Tony Costello BAGGAGE CHECKER, BAGGAGE CHECKER-C [Nurse Practitioner] - Within 2 Weeks Disposition Disposition (needs filled in before D/C Order can be placed): [facility] Facility Charges/Coding Visit Charges Inpatient E&M: 92525 Disch Hosp
== END 2021-01-30 20:50 | disposition skilled nursing facility (03) | DRG 291 ==
LOC: ED 12:16 → PCU 12:23 → ICU 01-25 13:40 → PCU 01-26 13:26
PROVIDERS: Hospitalist; Internal Medicine; Internal Medicine Critical Care Medicine; Nurse Practitioner Family; Admitting Provider Internal Medicine; Emergency Provider Emergency Medicine; PCP Family Medicine; Visit Provider Internal Medicine
DX: I13.0 Hypertensive heart and chronic kidney disease with heart failure and stage 1 through stage 4 chronic kidney disease, or unspecified chronic kidney disease (principal); J96.21 Acute and chronic respiratory failure with hypoxia; J96.22 Acute and chronic respiratory failure with hypercapnia; J18.9 Pneumonia, unspecified organism; I50.33 Acute on chronic diastolic (congestive) heart failure; J45.901 Unspecified asthma with (acute) exacerbation; E66.2 Morbid (severe) obesity with alveolar hypoventilation; N17.9 Acute kidney failure, unspecified; Z68.44 Body mass index [BMI] 60.0-69.9, adult; J44.1 Chronic obstructive pulmonary disease with (acute) exacerbation; J44.0 Chronic obstructive pulmonary disease with (acute) lower respiratory infection; N18.31 Chronic kidney disease, stage 3a; D50.9 Iron deficiency anemia, unspecified; D63.1 Anemia in chronic kidney disease; I48.0 Paroxysmal atrial fibrillation; E78.5 Hyperlipidemia, unspecified; K21.9 Gastro-esophageal reflux disease without esophagitis; Z79.01 Long term (current) use of anticoagulants; Z79.899 Other long term (current) drug therapy; Z86.711 Personal history of pulmonary embolism; Z87.891 Personal history of nicotine dependence; I27.29 Other secondary pulmonary hypertension; I95.9 Hypotension, unspecified; Z66 Do not resuscitate; R53.81 Other malaise; R79.1 Abnormal coagulation profile; Z99.81 Dependence on supplemental oxygen; S71.102D Unspecified open wound, left thigh, subsequent encounter; X58.XXXD Exposure to other specified factors, subsequent encounter
CPT/HCPCS: 36415; 36600; 71045; 71046; 71275; 80048; 80053; 82803; 83735; 83880; 84484; 85025; 85610; 87040; 87070; 87077; 87186; 87205; 87426; 87633; 87635; 93005; 94002; 94003; 94640; 94667; 94668; 94762; 97802; 97803; 99251; 99285; Q9967; U0005; A4216; G0463; J0696; J1940; U0003

== ENCOUNTER 2021-04-09 11:16 | Emergency (ER) | payer MEDICARE, MEDICAID, SELFPAY ==
[2021-04-09 11:17] VITALS: BP 124/76; PULSE 109; RESP 20; TEMP 36.8; O2SAT 97; BMI 61.9
--- NOTE | 2021-04-09 11:47 | EX.ED.DYSGE1 ---
HPI History of Present Illness Chief Complaint: Abn Labs Informant: patient Narrative Narrative: Patient states she was brought to the emergency room from the intermediate secondary to increasing leg swelling. She reported been losing weight and when they weighed her recently noted that she has put on pounds again. She states is not doing anything different. Her legs have been more swollen over the past 1 month. Apparently BNP was obtained and was elevated at 2816. Patient is on Lasix. She states that she does not feel as if she is urinating as much as normal. She denies shortness of breath. She is on chronic oxygen and is not requiring increased oxygen at this time. [facility] Medical History Anemia Arthritis Atrial fibrillation Blood clot in vein Carpal tunnel syndrome CHF (congestive heart failure) Chronic pain CKD (chronic kidney disease), stage III Congestive heart failure (CHF) Debility Depression DVT (deep venous thrombosis) Former smoker GERD (gastroesophageal reflux disease) History of left heart catheterization (LHC) (~07/20/20) Hyperkalemia Obesity Pleural effusion Pulmonary embolism Home Medications acetaminophen 325 mg tablet 650 mg PO BID PRN tab 07/05/19 [History Last Taken Unknown] calcium carb-magnesium carb 250 - 300 mg PO DAILY 07/05/19 [History Last Taken Unknown] cholecalciferol (vitamin D3) 125 mcg (5,000 unit) capsule 2,000 unit PO DAILY 07/05/19 [History Last Taken 07/17/20] ferrous sulfate 325 mg PO DAILY 11/13/20 [History Last Taken Unknown] vitamin B complex [B Complex-Vitamin B12] 1 tab PO DAILY 11/13/20 [History Last Taken Unknown] metoprolol tartrate 25 mg PO BID 12/17/20 [History Last Taken Unknown] omeprazole 20 mg PO DAILY 12/17/20 [History Last Taken Unknown] albuterol sulfate 2.5 mg INHALATION Q6H PRN 01/05/21 [History Last Taken Unknown] magnesium hydroxide [Milk of Magnesia] 30 ml PO DAILY PRN 01/05/21 [History Last Taken Unknown] diltiazem HCl 60 mg PO Q12 01/24/21 [History Last Taken Unknown] bisacodyl 10 mg NH DAILY PRN 04/09/21 [History Last Taken Unknown] docusate sodium [Colace] 100 mg PO BID 04/09/21 [History Last Taken Unknown] fluticasone furoate [Flonase Sensimist] 1 spray INTRANASAL QHS 04/09/21 [History Last Taken Unknown] furosemide 60 mg PO DAILY 04/09/21 [History Last Taken Unknown] furosemide [Lasix] 40 mg PO QHS 04/09/21 [History Last Taken Unknown] mineral oil [Enema] 118 ml NH DAILY PRN 04/09/21 [History Last Taken Unknown] potassium chloride 40 meq PO DAILY 04/09/21 [History Last Taken Unknown] warfarin 3 mg PO SUTUTHSA 04/09/21 [History Last Taken Unknown] warfarin 5 mg PO MOWEFR 04/09/21 [History Last Taken Unknown] zinc oxide 1 applic TOPICAL TID 04/09/21 [History Last Taken Unknown] Allergy/AdvReac Type Severity Reaction Status Date / Time enoxaparin [From Lovenox] Allergy Severe Rash & Verified 04/09/21 11: Itching peach Allergy Severe Other Verified 04/09/21 11:21 green tea Allergy Intermediate Itching Verified 04/09/21 11:21 Family History Mother Diabetes High cholesterol Father Diabetes Heart disease Hypertension Sister Diabetes High cholesterol Brother Diabetes Surgical History History of cholecystectomy History of oral surgery Social History Smoking Status: Former smoker alcohol intake: never substance use type: does not use what type of physical activity do you participate in: none ROS ROS ED Constitutional Constitutional ED: Denies chills or fever(s) Eyes Eyes: Denies change in vision ENT ENT ED: Denies sore throat Cardiovascular Cardiovascular: Denies chest pain Respiratory/Chest Respiratory/Chest: Denies cough or dyspnea Gastrointestinal Gastrointestinal: Denies abdominal pain, diarrhea, nausea or vomiting Genitourinary Genitourinary ED: Denies dysuria Musculoskeletal Musculoskeletal: Denies back pain Integumentary Denies rash Neurologic Neurologic: Denies headache(s) or weakness Allergic/Immunologic Allergic/Immunologic ED: Denies urticaria EXAM Physical Exam Const Vital Signs: 04/09/21 11:17 04/09/21 11:31 Temperature 98.2 F Temperature Source Oral Pulse Rate 109 H Respiratory Rate 20 H Respiratory Effort Normal Non-Labored Respiratory Pattern Tachypnea Blood Pressure 124/76 H Blood Pressure Mean 92 Pulse Ox 97 Oxygen Delivery Method Nasal Cannula Oxygen Flow Rate (L/min) 4 Positive well nourished and well developed General Appearance ED: well developed HEENT Reports normocephalic and head/scalp atraumatic Eyes PERRL and EOMs intact bilaterally Neck supple Chest Wall inspection of chest normal and palpation of chest normal Resp normal respiratory effort and clear to auscultation bilaterally Cardio regular rate and regular rhythm GI normal to inspection, nondistended, normoactive bowel sounds Palpation: soft Extremity Extremity Narrative: Chronic lower extremity edema with lymphedema changes noted over the lower legs. Strong distal pulses. No edema at the ankles or feet. Neuro oriented x3 Sensorium / Orientation: alert Psych mental status grossly normal Skin no rashes or lesions noted MDM MDM MDM Narrative Medical decision making narrative: Repeat lab work obtained. Patient placed on playground monitor. Lab Data Attestation: I reviewed the patient's lab results. Labs: Laboratory Results - last 24 hr 04/09/21 04/09/21 04/09/21 11:55 11:55 11:55 WBC 4.3 L RBC 3.77 L Hgb 9.3 L Hct 32.1 L MCV 85.1 MCH 24.7 L MCHC 29.0 L RDW Std Deviation 58.8 H RDW Coeff of Claudia 18.8 H Plt Count 221 MPV 10.3 Immature Gran % (Auto) 0.200 Neut % (Auto) 60.9 Lymph % (Auto) 20.8 [place] % (Auto) 11.6 H Eos % (Auto) 5.3 H Baso % (Auto) 1.2 H Absolute Neuts (auto) 2.6 Absolute Lymphs (auto) 0.90 Nucleated RBC % 0 PT INR Sodium 141 Potassium 3.5 Chloride 101 Carbon Dioxide 36.0 H Anion Gap 4 L BUN 21 H Creatinine 1.02 Estim Creat Clear Calc 41.08 Est GFR (MDRD) Af Amer 71 Est GFR (MDRD) Non-Af 58 L BUN/Creatinine Ratio 20.6 H Glucose 117 H Calcium 9.4 B-Natriuretic Peptide 339.7 H 04/09/21 12:15 WBC RBC Hgb Hct MCV MCH MCHC RDW Std Deviation RDW Coeff of Claudia Plt Count MPV Immature Gran % (Auto) Neut % (Auto) Lymph % (Auto) [place] % (Auto) Eos % (Auto) Baso % (Auto) Absolute Neuts (auto) Absolute Lymphs (auto) Nucleated RBC % PT 25.4 H INR 2.4 Sodium Potassium Chloride Carbon Dioxide Anion Gap BUN Creatinine Estim Creat Clear Calc Est GFR (MDRD) Af Amer Est GFR (MDRD) Non-Af BUN/Creatinine Ratio Glucose Calcium B-Natriuretic Peptide Treatment and Re-Evaluation Comments:: Patient's lab work is reviewed here. BNP for me is 340. I am unsure if the previous value was an erroneous lab or run on the wrong patient's blood. Remainder of values appear to be consistent with what she had performed as an outpatient. At this time hemoglobin is stable. Renal function is good. INR is therapeutic at 2.4. Patient is not short of breath or requiring more oxygen than baseline. I did speak with Dr. Joe Torres, her PCP at [place]. He is comfortable with patient being sent back to continue her current regimen. Discharge Plan Triage Chief Complaint: Abn Labs ED Provider: Angela Garcia Dx/Rx/DC Orders Clinical Impression: Edema Instructions: ED Peripheral Edema, Bilateral Prescriptions: No Action cholecalciferol (vitamin D3) 125 mcg (5,000 unit) capsule 2,000 unit PO DAILY RF: 0 calcium carb-magnesium carb 250 - 300 mg PO DAILY RF: 0 acetaminophen [Tylenol] 325 mg tablet 650 mg PO BID PRN (Reason: Pain 1-10 Or Fever) RF: 0 ferrous sulfate 325 MG tablet 325 mg PO DAILY RF: 0 vitamin B complex [B Complex-Vitamin B12] Tablet 1 tab PO DAILY RF: 0 omeprazole 20 mg Capsule,Delayed Release(Dr/Ec) 20 mg PO DAILY RF: 0 metoprolol tartrate 50 mg tablet 25 mg PO BID RF: 0 magnesium hydroxide [Milk of Magnesia] 400 mg/5 mL Suspension 30 ml PO DAILY PRN (Reason: Constipation) RF: 0 albuterol sulfate 2.5 mg/0.5 mL Solution For Nebulization 2.5 mg INHALATION Q6H PRN (Reason: Shortness Of Breath) RF: 0 diltiazem HCl 60 mg capsule,extended release 12 hr 60 mg PO Q12 RF: 0 mineral oil [Enema] Enema 118 ml NH DAILY PRN (Reason: Constipation) RF: 0 bisacodyl 10 mg Suppository 10 mg NH DAILY PRN (Reason: Constipation) RF: 0 warfarin 5 mg Tablet 5 mg PO MOWEFR RF: 0 docusate sodium [Colace] 100 mg Capsule 100 mg PO BID RF: 0 furosemide 20 mg Tablet 60 mg PO DAILY RF: 0 Flonase Sensimist 27.5 mcg/actuation [place],Suspension 1 spray INTRANASAL QHS RF: 0 zinc oxide 40 % Ointment 1 applic TOPICAL TID RF: 0 potassium chloride 20 mEq Tablet Extended Release 40 meq PO DAILY RF: 0 furosemide [Lasix] 80 mg tablet 40 mg PO QHS RF: 0 warfarin 5 mg tablet 3 mg PO SUTUTHSA RF: 0 Primary Care Provider: Joe Torres Referrals: Joe Torres MD [Primary Care Provider] - 1-2 Weeks Disposition Disposition: Home, Self Care
[2021-04-09 12:09] LABS: Absolute Neutrophil Count 2.6 X10^3/uL (2.0-7.7); Basophil# 0.05 X10^3/uL; Basophil% 1.2 % (0-1); Eosinophil# 0.23 X10^3/uL; Eosinophils% 5.3 % (0-5); Hematocrit 32.1 % (37-47); Hemoglobin 9.3 g/dL (12.0-15.0); Lymphocyte % 20.8 % (19-41); Mean Corpuscular Hgb 24.7 pg (27.0-32.0); Mean Corpuscular Volume 85.1 fL (81-99); Mean Platelet Vol. 10.3 fl (6.2-12.0); Monocyte% 11.6 % (0-10); NRBC Flagged by Analyzer 0 % (0-5); Neutrophil # 2.63 X10^3/uL (2.7-7.7); Neutrophil % 60.9 % (47-70); Platelet Count 221 K/mm3 (150-450); RBC Distribution Width CV 18.8 % (11.6-14.6); RBC Distribution Width SD 58.8 fl (35.1-43.9); Red Blood Count 3.77 M/mm3 (4.2-5.4); White Blood Count 4.3 K/mm3 (4.4-11.0)
[2021-04-09 12:13] LABS: Anion Gap 4 (5-15); BUN 21 mg/dL (7-18); BUN/Creat Ratio 20.6 RATIO (10-20); Calcium,Total 9.4 mg/dL (8.5-10.1); Chloride 101 mmol/L (98-107); Creatinine, Serum 1.02 mg/dL (0.55-1.02); EST Glomerular Filtration Rate 58 mL/min (>60); Est Glom Filt Rate - Afr Amer 71 mL/min (>60); Estimated Creatinine Clearance 41.08 ml/min; Glucose 117 mg/dL (74-106); Potassium 3.5 mmol/L (3.5-5.1); Sodium Level 141 mmol/L (136-145)
[2021-04-09 12:41] LABS: BNP,B-Type NATRIURETIC PEPTIDE 339.7 pg/mL (0-100)
[2021-04-09 12:51] LABS: International Normalized Ratio 2.4; Prothrombin Time (Protime)PT. 25.4 SECONDS (11.7-14.9)
[2021-04-09 14:09] VITALS: BP 109/76; PULSE 90; RESP 16; O2SAT 98
--- NOTE | 2021-04-09 14:18 | ED.RN ---
return call attempted to [facility]. no answer. roverto santos rn [id number]
== END 2021-04-09 14:20 | disposition home or self-care (01) ==
PROVIDERS: Emergency Provider Emergency Medicine; PCP Family Medicine
DX: R60.0 Localized edema (principal); M19.90 Unspecified osteoarthritis, unspecified site; I48.91 Unspecified atrial fibrillation; I50.9 Heart failure, unspecified; N18.30 Chronic kidney disease, stage 3 unspecified; F32.A Depression, unspecified; K21.9 Gastro-esophageal reflux disease without esophagitis; E66.9 Obesity, unspecified; Z99.81 Dependence on supplemental oxygen; Z87.891 Personal history of nicotine dependence; Z79.51 Long term (current) use of inhaled steroids; Z79.01 Long term (current) use of anticoagulants; Z79.899 Other long term (current) drug therapy
CPT/HCPCS: 80048; 83880; 85025; 85610; 99285; A4216

== ENCOUNTER 2021-05-07 13:12 | Emergency (ER) | payer MEDICARE, MEDICAID, SELFPAY ==
[2021-05-07 13:17] VITALS: BP 110/79; PULSE 89; RESP 20; TEMP 36.7; O2SAT 98; BMI 55.9
--- NOTE | 2021-05-07 14:21 | EKG12_ITS ---
Test Reason : EDEMA Blood Pressure : / mmHG Vent. Rate : 088 BPM Atrial Rate : 070 BPM P-R Int : 000 ms QRS Dur : 110 ms QT Int : 328 ms P-R-T Axes : 000 097 -28 degrees QTc Int : 396 ms Atrial fibrillation T wave abnormality, consider anterior ischemia Abnormal ECG Confirmed by OMAR STEWART, NICOLE ([id number]), primer expeditor and drier BENJI TONG ([id number]) on 05/10/2021 9:12:39 AM Referred By: ABDIRAHMAN/ENEIDA Confirmed By:ENRIQUE NELSON MD
[2021-05-07 14:32] VITALS: O2SAT 98
--- NOTE | 2021-05-07 14:50 | RAD_ITS ---
STUDY: X-RAY CHEST REASON FOR EXAM: Female, 60 years old. Dyspnea TECHNIQUE: Single AP portable view of the chest. COMPARISON: 01/28/2021. FINDINGS: The lungs are clear and expanded. There is no demonstrated pleural abnormality. Normal size heart. Normal mediastinum and anay. Normal visualized pulmonary arteries. Normal visualized aortic arch and descending thoracic aorta. Normal visualized thoracic spine. Normal visualized ribs, clavicles, and shoulders. There is no demonstrated abnormality of the visualized soft tissue structures of the upper abdomen. RAD/Chest 1 View (Portable) IMPRESSION: Normal x-ray examination of the chest. Electronically Signed: Adriana Lu MD at 21:33 EST Tel , Service support ,
[2021-05-07 15:02] LABS: Absolute Lymphocyte Count 0.61 X10^3/uL (0.83-4.51); Absolute Neutrophil Count 2.8 X10^3/uL (2.0-7.7); Basophil# 0.05 X10^3/uL; Basophil% 1.2 % (0-1); Eosinophil# 0.26 X10^3/uL; Eosinophils% 6.1 % (0-5); Hematocrit 33.4 % (37-47); Hemoglobin 9.4 g/dL (12.0-15.0); Lymphocyte # 0.61 X10^3/ul (0.83-4.51); Lymphocyte % 14.4 % (19-41); Mean Corp Hgb Conc 28.1 g/dL (32-36); Mean Corpuscular Hgb 23.4 pg (27.0-32.0); Mean Corpuscular Volume 83.1 fL (81-99); Mean Platelet Vol. 10.7 fl (6.2-12.0); Monocyte# 0.54 X10^3/uL; Monocyte% 12.7 % (0-10); NRBC Flagged by Analyzer 0 % (0-5); Neutrophil # 2.77 X10^3/uL (2.7-7.7); Neutrophil % 65.4 % (47-70); Platelet Count 240 K/mm3 (150-450); RBC Distribution Width CV 18.8 % (11.6-14.6); RBC Distribution Width SD 56.7 fl (35.1-43.9); Red Blood Count 4.02 M/mm3 (4.2-5.4); White Blood Count 4.2 K/mm3 (4.4-11.0)
--- NOTE | 2021-05-07 15:19 | EX.ED.DYSGE1 ---
HPI History of Present Illness Chief Complaint: Edema Informant: patient Onset/Context/Timing Onset: Month(s) (1) Context: Gradual Onset Timing: Continuous Quality: Edema Location: Lower extremities and abdomen Worsened by: Nothing Relieved by: Nothing Narrative Narrative: Patient presents with increasing edema that has been getting worse over the past month. Patient states she normally has swelling in her lower extremities. Patient states that now it is coming up into her abdomen. Patient states she has been gaining weight over the past month. Patient admits to two-pillow orthopnea. Patient denies anything that makes it worse. Patient states nothing makes it better. Patient denies any cough. Patient denies any chest pain. [facility] Medical History Anemia Arthritis Atrial fibrillation Blood clot in vein Carpal tunnel syndrome CHF (congestive heart failure) Chronic pain CKD (chronic kidney disease), stage III Congestive heart failure (CHF) Debility Depression DVT (deep venous thrombosis) Former smoker GERD (gastroesophageal reflux disease) History of left heart catheterization (LHC) (~07/20/20) Hyperkalemia Obesity Pleural effusion Pulmonary embolism Home Medications acetaminophen 325 mg tablet 650 mg PO Q6H PRN PRN tab 07/05/19 [History Last Taken Unknown] calcium carb-magnesium carb 250 - 300 mg PO DAILY 07/05/19 [History Last Taken Unknown] cholecalciferol (vitamin D3) 125 mcg (5,000 unit) capsule 2,000 unit PO DAILY 07/05/19 [History Last Taken 07/17/20] ferrous sulfate 325 mg PO DAILY 11/13/20 [History Last Taken Unknown] vitamin B complex [B Complex-Vitamin B12] 1 tab PO DAILY 11/13/20 [History Last Taken Unknown] metoprolol tartrate 25 mg PO BID 12/17/20 [History Last Taken Unknown] omeprazole 20 mg PO DAILY 12/17/20 [History Last Taken Unknown] albuterol sulfate 2.5 mg INHALATION Q6H PRN 01/05/21 [History Last Taken Unknown] magnesium hydroxide [Milk of Magnesia] 30 ml PO DAILY PRN 01/05/21 [History Last Taken Unknown] diltiazem HCl 60 mg PO Q12 01/24/21 [History Last Taken Unknown] bisacodyl 10 mg DC DAILY PRN 04/09/21 [History Last Taken Unknown] docusate sodium [Colace] 100 mg PO BID 04/09/21 [History Last Taken Unknown] fluticasone furoate [Flonase Sensimist] 1 spray INTRANASAL QHS 04/09/21 [History Last Taken Unknown] furosemide 60 mg PO DAILY 04/09/21 [History Last Taken Unknown] furosemide [Lasix] 40 mg PO QHS 04/09/21 [History Last Taken Unknown] mineral oil [Enema] 118 ml DC DAILY PRN 04/09/21 [History Last Taken Unknown] potassium chloride 40 meq PO DAILY 04/09/21 [History Last Taken Unknown] warfarin 3 mg PO SUTUTHSA 04/09/21 [History Last Taken Unknown] warfarin 5 mg PO MOWEFR 04/09/21 [History Last Taken Unknown] zinc oxide 1 applic TOPICAL TID 04/09/21 [History Last Taken Unknown] spironolactone 25 mg PO DAILY #7 tab 05/07/21 [Rx Last Taken Unknown] Allergy/AdvReac Type Severity Reaction Status Date / Time enoxaparin [From Lovenox] Allergy Severe Rash & Verified 05/07/21 13:22 Itching peach Allergy Severe Other Verified 05/07/21 13:22 green tea Allergy Intermediate Itching Verified 05/07/21 13:22 Family History Mother Diabetes High cholesterol Father Diabetes Heart disease Hypertension Sister Diabetes High cholesterol Brother Diabetes Surgical History History of cholecystectomy History of oral surgery Social History Smoking Status: Former smoker alcohol intake: never substance use type: does not use what type of physical activity do you participate in: none ROS ROS ED Constitutional Constitutional ED: Denies chills or fever(s) Eyes Eyes: Denies blurry vision or change in vision ENT ENT ED: Denies rhinorrhea or sore throat Cardiovascular Cardiovascular: Denies chest pain or palpitations Respiratory/Chest Respiratory/Chest: Reports dyspnea; Denies cough Gastrointestinal Gastrointestinal: Denies nausea or vomiting Genitourinary Genitourinary ED: Denies dysuria or hematuria Musculoskeletal Musculoskeletal: Reports back pain; Denies neck pain Integumentary Denies abscess or rash Neurologic Neurologic: Denies headache(s) or weakness Allergic/Immunologic Allergic/Immunologic ED: Denies mouth swelling or urticaria EXAM Physical Exam Const Vital Signs: 05/07/21 13:17 05/07/21 13:22 05/07/21 14:32 Temperature 98.1 F Temperature Source Oral Pulse Rate 89 Respiratory Rate 20 H Respiratory Effort Short of Breath Respiratory Pattern Normal Blood Pressure 110/79 Blood Pressure Mean 89 Pulse Ox 98 98 Oxygen Delivery Method Nasal Cannula Nasal Cannula Oxygen Flow Rate (L/min) 3 3 05/07/21 15:29 Temperature Temperature Source Pulse Rate 95 Respiratory Rate 20 H Respiratory Effort Respiratory Pattern Blood Pressure 120/66 Blood Pressure Mean 84 Pulse Ox 96 Oxygen Delivery Method Nasal Cannula Oxygen Flow Rate (L/min) 3 Positive well nourished, well developed and obese General Appearance ED: well developed and NAD Nutritional Appearance: obese HEENT Reports moist mucous membranes Neck supple and no JVD Resp normal respiratory effort Auscultation: diminished lung sounds diffuse Cardio regular rate Rhythm: abnormal rhythm irregularly irregular GI normal to inspection, nondistended, normoactive bowel sounds and non-tender Palpation: soft Extremity Extremity Narrative: There is 4+ pitting edema of the lower extremities and lower abdomen. General Extremety ED: Yes edema General Extremity: edema Neuro oriented x3, CN's II-XII intact bilaterally and no sensory deficits noted Sensorium / Orientation: alert Motor Exam: strength 5/5 throughout Psych mental status grossly normal MDM MDM MDM Narrative Medical decision making narrative: EKG was obtained. On my interpretation, it shows atrial fibrillation with a rate of 88. There are nonspecific ST-T wave changes in leads V1 through V3. This is unchanged compared to previous EKG dated 01/24/2021. Portable chest x-ray was obtained. There is 1 view. On my interpretation, there is evidence of congestive heart failure. There is no acute infiltrate noted. There is borderline cardiomegaly. There is a large hiatal hernia noted. Radiologist also interpreted the x-ray and agrees. Case was discussed with Dr. Torres. Since her labs are basically unchanged from her prior visit, we do not feel the patient needs to be admitted to the hospital at this time. He recommended adding spironolactone to her Lasix for a week. He will follow up with her as an outpatient. Patient understands and is agreeable with the plan. All questions were answered. Lab Data Labs: Laboratory Results - last 24 hr 05/07/21 05/07/21 05/07/21 13:37 13:37 13:37 WBC 4.2 L RBC 4.02 L Hgb 9.4 L Hct 33.4 L MCV 83.1 MCH 23.4 L MCHC 28.1 L RDW Std Deviation 56.7 H RDW Coeff of Claudia 18.8 H Plt Count 240 MPV 10.7 Immature Gran % (Auto) 0.200 Neut % (Auto) 65.4 Lymph % (Auto) 14.4 L [place] % (Auto) 12.7 H Eos % (Auto) 6.1 H Baso % (Auto) 1.2 H Absolute Neuts (auto) 2.8 Absolute Lymphs (auto) 0.61 L Nucleated RBC % 0 Sodium 138 Potassium 4.2 Chloride 97 L Carbon Dioxide 37.0 H Anion Gap 4 L BUN 22 H Creatinine 1.21 H Estim Creat Clear Calc 43.38 Est GFR (MDRD) Af Amer 58 L Est GFR (MDRD) Non-Af 48 L BUN/Creatinine Ratio 18.2 Glucose 125 H Calcium 9.5 Total Bilirubin 1.20 H AST 39 H ALT 16 Alkaline Phosphatase 76 Troponin I High Sens 14 B-Natriuretic Peptide 325.7 H Total Protein 8.3 H Albumin 3.3 Globulin 5.0 H Albumin/Globulin Ratio 0.7 L Radiography Chest X-Ray - ED: 1 View, Read by ED Physician, Read by Radiologist and CHF EKG Initial EKG: Attestation: I personally reviewed and interpreted this EKG as follows: Interpretation: Atrial Fibrillation (88) and Non-Specific ST Changes Prior EKG tracings: available for review Prior: Unchanged (01/24/2021) Discharge Plan Triage Chief Complaint: Edema ED Provider: Nnamdi Skaggs Dx/Rx/DC Orders Clinical Impression: Anasarca Instructions: ED Peripheral Edema, Bilateral Prescriptions: New spironolactone 25 mg tablet 25 mg PO DAILY Qty: 7 RF: 0 No Action cholecalciferol (vitamin D3) 125 mcg (5,000 unit) capsule 2,000 unit PO DAILY RF: 0 calcium carb-magnesium carb 250 - 300 mg PO DAILY RF: 0 acetaminophen [Tylenol] 325 mg tablet 650 mg PO Q6H PRN PRN (Reason: Pain 1-10 Or Fever) RF: 0 ferrous sulfate 325 MG tablet 325 mg PO DAILY RF: 0 vitamin B complex [B Complex-Vitamin B12] Tablet 1 tab PO DAILY RF: 0 omeprazole 20 mg Capsule,Delayed Release(Dr/Ec) 20 mg PO DAILY RF: 0 metoprolol tartrate 50 mg tablet 25 mg PO BID RF: 0 magnesium hydroxide [Milk of Magnesia] 400 mg/5 mL Suspension 30 ml PO DAILY PRN (Reason: Constipation) RF: 0 albuterol sulfate 2.5 mg/0.5 mL Solution For Nebulization 2.5 mg INHALATION Q6H PRN (Reason: Shortness Of Breath) RF: 0 diltiazem HCl 60 mg capsule,extended release 12 hr 60 mg PO Q12 RF: 0 mineral oil [Enema] Enema 118 ml DC DAILY PRN (Reason: Constipation) RF: 0 bisacodyl 10 mg Suppository 10 mg DC DAILY PRN (Reason: Constipation) RF: 0 warfarin 5 mg Tablet 5 mg PO MOWEFR RF: 0 docusate sodium [Colace] 100 mg Capsule 100 mg PO BID RF: 0 furosemide 20 mg Tablet 60 mg PO DAILY RF: 0 Flonase Sensimist 27.5 mcg/actuation [place],Suspension 1 spray INTRANASAL QHS RF: 0 zinc oxide 40 % Ointment 1 applic TOPICAL TID RF: 0 potassium chloride 20 mEq Tablet Extended Release 40 meq PO DAILY RF: 0 furosemide [Lasix] 80 mg tablet 40 mg PO QHS RF: 0 warfarin 5 mg tablet 3 mg PO SUTUTHSA RF: 0 Primary Care Provider: Joe Torres Referrals: Joe Torres MD [Primary Care Provider] - 5-7 Days Disposition Disposition: Alf Facility Discharge Location: [facility]
[2021-05-07 15:24] LABS: ALB/GLOB Ratio 0.7 RATIO (0.9-2.4); AST(SGOT) 39 U/L (15-37); Alanine Aminotransfer ALT/SGPT 16 U/L (13-56); Albumin, Serum 3.3 g/dL (3.2-5.0); Alkaline Phosphatase 76 U/L (45-117); Anion Gap 4 (5-15); BNP,B-Type NATRIURETIC PEPTIDE 325.7 pg/mL (0-100); BUN 22 mg/dL (7-18); BUN/Creat Ratio 18.2 RATIO (10-20); Calcium,Total 9.5 mg/dL (8.5-10.1); Chloride 97 mmol/L (98-107); Creatinine, Serum 1.21 mg/dL (0.55-1.02); EST Glomerular Filtration Rate 48 mL/min (>60); Est Glom Filt Rate - Afr Amer 58 mL/min (>60); Estimated Creatinine Clearance 43.38 ml/min; Glucose 125 mg/dL (74-106); Potassium 4.2 mmol/L (3.5-5.1); Protein, Total 8.3 g/dL (6.4-8.2); Sodium Level 138 mmol/L (136-145); Troponin-I HS 14 pg/mL (3.0-54.0)
[2021-05-07 15:29] VITALS: BP 120/66; PULSE 95; RESP 20; O2SAT 96
[2021-05-07] MEDS: Spironolactone 25 MG Tablet PO (16:12)
[2021-05-07 16:13] VITALS: BP 131/99; PULSE 91; RESP 21; O2SAT 99
--- NOTE | 2021-05-07 16:20 | ED.RN ---
THIS RN CALLED REPORT BACK TO [facility] AND GAVE REPORT BACK TO NURSE JENNIFER. PT IV D/C AND COVERED WITH 2X2 GAUZE AND PAPER TAPE. PT EDUCATED ON D/C INSTRUCTIONS AND NEW PRESCRIPTION. JENNIFER GIVEN FULL REPORT OF PT CARE AND D/C INSTRUCTIONS BACK TO THE SHELTER. PT AWAITING RIDE.
--- NOTE | 2021-06-25 10:25 | CASEMGMT ---
Referral was put in computer for Hospice. PHIL called [facility] and made referral. SW also faxed information. Sagrario Philip CONTACT CENTER REP OLGA
== END 2021-05-07 17:12 | disposition skilled nursing facility (03) ==
PROVIDERS: Emergency Provider Emergency Medicine; PCP Family Medicine
DX: R60.1 Generalized edema (principal); M19.90 Unspecified osteoarthritis, unspecified site; F32.A Depression, unspecified; K21.9 Gastro-esophageal reflux disease without esophagitis; E78.5 Hyperlipidemia, unspecified; I13.0 Hypertensive heart and chronic kidney disease with heart failure and stage 1 through stage 4 chronic kidney disease, or unspecified chronic kidney disease; I50.9 Heart failure, unspecified; N18.30 Chronic kidney disease, stage 3 unspecified; E66.9 Obesity, unspecified; Z79.01 Long term (current) use of anticoagulants; Z79.899 Other long term (current) drug therapy; Z87.891 Personal history of nicotine dependence
CPT/HCPCS: 71045; 80053; 83880; 84484; 85025; 93005; 99285

== ENCOUNTER 2021-06-23 05:51 | Inpatient (IN) | payer MEDICARE, MEDICAID, SELFPAY ==
[2021-06-23] VITALS (28 sets, daily range): BP systolic 89–130; BP diastolic 61–89; PULSE 99–129; RESP 12–25; TEMP 36.6–37.4; O2SAT 90–100; BMI 56.5; BMI 58.5
--- NOTE | 2021-06-23 06:09 | RAD_ITS ---
HISTORY: SOB EXAMINATION/TECHNIQUE: XR Chest 1 View portable AP view COMPARISON: None FINDINGS: LINES/DEVICES: None. LUNGS: Near-complete opacification of right hemithorax with mild rightward mediastinal shift compatible with right lung volume loss. Suspect superimposed right pleural effusion. Left basilar opacification with retrocardiac lucency possibly representing large hiatal hernia. No pneumothorax detected. MEDIASTINUM AND CARDIOVASCULAR STRUCTURES: Right heart shadow is obscured. Mild rightward mediastinal shift. BONES AND SOFT TISSUES: Skeletal degenerative changes. RAD/Chest 1 View (Portable) IMPRESSION: Volume loss and near-complete opacification of right lung may represent a combination of airspace consolidation, atelectasis and right pleural effusion. Left basilar atelectasis versus infiltrate with possible large retrocardiac hiatal hernia. at [id number] Reported and signed by: Giacomo Tolliver MD Electronically Signed: Giacomo Tolliver MD at 7:07 EST Tel , Service support ,
--- NOTE | 2021-06-23 06:09 | EKG12_ITS ---
Test Reason : DYSRHYTHMIA Blood Pressure : / mmHG Vent. Rate : 125 BPM Atrial Rate : 117 BPM P-R Int : 000 ms QRS Dur : 112 ms QT Int : 320 ms P-R-T Axes : 000 107 -18 degrees QTc Int : 461 ms Atrial fibrillation Nonspecific T wave abnormality Abnormal ECG Confirmed by BEST STEWART, SAI ([id number]), editor managing director BENJI TONG ([id number]) on 06/24/2021 9:26:56 AM Referred By: MIRANDA Confirmed By:SAI JEWELL MD
[2021-06-23] MEDS: dexAMETHasone 10 MG/ML Vial 6 MG IV (06:20)
[2021-06-23 06:23] LABS: Absolute Lymphocyte Count 0.51 X10^3/uL (0.83-4.51); Absolute Neutrophil Count 3.6 X10^3/uL (2.0-7.7); Basophil# 0.01 X10^3/uL; Basophil% 0.2 % (0-1); Eosinophil# 0.02 X10^3/uL; Eosinophils% 0.4 % (0-5); Hemoglobin 10.6 g/dL (12.0-15.0); Lymphocyte # 0.51 X10^3/ul (0.83-4.51); Lymphocyte % 10.6 % (19-41); Mean Corp Hgb Conc 27.2 g/dL (32-36); Mean Corpuscular Hgb 21.9 pg (27.0-32.0); Mean Corpuscular Volume 80.4 fL (81-99); Mean Platelet Vol. 10.9 fl (6.2-12.0); Monocyte# 0.62 X10^3/uL; Monocyte% 12.9 % (0-10); NRBC Flagged by Analyzer 0.8 % (0-5); Neutrophil # 3.56 X10^3/uL (2.7-7.7); Neutrophil % 74.2 % (47-70); POSITIVE DIFFERENTIAL YES; POSITIVE MORPHOLOGY YES; Platelet Count 155 K/mm3 (150-450); RBC Distribution Width CV 20.2 % (11.6-14.6); RBC Distribution Width SD 58.2 fl (35.1-43.9); Red Blood Count 4.85 M/mm3 (4.2-5.4); White Blood Count 4.8 K/mm3 (4.4-11.0)
[2021-06-23 06:24] LABS: Differential Indicated SCAN CRITERIA MET
[2021-06-23 06:40] LABS: Anisocytosis 1+; Differential Comment SCANNED; Microcytosis 1+; Ovalocyte RARE
[2021-06-23 06:45] LABS: Anion Gap 4 (5-15); BUN 16 mg/dL (7-18); BUN/Creat Ratio 14.5 RATIO (10-20); Chloride 90 mmol/L (98-107); EST Glomerular Filtration Rate 53 mL/min (>60); Est Glom Filt Rate - Afr Amer 65 mL/min (>60); Estimated Creatinine Clearance 45.79 ml/min; Glucose 133 mg/dL (74-106); Potassium 3.8 mmol/L (3.5-5.1); Sodium Level 136 mmol/L (136-145); Troponin-I HS 56 pg/mL (3.0-54.0)
[2021-06-23 06:54] LABS: Lactic Acid 2.1 mmol/L (0.4-1.9)
[2021-06-23] MEDS: Albuterol 2.5 MG/3 ML VIAL.NEB. INHALATION (06:59)
[2021-06-23] MEDS: Ipratropium/Albuterol Sulfate 3 ML AMPUL.NEB INHALATION (06:59)
--- NOTE | 2021-06-23 07:20 | EX.ED.DYSGE1 ---
HPI History of Present Illness Chief Complaint: Shortness of Breath Informant: patient and EMS Narrative Narrative: Patient history is somewhat limited. She will answer simple questions but is not real verbal. We were reported that this is her normal. She was recently diagnosed with COVID. I do not know the date when this occurred. I do not know if she has been vaccinated. She was sent in tonight due to worsening dyspnea and hypoxia. It sounds like she is on oxygen possibly as high as 4 L normally. She also uses BiPAP at night normally. Nursing facility had talked with her daughter. They told her that she would likely pass away within a few hours and there was not a need to transfer to the emergency department. This was later information I got after I talk with the daughter. However the daughter did want her transferred. My understanding is that the patient is DNR Comfort Care arrest and that is the paperwork that we have. The daughter did state that she knows her mother would not want to be on a ventilator or have CPR. Past medical history is atrial fibrillation, DVT and possible PE, congestive heart failure, COPD, depression, arthritis, hyperkalemia, prior smoker Medication list is reviewed. She is on Coumadin. Allergy to Lovenox Surgery includes cholecystectomy and oral surgery Currently lives at nursing facility, is a former smoker [facility] Medical History Acute and chronic respiratory failure Afib Age-related physical debility CHF (congestive heart failure) CKD (chronic kidney disease) stage 3, GFR 30-59 ml/min COPD (chronic obstructive pulmonary disease) GERD (gastroesophageal reflux disease) HTN (hypertension) Iron deficiency anemia STACEY treated with BiPAP Physical debility Home Medications albuterol sulfate 2.5 mg Q6H PRN PRN 06/23/21 [History Last Taken Unknown] bisacodyl 10 mg [place] DAILY PRN 06/23/21 [History Last Taken Unknown] dexamethasone 6 mg PO DAILY 06/23/21 [History Last Taken Unknown] diltiazem HCl 60 mg PO Q12H 06/23/21 [History Last Taken Unknown] ferrous sulfate 325 mg PO DAILY 06/23/21 [History Last Taken Unknown] fluticasone propionate [Flonase] 2 spray INTRANASAL DAILY 06/23/21 [History Last Taken Unknown] fluvoxamine 50 mg PO QHS 06/23/21 [History Last Taken Unknown] furosemide [Lasix] 80 mg PO BID 06/23/21 [History Last Taken Unknown] metoprolol tartrate [Lopressor] 25 mg PO BID 06/23/21 [History Last Taken Unknown] omeprazole 40 mg PO DAILY 06/23/21 [History Last Taken Unknown] warfarin [Coumadin] 1 mg PO LUNCH 06/23/21 [History Last Taken Unknown] Allergy/AdvReac Type Severity Reaction Status Date / Time enoxaparin [From Lovenox] Allergy PT UNSURE Verified 06/23/21 06:12 OF REACTION green tea Allergy PT UNSURE Verified 06/23/21 06:12 OF REACTION peach Allergy PT UNSURE Verified 06/23/21 06:12 OF REACTION Social History Smoking Status: Unknown if ever smoked ROS ROS ED ROS Narrative Patient will ask and answer simple questions. But she does not always answer so her review of systems is severely limited. Constitutional Constitutional ED: Denies fever(s) Cardiovascular Cardiovascular: Denies chest pain Respiratory/Chest Respiratory/Chest: Reports cough and dyspnea Gastrointestinal Gastrointestinal: Denies vomiting Neurologic Neurologic: Denies headache(s) Allergic/Immunologic Allergic/Immunologic ED: Denies urticaria EXAM Physical Exam Const Vital Signs: 06/23/21 05:51 06/23/21 05:58 06/23/21 06:12 Temperature 98.8 F 98.8 F Temperature Source Temporal Temporal Pulse Rate 120 H 118 H 129 H Respiratory Rate 20 H 22 H 23 H Respiratory Effort Short of Breath Labored Respiratory Depth Shallow Respiratory Pattern Tachypnea Blood Pressure 119/79 119/79 Blood Pressure Mean 92 92 Pulse Ox 96 97 91 Oxygen Delivery Method Non-Rebreather Non-Rebreather Bi-pap Oxygen Flow Rate (L/min) 15 15 Fraction of Inspired Oxygen (FIO2) 100 06/23/21 06:16 06/23/21 06:55 06/23/21 07:00 Temperature 99.3 F H 98.4 F Temperature Source Temporal Temporal Pulse Rate 113 H 115 H Respiratory Rate 24 H 22 H Respiratory Effort Short of Breath Respiratory Depth Respiratory Pattern Tachypnea Blood Pressure 125/89 H 101/84 H Blood Pressure Mean 101 89 Pulse Ox 95 91 Oxygen Delivery Method Bi-pap Bi-pap Bi-pap Oxygen Flow Rate (L/min) Fraction of Inspired Oxygen (FIO2) 100 100 06/23/21 07:01 06/23/21 07:26 06/23/21 08:00 Temperature 98 F Temperature Source Temporal Pulse Rate 110 H 105 H Respiratory Rate 17 18 Respiratory Effort Respiratory Depth Respiratory Pattern Normal Blood Pressure 93/63 Blood Pressure Mean 73 Pulse Ox 91 95 96 Oxygen Delivery Method Bi-pap Bi-pap Oxygen Flow Rate (L/min) Fraction of Inspired Oxygen (FIO2) 100 Patient does have increased work of breathing. She is awake she is alert she looks around the room. When we checked her temperature she asked what temperature we got. But she does not answer a lot of questions. We were told that this was normal and she had a neurologic condition that made her not talk much. However I do not see this in her chart. Her daughter was also not familiar with this. I initially did not have access to her chart. I thought she had never been here before. But evidently she was originally registered with the last name Jason. They then got her name Boris. However it is a different medical record number. Positive well nourished, well developed and obese General Appearance ED: well developed; Negative for cyanotic, diaphoretic or pallor Nutritional Appearance: obese HEENT Reports moist mucous membranes Negative for trauma Eyes General Eye ED: Negative for pale conjunctiva Neck no JVD Resp No normal respiratory effort and No clear to auscultation bilaterally Resp Narrative: Increased work of breathing. She has some expiratory wheeze but she also has coarse breath sounds. She has decreased breath sounds at the base and mostly on the right has decreased breath sounds. No subcutaneous air. Auscultation: rhonchi, wheezes and diminished lung sounds Cardio Negative for regular rate or regular rhythm Rate: tachycardic and other Other Details: Patient appears to be in atrial fibrillation. She does have a history of this. Rhythm: abnormal rhythm GI normal to inspection, nondistended, normoactive bowel sounds and non-tender GI Narrative: Abdomen is obese. There does appear to be anasarca which is evidently not new. There is no apparent tenderness. Palpation: soft Extremity Extremity Narrative: Bilateral peripheral edema with pitting and chronic venous stasis changes below the knee. General Extremety ED: Yes edema General Extremity: edema Neuro Neuro Narrative: We will ask appropriate questions at times. She seems to answer appropriately. She prefers to nod yes and no but seems to do this correctly. Psych Psych Narrative: Mildly suppressed but she does open her eyes and talk when asked questions. Skin no rashes or lesions noted Skin Narrative: No diaphoresis. General Skin Exam: Negative for jaundice or pallor MDM MDM MDM Narrative Medical decision making narrative: Patient CBC shows some mild anemia at 10.6. However, she was 9.4 back at the beginning of May. We had to find this on the patient's other chart number. Electrolytes showed mild elevation of creatinine at 1.1. However she had been 1.21 before. Bicarb is been 37 and now is up a bit higher at 42. Troponin was minimally elevated at 56. BNP was elevated at 553. Her last 2 BNP's were 325 and 339. Lactic acid was mildly elevated at 2.1. X-ray shows significant white out on the right side. I do not think this is bleeding even though she has an INR at 9.0. Her hemoglobin is actually higher not lower than the last. Patient does have worsening hypoxia, she will need to be admitted. I did give her breathing treatments and Decadron. She states she does feel comfortable on BiPAP at 14 and 7. She was initially placed on 100% oxygen and we're weaning that now. ABG is being drawn. I have hospitalist on page. The daughter did just get here and verified that the patient is not to be intubated and no CPR. This is consistent with the paperwork already available. Lab Data Attestation: I reviewed the patient's lab results. Labs: Laboratory Results - last 24 hr 06/23/21 06/23/21 06/23/21 06:00 06:00 06:00 WBC 4.8 RBC 4.85 Hgb 10.6 L Hct 39.0 MCV 80.4 L MCH 21.9 L MCHC 27.2 L RDW Std Deviation 58.2 H RDW Coeff of Claudia 20.2 H Plt Count 155 MPV 10.9 Immature Gran % (Auto) 1.700 H Neut % (Auto) 74.2 H Lymph % (Auto) 10.6 L [place] % (Auto) 12.9 H Eos % (Auto) 0.4 Baso % (Auto) 0.2 Absolute Neuts (auto) 3.6 Absolute Lymphs (auto) 0.51 L Nucleated RBC % 0.8 Differential Comment SCANNED Anisocytosis 1+ Microcytosis 1+ Ovalocytes RARE PT INR Sodium 136 Potassium 3.8 Chloride 90 L Carbon Dioxide 42.0 H Anion Gap 4 L BUN 16 Creatinine 1.10 H Estim Creat Clear Calc 45.79 Est GFR (MDRD) Af Amer 65 Est GFR (MDRD) Non-Af 53 L BUN/Creatinine Ratio 14.5 Glucose 133 H Lactic Acid Calcium 9.0 Troponin I High Sens 56 H B-Natriuretic Peptide 553.6 H 06/23/21 06/23/21 06/23/21 06:00 06:00 06:45 WBC RBC Hgb Hct MCV MCH MCHC RDW Std Deviation RDW Coeff of Claudia Plt Count MPV Immature Gran % (Auto) Neut % (Auto) Lymph % (Auto) [place] % (Auto) Eos % (Auto) Baso % (Auto) Absolute Neuts (auto) Absolute Lymphs (auto) Nucleated RBC % Differential Comment Anisocytosis Microcytosis Ovalocytes PT Cancelled 73.0 H INR Cancelled 9.0 H* Sodium Potassium Chloride Carbon Dioxide Anion Gap BUN Creatinine Estim Creat Clear Calc Est GFR (MDRD) Af Amer Est GFR (MDRD) Non-Af BUN/Creatinine Ratio Glucose Lactic Acid 2.1 H* Calcium Troponin I High Sens B-Natriuretic Peptide EKG Initial EKG: Comments: EKG done for dyspnea and tachycardia read by me shows atrial fibrillation with a rate of 125. No ventricular ectopy. QRS duration and QTc normal. Discharge Plan Triage Chief Complaint: Shortness of Breath ED Provider: Bautista Vargas Dx/Rx/DC Orders Clinical Impression: Respiratory failure with hypoxia, Pneumonia due to 2019 novel coronavirus, Lactic acidosis, Elevated troponin Prescriptions: No Action dexamethasone 6 mg Tablet 6 mg PO DAILY RF: 0 furosemide [Lasix] 80 mg Tablet 80 mg PO BID RF: 0 bisacodyl 10 mg Suppository 10 mg [place] DAILY PRN (Reason: Constipation) RF: 0 ferrous sulfate 325 mg (65 mg iron) Tablet 325 mg PO DAILY RF: 0 metoprolol tartrate [Lopressor] 50 mg Tablet 25 mg PO BID RF: 0 fluvoxamine 50 mg Tablet 50 mg PO QHS RF: 0 diltiazem HCl 60 mg Capsule,Extended Release 12 Hr 60 mg PO Q12H RF: 0 fluticasone propionate [Flonase] 50 mcg/actuation [place],Suspension 2 spray INTRANASAL DAILY RF: 0 albuterol sulfate 2.5 mg/0.5 mL Solution For Nebulization 2.5 mg Q6H PRN PRN (Reason: Shortness Of Breath) RF: 0 omeprazole 40 mg Capsule,Delayed Release(Dr/Ec) 40 mg PO DAILY RF: 0 warfarin [Coumadin] 1 mg Tablet 1 mg PO LUNCH RF: 0 Primary Care Provider: Joe Torres Referrals: Joe Torres MD [Primary Care Provider] - Disposition Disposition: Acute Care Hospital [facility]
[2021-06-23 08:03] LABS: BNP,B-Type NATRIURETIC PEPTIDE 553.6 pg/mL (0-100)
--- NOTE | 2021-06-23 08:30 | NURSING ---
DR NATHAN BAILON
--- NOTE | 2021-06-23 08:41 | NURSING ---
DR EVANS IN ER
--- NOTE | 2021-06-23 08:52 | NURSING ---
MED SURG NATHAN GALICIA PNEUMONIA, RESP FAILURE WITH HYPOXIA
--- NOTE | 2021-06-23 09:03 | PCM.HP.STD ---
HPI - General General Date of Admission: 06/23/21 Date of Service: 06/23/21 Chief Complaint: SOB HPI Narrative 58-year-old female presents with shortness of breath. Patient is a poor historian so history obtained through emergency room physician. Patient was put on oxygen nonrebreather then BiPAP. Patient has remained stable on BiPAP. Patient had a chest x-ray that showed a right-sided pleural effusion. Patient recently was tested positive for COVID-19 and patient has been vaccinated. Patient received dexamethasone in the emergency room. The hospital service was contacted for admission. Of note, patient has been admitted here previously under the name Cathryn Long and much of her medical records are not under the current N. [facility] Medical History Acute and chronic respiratory failure Afib Age-related physical debility CHF (congestive heart failure) CKD (chronic kidney disease) stage 3, GFR 30-59 ml/min COPD (chronic obstructive pulmonary disease) GERD (gastroesophageal reflux disease) HTN (hypertension) Iron deficiency anemia STACEY treated with BiPAP Physical debility Home Medications albuterol sulfate 2.5 mg Q6H PRN PRN 06/23/21 [History Last Taken Unknown] bisacodyl 10 mg SC DAILY PRN 06/23/21 [History Last Taken Unknown] dexamethasone 6 mg PO DAILY 06/23/21 [History Last Taken Unknown] diltiazem HCl 60 mg PO Q12H 06/23/21 [History Last Taken Unknown] ferrous sulfate 325 mg PO DAILY 06/23/21 [History Last Taken Unknown] fluticasone propionate [Flonase] 2 spray INTRANASAL DAILY 06/23/21 [History Last Taken Unknown] fluvoxamine 50 mg PO QHS 06/23/21 [History Last Taken Unknown] furosemide [Lasix] 80 mg PO BID 06/23/21 [History Last Taken Unknown] metoprolol tartrate [Lopressor] 25 mg PO BID 06/23/21 [History Last Taken Unknown] omeprazole 40 mg PO DAILY 06/23/21 [History Last Taken Unknown] warfarin [Coumadin] 1 mg PO LUNCH 06/23/21 [History Last Taken Unknown] Allergy/AdvReac Type Severity Reaction Status Date / Time enoxaparin [From Lovenox] Allergy PT UNSURE Verified 06/23/21 06:12 OF REACTION green tea Allergy PT UNSURE Verified 06/23/21 06:12 OF REACTION peach Allergy PT UNSURE Verified 06/23/21 06:12 OF REACTION unable to obtain unable to obtain Social History Smoking Status: Unknown if ever smoked ROS Review of Systems ROS Unobtainable: due to encephalopathy Vital Signs Vital Signs Vital Signs: 06/23/21 05:51 06/23/21 05:58 06/23/21 06:12 Temperature 37.1 C 37.1 C Temperature Source Temporal Temporal Pulse Rate 120 H 118 H 129 H Respiratory Rate 20 H 22 H 23 H Respiratory Effort Short of Breath Labored Respiratory Depth Shallow Respiratory Pattern Tachypnea Blood Pressure 119/79 119/79 Blood Pressure Mean 92 92 Pulse Ox 96 97 91 Oxygen Delivery Method Non-Rebreather Non-Rebreather Bi-pap Oxygen Flow Rate (L/min) 15 15 Fraction of Inspired Oxygen (FIO2) 100 06/23/21 06:16 06/23/21 06:55 06/23/21 07:00 Temperature 37.4 C H 36.9 C Temperature Source Temporal Temporal Pulse Rate 113 H 115 H Respiratory Rate 24 H 22 H Respiratory Effort Short of Breath Respiratory Depth Respiratory Pattern Tachypnea Blood Pressure 125/89 H 101/84 H Blood Pressure Mean 101 89 Pulse Ox 95 91 Oxygen Delivery Method Bi-pap Bi-pap Bi-pap Oxygen Flow Rate (L/min) Fraction of Inspired Oxygen (FIO2) 100 100 06/23/21 07:01 06/23/21 07:26 06/23/21 08:00 Temperature 36.6 C Temperature Source Temporal Pulse Rate 110 H 105 H Respiratory Rate 17 18 Respiratory Effort Respiratory Depth Respiratory Pattern Normal Blood Pressure 93/63 Blood Pressure Mean 73 Pulse Ox 91 95 96 Oxygen Delivery Method Bi-pap Bi-pap Oxygen Flow Rate (L/min) Fraction of Inspired Oxygen (FIO2) 100 06/23/21 08:42 06/23/21 08:50 Temperature 36.8 C Temperature Source Temporal Pulse Rate 114 H 105 H Respiratory Rate 19 H 18 Respiratory Effort Respiratory Depth Respiratory Pattern Normal Blood Pressure 113/74 Blood Pressure Mean 87 Pulse Ox 93 98 Oxygen Delivery Method Bi-pap Oxygen Flow Rate (L/min) Fraction of Inspired Oxygen (FIO2) 90 Weight Weight: 149.5 kg Body Mass Index (BMI) 56.5 Physical Exam Const Constitutional Narrative: Groggy. Afebrile. HEENT normocephalic, head/scalp atraumatic and hearing grossly normal bilaterally Eyes Eyes Narrative: No icterus Neck no lymphadenopathy Resp Resp Narrative: Limited. Coarse breath sounds bilaterally. Cardio regular rate, regular rhythm, S1 normal heart sound and S2 normal heart sound GI normal to inspection, nondistended, normoactive bowel sounds, soft to palpation, non-tender and non-distended Extremity Extremity Narrative: Bilateral lower extremity edema Skin Skin Narrative: Venous stasis changes to lower extremities bilaterally Results Lab / Micro Data Attestation: I reviewed the patient's lab results. Result Diagrams: 06/23/21 06:00 06/23/21 06:00 Labs: Laboratory Results - last 24 hr 06/23/21 06:00: WBC 4.8, RBC 4.85, Hgb 10.6 L, Hct 39.0, MCV 80.4 L, MCH 21.9 L, MCHC 27.2 L, RDW Std Deviation 58.2 H, RDW Coeff of Claudia 20.2 H, Plt Count 155, MPV 10.9, Immature Gran % (Auto) 1.700 H, Neut % (Auto) 74.2 H, Lymph % (Auto) 10.6 L, Wallace % (Auto) 12.9 H, Eos % (Auto) 0.4, Baso % (Auto) 0.2, Absolute Neuts (auto) 3.6, Absolute Lymphs (auto) 0.51 L, Nucleated RBC % 0.8, Differential Comment SCANNED, Anisocytosis 1+, Microcytosis 1+, Ovalocytes RARE 06/23/21 06:00: Sodium 136, Potassium 3.8, Chloride 90 L, Carbon Dioxide 42.0 H, Anion Gap 4 L, BUN 16, Creatinine 1.10 H, Estim Creat Clear Calc 45.79, Est GFR (MDRD) Af Amer 65, Est GFR (MDRD) Non-Af 53 L, BUN/Creatinine Ratio 14.5, Glucose 133 H, Calcium 9.0, Troponin I High Sens 56 H 06/23/21 06:00: B-Natriuretic Peptide 553.6 H 06/23/21 06:00: Lactic Acid 2.1 H* 06/23/21 06:00: PT Cancelled, INR Cancelled 06/23/21 06:45: PT 73.0 H, INR 9.0 H* Micro: Microbiology 06/23/21 06:13 Nasal Secretion SARS-CoV-2 Antigen (Rapid) - Final SARS-CoV-2 (COVID 19) EKG Initial EKG: Attestation: I personally reviewed and interpreted this EKG as follows: Prior EKG tracings: available for review EKG Rhythm Intrepretation: Sinus Rhythm Assessment & Plan Assessment/Plan (1) Respiratory failure with hypoxia: QUALIFIERS: Chronicity: acute Qualified Code(s): J96.01 - Acute respiratory failure with hypoxia (2) Pneumonia due to 2019 novel coronavirus: (3) Pleural effusion: (4) Elevated troponin: PLAN: 1. Acute hypoxic respiratory failure Feel this is mostly due to a very large right-sided pleural effusion. Was able to review patient chest x-rays from May which did not show that effusion at that time. Essentially her whole right lung field has been kathi out. I suspect is part related with CHF but cannot rule out exudative or hemothorax On BiPAP Wean as tolerated 2. Right-sided pleural effusion Suspect transudative Patient had a previous echocardiogram that could not assess left-ventricular ejection fraction due to tachycardia we will recheck Diurese as well BP allows Patient would benefit from a thoracentesis but her INR is far too high at this time. 3. Acute COVID-19 pneumonia Positive on the Has been sick for about 2 days Previously vaccinated I feel that the COVID-19 is probably the least of her concerns at this time. I do not feel that the COVID-19 is contributing to her pleural effusion Continue with dexamethasone and remdesivir 4. Elevated troponin Likely due to strain Monitor 6. Coagulopathy INR is 9 Give 10 mg of vitamin K Recheck INR 7. VTE prophylaxis: Patient is already anticoagulated 8. CODE STATUS: Dr. Engle conferred with the patient daughter. Patient is DNR Comfort Care arrest no intubation. Charges/Coding Visit Charges Inpatient E&M: 21256 Init Hosp L3
[2021-06-23 10:16] LABS: Reflex Lactate? Y
--- NOTE | 2021-06-23 10:38 | CASEMGMT ---
RN CM Assessment Introduced role of RN CM to patient daughter Alesia Isabel via phone call. Patient is currently on Bipap in ER and unable to participate in RN CM Assessment. Daughter Alesia verified care providers, pharmacy, and demographics per the best of her Knowledge. Admit Dx: Covid PNA Re-Admit: No Barriers/Issues: Patient went to [facility] in November 2020 as skilled, dtr could not care for patient anymore (patient used to live with dtr Alesia). Patient now Usp? at [facility]. Per dtr Alesia, she is the only child and has not spoke with patient for a few months. Per Adtr Alesia , believes [facility] tested patient for Covid and thought she was also tested at hospital. PCP: Used to be [facility] when patient lived with Dtr Alesia. Now listed as Melissa- Per Alesia, not sure if this is the physician that rounds at the facility. Specialists: None Preferred Pharmacy: Believes [facility] uses their own pharmacy as per Alesia-she does not excelsior picker any medication from anywhere. Insurance: [facility] Mc[employer], [facility] CP Rx Benefit: Yes LNOK: Dtr Alesia Isabel. Patient is still close with her sister Tanya Balderrama. LW/HPOA: None, states patient has refused to complete. ADL?s: States patient is WC/Bed bound with [facility] at baseline but difficult for her tell as [facility] staff will tell her that they are using mateus and patient is soiling herself but other times told that patient went to the bathroom. Transportation: Per Alesia- [facility] always calls squad. DME: Bipap at HS, O2 during the day. Unknown other DME. DC PLAN: [facility] to continue to follow as [facility] is patient residence but most likely cannot return until quarantine completed. JOSHUA Mata
--- NOTE | 2021-06-23 11:02 | CASEMGMT ---
Patient is from [facility]. PHIL called Annmarie at [facility] and left her a voice mail requesting return call. Sagrario ESPINOZA
--- NOTE | 2021-06-23 11:11 | CASEMGMT ---
SW received a call from Annmarie at [facility] and patient can return when she is ready. Patient was positive for COVID when she was at [facility]. Plan: d/c back to [facility] when ready. Sagrario ESPINOZA
--- NOTE | 2021-06-23 11:39 | ECHOD_ITS ---
Reason For Study: CHF Procedure This was a 2D Doppler, Color Flow transthoracic echocardiogram. Limited views were obtained. The study was technically difficult. Pt has a debility and is laying to rt side- in COVID precautions- unable to have pt in proper LLD position for exam. Exam performed portable in patient room. The exam was abbreviated due to the COVID 19 protocol. Left Ventricle Normal LV size. D shaped septum in systole and diastole. The estimated ejection fraction is 50 %. No regional wall motion abnormalities noted. Right Ventricle Severely dilated right ventricle. Moderate global right ventricular systolic dysfunction. Atria The left atrium is moderately enlarged. The right atrium is moderately enlarged. Mitral Valve Normal mitral valve. Mild (1+) anteriorly directed mitral valve insufficiency. Tricuspid Valve Normal tricuspid valve. Moderate (2+) tricuspid valve insufficiency. Pulmonary artery systolic pressure is 58 mmHg. Aortic Valve Trisinus/trileaflet aortic valve. Pulmonic Valve Normal pulmonic valve. Mild (1+) pulmonic valve insufficiency. Great Vessels Normal aortic root. The pulmonary artery is normal size. The inferior vena cava is dilated. Pericardium/Pleural No pericardial effusion. MMode/2D Measurements & Calculations LVIDd: 4.3 cm IVSd: 0.75 cm Ao root diam: 2.6 cm LVIDs: 3.2 cm LVPWd: 0.76 cm RVDd: 4.7 cm FS: 25.0 % LAV(MOD-bp): 66.5 ml LA A4 area: 21.1 cm2 LA dimension(2D): 5.1 cm LAV(MOD-bp) Indexed: 28.8 ml/m2 LAV(MOD-sp2): 68.9 ml LAV(MOD-sp4): 57.9 ml RA A4 area: 26.1 cm2 Doppler Measurements & Calculations PA V2 max: 69.2 cm/sec PI end-d richmond: 149.7 cm/sec TR max richmond: 356.5 cm/sec TR max P.8 mmHg ECHO/Echo Complete Interpretation Summary Normal LV size. The estimated ejection fraction is 50 %. D shaped septum in systole and diastole. The left atrium is moderately enlarged. Pulmonary artery systolic pressure is 58 mmHg. Ordering Physician: Nnamdi Vital Referring Physician: JUAN LEMUS Performed By: Destiney Morley, RDCS, RVT
[2021-06-23 13:03] LABS: Alkaline Phosphatase 77 U/L (45-117); Troponin-I HS 62 pg/mL (3.0-54.0)
[2021-06-23 13:07] LABS: Lactic Acid 1.6 mmol/L (0.4-1.9)
[2021-06-23] MEDS: Furosemide 100 MG/10 ML Vial 80 MG IV ×2 (13:20→18:34)
[2021-06-23 14:38] LABS: Prothrombin Time (Protime)PT. 67.4 SECONDS (11.7-14.9)
[2021-06-23 14:42] LABS: International Normalized Ratio 8.1
[2021-06-23 16:59] LABS: International Normalized Ratio 3.8; Prothrombin Time (Protime)PT. 36.6 SECONDS (11.7-14.9)
[2021-06-23] MEDS: Nystatin Powder 15gm Bottle 1 APPLIC TOPICAL (22:37)
[2021-06-23] MEDS: fluvoxaMINE Maleate 50 MG Tablet PO (22:37)
[2021-06-24] VITALS (31 sets, daily range): BP systolic 75–108; BP diastolic 52–81; PULSE 90–113; RESP 12–22; TEMP 35.9–36.9; O2SAT 20–99
--- NOTE | 2021-06-24 02:44 | CT_ITS ---
We are attempting to reach an attending provider to discuss findings. An addendum with communication details will be sent when the communication is complete. STUDY: CT CHEST WITHOUT CONTRAST REASON FOR EXAM: Female, 60 years old. SOB -- Effusion vs mucus plug RADIATION DOSAGE (If Supplied By Facility): CTDIvol = ( 18.76 ) mGy, DLP = ( 707.81 ) mGycm TECHNIQUE: Transaxial imaging was performed without the administration of intravenous contrast material. Multiplanar coronal and sagittal images were reformatted. Individualized dose optimization techniques were used for this CT. COMPARISON: CT chest January 28, 2021 FINDINGS: There is collapse of the right lung with consolidation and a moderate loculated effusion. There is a fluid filled distended appearance of the right mainstem bronchus from proximal to distal. Multifocal patchy opacities throughout the left lung. There is a small left effusion. There is moderate cardiac enlargement. Normal mediastinum. Normal hilar regions. Normal unenhanced pulmonary arteries. There is atherosclerotic calcification of the aortic arch with tortuosity and elongation of the aortic arch and descending thoracic aorta. Normal osseous structures. There is no demonstrated abnormality of the visualized upper abdomen. CT/Chest without Contrast IMPRESSION: Collapse of the right lung with consolidation with fluid filling the right mainstem bronchus from proximal to distal compatible with mucous plugging and/or infection blocking the right side airways. Recommend consideration for bronchoscopy. Loculated right effusion consolidation of the right lung. Multifocal patchy densities in the left lung suspicious for pneumonia small left effusion. Cardiomegaly. Electronically Signed: Annette Linares MD at 4:03 EST Tel , Service support ,
--- NOTE | 2021-06-24 02:48 | PCM.PN.BLA ---
Progress Note SBP < 70; improved with waking up. In am change lasix IVP to drip. Check CT to r/o mucus plug vs effusion. Parameters on bp already placed on metoprolol and cardizem; and patient did not get these per nurse report.
--- NOTE | 2021-06-24 04:12 | PN_ITS ---
Progress Note CT chest with possible mucous plug of the right; and right lung consolidation; and small left effusion. We will put patient on Mucinex and hypertonic saline. We will consult containers sales representative. Her INR is improved to 3.8. Will give 5 mg of vitamin K.
--- NOTE | 2021-06-24 04:19 | NURSING ---
pt back from ct scan, bath given, inc care given, new linen
[2021-06-24] MEDS: guaiFENesin 1,200 MG Tablet 1200 MG PO (04:30)
[2021-06-24] MEDS: Furosemide 500 MG in Empty Viaflex 50 mL 1 EACH CONT INF (06:30)
[2021-06-24 06:55] LABS: Blood Gas Specimen Type VEN; O2 Delivery Device BiPAP; RR 12; SITE R Radial; VBG BASE EXCESS 23 mmol/L (-1.0-3.5); VBG Bicarbonate 49 mmol/L (22-26); VBG PO2 25 mmHg (25-40); VBG SO2 35 % (50-70); VBG pH 7.31 (7.32-7.42)
[2021-06-24 07:35] LABS: Absolute Lymphocyte Count 0.46 X10^3/uL (0.83-4.51); Absolute Neutrophil Count 4.7 X10^3/uL (2.0-7.7); Hematocrit 35.7 % (37-47); Hemoglobin 9.7 g/dL (12.0-15.0); Lymphocyte # 0.46 X10^3/ul (0.83-4.51); Lymphocyte % 8.1 % (19-41); Mean Corp Hgb Conc 27.2 g/dL (32-36); Mean Corpuscular Hgb 21.7 pg (27.0-32.0); Mean Platelet Vol. 10.6 fl (6.2-12.0); Monocyte# 0.48 X10^3/uL; Monocyte% 8.5 % (0-10); NRBC Flagged by Analyzer 0.9 % (0-5); Neutrophil # 4.68 X10^3/uL (2.7-7.7); Neutrophil % 82.5 % (47-70); POSITIVE DIFFERENTIAL YES; Platelet Count 146 K/mm3 (150-450); RBC Distribution Width CV 19.9 % (11.6-14.6); RBC Distribution Width SD 57.1 fl (35.1-43.9); Red Blood Count 4.46 M/mm3 (4.2-5.4); White Blood Count 5.7 K/mm3 (4.4-11.0)
[2021-06-24 07:41] LABS: Differential Indicated SCAN CRITERIA MET
[2021-06-24 08:01] LABS: ALB/GLOB Ratio 0.7 RATIO (0.9-2.4); AST(SGOT) 47 U/L (15-37); Alanine Aminotransfer ALT/SGPT 20 U/L (13-56); Alkaline Phosphatase 72 U/L (45-117); Anion Gap 5 (5-15); BUN 19 mg/dL (7-18); BUN/Creat Ratio 18.1 RATIO (10-20); Calcium,Total 8.6 mg/dL (8.5-10.1); Chloride 92 mmol/L (98-107); Creatinine, Serum 1.05 mg/dL (0.55-1.02); EST Glomerular Filtration Rate 56 mL/min (>60); Est Glom Filt Rate - Afr Amer 68 mL/min (>60); Estimated Creatinine Clearance 43.94 ml/min; Globulin 4.5 g/dL (2.2-4.2); Glucose 110 mg/dL (74-106); Potassium 3.1 mmol/L (3.5-5.1); Protein, Total 7.5 g/dL (6.4-8.2); Sodium Level 139 mmol/L (136-145)
[2021-06-24 08:19] LABS: International Normalized Ratio 1.8; Prothrombin Time (Protime)PT. 19.9 SECONDS (11.7-14.9)
[2021-06-24 08:23] LABS: Differential Comment SCANNED
[2021-06-24] MEDS: dexAMETHasone 10 MG/ML Vial 6 MG IV (09:19)
[2021-06-24] MEDS: Nystatin Powder 15gm Bottle 1 APPLIC TOPICAL ×2 (09:20→22:28)
[2021-06-24] MEDS: 0.9% Saline Lock 10 ML Syringe IV (09:21)
[2021-06-24] MEDS: Potassium Chloride Oral Tablet 20 MEQ 40 MEQ PO (10:52)
[2021-06-24 10:59] LABS: VBG TCO2 > 50 mmol/L (23-33)
--- NOTE | 2021-06-24 11:33 | PN.HOSP_ITS ---
Documented by User: Tony AVILEZ 06/24/21 11:53 Subjective Subjective Patient is currently requiring BiPap at an FIO2 of 100 and is satting 91%. Still reports feeling short of breath. No acute distress noted. Objective Data Objective Data Vital Signs: Vital Signs Temp Pulse Resp BP Pulse Ox 97.7 F L 98 13 88/63 L 91 06/24/21 09:15 06/24/21 09:15 06/24/21 09:15 06/24/21 09:15 06/24/21 09:15 Oxygen Flow Rate (L/min) 15 Oxygen Delivery Method Bi-pap Weight: 320 lb 15.889 oz Body Mass Index (BMI) 58.5 Intake & Output: Intake and Output for Last 24 Hours 06/22/21 06/23/21 06/24/21 23:59 23:59 23:59 Intake Total 380.75 / 380.75 101.0 / 101.0 Balance 380.75 / 380.75 101.0 / 101.0 Lab / Micro Data Result Diagrams: 06/24/21 06:46 06/24/21 06:46 Labs: Laboratory Results - last 24 hr 06/23/21 12:30: Lactic Acid 1.6 06/23/21 12:30: Alkaline Phosphatase 77, Troponin I High Sens 62 H 06/23/21 14:20: PT 67.4 H, INR 8.1 H* 06/23/21 16:35: PT 36.6 H, INR 3.8 06/24/21 06:46: WBC 5.7, RBC 4.46, Hgb 9.7 L, Hct 35.7 L, MCV 80.0 L, MCH 21.7 L , MCHC 27.2 L, RDW Std Deviation 57.1 H, RDW Coeff of Claudia 19.9 H, Plt Count 146 L, MPV 10.6, Immature Gran % (Auto) 0.900, Neut % (Auto) 82.5 H, Lymph % (Auto) 8.1 L, Canadian % (Auto) 8.5, Eos % (Auto) 0.0, Baso % (Auto) 0.0, Absolute Neuts (auto) 4.7, Absolute Lymphs (auto) 0.46 L, Nucleated RBC % 0.9, Differential Comment SCANNED 06/24/21 06:46: PT 19.9 H, INR 1.8 06/24/21 06:46: Sodium 139, Potassium 3.1 L, Chloride 92 L, Carbon Dioxide 42.0 H, Anion Gap 5, BUN 19 H, Creatinine 1.05 H, Estim Creat Clear Calc 43.94, Est G FR (MDRD) Af Amer 68, Est GFR (MDRD) Non-Af 56 L, BUN/Creatinine Ratio 18.1, Glucose 110 H, Calcium 8.6, Total Bilirubin 1.60 H, AST 47 H, ALT 20, Alkaline Phosphatase 72, Total Protein 7.5, Albumin 3.0 L, Globulin 4.5 H, Albumin/Globulin Ratio 0.7 L Micro: Microbiology 06/23/21 06:13 Nasal Secretion SARS-CoV-2 Antigen (Rapid) - Final SARS-CoV-2 (COVID 19) ABG Data ABG results: ABG 06/23/21 08:30 Specimen Type MATTHIEU Sample Site R Radial VBG pH 7.31 L VBG pO2 25 VBG HCO3 49 H VBG Total CO2 > 50 H VBG O2 Sat (Calc) 35 L VBG Base Excess 23 H POC Mix VBG pCO2 Pt Tmp 97.0 H* Respiration Rate 12 O2 Delivery Device BiPAP Crit Call To/Read Back Yes Blood Gas Notified [facility] Blood Gas Notified Time 08:32:51 Clinical Comments BiPap 16/12 Radiography Diagnostic Testing: Radiology Impression Echocardiogram 06/23/21 11:39 Interpretation Summary Normal LV size. The estimated ejection fraction is 50 %. D shaped septum in systole and diastole. The left atrium is moderately enlarged. Pulmonary artery systolic pressure is 58 mmHg. Ordering Physician: Nnamdi Vital Referring Physician: JUAN LEMUS Performed By: Destiney Morley, RDCS, RVT Chest CT 06/24/21 02:44 IMPRESSION: Collapse of the right lung with consolidation with fluid filling the right mainstem bronchus from proximal to distal compatible with mucous plugging and/or infection blocking the right side airways. Recommend consideration for bronchoscopy. Loculated right effusion consolidation of the right lung. Multifocal patchy densities in the left lung suspicious for pneumonia small left effusion. Cardiomegaly. Electronically Signed: Annette Linares MD at 4:03 EST Tel , Service support , ADDENDUM: 06/24/21 0439 IMPRESSION: Collapse of the right lung with consolidation with fluid filling the right mainstem bronchus from proximal to distal compatible with mucous plugging and/or infection blocking the right side airways. Recommend consideration for bronchoscopy. Loculated right effusion consolidation of the right lung. Multifocal patchy densities in the left lung suspicious for pneumonia small left effusion. Cardiomegaly. N.B. : The above Results were Read Back by Annette Linares MD to RUDDY SONG AA, and understanding confirmed on 06/24/2021 04:32:11 (ET). Electronically Signed: Annette Linares MD at 4:03 EST Tel , Service support , Physical Exam Const alert, oriented x3 and no apparent distress HEENT head/scalp atraumatic and moist oral mucous membranes Head and Scalp: normocephalic Eyes PERRL, EOMs intact bilaterally and conjunctivae normal Neck no lymphadenopathy, supple and no JVD Resp Resp Narrative: Patient is currently requiring BiPap at an FIO2 of 100 and is satting 91%. Effort and Inspection: labored Auscultation: diminished lung sounds Cardio regular rate, regular rhythm, no murmurs and no JVD Cardio Narrative: Blood pressure 88/63. GI normal to inspection, nondistended, normoactive bowel sounds, soft to palpation and non-tender Extremity normal to inspection, full ROM and no clubbing, cyanosis or edema Peripheral Pulses: Yes pulses 2+ throughout Skin no rashes or lesions noted, no wounds and skin turgor normal Neuro CN's II-XII intact bilaterally Psych affect normal Assessment & Plan Assessment/Plan (1) Pleural effusion: (2) Respiratory failure with hypoxia: QUALIFIERS: Chronicity: acute Qualified Code(s): J96.01 - Acute respiratory failure with hypoxia (3) Pneumonia due to 2019 novel coronavirus: PLAN: Day 1 Discharge planning: Discharge back to [facility] when ready. 1) acute hypoxic respiratory failure of mixed etiology Primarily due to mucus plugging of the right lung with effusion and complicated by COVID-19. Currently satting 91% on BiPAP with an FiO2 of 100. Continue BiPAP, wean as tolerated, pulmonology consult ordered. 2) acute COVID-19 pneumonia Patient tested positive on the June 22, 2021, patient will remain in quarantine until July 13, 2021. Patient has been vaccinated for COVID-19. W e will continue with Decadron and remdesivir. 3) coagulopathy INR was noted to be 9 on admission. Patient initially given 10 mg of vitamin K, as well as an additional 5 mg overnight. INR currently 1.8, will continue to monitor. 4) elevated troponin Noted on admission, associated to demand secondary to #1. We will continue to monitor. 5) hypotension Currently 88/63, hold parameters in place. DVT prophylaxis - SCDs, hold home warfarin due to #3. Patient seen by Tony Kraft PA-C, under the supervision of Dr. Vital. Time spent on patient care: 10 minutes. Documented by User: Dr. Nnamdi Vital, 06/24/21 13:27 Subjective Subjective More alert today. Still requiring 100% FIO2 on BiPAP. Objective Data Lab / Micro Data Result Diagrams: 06/24/21 06:46 06/24/21 06:46 Physical Exam Const alert Resp normal respiratory effort and no retractions Resp Narrative: diminished on right Cardio regular rate and regular rhythm Assessment & Plan Assessment/Plan (1) Pleural effusion: (2) Respiratory failure with hypoxia: QUALIFIERS: Chronicity: acute Qualified Code(s): J96.01 - Acute r espiratory failure with hypoxia (3) Pneumonia due to 2019 novel coronavirus: (4) Mucus plugging of bronchi: PLAN: Patient seen and examined independently. Data and vitals reviewed. I agree with the above note by the physician graduate research assistant. 1. Acute hypoxic respiratory failure Appear more due to mucus plugging/ATX. Though there is a pleural effusion, it is not as significant on CT. Pulm consult for assistance Positioning as able On BiPAP Wean as tolerated 2. Right-sided pleural effusion Suspect transudative Patient had a previous echocardiogram that could not assess left-ventricular ejection fraction due to tachycardia we will recheck Diurese as well BP allows Given relative small appearance of effusion, hold off on thora at this time. 3. Acute COVID-19 pneumonia Positive on the 18 Has been sick for about 2 days Previously vaccinated I feel that the COVID-19 is probably the least of her concerns at this time. I do not feel that the COVID-19 is contributing to her pleural effusion Continue with dexamethasone and remdesivir 4. Elevated troponin Likely due to strain Monitor 6. Coagulopathy Resolved with vitamin K. 7. VTE prophylaxis: SCDs in anticipation of procedure. 8. CODE STATUS: Dr. Vargas conferred with the patient daughter. Patient is DNR Comfort Care arrest no intubation. Charges/Coding Visit Charges Inpatient E&M: 43960 Subs Hosp L3
--- NOTE | 2021-06-24 13:19 | PN.HOSP_ITS ---
Subjective Subjective More alert today. Still requiring 100% FiO2 on BiPAP. Objective Data Objective Data Vital Signs: Vital Signs Temp Pulse Resp BP Pulse Ox 36.6 C 106 H 22 H 100/63 99 06/24/21 11:00 06/24/21 13:00 06/24/21 13:00 06/24/21 13:00 06/24/21 13:00 Oxygen Flow Rate (L/min) 15 Oxygen Delivery Method Bi-pap Weight: 145.6 kg Body Mass Index (BMI) 58.5 Intake & Output: Intake and Output for Last 24 Hours 06/22/21 06/23/21 06/24/21 23:59 23:59 23:59 Intake Total 380.75 / 380.75 351.0 / 351.0 Balance 380.75 / 380.75 351.0 / 351.0 Lab / Micro Data Result Diagrams: 06/24/21 06:46 06/24/21 06:46 Labs: Laboratory Results - last 24 hr 06/23/21 14:20: PT 67.4 H, INR 8.1 H* 06/23/21 16:35: PT 36.6 H, INR 3.8 06/24/21 06:46: WBC 5.7, RBC 4.46, Hgb 9.7 L, Hct 35.7 L, MCV 80.0 L, MCH 21.7 L , MCHC 27.2 L, RDW Std Deviation 57.1 H, RDW Coeff of Claudia 19.9 H, Plt Count 146 L, MPV 10.6, Immature Gran % (Auto) 0.900, Neut % (Auto) 82.5 H, Lymph % (Auto) 8.1 L, Griggs % (Auto) 8.5, Eos % (Auto) 0.0, Baso % (Auto) 0.0, Absolute Neuts (auto) 4.7, Absolute Lymphs (auto) 0.46 L, Nucleated RBC % 0.9, Differential Comment SCANNED 06/24/21 06:46: PT 19.9 H, INR 1.8 06/24/21 06:46: Sodium 139, Potassium 3.1 L, Chloride 92 L, Carbon Dioxide 42.0 H, Anion Gap 5, BUN 19 H, Creatinine 1.05 H, Estim Creat Clear Calc 43.94, Est GFR (MDRD) Af Amer 68, Est GFR (MDRD) Non-Af 56 L, BUN/Creatinine Ratio 18.1, Glucose 110 H, Calcium 8.6, Total Bilirubin 1.60 H, AST 47 H, ALT 20, Alkaline Phosphatase 72, Total Protein 7.5, Albumin 3.0 L, Globulin 4.5 H, Albumin/Globulin Ratio 0.7 L Micro: Microbiology 06/23/21 06:13 Nasal Secretion SARS-CoV-2 Antigen (Rapid) - Final SARS-CoV-2 (COVID 19) ABG Data ABG results: ABG 06/23/21 08:30 Specimen Type MATTHIEU Sample Site R Radial VBG pH 7.31 L VBG pO2 25 VBG HCO3 49 H VBG Total CO2 > 50 H VBG O2 Sat (Calc) 35 L VBG Base Excess 23 H POC Mix VBG pCO2 Pt Tmp 97.0 H* Respiration Rate 12 O2 Delivery Device BiPAP Crit Call To/Read Back Yes Blood Gas Notified Whom [facility] Blood Gas Notified Time 08:32:51 Clinical Comments BiPap 14/7 Radiography Diagnostic Testing: Radiology Impression Echocardiogram 06/23/21 11:39 Interpretation Summary Normal LV size. The estimated ejection fraction is 50 %. D shaped septum in systole and diastole. The left atrium is moderately enlarged. Pulmonary artery systolic pressure is 58 mmHg. Ordering Physician: Nnamdi Vital Referring Physician: JUAN LEMUS Performed By: Destiney Morley, RDCS, RVT Chest CT 06/24/21 02:44 IMPRESSION: Collapse of the right lung with consolidation with fluid filling the right mainstem bronchus from proximal to distal compatible with mucous plugging and/or infection blocking the right side airways. Recommend consideration for bronchoscopy. Loculated right effusion consolidation of the right lung. Multifocal patchy densities in the left lung suspicious for pneumonia small left effusion. Cardiomegaly. Electronically Signed: Annette Linares MD at 4:03 EST Tel , Service support , ADDENDUM: 06/24/21 0439 IMPRESSION: Collapse of the right lung with consolidation with fluid filling the right mainstem bronchus from proximal to distal compatible with mucous plugging and/or infection blocking the right side airways. Recommend consideration for bronchoscopy. Loculated right effusion consolidation of the right lung. Multifocal patchy densities in the left lung suspicious for pneumonia small left effusion. Cardiomegaly. N.B. : The above Results were Read Back by Annette Linares MD to RUDDY SONG AA, and understanding confirmed on 06/24/2021 04:32:11 (ET). Electronically Signed: Annette Linares MD at 4:03 EST Tel , Service support , Physical Exam Const alert Resp normal respiratory effort and no retractions Resp Narrative: diminished in right lung field. Cardio regular rate, regular rhythm, S1 normal heart sound and S2 normal heart sound GI normal to inspection, nondistended, normoactive bowel sounds and soft to palpation
--- NOTE | 2021-06-24 14:03 | CASEMGMT ---
PHIL faxed updates to Annmarie with [facility]. Sagrario Philip ANDROID ARCHITECT TELECOM COORDINATOR
--- NOTE | 2021-06-24 14:32 | CON.PCM.CC_ITS ---
Assessment & Plan Assessment/Plan (1) Respiratory failure with hypoxia: QUALIFIERS: Chronicity: acute Qualified Code(s): J96.01 - Acute respiratory failure with hypoxia (2) Pneumonia due to 2019 novel coronavirus: (3) Mucus plugging of bronchi: (4) Pleural effusion: PLAN: RECOMMENDATIONS: 1. Attempt to transition to Airvo during the day 2. Continue BiPAP with sleep 3. Obtain sputum culture 4. Continue to diurese as tolerated 5. Potentially prepare for diagnostic/therapeutic thoracentesis tomorrow IMPRESSIONS: 1. Acute on chronic hypoxic respiratory failure secondary to COVID-19/mucous plugging Patient is a very poor historian, but reportedly lives in a long term. Clinical suspicion is patient has been vaccinated as a criteria for staying in the long term. Review of the CT scan shows a pleural effusion with possible mucous plug centrally. Will obtain a sputum culture. Patient with significant improvement in FiO2 requirements on my evaluation indicating probable mobilization of mucous plug. Will attempt to transition to Airvo during the day as this will help with pulmonary toileting. Patient should continue BiPAP with sleep. Will obtain a chest x-ray tomorrow for evaluation. Patient will be continued on Decadron and Remdesivir. 2. Hypotension/CHF/history of A. fib/coagulopathy/elevated troponin Hold parameters have been placed on antihypertensives. Patient's INR is m uch improved following interventions. It does not appear the patient is tolerating diuretic therapy well. May need to proceed with a diagnostic/therapeutic thoracentesis. Clinical suspicion for elevation in troponin secondary to supply demand mismatch. Patient does have significant cor pulmonale on echocardiogram showing some RV failure. 3. Reported COPD/morbid obesity/STACEY/debility/GERD/CKD stage III Complicates care, management, recovery and prognosis. Continue with BiPAP with sleep. Patient is clear that she would not want to be intubated if necessary, even for bronchoscopy. This has been consistent throughout the medical record despite patient being a poor historian. HPI Consult Data Date of Consult: 06/24/21 HPI Narrative HPI Narrative: NICOLE DUMONT is a 60 F, with past medical history listed below, who presents to [facility] 06/23[facility]2021 secondary to progressive shortness of breath. Patient reportedly lives in a long term and was recently diagnosed with COVID-19. Patient is a very poor historian and unable to report onset of symptoms. Patient tells me that she was vaccinated, but cannot tell me what kind of vaccination and had told the ER that she was unclear if she was vaccinated. Patient reportedly is on supplemental oxygen at baseline up to 4 L/min, which she attributes to her heart. Patient reportedly uses BiPAP to help her sleep at night. In the ER, patient was is tachypneic as 24 breaths/min and noted to be 99.3 ?F. Patient did have adequate blood pressure initially, but this had fallen to 93/63 after initiation of BiPAP at 100% to maintain saturations. Laboratory work-up showed a white blood cell count of 4.8, hemoglobin of 10.6 and platelets of 155. Patient did have an elevated bicarbonate of 42, creatinine of 1.1 and a BNP of 553. INR was noted to be 9 and lactate was 2.1. EKG showed A. fib with RVR. Patient was admitted to the floor for further evaluation. After being on the floor, patient has had to remain on BiPAP therapy. A CT of the chest was obtained overnight showing significant right pleural effusion with a possible mucous plug. A pulmonary consult was obtained to see if bronchoscopy would be an option. On my evaluation, patient was on BiPAP 14/7 cmH2O on 100% FiO2. Patient was saturating 100%. Was able to wean her FiO2 to 70% with no significant change in saturations. Patient is a bad historian, but does report that she has a history of kidney problems, heart problems, but I do not know of any lung problems. Patient does use BiPAP routinely with sleep, but she is unaware of her settings. Patient was clear that she did not want to be intubated under any circumstance, even to have a procedure. Discussed with the nurse. Patient had been rolled onto her left side and received PD&C with production of of significant plug. Patient subjectively thought this was helpful. Unable to obtain reliable full review of systems secondary to patient's mental status. [facility] Medical History Acute and chronic respiratory failure Afib Age-related physical debility CHF (congestive heart failure) CKD (chronic kidney disease) stage 3, GFR 30-59 ml/min COPD (chronic obstructive pulmonary disease) GERD (gastroesophageal reflux disease) HTN (hypertension) Iron deficiency anemia STACEY treated with BiPAP Physical debility Home Medications albuterol sulfate 2.5 mg Q6H PRN PRN 06/23/21 [History Last Taken Unknown] bisacodyl 10 mg MI DAILY PRN 06/23/21 [History Last Taken Unknown] dexamethasone 6 mg PO DAILY 06/23/21 [History Last Taken Unknown] diltiazem HCl 60 mg PO Q12H 06/23/21 [History Last Taken Unknown] ferrous sulfate 325 mg PO DAILY 06/23/21 [History Last Taken Unknown] fluticasone propionate [Flonase] 2 spray INTRANASAL DAILY 06/23/21 [History Last Taken Unknown] fluvoxamine 50 mg PO QHS 06/23/21 [History Last Taken Unknown] furosemide [Lasix] 80 mg PO BID 06/23/21 [History Last Taken Unknown] metoprolol tartrate [Lopressor] 25 mg PO BID 06/23/21 [History Last Taken Unknown] omeprazole 40 mg PO DAILY 06/23/21 [History Last Taken Unknown] warfarin [Coumadin] 1 mg PO LUNCH 06/23/21 [History Last Taken Unknown] Allergy/AdvReac Type Severity Reaction Status Date / Time enoxaparin [From Lovenox] Allergy PT UNSURE Verified 06/23/21 06:12 OF REACTION green tea Allergy PT UNSURE Verified 06/23/21 06:12 OF REACTION peach Allergy PT UNSURE Verified 06/23/21 06:12 OF REACTION Family History unable to obtain Surgical History unable to obtain Social History (Updated 06/23/21 @ 12:33 by Vivian Alexandre) housing: long term Smoking Status: Unknown if ever smoked ROS Review of Systems ROS Unobtainable: due to mental status and other Details: BiPAP Physical Exam Const alert, oriented x3 and no apparent distress Constitutional Narrative: Patient conversational on BiPAP, but lying completely flat on the left lateral decubitus position Nutritional Appearance: morbidly obese HEENT head/scalp atraumatic and moist oral mucous membranes Head and Scalp: normocephalic Eyes PERRL, EOMs intact bilaterally and conjunctivae normal Neck no lymphadenopathy, supple and no JVD Resp Effort and Inspection: Negative for labored Auscultation: diminished lung sounds; Negative for rales, rhonchi or wheezes Cardio no murmurs, no gallops, no clicks and no JVD Rate: tachycardic Rhythm: abnormal rhythm irregularly irregular GI normal to inspection, nondistended, normoactive bowel sounds, soft to palpation and non-tender Extremity normal to inspection and full ROM General Extremity: edema; Negative for clubbing or cyanosis Peripheral Pulses: Yes pulses 2+ throughout Skin no rashes or lesions noted, no wounds and skin turgor normal Neuro CN's II-XII intact bilaterally Psych affect normal Lab / Micro Data Result Diagrams: 06/24/21 06:46 06/24/21 06:46 Labs: Laboratory Results - last 24 hr 06/23/21 14:20: PT 67.4 H, INR 8.1 H* 06/23/21 16:35: PT 36.6 H, INR 3.8 06/24/21 06:46: WBC 5.7, RBC 4.46, Hgb 9.7 L, Hct 35.7 L, MCV 80.0 L, MCH 21.7 L , MCHC 27.2 L, RDW Std Deviation 57.1 H, RDW Coeff of Claudia 19.9 H, Plt Count 146 L, MPV 10.6, Immature Gran % (Auto) 0.900, Neut % (Auto) 82.5 H, Lymph % (Auto) 8.1 L, Hodgeman % (Auto) 8.5, Eos % (Auto) 0.0, Baso % (Auto) 0.0, Absolute Neuts (auto) 4.7, Absolute Lymphs (auto) 0.46 L, Nucleated RBC % 0.9, Differential Comment SCANNED 06/24/21 06:46: PT 19.9 H, INR 1.8 06/24/21 06:46: Sodium 139, Potassium 3.1 L, Chloride 92 L, Carbon Dioxide 42.0 H, Anion Gap 5, BUN 19 H, Creatinine 1.05 H, Estim Creat Clear Calc 43.94, Est GFR (MDRD) Af Amer 68, Est GFR (MDRD) Non-Af 56 L, BUN/Creatinine Ratio 18.1, Glucose 110 H, Calcium 8.6, Total Bilirubin 1.60 H, AST 47 H, ALT 20, Alkaline Phosphatase 72, Total Protein 7.5, Albumin 3.0 L, Globulin 4.5 H, Albumin/Globul in Ratio 0.7 L ABG Data ABG results: ABG 06/23/21 08:30 Specimen Type MATTHIEU Sample Site R Radial VBG pH 7.31 L VBG pO2 25 VBG HCO3 49 H VBG Total CO2 > 50 H VBG O2 Sat (Calc) 35 L VBG Base Excess 23 H POC Mix VBG pCO2 Pt Tmp 97.0 H* Respiration Rate 12 O2 Delivery Device BiPAP Crit Call To/Read Back Yes Blood Gas Notified Whom [facility] Blood Gas Notified Time 08:32:51 Clinical Comments BiPap 16/12 Radiology Impression Echocardiogram 06/23/21 11:39 Interpretation Summary Normal LV size. The estimated ejection fraction is 50 %. D shaped septum in systole and diastole. The left atrium is moderately enlarged. Pulmonary artery systolic pressure is 58 mmHg. Ordering Physician: Nnamdi Vital Referring Physician: JUAN LEMUS Performed By: Destiney Morley, HERSONCS, RVT Chest CT 06/24/21 02:44 IMPRESSION: Collapse of the right lung with consolidation with fluid filling the right mainstem bronchus from proximal to distal compatible with mucous plugging and/or infection blocking the right side airways. Recommend consideration for bronchoscopy. Loculated right effusion consolidation of the right lung. Multifocal patchy densities in the left lung suspicious for pneumonia small left effusion. Cardiomegaly. Electronically Signed: Annette Linares MD at 4:03 EST Tel , Service support , ADDENDUM: 06/24/21 9402 IMPRESSION: Collapse of the right lung with consolidation with fluid filling the right mainstem bronchus from proximal to distal compatible with mucous plugging and/or infection blocking the right side airways. Recommend consideration for bronchoscopy. Loculated right effusion consolidation of the right lung. Multifocal patchy densities in the left lung suspicious for pneumonia small left effusion. Cardiomegaly. N.B. : The above Results were Read Back by Annette Linares MD to RUDDY SONG AA, and understanding confirmed on 06/24/2021 04:32:11 (ET). Electronically Signed: Annette Linares MD at 4:03 EST Tel , Service support , Charges/Coding Visit Charges Inpatient E&M: 94317 Init Hosp L3
[2021-06-24] MEDS: Menthol/Lanolin/Calamine/Znox 113 GM Tube 1 APPLIC TOPICAL ×2 (15:34→22:28)
[2021-06-24] MEDS: Metoprolol Tartrate 25 MG Tablet PO (15:34)
[2021-06-25] VITALS (17 sets, daily range): BP systolic 88–109; BP diastolic 51–81; PULSE 95–120; RESP 12–24; TEMP 36.4–36.9; O2SAT 80–97
[2021-06-25 05:23] LABS: Absolute Lymphocyte Count 0.47 X10^3/uL (0.83-4.51); Absolute Neutrophil Count 5.6 X10^3/uL (2.0-7.7); Basophil# 0.01 X10^3/uL; Basophil% 0.2 % (0-1); Hematocrit 37.8 % (37-47); Hemoglobin 10.2 g/dL (12.0-15.0); Lymphocyte # 0.47 X10^3/ul (0.83-4.51); Lymphocyte % 7.1 % (19-41); Mean Corpuscular Hgb 21.7 pg (27.0-32.0); Mean Corpuscular Volume 80.4 fL (81-99); Mean Platelet Vol. 10.1 fl (6.2-12.0); Monocyte% 7.5 % (0-10); NRBC Flagged by Analyzer 0.9 % (0-5); Neutrophil % 84.4 % (47-70); POSITIVE DIFFERENTIAL YES; Platelet Count 169 K/mm3 (150-450); RBC Distribution Width SD 57.7 fl (35.1-43.9); White Blood Count 6.6 K/mm3 (4.4-11.0)
[2021-06-25] MEDS: Menthol/Lanolin/Calamine/Znox 113 GM Tube 1 APPLIC TOPICAL ×2 (05:24→14:49)
[2021-06-25 05:30] LABS: Differential Indicated SCAN CRITERIA MET
[2021-06-25 05:34] LABS: International Normalized Ratio 1.7; Prothrombin Time (Protime)PT. 18.9 SECONDS (11.7-14.9)
[2021-06-25 05:37] LABS: Anion Gap 2 (5-15); BUN 22 mg/dL (7-18); BUN/Creat Ratio 19.8 RATIO (10-20); Calcium,Total 8.8 mg/dL (8.5-10.1); Chloride 92 mmol/L (98-107); Creatinine, Serum 1.11 mg/dL (0.55-1.02); EST Glomerular Filtration Rate 53 mL/min (>60); Est Glom Filt Rate - Afr Amer 64 mL/min (>60); Estimated Creatinine Clearance 41.56 ml/min; Glucose 121 mg/dL (74-106); Potassium 3.4 mmol/L (3.5-5.1); Sodium Level 139 mmol/L (136-145)
[2021-06-25 05:51] LABS: Differential Comment SCANNED
--- NOTE | 2021-06-25 06:33 | CPS ---
There was an attempt to place on airvo earlier on 60L and 93% even with a non rebreather on top. spo2 was 78% Pt ate a few bite of applesauce and drank sips of water to wet mouth. RN notified. This was at approximately 8:45pm 06/24/21
--- NOTE | 2021-06-25 07:43 | US_ITS ---
STUDY: SUPERFICIAL ULTRASOUND - BILATERAL PLEURAL SPACES. REASON FOR EXAM: Female, 60 years old. Right pleural effusion TECHNIQUE: A superficial ultrasound was performed with real-time and static almanzar-scale imaging. COMPARISON: None. FINDINGS: Imaging of both pleural spaces were obtained. Small amount of bilateral pleural effusions slightly greater on the left side. Not enough fluid for safe thoracentesis. US/Chest IMPRESSION: Not enough fluid for a safe thoracentesis. Electronically Signed: Merritt Toledo MD at 15:27 EST , Service support ,
[2021-06-25 08:09] LABS: LDH 274 U/L (84-246)
[2021-06-25] MEDS: Nystatin Powder 15gm Bottle 1 APPLIC TOPICAL (09:22)
[2021-06-25] MEDS: Potassium Chloride 10mEq/100mL 10 MEQ/100 ML IV.SOLN. 100 MEQ IV BOLUS (09:22)
[2021-06-25] MEDS: dexAMETHasone 10 MG/ML Vial 6 MG IV (09:22)
--- NOTE | 2021-06-25 09:37 | PN.CC_ITS ---
Assessment & Plan Assessment/Plan (1) Respiratory failure with hypoxia: QUALIFIERS: Chronicity: acute Qualified Code(s): J96.01 - Acute respiratory failure with hypoxia (2) Pneumonia due to 2019 novel coronavirus: (3) Mucus plugging of bronchi: (4) Pleural effusion: PLAN: RECOMMENDATIONS: 1. Attempt to transition to Airvo during the day 2. Continue BiPAP with sleep 3. Encourage aggressive pulmonary toileting 4. Continue to diurese as tolerated 5. Await diagnostic/therapeutic thoracentesis IMPRESSIONS: 1. Acute on chronic hypoxic respiratory failure secondary to COVID-19/mucous plugging Patient is a very poor historian, but reportedly lives in a senior living. Clinical suspicion is patient has been vaccinated as a criteria for staying in the senior living. Review of the CT scan shows a pleural effusion with possible mucous plug centrally. Will await sputum culture. Patient with significant improvement in FiO2 requirements on my evaluation indicating probable mobilization of mucous plug. Will attempt to transition to Airvo during the day as this will help with pulmonary toileting. Patient should continue BiPAP with sleep. Patient will be continued on Decadron and Remdesivir. Recurrence of mucous plugging is high given active viral infection with poor patient participation. Manual percussor and body position will be used. Patient continues to report that she is not willing to be intubated when I discuss the intervention 2. Hypotension/CHF/history of A. fib/coagulopathy/elevated troponin Hold parameters have been placed on antihypertensives. Patient's INR is much improved following interventions. It does not appear the patient is tolerating diuretic therapy well. May need to proceed with a diagnostic/therapeutic thoracentesis. Clinical suspicion for elevation in t roponin secondary to supply demand mismatch. Patient does have significant cor pulmonale on echocardiogram showing some RV failure. 3. Reported COPD/morbid obesity/STACEY/debility/GERD/CKD stage III Complicates care, management, recovery and prognosis. Continue with BiPAP with sleep. Patient is clear that she would not want to be intubated if necessary, even for bronchoscopy. This has been consistent throughout the medical record despite patient being a poor historian. Subjective Subjective Patient once again was on 100% FiO2 by BiPAP overnight secondary to hypoxia. Patient continues to be minimally involved with any activity for pulmonary toileting. This morning, patient was positioned with a percussor and significant improvement and is currently on 80% through the BiPAP. Patient did state that she would not be willing to be intubated. Discussed with the patient's nurse and the daughter had suggested of possible hospice measures given her continued decline and recurrent mucous plugging. Objective Data Objective Data Vital Signs: Vital Signs Temp Pulse Resp BP Pulse Ox 36.9 C 100 17 94/51 L 91 06/25/21 08:00 06/25/21 08:08 06/25/21 08:08 06/25/21 08:00 06/25/21 08:08 Oxygen Flow Rate (L/min) 15 Oxygen Delivery Method Bi-pap Weight: 145.7 kg Body Mass Index (BMI) 58.5 Intake & Output: Intake and Output for Last 24 Hours 06/23/21 06/24/21 06/25/21 23:59 23:59 23:59 Intake Total 380.75 / 380.75 591.0 / 591.0 Balance 380.75 / 380.75 591.0 / 591.0 Lab / Micro Data Result Diagrams: 06/25/21 05:16 06/25/21 05:16 Labs: Laboratory Results - last 24 hr 06/25/21 05:16: WBC 6.6, RBC 4.70, Hgb 10.2 L, Hct 37.8, MCV 80.4 L, MCH 21.7 L, MCHC 27.0 L, RDW Std Deviation 57.7 H, RDW Coeff of Claudia 20.0 H, Plt Count 169, MPV 10.1, Immature Gran % (Auto) 0.800, Neut % (Auto) 84.4 H, Lymph % (Auto) 7.1 L, Cherry % (Auto) 7.5, Eos % (Auto) 0.0, Baso % (Auto) 0.2, Absolute Neuts (auto) 5.6, Absolute Lymphs (auto) 0.47 L, Nucleated RBC % 0.9, Differential Comment SCANNED 06/25/21 05:16: PT 18.9 H, INR 1.7 06/25/21 05:16: Sodium 139, Potassium 3.4 L, Chloride 92 L, Carbon Dioxide 45.0 H, Anion Gap 2 L, BUN 22 H, Creatinine 1.11 H, Estim Creat Clear Calc 41.56, Est GFR (MDRD) Af Amer 64, Est GFR (MDRD) Non-Af 53 L, BUN/Creatinine Ratio 19.8, Glucose 121 H, Calcium 8.8 06/25/21 05:16: Lactate Dehydrogenase 274 H Micro: Microbiology 06/23/21 06:13 Nasal Secretion SARS-CoV-2 Antigen (Rapid) - Final SARS-CoV-2 (COVID 19) ABG Data ABG results: ABG 06/23/21 08:30 VBG Total CO2 > 50 H Physical Exam Const no apparent distress Constitutional Narrative: Patient on BiPAP resting comfortably Nutritional Appearance: morbidly obese HEENT head/scalp atraumatic and moist oral mucous membranes Head and Scalp: normocephalic Eyes PERRL, EOMs intact bilaterally and conjunctivae normal Neck no lymphadenopathy, supple and no JVD Resp Resp Narrative: Attempts at percussion limited given body habitus Effort and Inspection: Negative for labored Auscultation: diminished lung sounds; Negative for rales, rhonchi or wheezes Cardio no murmurs, no gallops, no clicks and no JVD Rate: tachycardic Rhythm: abnormal rhythm irregularly irregular GI normal to inspection, nondistended, normoactive bowel sounds, soft to palpation and non-tender Extremity normal to inspection and full ROM General Extremity: edema; Negative for clubbing or cyanosis Peripheral Pulses: Yes pulses 2+ throughout Skin no rashes or lesions noted, no wounds and skin turgor normal Neuro CN's II-XII intact bilaterally Psych affect normal Charges/Coding Visit Charges Inpatient E&M: 60036 Subs Hosp L3
[2021-06-25] MEDS: Potassium Chloride Oral Tablet 20 MEQ 40 MEQ PO (09:58)
--- NOTE | 2021-06-25 10:44 | CASEMGMT ---
Hospice consult in the computer for patient. SW called [facility] regarding referral as well as faxed information. Sagrario ESPINOZA
--- NOTE | 2021-06-25 11:45 | NURSING ---
ULTRASOUND TO BEDSIDE FOR SCAN OF PLEURAL AREA. ASSIST X3 NEEDED. PT UNABLE TO TOLERATE POSITIONING WELL. IMAGING SUBMITTED FOR RADIOLOGIST READ. TELEPHONE REPORT TO ARAMIS DAVILA, OF THESE EVENTS. DALIA CURRENTLY ON HOLD.
--- NOTE | 2021-06-25 11:58 | PCM.PN.HOSP ---
Documented by User: Tony AVILEZ 06/25/21 12:08 Subjective Subjective Patient is a 60-year-old female lying in bed, alert and oriented x3. Patient was difficult to understand over her BiPAP machine but denied development of any new symptoms overnight. Did not appear in acute distress on examination, but did not appear to be uncomfortable on with BiPAP machine. Objective Data Objective Data Vital Signs: Vital Signs Temp Pulse Resp BP Pulse Ox 98.2 F 110 H 23 H 109/77 94 06/25/21 10:35 06/25/21 11:50 06/25/21 10:47 06/25/21 10:35 06/25/21 10:47 Oxygen Flow Rate (L/min) 15 Oxygen Delivery Method Bi-pap Weight: 321 lb 3.416 oz Body Mass Index (BMI) 58.5 Intake & Output: Intake and Output for Last 24 Hours 06/23/21 06/24/21 06/25/21 23:59 23:59 23:59 Intake Total 380.75 / 380.75 591.0 / 591.0 340 / 340 Balance 380.75 / 380.75 591.0 / 591.0 340 / 340 Lab / Micro Data Result Diagrams: 06/25/21 05:16 06/25/21 05:16 Labs: Laboratory Results - last 24 hr 06/25/21 05:16: WBC 6.6, RBC 4.70, Hgb 10.2 L, Hct 37.8, MCV 80.4 L, MCH 21.7 L, MCHC 27.0 L, RDW Std Deviation 57.7 H, RDW Coeff of Claudia 20.0 H, Plt Count 169, MPV 10.1, Immature Gran % (Auto) 0.800, Neut % (Auto) 84.4 H, Lymph % (Auto) 7.1 L, [place] % (Auto) 7.5, Eos % (Auto) 0.0, Baso % (Auto) 0.2, Absolute Neuts (auto) 5.6, Absolute Lymphs (auto) 0.47 L, Nucleated RBC % 0.9, Differential Comment SCANNED 06/25/21 05:16: PT 18.9 H, INR 1.7 06/25/21 05:16: Sodium 139, Potassium 3.4 L, Chloride 92 L, Carbon Dioxide 45.0 H, Anion Gap 2 L, BUN 22 H, Creatinine 1.11 H, Estim Creat Clear Calc 41.56, Est GFR (MDRD) Af Amer 64, Est GFR (MDRD) Non-Af 53 L, BUN/Creatinine Ratio 19.8, Glucose 121 H, Calcium 8.8 06/25/21 05:16: Lactate Dehydrogenase 274 H Micro: Microbiology 06/24/21 16:50 Sputum, Expectorated/Coughed Gram Stain - Final 06/24/21 16:50 Sputum, Expectorated/Coughed Respiratory Culture - Preliminary Staphylococcus species 06/23/21 06:13 Nasal Secretion SARS-CoV-2 Antigen (Rapid) - Final SARS-CoV-2 (COVID 19) Physical Exam Const alert, oriented x3 and no apparent distress HEENT head/scalp atraumatic and moist oral mucous membranes Head and Scalp: normocephalic Eyes PERRL, EOMs intact bilaterally and conjunctivae normal Neck no lymphadenopathy, supple and no JVD Resp Resp Narrative: On BiPAP with an FIO2 of 80 currently satting 94%. Effort and Inspection: tachypneic and labored Auscultation: diminished lung sounds Cardio regular rate, regular rhythm and no JVD GI normal to inspection, nondistended, normoactive bowel sounds, soft to palpation and non-tender Extremity normal to inspection, full ROM and no clubbing, cyanosis or edema Skin no rashes or lesions noted, no wounds and skin turgor normal Neuro CN's II-XII intact bilaterally Psych affect normal Assessment & Plan Assessment/Plan (1) Mucus plugging of bronchi: (2) Pleural effusion: (3) Respiratory failure with hypoxia: QUALIFIERS: Chronicity: acute Qualified Code(s): J96.01 - Acute respiratory failure with hypoxia (4) Pneumonia due to 2019 novel coronavirus: PLAN: Day 2 Discharge planning: Discharge back to [facility] when ready. 1) acute hypoxic respiratory failure of mixed etiology Primarily due to mucus plugging of the right lung with effusion and complicated by COVID-19. Currently satting 94% on BiPAP with an FiO2 of 80. Pulmonary consult ordered, reccomendations as follows: AirVO during day, BiPAP at night, continue with diuresis, proceed with diagnostic/therapeutic US guided thoracentesis. 2) acute COVID-19 pneumonia Patient tested positive on the June 22, 2021, patient will remain in quarantine until July 13, 2021. Patient has been vaccinated for COVID-19. We will continue with Decadron and remdesivir. 3) coagulopathy INR was noted to be 9 on admission. Patient initially given 10 mg of vitamin K, as well as an additional 5 mg overnight. INR currently 1.7, will continue to monitor. We will continue to hold Coumadin for thoracentesis. 4) elevated troponin Noted on admission, associated to demand secondary to #1. We will continue to monitor. 5) hypotension Currently 89/6, stable from yesterday, hold parameters in place. DVT prophylaxis - SCDs, hold home warfarin due to #3. Patient seen by Tony Kraft PA-C, under the supervision of Dr. Vital. Time spent on patient care: 9 minutes. Documented by User: Dr. Nnamdi Vital, 06/25/21 13:42 Objective Data Lab / Micro Data Result Diagrams: 06/25/21 05:16 06/25/21 05:16 Physical Exam Narrative indicating she is having pain at her left wrist IV where she is receiving potassium. On BiPAP. Resp normal respiratory effort, no retractions, no use of accessory muscles and clear to auscultation bilaterally Cardio regular rate, regular rhythm, S1 normal heart sound and S2 normal heart sound GI normal to inspection, nondistended, normoactive bowel sounds, soft to palpation, non-tender and non-distended Assessment & Plan Assessment/Plan (1) Mucus plugging of bronchi: (2) Pleural effusion: (3) Respiratory failure with hypoxia: QUALIFIERS: Chronicity: acute Qualified Code(s): J96.01 - Acute respiratory failure with hypoxia PLAN: Patient seen and examined independently. Data and vitals reviewed. I agree with the above note by the physician technical staff assistant. 1. Acute hypoxic respiratory failure Appear more due to mucus plugging/ATX. Though there is a pleural effusion, it is not as significant on CT. Pulm consult for assistance Positioning as able On BiPAP Wean as tolerated 2. Right-sided pleural effusion Suspect transudative Diurese as well BP allows Minimal fluid noted not amenable to thoracentesis at this time. 3. Acute COVID-19 pneumonia Positive on the 18th Has been sick for about 2 days Previously vaccinated I feel that the COVID-19 is probably the least of her concerns at this time. I do not feel that the COVID-19 is contributing to her pleural effusion Continue with dexamethasone and remdesivir 4. Elevated troponin Likely due to strain Monitor 6. Coagulopathy Resolved with vitamin K. 7. VTE prophylaxis: SCDs in anticipation of procedure. 8. CODE STATUS: Dr. Vargas conferred with the patient daughter. Patient is DNR Comfort Care arrest no intubation. Daughter asked about hospice. We will have hospice come talk and speak with them about goals of care. Charges/Coding Visit Charges Inpatient E&M: 51588 Subs Hosp L2
--- NOTE | 2021-06-25 14:38 | CASEMGMT ---
SW received a call from Gladis at Hospice. They will be meeting with patient's daughter today at 2p. PHIL updated RN and discharge specialist. Sagrario Philip ACQUISITION ANALYST OLGA
--- NOTE | 2021-06-25 15:59 | DCINST_ITS ---
Discharge Instructions Diet Discharge Diet: No restrictions Activity Discharge Activity: Return to Normal Activity Weight Bearing Status: Weight bearing as tolerated Dressing / Incision Call your doctor if you observe: Fever of 101 or Higher, Numbness or Tingling, Shortness of breath, Dizziness, Chest pain, Increased palpitations (irregular heartbeat) and Calf discomfort Follow Up Care Please Follow Up With: Primary care provider When: Within the next two weeks. Test Results: Test results from this visit will be discussed in further detail at your follow-up appointment, if applicable. Discharge Plan Admission Admit Date/Time: 06/23/21 08:55 Primary Reason for Your Visit: Shortness of breath Attending Provider: Nnamdi Vital Primary Care Provider: Joe Torres Consulting Providers: Faustino Wahl ; Anju Paul ; Balbir Villalba ; Aleyda Sewell ; Kemi West ; Mikayla Glynn ; Kamilah Zhang CENTRALIZED TRAFFIC CONTROL OPERATOR Discharge Orders/Prescriptions Prescriptions: Continued dexamethasone 6 mg Tablet 6 mg PO DAILY RF: 0 furosemide [Lasix] 80 mg Tablet 80 mg PO BID RF: 0 bisacodyl 10 mg Suppository 10 mg AK DAILY PRN (Reason: Constipation) RF: 0 ferrous sulfate 325 mg (65 mg iron) Tablet 325 mg PO DAILY RF: 0 metoprolol tartrate [Lopressor] 50 mg Tablet 25 mg PO BID RF: 0 fluvoxamine 50 mg Tablet 50 mg PO QHS RF: 0 diltiazem HCl 60 mg Capsule,Extended Release 12 Hr 60 mg PO Q12H RF: 0 fluticasone propionate 50 mcg/actuation [place],Suspension 2 spray INTRANASAL DAILY RF: 0 albuterol sulfate 2.5 mg/0.5 mL Solution For Nebulization 2.5 mg Q6H PRN PRN (Reason: Shortness Of Breath) RF: 0 omeprazole 40 mg Capsule,Delayed Release(Dr/Ec) 40 mg PO DAILY RF: 0 warfarin 1 mg Tablet 1 mg PO LUNCH RF: 0 Referrals / Follow Up: Joe Torres MD [Primary Care Provider] - Within 2 Weeks Disposition Disposition (needs filled in before D/C Order can be placed): Hospice in Medical Facility
--- NOTE | 2021-06-25 16:14 | CASEMGMT ---
Luciano from Hospice spoke with patient's daughter and she agrees with Hospice. Luciano is here at [facility] to talk with patient as she is alert and oriented. Luciano said patient signed Hospice papers and would like to go to the inpatient unit. Luciano was not sure if that would be today or tomorrow. She will have someone call PCU with this answer. Green sheet will be on her chart with instructions. Plan: d/c to Inpatient Hospice Unit. Sagrario ESPINOZA
--- NOTE | 2021-06-25 16:31 | CASEMGMT ---
PHIL called Gladis at Hospice and they can accept patient today. PHIL notified physician and RN. PHIL faxed d/c information and DNR to Hospice. [place] will arrange transportation. Plan: d/c to Hospice inpatient unit. Sagrario ESPINOZA
--- NOTE | 2021-06-25 17:21 | PCM.DC.SUM ---
Providers Date of Admission: 06/23/21 Primary Care Physician: Dr. Joe Torres MD Consultations 06/24/21 04:06 Consult: Dental Floss Packer / Pulmonary Medicine Routine Consulting Provider: Faustino Wahl Reason for Consult: Possible mucus plug; loculated pleural effusion EMERGENT Consult: No Notified: Yes Date Notified: 06/24/21 Time Notified: 06:10 Method of Notification: Text 06/25/21 09:53 Consult: Hospice / Palliative Care Routine Consulting Provider: [facility] Reason for Consult: Hospice EMERGENT Consult: No Notified: Yes Date Notified: 06/25/21 Time Notified: 09:53 Method of Notification: faxed Reason For Visit: COVID PNEUMONIA Diagnosis Discharge Diagnosis (1) Mucus plugging of bronchi: Status: Acute Code(s): T17.500A - Unspecified foreign body in bronchus causing asphyxiation, initial encounter (2) Pleural effusion: Status: Acute Code(s): J90 - Pleural effusion, not elsewhere classified (3) Respiratory failure with hypoxia: Status: Acute Code(s): J96.91 - Respiratory failure, unspecified with hypoxia Qualifiers: Chronicity: acute Qualified Code(s): J96.01 - Acute respiratory failure with hypoxia Medications at Discharge Home Medications albuterol sulfate 2.5 mg Q6H PRN PRN 06/23/21 bisacodyl 10 mg GA DAILY PRN 06/23/21 dexamethasone 6 mg PO DAILY 06/23/21 diltiazem HCl 60 mg PO Q12H 06/23/21 ferrous sulfate 325 mg PO DAILY 06/23/21 fluticasone propionate 2 spray INTRANASAL DAILY 06/23/21 fluvoxamine 50 mg PO QHS 06/23/21 furosemide [Lasix] 80 mg PO BID 06/23/21 metoprolol tartrate [Lopressor] 25 mg PO BID 06/23/21 omeprazole 40 mg PO DAILY 06/23/21 warfarin 1 mg PO LUNCH 06/23/21 Hospital Course Summary of Care Provided Minutes Spent on Discharge: 15 Hospital Course: Patient is a 60-year-old female who was admitted to [facility] on 06/23/2021 for evaluation and management of respiratory failure with hypoxia due to right-sided pleural effusion, right-sided mucous plug and acute COVID-19 pneumonia. Patient was placed on BiPAP for supplemental oxygen and was placed on Decadron and remdesivir for COVID-19. Pulmonary consult was obtained and the patient was supposed to go for thoracentesis to relieve right-sided pleural effusion today, however after discussion with family it was decided that patient will be better served in a inpatient hospice unit. Procedure was canceled and patient to be discharged to inpatient hospice unit today. No medication changes were made on discharge. Patient seen by Tony Kraft PA-C, under the supervision of Dr. Vital. Time spent on patient care: 15 minutes. Physical Exam Narrative Patient is a 60-year-old female lying in bed, alert and oriented x3. Patient was difficult to understand over her BiPAP machine but denied development of any new symptoms overnight. Did not appear in acute distress on examination, but did appear to be uncomfortable on BiPAP machine. Const alert, oriented x3 and no apparent distress HEENT normocephalic, head/scalp atraumatic and hearing grossly normal bilaterally Eyes PERRL, EOMs intact bilaterally and conjunctivae normal Neck no lymphadenopathy, supple and no JVD Resp Resp Narrative: On BiPAP with an FiO2 of 80 currently satting 94%. Effort and Inspection: tachypneic and labored Auscultation: diminished lung sounds Cardio regular rate, regular rhythm and no JVD GI normal to inspection, nondistended, normoactive bowel sounds, soft to palpation and non-tender Extremity normal to inspection, full ROM and no clubbing, cyanosis or edema Skin no rashes or lesions noted, no wounds and skin turgor normal Neuro CN's II-XII intact bilaterally Psych affect normal Weight / BMI Weight Weight: 321 lb 3.416 oz Body Mass Index (BMI) 58.5 ABG / Lab / Microbiology Data Result Diagrams: 06/25/21 05:16 06/25/21 05:16 Laboratory: Laboratory Results - last 24 hr 06/25/21 05:16: WBC 6.6, RBC 4.70, Hgb 10.2 L, Hct 37.8, MCV 80.4 L, MCH 21.7 L, MCHC 27.0 L, RDW Std Deviation 57.7 H, RDW Coeff of Claudia 20.0 H, Plt Count 169, MPV 10.1, Immature Gran % (Auto) 0.800, Neut % (Auto) 84.4 H, Lymph % (Auto) 7.1 L, [place] % (Auto) 7.5, Eos % (Auto) 0.0, Baso % (Auto) 0.2, Absolute Neuts (auto) 5.6, Absolute Lymphs (auto) 0.47 L, Nucleated RBC % 0.9, Differential Comment SCANNED 06/25/21 05:16: PT 18.9 H, INR 1.7 06/25/21 05:16: Sodium 139, Potassium 3.4 L, Chloride 92 L, Carbon Dioxide 45.0 H, Anion Gap 2 L, BUN 22 H, Creatinine 1.11 H, Estim Creat Clear Calc 41.56, Est GFR (MDRD) Af Amer 64, Est GFR (MDRD) Non-Af 53 L, BUN/Creatinine Ratio 19.8, Glucose 121 H, Calcium 8.8 06/25/21 05:16: Lactate Dehydrogenase 274 H Microbiology: Microbiology 06/23/21 06:08 Blood Culture (Wb) #2 - Left Hand Blood Culture - Preliminary No growth in 48 hours. 06/23/21 06:00 Blood Culture (Wb) - Left Wrist Blood Culture - Preliminary No growth in 48 hours. 06/24/21 16:50 Sputum, Expectorated/Coughed Gram Stain - Final 06/24/21 16:50 Sputum, Expectorated/Coughed Respiratory Culture - Preliminary Staphylococcus species 06/23/21 06:13 Nasal Secretion SARS-CoV-2 Antigen (Rapid) - Final SARS-CoV-2 (COVID 19) Radiography Diagnostic Testing: Radiology Impression Chest Ultrasound 06/25/21 07:43 IMPRESSION: Not enough fluid for a safe thoracentesis. Electronically Signed: Merritt Toledo MD at 15:27 EST , Service support , D/C Instructions Discharge Diet: No restrictions Weight Bearing Status: Weight bearing as tolerated Call your doctor if you observe: Fever of 101 or Higher, Numbness or Tingling, Shortness of breath, Dizziness, Chest pain, Increased palpitations (irregular heartbeat) and Calf discomfort Please Follow Up With: Primary care provider When: Within the next two weeks. Meaningful Use Info Meaningful Use Diagnoses (Choose all that apply): None applicable Discharge Plan Admission Admit Date/Time: 06/23/21 08:55 Primary Reason for Your Visit: Shortness of breath Attending Provider: Nnamdi Vital Primary Care Provider: Joe Torres Consulting Providers: Faustino Wahl ; Anju Paul ; Balbir Villalba ; Aleyda Sewell ; Kemi West ; Mikayla Glynn ; Kamilah Zhang DIGITAL PUBLISHING SPECIALIST Discharge Orders/Prescriptions Prescriptions: Continued dexamethasone 6 mg Tablet 6 mg PO DAILY RF: 0 furosemide [Lasix] 80 mg Tablet 80 mg PO BID RF: 0 bisacodyl 10 mg Suppository 10 mg GA DAILY PRN (Reason: Constipation) RF: 0 ferrous sulfate 325 mg (65 mg iron) Tablet 325 mg PO DAILY RF: 0 metoprolol tartrate [Lopressor] 50 mg Tablet 25 mg PO BID RF: 0 fluvoxamine 50 mg Tablet 50 mg PO QHS RF: 0 diltiazem HCl 60 mg Capsule,Extended Release 12 Hr 60 mg PO Q12H RF: 0 fluticasone propionate 50 mcg/actuation [place],Suspension 2 spray INTRANASAL DAILY RF: 0 albuterol sulfate 2.5 mg/0.5 mL Solution For Nebulization 2.5 mg Q6H PRN PRN (Reason: Shortness Of Breath) RF: 0 omeprazole 40 mg Capsule,Delayed Release(Dr/Ec) 40 mg PO DAILY RF: 0 warfarin 1 mg Tablet 1 mg PO LUNCH RF: 0 Referrals / Follow Up: Joe Torres MD [Primary Care Provider] - Within 2 Weeks Disposition Disposition (needs filled in before D/C Order can be placed): Hospice in Medical Facility
== END 2021-06-25 20:55 | disposition hospice, inpatient (51) | DRG 177 ==
LOC: ED 08:38 → PCU 09:05
PROVIDERS: Physician Assistant; Emergency Provider Emergency Medicine; PCP Family Medicine
DX: U07.1 COVID-19 (principal); J12.82 Pneumonia due to coronavirus disease 2019; J96.21 Acute and chronic respiratory failure with hypoxia; T17.500A Unspecified foreign body in bronchus causing asphyxiation, initial encounter; I13.0 Hypertensive heart and chronic kidney disease with heart failure and stage 1 through stage 4 chronic kidney disease, or unspecified chronic kidney disease; D68.9 Coagulation defect, unspecified; J90 Pleural effusion, not elsewhere classified; J44.0 Chronic obstructive pulmonary disease with (acute) lower respiratory infection; I27.81 Cor pulmonale (chronic); I50.9 Heart failure, unspecified; I95.9 Hypotension, unspecified; I48.91 Unspecified atrial fibrillation; N18.30 Chronic kidney disease, stage 3 unspecified; D50.9 Iron deficiency anemia, unspecified; K21.9 Gastro-esophageal reflux disease without esophagitis; G47.33 Obstructive sleep apnea (adult) (pediatric); Z79.01 Long term (current) use of anticoagulants; Z66 Do not resuscitate; Z79.899 Other long term (current) drug therapy; Z79.51 Long term (current) use of inhaled steroids; Z86.711 Personal history of pulmonary embolism; Z86.718 Personal history of other venous thrombosis and embolism; Z87.891 Personal history of nicotine dependence
CPT/HCPCS: 36415; 36600; 71045; 71250; 76604; 80048; 80053; 82803; 83605; 83615; 83880; 84075; 84484; 85025; 85610; 87040; 87070; 87077; 87186; 87205; 87426; 93005; 93306; 94002; 94003; 94640; 94667; 94668; 99251; 99285; J7050; Q9957; A4216; G0463; J0248; J1940; J3490